=== PATIENT | female | born 1935 | race Caucasian/White ===

== ENCOUNTER 2023-05-04 12:01 | Outpatient (OUT) | payer MEDICARE, SELFPAY ==
[2023-05-04 13:05] LABS: Basophils Percent Auto 0.6 % (0.2-2.0); Eosinophils Percent Auto 0.5 % (0.9-7.0); Hematocrit 43.5 % (36.0-48.0); Hemoglobin 14.1 g/dL (12.0-16.0); Immature Granulocytes Abs Auto 0.01 10^3/uL (0.00-0.03); Immature Granulocytes Pct Auto 0.2 % (0.0-0.5); Lymphocytes Absolute Auto 1.3 10^3/uL (1.2-3.8); Lymphocytes Percent Auto 20.4 % (20.5-60.0); Mean Corpuscular HGB Conc 32.4 g/dL (29.9-35.2); Mean Corpuscular Hemoglobin 30.5 pg (26.7-34.0); Mean Corpuscular Volume 94.2 fL (81.0-99.0); Mean Platelet Volume 9.4 fL (9.5-13.5); Monocytes Absolute Auto 0.5 10^3/uL (0.3-0.8); Neutrophils Absolute Auto 4.7 10^3/uL (1.4-6.5); Neutrophils Percent Auto 71.3 % (43.0-75.0); Platelet Count 221 10^3/uL (150-450); Red Blood Count 4.62 10^6/uL (4.20-5.40); Red Cell Distribution Width 13.2 % (11.0-15.0); White Blood Count 6.5 10^3/uL (4.0-11.0)
[2023-05-04 13:32] LABS: Alanine Aminotransferase 32 U/L (14-59); Albumin Globulin Ratio 0.9; Albumin Level 3.5 g/dL (3.4-5.0); Alkaline Phosphatase 138 U/L (46-116); Anion Gap 14.2; Aspartate Amino Transferase 23 U/L (15-37); BUN Creatinine Ratio 20.2; Bilirubin Total 0.5 mg/dL (0.2-1.0); Calcium 9.1 mg/dL (8.5-10.1); Carbon Dioxide 24.1 mmol/L (21.0-32.0); Chloride 104 mmol/L (98-107); Estimated GFR (African America 57 (>=60); Estimated GFR (Non-African Ame 47 (>=60); Globulin 3.7 g/dL; Glucose 98 mg/dL (74-106); Potassium 4.3 mmol/L (3.5-5.1); Sodium 138 mmol/L (136-145); Total Protein 7.2 g/dL (6.4-8.2)
[2023-05-04 14:02] LABS: Bilirubin Urine NEGATIVE (NEGATIVE); Blood Urine SMALL (NEGATIVE); Clarity Urine CLEAR (CLEAR); Color Urine YELLOW (YELLOW); Glucose Urine UA NEGATIVE (NEGATIVE); Ketones Urine NEGATIVE (NEGATIVE); Leukocyte Esterase Urine LARGE (NEGATIVE); Nitrite Urine POSITIVE (NEGATIVE); Protein Urine 100 mg/dL (NEG/TRACE); Specific Gravity Urine 1.015 (1.005-1.025); Urobilinogen Urine 0.2 EU/dL (0.2-1.0); pH Urine >=9.0 (5.0-9.0)
== END 2023-05-04 12:02 | disposition home or self-care (01) ==
LOC: LAB 12:14
PROVIDERS: PCP Internal Medicine
DX: R41.3 Other amnesia (principal)
CPT/HCPCS: 36415; 80053; 81003; 85025; 87086; 87150; 87186

== ENCOUNTER 2023-10-12 12:24 | Outpatient (OUT) | payer MEDICARE, SELFPAY ==
[2023-10-12 13:05] LABS: Alanine Aminotransferase 24 U/L (14-59); Albumin Globulin Ratio 0.7; Alkaline Phosphatase 126 U/L (46-116); Anion Gap 9.2; Aspartate Amino Transferase 19 U/L (15-37); BUN Creatinine Ratio 12.9; Bilirubin Total 0.3 mg/dL (0.2-1.0); Calcium 9.1 mg/dL (8.5-10.1); Carbon Dioxide 30.6 mmol/L (21.0-32.0); Chloride 106 mmol/L (98-107); Estimated GFR (African America 43 (>=60); Estimated GFR (Non-African Ame 36 (>=60); Globulin 4.1 g/dL; Glucose 99 mg/dL (74-106); Potassium 3.8 mmol/L (3.5-5.1); Sodium 142 mmol/L (136-145); Total Protein 7.1 g/dL (6.4-8.2)
[2023-10-12 13:12] LABS: Basophils Percent Auto 0.5 % (0.2-2.0); Eosinophils Absolute Auto 0.1 10^3/uL (0.0-0.7); Eosinophils Percent Auto 0.7 % (0.9-7.0); Hemoglobin 13.1 g/dL (12.0-16.0); Immature Granulocytes Abs Auto 0.02 10^3/uL (0.00-0.03); Immature Granulocytes Pct Auto 0.3 % (0.0-0.5); Lymphocytes Absolute Auto 1.3 10^3/uL (1.2-3.8); Lymphocytes Percent Auto 18.3 % (20.5-60.0); Mean Corpuscular HGB Conc 31.2 g/dL (29.9-35.2); Mean Corpuscular Hemoglobin 30.2 pg (26.7-34.0); Mean Corpuscular Volume 96.8 fL (81.0-99.0); Mean Platelet Volume 9.1 fL (9.5-13.5); Monocytes Absolute Auto 0.6 10^3/uL (0.3-0.8); Monocytes Percent Auto 7.5 % (1.7-12.0); Neutrophils Absolute Auto 5.3 10^3/uL (1.4-6.5); Neutrophils Percent Auto 72.7 % (43.0-75.0); Platelet Count 394 10^3/uL (150-450); Red Blood Count 4.34 10^6/uL (4.20-5.40); Red Cell Distribution Width 12.9 % (11.0-15.0); White Blood Count 7.3 10^3/uL (4.0-11.0)
== END 2023-10-12 12:25 | disposition home or self-care (01) ==
LOC: LAB 12:26
PROVIDERS: PCP Internal Medicine; Visit Provider Internal Medicine
DX: N18.31 Chronic kidney disease, stage 3a (principal); K76.0 Fatty (change of) liver, not elsewhere classified; R53.83 Other fatigue
CPT/HCPCS: 36415; 80053; 84443; 85025

== ENCOUNTER 2023-11-18 10:03 | Outpatient (OUT) | payer MEDICARE, SELFPAY ==
--- OUTSIDE RECORDS SUMMARY | 2023-11-18 10:06 | XMS_ITS | CCD ---
Author Name Unknown Address [address] [place] [address] Organization [facility] Care Team Providers Care Disk Sharpener Name Role Phone Moustapha Avina Primary Care Unavailable Daniel Domínguez Attending Unavailable Daniel Domínguez Admitting Unavailable Moustapha Avina Unavailable Unavailable Unavailable MOUSTAPHA AVINA Primary Care Physician [phone] Christel Ghotra Unavailable Unavailable Chasity Yuan Unavailable Unavailable NATE, DR NAYAK Attending Unavailable DANIELA, DR JACINTO Primary Care Unavailable NATE, DR NAYAK Consulting Unavailable HOAngelo, DR NAYAK Admitting Unavailable ZIEBER, DR ALEXANDER Hernandez Consulting Unavailable NADERER, DR DEL Pantoja Consulting Unavailable HAY, DR PATTERSON Consulting Unavailable HESHAM, LUZ Consulting Unavailable LUKirit .CASSIDY Consulting Unavailable LUE ., CASSIDY Bailey Admitting Unavailable LUE ., CASSIDY Bailey Attending Unavailable DANIELA, DR JACINTO Primary Care Unavailable YESICA ZAYAS Consulting Unavailable DANIELA, DR JACINTO Admitting Unavailable DANIELA, DR JACINTO Attending Unavailable DANIELA, DR JACINTO Consulting Unavailable DANIELA, DR JACINTO Primary Care Unavailable ZIEBCARMEN, DR ALEXANDER Hernandez Consulting Unavailable BENEDICT, DR MUNOZ Consulting Unavailable DANIELA, DR JACINTO Primary Care Unavailable BENEDICT, DR MUNOZ Admitting Unavailable BENEDICT, DR MUNOZ Attending Unavailable DANIELA, DR JACINTO Primary Care Unavailable DANIELA, DR JACINTO Admitting Unavailable DANIELA, DR JACINTO Attending Unavailable DANIELA, DR JACINTO Consulting Unavailable JUAREZ, DR GENO Kimbrough Consulting Unavailable DANIELA, DR JACINTO Admitting Unavailable DANIELA, DR JACINTO Attending Unavailable DANIELA, DR JACINTO Consulting Unavailable DANIELA, DR JACINTO Primary Care Unavailable ZIEBER, DR ALEXANDER Hernandez Consulting Unavailable DANIELA, DR JACINTO Primary Care Unavailable IRINA DUFFY Consulting Unavailable TATI, IRINA Admitting Unavailable IRINA DUFFY Attending Unavailable GENO LAU Consulting Unavailable Moustapha Avina Unavailable Margarito Harvey Unavailable KEIKO ROCK Attending Unavailable KEIKO ROCK Attending Unavailable Cassidy Parks Attending Unavailable Allergies Allergy Classification Reported Allergen(s) Allergy Type Date of Onset Reaction(s) Facility (2 sources) patient allergy list reviewed by nurse or physicia Propensity to adverse reactions 4 Comment:[employer] Other (1 source) No Known Medication Allergies; Translations: [No Known Medication Allergies] Propensity to adverse reactions (disorder) [facility] Repository Medications Current Medications Medication Drug Class(es) Dates Sig (Normalized) Sig (Original) amoxicillin 875 mg / clavulanate 125 mg oral tablet (3 sources) Penicillin-class Antibacterial Start: 08-23-2023 take 1 tablet by mouth every twelve hours Amoxicillin-Pot Clavulanate 875-125 MG 1 tablet Orally every 12 hrs for 7 days Aug, Active donepezil hydrochloride 10 mg oral tablet (14 sources) Start: 09-22-2022 donepezil 10 mg Tab Refills(s) 0 Start Date: 09/22/22 Status: Ordered doxepin hydrochloride 10 mg oral capsule (14 sources) Tricyclic Antidepressant Start: 09-22-2022 doxepin 10 mg Cap Refills(s) 0 Start Date: 09/22/22 Status: Ordered estradiol 0.1 mg/ml vaginal cream (3 sources) Estrogen Start: 09-22-2022 estradiol 0.1 mg/g Vag Crm See Instructions, 42.5 gm, Refill(s) 1, Apply pea sized amount to urethra 3x/week at night for 1 month, then 2x/week there after, [facility]pharmacy #[id number], 158, cm, 09/22/22 8:59:00 EST, Height/Length Dosing, 63.5, kg, 09/22/22 8:59:00 EST, Weight Dosing Start Date: 09/22/22 Status: Ordered lisinopril 10 mg oral tablet (14 sources) Angiotensin Converting Enzyme Inhibitor Start: 09-22-2022 lisinopril 10 mg Tab Refills(s) 0 Start Date: 09/22/22 Status: Ordered take 1 tablet by nadja th every twenty-four hours Lisinopril 20 MG 1 tablet Orally Once a day for 90 days Active memantine hydrochloride 5 mg oral tablet (14 sources) F-jangnk-J-aspartate Receptor Antagonist Start: 09-22-2022 memantine 5 mg Tab Refills(s) 0 Start Date: 09/22/22 Status: Ordered Completed/Discontinued Medications Medication Drug Class(es) Dates Sig (Normalized) Sig (Original) magnesium oxide 500 mg oral capsule (3 sources) Magnesium 500 MG CAPS TAKE 1 CAPSULE Daily Quantity: 0 Refills: 0 Ordered: 17-Aug-2021 DO Active Multi Vitamin Oral Tablet (3 sources) take 1 tablet by mouth once daily Multi Vitamin Oral Tablet TAKE 1 TABLET DAILY. Quantity: 0 Refills: 0 Ordered: 17-Aug-2021 DO Active sulfamethoxazole 800 mg / trimethoprim 160 mg oral tablet (7 sources) Dihydrofolate Reductase Inhibitor Antibacterial, Sulfonamide Antimicrobial Start: 05-09-2023 take 1 tablet by mouth every twelve hours Bactrim DS 800-160 MG 1 tablet Orally Twice a day for 5 days Apr, Not-Taking/PRN Vision Formula Eye Health Oral Capsule (3 sources) take 1 capsule by mouth once daily Vision Formula Eye Health Oral Capsule TAKE 1 CAPSULE Daily Quantity: 0 Refills: 0 Ordered: 17-Aug-2021 DO Active Problems Active Problems Problem Classification Problem Date Documented Da te Episodic/Chronic Abdominal pain (16 sources) Acute abdomen; Translations: [Left lower quadrant pain] Onset: 11-09-2016 Resolved: 01-01-2020 Episodic Allergic reactions (4 sources) Contact dermatitis; Translations: [Unspecified contact dermatitis, unspecified cause] Onset: 11-24-2022 Episodic Aortic; peripheral; and visceral artery aneurysms (17 sources) Aortic ectasia, unspecified site; Translations: [Dilatation of aorta] Onset: 06-08-2022 Chronic Blindness and vision defects (3 sources) Blindness AND/OR vision impairment level; Translations: [Profound impairment, both eyes, impairment level not further specified] Chronic Calculus of urinary tract (5 sources) Calculus of kidney; Translations: [Urolithiasis ] Onset: 10-15-2022 Episodic Cardiac dysrhythmias (3 sources) Palpitations; Translations: [Palpitations] Episodic Chronic kidney disease (16 sources) Chronic kidney disease; Translations: [Chronic kidney disease stage 3A ] Onset: 09-23-2021 09-21-2022 Chronic Delirium, dementia, and amnestic and other cognitive disorders (2 sources) Vascular dementia without behavioral disturbance; Translations: [Vascular dementia without behavioral disturbance] Chronic Diseases of white blood cells (1 source) Elevated white blood cell count, unspecified; Translations: [ELEVATED WHITE BLOOD CELL COUNT UNS] Onset: 06-21-2022 Chronic Disorders of lipid metabolism (3 sources) Hyperlipidemia 11-30-2013 Chronic Diverticulosis and diverticulitis (20 sources) Diverticulitis of large intestine without perforation or abscess without bleeding; Translations: [Diverticular disease] Onset: 10-24-2018 Resolved: 02-05-2020 Chronic Esophageal disorders (11 sources) Gastro-esophageal reflux disease with esophagitis; Translations: [Esophageal reflux finding] Onset: 08-09-2014 Resolved: 01-01-2020 09-21-2022 Chronic Essential hypertension (20 sources) Benign essential hypertension; Translations: [Benign essential hypertension] Onset: 06-21-2022 09-21-2022 Chronic Genitourinary congenital anomalies (1 source) Congenital multiple renal cysts; 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] Onset: 10-19-2022 Chronic Genitourinary symptoms and ill-defined conditions (8 sources) Dysuria; Translations: [Dysuria] Onset: 01-06-2018 Resolved: 10-04-2021 Episodic Immunizations and screening for infectious disease (5 sources) Patient encounter status; Translations: [Other specified vaccination] Resolved: 08-17-2021 Episodic Intestinal infection (14 sources) Enterocolitis due to Clostridium difficile, not specified as recurrent; Translations: [Clostridium difficile colitis] Onset: 04-12-2022 Episodic Malaise and fatigue (6 sources) Fatigue; Translations: [Other malaise and fatigue] Onset: 04-06-2016 Resolved: 01-01-2020 Episodic Miscellaneous mental health disorders (20 sources) Mental disorder; Translations: [Mental disorder, not otherwise specified] Chronic Mycoses (13 sources) Candidal intertrigo; Translations: [Candidiasis of skin and nail] Episodic Nonspecific chest pain (3 sources) Chest discomfort; Translations: [Other chest pain] Episodic Nutritional deficiencies (1 source) Moderate protein-calorie malnutrition; Translations: [MODERATE PROTEIN-CALORIE MLNUTRIT] Onset: 06-21-2022 Chronic Osteoarthritis (20 sources) Osteoarthritis of knee; Translations: [Unilateral primary osteoarthritis, right knee] Onset: 08-09-2014 Resolved: 01-01-2020 Chronic Osteoporosis (11 sources) Primary osteoporosis; Translations: [Age-related osteoporosis without current pathological fracture] Chronic Other and ill-defined cerebrovascular disease (11 sources) Cerebral amyloid angiopathy; Translations: [Cerebral amyloid angiopathy] Chronic Other and ill-defined cerebrovascular disease (2 sources) Cerebral amyloid angiopathy Chronic Other and unspecified benign neoplasm (1 source) Benign lipomatous neoplasm of kidney; Translations: [BENIGN LIPOMATOUS NEOPLASM KIDNEY] Onset: 10-19-2022 Episodic Other and unspecified benign neoplasm (1 source) Angiomyolipoma of kidney; Translations: [Benign lipomatous neoplasm of kidney] Onset: 11-24-2022 Episodic Other and unspecified benign neoplasm (1 source) Angiomyolipoma of right kidney 11-24-2022 Episodic Other circulatory disease (13 sources) Elevated blood-pressure reading without diagnosis of hypertension; Translations: [Elevated blood-pressure reading, without diagnosis of hypertension] Episodic Other connective tissue disease (1 source) Presence of left artificial hip joint; Translations: [PRESENCE LEFT ARTIFICIAL HIP JOINT] Onset: 11-11-2021 Chronic Other connective tissue disease (11 sources) History of total hip arthroplasty; Translations: [Presence of left artificial hip joint] Chronic Other ear and sense organ disorders (2 sources) Sensorineural hearing loss, bilateral; Translations: [Sensorineural hearing loss, bilateral] Chronic Other ear and sense organ disorders (11 sources) Bilateral tinnitus; Translations: [Tinnitus, bilateral] Episodic Other gastrointestinal disorders (11 sources) Irritable bowel syndrome characterized by constipation; Translations: [Irritable bowel syndrome with constipation] Chronic Other gastrointestinal disorders (13 sources) Constipation; Translations: [Constipation, unspecified] Resolved: 02-05-2020 Episodic Other gastrointestinal disorders (1 source) Constipation, unspecified Episodic Other hereditary and degenerative nervous system conditions (6 sources) Mild cognitive impairment, so stated; Translations: [MILD COGNITIVE IMPAIRMENT SO STATED] Onset: 12-30-2021 Chronic Other hereditary and degenerative nervous system conditions (9 sources) Impaired cognition; Translations: [Mild cognitive impairment, so stated] Chronic Other injuries and conditions due to external causes (1 source) Foreign body in right ear, initial encounter Episodic Other injuries and conditions due to external causes (2 sources) History of fall; Translations: [History of falling] Episodic Other liver diseases (11 sources) Non-alcoholic fatty liver; Translations: [Fatty (change of) liver, not elsewhere classified] Chronic Other liver diseases (2 sources) Fatty (change of) liver, not elsewhere classified Chronic Other liver diseases (2 sources) Steatosis of liver; Translations: [Fatty (change of) liver, not elsewhere classified] Chronic Other lower respiratory disease (3 sources) Dyspnea; Translations: [Other respiratory abnormalities] Episodic Other nervous system disorders (9 sources) Abnormal gait; Translations: [Unsteadiness on feet] Episodic Other nervous system disorders (2 sources) Unsteadiness on feet Episodic Other non-traumatic joint disorders (4 sources) Arthralgia of the pelvic region and thigh; Translations: [Pain in left hip] Onset: 03-31-2018 Resolved: 01-01-2020 Episodic Other nutritional; endocrine; and metabolic disorders (2 sources) Localized amyloidosis; 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] Onset: 09-19-2021 Chronic Other nutritional; endocrine; and metabolic disorders (13 sources) Overweight; Translations: [Overweight] Episodic Other nutritional; endocrine; and metabolic disorders (2 sources) Abnormal weight loss; Translations: [Abnormal weight loss] Episodic Ivonne-; endo-; and myocarditis; cardiomyopathy (except that caused by tuberculosis or sexually transmitted disease) (2 sources) Hypertrophic cardiomyopathy; Translations: [Other hypertrophic cardiomyopathy] Chronic Residual codes; unclassified (11 sources) Auditory hallucinations; Translations: [Auditory hallucinations] Episodic Residual codes; unclassified (2 sources) Auditory hallucinations Episodic Schizophrenia and other psychotic disorders (13 sources) Delusional disorder; Translations: [Delusional disorders] Chronic Spondylosis; intervertebral disc disorders; other back problems (16 sources) Spondylosis without myelopathy or radiculopathy, lumbar region; Translations: [Lumbar spondylosis] Onset: 11-11-2021 Chronic Unclassified (1 source) M16.12 - Unilateral primary osteoarthritis, left hip; Translations: [M16.12 - Unilateral primary osteoarthritis, left hip] Onset: 01-17-2019 Unclassified (3 sources) Entire lumbar disc (body structure) 01-18-2011 Unclassified (3 sources) GASTR-ESOPH RFLX DS ESPHGTS W/O BLD; Translations: [GASTR-ESOPH RFLX DS ESPHGTS W/O BLD] Onset: 05-25-2022 Unclassified (1 source) CONTACT W/AND (SUSP) EXPOS COVID-19; Translations: [CONTACT W/AND (SUSP) EXPOS COVID-19] Onset: 06-21-2022 Unclassified (2 sources) Elevation of levels of liver transaminase levels; Translations: [Elevation of levels of liver transaminase levels] Urinary tract infections (15 sources) Urinary tract infectious disease; Translations: [Urinary tract infection, site not specified] Onset: 05-03-2022 Episodic Past or Other Problems Problem Classification Problem Date Documented Date Episodic/Chronic Attention-deficit, conduct, and disruptive behavior disorders (2 sources) Smearing feces; Translations: [Fecal smearing] Onset: 7 Resolved: 0 Episodic Bacterial infection; unspecified site (2 sources) Bacterial infectious disease; Translations: [Bacterial infection, unspecified, in conditions classified elsewhere and of unspecified site] Onset: 8 Resolved: 0 Episodic Blindness and vision defects (2 sources) Visual hallucinations; Translations: [Visual hallucinations] Resolved: 1 Episodic Chronic kidney disease (3 sources) Chronic kidney disease Conditions associated with dizziness or vertigo (10 sources) Benign paroxysmal positional vertigo; Translations: [Benign paroxysmal vertigo, bilateral] Onset: 6 Resolved: 0 Episodic Esophageal disorders (9 sources) Esophageal disorders; Translations: [Gastroesophageal reflux disease with esophagitis without hemorrhage] Headache; including migraine (2 sources) Headache; Translations: [Headache, unspecified] Onset: 4 Resolved: 0 Episodic Menopausal disorders (7 sources) Atrophic vaginitis; Translations: [Postmenopausal atrophic vaginitis] Onset: 7 Resolved: 0 Chronic Nausea and vomiting (3 sources) Vomiting, unspecified; Translations: [VOMITING UNSPECIFIED] Onset: 2 Episodic Open wounds of extremities (2 sources) Laceration of upper arm; Translations: [Laceration without foreign body of right upper arm, initial encounter] Resolved: 2 Episodic Other aftercare (1 source) Other watermelon harvesting supervisor (current) drug therapy; Translations: [OTH GOLF COURSE MANAGER CURRENT DRUG THERAPY] Onset: 2 Episodic Other aftercare (1 source) tank terminal gauger (current) use of anticoagulants; Translations: [GOLF COURSE MANAGER CURRNT USE ANTICOAGULANTS] Onset: 2 Episodic Other ear and sense organ disorders (2 sources) Sensorineural hearing loss; Translations: [Unspecified sensorineural hearing loss] Onset: 6 Resolved: 0 Chronic Other ear and sense organ disorders (2 sources) Otitis externa of left ear; Translations: [Unspecified otitis externa, left ear] Onset: 6 Resolved: 0 Chronic Other ear and sense organ disorders (2 sources) Tinnitus; Translations: [Unspecified tinnitus] Onset: 6 Resolved: 0 Episodic Other ear and sense organ disorders (2 sources) Otalgia; Translations: [Otalgia, left ear] Onset: 6 Resolved: 0 Episodic Other gastrointestinal disorders (2 sources) Irritable bowel syndrome with diarrhea; Translations: [Irritable bowel syndrome with diarrhea] Onset: 8 Resolved: 0 Chronic Other gastrointestinal disorders (2 sources) Pharyngeal dysphagia; Translations: [Dysphagia, pharyngoesophageal phase] Onset: 7 Resolved: 0 Episodic Other gastrointestinal disorders (2 sources) Flatulence, eructation and gas pain; Translations: [Abdominal distension (gaseous)] Onset: 7 Resolved: 0 Episodic Other gastrointestinal disorders (2 sources) Heartburn; Translations: [Heartburn] Onset: 4 Resolved: 0 Episodic Other gastrointestinal disorders (2 sources) Oropharyngeal dysphagia; Translations: [Dysphagia, oropharyngeal phase] Onset: 8 Resolved: 0 Episodic Other gastrointestinal disorders (2 sources) Slow transit constipation; Translations: [Slow transit constipation] Onset: 7 Episodic Other hereditary and degenerative nervous system conditions (2 sources) Mild cognitive disorder ; Translations: [Mild cognitive impairment, so stated] Resolved: 2 Chronic Other liver diseases (2 sources) Elevated levels of transaminase & lactic acid dehydrogenase; Translations: [Nonspecific elevation of levels of transaminase or lactic acid dehydrogenase (LDH)] Onset: 5 Resolved: 0 Episodic Other nervous system disorders (2 sources) Paresthesia; Translations: [Paresthesia of skin] Onset: 4 Resolved: 0 Episodic Other non-traumatic joint disorders (4 sources) Pain in left hip; Translations: [PAIN IN LEFT HIP] Onset: 2 Episodic Other non-traumatic joint disorders (4 sources) Shoulder joint pain; Translations: [Pain in left shoulder] Onset: 6 Resolved: 0 Episodic Other non-traumatic joint disorders (2 sources) Arthralgia of the lower leg; Translations: [Pain in right knee] Resolved: 2 Episodic Other nutritional; endocrine; and metabolic disorders (5 sources) Obesity; Translations: [Obesity, unspecified] Onset: 4 Resolved: 0 Chronic Other nutritional; endocrine; and metabolic disorders (4 sources) Body mass index 30+ - obesity; Translations: [Body Mass Index 30.0-30.9, adult] Onset: 6 Resolved: 0 Chronic Other nutritional; endocrine; and metabolic disorders (6 sources) Obese class I; Translations: [Body mass index (BMI) 31.0-31.9, adult] Onset: 4 Resolved: 0 Chronic Other nutritional; endocrine; and metabolic disorders (2 sources) Simple obesity ; Translations: [Other obesity due to excess calories] Onset: 4 Resolved: 0 Chronic Other nutritional; endocrine; and metabolic disorders (1 source) Body mass index (BMI) 26.0-26.9, adult; Translations: [BODY MASS INDEX BMI 26.0-26.9 ADULT] Onset: 2 Episodic Other nutritional; endocrine; and metabolic disorders (2 sources) Body mass index 25-29 - overweight; Translations: [Body mass index 29.0-29.9, adult] Onset: 6 Resolved: 0 Episodic Other screening for suspected conditions (not mental disorders or infectious disease) (1 source) Other specified abnormal findings of blood chemistry; Translations: [OTH SPEC ABNORMAL FINDINGS BLD CHEM] Onset: 2 Episodic Other skin disorders (2 sources) Alopecia; Translations: [Unspecified alopecia] Onset: 4 Resolved: 0 Episodic Other skin disorders (2 sources) Actinic keratosis; Translations: [Actinic keratosis] Onset: 4 Resolved: 0 Episodic Other upper respiratory disease (2 sources) Vasomotor rhinitis; Translations: [Vasomotor rhinitis] Onset: 7 Resolved: 0 Chronic Skin and subcutaneous tissue infections (2 sources) Cellulitis of right upper limb; Translations: [Cellulitis of right upper limb] Resolved: 2 Episodic Spondylosis; intervertebral disc disorders; other back problems (6 sources) Low back pain; Translations: [Low back pain, unspecified] Onset: 5 Resolved: 2 Episodic Superficial injury; contusion (4 sources) Contusion of left foot; Translations: [Contusion of left foot, initial encounter] Resolved: 2 Episodic Unclassified (3 sources) Never smoked tobacco; Translations: [Never a smoker] Unclassified (1 source) GASTR-ESOPH RFLX DS ESPHGTS W/O BLD; Translations: [GASTR-ESOPH RFLX DS ESPHGTS W/O BLD] Onset: 2 Unclassified (11 sources) Elevated liver transaminase level; Translations: [Elevated liver transaminase level] Unclassified (2 sources) Other and unspecified Escherichia coli [E. coli] infection in conditions classified elsewhere and of unspecified site; Translations: [Other and unspecified Escherichia coli [E. coli] infection in conditions classified elsewhere and of unspecified site] Onset: 7 Resolved: 0 Results Test Name Value Interpretation Reference Range Facility Screenson 05-05-2023 Screens [id number] 1.00CD:127 Normal [facility] Ambulatory Visit Summaryon 0 05-04-2023 Ambulatory Visit Summary SHAYNA GARCIA :1935 Visit Date:05/04/2023 Ambulatory Visit Instructions Your Diagnosis Contact dermatitis Recurrent UTI Angiomyolipoma of right kidney Vaginal atrophy Your Care Team Attending Physician - Charly TODD, Cassidy Hanson Primary Care Physician - MOUSTAPHA AVINA DO This Is Your Medications List estradiol topical (estradiol 0.1 mg/g Vag Crm) Contact prescribing physician if questions or concerns donepezil (donepezil 10 mg Tab) doxepin (doxepin 10 mg Cap) lisinopril (lisinopril 10 mg Tab) memantine (memantine 5 mg Tab) Procedures Performed Appendectomy, bilat hip OA, Cholecystectomy, degenerative disc disease; DJD, Excision of melanoma, lumbar stenosis. Discharge Vitals Height 158 cm Height 62 in Weight 63 kg Weight 138.6 lb BMI 25.24 What to do next Scheduled Follow-Up Appointments Tuesday 8:30 AM EST With: PRANAV HARRY, KEIKO Beth Where: [facility] Patient Educationon 05-04-20 23 Patient Education Urinary Tract Infection, Adult A urinary tract infection (UTI) is an infection of any part of the urinary tract. The urinary tract includes: ? The kidneys. ? The ureters. ? The bladder. ? The urethra. These organs make, store, and get rid of pee (urine) in the body. What are the causes? This infection is caused by germs (bacteria) in your genital area. These germs grow and cause swelling (inflammation) of your urinary tract. What increases the risk? The following factors may make you more likely to develop this condition: ? Using a small, thin tube (catheter) to drain pee. ? Not being able to control when you pee or poop (incontinence). ? Being female. If you are female, these things can increase the risk: ? Using these methods to prevent : ? A medicine that kills sperm (spermicide). ? A device that blocks sperm (diaphragm). ? Having low levels of a female hormone (estrogen). ? Being . You are more likely to develop this condition if: ? You have genes that add to your risk. ? You are sexually active. ? You take antibiotic medicines. ? You have trouble peeing because of: ? A prostate that is bigger than normal, if you are male. ? A blockage in the part of your body that drains pee from the bladder. ? A kidney stone. ? A nerve condition that affects your bladder. ? Not getting enough to drink. ? Not peeing often enough. ? You have other conditions, such as: ? Diabetes. ? A weak disease-fighting system (immune system). ? Sickle cell disease. ? Gout. ? Injury of the spine. What are the signs or symptoms? Symptoms of this condition include: ? Needing to pee right away. ? Peeing small amounts often. ? Pain or burning when peeing. ? Blood in the pee. ? Pee that smells bad or not like normal. ? Trouble peeing. ? Pee that is cloudy. ? Fluid coming from the vagina, if you are female. ? Pain in the belly or lower back. Other symptoms include: ? Vomiting. ? Not feeling hungry. ? Feeling mixed up (confused). This may be the first symptom in older adults. ? Being tired and grouchy (irritable). ? A fever. ? Watery poop (diarrhea). How is this treated? ? Taking antibiotic medicine. ? Taking other medicines. ? Drinking enough water. In some cases, you may need to see a specialist. Follow these instructions at home: Medicines ? Take glgi-quc-ghlvhkj and prescription medicines only as told by your doctor. ? If you were prescribed an antibiotic medicine, take it as told by your doctor. Do not stop taking it even if you start to feel better. General instructions ? Make sure you: ? Pee until your bladder is empty. ? Do not hold pee for a long time. ? Empty your bladder after sex. ? Wipe from front to back after peeing or pooping if you are a female. Use each tissue one time when you wipe. ? Drink enough fluid to keep your pee pale yellow. ? Keep all follow-up visits. Contact a doctor if: ? You do not get better after 1?2 days. ? Your symptoms go away and then come back. Get help right away if: ? You have very bad back pain. ? You have very bad pain in your lower belly. ? You have a fever. ? You have chills. ? You feeling like you will vomit or you vomit. Summary ? A urinary tract infection (UTI) is an infection of any part of the urinary tract. ? This condition is caused by germs in your genital area. ? There are many risk factors for a UTI. ? Treatment includes antibiotic medicines. ? Drink enough fluid to keep your pee pale yellow. This information is not intended to replace advice given to you by your health care provider. Make sure you discuss any questions you have with your health care provider. Document Revised: 04/17/2021 Document Reviewed: 04/17/2021 [facility] Patient Education ? 2022 [employer]. Obstetrics and Gynecology Urinary Tract Infection, Adult A urinary tract infection (UTI) is an infection of any part of the urinary tract. The urinary tract includes: ? The kidneys. ? The ureters. ? The bladder. ? The urethra. These organs make, store, and get rid of pee (urine) in the body. What are the causes? This infection is caused by germs (bacteria) in your genital area. These germs grow and cause swelling (inflammation) of your urinary tract. What increases the risk? The following factors may make you more likely to develop this condition: ? Using a small, thin tube (catheter) to drain pee. ? Not being able to control when you pee or poop (incontinence). ? Being female. If you are female, these things can increase the risk: ? Using these methods to prevent : ? A medicine that kills sperm (spermicide). ? A device that blocks sperm (diaphragm). ? Having low levels of a female hormone (estrogen). ? Being . You are more likely to develop this condition if: ? You h (more content not included)... Normal [facility] Urology Office/Clinic Noteon 05-04-2023 Urology Office/Clinic Note Chief Complaint uti symptoms? 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 I explained the patient her anatomy several times and tried to get an answer on if the burning was urethral or not. Dysuria: no Incomplete bladder emptying: no Hematuria: mo Frequency: no Urgency: mild Nocturia: 2x Stream: good stream Leaking: no Post void dripping: no Wearing pads/ Depends: no Urge incontinence: no Stress incontinence: no Incontinence without Sensory Awareness: no Abdominal pain: no Flank pain: no Sexual complaints: no History of Present Illness Tests reviewed: reviewed UA I have reviewed the previous health record information and history for this patient from [facility] U[facility] I have reviewed and verified the staff HPI to be accurate for this encounter. There have been no associated fever, chills, flank pain, or blood in the urine. Denies any urinary infections since last encounter. Review of Systems PHQ Score Initial Depression Screen Score: 0 ROS - Provider Constitutional: denies weight loss, denies hot flashes. Eyes: denies eye problems. Gastrointestinal: denies nausea, denies vomiting. Cardiovascular: denies chest pain or angina. Integumentary: no dryness Musculoskeletal: denies musculoskeletal symptoms. ENMT: denies otolaryngeal symptoms. Respiratory: no shortness of breath. Heme/Lymph: denies easy bleeding tendency, denies easy bruising tendency. Psychiatric: no confusion, no anxiety. Genitourinary: See HPI. Physical Exam Vitals & Measurements HT: 62 in HT: 158 cm WT: 63 kg WT: 138.6 lb BMI: 25.24 General Appearance: alert , no acute distress, well nourished, well developed female. Genitourinary: bladder nonpalpable, no flank pain. Vaginal examination: Vaginal mucosa: There is severe vaginal atrophy The urethra is patent, orthotopic, moderate urethral mucosal prolapse. There are no masses or lesions. There is no urethral hypermobility and ABRAM is not seen. She is unable to correctly identify her pelvic muscles. Stage 2 (-1) anterior prolapse, stage 2 rectocele to level of introitus with valsalva. Left inner labia with mild irritation/bumps. Mild erythema BL. No discharge. Assessment/Plan 87 yo F here for follow up for recurrent UTIs and vaginal skin burning with urination. Presents with daughter today who serves as historian given her poor memory. 1. Contact dermatitis (L25.9: Unspecified contact dermatitis, unspecified cause) Previously evaluated by Anabelle Rock for burning type pain on the interior of the left labia. No itching. No discharge. Has had yeast infection previously and this feels different. Pt does not know if she has been using a barrier cream(Desitin, Aquaphor) or Estrace cream. Advised pt to start using a Barrier cream and Estrace Cream again. Prior notes states she had improvement with Estrace cream regarding pain at the urethra. Now she is having pain on the skin from urine. -Educated pt on proper application technique of the Estrace Cream. Apply pea-sized amount around the opening of the urethra and surrounding tissue 3 times per week at night for one month then 2 times per week after for maintenance. Pt to stop cream and notify office if she experiences breast tenderness and/or bleeding. Refill sent to pharm on file. -Advised pt to contact [employer] or automobile salesman regarding skin irritation. -Again discussed importance of bowel regimen. Pt was referred to a GI doctor at prior OV, but pt does not recall if she went to see the GI doctor. Pt has 1 yr f/u w/LIYA in 11/2023 sched already. 2. Recurrent UTI (N39.0: Urinary tract infection, site not specified) CT 10/15/22 showed no renal calculus. BBS 19 No UTIs since last visit. Pt does not know if she has been using estrogen cream 2x per week as instructed. -Advised pt on proper wiping techniques. -Restart Estrace cream as above 3. 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 -Follow up with Anabelle Rock as scheduled with renal ultrasound 4. 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 States dysuria/urethral pain has completely resolved previously when she started. Reminded patient of her outcomes and discussed trial of starting this again. -Restart Estrace cream I spent 30 minutes today with the patient: reviewing tests in (more content not included)... Normal [facility] Comment on above: Result Comment: Elec tronically Signed By: Cassidy Parks MD\.br\Date and Time Signed: 05/04/23 18:22 EDT\.br\Electronically Co-Signed By: Xuan Mortensen\.br\Date and Time Co-Signed: 05/04/23 11:43 EDT Consultation Noteon 12-11-19 Consultation Note [id number]#1. 00CD:127 [place] Ambulatory Visit Summaryon 0 11-24-2022 Ambulatory Visit Summary SMILEY GARCIAОлег Delcid :[id number] Visit Date:11/24/2022 Ambulatory Visit Instructions Your Diagnosis Recurrent UTI Tests Performed Urnls Dip Stick Auto w/o Microscopy POC 98059 Your Care Team Attending Physician - KEIKO ROCK PA-C Primary Care Physician - MOUSTAPHA AVINA DO This Is Your Medications List donepezil (donepezil 10 mg Tab) doxepin (doxepin 10 mg Cap) estradiol topical (estradiol 0.1 mg/g Vag Crm) lisinopril (lisinopril 10 mg Tab) memantine (memantine 5 mg Tab) Procedures Performed Appendectomy, bilat hip OA, Cholecystectomy, degenerative disc disease; DJD, Excision of melanoma, lumbar stenosis. Discharge Vitals Heart Rate (Peripheral) 70 Blood Pressure 127/86 Height 158 cm Height 62 in Weight 63 kg Weight 138.6 lb BMI 25.24 What to do next Scheduled Follow-Up Appointments Tuesday 8:30 AM EST With: KEIKO ROCK PA-C Where: [facility] Patient Educationon 11-25-19 Patient Education Obstetrics and Gynecology Atrophic Vaginitis Atrophic vaginitis is a condition in which the tissues that line the vagina become dry and thin. This condition is most common in women who have stopped having regular menstrual periods (are in menopause). This usually starts when a woman is 45?55 years old. That is the time when a woman's estrogen levels begin to drop (decrease). Estrogen is a female hormone. It helps to keep the tissues of the vagina moist. It stimulates the vagina to produce a clear fluid that lubricates the vagina for sexual intercourse. This fluid also protects the vagina from infection. Lack of estrogen can cause the lining of the vagina to get thinner and dryer. The vagina may also shrink in size. It may become less elastic. Atrophic vaginitis tends to get worse over time as a woman's estrogen level drops. What are the causes? This condition is caused by the normal drop in estrogen that happens around the time of menopause. What increases the risk? Certain conditions or situations may lower a woman's estrogen level, leading to a higher risk for atrophic vaginitis. You are more likely to develop this condition if: ? You are taking medicines that block estrogen. ? You have had your ovaries removed. ? You are being treated for cancer with X-ray (radiation) or medicines (chemotherapy). ? You have given or are . ? You are older than age 50. ? You smoke. What are the signs or symptoms? Symptoms of this condition include: ? Pain, soreness, or bleeding during sexual intercourse (dyspareunia). ? Vaginal burning, irritation, or itching. ? Pain or bleeding when a speculum is used in a vaginal exam (pelvic exam). ? Having burning pain when passing urine. ? Vaginal discharge that is brown or yellow. In some cases, there are no symptoms. How is this diagnosed? This condition is diagnosed by taking a medical history and doing a physical exam. This will include a pelvic exam that checks the vaginal tissues. Though rare, you may also have other tests, including: ? A urine test. ? A test that checks the acid balance in your vagina (acid balance test). How is this treated? Treatment for this condition depends on how severe your symptoms are. Treatment may include: ? Using an gdbv-hoz-swxmgpr vaginal lubricant before sex. ? Using a long-acting vaginal moisturizer. ? Using low-dose vaginal estrogen for moderate to severe symptoms that do not respond to other treatments. Options include creams, tablets, and inserts (vaginal rings). Before you use a vaginal estrogen, tell your health care provider if you have a history of: ? Breast cancer. ? Endometrial cancer. ? Blood clots. If you are not sexually active and your symptoms are very mild, you may not need treatment. Follow these instructions at home: Medicines ? Take oeuh-xks-mthhcxt and prescription medicines only as told by your health care provider. Do not use herbal or alternative medicines unless your health care provider says that you can. ? Use spvs-pgq-xsrzlwd creams, lubricants, or moisturizers for dryness only as directed by your health care provider. General instructions ? If your atrophic vaginitis is caused by menopause, discuss all of your menopause symptoms and treatment options with your health care provider. ? Do not douche. ? Do not use products that can make your vagina dry. These include: ? Scented feminine sprays. ? Scented tampons. ? Scented soaps. ? Vaginal intercourse can help to improve blood flow and elasticity of vaginal tissue. If it hurts to have sex, try using a lubricant or moisturizer just before having intercourse. Contact a health care provider if: ? Your discharge looks different than normal. ? Your vagina has an unusual smell. ? You have new symptoms. ? Your symptoms do not improve with treatment. ? Your symptoms get worse. Summary ? Atrophic vaginitis is a condition in which the tissues that line the vagina become dry and thin. It is most common in women who have stopped having regular menstrual periods (are in menopause). ? Treatment options include using vaginal lubricants and low-dose vaginal estrogen. ? Contact a health care provider if your vagina has an unusual smell, or if your symptoms get worse or do not improve after treatment. This information is not intended to replace advice given to you by your health care provider. Make sure you discuss any questions you have with your health care provider. Document Released: 01/20/2016 Document Revised: 08/18/2018 Document Reviewed: 06/01/2018 [facility] Patient Education ? 2019 [employer]. [place] Reminderson 11-24-2022 Reminders - From: KEIKO ROCK PA-C To: TONYA - Wally Rock; Sent: 11/24/2022 11:11:50 EST Show up: 10/27/2023 11:11:00 EST Subject: DEIDRE Due Date/Time: 11/25/2023 11:11:00 EST needs DEIDRE for angiomyolipoma f/u prior to 1 yr f/u in november 2023 [place] [facility] Office/Clinic Noteon 11-24-2022 Urology Office/Clinic Note Chief Complaint Pt is here for 2 month follow up HPI Staff Shayna is a 87 y.o. female here for 2 month follow up. Previous Dx: CKD, distended bladder, recurrent UTI, urinary tract stones, vaginal atrophy. No urological procedures. Pt is applying Estradiol cream 2x a week. No UTI since last visit. Previous PVR 30mL. CT ab/p w/o con done on 10/15/22 showed no renal calculus or hydronephrosis, multiple bilateral renal cysts, small angiomyolipoma in the upper pole of the RT kidney. Dysuria: denies, outside burning Incomplete bladder emptying: denies Hematuria: denies Frequency: denies Urgency: yes Nocturia: 1x a night Stream: steady stream Leaking: mild Post void dripping: yes Wearing pads/ Depends: yes wears pads on occasion Urge incontinence: denies Stress incontinence: denies Incontinence without Sensory Awareness: denies Abdominal pain: denies Flank pain: back pain but travels down to knee Sexual complaints: _ Review of Systems PHQ Score Initial Depression Screen Score: 0 no fever, chills, malaise, myalgia. no rash/lesions. no chest pain, palpitations, or SOB. no abdominal pain, nausea, vomiting. no unilateral calf swelling, redness, pain Physical Exam Vitals & Measurements HR: 70(Peripheral) BP: 127/86 HT: 62 in HT: 158 cm WT: 63 kg WT: 138.6 lb BMI: 25.24 General: nontoxic, NAD Mouth: moist mucosa Lungs: normal respiratory effort Cardio: regular rate, good distal perfusion Abdomen: nondistended, no suprapubic distention or tenderness, no CVA tenderness Neurologic: Grossly normal Skin: No rashes or suspicious lesions Assessment/Plan 1. 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 will obtain DEIDRE in 1 yr to document stability. then due to advanced age, we can likely stop monitoring thereafter. Ordered: E&M of Est. Patient Moderate 30-39 Min 20849 E&M of Est. Patient Moderate 30-39 Min 10356 2. Recurrent UTI (N39.0: Urinary tract infection, site not specified) No UTIs since last visit. Has been using estrogen cream 2x per week as instructed. CT 10/15/22 showed no renal calculus. Ordered: E&M of Est. Patient Moderate 30-39 Min 24691 E&M of Est. Patient Moderate 30-39 Min 13240 Urnls Dip Stick Auto w/o Microscopy POC 02332 3. 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 States dysuria/urethral pain has completely resolved. Very pleased. Ordered: E&M of Est. Patient Moderate 30-39 Min 99982 E&M of Est. Patient Moderate 30-39 Min 92028 4. Contact dermatitis (L25.9: Unspecified contact dermatitis, unspecified cause) Reports burning type pain on the interior of the left labia. No itching. No discharge. Has had yeast infection previously and this feels different. Tried Gold Manriquez powder. Has been going on for months. No evidence of infection noted on pelvic exam 09/22/22. Likely secondary to #3 or contact dermatitis from the urine. Continue estrogen cream. Dc powder. Apply barrier cream (Desitin, Aquaphor) several times daily to both labia to protect. Monitor. If sx do not resolve then return to office for pelvic exam/possible swabs. Ordered: E&M of Est. Patient Moderate 30-39 Min 17433 E&M of Est. Patient Moderate 30-39 Min 70663 f/u 1 yr w DEIDRE prior. sooner if vaginal pain does not resolve w use of barrier cream. Total time spent reviewing previous notes/results/externa l documents, preparing the chart, conducting the encounter with the patient and family, ordering tests/medications, and documenting the encounter was 30 minutes. Follow-up With When Contact Information KEIKO ROCK PA-C, URL Within 1 year Additional Instructions: Patient Education Atrophic Vaginitis Problem List/Past Medical History Ongoing Angiomyolipoma of right kidney Benign essential hypertension Chronic kidney disease Contact dermatitis Gastro-esophageal reflux disease with esophagitis Hyperlipidemia Lumbar disc Recurrent UTI Urinary tract stones Vaginal atrophy Historical No qualifying data Procedure/Surgical History Appendectomy, bilat hip OA, Cholecystectomy, degenerative disc disease; DJD, Excision of melanoma, lumbar stenosis. Medications donepezil 10 mg Tab doxepin 10 mg Cap estradiol 0.1 mg/g Vag Crm, See Instructions, 1 refills lisinopril 10 mg Tab memantine 5 mg Tab Allergies No Known Medication Allergies Social History Tobacco Never (less than 100 in lifetime) Tobacco Use:., 09/22/2022 Immunizations Vaccine Date Status influenza virus vaccine, inactivated 07/17/2021 Recorded influenza virus vaccine, inactivated 06/04/2020 Recorded pneumococcal 13-valent vaccine 02/15/2020 Recorded Lab Results Ambulatory Point of Care Results Bilirubin Urine Dipstick: Negative (11/24/22 09:27:00) Blood Urine Dipstick: Negative (11/24/22 09:27:00) Glu (more content not included)... Normal [facility] Comment on above: Result Comment: Elec tronically Signed By: KEIKO ROCK PA-C\prema\Date and Time Signed: 11/24/22 12:[address] ABD/PELVIS WO CONon 10-15 CT ABD/PELVIS WO CON EXAMINATION: CT ABD/PELVIS WO CON, 10/15/2022 8:59 AM EST HISTORY: Urolithiasis COMPARISON: 04/07/2022 TECHNIQUE: CT scan of the abdomen and pelvis was performed without IV contrast. CT dose reduction technique was used, including Automated Exposure Control. ABDOMEN/PELVIS FINDINGS: Lower Chest: Unremarkable. Liver: Normal nonenhanced appearance and contour. Biliary/Gallbladder: Prior cholecystectomy. Pancreas: There is a stable cystic lesion in the tail the pancreas measuring 7.8 mm, as seen on previous exams. No pancreatic ductal dilatation identified. Spleen: Unremarkable. Adrenal Glands: Unremarkable. Kidneys: Multiple bilateral renal cysts are present. There is a tiny fat-containing lesion in the upper pole the right kidney measuring 6.8 mm, consistent with an angiomyolipoma. No renal calculus or hydronephrosis identified. Gastrointestinal/Ivonne toneum: No acute abnormality. Mild colonic diverticulosis is present. The appendix is not discretely visualized. No free air or free fluid. Vascular: There are moderate scattered atherosclerotic calcifications present. Lymph Nodes: No enlarged lymph nodes by CT size criteria. Pelvic Organs: Unremarkable. Bladder: Unremarkable. Bones: No acute osseous abnormality. There is a left-sided total hip arthroplasty. A sclerotic lesion in the right sacrum likely is a bone island. There are extensive multilevel degenerative changes present in the visualized spine, greatest at L4-L5 where there is a prominent disc osteophyte complex and facet hypertrophy causing severe spinal canal stenosis and severe bilateral neural foraminal stenosis. Soft tissues: Unremarkable. IMPRESSION: 1. No renal calculus or hydronephrosis identified. 2. Multiple bilateral renal cysts. 3. Small angiomyolipoma in the upper pole the right kidney. 4. Numerous chronic findings in the body of the report. Electronically authenticated by: YESICA ZAYAS Date: 2022-10-15 09:34 Normal [facility] CREATININEon 06-08-2022 Creatinine [Mass/Vol] 1.22 mg/dL Critically high 0.55-1.02 [facility] Comment on above: Performed By: #### C BRITTANI ####[facility] [id number] [address]Dr. Pammissy Prudencio EGFR-AF [place] 51 mL/min/1.73m2 Critically low >=60 [facility] Comment on above: Performed By: #### C BRITTANI ####[facility] [id number] [address]Dr. Errol Flannery EGFR-NON AF [place] 42 mL/min/1.73m2 Critically low >=60 [facility] Comment on above: Performed By: #### C BRITTANI ####[facility] [id number] [address]Dr. Errol Flannery CTA CHEST WO W CONon 022 CTA CHEST WO W CON EXAMINATION: CTA CHEST WO W CON HISTORY: Dilatation of aorta COMPARISON: Upper GI study 05/21/2022, CT abdomen pelvis 11/13/2016 TECHNIQUE: Multi-planar CT images were created with IV contrast. Axial, Coronal, and Sagittal images. Dose reduction techniques were achieved by using automated exposure control and/or adjustment of mA and/or kV according to patient size and/or use of iterative reconstruction technique. 3-D reconstruction was performed on a separate workstation. FINDINGS: VASCULATURE: No pulmonary embolism or abnormal opacity. LUNGS: 9 mm geographic shaped nodule within the anterior lateral left costophrenic angle, present since at least 11/13/2016. PLEURA: No mass, effusion, or pneumothorax. PAOLA: No mass or adenopathy. MEDIASTINUM: No mass or adenopathy. CARDIAC: No enlargement or pericardial effusion. AORTA: No aneurysm or dissection. Maximum diameter of ascending aorta is 3.4 cm; maximum diameter of arch is 3.2 cm. CHEST WALL: No mass or axillary adenopathy. BONES: No bone lesion or fracture. LIMITED ABDOMEN: Small right renal cyst. Mild/moderate renal cortical thinning bilaterally.. Limited images of the upper abdomen. OTHER: Negative. IMPRESSION: 1. No aneurysm or abnormal dilation of the aorta. 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 2. Stable, chronic nodule within the left lateral costophrenic angle consistent with benign etiology/scarring. Electronically authenticated by: ALEXANDER DUMONT Date: 2022-06-08 10:18 Normal [facility] CARDIAC ZECHARIAH 3-6on 2 CK [Catalytic activity/Vol] 35 U/L Normal 26-192 [facility] Comment on above: Performed By: #### L ACT #### [facility] [address] [address] [address] Errol Flannery CK.MB [Mass/Vol] 1.42 ng/mL Normal <=3.60 [facility] Comment on above: Performed By: #### L ACT #### [facility] [address] [address] [address] Errol Flannery HSTROP 6.4 pg/mL Normal 4.0-51.3 [facility] Comment on above: Result Comment: CUT- OFF POINTS HAVE BEEN ESTABLISHED BASED ON THE FOURTH UNIVERSAL DEFINITIONS OF MYOCARDIAL INFARCTION. THE UPPER REFERENCE LIMIT (URL) OF TROPONIN, DEFINED THE 99TH PERCENTILE OF cTnI DISTRIBUTION IN A REFERENCE POPULATION, HAS BEEN CONFIRMED THE DECISION THRESHOLD FOR [place] DIAGNOSIS. Performed By: #### L ACT #### [facility] [address] [place], [place] [address] Dr. Errol Flannery CARDIAC ZECHARIAH ADMITon 022 CK [Catalytic activity/Vol] 41 U/L Normal 26-192 [facility] Comment on above: Performed By: #### C MADM, BMP ####[facility] [address] [place], [place] [address]ZqDr. Errol Flannery CK.MB [Mass/Vol] 1.36 ng/mL Normal <=3.60 The [facility] Comment on above: Performed By: #### C MADM, BMP ####[facility] [address] [place] [id number] Flannery HSTROP 5.8 pg/mL Normal 4.0-51.3 The [facility] Comment on above: Result Comment: CUT- OFF POINTS HAVE BEEN ESTABLISHED BASED ON THE FOURTH UNIVERSAL DEFINITIONS OF MYOCARDIAL INFARCTION. THE UPPER REFERENCE LIMIT (URL) OF TROPONIN, DEFINED THE 99TH PERCENTILE OF cTnI DISTRIBUTION IN A REFERENCE POPULATION, HAS BEEN CONFIRMED THE DECISION THRESHOLD FOR [place] DIAGNOSIS. Performed By: #### C MADM, BMP ####[facility] [address] [place] [id number]. Errol Flannery RICHELLE 65 ng/mL Normal 9-82 [facility] Comment on above: Performed By: #### C ALICIA, BMP ####[facility] [address] [place] [id number]. Errol Flannery CBC AUTO DIFFon 04-29-2022 BASO # 0.0 103/ul Normal 0.0-0.1 [facility] Comment on above: Performed By: #### L ACT #### [facility] [address] [place] [address] [address] Errol Flannery Basophils/100 WBC (Bld) 0.2 % Normal 0.2-2.0 [facility] Comment on above: Performed By: #### L ACT #### [facility] [address] [place] [address] [address] Errol Flannery EO # 0.0 103/ul Normal 0.0-0.7 [facility] Comment on above: Performed By: #### L ACT #### [facility] [address] [place] [address] [address] Errol Flannery Eosinophils/100 WBC (Bld) 0.1 % Critically low 0.9-7.0 [facility] Comment on above: Performed By: #### L ACT #### [facility] [address] [place] [address] [address] Errol Flannery Erythrocyte distribution width (RBC) [Ratio] 13.9 % Normal 11.0-15.0 [facility] Comment on above: Performed By: #### L ACT #### [facility] [address] [place] [address] [address] Errol Flannery Hematocrit (Bld) [Volume fraction] 40.9 % Normal 36.0-48.0 [facility] Comment on above: Performed By: #### L ACT #### [facility] [address] [place] [address] [address] Errol Flannery Hemoglobin (Bld) [Mass/Vol] 13.3 g/dL Normal 12.0-16.0 [facility] Comment on above: Performed By: #### L ACT #### [facility] [address] [place] [address] Dr. Errol Flannery IG # 0.02 10e3/ul Normal 0.00-0.03 [facility] Comment on above: Performed By: #### L ACT #### [facility] [address] [place] [address] Dr. Errol Flannery IG % 0.2 % Normal 0.0-0.5 [facility] Comment on above: Performed By: #### L ACT #### [facility] [address] [place] [address] Dr. Errol Flannery LYMPH # 0.9 103/ul Critically low 1.2-3.8 [facility] Comment on above: Performed By: #### L ACT #### [facility] [address] [place] [address] [address] Errol Flannery Lymphocytes/100 WBC (Bld) 9.2 % Critically low 20.5-60.0 [facility] Comment on above: Performed By: #### L ACT #### [facility] [address] [place] [address] [address] Errol Flannery MANUAL DIFF REQ NO Normal [facility] Comment on above: Performed By: #### L ACT #### [facility] [address] [place] [address] Dr. Errol Flannery MCH (RBC) [Entitic mass] 30.6 pg Normal 26.7-34.0 [facility] Comment on above: Performed By: #### L ACT #### [facility] [address] [place] [address] [address] Errol Flannery MCHC (RBC) [Mass/Vol] 32.5 g/dL Normal 29.9-35.2 [facility] Comment on above: Performed By: #### L ACT #### [facility] [address] [place] [address] [address] Errol Flannery MCV (RBC) [Entitic vol] 94.0 fL Normal 81.0-99.0 [facility] Comment on above: Performed By: #### L ACT #### [facility] [address] [place] [address] [address] Errol Flannery MONO # 0.6 103/ul Normal 0.3-0.8 [facility] Comment on above: Performed By: #### L ACT #### [facility] [address] [place] [address] Dr. Errol Flannery Monocytes/100 WBC (Bld) 6.8 % Normal 1.7-12.0 [facility] Comment on above: Performed By: #### L ACT #### [facility] [address] [place] [address] [address] Errol Flannery NEUT # 7.9 103/ul Critically high 1.4-6.5 [facility] Comment on above: Performed By: #### L ACT #### [facility] [address] [place] [address] [address] Errol Flannery Neutrophils/100 WBC (Bld) 83.5 % Critically high 43.0-75.0 [facility] Comment on above: Performed By: #### L ACT #### [facility] [address] [place] [address] [address] Errol Flannery Platelet mean volume (Bld) [Entitic vol] 9.5 fL Normal 9.5-13.5 [facility] Comment on above: Performed By: #### L ACT #### [facility] [address] [place] [address] [address] Errol Flannery PLT 244 103/ul Normal 150-450 [facility] Comment on above: Performed By: #### L ACT #### [facility] [address] [place] [address] Dr. Errol Flannery RBC 4.35 106/ul Normal 4.20-5.40 [facility] Comment on above: Performed By: #### L ACT #### [facility] [address] [place] [address] Dr. Errol Flannery WBC 9.4 103/ul Normal 4.0-11.0 [facility] Comment on above: Performed By: #### L ACT #### [facility] [address] [place] [address] Dr. Errol Flannery ER URINE PROFILEon 2 Bilirubin Ql (U) Negative Normal NEGATIVE [facility] Comment on above: Performed By: #### L ACT #### [facility] [address] [place] [address] Dr. Errol Flannery Clarity (U) CLEAR Normal CLEAR [facility] Comment on above: Performed By: #### L ACT #### [facility] [address] [place] [address] Dr. Errol Flannery Color (U) LT. YELLOW Normal YELLOW [facility] Comment on above: Performed By: #### L ACT #### [facility] [address] [place] [address] Dr. Errol JAMES A micrscopic examination will be performed if indicated. Normal [facility] Comment on above: Performed By: #### L ACT #### [facility] [address] [place] [address] Dr. Errol Flannery Glucose Ql (U) Negative Normal NEGATIVE [facility] Comment on above: Performed By: #### L ACT #### [facility] [address] [place] [address] Dr. Errol Flannery Hemoglobin Ql (U) Negative Normal NEGATIVE [facility] Comment on above: Performed By: #### L ACT #### [facility] [address] [place] [address] Dr. Errol Flannery Ketones Ql (U) TRACE Abnormal NEGATIVE [facility] Comment on above: Performed By: #### L ACT #### [facility] [address] [place] [address] Dr. Errol Flannery LEUKOCYTES MODERATE Abnormal NEGATIVE [facility] Comment on above: Performed By: #### L ACT #### [facility] [address] [place] [address] Dr. Errol Flannery Nitrite Ql (U) Negative Normal NEGATIVE [facility] Comment on above: Performed By: #### L ACT #### [facility] [address] [place] [address] Dr. Errol Flannery pH (U) 6.5 [pH] Normal 5-9 [facility] Comment on above: Performed By: #### L ACT #### [facility] [address] [place] [address] Dr. Errol Flannery SPEC GRAVITY 1.010 Normal 1.005-<=1.025 [facility] Comment on above: Performed By: #### L ACT #### [facility] [address] [place] [address] Dr. Errol Flannery UA PROTEIN Negative Normal NEGATIVE/ TRACE [facility] Comment on above: Performed By: #### L ACT #### [facility] [address] [place] [address] Dr. Errol Flannery UR MICRO IND INDICATED Normal [facility] Comment on above: Performed By: #### L ACT #### [facility] [address] [place] [address] Dr. Errol Flannery Urobilinogen Qn (U) 0.2 {Jordyn'U}/dL Normal 0.2 - 1. 0 [facility] Comment on above: Performed By: #### L ACT #### [facility] [address] [place] [address] Dr. Errol Flannery LACTATE/LACTIC ACIDon 2021 Lactate [Moles/Vol] 0.8 mmol/L Normal 0.4-1.9 The [facility] Comment on above: Performed By: #### L ACT #### [facility] [address] [place] [address] Dr. Errol Flannery Lactate [Moles/Vol] 0.9 mmol/L Normal 0.4-1.9 [facility] Comment on above: Performed By: #### L ACT ####[facility] [address] [place] [address]Dr. Errol Flannery PROF CHEM 8 (BAS METB)on Anion gap [Moles/Vol] 11.5 mmol/L Normal [facility] Comment on above: Performed By: #### C ALICIA, BMP ####[facility] [address] [place], [place] [address]Dr. Errol Flannery Calcium [Mass/Vol] 8.9 mg/dL Normal 8.5-10.1 [facility] Comment on above: Performed By: #### C ALICIA, BMP ####[facility] [address] [place], [place] [address]Dr. Errol Flannery Chloride [Moles/Vol] 104 mmol/L Normal 98-107 [facility] Comment on above: Performed By: #### C ALICIA, BMP ####[facility] [address] [place], [place] [address]Dr. Errol Flannery CO2 [Moles/Vol] 28.3 mmol/L Normal 21.0-32.0 [facility] Comment on above: Performed By: #### Audra VARGAS, BMP ####[facility] [address] [place], [place] [address]Dr. Errol Flannery Creatinine [Mass/Vol] 1.04 mg/dL Critically high 0.55-1.02 [facility] Comment on above: Performed By: #### Audra VARGAS, BMP ####[facility] [address] [place], [place] [address]Dr. Errol Flannery EGFR-AF [place] >60 Normal >=60 [facility] Comment on above: Performed By: #### C ALICIA, BMP ####[facility] [address] [place], [place] [address]Dr. Errol Flannery EGFR-NON AF [place] 50 mL/min/1.73m2 Critically low >=60 [facility] Comment on above: Performed By: #### Audra VARGAS, BMP ####[facility] [address] [place] [address]Dr. Errol Flannery Glucose [Mass/Vol] 131 mg/dL Critically high 74-106 T [facility] Comment on above: Performed By: #### C ALICIA, BMP ####[facility] [address] [place] [address]Dr. Errol Flannery Potassium [Moles/Vol] 3.8 mmol/L Normal 3.5-5.1 [facility] Comment on above: Performed By: #### C ALICIA, BMP ####[facility] [address] [place] [address]Dr. Errol Flannery Sodium [Moles/Vol] 140 mmol/L Normal 136-145 [facility] Comment on above: Performed By: #### C ALICIA, BMP ####[facility] [address] [place], [place] [address]Dr. Errol Flannery Urea nitrogen [Mass/Vol] 16.0 mg/dL Normal 7.0-18.0 [facility] Comment on above: Performed By: #### C ALICIA, BMP ####[facility] [address] [place] [address]Dr. Errol Flannery Urea nitrogen/Creatinine [Mass ratio] 15.4 mg/mg Normal [facility] Comment on above: Performed By: #### C ALICIA, BMP ####[facility] [address] [place] [address]Dr. Errol Flannery URINE MICROSCOPIC ONLYon BACTERIA TRACE Abnormal NONE SEEN [facility] Comment on above: Performed By: #### L ACT #### [facility] [address] [place] [address] Dr. Errol Flannery Bacteria identified Cx Nom (U) NOT INDICATED Normal [facility] Comment on above: Performed By: #### L ACT #### [facility] [address] [place] [address] Dr. Errol Flannery CAST NONE SEEN Normal NONE SEEN [facility] Comment on above: Performed By: #### L ACT #### [facility] [address] [place] [address] Dr. Errol Flannery Crystals LM Nom (Urine sed) NONE SEEN Normal NONE SEEN [facility] Comment on above: Performed By: #### L ACT #### [facility] [address] [place] [address] [address] Errol Flannery Epithelial cells LM Ql (Urine sed) FEW Abnormal NONE SEEN /RARE [facility] Comment on above: Performed By: #### L ACT #### [facility] [address] [place] [address] [address] Errol Flannery MUCOUS NONE SEEN Normal NONE SEEN [facility] Comment on above: Performed By: #### L ACT #### [facility] [address] [place] [address] [address] Errol Flannery RBC 0-2 Normal 0-2 [facility] Comment on above: Performed By: #### L ACT #### [facility] [address] [place] [address] [address] Errol Flannery WBC 2-5 Abnormal NONE SEEN [facility] Comment on above: Performed By: #### L ACT #### [facility] [address] [place] [address] Dr. Errol Flannery XR CHEST 1 Von 04-29-2022 XR CHEST 1 V EXAMINATION: XR CHES T 1 V HISTORY: Patient vomited COMPARISON: Chest x-ray 04/06/2022 TECHNIQUE: Portable chest FINDINGS: The lung parenchyma is free of consolidation or infiltrate. No pneumothorax or pleural effusion. The cardiac, mediastinal and hilar contours are normal. The visualized osseous structures exhibit no gross acute abnormality. Degenerative changes of both acromioclavicular joints. IMPRESSION: No acute cardiopulmonary abnormality. Electronically authenticated by: GENO LAU Date: 2022-04-28 23:01 Normal [facility] CBC AUTO DIFFon 04-12-2022 BASO # 0.0 103/ul Normal 0.0-0.1 [facility] Comment on above: Performed By: #### C BC ####[facility] [address] [place] [address]Dr. Errol Flannery Basophils/100 WBC (Bld) 0.5 % Normal 0.2-2.0 [facility] Comment on above: Performed By: #### C BC ####[facility] [address] [place] [id number]. Errol Flannery EO # 0.1 103/ul Normal 0.0-0.7 [facility] Comment on above: Performed By: #### C BC ####[facility] [address] [place] [address]Dr. Errol Flannery Eosinophils/100 WBC (Bld) 1.9 % Normal 0.9-7.0 [facility] Comment on above: Performed By: #### C BC ####[facility] [address] [place], [place] [address]Dr. Errol Flannery Erythrocyte distribution width (RBC) [Ratio] 14.1 % Normal 11.0-15.0 [facility] Comment on above: Performed By: #### C BC ####[facility] [address] [place], [place] [address]Dr. Errol Flannery Hematocrit (Bld) [Volume fraction] 35.1 % Critically low 36.0-48.0 [facility] Comment on above: Performed By: #### C BC ####[facility] [address] [place] [address]Dr. Errol Flannery Hemoglobin (Bld) [Mass/Vol] 11.5 g/dL Critically low 12.0-16.0 [facility] Comment on above: Performed By: #### C BC ####[facility] [address] [place], [place] [address]Dr. Errol Flannery IG # 0.02 10e3/ul Normal 0.00-0.03 [facility] Comment on above: Performed By: #### C BC ####[facility] [address] [place] [address]Dr. Errol Flannery IG % 0.3 % Normal 0.0-0.5 [facility] Comment on above: Performed By: #### C BC ####[facility] [address] [place], [place] [address]Dr. Errol Flannery LYMPH # 1.4 103/ul Normal 1.2-3.8 [facility] Comment on above: Performed By: #### C BC ####[facility] [address] [place] [id number]. Errol Flannery Lymphocytes/100 WBC (Bld) 24.2 % Normal 20.5-60.0 [facility] Comment on above: Performed By: #### C BC ####[facility] [address] [place] [id number]. Errol Prudencio MANUAL DIFF REQ NO Normal The [facility] Comment on above: Performed By: #### C BC ####[facility] [address] [place] [id number]. Errol Prudencio MCH (RBC) [Entitic mass] 30.6 pg Normal 26.7-34.0 [facility] Comment on above: Performed By: #### C BC ####[facility] [address] [place], [place] [address]Dr. Errol Prudencio MCHC (RBC) [Mass/Vol] 32.8 g/dL Normal 29.9-35.2 [facility] Comment on above: Performed By: #### C BC ####[facility] [address] [place] [id number]. Errol Flannery MCV (RBC) [Entitic vol] 93.4 fL Normal 81.0-99.0 [facility] Comment on above: Performed By: #### C BC ####[facility] [address] [place] [address]Dr. Pammissy Prudencio MONO # 0.6 103/ul Normal 0.3-0.8 [facility] Comment on above: Performed By: #### C BC ####[facility] [address] [place], [place] [address]Dr. Errol Prudencio Monocytes/100 WBC (Bld) 10.0 % Normal 1.7-12.0 [facility] Comment on above: Performed By: #### C BC ####[facility] [address] [place], [place] [address]Dr. Errol Flannery NEUT # 3.7 103/ul Normal 1.4-6.5 [facility] Comment on above: Performed By: #### C BC ####[facility] [address] [place] [id number]. Errol Flannery Neutrophils/100 WBC (Bld) 63.1 % Normal 43.0-75.0 [facility] Comment on above: Performed By: #### C BC ####[facility] [address] [place] [id number]. Errol Flannery Platelet mean volume (Bld) [Entitic vol] 9.8 fL Normal 9.5-13.5 [facility] Comment on above: Performed By: #### C BC ####[facility] [address] [place] [id number]. Errol Flannery PLT 237 103/ul Normal 150-450 [facility] Comment on above: Performed By: #### C BC ####[facility] [address] [place] [id number]. Errol Flannery RBC 3.76 106/ul Critically low 4.20-5.40 [facility] Comment on above: Performed By: #### C BC ####[facility] [address] [place] [id number]. Errol Flannery WBC 5.8 103/ul Normal 4.0-11.0 [facility] Comment on above: Performed By: #### C BC ####[facility] [address] [place] [id number] Flannery PROF 14(COMP METB)on 022 Albumin [Mass/Vol] 2.2 g/dL Critically low 3.4-5.0 [facility] Comment on above: Performed By: #### L ACT #### [facility] [address] [place] [address] [address] Errol Flannery Albumin/Globulin [Mass ratio] 0.7 {ratio} Normal [facility] Comment on above: Performed By: #### L ACT #### [facility] [address] [place] [address] [address] Errol Flannery ALP [Catalytic activity/Vol] 65 U/L Normal 46-116 [facility] Comment on above: Performed By: #### L ACT #### [facility] [address] [place] [address] [address] Errol Flannery ALT [Catalytic activity/Vol] 32 U/L Normal 14-59 [facility] Comment on above: Performed By: #### L ACT #### [facility] [address] [place] [address] [address] Errol Flannery Anion gap [Moles/Vol] 8.6 mmol/L Normal [facility] Comment on above: Performed By: #### L ACT #### [facility] [address] [place] [address] [address] Errol Flannery AST [Catalytic activity/Vol] 21 U/L Normal 15-37 [facility] Comment on above: Performed By: #### L ACT #### [facility] [address] [place] [address] Dr. Errol Flannery Bilirubin [Mass/Vol] 0.2 mg/dL Normal 0.2-1.0 [facility] Comment on above: Performed By: #### L ACT #### [facility] [address] [place] [address] Dr. Errol Flannery Calcium [Mass/Vol] 8.5 mg/dL Normal 8.5-10.1 [facility] Comment on above: Performed By: #### L ACT #### [facility] [address] [place] [address] Dr. Errol Flannery Chloride [Moles/Vol] 109 mmol/L Critically high 98-107 [facility] Comment on above: Performed By: #### L ACT #### [facility] [address] [place] [address] [address] Errol Flannery CO2 [Moles/Vol] 29.0 mmol/L Normal 21.0-32.0 [facility] Comment on above: Performed By: #### L ACT #### [facility] [address] [place] [address] [address] Errol Flannery Creatinine [Mass/Vol] 1.01 mg/dL Normal 0.55-1.02 [facility] Comment on above: Performed By: #### L ACT #### [facility] [address] [place] [address] [address] Errol Flannery EGFR-AF [place] >60 Normal >=60 [facility] Comment on above: Performed By: #### L ACT #### [facility] [address] [place] [address] [address] Errol Flannery EGFR-NON AF [place] 52 mL/min/1.73m2 Critically low >=60 [facility] Comment on above: Performed By: #### L ACT #### [facility] [address] [place] [address] [address] Errol Flannery Globulin (S) [Mass/Vol] 3.1 g/dL Normal [facility] Comment on above: Performed By: #### L ACT #### [facility] [address] [place] [address] [address] Errol Flannery Glucose [Mass/Vol] 98 mg/dL Normal 74-106 [facility] Comment on above: Performed By: #### L ACT #### [facility] [address] [place] [address] [address] Errol Flannery Potassium [Moles/Vol] 4.6 mmol/L Normal 3.5-5.1 [facility] Comment on above: Performed By: #### L ACT #### [facility] [facility] [address] [address] [address] Errol Flannery Protein [Mass/Vol] 5.3 g/dL Critically low 6.4-8.2 Th [facility] Comment on above: Performed By: #### L ACT #### [facility] [address] [address] [address] Errol Flannery Sodium [Moles/Vol] 142 mmol/L Normal 136-145 [facility] Comment on above: Performed By: #### L ACT #### [facility] [address] [address] [address] Errol Flannery Urea nitrogen [Mass/Vol] 16.0 mg/dL Normal 7.0-18.0 [facility] Comment on above: Performed By: #### L ACT #### [facility] [address] [address] [address] Errol Flannery Urea nitrogen/Creatinine [Mass ratio] 15.8 mg/mg Normal The [facility] Comment on above: Performed By: #### L ACT #### [facility] [address] [address] [address] Errol Flannery CBC AUTO DIFFon 04-11-2022 BASO # 0.0 103/ul Normal 0.0-0.1 [facility] Comment on above: Performed By: #### C BC ####[facility] [address] [address]DrElana Flannery Basophils/100 WBC (Bld) 0.6 % Normal 0.2-2.0 The [facility] Comment on above: Performed By: #### C BC ####[facility] R[address] [place], [place] [address]Dr. Errol Flannery EO # 0.1 103/ul Normal 0.0-0.7 The [facility] Comment on above: Performed By: #### C BC ####[facility] [address] [place], [place] [address]Dr. Errol Flannery Eosinophils/100 WBC (Bld) 1.8 % Normal 0.9-7.0 The [facility] Comment on above: Performed By: #### C BC ####[facility] Huhmfwandr[address] [place], [place] [address]Dr. Errol Flannery Erythrocyte distribution width (RBC) [Ratio] 14.0 % Normal 11.0-15.0 The [facility] Comment on above: Performed By: #### C BC ####[facility] E[address] [place], [place] [address]DrElana Flannery Hematocrit (Bld) [Volume fraction] 34.5 % Critically low 36.0-48.0 The [facility] Comment on above: Performed By: #### C BC ####[facility] [address] [place], [place] [address]DrElana Flannery Hemoglobin (Bld) [Mass/Vol] 11.1 g/dL Critically low 12.0-16.0 The [facility] Comment on above: Performed By: #### C BC ####[facility] [address] [place], [place] [id number]. Errol Flannery IG # 0.02 10e3/ul Normal 0.00-0.03 The [facility] Comment on above: Performed By: #### C BC ####[facility] [address] [address]Dr. Errol Flannery IG % 0.3 % Normal 0.0-0.5 The [facility] Comment on above: Performed By: #### C BC ####[facility] [address] [address]DrElana Flannery LYMPH # 1.6 103/ul Normal 1.2-3.8 The [facility] Comment on above: Performed By: #### C BC ####[facility] [address] [place], [place] [address]DrElana Flannery Lymphocytes/100 WBC (Bld) 21.9 % Normal 20.5-60.0 The [facility] Comment on above: Performed By: #### C BC ####[facility] K[address]joixte[address] [place], [place] [address]DrElana Flannery MANUAL DIFF REQ NO Normal [facility] Comment on above: Performed By: #### C BC ####[facility] [address] [place], [place] [address]DrElana Flannery MCH (RBC) [Entitic mass] 30.1 pg Normal 26.7-34.0 The [facility] Comment on above: Performed By: #### C BC ####[facility] Faynradeav[address] [place], [place] [address]DrElana Flannery MCHC (RBC) [Mass/Vol] 32.2 g/dL Normal 29.9-35.2 The [facility] Comment on above: Performed By: #### C BC ####[facility] T[address] [place], [place] [address]DrElana Flannery MCV (RBC) [Entitic vol] 93.5 fL Normal 81.0-99.0 The [facility] Comment on above: Performed By: #### C BC ####[facility] Diegywticl[address] [place], [place] [address]DrElana Flannery MONO # 0.7 103/ul Normal 0.3-0.8 The [facility] Comment on above: Performed By: #### C BC ####[facility] [address] [id number]. Errol Flannery Monocytes/100 WBC (Bld) 9.4 % Normal 1.7-12.0 The [facility] Comment on above: Performed By: #### C BC ####[facility] [address] [address]Dr. Errol Flannery NEUT # 4.8 103/ul Normal 1.4-6.5 The [facility] Comment on above: Performed By: #### C BC ####[facility] [address] [address]Dr. Errol Flannery Neutrophils/100 WBC (Bld) 66.0 % Normal 43.0-75.0 The [facility] Comment on above: Performed By: #### C BC ####[facility] [address] [address]Dr. Errol Flannery Platelet mean volume (Bld) [Entitic vol] 9.2 fL Critically low 9.5-13.5 The [facility] Comment on above: Performed By: #### C BC ####[facility] [address] [address]Dr. Errol Flannery PLT 240 103/ul Normal 150-450 The [facility] Comment on above: Performed By: #### C BC ####[facility] [address] [id number]. Errol Flannery RBC 3.69 106/ul Critically low 4.20-5.40 The [facility] Comment on above: Performed By: #### C BC ####[facility] [address] [id number]. Errol Flannery WBC 7.3 103/ul Normal 4.0-11.0 The [facility] Comment on above: Performed By: #### C BC ####[facility] A[address]agrsvhnu[address] [place], [place] [address]DrElana Errol Flannery GI PANEL (PCR)on 04-11-2022 Adenovirus F 40/41 Not detected Normal NOT DETECTED [facility] Comment on above: Performed By: #### G IPANEL ####[facility] Qvwlrqkaf[address] [place], [place] [address]Dr. Errol Flannery Astrovirus Not detected Normal NOT DETECTED The [facility] Comment on above: Performed By: #### G IPANEL ####[facility] [address]phq[address] [place], [place] [address]Dr. Errol Flannery C. Diff toxin A/B Detected Critically abnormal NOT DETECTED The [facility] Comment on above: Performed By: #### G IPANEL ####[facility] Cr[address]iq[address]kx[address] [place], [place] [address]Dr. Errol Flannery Campylobacter Not detected Normal NOT DETECTED The [facility] Comment on above: Performed By: #### G IPANEL ####[facility] M[address]ybwitoz[address] [place], [place] [address]Dr. Errol Flannery Cryptosporidium Not detected Normal NOT DETECTED The [facility] Comment on above: Performed By: #### G IPANEL ####[facility] [address]xq[address] [place], [place] [address]Dr. Errol Flannery Cyclos. Cayetanensis Not detected Normal NOT DETECTED The [facility] Comment on above: Performed By: #### G IPANEL ####[facility] Brtdsaebyw[address] [place], [place] [address]Dr. Errol Flannery E. Coli O157 Not Applicable Normal Not Applicable The [facility] Comment on above: Performed By: #### G IPANEL ####[facility] Dogkkqmnzu[address] [place], [place] [address]Dr. Errol Flannery E. histolytica Not detected Normal NOT DETECTED The [facility] Comment on above: Performed By: #### G IPANEL ####[facility] Ozjjddlysk[address] [place], [place] [address]Dr. Errol Flannery EAEC Not detected Normal NOT DETECTED The [facility] Comment on above: Performed By: #### G IPANEL ####[facility] G[address]fos[address] [place], [place] [address]Dr. Errol Flannery EIEC Not detected Normal NOT DETECTED The [facility] Comment on above: Performed By: #### G IPANEL ####[facility] [address] [address]Dr. Errol Flannery EPEC Not detected Normal NOT DETECTED The [facility] Comment on above: Performed By: #### G IPANEL ####[facility] [address] [address]Dr. Errol Flannery ETEC Not detected Normal NOT DETECTED The [facility] Comment on above: Performed By: #### G IPANEL ####[facility] [address] [address]Dr. Errol Flannery G. Lamblia Not detected Normal NOT DETECTED The [facility] Comment on above: Performed By: #### G IPANEL ####[facility] [address]wmojtkq[address] [place], [place] [address]Dr. Errol Flannery GIPANEL CONTROLS PASSED Normal The [facility] Comment on above: Performed By: #### G IPANEL ####[facility] Wksawovcpq[address] [place], [place] [address]Dr. Errol Flannery GIPNL JUNAID HEADER GI PANEL BACTERIA Normal T [facility] Comment on above: Performed By: #### G IPANEL ####[facility] Zicaonecot[address] [place], [place] [address]Dr. Yimissy Flannery GIPNLHD ECOLI GI PANEL DIARRHEAGENIC E.COLI / SHIGELLA Normal The [facility] Comment on above: Performed By: #### G IPANEL ####[facility] [address]jbfjw[address] [place], [place] [address]Dr. Yilan Flannery GIPNLHD INFO SEE BELOW Normal The [facility] Comment on above: Result Comment: EAEC - Enteroaggregative E. Coli EPEC- Enteropathogenic E. Coli ETEC- Enterotoxigenic E. Coli lt/st STEC- Shigella-like toxin-producing E. Coli stx1/stx2 EIEC- Shigella/Enteroinvasive E. Coli Performed By: #### G IPANEL ####[facility] G[address]qnibrwc[address] [place], [place] [address]Dr. Yilan Flannery GIPNLHD PARASITES GI PANEL PARASITES Normal The [facility] Comment on above: Performed By: #### G IPANEL ####[facility] [address] [address]Dr. Errol Flannery GIPNLHD VIRUS GI PANEL VIRUSES Normal The [facility] Comment on above: Performed By: #### G IPANEL ####[facility] [address] [address]Dr. Errol Flannery Norovirus GI/GII Not detected Normal NOT DETECTED The [facility] Comment on above: Performed By: #### G IPANEL ####[facility] N[address]ogs[address]hb[address] [place], [place] [address]Dr. Errol Flannery P. Shigelloides Not detected Normal NOT DETECTED The [facility] Comment on above: Performed By: #### G IPANEL ####[facility] Tptbxqszzb[address] [place], [place] [address]Dr. Errol Flannery Rotavirus A Not detected Normal NOT DETECTED The [facility] Comment on above: Performed By: #### G IPANEL ####[facility] Imsvfpabaz[address] [place], [place] [address]Dr. Errol Flannery Salmonella Not detected Normal NOT DETECTED The [facility] Comment on above: Performed By: #### G IPANEL ####[facility] [address]mzt[address] [place], [place] [address]Dr. Errol Flannery Sapovirus Not detected Normal NOT DETECTED The [facility] Comment on above: Performed By: #### G IPANEL ####[facility] R[address]tt[address]mf[address] [place], [place] [address]Dr. Errol Flannery STEC Not detected Normal NOT DETECTED The [facility] Comment on above: Performed By: #### G IPANEL ####[facility] Pmloutccma[address] [place], [place] [address]Dr. Errol Flannery Vibrio Not detected Normal NOT DETECTED The [facility] Comment on above: Performed By: #### G IPANEL ####[facility] X[address]av[address]gy[address] [place], [place] [address]Dr. Errol Flannery Vibrio Cholera Not detected Normal NOT DETECTED The [facility] Comment on above: Performed By: #### G IPANEL ####[facility] [address] [id number] Flannery Y. Enterocolitica Not detected Normal NOT DETECTED The [facility] Comment on above: Performed By: #### G IPANEL ####[facility] [address] [id number]. Errol Flannery OCC BLD IMMUNOASSAYon 2021 OCCULT BLOOD Positive Abnormal NEGATIVE [facility] Comment on above: Performed By: #### O EDISON ####[facility] [address] [phone]. Errol Flannery PROF 14(COMP METB)on 022 Albumin [Mass/Vol] 2.1 g/dL Critically low 3.4-5.0 Th e [facility] Comment on above: Performed By: #### C BC #### [facility] [address] [place] [address] Dr. Errol Flannery Albumin/Globulin [Mass ratio] 0.7 {ratio} Normal [facility] Comment on above: Performed By: #### C BC #### [facility] [address] [place] [address] Dr. Errol Flannery ALP [Catalytic activity/Vol] 60 U/L Normal 46-116 [facility] Comment on above: Performed By: #### C BC #### [facility] [address] [address] [address] Errol Flannery ALT [Catalytic activity/Vol] 30 U/L Normal 14-59 The [facility] Comment on above: Performed By: #### C BC #### [facility] [address] [address] [address] Errol Flannery Anion gap [Moles/Vol] 8.9 mmol/L Normal [facility] Comment on above: Performed By: #### C BC #### [facility] [address] [address] [address] Errol Flannery AST [Catalytic activity/Vol] 20 U/L Normal 15-37 [facility] Comment on above: Performed By: #### C BC #### [facility] [address] [place] [address] Dr. Errol Flannery Bilirubin [Mass/Vol] 0.3 mg/dL Normal 0.2-1.0 [facility] Comment on above: Performed By: #### C BC #### [facility] [address] [place] [address] Dr. Errol Flannery Calcium [Mass/Vol] 8.2 mg/dL Critically low 8.5-10.1 Th e [facility] Comment on above: Performed By: #### C BC #### [facility] [address] [place] [address] Dr. Errol Flannery Chloride [Moles/Vol] 109 mmol/L Critically high 98-107 [facility] Comment on above: Performed By: #### C BC #### [facility] [address] [place] [address] Dr. Errol Flannery CO2 [Moles/Vol] 27.7 mmol/L Normal 21.0-32.0 [facility] Comment on above: Performed By: #### C BC #### [facility] [address] [place] [address] Dr. Errol Flannery Creatinine [Mass/Vol] 1.03 mg/dL Critically high 0.55-1.02 [facility] Comment on above: Performed By: #### C BC #### [facility] [address] [place] [address] Dr. Errol Flannery EGFR-AF [place] >60 Normal >=60 The [facility] Comment on above: Performed By: #### C BC #### [facility] [address] [place] [address] Dr. Errol Flannery EGFR-NON AF [place] 51 mL/min/1.73m2 Critically low >=60 The [facility] Comment on above: Performed By: #### C BC #### [facility] [address] [place] [address] Dr. Errol Flannery Globulin (S) [Mass/Vol] 3.0 g/dL Normal The [facility] Comment on above: Performed By: #### C BC #### [facility] [address] [place] [address] Dr. Errol Flannery Glucose [Mass/Vol] 91 mg/dL Normal 74-106 [facility] Comment on above: Performed By: #### C BC #### [facility] [address] [place] [address] Dr. Errol Flannery Potassium [Moles/Vol] 3.6 mmol/L Normal 3.5-5.1 [facility] Comment on above: Performed By: #### C BC #### [facility] [address] [place] [address] Dr. Errol Flannery Protein [Mass/Vol] 5.1 g/dL Critically low 6.4-8.2 Th [facility] Comment on above: Performed By: #### C BC #### [facility] [address] [place] [address] Dr. Errol Flannery Sodium [Moles/Vol] 142 mmol/L Normal 136-145 [facility] Comment on above: Performed By: #### C BC #### [facility] [address] [place] [address] Dr. Errol Flannery Urea nitrogen [Mass/Vol] 11.0 mg/dL Normal 7.0-18.0 [facility] Comment on above: Performed By: #### C BC #### [facility] [address] [place] [address] Dr. Errol Flannery Urea nitrogen/Creatinine [Mass ratio] 10.7 mg/mg Normal [facility] Comment on above: Performed By: #### C BC #### [facility] [address] [place] [address] Dr. Errol Flannery CBC AUTO DIFFon 04-10-2022 BASO # 0.0 103/ul Normal 0.0-0.1 [facility] Comment on above: Performed By: #### C BC #### [facility] [address] [place] [address] Dr. Errol Flannery Basophils/100 WBC (Bld) 0.4 % Normal 0.2-2.0 [facility] Comment on above: Performed By: #### C BC #### [facility] [address] [place] [address] Dr. Errol Flannery EO # 0.1 103/ul Normal 0.0-0.7 [facility] Comment on above: Performed By: #### C BC #### [facility] [address] [place] [address] Dr. Errol Flannery Eosinophils/100 WBC (Bld) 2.1 % Normal 0.9-7.0 [facility] Comment on above: Performed By: #### C BC #### [facility] [address] [place] [address] Dr. Errol Flannery Erythrocyte distribution width (RBC) [Ratio] 13.8 % Normal 11.0-15.0 [facility] Comment on above: Performed By: #### C BC #### [facility] [address] [place] [address] Dr. Errol Flannery Hematocrit (Bld) [Volume fraction] 35.9 % Critically low 36.0-48.0 [facility] Comment on above: Performed By: #### C BC #### [facility] [address] [place] [address] Dr. Errol Flannery Hemoglobin (Bld) [Mass/Vol] 11.6 g/dL Critically low 12.0-16.0 [facility] Comment on above: Performed By: #### C BC #### [facility] [address] [place] [address] Dr. Errol Flannery IG # 0.03 10e3/ul Normal 0.00-0.03 [facility] Comment on above: Performed By: #### C BC #### [facility] [address] [place] [address] Dr. Errol Flannery IG % 0.5 % Normal 0.0-0.5 The [facility] Comment on above: Performed By: #### C BC #### [facility] [address] [place] [address] Dr. Errol Flannery LYMPH # 1.2 103/ul Normal 1.2-3.8 [facility] Comment on above: Performed By: #### C BC #### [facility] [address] [place] [address] Dr. Errol Flannery Lymphocytes/100 WBC (Bld) 21.7 % Normal 20.5-60.0 [facility] Comment on above: Performed By: #### C BC #### [facility] [address] [place] [address] Dr. Errol Flannery MANUAL DIFF REQ NO Normal [facility] Comment on above: Performed By: #### C BC #### [facility] [address] [place] [address] Dr. Errol Flannery MCH (RBC) [Entitic mass] 30.0 pg Normal 26.7-34.0 [facility] Comment on above: Performed By: #### C BC #### [facility] [address] [place] [address] Dr. Errol Flannery MCHC (RBC) [Mass/Vol] 32.3 g/dL Normal 29.9-35.2 [facility] Comment on above: Performed By: #### C BC #### [facility] [address] [place] [address] Dr. Errol Flannery MCV (RBC) [Entitic vol] 92.8 fL Normal 81.0-99.0 [facility] Comment on above: Performed By: #### C BC #### [facility] [address] [place] [address] Dr. Errol Flannery MONO # 0.6 103/ul Normal 0.3-0.8 [facility] Comment on above: Performed By: #### C BC #### [facility] [address] [place] [address] Dr. Errol Flannery Monocytes/100 WBC (Bld) 10.5 % Normal 1.7-12.0 [facility] Comment on above: Performed By: #### C BC #### [facility] [address] [place] [address] Dr. Errol Flannery NEUT # 3.6 103/ul Normal 1.4-6.5 [facility] Comment on above: Performed By: #### C BC #### [facility] [address] [place] [address] Dr. Errol Flannery Neutrophils/100 WBC (Bld) 64.8 % Normal 43.0-75.0 [facility] Comment on above: Performed By: #### C BC #### [facility] [address] [address] [address] Errol Flannery Platelet mean volume (Bld) [Entitic vol] 9.0 fL Critically low 9.5-13.5 [facility] Comment on above: Performed By: #### C BC #### [facility] [address] [address] [address] Errol Flannery PLT 250 103/ul Normal 150-450 [facility] Comment on above: Performed By: #### C BC #### [facility] [address] [address] [address] Errol Flannery RBC 3.87 106/ul Critically low 4.20-5.40 [facility] Comment on above: Performed By: #### C BC #### [facility] [address] [place] [address] Dr. Errol Flannery WBC 5.6 103/ul Normal 4.0-11.0 [facility] Comment on above: Performed By: #### C BC #### [facility] [address] [place] [address] Dr. Errol Flannery PROF 14(COMP METB)on 022 Albumin [Mass/Vol] 2.2 g/dL Critically low 3.4-5.0 [facility] Comment on above: Performed By: #### L ACT #### [facility] [address] [place] [address] Dr. Errol Flannery Albumin/Globulin [Mass ratio] 0.8 {ratio} Normal [facility] Comment on above: Performed By: #### L ACT #### [facility] [address] [place] [address] Dr. Errol Flannery ALP [Catalytic activity/Vol] 67 U/L Normal 46-116 [facility] Comment on above: Performed By: #### L ACT #### [facility] [address] [place] [address] Dr. Errol Flannery ALT [Catalytic activity/Vol] 27 U/L Normal 14-59 [facility] Comment on above: Performed By: #### L ACT #### [facility] [address] [address] [address] Errol Flannery Anion gap [Moles/Vol] 8.9 mmol/L Normal [facility] [facility] Comment on above: Performed By: #### L ACT #### [facility] [address] [address] [address] Errol Flannery AST [Catalytic activity/Vol] 18 U/L Normal 15-37 [facility] Comment on above: Performed By: #### L ACT #### [facility] [address] [address] [address] Errol Flannery Bilirubin [Mass/Vol] 0.3 mg/dL Normal 0.2-1.0 [facility] Comment on above: Performed By: #### L ACT #### [facility] [address] [address] [address] Errol Flannery Calcium [Mass/Vol] 8.3 mg/dL Critically low 8.5-10.1 Th [facility] Comment on above: Performed By: #### L ACT #### [facility] [address] [address] [address] Errol Flannery Chloride [Moles/Vol] 110 mmol/L Critically high 98-107 [facility] Comment on above: Performed By: #### L ACT #### [facility] [address] [address] [address] Errol Flannery CO2 [Moles/Vol] 26.6 mmol/L Normal 21.0-32.0 [facility] Comment on above: Performed By: #### L ACT #### [facility] [address] [address] [address] Errol Flannery Creatinine [Mass/Vol] 0.95 mg/dL Normal 0.55-1.02 [facility] Comment on above: Performed By: #### L ACT #### [facility] [address] [address] [address] Errol Flannery EGFR-AF [place] >60 Normal >=60 [facility] Comment on above: Performed By: #### L ACT #### [facility] [address] [address] [address] Errol Flannery EGFR-NON AF [place] 56 mL/min/1.73m2 Critically low >=60 [facility] Comment on above: Performed By: #### L ACT #### [facility] [address] [address] [address] Errol Flannery Globulin (S) [Mass/Vol] 2.9 g/dL Normal [facility] Comment on above: Performed By: #### L ACT #### [facility] [address] [address] [address] Errol Flannery Glucose [Mass/Vol] 93 mg/dL Normal 74-106 [facility] Comment on above: Performed By: #### L ACT #### [facility] [address] [address] [address] Errol Flannery Potassium [Moles/Vol] 3.5 mmol/L Normal 3.5-5.1 [facility] Comment on above: Performed By: #### L ACT #### [facility] [address] [address] [address] Errol Flannery Protein [Mass/Vol] 5.1 g/dL Critically low 6.4-8.2 Th [facility] Comment on above: Performed By: #### L ACT #### [facility] [address] [address] [address] Errol Flannery Sodium [Moles/Vol] 142 mmol/L Normal 136-145 [facility] Comment on above: Performed By: #### L ACT #### [facility] [address] [address] [address] Errol Flannery Urea nitrogen [Mass/Vol] 10.0 mg/dL Normal 7.0-18.0 [facility] Comment on above: Performed By: #### L ACT #### [facility] [address] [address] [address] Errol Flannery Urea nitrogen/Creatinine [Mass ratio] 10.5 mg/mg Normal [facility] Comment on above: Performed By: #### L ACT #### [facility] [address] [address] [address] Errol Flannery CBC AUTO DIFFon 04-09-2022 BASO # 0.0 103/ul Normal 0.0-0.1 [facility] Comment on above: Performed By: #### C BC #### [facility] [address] [place] [address] Dr. Errol Flannery Basophils/100 WBC (Bld) 0.3 % Normal 0.2-2.0 [facility] Comment on above: Performed By: #### C BC #### [facility] [address] [place] [address] Dr. Errol Flannery EO # 0.1 103/ul Normal 0.0-0.7 [facility] Comment on above: Performed By: #### C BC #### [facility] [address] [place] [address] Dr. Errol Flannery Eosinophils/100 WBC (Bld) 1.9 % Normal 0.9-7.0 [facility] Comment on above: Performed By: #### C BC #### [facility] [address] [place] [address] Dr. Errol Flannery Erythrocyte distribution width (RBC) [Ratio] 13.5 % Normal 11.0-15.0 [facility] Comment on above: Performed By: #### C BC #### [facility] [address] [place] [address] Dr. Errol Flannery Hematocrit (Bld) [Volume fraction] 34.8 % Critically low 36.0-48.0 [facility] Comment on above: Performed By: #### C BC #### [facility] [address] [place] [address] Dr. Errol Flannery Hemoglobin (Bld) [Mass/Vol] 11.3 g/dL Critically low 12.0-16.0 [facility] Comment on above: Performed By: #### C BC #### [facility] [address] [place] [address] Dr. Errol Flannery IG # 0.02 10e3/ul Normal 0.00-0.03 [facility] Comment on above: Performed By: #### C BC #### [facility] [address] [place] [address] Dr. Errol Flannery IG % 0.3 % Normal 0.0-0.5 [facility] Comment on above: Performed By: #### C BC #### [facility] [address] [place] [address] Dr. Errol Flannery LYMPH # 1.4 103/ul Normal 1.2-3.8 [facility] Comment on above: Performed By: #### C BC #### [facility] [address] [place] [address] Dr. Errol Flannery Lymphocytes/100 WBC (Bld) 23.8 % Normal 20.5-60.0 [facility] Comment on above: Performed By: #### C BC #### [facility] [address] [place] [address] Dr. Errol Flannery MANUAL DIFF REQ NO Normal [facility] Comment on above: Performed By: #### C BC #### [facility] [address] [place] [address] Dr. Errol Flannery MCH (RBC) [Entitic mass] 30.4 pg Normal 26.7-34.0 [facility] Comment on above: Performed By: #### C BC #### [facility] [address] [place] [address] Dr. Errol Flannery MCHC (RBC) [Mass/Vol] 32.5 g/dL Normal 29.9-35.2 [facility] Comment on above: Performed By: #### C BC #### [facility] [address] [place] [address] Dr. Errol Flannery MCV (RBC) [Entitic vol] 93.5 fL Normal 81.0-99.0 [facility] Comment on above: Performed By: #### C BC #### [facility] [address] [place] [address] Dr. Errol Flannery MONO # 0.6 103/ul Normal 0.3-0.8 [facility] Comment on above: Performed By: #### C BC #### [facility] [address] [place] [address] Dr. Errol Flannery Monocytes/100 WBC (Bld) 9.3 % Normal 1.7-12.0 [facility] Comment on above: Performed By: #### C BC #### [facility] [address] [place] [address] Dr. Errol Flannery NEUT # 3.8 103/ul Normal 1.4-6.5 [facility] Comment on above: Performed By: #### C BC #### [facility] [address] [place] [address] Dr. Errol Flannery Neutrophils/100 WBC (Bld) 64.4 % Normal 43.0-75.0 [facility] Comment on above: Performed By: #### C BC #### [facility] [address] [place] [address] Dr. Errol Flannery Platelet mean volume (Bld) [Entitic vol] 9.2 fL Critically low 9.5-13.5 [facility] Comment on above: Performed By: #### C BC #### [facility] [address] [place] [address] Dr. Errol Flannery PLT 233 103/ul Normal 150-450 [facility] Comment on above: Performed By: #### C BC #### [facility] [address] [place] [address] Dr. Errol Flannery RBC 3.72 106/ul Critically low 4.20-5.40 [facility] Comment on above: Performed By: #### C BC #### [facility] [address] [place] [address] Dr. Errol Flannery WBC 5.9 103/ul Normal 4.0-11.0 [facility] Comment on above: Performed By: #### C BC #### [facility] [address] [place] [address] Dr. Errol Flannery PROF 14(COMP METB)on 022 Albumin [Mass/Vol] 2.2 g/dL Critically low 3.4-5.0 [facility] Comment on above: Performed By: #### L ACT #### [facility] [address] [place] [address] Dr. Errol Flannery Albumin/Globulin [Mass ratio] 0.8 {ratio} Normal [facility] Comment on above: Performed By: #### L ACT #### [facility] [address] [place] [address] Dr. Errol Flannery ALP [Catalytic activity/Vol] 61 U/L Normal 46-116 [facility] Comment on above: Performed By: #### L ACT #### [facility] [address] [address] [address] Errol Flannery ALT [Catalytic activity/Vol] 28 U/L Normal 14-59 [facility] Comment on above: Performed By: #### L ACT #### [facility] [address] [place] [address] Dr. Errol Flannery Anion gap [Moles/Vol] 8.6 mmol/L Normal [facility] Comment on above: Performed By: #### L ACT #### [facility] [address] [place] [address] Dr. Errol Flannery AST [Catalytic activity/Vol] 14 U/L Critically low 15-37 [facility] Comment on above: Performed By: #### L ACT #### [facility] [address] [place] [address] Dr. Errol Flannery Bilirubin [Mass/Vol] 0.2 mg/dL Normal 0.2-1.0 [facility] Comment on above: Performed By: #### L ACT #### [facility] [address] [place] [address] Dr. Errol Flannery Calcium [Mass/Vol] 7.9 mg/dL Critically low 8.5-10.1 Th [facility] Comment on above: Performed By: #### L ACT #### [facility] [address] [address] [address] Errol Flannery Chloride [Moles/Vol] 109 mmol/L Critically high 98-107 [facility] Comment on above: Performed By: #### L ACT #### [facility] [address] [place] [address] Dr. Errol Flannery CO2 [Moles/Vol] 28.6 mmol/L Normal 21.0-32.0 [facility] Comment on above: Performed By: #### L ACT #### [facility] [address] [address] [address] Errol Flannery Creatinine [Mass/Vol] 1.05 mg/dL Critically high 0.55-1.02 [facility] Comment on above: Performed By: #### L ACT #### [facility] [address] [address] [address] Errol Flannery EGFR-AF [place] 60 mL/min/1.73m2 Normal >=60 [facility] Comment on above: Performed By: #### L ACT #### [facility] [address] [address] [address] Errol Flannery EGFR-NON AF [place] 50 mL/min/1.73m2 Critically low >=60 [facility] Comment on above: Performed By: #### L ACT #### [facility] [address] [address] [address] Errol Flannery Globulin (S) [Mass/Vol] 2.8 g/dL Normal [facility] Comment on above: Performed By: #### L ACT #### [facility] [address] [address] [address] Errol Flannery Glucose [Mass/Vol] 111 mg/dL Critically high 74-106 [facility] Comment on above: Performed By: #### L ACT #### [facility] [address] [address] [address] Errol Flannery Potassium [Moles/Vol] 3.2 mmol/L Critically low 3.5-5.1 [facility] Comment on above: Performed By: #### L ACT #### [facility] [address] [address] [address] Errol Flannery Protein [Mass/Vol] 5.0 g/dL Critically low 6.4-8.2 Th [facility] Comment on above: Performed By: #### L ACT #### [facility] [address] [address] [address] Errol Flannery Sodium [Moles/Vol] 143 mmol/L Normal 136-145 [facility] Comment on above: Performed By: #### L ACT #### [facility] [address] [place], [place] [address] Dr. Errol Flannery Urea nitrogen [Mass/Vol] 9.0 mg/dL Normal 7.0-18.0 [facility] Comment on above: Performed By: #### L ACT #### [facility] [address] [place], [place] [address] Dr. Errol Flannery Urea nitrogen/Creatinine [Mass ratio] 8.6 mg/mg Normal [facility] Comment on above: Performed By: #### L ACT #### [facility] [address] [address] [address] Errol Flannery CBC AUTO DIFFon 04-08-2022 BASO # 0.0 103/ul Normal 0.0-0.1 [facility] Comment on above: Performed By: #### C BC ####[facility] [address] [address]DrElana Flannery Basophils/100 WBC (Bld) 0.5 % Normal 0.2-2.0 [facility] Comment on above: Performed By: #### C BC ####[facility] [address] [address]Dr. Errol Flannery EO # 0.1 103/ul Normal 0.0-0.7 [facility] Comment on above: Performed By: #### C BC ####[facility] [address] [address]Dr. Errol Flannery Eosinophils/100 WBC (Bld) 1.8 % Normal 0.9-7.0 [facility] Comment on above: Performed By: #### C BC ####[facility] [address] [id number] Flannery Erythrocyte distribution width (RBC) [Ratio] 13.4 % Normal 11.0-15.0 [facility] Comment on above: Performed By: #### C BC ####[facility] [address] [id number]. Errol Flannery Hematocrit (Bld) [Volume fraction] 34.3 % Critically low 36.0-48.0 [facility] Comment on above: Performed By: #### C BC ####[facility] [address] [address]Dr. Errol Flannery Hemoglobin (Bld) [Mass/Vol] 11.1 g/dL Critically low 12.0-16.0 [facility] Comment on above: Performed By: #### C BC ####[facility] [address] [address]Dr. Errlo Flannery IG # 0.01 10e3/ul Normal 0.00-0.03 [facility] Comment on above: Performed By: #### C BC ####[facility] [address] [place], [place] [address]Dr. Errol Prudencio IG % 0.2 % Normal 0.0-0.5 [facility] Comment on above: Performed By: #### C BC ####[facility] [address] [place], [place] [address]Dr. Errol Prudencio LYMPH # 1.4 103/ul Normal 1.2-3.8 [facility] Comment on above: Performed By: #### C BC ####[facility] [address] [place], [place] [address]Dr. Errol Prudencio Lymphocytes/100 WBC (Bld) 32.4 % Normal 20.5-60.0 [facility] Comment on above: Performed By: #### C BC ####[facility] [address] [place], [place] [address]Dr. Errol Flannery MANUAL DIFF REQ NO Normal [facility] Comment on above: Performed By: #### C BC ####[facility] [address] [place], [place] [address]Dr. Errol Prudencio MCH (RBC) [Entitic mass] 30.4 pg Normal 26.7-34.0 [facility] Comment on above: Performed By: #### C BC ####[facility] [address] [place], [place] [address]Dr. Errol Flannery MCHC (RBC) [Mass/Vol] 32.4 g/dL Normal 29.9-35.2 [facility] Comment on above: Performed By: #### C BC ####[facility] [address] [address]Dr. Errol Flannery MCV (RBC) [Entitic vol] 94.0 fL Normal 81.0-99.0 [facility] Comment on above: Performed By: #### C BC ####[facility] [address] [id number]. Errol Flannery MONO # 0.5 103/ul Normal 0.3-0.8 [facility] Comment on above: Performed By: #### C BC ####[facility] [address] [address]Dr. Errol Prudencio Monocytes/100 WBC (Bld) 10.4 % Normal 1.7-12.0 [facility] Comment on above: Performed By: #### C BC ####[facility] [address] [place], [place] [address]Dr. Errol Flannery NEUT # 2.4 103/ul Normal 1.4-6.5 [facility] Comment on above: Performed By: #### C BC ####[facility] [address] [place], [place] [address]Dr. Errol Prudencio Neutrophils/100 WBC (Bld) 54.7 % Normal 43.0-75.0 [facility] Comment on above: Performed By: #### C BC ####[facility] [address] [place], [place] [address]Dr. Errol Prudencio Platelet mean volume (Bld) [Entitic vol] 9.3 fL Critically low 9.5-13.5 [facility] Comment on above: Performed By: #### C BC ####[facility] [address] [place], [place] [address]Dr. Errol Prudencio PLT 218 103/ul Normal 150-450 [facility] Comment on above: Performed By: #### C BC ####[facility] [address] [id number]. Errol Flannery RBC 3.65 106/ul Critically low 4.20-5.40 [facility] Comment on above: Performed By: #### C BC ####[facility] [address] [address]Dr. Errol Flannery WBC 4.4 103/ul Normal 4.0-11.0 [facility] Comment on above: Performed By: #### C BC ####[facility] [address] [address]Dr. Errol Flannery PROF 14(COMP METB)on 022 Albumin [Mass/Vol] 2.2 g/dL Critically low 3.4-5.0 Th [facility] Comment on above: Performed By: #### C MP ####[facility] [address] [address]Dr. Errol Flannery Albumin/Globulin [Mass ratio] 0.8 {ratio} Normal [facility] Comment on above: Performed By: #### C MP ####[facility] [address] [place], [place] [address]Dr. Errol Flannery ALP [Catalytic activity/Vol] 64 U/L Normal 46-116 [facility] Comment on above: Performed By: #### C MP ####[facility] [address] [place], [place] [address]Dr. Errol Flannery ALT [Catalytic activity/Vol] 34 U/L Normal 14-59 [facility] Comment on above: Performed By: #### C MP ####[facility] [address] [address]Dr. Errol Flannery Anion gap [Moles/Vol] 8.1 mmol/L Normal [facility] Comment on above: Performed By: #### C MP ####[facility] [address] [address]Dr. Errol Flannery AST [Catalytic activity/Vol] 14 U/L Critically low 15-37 [facility] Comment on above: Performed By: #### C MP ####[facility] [address] [address]Dr. Errol Flannery Bilirubin [Mass/Vol] 0.3 mg/dL Normal 0.2-1.0 [facility] Comment on above: Performed By: #### C MP ####[facility] [address] [address]Dr. Errol Flannery Calcium [Mass/Vol] 8.1 mg/dL Critically low 8.5-10.1 Th [facility] Comment on above: Performed By: #### C MP ####[facility] [address] [address]Dr. Errol Flannery Chloride [Moles/Vol] 110 mmol/L Critically high 98-107 [facility] Comment on above: Performed By: #### C MP ####[facility] [address] [address]Dr. Errol Flannery CO2 [Moles/Vol] 28.0 mmol/L Normal 21.0-32.0 [facility] Comment on above: Performed By: #### C MP ####[facility] [address] [place], [place] [address]Dr. Errol Flannery Creatinine [Mass/Vol] 1.00 mg/dL Normal 0.55-1.02 [facility] Comment on above: Performed By: #### C MP ####[facility] [address] [place], [place] [address]Dr. Errol Flannery EGFR-AF [place] >60 Normal >=60 [facility] Comment on above: Performed By: #### C MP ####[facility] [address] [place], [place] [address]Dr. Errol Flannery EGFR-NON AF [place] 52 mL/min/1.73m2 Critically low >=60 [facility] Comment on above: Performed By: #### C MP ####[facility] [address] [place], [place] [address]Dr. Errol Flannery Globulin (S) [Mass/Vol] 2.7 g/dL Normal [facility] Comment on above: Performed By: #### C MP ####[facility] [address] [address]Dr. Errol Flannery Glucose [Mass/Vol] 88 mg/dL Normal 74-106 [facility] Comment on above: Performed By: #### C MP ####[facility] [address] [address]Dr. Errol Flannery Potassium [Moles/Vol] 3.1 mmol/L Critically low 3.5-5.1 [facility] Comment on above: Performed By: #### C MP ####[facility] [address] [address]Dr. Errol Flannery Protein [Mass/Vol] 4.9 g/dL Critically low 6.4-8.2 Th [facility] Comment on above: Performed By: #### C MP ####[facility] [address] [address]Dr. Errol Flannery Sodium [Moles/Vol] 143 mmol/L Normal 136-145 [facility] Comment on above: Performed By: #### C MP ####[facility] [address] [address]Dr. Errol Flannery Urea nitrogen [Mass/Vol] 5.0 mg/dL Critically low 7.0-18.0 [facility] Comment on above: Performed By: #### C MP ####[facility] [address] [place], [place] [address]Dr. Errol Flannery Urea nitrogen/Creatinine [Mass ratio] 5.0 mg/mg Normal [facility] Comment on above: Performed By: #### C MP ####[facility] [address] [address]Dr. Errol Flannery CBC AUTO DIFFon 04-07-2022 BASO # 0.0 103/ul Normal 0.0-0.1 [facility] Comment on above: Performed By: #### L ACT #### [facility] [address] [address] [address] Errol Flannery Basophils/100 WBC (Bld) 0.7 % Normal 0.2-2.0 [facility] Comment on above: Performed By: #### L ACT #### [facility] [address] [address] [address] Errol Flannery EO # 0.1 103/ul Normal 0.0-0.7 [facility] Comment on above: Performed By: #### L ACT #### [facility] [address] [place] [address] Dr. Errol Flannery Eosinophils/100 WBC (Bld) 2.0 % Normal 0.9-7.0 [facility] Comment on above: Performed By: #### L ACT #### [facility] [facility] [address] [place] [address] Dr. Errol Flannery Erythrocyte distribution width (RBC) [Ratio] 13.6 % Normal 11.0-15.0 [facility] Comment on above: Performed By: #### L ACT #### [facility] [address] [place] [address] Dr. Errol Flannery Hematocrit (Bld) [Volume fraction] 34.3 % Critically low 36.0-48.0 [facility] Comment on above: Performed By: #### L ACT #### [facility] [address] [place] [address] Dr. Errol Flannery Hemoglobin (Bld) [Mass/Vol] 11.1 g/dL Critically low 12.0-16.0 [facility] Comment on above: Performed By: #### L ACT #### [facility] [address] [place] [address] Dr. Errol Flannery IG # 0.02 10e3/ul Normal 0.00-0.03 [facility] Comment on above: Performed By: #### L ACT #### [facility] [address] [place] [address] Dr. Errol Flannery IG % 0.4 % Normal 0.0-0.5 [facility] Comment on above: Performed By: #### L ACT #### [facility] [address] [place] [address] Dr. Errol Flannery LYMPH # 1.4 103/ul Normal 1.2-3.8 [facility] Comment on above: Performed By: #### L ACT #### [facility] [address] [place] [address] Dr. Errol Flannery Lymphocytes/100 WBC (Bld) 30.4 % Normal 20.5-60.0 [facility] Comment on above: Performed By: #### L ACT #### [facility] [address] [place] [address] Dr. Errlo Flannery MANUAL DIFF REQ NO Normal [facility] Comment on above: Performed By: #### L ACT #### [facility] [address] [place] [address] Dr. Errol Flannery MCH (RBC) [Entitic mass] 30.8 pg Normal 26.7-34.0 [facility] Comment on above: Performed By: #### L ACT #### [facility] [address] [place] [address] Dr. Errol Flannery MCHC (RBC) [Mass/Vol] 32.4 g/dL Normal 29.9-35.2 [facility] Comment on above: Performed By: #### L ACT #### [facility] [address] [place] [address] Dr. Errol Flannery MCV (RBC) [Entitic vol] 95.3 fL Normal 81.0-99.0 [facility] Comment on above: Performed By: #### L ACT #### [facility] [address] [place] [address] Dr. Errol Flannery MONO # 0.4 103/ul Normal 0.3-0.8 [facility] Comment on above: Performed By: #### L ACT #### [facility] [address] [place] [address] Dr. Errol Flannery Monocytes/100 WBC (Bld) 9.3 % Normal 1.7-12.0 [facility] Comment on above: Performed By: #### L ACT #### [facility] [address] [place] [address] Dr. Errol Flannery NEUT # 2.6 103/ul Normal 1.4-6.5 [facility] Comment on above: Performed By: #### L ACT #### [facility] [address] [place] [address] Dr. Errol Flannery Neutrophils/100 WBC (Bld) 57.2 % Normal 43.0-75.0 [facility] Comment on above: Performed By: #### L ACT #### [facility] [address] [place], [place] [address] Dr. Errol Flannery Platelet mean volume (Bld) [Entitic vol] 9.7 fL Normal 9.5-13.5 [facility] Comment on above: Performed By: #### L ACT #### [facility] [address] [place], [place] [address] Dr. Errol Flannery PLT 220 103/ul Normal 150-450 [facility] Comment on above: Performed By: #### L ACT #### [facility] [address] [place], [place] [address] Dr. Errol Flannery RBC 3.60 106/ul Critically low 4.20-5.40 [facility] Comment on above: Performed By: #### L ACT #### [facility] [address] [place] [address] [address] Errol Flannery WBC 4.6 103/ul Normal 4.0-11.0 [facility] Comment on above: Performed By: #### L ACT #### [facility] [address] [place], [place] [address] ABD/PELV W CONon 04-07-20 CT ABD/PELV W CON EXAMINATION: CT ABD/PELV W CON HISTORY: pain , diarrhea COMPARISON: CT abdomen pelvis 04/04/2022 TECHNIQUE: Axial, Coronal, and Sagittal images were created with IV contrast. Dose reduction techniques were achieved by using automated exposure control and/or adjustment of mA and/or kV according to patient size and/or use of iterative reconstruction technique. FINDINGS: LUNG BASES: Mild infiltrates versus atelectasis within posterior lung bases, right greater than left. Trace amount of pleural fluid bilaterally. LIVER: No enlargement, atrophy, suspicious density, or significant focal lesion. BILIARY: Cholecystectomy. PANCREAS: Marked atrophy. Stable 9 mm pseudocyst within tail. SPLEEN: No enlargement or focal lesion. ADRENALS: No mass or enlargement. KIDNEYS: Stable appearance of a few cortical and parapelvic cysts bilaterally. 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 Moderate cortical atrophy bilaterally. BOWEL/MESENTERY: Diverticulosis of the sigmoid colon with a 3 cm area anterior to the proximal sigmoid colon consistent with inflammatory changes of the fat. Suspect small focus of free air within the fat. No bowel obstruction. No free fluid. AORTA/VASCULAR: No aneurysm or dissection. RETROPERITONEUM: No mass or adenopathy. LYMPH NODES: No adenopathy. URINARY BLADDER: No visible focal wall thickening, lesion, or calculus. PELVIC ORGANS: No visible mass. Pelvic organs appropriate for patient age. ABDOMINAL WALL: No mass or hernia. BONES: L4-L5 marked degenerative disc disease with central canal and foramen narrowing. Multilevel moderate degenerative facet arthropathy. OTHER: Negative. IMPRESSION: 1. Acute diverticulitis of the proximal most sigmoid colon with pericolonic inflammatory changes which are slightly more consolidated and smaller in overall size compared to prior study. A few small foci of free air suspected within the pericolonic inflammatory changes. No free fluid or abscess. No bowel obstruction. 2. Mild atelectasis versus infiltrates within the dependent lung bases. 3. Tiny bilateral pleural effusions. 4. Additional chronic changes as detailed above. Electronically authenticated by: ALEXANDER DUMONT Date: 2022-04-07 12:50 Normal The [facility] PROF 14(COMP METB)on 04-07- 022 Albumin [Mass/Vol] 2.2 g/dL Critically low 3.4-5.0 Th e [facility] Comment on above: Performed By: #### C MP ####[facility] [address] [place] [address]Dr. Errol Flannery Albumin/Globulin [Mass ratio] 0.8 {ratio} Normal [facility] Comment on above: Performed By: #### C MP ####[facility] [address] [place] [address]DrElana Flannery ALP [Catalytic activity/Vol] 70 U/L Normal 46-116 [facility] Comment on above: Performed By: #### C MP ####[facility] [address] [place] [address]Dr. Errol Flannery ALT [Catalytic activity/Vol] 40 U/L Normal 14-59 [facility] Comment on above: Performed By: #### C MP ####[facility] [address] [place] [address]DrElana Flannery Anion gap [Moles/Vol] 10.0 mmol/L Normal [facility] Comment on above: Performed By: #### C MP ####[facility] [address] [place] [id number]. Errol Flannery AST [Catalytic activity/Vol] 16 U/L Normal 15-37 [facility] Comment on above: Performed By: #### C MP ####[facility] [address] [place] [id number]. Errol Flannery Bilirubin [Mass/Vol] 0.4 mg/dL Normal 0.2-1.0 [facility] Comment on above: Performed By: #### C MP ####[facility] [address] [place] [address]Dr. Errol Prudencio Calcium [Mass/Vol] 8.4 mg/dL Critically low 8.5-10.1 Th [facility] Comment on above: Performed By: #### C MP ####[facility] [address] [place], [place] [address]Dr. Errol Prudencio Chloride [Moles/Vol] 111 mmol/L Critically high 98-107 [facility] Comment on above: Performed By: #### C MP ####[facility] [address] [place], [place] [address]Dr. Errol Flannery CO2 [Moles/Vol] 26.3 mmol/L Normal 21.0-32.0 [facility] Comment on above: Performed By: #### C MP ####[facility] [address] [place], [place] [address]Dr. Errol Prudencio Creatinine [Mass/Vol] 1.05 mg/dL Critically high 0.55-1.02 [facility] Comment on above: Performed By: #### C MP ####[facility] [address] [place] [id number]. Errol Flannery EGFR-AF [place] 60 mL/min/1.73m2 Normal >=60 Th [facility] Comment on above: Performed By: #### C MP ####[facility] [address] [place], [place] [id number]. Errol Flannery EGFR-NON AF [place] 50 mL/min/1.73m2 Critically low >=60 [facility] Comment on above: Performed By: #### C MP ####[facility] [address] [place] [address]Dr. Errol Flannery Globulin (S) [Mass/Vol] 2.8 g/dL Normal [facility] Comment on above: Performed By: #### C MP ####[facility] [address] [place] [address]Dr. Errol Flannery Glucose [Mass/Vol] 95 mg/dL Normal 74-106 [facility] Comment on above: Performed By: #### C MP ####[facility] [address] [place] [address]Dr. Pammissy Prudencio Potassium [Moles/Vol] 3.3 mmol/L Critically low 3.5-5.1 [facility] Comment on above: Performed By: #### C MP ####[facility] [address] [place], [place] [address]Dr. Errol Flannery Protein [Mass/Vol] 5.0 g/dL Critically low 6.4-8.2 [facility] Comment on above: Performed By: #### C MP ####[facility] [address] [place], [place] [address]Dr. Errol Prudencio Sodium [Moles/Vol] 144 mmol/L Normal 136-145 [facility] Comment on above: Performed By: #### C MP ####[facility] [address] [place], [place] [address]Dr. Errol Prudencio Urea nitrogen [Mass/Vol] 10.0 mg/dL Normal 7.0-18.0 [facility] Comment on above: Performed By: #### C MP ####[facility] [address] [place], [place] [address]Dr. Pammissy Prudencio Urea nitrogen/Creatinine [Mass ratio] 9.5 mg/mg Normal [facility] Comment on above: Performed By: #### C MP ####[facility] [address] [place], [place] [address]Dr. Pammissy Prudencio CBC AUTO DIFFon 07-19-2022 BASO # 0.0 103/ul Normal 0.0-0.1 [facility] Comment on above: Performed By: #### C BC #### [facility] [address] [place] [address] Dr. Errol Flannery Basophils/100 WBC (Bld) 0.3 % Normal 0.2-2.0 [facility] Comment on above: Performed By: #### C BC #### [facility] [address] [place] [address] Dr. Errol Flannery EO # 0.0 103/ul Normal 0.0-0.7 [facility] Comment on above: Performed By: #### C BC #### [facility] [address] [place] [address] Dr. Errol Flannery Eosinophils/100 WBC (Bld) 0.4 % Critically low 0.9-7.0 [facility] Comment on above: Performed By: #### C BC #### [facility] [address] [place] [address] Dr. Errol Flannery Erythrocyte distribution width (RBC) [Ratio] 13.6 % Normal 11.0-15.0 [facility] Comment on above: Performed By: #### C BC #### [facility] [address] [place] [address] Dr. Errol Flannery Hematocrit (Bld) [Volume fraction] 35.7 % Critically low 36.0-48.0 [facility] Comment on above: Performed By: #### C BC #### [facility] [address] [place] [address] Dr. Errol Flannery Hemoglobin (Bld) [Mass/Vol] 11.5 g/dL Critically low 12.0-16.0 [facility] Comment on above: Performed By: #### C BC #### [facility] [address] [place] [address] Dr. Errol Flannery IG # 0.03 10e3/ul Normal 0.00-0.03 [facility] Comment on above: Performed By: #### C BC #### [facility] [address] [place] [address] Dr. Errol Flannery IG % 0.4 % Normal 0.0-0.5 [facility] Comment on above: Performed By: #### C BC #### [facility] [address] [place] [address] Dr. Errol Flannery LYMPH # 1.3 103/ul Normal 1.2-3.8 [facility] Comment on above: Performed By: #### C BC #### [facility] [address] [place] [address] Dr. Errol Flannery Lymphocytes/100 WBC (Bld) 17.5 % Critically low 20.5-60.0 [facility] Comment on above: Performed By: #### C BC #### [facility] [address] [place] [address] Dr. Errol Flannery MANUAL DIFF REQ NO Normal [facility] Comment on above: Performed By: #### C BC #### [facility] [address] [place] [address] Dr. Errol Flannery MCH (RBC) [Entitic mass] 30.5 pg Normal 26.7-34.0 [facility] Comment on above: Performed By: #### C BC #### [facility] [address] [place] [address] Dr. Errol Flannery MCHC (RBC) [Mass/Vol] 32.2 g/dL Normal 29.9-35.2 [facility] Comment on above: Performed By: #### C BC #### [facility] [address] [place] [address] Dr. Errol Flannery MCV (RBC) [Entitic vol] 94.7 fL Normal 81.0-99.0 [facility] Comment on above: Performed By: #### C BC #### [facility] [address] [place] [address] Dr. Errol Flannery MONO # 0.6 103/ul Normal 0.3-0.8 [facility] Comment on above: Performed By: #### C BC #### [facility] [address] [place] [address] Dr. Errol Flannery Monocytes/100 WBC (Bld) 8.5 % Normal 1.7-12.0 [facility] Comment on above: Performed By: #### C BC #### [facility] [address] [place] [address] [address] Errol Flannery NEUT # 5.2 103/ul Normal 1.4-6.5 [facility] Comment on above: Performed By: #### C BC #### [facility] [address] [place] [address] [address] Errol Flannery Neutrophils/100 WBC (Bld) 72.9 % Normal 43.0-75.0 [facility] Comment on above: Performed By: #### C BC #### [facility] [address] [place] [address] [address] Errol Flannery Platelet mean volume (Bld) [Entitic vol] 9.9 fL Normal 9.5-13.5 [facility] Comment on above: Performed By: #### C BC #### [facility] [address] [place] [address] Dr. Errol Flannery PLT 190 103/ul Normal 150-450 [facility] Comment on above: Performed By: #### C BC #### [facility] [address] [place] [address] [address] Errol Flannery RBC 3.77 106/ul Critically low 4.20-5.40 [facility] Comment on above: Performed By: #### C BC #### [facility] [address] [place] [address] [address] Errol Flannery WBC 7.2 103/ul Normal 4.0-11.0 [facility] Comment on above: Performed By: #### C BC #### [facility] [address] [place] [address] [address] Errol Flannery PROF 14(COMP METB)on 022 Albumin [Mass/Vol] 2.1 g/dL Critically low 3.4-5.0 [facility] Comment on above: Performed By: #### C MP #### [facility] [address] [place] [address] [address] Errol Flannery Albumin/Globulin [Mass ratio] 0.7 {ratio} Normal [facility] Comment on above: Performed By: #### C MP #### [facility] [address] [place] [address] [address] Errol Flannery ALP [Catalytic activity/Vol] 74 U/L Normal 46-116 [facility] Comment on above: Performed By: #### C MP #### [facility] [address] [place] [address] [address] Errol Flannery ALT [Catalytic activity/Vol] 52 U/L Normal 14-59 [facility] Comment on above: Performed By: #### C MP #### [facility] [address] [place] [address] [address] Errol Flannery Anion gap [Moles/Vol] 14.0 mmol/L Normal [facility] Comment on above: Performed By: #### C MP #### [facility] [address] [place] [address] Dr. Errol Flannery AST [Catalytic activity/Vol] 24 U/L Normal 15-37 [facility] Comment on above: Performed By: #### C MP #### [facility] [address] [place] [address] Dr. Errol Flannery Bilirubin [Mass/Vol] 0.5 mg/dL Normal 0.2-1.0 [facility] Comment on above: Performed By: #### C MP #### [facility] [address] [place] [address] Dr. Errol Falnnery Calcium [Mass/Vol] 8.1 mg/dL Critically low 8.5-10.1 Th [facility] Comment on above: Performed By: #### C MP #### [facility] [address] [place] [address] [address] Errol Flannery Chloride [Moles/Vol] 109 mmol/L Critically high 98-107 [facility] Comment on above: Performed By: #### C MP #### [facility] [address] [place] [address] [address] Errol Flannery CO2 [Moles/Vol] 24.6 mmol/L Normal 21.0-32.0 [facility] Comment on above: Performed By: #### C MP #### [facility] [address] [place] [address] [address] Errol Flannery Creatinine [Mass/Vol] 0.93 mg/dL Normal 0.55-1.02 [facility] Comment on above: Performed By: #### C MP #### [facility] [address] [place] [address] [address] Errol Flannery EGFR-AF [place] >60 Normal >=60 [facility] Comment on above: Performed By: #### C MP #### [facility] [address] [place] [address] [address] Errol Flannery EGFR-NON AF [place] 57 mL/min/1.73m2 Critically low >=60 [facility] Comment on above: Performed By: #### C MP #### [facility] [address] [place] [address] Dr. Errol Flannery Globulin (S) [Mass/Vol] 3.0 g/dL Normal [facility] Comment on above: Performed By: #### C MP #### [facility] [address] [place] [address] [address] Errol Flannery Glucose [Mass/Vol] 93 mg/dL Normal 74-106 [facility] Comment on above: Performed By: #### C MP #### [facility] [address] [place] [address] Dr. Errol Flannery Potassium [Moles/Vol] 3.6 mmol/L Normal 3.5-5.1 [facility] Comment on above: Performed By: #### C MP #### [facility] [address] [place] [address] [address] Errol Flannery Protein [Mass/Vol] 5.1 g/dL Critically low 6.4-8.2 Th [facility] Comment on above: Performed By: #### C MP #### [facility] [address] [place] [address] [address] rErol Flannery Sodium [Moles/Vol] 141 mmol/L Normal 136-145 [facility] Comment on above: Performed By: #### C MP #### [facility] [address] [place] [address] [address] Errol Flannery Urea nitrogen [Mass/Vol] 11.0 mg/dL Normal 7.0-18.0 [facility] Comment on above: Performed By: #### C MP #### [facility] [address] [place] [address] [address] Errol Flannery Urea nitrogen/Creatinine [Mass ratio] 11.8 mg/mg Normal [facility] Comment on above: Performed By: #### C MP #### [facility] [address] [place] [address] [address] Errol Flannery XR ABD FLAT UP_PA Danial 04-06 XR ABD FLAT UP_PA CH EXAMINATION: XR ABD FLAT UP_PA CH HISTORY: Lower abdominal pain , shortness of breath COMPARISON: No relevant comparison available. FINDINGS: LUNGS: No infiltrate, pneumothorax, or pleural effusion. MEDIASTINUM: No abnormal widening. BOWEL GAS PATTERN: A few small fluid levels scattered within the bowel; no abnormal dilation or obstruction. FREE AIR: None. CALCIFICATIONS: None significant. BONES: Marked degenerative disc disease of lower lumbar spine. Left hip replacement. Right hip moderate degenerative changes. OTHER: Negative. IMPRESSION: 1. No acute cardiopulmonary process. 2. No bowel obstruction. Possible mild enteritis. Electronically authenticated by: ALEXANDER DUMONT Date: 2022-04-06 11:49 Normal [facility] CBC AUTO DIFFon 04-05-2022 BASO # 0.0 103/ul Normal 0.0-0.1 [facility] Comment on above: Performed By: #### L ACT #### [facility] [address] [place] [address] Dr. Errol Flannery Basophils/100 WBC (Bld) 0.2 % Normal 0.2-2.0 [facility] Comment on above: Performed By: #### L ACT #### [facility] [address] [place] [address] Dr. Errol Flannery EO # 0.0 103/ul Normal 0.0-0.7 [facility] Comment on above: Performed By: #### L ACT #### [facility] [address] [place] [address] Dr. Errol Flannery Eosinophils/100 WBC (Bld) 0.1 % Critically low 0.9-7.0 [facility] Comment on above: Performed By: #### L ACT #### [facility] [address] [place] [address] Dr. Errol Flannery Erythrocyte distribution width (RBC) [Ratio] 13.6 % Normal 11.0-15.0 [facility] Comment on above: Performed By: #### L ACT #### [facility] [address] [place] [address] Dr. Errol Flannery Hematocrit (Bld) [Volume fraction] 37.1 % Normal 36.0-48.0 [facility] Comment on above: Performed By: #### L ACT #### [facility] [address] [place] [address] Dr. Errol Flannery Hemoglobin (Bld) [Mass/Vol] 11.9 g/dL Critically low 12.0-16.0 [facility] Comment on above: Performed By: #### L ACT #### [facility] [address] [place] [address] Dr. Errol Flannery IG # 0.04 10e3/ul Critically high 0.00-0.03 [facility] Comment on above: Performed By: #### L ACT #### [facility] [address] [place] [address] Dr. Errol Flannery IG % 0.4 % Normal 0.0-0.5 [facility] Comment on above: Performed By: #### L ACT #### [facility] [address] [place] [address] Dr. Errol Flannery LYMPH # 1.2 103/ul Normal 1.2-3.8 [facility] Comment on above: Performed By: #### L ACT #### [facility] [address] [place] [address] Dr. Errol Flannery Lymphocytes/100 WBC (Bld) 11.1 % Critically low 20.5-60.0 [facility] Comment on above: Performed By: #### L ACT #### [facility] [address] [place] [address] Dr. Errol Flannery MANUAL DIFF REQ NO Normal [facility] Comment on above: Performed By: #### L ACT #### [facility] [address] [address] [address] Errol Flannery MCH (RBC) [Entitic mass] 30.4 pg Normal 26.7-34.0 [facility] Comment on above: Performed By: #### L ACT #### [facility] [address] [address] [address] Errol Flannery MCHC (RBC) [Mass/Vol] 32.1 g/dL Normal 29.9-35.2 [facility] Comment on above: Performed By: #### L ACT #### [facility] [address] [place] [address] Dr. Errol Flannery MCV (RBC) [Entitic vol] 94.9 fL Normal 81.0-99.0 [facility] Comment on above: Performed By: #### L ACT #### [facility] [address] [place] [address] Dr. Errol Flannery MONO # 0.8 103/ul Normal 0.3-0.8 [facility] Comment on above: Performed By: #### L ACT #### [facility] [address] [place] [address] Dr. Errol Flannery Monocytes/100 WBC (Bld) 7.7 % Normal 1.7-12.0 [facility] Comment on above: Performed By: #### L ACT #### [facility] [address] [place] [address] Dr. Errol Flannery NEUT # 8.4 103/ul Critically high 1.4-6.5 [facility] Comment on above: Performed By: #### L ACT #### [facility] [address] [place] [address] Dr. Errol Flannery Neutrophils/100 WBC (Bld) 80.5 % Critically high 43.0-75.0 [facility] Comment on above: Performed By: #### L ACT #### [facility] [address] [place] [address] Dr. Errol Flannery Platelet mean volume (Bld) [Entitic vol] 9.4 fL Critically low 9.5-13.5 [facility] Comment on above: Performed By: #### L ACT #### [facility] [address] [address] [address] Errol Flannery PLT 197 103/ul Normal 150-450 [facility] Comment on above: Performed By: #### L ACT #### [facility] [id number] Errol Flannery RBC 3.91 106/ul Critically low 4.20-5.40 [facility] Comment on above: Performed By: #### L ACT #### [facility] [id number] Errol Flannery WBC 10.5 103/ul Normal 4.0-11.0 [facility] Comment on above: Performed By: #### L ACT #### [facility] [address] [address] [address] Errol Flannery PROF 14(COMP METB)on 022 Albumin [Mass/Vol] 2.4 g/dL Critically low 3.4-5.0 [facility] Comment on above: Performed By: #### C MP ####[facility] [address] [address]DrElana Flannery Albumin/Globulin [Mass ratio] 0.8 {ratio} Normal [facility] Comment on above: Performed By: #### C MP ####[facility] [address] [id number] Flannery ALP [Catalytic activity/Vol] 94 U/L Normal 46-116 [facility] Comment on above: Performed By: #### C MP ####[facility] [address] [id number] Flannery ALT [Catalytic activity/Vol] 87 U/L Critically high 14-59 [facility] Comment on above: Performed By: #### C MP ####[facility] [address] [id number] Flannery Anion gap [Moles/Vol] 8.3 mmol/L Normal [facility] Comment on above: Performed By: #### C MP ####[facility] [address] [id number]. Errol Flannery AST [Catalytic activity/Vol] 47 U/L Critically high 15-37 [facility] Comment on above: Performed By: #### C MP ####[facility] [address] [id number]. Errol Flannery Bilirubin [Mass/Vol] 0.6 mg/dL Normal 0.2-1.0 [facility] Comment on above: Performed By: #### C MP ####[facility] [address] [address]Dr. Errol Flannery Calcium [Mass/Vol] 8.3 mg/dL Critically low 8.5-10.1 [facility] e [facility] Comment on above: Performed By: #### C MP ####[facility] [address] [place], [place] [address]Dr. Errol Flannery Chloride [Moles/Vol] 106 mmol/L Normal 98-107 [facility] Comment on above: Performed By: #### C MP ####[facility] [address] [place], [place] [address]Dr. Errol Flannery CO2 [Moles/Vol] 29.3 mmol/L Normal 21.0-32.0 [facility] Comment on above: Performed By: #### C MP ####[facility] [address] [place], [place] [address]Dr. Errol Flannery Creatinine [Mass/Vol] 0.97 mg/dL Normal 0.55-1.02 [facility] Comment on above: Performed By: #### C MP ####[facility] [address] [id number]. Errol Prudencio EGFR-AF [place] >60 Normal >=60 [facility] Comment on above: Performed By: #### C MP ####[facility] [address] [id number]. Pammissy Prudencio EGFR-NON AF [place] 54 mL/min/1.73m2 Critically low >=60 [facility] Comment on above: Performed By: #### C MP ####[facility] [address] [address]Dr. Errol Flannery Globulin (S) [Mass/Vol] 3.1 g/dL Normal [facility] Comment on above: Performed By: #### C MP ####[facility] [address] [address]Dr. Errol Flannery Glucose [Mass/Vol] 100 mg/dL Normal 74-106 [facility] Comment on above: Performed By: #### C MP ####[facility] [address] [address]Dr. Errol Prudencio Potassium [Moles/Vol] 3.6 mmol/L Normal 3.5-5.1 [facility] Comment on above: Performed By: #### C MP ####[facility] [address] [place], [place] [address]Dr. Errol Flannery Protein [Mass/Vol] 5.5 g/dL Critically low 6.4-8.2 [facility] Comment on above: Performed By: #### C MP ####[facility] [address] [place], [place] [address]Dr. Errol Flannery Sodium [Moles/Vol] 140 mmol/L Normal 136-145 [facility] Comment on above: Performed By: #### C MP ####[facility] [address] [place], [place] [address]Dr. Errol Flannery Urea nitrogen [Mass/Vol] 15.0 mg/dL Normal 7.0-18.0 [facility] Comment on above: Performed By: #### C MP ####[facility] [address] [place], [place] [address]Dr. Errol Flannery Urea nitrogen/Creatinine [Mass ratio] 15.5 mg/mg Normal [facility] Comment on above: Performed By: #### C MP ####[facility] [address] [place], [place] [address]Dr. Errol Prudencio XR ABD FLAT_UPon 04-05-2022 XR ABD FLAT_UP EXAMINATION: XR ABD FLAT_UP HISTORY: Lower abdominal pain COMPARISON: CT ABD/PELV 04/04/2022 FINDINGS: BOWEL GAS PATTERN: Non-obstructed. No abnormal dilation. FREE AIR: None. CALCIFICATIONS: None significant. BONES: No fracture or visible bone lesion. OTHER: Negative. IMPRESSION: 1. No bowl obstruction or acute findings to account for patient's symptoms. Electronically authenticated by: ALEXANDER DUMONT Date: 2022-04-05 07:15 Normal [facility] CBC AUTO DIFFon 04-04-2022 BASO # 0.0 103/ul Normal 0.0-0.1 [facility] Comment on above: Performed By: #### C BC #### [facility] [address] [address] [address] Errol Flannery Basophils/100 WBC (Bld) 0.2 % Normal 0.2-2.0 [facility] Comment on above: Performed By: #### C BC #### [facility] [address] [address] [address] Errol Flannery EO # 0.0 103/ul Normal 0.0-0.7 [facility] Comment on above: Performed By: #### C BC #### [facility] [address] [address] [address] Errol Flannery Eosinophils/100 WBC (Bld) 0.0 % Critically low 0.9-7.0 [facility] Comment on above: Performed By: #### C BC #### [facility] [address] [address] [address] Errol Flannery Erythrocyte distribution width (RBC) [Ratio] 13.6 % Normal 11.0-15.0 [facility] Comment on above: Performed By: #### C BC #### [facility] [address] [address] [address] Errol Flannery Hematocrit (Bld) [Volume fraction] 44.1 % Normal 36.0-48.0 [facility] Comment on above: Performed By: #### C BC #### [facility] [address] [address] [address] Errol Flannery Hemoglobin (Bld) [Mass/Vol] 14.5 g/dL Normal 12.0-16.0 [facility] Comment on above: Performed By: #### C BC #### [facility] [address] [address] [address] Errol Flannery IG # 0.07 10e3/ul Critically high 0.00-0.03 [facility] Comment on above: Performed By: #### C BC #### [facility] [address] [address] [address] Errol Flannery IG % 0.4 % Normal 0.0-0.5 [facility] Comment on above: Performed By: #### C BC #### [facility] [address] [place] [address] Dr. Errol Flannery LYMPH # 1.4 103/ul Normal 1.2-3.8 [facility] Comment on above: Performed By: #### C BC #### [facility] [address] [place] [address] Dr. Errol Flannery Lymphocytes/100 WBC (Bld) 7.4 % Critically low 20.5-60.0 [facility] Comment on above: Performed By: #### C BC #### [facility] [address] [place] [address] Dr. Errol Flannery MANUAL DIFF REQ NO Normal [facility] Comment on above: Performed By: #### C BC #### [facility] [address] [place] [address] Dr. Errol Flannery MCH (RBC) [Entitic mass] 30.7 pg Normal 26.7-34.0 [facility] Comment on above: Performed By: #### C BC #### [facility] [address] [place] [address] Dr. Errol Flannery MCHC (RBC) [Mass/Vol] 32.9 g/dL Normal 29.9-35.2 [facility] Comment on above: Performed By: #### C BC #### [facility] [address] [place] [address] Dr. Errol Flannery MCV (RBC) [Entitic vol] 93.2 fL Normal 81.0-99.0 [facility] Comment on above: Performed By: #### C BC #### [facility] [address] [place] [address] Dr. Errol Flannery MONO # 1.5 103/ul Critically high 0.3-0.8 [facility] Comment on above: Performed By: #### C BC #### [facility] [address] [address] [address] Errol Flannery Monocytes/100 WBC (Bld) 7.8 % Normal 1.7-12.0 [facility] Comment on above: Performed By: #### C BC #### [facility] [address] [place] [address] Dr. Errol Flannery NEUT # 15.6 103/ul Critically high 1.4-6.5 [facility] Comment on above: Performed By: #### C BC #### [facility] [address] [place] [address] Dr. Errol Flannery Neutrophils/100 WBC (Bld) 84.2 % Critically high 43.0-75.0 [facility] Comment on above: Performed By: #### C BC #### [facility] [address] [place] [address] Dr. Errol Flannery Platelet mean volume (Bld) [Entitic vol] 9.6 fL Normal 9.5-13.5 [facility] Comment on above: Performed By: #### C BC #### [facility] [address] [place] [address] Dr. Errol Flannery PLT 260 103/ul Normal 150-450 [facility] Comment on above: Performed By: #### C BC #### [facility] [address] [place] [address] Dr. Errol Flannery RBC 4.73 106/ul Normal 4.20-5.40 [facility] Comment on above: Performed By: #### C BC #### [facility] [address] [place] [address] Dr. Errol Flannery WBC 18.5 103/ul Critically high 4.0-11.0 [facility] Comment on above: Performed By: #### C BC #### [facility] [address] [address] [address] ABD/PELV W CONon 04-04-[address] ABD/PELV W CON EXAMINATION: CT ABD/PELV W CON 04/04/2022 COMPARISON STUDY: CT of the abdomen and pelvis with contrast 06/13/2020. HISTORY: Lower abdominal pain. TECHNIQUE: 3 mm sections were obtained from the lung bases through the pubic symphysis following administration of intravenous contrast. Coronal and sagittal reconstructed images were obtained. Dose reduction techniques were achieved by using automated exposure control and/or adjustment of mA and/or kV according to patient size and/or use of iterative reconstruction technique. CT ABDOMEN: Minor bibasilar/supine atelectatic changes noted. Heart size is stable. There are calcifications involving the valvular annuli, coronary arteries as well as the aortic valve leaflets. There is no effusion. Gallbladder is surgically absent. Liver, spleen and adrenals appear unremarkable. Similar background glandular changes of the pancreas and kidneys noted. There is a unilocular cyst involving the pancreatic body on image #41 with transverse diameter of 10 mm an attenuation measurement of -2 Hounsfield units. On coronal image 28 this measures 9 mm. Bilateral renal cysts are again identified. The largest is noted at the inferior pole of the left kidney measuring 3.1 cm. 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 An upper pole right renal cyst measures 12 mm. Small bilateral renal sinus cysts are also noted. CT PELVIS: Intrapelvic contents are partially obscured by severity of artifact created by left hip arthroplasty. There is a small volume of rim-enhancing loculated fluid within the cul-de-sac. A thickened segment of sigmoid colon within the lower left hemipelvis, axial image 120 with associated inflamed diverticula noted. There is moderate inflammation of the adjacent fat and changes consistent with microperforation, image 2018. This is also noted on coronal image 23 with tiny extraluminal gas bubbles present. No obvious gas within the urinary bladder lumen. Mild secondary cystitis may be present. Uterus and ovaries are atrophic. The appendix may be surgically absent. Bowel pattern does not appear to be obstructive. Multilevel thoracic and lumbar spondylitic/facet arthritic changes appear moderate to severe. L3 vertebral body hemangioma noted. Grade 1 anterolisthesis of L5 on S1 from chronic facet disease. Lumbar disc space narrowing is most apparent at L4-L5. Multilevel lumbar canal stenosis with slight lower lumbar levocurvature noted. Arthritic changes about the right hip more so than both SI joints noted. Bone islands about the right sacrum are stable. IMPRESSION: 1. Acute mid sigmoid diverticulitis with moderate surrounding inflammatory changes. Tiny extraluminal gas bubbles within the inflammation related to microperforation. 2. Mild secondary cystitis secondary to the diverticulitis noted. No gas bubbles within urinary bladder lumen. 3. Small volume of fluid within the cul-de-sac demonstrates mild rim enhancement and may be superinfected without contrast. 4. Similar background global atrophic changes of the kidneys and pancreas. There is a small cyst within the pancreatic body, 10 mm unchanged. Bilateral cortical and renal sinus cysts noted. 5. 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 6. Prior left hip arthroplasty. Electronically authenticated by: LUZ DAHL Date: 2022-04-04 12:09 Normal [facility]19 SARS-CoV-2 (COVID-19) RNA NELLIE+probe Ql (Unsp spec) Not detected Normal NOT DETECTED [facility] Comment on above: Result Comment: When diagnostic testing is negative, the possibility of a false negative should be considered in the context of a patient's recent exposures and the presence of clinical signs and symptoms consistent with SARS-CoV-2. This test is not yet approved or cleared by the [place] FDA. When there are no FDA-approved or cleared tests available, and other criteria are met, FDA can make tests available under an emergency access mechanism called an Emergency Use Authorization (EUA). The EUA for this test is supported by the [place] of Health and Human Service's declaration that circumstances exist to justify the emergency use of in vitro diagnostics for the detection and/or diagnosis of the virus that causes COVID-19. This EUA will remain in effect for the duration of the COVID-19 declaration justifying emergency of IVDs, unless it is terminated or revoked by the FDA (after which the test may no longer be used). Performed By: #### L ACT #### [facility] [address] [address] [address] Errol MORALES URINE PROFILEon 07-17-202 2 Bilirubin Ql (U) Negative Normal NEGATIVE [facility] Comment on above: Performed By: #### U MICRO, ERUR #### [facility] [address] [address] [address] Errol Flannery Clarity (U) SL CLOUDY Abnormal CLEAR [facility] Comment on above: Performed By: #### U MICRO, ERUR #### [facility] [address] [address] [address] Errol Flannery Color (U) YELLOW Normal YELLOW [facility] Comment on above: Performed By: #### U MICRO, ERUR #### [facility] [address] [place] [address] Dr. Errol Flannery ERUAHD A micrscopic examination will be performed if indicated. Normal [facility] Comment on above: Performed By: #### U MICRO, ERUR #### [facility] [address] [place] [address] Dr. Errol Flannery Glucose Ql (U) Negative Normal NEGATIVE [facility] Comment on above: Performed By: #### U MICRO, ERUR #### [facility] [address] [place] [address] Dr. rErol Flannery Hemoglobin Ql (U) TRACE-INTACT Abnormal NEGATIVE [facility] Comment on above: Performed By: #### U MICRO, ERUR #### [facility] [address] [place] [address] Dr. Errol Flannery Ketones Ql (U) Negative Normal NEGATIVE [facility] Comment on above: Performed By: #### U MICRO, ERUR #### [facility] [address] [address] [address] Errol Flannery LEUKOCYTES TRACE Abnormal NEGATIVE [facility] Comment on above: Performed By: #### U MICRO, ERUR #### [facility] [address] [place] [address] Dr. Errol Flannery Nitrite Ql (U) Negative Normal NEGATIVE [facility] Comment on above: Performed By: #### U MICRO, ERUR #### [facility] [address] [place] [address] Dr. Errol Flannery pH (U) 8.0 [pH] Normal 5-9 [facility] Comment on above: Performed By: #### U MICRO, ERUR #### [facility] [address] [address] [address] Errol Flannery SPEC GRAVITY 1.010 Normal 1.005-<=1.025 [facility] Comment on above: Performed By: #### U MICRO, ERUR #### [facility] [address] [place] [address] Dr. Errol Flannery UA PROTEIN Negative Normal NEGATIVE/ TRACE [facility] Comment on above: Performed By: #### U MICRO, ERUR #### [facility] [address] [address] [address] Errol Flannery UR MICRO IND INDICATED Normal [facility] Comment on above: Performed By: #### U MICRO, ERUR #### [facility] [address] [place] [address] Dr. Errol Flannery Urobilinogen Qn (U) 0.2 {Jordyn'U}/dL Normal 0.2 - 1. 0 [facility] Comment on above: Performed By: #### U MICRO, ERUR #### [facility] [address] [place] [address] Dr. Errol Flannery LACTATE/LACTIC ACIDon 2021 Lactate [Moles/Vol] 1.3 mmol/L Normal 0.4-1.9 [facility] Comment on above: Performed By: #### L ACT ####[facility] [address] [address]Dr. Errol Flannery PROF 14(COMP METB)on 022 Albumin [Mass/Vol] 3.3 g/dL Critically low 3.4-5.0 [facility] Comment on above: Performed By: #### C BC #### [facility] [address] [place] [address] Dr. Errol Flannery Albumin/Globulin [Mass ratio] 0.9 {ratio} Normal [facility] Comment on above: Performed By: #### C BC #### [facility] [address] [place] [address] Dr. Errol Flannery ALP [Catalytic activity/Vol] 109 U/L Normal 46-116 [facility] Comment on above: Performed By: #### C BC #### [facility] [address] [place] [address] Dr. Errol Flannery ALT [Catalytic activity/Vol] 40 U/L Normal 14-59 [facility] Comment on above: Performed By: #### C BC #### [facility] [address] [address] [address] Errol Flannery Anion gap [Moles/Vol] 10.4 mmol/L Normal [facility] Comment on above: Performed By: #### C BC #### [facility] [address] [place] [address] Dr. Errol Flannery AST [Catalytic activity/Vol] 34 U/L Normal 15-37 [facility] Comment on above: Performed By: #### C BC #### [facility] [address] [place] [address] Dr. Errol Flannery Bilirubin [Mass/Vol] 0.8 mg/dL Normal 0.2-1.0 [facility] Comment on above: Performed By: #### C BC #### [facility] [address] [place] [address] Dr. Errol Flannery Calcium [Mass/Vol] 8.8 mg/dL Normal 8.5-10.1 [facility] Comment on above: Performed By: #### C BC #### [facility] [address] [place] [address] Dr. Errol Flannery Chloride [Moles/Vol] 101 mmol/L Normal 98-107 [facility] [facility] Comment on above: Performed By: #### C BC #### [facility] [address] [address] [address] Errol Flannery CO2 [Moles/Vol] 30.1 mmol/L Normal 21.0-32.0 [facility] Comment on above: Performed By: #### C BC #### [facility] [address] [place] [address] Dr. Errol Flannery Creatinine [Mass/Vol] 1.36 mg/dL Critically high 0.55-1.02 [facility] Comment on above: Performed By: #### C BC #### [facility] [address] [address] [address] Errol Flannery EGFR-AF [place] 45 mL/min/1.73m2 Critically low >=60 [facility] Comment on above: Performed By: #### C BC #### [facility] [address] [address] [address] Errol Flannery EGFR-NON AF [place] 37 mL/min/1.73m2 Critically low >=60 [facility] Comment on above: Performed By: #### C BC #### [facility] [address] [address] [address] Errol Flannery Globulin (S) [Mass/Vol] 3.6 g/dL Normal [facility] Comment on above: Performed By: #### C BC #### [facility] [address] [address] [address] Errol Flannery Glucose [Mass/Vol] 107 mg/dL Critically high 74-106 [facility] Comment on above: Performed By: #### C BC #### [facility] [address] [address] [address] Errol Flannery Potassium [Moles/Vol] 3.5 mmol/L Normal 3.5-5.1 [facility] Comment on above: Performed By: #### C BC #### [facility] [address] [address] [address] Errol Flannery Protein [Mass/Vol] 6.9 g/dL Normal 6.4-8.2 [facility] Comment on above: Performed By: #### C BC #### [facility] [address] [address] [address] Errol Flannery Sodium [Moles/Vol] 138 mmol/L Normal 136-145 [facility] Comment on above: Performed By: #### C BC #### [facility] [address] [address] [address] Errol Flannery Urea nitrogen [Mass/Vol] 18.0 mg/dL Normal 7.0-18.0 [facility] Comment on above: Performed By: #### C BC #### [facility] [address] [address] [address] Errol Flannery Urea nitrogen/Creatinine [Mass ratio] 13.2 mg/mg Normal [facility] Comment on above: Performed By: #### C BC #### [facility] [address] [address] [address] Errol Flannery URINE MICROSCOPIC ONLYon BACTERIA NONE SEEN Normal NONE SEEN The [facility] Comment on above: Performed By: #### U MICRO, ERUR ####[facility] [address] [address]Dr. Errol Flannery Bacteria identified Cx Nom (U) NOT INDICATED Normal [facility] Comment on above: Performed By: #### U MICRO, ERUR ####[facility] [address] [address]Dr. Errol Flannery CAST NONE SEEN Normal NONE SEEN The [facility] Comment on above: Performed By: #### U MICRO, ERUR ####[facility] [address] [address]Dr. Errol Flannery Crystals LM Nom (Urine sed) NONE SEEN Normal NONE SEEN The [facility] Comment on above: Performed By: #### U MICRO, ERUR ####[facility] [address] [address]Dr. Errol Flannery Epithelial cells LM Ql (Urine sed) MANY Abnormal NONE SEEN /RARE [facility] Comment on above: Performed By: #### U MICRO, ERUR ####[facility] [address] [address]Dr. Errol Flannery MUCOUS NONE SEEN Normal NONE SEEN The [facility] Comment on above: Performed By: #### U MICRO, ERUR ####[facility] [address] [place], [place] [address]Dr. Errol Flannery RBC 0-2 Normal 0-2 [facility] Comment on above: Performed By: #### U MICRO, ERUR ####[facility] [address] [place], [place] [address]DrElana Flannery WBC 0-2 Abnormal NONE SEEN The [facility] Comment on above: Performed By: #### U MICRO, ERUR ####[facility] [address] [id number] Flannery METHYLMALONIC ACID (MMA)on 0 01-07-2022 Methylmalonic Acid, Serum 252 nmol/L Normal 0-378 [facility] Comment on above: Performed By: #### M MA2 ####[facility] [address] [id number] Flannery TSHon 12-30-2021 TSH 2.969 uIU/mL Normal 0.470-4.680 [facility] Comment on above: Performed By: #### T SH ####[facility] [address] [id number] Flannery TSH RANGE SEE BELOW Normal [facility] Comment on above: Result Comment: <0.3 4 UIU/ml HYPERTHYROID 0.34-5.60 UIU/ml EUTHYROID >5.60 UIU/ml HYPOTHYROID Performed By: #### T SH ####[facility] [address] [id number] Flannery VIT B12 AND FOLATEon 022 Cobalamin (Vitamin B12) [Mass/Vol] 466.0 pg/mL Normal 239.0-931.0 [facility] Comment on above: Performed By: #### B 12FOL #### [facility] [id number] Errol Flannery FOLATE >20.00 Normal >=2.76 [facility] Comment on above: Performed By: #### B 12FOL #### [facility] [id number] Errol Flannery [facility] CARDIAC STRESS/REST INJE CTIONon 09-22-2021 [facility] CARDIAC STRESS/REST INJECTION Patient Name: SHAYNA GARCIA STUDY: MYOCARDIAL PERFUSION STRESS TEST WITH LEXISCAN Performing facility: [facility], [address] [place] [address], [address] [address] [facility] Provider: Keith Claire MD, [facility] PCP: Dr. Martha AVINA Supervising provider: Renaldo Jennings MD, [facility] INDICATION: Chest Pain; HTN Chest Pain; Chest Pain; HISTORY: Gender: F; Age: 86 y/o ; Height: 0 cm; Weight: 0 kg. HTN; Chest Pain; Denies smoking. COMPARISON: No comparison. ACCESSION NUMBER(S): [id number]; [id number]; [id number] ORDERING CLINICIAN: VASQUEZ CLAIRE TECHNIQUE: ONE DAY protocol. Stress injection: Date:09/22/21, 31.1 mCi of Myoview IV 20 seconds after rapid injection of Lexiscan. Rest injection: Date: 09/22/21, 10.7 mCi of Myoview IV at rest. The patient had a rapid injection of 0.4 mg of Lexiscan IV over 10 seconds. Imaging was performed by gated tomographic technique. Reason for Lexiscan: WALKS WITH CANE STRESS TEST DATA: Resting heart rate was 68 BPM. Resting blood pressure was 164/80 mmHg. Peak blood pressure was 132/86 mmHg. Peak heart rate was 93 BPM. TEST TERMINATED DUE TO: Protocol completed FINDINGS: STRESS TEST RESULTS: Resting electrocardiogram revealed normal sinus rhythm. There were no significant ischemic ECG changes or dysrhythmias. The patient did not have chest pains/symptoms during procedure. There was a normal recovery phase. IMAGING RESULTS: Image quality was good. Rest and stress tomographic images were reviewed and revealed normal perfusion without evidence of ischemia, myocardial infarction, or left ventricular dilatation with stress. Overall left ventricular systolic function appeared to be normal without regional wall motion abnormalities. Ejection fraction was 74%. TID is 1.04 and is normal. There was no evidence of attenuation artifact. IMPRESSION: Normal Lexiscan Myoview cardiac perfusion stress test. No evidence of ischemia or myocardial infarction by perfusion imaging. Normal left ventricular systolic function, ejection fraction 74%. No previous studies are available for comparison. Electronically signed by: RENALDO JENNINGS MD Normal [facility] No Panel Informationon 09-22 Normal [facility] 250 DO Work Phone: Falls Risk Screeningon 08-17 Fall risk assessment b) One or more falls in the last year [facility] [facility] 250 DO Work Phone: Tobacco use status [facility] b) No [facility] 250 DO Work Phone: Office Visit (Cardiology)on 08-17-2021 Follow-up visit Diagnoses/Problems Assessed Essential hypertension, benign (401.1) (I10) Class 1 obesity with body mass index (BMI) of 31.0 to 31.9 in adult (278.00,V85.31) (E66.9,Z68.31) Never a smoker Chest discomfort (786.59) (R07.89) 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 : chest discomfort Class 1 obesity with body mass index (BMI) of 31.0 to 31.9 in adult Healthy Weight Tips; Status:Complete; Done: 17Aug2021 SocHx: Never a smoker Tobacco Use Screening; Status:Complete; Done: 17Aug2021 Patient Instructions By signing my name below, I, Rajinder Reynolds LPN, attest that this documentation has been prepared under the direction and in the presence of Dr. Vasquez Claire MD. Please bring all medicines, vitamins, and herbal supplements with you when you come to the office. Prescriptions will not be filled unless you are compliant with your follow up appointments or have a follow up appointment scheduled as per instruction of your physician. Refills should be requested at the time of your visit. Fall Prevention Education Given Follow up after testing completed Chief Complaint SHAYNA GARCIA is being seen for an annual follow-up of. History of Present Illness Patient returns in follow-up of problems as noted. In the interim it appears she has been normotensive and doing well without any orthostatic symptoms. She does, though, describe new onset angina. She describes retrosternal chest heaviness provoked with activity and/or stress and relieved with rest and/or nitroglycerin. Advised her that it is possible she is experiencing symptoms of coronary disease with which she has never been diagnosed. She is relatively low risk in regards to risk factors and because of this I recommended, prior to an aggressive and/or invasive approach, that we undertake stress testing. She is of advanced age and not able to walk on a treadmill because of weakness, balance problems and also blindness. Because of this a pharmacologic stress test with isotope imaging will be recommended and we will reconvene after stress test results become available and make some recommendations. She was advised if she were to have chest discomfort unrelenting that she should go to the emergency department Surgical History Problems History of Appendectomy History of Cholecystectomy Denied: History of Complete colonoscopy History of Excision melanoma History of Hip surgery Past Medical History Problems History of Encounter for immunization (V03.89) (Z23) Resolved Date: 17 Aug 2021 Current Meds Medication NameInstruction Magnesium 500 MG CAPSTAKE 1 CAPSULE Daily Multi Vitamin Oral TabletTAKE 1 TABLET DAILY. Vision Formula Eye Health Oral CapsuleTAKE 1 CAPSULE Daily Allergies Medication No Known Drug Allergies Recorded By: Ally Marmolejo; 06/04/2021 2:42:35 PM Social History Problems Never a smoker No alcohol use No caffeine use No illicit drug use Review of Systems Constitutional: not feeling tired. Eyes: no eyesight problems. ENT: no hearing loss and no nosebleeds. Cardiovascular: no intermittent leg claudication and as noted in HPI. Respiratory: no chronic cough and no shortness of breath. Gastrointestinal: no change in bowel habits and no blood in stools. Genitourinary: no urinary frequency. Skin: no skin rashes. Neurological: no seizures and no frequent falls. Psychiatric: no depression and not suicidal. All other systems have been reviewed and are negative for complaint. Vitals Vital Signs Recorded: 17Aug2021 08:58AM Heart Rate73, L Brachial Artery Ouenphqj300, RUE, Sitting Snixdstgy07, RUE, Sitting Height5 ft Rohgff201 lb BMI Vfyydaxdqm98.25 kg/m2 BSA Calculated1.7 Tobacco Useb) No Fall Screeningb) One or more falls in the last year Physical Exam Constitutional: alert and in no acute distress. Eyes: no erythema, swelling or discharge from the eye . Neck: neck is supple, symmetric, trachea midline, no masses and no thyromegaly . Pulmonary: no increased work of breathing or signs of respiratory distress and lungs clear to auscultation. Cardiovascular: carotid pulses 2+ bilaterally with no bruit , JVP was normal, no thrills , regular rhythm, normal S1 and S2, no murmurs , pedal pulses 2+ bilaterally and no edema . Abdomen: abdomen non-tender, no masses and no hepatomegaly . Skin: skin warm and dry, normal skin turgor . Psychiatric judgment and insight is normal and oriented to person, place and time . Signatures Electronically signed by : Vasquez Claire MD; Aug 17 2021 12:43PM EST (Author) Normal [facility] XR hip LT min 2V(w/wo pelvis )*on 01-17-2019 XR hip LT min 2V(w/wo pelvis)* [facility] [place] [address] XRay Report Signed Patient: Shayna Garcia MR#: [id number] 431 : 1935 Acct:[id number] Age/Sex: 83 / F ADM Date: 01/17/19 Loc: [facility] Room: Type: [facility] Attending Dr: Daniel Domínguez MD Ordering Provider: Daniel Domínguez MD Date of Service: 01/17/19 XR/XR hip LT min 2V(w/wo pelvis)*: Degenerative joint disease of left hip Copies to: Daniel Domínguez MD XR hip LT min 2V(w/wo pelvis)* 01/17/2019 1:40 PM SIGNS AND SYMPTOMS: Follow-up total left hip arthroplasty, follow-up PROTOCOL: Frontal and frog-leg views of the left hip COMPARISON: 01/17/2017 FINDINGS: Total left hip arthroplasty hardware is present. No change in alignment. No hardware complication. No fracture or dislocation. The visualized left hemithorax is grossly intact. XR/XR hip LT min 2V(w/wo pelvis)* IMPRESSION: Unchanged total left hip arthroplasty. No fracture or dislocation. No hardware complication. Impression dictated by: Zechariah Arvizu M.D.01/17/2019 3:28 PM Dictation Location: [address] [address] Transcribed By: [facility] 01/17/19 1528 Dictated By: Zechariah Arvizu II, MD 01/17/19 1527 Signed By: 01/17/19 1528 [facility] Vital Signs Date Time Vital Sign Value Performing Clinician Facility 08-23-2023 11:45-0500 Body height 165.1 cm Moustapha Daniela Other [employer] Other 08-23-2023 11:45-0500 Body mass index (BMI) [Ratio] 24.63 kg/m2 Moustapha Ball Other [employer] Other 08-23-2023 11:45-0500 Body weight 67.13 kg Moustapha Ball Other [employer] Other 08-23-2023 11:45-0500 Diastolic blood pressure 81 mm[Hg] Moustapha Ball Other [employer] Other 08-23-2023 11:45-0500 Respiratory rate 12 /min Moustapha Ball Other [employer] Other 08-23-2023 11:45-0500 Systolic blood pressure 134 mm[Hg] Moustapha Ball Other [employer] Other 08-17-2023 09:00-0500 Body height 165.1 cm Moustapha Ball Other [employer] Other 08-17-2023 09:00-0500 Body mass index (BMI) [Ratio] 25.16 kg/m2 Moustapha Ball Other [employer] Other 08-17-2023 09:00-0500 Body weight 68.58 kg Moustapha Ball Other [employer] Other 08-17-2023 09:00-0500 Diastolic blood pressure 93 mm[Hg] Moustapha Ball Other [employer] Other 08-17-2023 09:00-0500 Respiratory rate 12 /min Moustapha Ball Other [employer] Other 08-17-2023 09:00-0500 Systolic blood pressure 158 mm[Hg] Moustapha Ball Other [employer] Other 12-21-2022 11:30-0400 Body height 165.1 cm Moustapha Ball Other [employer] Other 12-21-2022 11:30-0400 Body mass index (BMI) [Ratio] 25.19 kg/m2 Moustapha Ball Other [employer] Other 12-21-2022 11:30-0400 Body weight 68.68 kg Moustapha Ball Other [employer] Other 12-21-2022 11:30-0400 Diastolic blood pressure Moustapha Ball Other [employer] Other 12-21-2022 11:30-0400 Respiratory rate 16 /min Moustapha Ball Other [employer] Other 12-21-2022 11:30-0400 Systolic blood pressure 112 mm[Hg] Moustapha Ball Other [employer] Other 11-24-2022 09:27-0500 Blood Pressure Location KEIKO PIZANORY [facility] 11-24-2022 09:27-0500 Diastolic blood pressure 86 mm[Hg] KEIKO PRANAV [facility] 11-24-2022 09:27-0500 Heart rate 70 /min KEIKO PRANAV [facility] 11-24-2022 09:27-0500 Systolic blood pressure 127 mm[Hg] KEIKO PRANAV [facility] 11-23-2022 10:00-0500 Body height 165.1 cm Margarito Harvey Other [facility] [employer] Other 11-23-2022 10:00-0500 Body mass index (BMI) [Ratio] 31.61 kg/m2 Margarito Bruceangelo Other [facility] [employer] Other 11-23-2022 10:00-0500 Body weight 86.18 kg Margarito Harvey Other [facility] [employer] Other 11-23-2022 10:00-0500 Diastolic blood pressure 96 mm[Hg] Margarito Ditty Other [facility] [employer] Other 11-23-2022 10:00-0500 Systolic blood pressure 152 mm[Hg] Margarito Ditty Other [facility] [employer] Other 09-22-2022 08:22-0500 Blood Pressure Location Cassidy Lue [facility] 09-22-2022 08:22-0500 Diastolic blood pressure 83 mm[Hg] Cassidy Lue [facility] 09-22-2022 08:22-0500 Heart rate 70 /min Cassidy Lue [facility] 09-22-2022 08:22-0500 Respiratory rate 16 /min Cassidy Lue [facility] 09-22-2022 08:22-0500 Systolic blood pressure 130 mm[Hg] Cassidy Lue [facility] 09-22-2021 12:00-0500 74 1 Moustapha Avina Work Phone: [facility] [place] Work Phone: Comment on above: [id number] 08-17-2021 08:58-0500 Body height 152.4 cm Moustapha Beth Ball Work Phone: [facility] 250 DO Work Phone: 08-17-2021 08:58-0500 Body mass index (BMI) [Ratio] 31.25 kg/m2 Moustapha Beth Ball Work Phone: [facility] 250 DO Work Phone: 08-17-2021 08:58-0500 Body surface area Derived from formula 1.7 m2 Moustapha Beth Ball Work Phone: [facility] 250 DO Work Phone: 08-17-2021 08:58-0500 Body weight 72.58 kg Moustapha Beth Ball Work Phone: [facility] 250 DO Work Phone: 08-17-2021 08:58-0500 Diastolic blood pressure 84 mm[Hg] Moustapha Avina Work Phone: [facility] 250 DO Work Phone: 08-17-2021 08:58-0500 Heart rate 73 /min Moustapha Beth Ball Work Phone: [facility] 250 DO Work Phone: 08-17-2021 08:58-0500 Systolic blood pressure 136 mm[Hg] Moustapha Beth Ball Work Phone: [facility] 250 DO Work Phone: Encounters Encounter Date Encounter Type Care Provider Facility Start: 10-17-2023 End: 10-17-2023 ambulatory Moustapha Avina Other [facility] [employer] Other Start: 10-17-2023 Telephone encounter [facility] Start: 08-25-2023 End: 08-25-2023 ambulatory Moustapha Avina Other [employer] Other Start: 08-25-2023 Telephone encounter Moustapha Avina [facility] Start: 08-23-2023 End: 08-23-2023 ambulatory Moustapha Avina Other [employer] Other Start: 08-23-2023 Office outpatient visit 15 minutes Moustapha Ball [facility] Start: 08-22-2023 End: 08-22-2023 ambulatory Moustapha Avina Other [employer] Other Start: 08-22-2023 Telephone encounter Moustapha ANGUIANO [facility] Start: 08-17-2023 End: 08-17-2023 ambulatory Moustapha Avina Other [employer] Other Start: 08-17-2023 Patient encounter procedure Moustapha Avina [facility] Start: 07-10-2023 End: 07-10-2023 ambulatory Moustapha Avina Other [employer] Other Start: 07-10-2023 Telephone encounter Moustapha ANGUIANO [facility] Start: 05-09-2023 End: 05-09-2023 ambulatory Moustapha Avina Other [employer] Other Start: 05-09-2023 Telephone encounter Moustapha Avina [facility] Start: 05-04-2023 End: 05-05-2023 ambulatory Cassidy Parks Facility: Telephone Start: 01-25-2023 End: 01-25-2023 ambulatory Moustapha Avina Other [employer] Other Start: 01-25-2023 Telephone encounter Moustapha ANGUIANO [facility] [facility] Start: 12-21-2022 End: 12-21-2022 ambulatory Moustapha Avina Other [employer] Other Start: 12-21-2022 Office outpatient visit 25 minutes Moustapha Avina [facility] Start: 11-24-2022 End: 11-25-2022 ambulatory KEIKO ROCK Facility:[facility] Start: 11-24-2022 End: 11-24-2022 Patient encounter procedure KEIKO ROCK [facility] Start: 11-23-2022 End: 11-23-2022 ambulatory Margarito Harvey Other [employer] Other Start: 11-23-2022 [facility] visit new patient Margarito Harvey [facility] Start: 11-11-2022 End: 11-11-2022 ambulatory Moustapha Avina Other [employer] Other Start: 11-11-2022 Telephone encounter Moustapha Avina [facility] Start: 10-15-2022 End: 10-16-2022 ambulatory CASSIDY PARKS . Facility:[facility] Start: 09-22-2022 End: 09-22-2022 Lab Drop off Cassidy Parks [facility] Start: 09-22-2022 End: 09-22-2022 Patient encounter procedure Cassidy Parks [facility] Start: 06-08-2022 End: 06-09-[address] MOUSTAPHA AVINA Facility:[facility] Start: 05-21-2022 End: 05-22-[address] MOUSTAPHA AVINA Facility:[facility] Start: 04-28-2022 End: 04-29-[address] MOUSTAPHA AVINA Facility:[facility] Start: 04-06-2022 Adult health examination Moustapha Avina Other [employer] Other Start: 04-04-2022 End: 04-12-2022 Evaluation and management of inpatient DR NAEL SULLIVAN Facility:[facility] Start: 12-30-2021 End: 12-31-[address] ALEXANDER URIBE Facility:[facility] Start: 11-09-2021 End: 11-10-[address] MOUSTAPHA AVINA Facility:[facility] Start: 09-24-2021 Chart Update Moustapha Whyte l Work Phone: [facility] 250 DO Work Phone: Start: 09-22-2021 Patient encounter procedure Moustapha Avina Work Phone: [facility] Work Phone: Start: 08-17-2021 Office outpatient visit 25 minutes Moustapha Avina Work Phone: [facility] 250 DO Work Phone: Start: 01-17-2019 End: 01-17-2019 Patient encounter procedure Moustapha Avina Facility:[facility] Procedures Date Procedure Procedure Detail Performing Clinician Start: 03-16-2017 End: 01-01-2020 Screening for osteoporosis Moustapha Avina Other Start: 02-25-2016 End: 01-01-2020 Screening for malignant neoplasm of colon Moustapha Avina Other Appendectomy Moustapha Avina Work Phone: Appendectomy Cassidy Lue bilat hip OA Cassidy Lue Cholecystectomy Moustapha E B all Work Phone: Cholecystectomy Cassidy Lue degenerative disc di sease; DJD Cassidy Lue Depression screening Benjami n Ball Other Excision of melanoma Benjami n E Ball Work Phone: Excision of melanoma Cassidy L ue H/O: artificial joint Benjam in Ball Other End: 06-24-2021 Laboratory test result abnormal Moustapha Avina Other lumbar stenosis Cassidy Lue Operative procedure on hip B ernesto Avina Work Phone: NEGATED: Highlighted row has not occurred! Total colonoscopy Moustapha Avina Work Phone: Plan of Treatment Date Care Activity Detail Author Start: 11-22-2023 ambulatory Ambulatory Facility:[facility] Start: 10-14-2021 FUV, Provider: Vasquez Claire, Status: Pen, Time: 12:50 PM FUV, Provider: Vasquez Claire, Status: Pen, Time: 12:50 [facility] Work Phone: Start: 09-22-2021 STRESS NUC, Provider : SHARYN HHVI NUCLEAR 01,[id number], Status: Pen, Time: 12:00 PM STRESS NUC, Provider: SHARYN HHVI NUCLEAR 01,[id number], Status: Pen, Time: 12:00 PM [facility] Work [facility]: Immunizations Immunization Date Immunization Notes Care Provider Ezekiel yang 08-17-2023 influenza, high dose seasonal, preservative-free Moustapha Avina Other [employer] Other 07-17-2021 influenza virus vaccine, unspecified formulation KEIKO PRANAV [facility] 07-17-2021 influenza, high dose seasonal, preservative-free Moustapha Avina Work Phone: [facility] Work Phone: Comment on above: Series: 06-24-2021 influenza virus vaccine, split virus (incl. purified surface antigen) Moustapha Avina Other [employer] Other 03-13-2021 tetanus and diphther ia toxoids, adsorbed, preservative free, for adult use (5 Lf of tetanus toxoid and 2 Lf of diphtheria toxoid) Moustapha Avina Other [employer] Other 02-17-2021 pneumococcal polysaccharide vaccine, 23 valent Moustapha Avina Other [employer] Other 06-04-2020 influenza virus vaccine, split virus (incl. purified surface antigen) Moustapha Avina Other [employer] Other 06-04-2020 influenza virus vaccine, unspecified formulation KEIKO ROCK [facility] 06-04-2020 influenza, high dose seasonal, preservative-free Moustapha Avina Work Phone: [facility] 250 DO Work Phone: 02-15-2020 pneumococcal conjuga te vaccine, 13 valent Moustapha Avina Work Phone: [facility] 03-16-2017 diphtheria, tetanus toxoids and acellular pertussis vaccine, unspecified formulation Moustapha Daniela Other [employer] Other 01-17-2015 zoster vaccine, live Kaveh Avina Other [employer] Other Payers Date Payer Category Payer Self-pay 2011 Medicare [id number] 1959 Medicare [id number] 1959 Unknown [id number] 1934 Unknown [id number] 2.16.84 [id number] 1934 Unknown [id number] 2.16.84 [id number] 1934 Unknown [id number] 2.16.84 [id number] 1934 Unknown [id number] 2.16.84 [id number] 1934 Unknown [id number] 2.16.84 [id number] 1934 Unknown [id number] 2.16.84 [id number] 1934 Unknown [id number] 2.16.84 [id number] 1934 Unknown [id number] 2.16.8 [id number] 1934 Unknown [id number] 2.16.8 [id number] 1934 Unknown [id number] 2.16.8 [id number] Unknown [id number] 2.16.84 [id number] Unknown Social History Date Type Detail Facility No illicit drug use No illicit drug use [facility] 250 DO Work Phone: Start: 09-22-2022 Tobacco smoking status Never s moked tobacco (finding) [facility] Sex Assigned At Female [facility] Functional Status Date Assessment Result Facility 11-24-2022 Functional Status N/A [facility] 09-22-2022 Functional Status N/A [facility] Clinical Notes 11-09-2021 to 08-23-2023 Note Date & Type Note Facility 08-23-2023 Evaluation note Encounter Date Diagnosis Assessment Notes Aug, Acute diverticulitis (ICD-10 - K57.92) Patient is educated that diverticulitis: occurs when pouches form in the wall of the colon and become inflamed or infected. It can be very painful. Drink plenty of fluids, enough so that your urine is light yellow or clear like water. Stick to liquids or a bland diet (plain rice, bananas, dry toast or crackers, applesauce) until you is feeling better. Then you can return to regular foods and gradually increase the amount of fiber in your diet. Initiated antibiotics and instructed to update office in 2 days. If no improvement, CT abdomen Aug, Stage 3a chronic kidney disease (ICD-10 - N18.31) The patient is instructed on adequate control of hypertension and diabetes, if appropriate. They are also educated on the associated risks of NSAIDs and PPI use with kidney disease. They were instructed on adequate fluid balance and to avoid dehydration. [employer] Other 12-05-2023 History general Narrative - Reported* Type Description Date Medical History C. difficile colitis Medical History Cerebral amyloid angiopathy Medical History Left lower quadrant abdominal pa in Medical History Nataliia infection of flexural sk in Medical History Stage 3a chronic kidney disease Medical History Essential hypertension Medical History Aortic dilatation Medical History Weight loss Medical History Vascular dementia, u nspecified severity, without behavioral disturbance, psychotic disturbance, mood disturbance, and anxiety Medical History Left hip pain Medical History Fatty liver disease, nonalcoholi c Medical History Elevated liver transaminase leve l Medical History Delusional disorder Medical History Auditory hallucinations Medical History Body mass index (BMI) of 25.0 to 29.9 Medical History 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 Medical History Age-related osteopor osis without current pathological fracture Medical History Primary osteoarthritis of right knee Medical History History of total left hip arthro plasty Medical History Lumbar spondylosis Medical History Irritable bowel syndrome with co nstipation Medical History Gastroesophageal ref lux disease with esophagitis without hemorrhage Medical History Elevated blood press ure reading without diagnosis of hypertension Medical History Diverticulitis of la rge intestine with perforation and abscess without bleeding Medical History Tinnitus, bilateral Surgical History LTHA 2012 Surgical History Cholecystectomy 06/27/2012 Surgical History DIVERTICULITIS 2021 Hospitalization History see above [employer] Other 11-29-2023 Evaluation note* Encounter Date Diagnosis Assessment Notes Treatment Notes Treatment Clinical Notes Jul, Medicare annual wellness visit, subsequent (ICD-10 - Z00.00) Personalized health advice was given to the beneficiary including a written plan for screenings discussed and provided. Advanced care planning reviewed and/or information given as requested. Additional counseling was provided here today in regards to, [ ]. The above visit was performed by [ ], under direct supervision of [ ]. Document reviewed and amended by provider signed below. Jul, Essential hypertensi on (ICD-10 - I10) This patient is instructed to consume a healthy, low-fat, low-salt diet. They are also encouraged to continue exercise to achieve/maintain a normal BMI. Increase Lisinopril to 20mg daily. Monitor BP at home and update office in couple weeks. Jul, Stage 3a chronic kidney disease (ICD-10 - N18.31) The patient is instructed on adequate control of hypertension and diabetes, if appropriate. They are also educated on the associated risks of NSAIDs and PPI use with kidney disease. They were instructed on adequate fluid balance and to avoid dehydration. Jul, Fatty liver disease, nonalcoholic (ICD-10 - K76.0) Low fat, high protein diet. Ensure daily. Jul, Lumbar spondylosis (ICD-10 - M47.816) The patient is instructed to avoid bending, twisting or lifting. They are to use intermittent heat and ice as needed. They may schedule a massage. They may safely use Tylenol as needed. Jul, Primary osteoarthrit is of left hip (ICD-10 - M16.12) Fall precautions Jul, Gastroesophageal reflux disease with esophagitis without hemorrhage (ICD-10 - K21.00) Diet instructions: Smaller portions, avoid eating and laying flat, avoid eating or drinking prior to bedtime. Weight loss. Jul, Cerebral amyloid angiopathy (ICD-10 - I68.0) f/u Neurology. Avoid ASA and NSAIDs Jul, Auditory hallucinations (ICD-10 - R44.0) f/u Neurology Continue treatment for MCI Healthy diet, keep active Jul, MCI (mild cognitive impairment) (ICD-10 - G31.84) Family assistance w/ IADL. Living alone w/ M/W and family help. Jul, Unsteady gait (ICD-1 0 - R26.81) Fall precautions Cane or walker for stability Jul, Fatigue, unspecified type (ICD-10 - R53.83) Healthy diet, keep active. Ensure daily Check CBC, BS, Hepatic enzymes [employer] Other 11-29-2023 History general Narrative - Reported* Type Description Date Medical History C. difficile colitis Medical History Cerebral amyloid angiopathy Medical History Left lower quadrant abdominal pa in Medical History Nataliia infection of flexural sk in Medical History Stage 3a chronic kidney disease Medical History Essential hypertension Medical History Aortic dilatation Medical History Weight loss Medical History Vascular dementia, u nspecified severity, without behavioral disturbance, psychotic disturbance, mood disturbance, and anxiety Medical History Left hip pain Medical History Fatty liver disease, nonalcoholi c Medical History Elevated liver transaminase leve l Medical History Delusional disorder Medical History Auditory hallucinations Medical History Body mass index (BMI) of 25.0 to 29.9 Medical History 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 Medical History Age-related osteopor osis without current pathological fracture Medical History Primary osteoarthritis of right knee Medical History History of total left hip arthro plasty Medical History Lumbar spondylosis Medical History Irritable bowel syndrome with co nstipation Medical History Gastroesophageal ref lux disease with esophagitis without hemorrhage Medical History Elevated blood press ure reading without diagnosis of hypertension Medical History Diverticulitis of la rge intestine with perforation and abscess without bleeding Medical History Tinnitus, bilateral Surgical History LTHA 2012 Surgical History Cholecystectomy 06/27/2012 Surgical History DIVERTICULITIS 2021 Hospitalization History see above [employer] Other 10-25-2023 History general Narrative - Reported* Type Description Date Medical History C. difficile colitis Medical History Cerebral amyloid angiopathy Medical History Left lower quadrant abdominal pa in Medical History Nataliia infection of flexural sk in Medical History Stage 3a chronic kidney disease Medical History Essential hypertension Medical History Aortic dilatation Medical History Weight loss Medical History Vascular dementia, u nspecified severity, without behavioral disturbance, psychotic disturbance, mood disturbance, and anxiety Medical History Left hip pain Medical History Fatty liver disease, nonalcoholi c Medical History Elevated liver transaminase leve l Medical History Delusional disorder Medical History Auditory hallucinations Medical History Body mass index (BMI) of 25.0 to 29.9 Medical History 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 Medical History Age-related osteopor osis without current pathological fracture Medical History Primary osteoarthritis of right knee Medical History History of total left hip arthro plasty Medical History Lumbar spondylosis Medical History Irritable bowel syndrome with co nstipation Medical History Gastroesophageal ref lux disease with esophagitis without hemorrhage Medical History Elevated blood press ure reading without diagnosis of hypertension Medical History Diverticulitis of la rge intestine with perforation and abscess without bleeding Medical History Tinnitus, bilateral Surgical History LTHA 2012 Surgical History Cholecystectomy 06/27/2012 Surgical History DIVERTICULITIS 2021 Hospitalization History see above [employer] Other 08-21-2023 Evaluation note* Encounter Date Diagnosis Assessment Notes Treatment Notes Treatment Clinical Notes Apr, Acute cystitis without hematuria (ICD-10 - N30.00) [employer] Other 04-04-2023 Evaluation note* Encounter Date Diagnosis Assessment Notes Treatment Notes Treatment Clinical Notes Dec, Essential hypertensi on (ICD-10 - I10) This patient is instructed to consume a healthy, low-fat, low-salt diet. They are also encouraged to continue exercise to achieve/maintain a normal BMI. Dec, Stage 3a chronic kidney disease (ICD-10 - N18.31) The patient is instructed on adequate control of hypertension and diabetes, if appropriate. They are also educated on the associated risks of NSAIDs and PPI use with kidney disease. They were instructed on adequate fluid balance and to avoid dehydration. Dec, Fatty liver disease, nonalcoholic (ICD-10 - K76.0) Low fat diet, high protein diet. Monitor for now. Dec, Lumbar spondylosis (ICD-10 - M47.816) The patient is instructed to avoid bending, twisting or lifting. They are to use intermittent heat and ice as needed. They may schedule a massage. They may safely use Tylenol as needed. 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 Refer of home PT/OT Dec, Gastroesophageal reflux disease with esophagitis without hemorrhage (ICD-10 - K21.00) Diet instructions. Dec, Cerebral amyloid angiopathy (ICD-10 - I68.0) Contributes to cognitive impairment. f/u Neurology Dec, Auditory hallucinations (ICD-10 - R44.0) Stable w/ initiation of Aricept and Namenda. f/u Neurology Dec, MCI (mild cognitive impairment) (ICD-10 - G31.84) Requires assistance from family for all ADL/IADL. Dec, Unsteady gait (ICD-1 0 - R26.81) Uses assistive divice for MRADL. May improve stability and posture w/ walker. Referral for PT/OT Dec, Foreign body of righ t ear, initial encounter (ICD-10 - T16.1XXA) Referral to ENT to evaluate for FB in right [facility] [employer] Other 03-08-2023 Hospital Discharge instructions Patient Education 11/24/2022 12:52:44 Atrophic Vaginitis Atrophic Vaginitis Atrophic vaginitis is a condition in which the tissues that line the vagina become dry and thin. This condition is most common in women who have stopped having regular menstrual periods (are in menopause). This usually starts when a woman is 45 55 years old. That is the time when a woman's estrogenlevels begin to drop (decrease). Estrogen is a female hormone. It helps to keep the tissues of the vagina moist. It stimulates the vagina to produce a clear fluid that lubricates the vagina for sexual intercourse. This fluid also protects the vagina from infection. Lack of estrogen can cause the lining of the vagina to get thinnerand dryer. The vagina may also shrink in size. It may become less elastic. Atrophic vaginitis tendsto get worse over time as a woman's estrogen level drops. What are the causes? This condition is caused by the normal drop in estrogen that happens around the time of menopause. What increases the risk? Certain conditions or situations may lower a woman's estrogen level, leading to a higher risk for atrophic vaginitis. You are more likely to develop this condition if: You are taking medicines that block estrogen. You have had your ovaries removed. You are being treated for cancer with X-ray (radiation) or medicines (chemotherapy). You have given or are . You are older than age 50. You smoke. What are the signs or symptoms? Symptoms of this condition include: Pain, soreness, or bleeding during sexual intercourse (dyspareunia). Vaginal burning, irritation, or itching. Pain or bleeding when a speculum is used in a vaginal exam (pelvic exam). Having burning pain when passing urine. Vaginal discharge that is brown or yellow. In some cases, there are no symptoms. How is this diagnosed? This condition is diagnosed by taking a medical history and doing a physical exam. This will include a pelvic exam that checks the vaginal tissues. Though rare, you may also have other tests, including: A urine test. A test that checks the acid balance in your vagina (acid balance test). How is this treated? Treatment for this condition depends on how severe your symptoms are. Treatment may include: Using an bzfz-cyq-hlcrlwe vaginal lubricant before sex. Using a long-acting vaginal moisturizer. Using low-dose vaginal estrogen for moderate to severe symptoms that do not respond to other treatments. Options include creams, tablets, and inserts (vaginal rings). Before you use a vaginal estrogen, tell your health care provider if you have a history of: ?Breast cancer. ?Endometrial cancer. ?Blood clots. If you are not sexually active and your symptoms are very mild, you may not need treatment. Follow these instructions at home: Medicines Take nsrp-icg-smetjcd and prescription medicines only as told by your health care provider. Do not use herbal or alternative medicines unless your health care provider says that you can. Use jebe-cjg-ooiiila creams, lubricants, or moisturizers for dryness only as directed by your health care provider. General instructions If your atrophic vaginitis is caused by menopause, discuss all of your menopause symptoms and treatment options with your health care provider. Do not douche. Do not use products that can make your vagina dry. These include: ?Scented feminine sprays. ?Scented tampons. ?Scented soaps. Vaginal intercourse can help to improve blood flow and elasticity of vaginal tissue. If it hurts tohave sex, try using a lubricant or moisturizer just before having intercourse. Contact a health care provider if: Your discharge looks different than normal. Your vagina has an unusual smell. You have new symptoms. Your symptoms do not improve with treatment. Your symptoms get worse. Summary Atrophic vaginitis is a condition in which the tissues that line the vagina become dry and thin. Itis most common in women who have stopped having regular menstrual periods (are in menopause). Treatment options include using vaginal lubricants and low-dose vaginal estrogen. Contact a health care provider if your vagina has an unusual smell, or if your symptoms get worse or do not improve after treatment. This information is not intended to replace advice given to you by your health care provider. Make sure you discuss any questions you have with your health care provider. Document Released: 01/20/2016 Document Revised: 08/18/2018 Document Reviewed: 06/01/2018 [facility] Patient Education 2020 [employer]. Follow Up Care 09/22/2022 09:57:43 With:PRANAV HARRYKEIKO, URL Address: When:1 year [facility] Lianet 03-07-2023 Evaluation note* Encounter Date Diagnosis Assessment Notes Treatment Notes Treatment Clinical Notes Nov, Constipation (ICD-10 - K59.00) PATIENT TO START ON A MIRALAX DAILY, TITRATION DOSAGE. RTO IN 3 MONTHS [employer] Other 02-23-2023 Evaluation note* Encounter Date Diagnosis Assessment Notes Treatment Notes Treatment Clinical Notes Oct, Insomnia due to other mental disorder (ICD-10 - F51.05) Oct, Mental disorder, not otherwise specified (ICD-10 - F99) [employer] Other 01-04-2023 Hospital Discharge instructions Patient Education 09/22/2022 09:23:59 Urinary Tract Infection, Adult, Hyrz-po-Lttr Urinary Tract Infection, Adult A urinary tract infection (UTI) is an infection of any part of the urinary tract. The urinary tractincludes: The kidneys. The ureters. The bladder. The urethra. These organs make, store, and get rid of pee (urine) in the body. What are the causes? This is caused by germs (bacteria) in your genital area. These germs grow and cause swelling (inflammation) of your urinary tract. What increases the risk? You are more likely to develop this condition if: You have a small, thin tube (catheter) to drain pee. You cannot control when you pee or poop (incontinence). You are female, and: ?You use these methods to prevent : ?A medicine that kills sperm (spermicide). ?A device that blocks sperm (diaphragm). ?You have low levels of a female hormone (estrogen). ?You are . You have genes that add to your risk. You are sexually active. You take antibiotic medicines. You have trouble peeing because of: ?A prostate that is bigger than normal, if you are male. ?A blockage in the part of your body that drains pee from the bladder (urethra). ?A kidney stone. ?A nerve condition that affects your bladder (neurogenic bladder). ?Not getting enough to drink. ?Not peeing often enough. You have other conditions, such as: ?Diabetes. ?A weak disease-fighting system (immune system). ?Sickle cell disease. ?Gout. ?Injury of the spine. What are the signs or symptoms? Symptoms of this condition include: Needing to pee right away (urgently). Peeing often. Peeing small amounts often. Pain or burning when peeing. Blood in the pee. Pee that smells bad or not like normal. Trouble peeing. Pee that is cloudy. Fluid coming from the vagina, if you are female. Pain in the belly or lower back. Other symptoms include: Throwing up (vomiting). No urge to eat. Feeling mixed up (confused). Being tired and grouchy (irritable). A fever. Watery poop (diarrhea). How is this treated? This condition may be treated with: Antibiotic medicine. Other medicines. Drinking enough water. Follow these instructions at home: Medicines Take fosq-mij-aadraie and prescription medicines only as told by your doctor. If you were prescribed an antibiotic medicine, take it as told by your doctor. Do not stop taking it even if you start to feel better. General instructions Make sure you: ?Pee until your bladder is empty. ?Do not hold pee for a long time. ?Empty your bladder after sex. ?Wipe from front to back after pooping if you are a female. Use each tissue one time when you wipe. Drink enough fluid to keep your pee pale yellow. Keep all follow-up visits as told by your doctor. This is important. Contact a doctor if: You do not get better after 1 2 days. Your symptoms go away and then come back. Get help right away if: You have very bad back pain. You have very bad pain in your lower belly. You have a fever. You are sick to your stomach (nauseous). You are throwing up. Summary A urinary tract infection (UTI) is an infection of any part of the urinary tract. This condition is caused by germs in your genital area. There are many risk factors for a UTI. These include having a small, thin tube to drain pee and notbeing able to control when you pee or poop. Treatment includes antibiotic medicines for germs. Drink enough fluid to keep your pee pale yellow. This information is not intended to replace advice given to you by your health care provider. Make sure you discuss any questions you have with your health care provider. Document Released: 02/21/2009 Document Revised: 08/23/2019 Document Reviewed: 03/15/2019 [facility] Patient Education 2019 [employer]. Follow Up Care 08/24/2022 11:34:30 With:Charly TODD, Cassidy Hanson URL, URO Address: [address], [facility] [place] [address] [phone] When:Within 2 Month(s) [facility] 09-02-2022 NotePROCEDURE: XR GI UPPER AIR KUB DUAL CONTRAST, XR CINERADIOGRAPHY COMPARISON: None. HISTORY: Gastro-esophageal reflux disease with esophagitis TECHNIQUE: An air contrast upper gastrointestinal series was performed in the usual manner. Standard level fluoroscopic mode of operation utilized. 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 No visible obstruction, dilatation, reflux or hernia STOMACH: Normal. No obstruction, mass, or ulceration. Normal motility. DUODENUM:Normal. No ulceration or diverticulum. OTHER: Moderate degenerative changes of the spine. Left hip arthroplasty. Moderate to severe right hip osteoarthritis. IMPRESSION: Enlarged aorta deforming the esophagus No gastroesophageal reflux Electronically authenticated by: GENO PIZARRO Date: 2022-05-21 10:11[facility]09-02-2022 NotePROCEDURE: XR GI UPPER AIR KUB DUAL CONTRAST, XR CINERADIOGRAPHY COMPARISON: None. HISTORY: Gastro-esophageal reflux disease with esophagitis TECHNIQUE: An air contrast upper gastrointestinal series was performed in the usual manner. Standard level fluoroscopic mode of operation utilized. 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 No visible obstruction, dilatation, reflux or hernia STOMACH: Normal. No obstruction, mass, or ulceration. Normal motility. DUODENUM:Normal. No ulceration or diverticulum. OTHER: Moderate degenerative changes of the spine. Left hip arthroplasty. Moderate to severe right hip osteoarthritis. IMPRESSION: Enlarged aorta deforming the esophagus No gastroesophageal reflux Electronically authenticated by: GENO PIZARRO Date: 2022-05-21 10:11[facility]02-21-2022 NotePROCEDURE: XR HIP LT 2 3V W PELVIS HISTORY: Pain of left hip joint COMPARISON: XR hip left 04/02/2021 FINDINGS: BONES:Prior left hip replacement without evidence of hardware fracture or loosening. Moderate joint space narrowing and small periarticular degenerative osteophytes involving the right hip joint. Osseous growth from the anterior lateral aspect of the right iliac wing, likely an incidental tug lesion. Stable, chronic sclerotic lesion projecting over lateral aspect of the right ilium, possibly a bone island. SOFT TISSUES:No visible soft tissue swelling. EFFUSION:None visible. OTHER: Marked degenerative disc disease of the lumbar spine. IMPRESSION: 1. Left hip replacement without evidence of hardware failure or acute findings. 2. Moderate marked degenerative changes of right hip joint. 3. Multilevel marked degenerative changes of lumbar spine. Electronically authenticated by: ALEXANDER DUMONT Date: 2021-11-09 17:46[facility] Future Appointments Appointment Date:11/24/2022 08:45:00 AM Scheduled Provider:Cassidy Parks MD Location:[facility] Appointment Type:URO Office Visit [facility] evaluation + Plan note Future Appointments Appointment Date:11/24/2022 08:45:00 AM Scheduled Provider:Cassidy Parks MD Location:[facility] Appointment Type:URO Office Visit Diagnostic Tests Pending * U[facility] Future App[facility]ments Appointment Date:11/22/2023 08:30:00 AM Scheduled Provider:KEIKO ROCK PA-C Location:[facility] Appointment Type:URO Office Visit [facility] evalfiodyv noteNo PharminexNoMusicGremlin Other History general Narrative - Reported* Type Description Date Medical History C. difficile colitis Medical History Cerebral amyloid angiopathy Medical History Left lower quadrant abdominal pa in Medical History Nataliia infection of flexural sk in Medical History Stage 3a chronic kidney disease Medical History Essential hypertension Medical History Aortic dilatation Medical History Weight loss Medical History Vascular dementia, u nspecified severity, without behavioral disturbance, psychotic disturbance, mood disturbance, and anxiety Medical History Left hip pain Medical History Fatty liver disease, nonalcoholi c Medical History Elevated liver transaminase leve l Medical History Delusional disorder Medical History Auditory hallucinations Medical History Body mass index (BMI) of 25.0 to 29.9 Medical History 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 Medical History Age-related osteopor osis without current pathological fracture Medical History Primary osteoarthritis of right knee Medical History History of total left hip arthro plasty Medical History Lumbar spondylosis Medical History Irritable bowel syndrome with co nstipation Medical History Gastroesophageal ref lux disease with esophagitis without hemorrhage Medical History Elevated blood press ure reading without diagnosis of hypertension Medical History Diverticulitis of la rge intestine with perforation and abscess without bleeding Medical History Tinnitus, bilateral Surgical History LTHA 2012 Surgical History Cholecystectomy 06/27/2012 Surgical History DIVERTICULITIS 2021 Hospitalization History see above [employer] Other History of Present illness NarrativePatient returns in follow-up of problems as noted. In the interim it appears she has been normotensive and doing well without any orthostatic symptoms. She does, though, describe new onset angina. She describes retrosternal chest heaviness provoked with activity and/or stress and relieved with restand/or nitroglycerin. Advised her that it is possible she is experiencing symptoms of coronary disease with which she has never been diagnosed. She is relatively low risk in regards to risk factors and because of this I recommended, prior to an aggressive and/or invasive approach, that we undertakestress testing. She is of advanced age and not able to walk on a treadmill because of weakness, balance problems and also blindness. Because of this a pharmacologic stress test with isotope imaging will be recommended and we will reconvene after stress test results become available and make some recommendations. She was advised if she were to have chest discomfort unrelenting that [facility] Work Phone: Hospital course Narrative No data available for this section [facility] Hospital Discharge instructions No data available for this section [facility] No data available for this section [facility] reason for visit Narrativewants referral to home health care and [facility] [employer] Other Summary Purpose Family History No Family History Records FoundUnknown Family Member Name Dates Details Family history of diabetes m ellitus: Mother, Sister(V18.0, Z83.3) Status:Active Family history of cardiac di sorder: Mother, Sister(V17.49, Z82.49) Status:Active Family history of malignant neoplasm: Father, Sister(V16.9, Z80.9) Status:Active Unknown Family Member Name Dates Details Family history of malignant neoplasm: Father, Sister(V16.9, Z80.9) Status:Active Family history of cardiac di sorder: Mother, Sister(V17.49, Z82.49) Status:Active Family history of diabetes m ellitus: Mother, Sister(V18.0, Z83.3) Status:Active Unknown Family Member Name Dates Details Family history of malignant neoplasm: Father, Sister(V16.9, Z80.9) Status:Active Family history of cardiac di sorder: Mother, Sister(V17.49, Z82.49) Status:Active Family history of diabetes m ellitus: Mother, Sister(V18.0, Z83.3) Status:Active Advance Directives No Advanced Directives Records FoundNo Advanced Directives Records FoundNo Advanced Directives Records FoundNo Advanced Directives Records FoundNo Advanced Directives Records Found Chief Complaint SHAYNA GARCIA is being seen for an annual follow-up of. Reason for Referral Reason FB right external au ditory canal SNHL Diagnosis 1 Foreign body of righ t ear, initial encounter (T16.1XXA) Referral Organization [facility] Audra sebastian Referring Provider First Name Moustapha Referring Provider Last Name Daniela Referring Provider Specialty Internal Me dicine Referred Provider Tana Woodall Referred Provider Specialty Ear, Nose an d Throat Referral Priority Routine Additional Source Comments INFORMATION SOURCE (unrecogn ized section and content) DATE CREATED AUTHOR 02/01/2019 [facility] DATE CREATED AUTHOR AUTHOR'S ORGANIZ ATION 08/18/2021 [employer] DATE CREATED AUTHOR AUTHOR'S ORGANIZ ATION [facility] DATE CREATED AUTHOR AUTHOR'S ORGANIZ ATION 10/20/2022 [facility] DATE CREATED AUTHOR AUTHOR'S ORGANIZ ATION 11/08/2023 [facility] Patient Care team informatio n (unrecognized section and content) Personnel Name: MOUSTAPHA AVINA DO Address: Address: [address], [place], [place] [facility]- Name: Brandin [employer] Installer, Christel Name: Jah Yuanah Personnel Name: MOUSTAPHA AVINA DO Address: Address: [address], [place], [address] Name: Brandin [employer] Installer, Christel Name: Chasity Yuan Personnel Name: MOUSTAPHA AVINA DO Address: Address: [address], [place], [place] [facility]- Name: Brandin QuesaadDish Network Installer, Christel Name: Chasity Yuan REASON FOR VISIT (unrecogniz ed section and content) Lab resultsupdateDiverticuli tisWellnessAppt. neededUTIENT REFERRAL NOTEPatient here at her own request with complaints of constipation. FOR RECORDS PERTAINING TO PATIENTS WHO ARE OR HAVE BEEN ENROLLED IN A CHEMICAL DEPENDENCY/SUBSTANCEABUSE PROGRAM, SOME INFORMATION MAY BE OMITTED. This clinical summary was aggregated from multiple sources. Caution should be exercised in using it in the provision of clinical care. This summary normalizes information from multiple sources, and as a consequence, information in this document may materially change the coding, format and clinical context of patient data. In addition, data may be omitted in some cases. CLINICAL DECISIONS SHOULD BE BASED ON THE PRIMARY CLINICAL RECORDS. [facility] [employer] [facility]. provides no warranty or guarantee of the accuracy or completeness of information in this document.
--- NOTE | 2023-11-18 10:09 | US_ITS ---
The [address] [address] Patient Name: SHAYNA GARCIA MRN: [id number] date: 1935 Sex: F Assigned Patient Location: US Current Patient Location: US Accession/Order Number: [id number] Exam Date: 11/18/2023 10:14 Report Date: 11/18/2023 11:27 At the request of: KAYLA ROBERTS Procedure: US renal BI EXAMINATION: US renal BI HISTORY: recurrent uti N39.0 COMPARISON: 10/15/2022 TECHNIQUE: Ultrasound examination was performed of the bladder. FINDINGS: Right Kidney: Normal in contour. The cortex measures 0.8 cm. Multiple echogenic foci, nonobstructing nephrolithiasis. 1.1 cm echogenic focus right upper pole cortex Height: 5.5 cm Length: 9.6 cm Width: 5.0 cm Left Kidney: Normal in contour. The cortex measures 0.9 cm. Lower pole cortical anechoic echogenicity measuring 3.3 cm, simple cyst. Multiple echogenic foci, nonobstructing nephrolithiasis Height: 5.3 cm Length: 9.6 cm Width: 4.3 cm Urinary bladder measures 73 mL. 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 Electronically authenticated by: GENO PIZARRO Date: 11/18/2023 11:27
== END 2023-11-18 10:04 | disposition home or self-care (01) ==
LOC: US 10:03
PROVIDERS: PCP Internal Medicine; Visit Provider Urology
DX: N39.0 Urinary tract infection, site not specified (principal); N28.1 Cyst of kidney, acquired
CPT/HCPCS: 76775

== ENCOUNTER 2024-01-10 18:54 | Inpatient (IN) | payer MEDICARE, SELFPAY ==
[2024-01-10] VITALS (19 sets, daily range): BP systolic 134–143; BP diastolic 71–82; PULSE 80–86; TEMP 37–37.1; O2SAT 90–94; BMI 25.8; BMI 22.3
--- NOTE | 2024-01-10 19:17 | ECG_ITS ---
The 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
--- NOTE | 2024-01-10 19:17 | XR_ITS ---
The [place] [id number] Patient Name: SHAYNA GARCIA MRN: [id number] date: 1935 Sex: F Assigned Patient Location: ER Current Patient Location: ER Accession/Order Number: [id number] Exam Date: 01/10/2024 20:12 Report Date: 01/10/2024 20:58 At the request of: ANDRE SALGADO Procedure: XR lumbar spine 2-3V EXAM: XR lumbar spine 2-3V , 01/10/2024 HISTORY: fall COMPARISON: CT scan of the abdomen and pelvis from 10/15/2022 TECHNIQUE: X-ray of the lumbar spine 3 views. FINDINGS: Multilevel mild to moderate degenerative changes are seen throughout the lumbar spine. No obvious fracture or dislocation. Mild diffuse osteopenia. Mild atherosclerotic calcification of the abdominal aorta. XR/XR lumbar spine 2-3V IMPRESSION: No fracture or dislocation lumbar spine. Mild osteopenia and multilevel degenerative changes lumbar spine. Electronically authenticated by: CORONA JOSHI Date: 01/10/2024 20:58
--- NOTE | 2024-01-10 19:23 | ED_ITS ---
HPI HPI - General Adult General Chief complaint: Fall Stated complaint: fall Time Seen by Provider: 01/10/24 19:10 Source: patient Mode of arrival: ambulance Limitations: altered mental status History of Present Illness HPI narrative: 88-year female presents for evaluation after a fall. She reportedly fell tonight when she lost her balance. She seems to be complaining of lower back pain. She had fallen last week and had hit the left forehead and her right knee. Patient does not complain of pain to those areas. No shortness of breath chest pain or abdominal pain. Family states that she lives at home by herself and she has dementia. She has been a little bit more confused than typical and she was supposed to have a urine test done by her PCP. It has not yet been accomplished. She has not had a fever or vomiting. Related Data Allergies Allergy/AdvReac Type Severity Reaction Status Date / Time No Known Drug Allergies Allergy Verified 01/10/24 19:02 Opioid HPI Opioid Management Most Recent Opioid Data: No Data to Display Review of Systems ROS Narrative Not obtainable, dementia Exam Narrative Exam Narrative: Nurses note and vital signs reviewed and patient is not hypoxic. General: The patient appears in no apparent distress. Patient is resting comfortably on cart. Skin: Warm, dry, no pallor noted. There is no rash noted. Head: Normocephalic, yellow bruise present on the left forehead. No C-spine tenderness. Eye: Normal conjunctiva, no drainage Ears, Nose, Mouth, and Throat: oral mucosa is moist. Nares patent. Cardiovascular: Regular Rate and Rhythm Respiratory: Patient is in no distress, no accessory muscle use, lungs are clear to auscultation, no wheezing, rales or rhonchi Back: No bruise rash or abrasion to her back. She seems to have some mild diffuse tenderness in her lower back, nonfocal. Thoracic and cervical spines nontender. GI: Soft and Musculoskeletal: No bruise present in the right knee. Both hips both knees and both ankles are all nontender and have full range of motion. Arms also have full range of motion in all joints. Small skin abrasion present near the right elbow. Neurological: Awake and alert. She knows her name and where she is. When asked the year she told me [birth year] Psychiatric: Cooperative Constitutional Vital Signs, click to edit/add: Last Vital Signs Temp 98.6 F 01/10/24 18:57 Pulse 83 01/10/24 20:00 Resp 27 H 01/10/24 20:00 BP 143/82 H 01/10/24 19:00 Pulse Ox 91 L 01/10/24 20:00 O2 Del Method Room Air 01/10/24 19:53 Course Vital Signs Vital signs: Vital Signs Temperature 98.6 F 01/10/24 18:57 Pulse Rate 81 01/10/24 18:57 Respiratory Rate 16 01/10/24 18:57 Blood Pressure 143/82 H 01/10/24 18:57 Pulse Oximetry 93 L 01/10/24 18:57 Temperature 98.6 F 01/10/24 18:57 Pulse Rate 83 01/10/24 20:00 Respiratory Rate 27 H 01/10/24 20:00 Blood Pressure 143/82 H 01/10/24 19:00 Pulse Oximetry 91 L 01/10/24 20:00 Oxygen Delivery Method Room Air 01/10/24 19:53 Medical Decision Making MDM Narrative Medical decision making narrative: Workup indicates elevated BUN and creatinine above her baseline and she is clinically dehydrated. She was given IV fluids here and the rest of her workup was negative. She will be admitted for observation. She has been weak and she fell at home. Treatment diagnosis and disposition were discussed with the patient's family. Differential Diagnosis Differential Diagnosis: Lumbar fracture, UTI, dehydration, anemia Lab Data Lab results reviewed: Yes I reviewed the patient's lab results Labs: Lab Results 01/10/24 01/10/24 Range/Units 19:39 19:46 WBC 6.3 (4.0-11.0) 10^3/uL RBC 4.05 L (4.20-5.40) 10^6/uL Hgb 12.1 (12.0-16.0) g/dL Hct 37.0 (36.0-48.0) % MCV 91.4 (81.0-99.0) fL MCH 29.9 (26.7-34.0) pg MCHC 32.7 (29.9-35.2) g/dL RDW 14.2 (11.0-15.0) % Plt Count 219 (150-450) 10^3/uL MPV 8.9 L (9.5-13.5) fL Seg Neuts % (Manual) 43.0 Band Neutrophils % 0.0 (0-5) % Lymphocytes % (Manual) 13.0 L (20.5-60.0) % Atypical Lymphs % (Man) 29.0 % Monocytes % (Manual) 8.0 (1.7-12.0) % Eosinophils % (Manual) 0.0 L (0.9-7.0) % Basophils % (Manual) 0.0 L (0.2-2.0) % Neutrophils # (Manual) 2.70 (1.4-6.5) 10^3/uL Band Neutrophils # 0.0 (0.0-0.3) 10^3/uL Lymphocytes # (Manual) 0.81 L (1.20-3.80) 10^3/uL Abs Atypical Lymphs Man 1.82 Monocytes # (Manual) 0.50 (0.30-0.80) 10^3/uL Eosinophils # (Manual) 0.00 (0.00-0.70) 10^3/uL Basophils # (Manual) 0.00 (0.00-0.10) 10^3/uL Sodium 131 L (136-145) mmol/L Potassium 4.3 (3.5-5.1) mmol/L Chloride 99 (98-107) mmol/L Carbon Dioxide 22.3 (21.0-32.0) mmol/L Anion Gap 14.0 BUN 32.0 H (7.0-18.0) mg/dL Creatinine 1.78 H (0.55-1.02) mg/dL Est GFR ( Amer) 33 L (>=60) Est GFR (Non-Af Amer) 27 L (>=60) BUN/Creatinine Ratio 18.0 Glucose 84 (74-106) mg/dL Calcium 8.7 (8.5-10.1) mg/dL Urine Color Dk. orange (YELLOW) Urine Clarity Clear (CLEAR) Urine pH 5.5 (5.0-9.0) Ur Specific [place] 1.025 (1.005-1.025) Urine Protein 30 A (NEG/TRACE) mg/dL Urine Glucose (UA) Negative (NEGATIVE) mg/dL Urine Ketones Trace A (NEGATIVE) mg/dL Urine Occult Blood Trace-i (NEGATIVE) Urine Nitrite Negative (NEGATIVE) Urine Bilirubin Small A (NEGATIVE) Urine Urobilinogen 1.0 (0.2-1.0) EU/dL Ur Leukocyte Esterase Negative (NEGATIVE) Urine RBC None seen (0-2) #/HPF Urine WBC None seen (NONE SEEN) #/HPF Ur Squamous Epith Cells None seen (NONE/RARE) #/LPF Urine Crystals None seen (None Seen) #/HPF Amorphous Sediment Many Urine Bacteria None seen (NONE SEEN) #/HPF Urine Casts Seen A (NONE SEEN) #/LPF Hyaline Casts Few Fine Granular Casts Few Urine Mucus Trace A (NONE SEEN) Ur Culture Indicated? No Imaging Data Lumbar x-rays: Radiologist's impression: ITS Impressions Lumbar Spine X-Ray 01/10/24 19:17 IMPRESSION: No fracture or dislocation lumbar spine. Mild osteopenia and multilevel degenerative changes lumbar spine. Electronically authenticated by: CORONA JOSHI Date: 01/10/2024 20:58 ECG Data Attestation: I personally reviewed and interpreted this ECG as follows: (EKG on my interpretation shows normal sinus rhythm without acute change and a rate of 82.) Discharge Plan Discharge Chief Complaint: Fall Clinical Impression: Dehydration Patient Disposition: Admitted as Observation Time of Disposition Decision: 21:24 Condition: Good
--- OUTSIDE RECORDS SUMMARY | 2024-01-10 19:27 | XMS_ITS | CCD ---
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 Name Role Phone Moustapha Avina Primary Care Unavailable Daniel Domínguez Attending Unavailable Daniel Domínguez Admitting Unavailable Moustapha Avina Unavailable Unavailable Unavailable MOUSTAPHA AVINA Primary Care Physician Christel Ghotra Unavailable Unavailable Chasity Yuan Unavailable Unavailable NATE, DR NAYAK Attending Unavailable DANIELA, DR JACINTO Primary Care Unavailable NATE, DR NAYAK Consulting Unavailable HOGrzegorz, DR NAYAK Admitting Unavailable ZIEBCARMEN, DR ALEXANDER Hernandez Consulting Unavailable NADERER, DR DEL Pantoja Consulting Unavailable HAY, DR PATTERSON Consulting Unavailable HESHAM, LUZ Consulting Unavailable LUKirit .CASSIDY Consulting Unavailable LUE ., CASSIDY Bailey Admitting Unavailable LUKirit .CASSIDY Attending Unavailable DANIELA, DR JACINTO Primary Care Unavailable CHANA, YESICA Consulting Unavailable DANIELA, DR JACINTO Admitting Unavailable DANIELA, DR JACINTO Attending Unavailable DANIELA, DR JACINTO Consulting Unavailable DANIELA, DR JACINTO Primary Care Unavailable ZIEBER, DR ALEXANDER Hernandez Consulting Unavailable BENEDICT, DR MUNOZ Consulting Unavailable DANIELA, DR JACINTO Primary Care Unavailable BENEDICT, DR MUNOZ Admitting Unavailable BENEDICT, DR MUNOZ Attending Unavailable DANIELA, DR JACINTO Primary Care Unavailable DANIELA, DR JACINTO Admitting Unavailable DANIELA, DR JACINTO Attending Unavailable DANIELA, DR JACINTO Consulting Unavailable JUAREZ, DR GENO Kimbrough Consulting Unavailable DANIELA, DR JACINTO Admitting Unavailable DANIELA, DR JACINTO Attending Unavailable BALL, DR JACINTO Consulting Unavailable DANIELA, DR JACINTO Primary Care Unavailable ZIEBER, DR ALEXANDER Hernandez Consulting Unavailable DANIELA, DR JACINTO Primary Care Unavailable IRINA DUFFY Consulting Unavailable TATI, IRINA Admitting Unavailable IRINA DUFFY Attending Unavailable GENO LAU Consulting Unavailable Moustapha Avina Unavailable Margarito Harvey Unavailable KEIKO ROCK Attending Unavailable KEIKO ROCK Attending Unavailable KEIKO ROCK Attending Unavailable Cassidy Parks Attending Unavailable Allergies Allergy Classification Reported Allergen(s) Allergy Type Date of Onset Reaction(s) Facility (2 sources) patient allergy list reviewed by nurse or physicia Propensity to adverse reactions Comment:Done [employer] Other (1 source) No Known Medication Allergies; Translations: [No Known Medication Allergies] Propensity to adverse reactions (disorder) [facility] Repository Medications Current Medications Medication Drug Class(es) [...] for 1 month, then 2x/week there after, [facility]/pharmacy #[id number], 158, cm, 09/22/22 8:59:00 EST, Height/Length Dosing, [...] hydrochloride 5 mg oral tablet (14 sources) J-khzixb-V-aspartate Receptor Antagonist Start: 09-22-2022 memantine 5 mg [...] 2 Episodic Other aftercare (1 source) Other [facility] (current) drug therapy; Translations: [OTH APPRENTICE/LINEMAN CURRENT DRUG THERAPY] Onset: 2 Episodic Other aftercare (1 source) 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 Discharge Vitals Heart Rate (Peripheral) 56 Blood Pressure 142/80 Height 62 in Height 158 cm Weight 138.6 lb Weight 63 kg BMI 25.24 What to do next Scheduled Follow-Up Appointments Tuesday 10:00 AM EDT With: LEX HARRY, KEIKO Beth Where: [facility] Patient Educationon 11-22-19 Patient Education Gastroenterology Constipation, Adult Constipation is when a person has fewer than three bowel movements in a week, has difficulty having a bowel movement, or has stools (feces) that are dry, hard, or larger than normal. Constipation may be caused by an underlying condition. It may become worse with age if a person takes certain medicines and does not take in enough fluids. Follow these instructions at home: Eating and drinking ? Eat foods that have a lot of fiber, such as beans, whole grains, and fresh fruits and vegetables. ? Limit foods that are low in fiber and high in fat and processed sugars, such as fried or sweet foods. These include icelandic fries, hamburgers, cookies, candies, and soda. ? Drink enough fluid to keep your urine pale yellow. General instructions ? Exercise regularly or as told by your health care provider. Try to do 150 minutes of moderate exercise each week. ? Use the bathroom when you have the urge to go. Do not hold it in. ? Take fdcg-rfh-uuhtlzo and prescription medicines only as told by your health care provider. This includes any fiber supplements. ? During bowel movements: ? Practice deep breathing while relaxing the lower abdomen. ? Practice pelvic floor relaxation. ? Watch your condition for any changes. Let your health care provider know about them. ? Keep all follow-up visits as told by your health care provider. This is important. Contact a health care provider if: ? You have pain that gets worse. ? You have a fever. ? You do not have a bowel movement after 4 days. ? You vomit. ? You are not hungry or you lose weight. ? You are bleeding from the opening between the buttocks (anus). ? You have thin, pencil-like stools. Get help right away if: ? You have a fever and your symptoms suddenly get worse. ? You leak stool or have blood in your stool. ? Your abdomen is bloated. ? You have severe pain in your abdomen. ? You feel dizzy or you faint. Summary ? Constipation is when a person has fewer than three bowel movements in a week, has difficulty having a bowel movement, or has stools (feces) that are dry, hard, or larger than normal. ? Eat foods that have a lot of fiber, such as beans, whole grains, and fresh fruits and vegetables. ? Drink enough fluid to keep your urine pale yellow. ? Take abew-ynl-zkrlvnf and prescription medicines only as told by your health care provider. This includes any fiber supplements. This information is not intended to replace advice given to you by your health care provider. Make sure you discuss any questions you have with your health care provider. Document Revised: 07/23/2020 Document Reviewed: 07/23/2020 [employer] Patient Education ? 2022 [email or web address]. [facility] Urology Office/Clinic Noteon 11-22-2023 Urology Office/Clinic Note Chief Complaint follow up HPI Staff DANIELLE pt 1yr DEIDRE Last seen by LIYA 11/24/22 DX: Angiomyolipoma of Rt Kidney, Recurrent UTI, Vaginal Atrophy & Contact dermatitis. Pt has since then been seen in our office by DANIELLE 05/04/23 due to possible UTI. At that time pt was not using Estrace Cream,DANIELLE advised pt to restart. DEIDRE scheduled 11/18/23 @ [facility] pt. states that she is having an issue with having bowel movements is taking stool softeners but does not think they are helping her. pt. not using Estrace cream states she never noticed a difference Dysuria: no Incomplete bladder emptying: no Hematuria: no Frequency: no Urgency: no Nocturia:1x a night Stream: good stream Leaking: no Post void dripping: no Wearing pads/ Depends: no Urge incontinence: no Stress incontinence: no Incontinence without Sensory Awareness: no Abdominal pain: no Flank pain: no Sexual complaints: no Review of Systems PHQ Score Initial Depression Screen Score: 0 SCORE no fever, chills, malaise, myalgia. no rash/lesions. no chest pain, palpitations, or SOB. no abdominal pain, nausea, vomiting. no unilateral calf swelling, redness, pain Physical Exam Vitals & Measurements HR: 56(Peripheral) BP: 142/80 HT: 62 in HT: 158 cm WT: 63 kg WT: 138.6 lb BMI: 25.24 General: nontoxic, NAD Mouth: moist mucosa Lungs: normal respiratory effort Cardio: regular rate, good distal perfusion Abdomen: nondistended, no suprapubic distention or tenderness, no CVA tenderness Neurologic: Grossly normal Skin: No rashes or suspicious lesions Assessment/Plan BBSQ 6 unable to give urine sample today 1. Constipation (K59.00: Constipation, unspecified) pt's main concern today. reports infrequent, hard, difficult to pass BMs. taking stool softener nightly, drinks juice and water throughout the day. recommended fiber, fluids, dulcolax/enema for instant relief, miralax daily for continued relief. provided extensive pt education. 2. 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 stable on DEIDRE 11/18/23 repeat DEIDRE in 1 yr 3. Contact dermatitis (L25.9: Unspecified contact dermatitis, unspecified cause) stopped the estrogen cream and has not been using the barrier cream, however reports no vaginal complaints/irritation 4. Recurrent UTI (N39.0: Urinary tract infection, site not specified) no UTIs in at least 6+mos. pt very pleased. Orders: Body Mass Index (BMI) documented 3008F Current tobacco non-user 1036F Depression Screening Negative 3352F Influenza immunization status assessed 1030F Most recent diastolic blood pressure 80-89 mm Hg 3079F Most recent systolic blood pressure >= 140 mm Hg 3077F Patient screen for fall risk: no falls in last year or 1 fall with no injury in last year 1101F Total time spent reviewing previous notes/results/externa l documents, preparing the chart, conducting the encounter with the patient and family, ordering tests/medications, and documenting the encounter was 30 minutes. Follow-up With When Contact Information KEIKO ROCK PA-C, URL Within 1 year Additional Instructions: Patient Education Constipation, Adult Problem List/Past Medical History Ongoing Angiomyolipoma of right kidney Benign essential hypertension Chronic kidney disease Constipation Contact dermatitis Gastro-esophageal reflux disease with esophagitis Hyperlipidemia Lumbar disc Recurrent UTI Urinary tract stones Vaginal atrophy Historical No qualifying data Procedure/Surgical History Appendectomy, bilat hip OA, Cholecystectomy, degenerative disc disease; DJD, Excision of melanoma, lumbar stenosis. Medications donepezil 10 mg Tab doxepin 10 mg Cap lisinopril 10 mg Tab memantine 5 mg Tab Allergies No Known Medication Allergies Social History Tobacco Never (less than 100 in lifetime) Tobacco Use:., 11/22/2023 Immunizations Vaccine Date Status influenza virus vaccine, inactivated 07/17/2021 Recorded influenza virus vaccine, inactivated 06/04/2020 Recorded pneumococcal 13-valent vaccine 02/15/2020 Recorded Normal [facility] Comment on above: Result Comment: Elec tronically Signed By: KEIKO ROCK PA-C\.br\Date and Time Signed: 11/22/23 09:21 EST RAD - Ultrasound Reporton RAD - Ultrasound Report [id number] .00TIFF [facility] Reminderson 11-15-2023 Reminders - From: KEIKO ROCK PA-C To: EU - Recalls Lex; Sent: 11/24/2022 11:11:50 EST Show up: 10/27/2023 11:11:00 EST Subject: DEIDRE Due Date/Time: 11/25/2023 11:11:00 EST needs DEIDRE for angiomyolipoma f/u prior to 1 yr f/u in november 2023 order faxed to [facility] CHERELLE on vm remind pt to make sure she gets the DEIDRE done, advise pt to call our office [facility] Screenson 05-05-2023 Screens [id number]# 1.00CD:127 [facility] Ambulatory Visit Summaryon 0 05-04-2023 Ambulatory Visit [...] ROCK PA-C Where: [facility] Patient Educationon 05-04-20 23 Patient Education [...] these instructions at home: Medicines ? Take jgye-tkk-fjyukyl and prescription medicines only as told by [...] provider. Document Revised: 04/17/2021 Document Reviewed: 04/17/2021 [employer] Patient Education ? 2022 [email or web address]. Obstetrics and Gynecology Urinary Tract Infection, Adult [...] You h (more content not included)... Normal Marie [facility] Urology Office/Clinic Noteon 05-04-2023 Urology Office/Clinic Note Chief Complaint uti symptoms? [facility] Staff 87 year old female here [...] pharm on file. -Advised pt to contact POURING CRANE OPERATOR or automotive maintenance technician regarding skin irritation. -Again discussed importance of [...] reviewing tests in (more content not included)... [facility] Comment on above: Result Comment: Elec tronically Signed By: Cassidy Parks MD\.br\Date and Time Signed: 05/04/23 18:22 EDT\.br\Electronically Co-Signed By: Xuan Mortensen\.br\Date and Time Co-Signed: 05/04/23 11:43 EDT Consultation Noteon 12-11-19 Consultation Note [id number]#1. 00CD:127 [facility] Ambulatory Visit Summaryon 0 11-24-2022 Ambulatory Visit Summary RADHA SHAYNA J :1935 Visit Date:11/24/2022 Ambulatory Visit Instructions Your Diagnosis Recurrent UTI Tests Performed Urnls Dip Stick Auto w/o Microscopy POC 80359 Your Care Team Attending Physician - KEIKO [...] ROCK PA-C Where: [facility] Patient Educationon 11-25-19 Patient Education Obstetrics [...] are. Treatment may include: ? Using an sljh-lyt-kpphjrr vaginal lubricant before sex. ? Using a [...] these instructions at home: Medicines ? Take hftt-jwv-nbbjzte and prescription medicines only as told by your health care provider. Do not use herbal or alternative medicines unless your health care provider says that you can. ? Use jwud-oat-oddpjwh creams, lubricants, or moisturizers for dryness only [...] 01/20/2016 Document Revised: 08/18/2018 Document Reviewed: 06/01/2018 [employer] Patient Education ? 2020 [email or web address]. Normal [facility] Urology Office/Clinic Noteon 11-24-2022 Urology Office/Clinic Note [...] E&M of Est. Patient Moderate 30-39 Min 90749 E&M of Est. Patient Moderate 30-39 Min 97213 2. Recurrent UTI (N39.0: Urinary tract infection, site not specified) No UTIs since last visit. Has been using estrogen cream 2x per week as instructed. CT 10/15/22 showed no renal calculus. Ordered: E&M of Est. Patient Moderate 30-39 Min 19065 E&M of Est. Patient Moderate 30-39 Min 44984 Urnls Dip Stick Auto w/o Microscopy POC 73128 3. 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 States dysuria/urethral pain has completely resolved. Very pleased. Ordered: E&M of Est. Patient Moderate 30-39 Min 72194 E&M of Est. Patient Moderate 30-39 Min 75447 4. Contact dermatitis (L25.9: Unspecified contact dermatitis, [...] E&M of Est. Patient Moderate 30-39 Min 12834 E&M of Est. Patient Moderate 30-39 Min 62756 f/u 1 yr w DEIDRE prior. sooner [...] 09:27:00) Glu (more content not included)... Normal Marie [facility] Comment on above: Result Comment: Elec tronically Signed By: KEIKO ROCK PA-C\Date and Time Signed: 11/24/22 12:[address] [...] YESICA ZAYAS Date: 2022-10-15 09:34 Normal The [facility] CREATININEon 06-08-2022 Creatinine [Mass/Vol] 1.22 mg/dL Critically high 0.55-1.02 Comment on above: Performed By: #### C BRITTANI ####[facility] [address] [place], [place] [address]Rd. Errol Flannery EGFR-AF GUATEMALAN 51 mL/min/1.73m2 Critically low >=60 Comment on above: Performed By: #### C BRITTANI ####[facility] [address] [place], [place] [address]Ip. Errol Flannery EGFR-NON AF GUATEMALAN 42 mL/min/1.73m2 Critically low >=60 Comment on above: Performed By: #### C BRITTANI ####[facility] [address] [place], [place] [address]Kw. Errol Flannery CTA CHEST WO W CONon [...] ALEXANDER DUMONT Date: 2022-06-08 10:18 Normal The [facility] CARDIAC ZECHARIAH 3-6on 2 CK [Catalytic activity/Vol] 35 U/L Normal 26-192 The [facility] Comment on above: Performed By: #### L ACT #### [facility] [address] [address] [address] Errol Flannery CK.MB [Mass/Vol] 1.42 ng/mL Normal <=3.60 The [facility] Comment on above: Performed By: #### L ACT #### [facility] [address] [address] [address] Errol Flannery HSTROP 6.4 pg/mL Normal 4.0-51.3 The [facility] Comment on above: Result Comment: CUT- OFF POINTS HAVE BEEN ESTABLISHED BASED ON THE FOURTH UNIVERSAL DEFINITIONS OF MYOCARDIAL INFARCTION. THE UPPER REFERENCE LIMIT (URL) OF TROPONIN, DEFINED THE 99TH PERCENTILE OF cTnI DISTRIBUTION IN A REFERENCE POPULATION, HAS BEEN CONFIRMED THE DECISION THRESHOLD FOR [place] DIAGNOSIS. Performed By: #### L ACT #### [facility] [address] [address] [address] Errol Flannery CARDIAC ZECHARIAH ADMITon 022 CK [Catalytic activity/Vol] 41 U/L Normal 26-192 The [facility] Comment on above: Performed By: #### C ALICIA, BMP ####[facility] [address] [place] [id number][address] Errol Flannery CK.MB [Mass/Vol] 1.36 ng/mL Normal <=3.60 The [facility] Comment on above: Performed By: #### C ALICIA, BMP ####[facility] [address] [place] [id number]. Errol Flannery HSTROP 5.8 pg/mL Normal 4.0-51.3 The [facility] Comment on above: Result Comment: CUT- OFF POINTS HAVE BEEN ESTABLISHED BASED ON THE FOURTH UNIVERSAL DEFINITIONS OF MYOCARDIAL INFARCTION. THE UPPER REFERENCE LIMIT (URL) OF TROPONIN, DEFINED THE 99TH PERCENTILE OF cTnI DISTRIBUTION IN A REFERENCE POPULATION, HAS BEEN CONFIRMED THE DECISION THRESHOLD FOR [place] DIAGNOSIS. Performed By: #### C BEV VARGAS ####[facility] [address] [place] [id number][address] Errol Flannery RICHELLE 65 ng/mL Normal 9-82 The [facility] Comment on above: Performed By: #### C ALICIA, BEV ####[facility] [address] [place] [id number]. Errol Flannery CBC AUTO DIFFon 04-29-2022 BASO # 0.0 103/ul Normal 0.0-0.1 The [facility] Comment on above: Performed By: #### L ACT #### [facility] [address] [address] [address] Errol Flannery Basophils/100 WBC (Bld) 0.2 % Normal 0.2-2.0 Comment on above: Performed By: #### L ACT #### [facility] [address] [address] [address] Errol Flannery EO # 0.0 103/ul Normal 0.0-0.7 The [facility] Comment on above: Performed By: #### L ACT #### [facility] [address] [address] [address] Errol Flannery Eosinophils/100 WBC (Bld) 0.1 % Critically low 0.9-7.0 The [facility] Comment on above: Performed By: #### L ACT #### [facility] [address] [address] [address] Errol Flannery Erythrocyte distribution width (RBC) [Ratio] 13.9 % Normal 11.0-15.0 The [facility] Comment on above: Performed By: #### L ACT #### [facility] [address] [address] [address] Errol Flannery Hematocrit (Bld) [Volume fraction] 40.9 % Normal 36.0-48.0 The [facility] Comment on above: Performed By: #### L ACT #### [facility] [address] [address] [address] Errol Flannery Hemoglobin (Bld) [Mass/Vol] 13.3 g/dL Normal 12.0-16.0 Comment on above: Performed By: #### L ACT #### [facility] [address] [address] [address] Errol Flannery IG # 0.02 10e3/ul Normal 0.00-0.03 The [facility] Comment on above: Performed By: #### L ACT #### [facility] [address] [address] [address] Errol Flannery IG % 0.2 % Normal 0.0-0.5 Comment on above: Performed By: #### L ACT #### [facility] [address] [place] [address] Dr. Errol Flannery LYMPH # 0.9 103/ul Critically low 1.2-3.8 The [facility] Comment on above: Performed By: #### L ACT #### [facility] [address] [place] [address] Dr. Errol Flannery Lymphocytes/100 WBC (Bld) 9.2 % Critically low 20.5-60.0 Comment on above: Performed By: #### L ACT #### [facility] [address] [place] [address] Dr. Errol Flannery MANUAL DIFF REQ NO Normal The [facility] Comment on above: Performed By: #### L ACT #### [facility] [address] [address] [address] Errol Flannery MCH (RBC) [Entitic mass] 30.6 pg Normal 26.7-34.0 Comment on above: Performed By: #### L ACT #### [facility] [address] [place] [address] Dr. Errol Flannery MCHC (RBC) [Mass/Vol] 32.5 g/dL Normal 29.9-35.2 The [facility] Comment on above: Performed By: #### L ACT #### [facility] [address] [address] [address] Errol Flannery MCV (RBC) [Entitic vol] 94.0 fL Normal 81.0-99.0 Comment on above: Performed By: #### L ACT #### [facility] [address] [place] [address] Dr. Errol Flannery MONO # 0.6 103/ul Normal 0.3-0.8 The [facility] Comment on above: Performed By: #### L ACT #### [facility] [address] [address] [address] Errol Flannery Monocytes/100 WBC (Bld) 6.8 % Normal 1.7-12.0 Comment on above: Performed By: #### L ACT #### [facility] [address] [place] [address] Dr. Errol Flannery NEUT # 7.9 103/ul Critically high 1.4-6.5 The [facility] Comment on above: Performed By: #### L ACT #### [facility] [address] [place] [address] Dr. Errol Flannery Neutrophils/100 WBC (Bld) 83.5 % Critically high 43.0-75.0 The [facility] Comment on above: Performed By: #### L ACT #### [facility] [address] [place] [address] Dr. Errol Flannery Platelet mean volume (Bld) [Entitic vol] 9.5 fL Normal 9.5-13.5 The [facility] Comment on above: Performed By: #### L ACT #### [facility] [address] [place] [address] Dr. Errol Flannery PLT 244 103/ul Normal 150-450 [facility] Comment on above: Performed By: #### L ACT #### [facility] [address] [place] [address] Dr. Errol Flannery RBC 4.35 106/ul Normal 4.20-5.40 [facility] Comment on above: Performed By: #### L ACT #### [facility] [address] [place] [address] Dr. Errol Flannery WBC 9.4 103/ul Normal 4.0-11.0 Comment on above: Performed By: #### L ACT #### [facility] [address] [place] [address] Dr. Errol Flannery ER URINE PROFILEon 2 Bilirubin Ql (U) Negative Normal NEGATIVE The [facility] Comment on above: Performed By: #### L ACT #### [facility] [address] [place] [address] Dr. Errol Flannery Clarity (U) CLEAR Normal CLEAR Comment on above: Performed By: #### L ACT #### [facility] [address] [place] [address] Dr. Errol Flannery Color (U) LT. YELLOW Normal YELLOW Comment on above: Performed By: #### L ACT #### [facility] [address] [place] [address] Dr. Errol SHAFFERAHRaymond A micrscopic examination will be performed if indicated. Normal The [facility] Comment on above: Performed By: #### L ACT #### [facility] [address] [place] [address] Dr. Errol Flannery Glucose Ql (U) Negative Normal NEGATIVE The [facility] Comment on above: Performed By: #### L ACT #### [facility] [address] [place] [address] Dr. Errol Flannery Hemoglobin Ql (U) Negative Normal NEGATIVE The [facility] Comment on above: Performed By: #### L ACT #### [facility] [address] [place] [address] Dr. Errol Flannery Ketones Ql (U) TRACE Abnormal NEGATIVE The [facility] Comment on above: Performed By: #### L ACT #### [facility] [address] [place] [address] Dr. Errol Flannery LEUKOCYTES MODERATE Abnormal NEGATIVE Comment on above: Performed By: #### L ACT #### [facility] [address] [place] [address] Dr. Errol Flannery Nitrite Ql (U) Negative Normal NEGATIVE [facility] Comment on above: Performed By: #### L ACT #### [facility] [address] [address] [address] Errol Flannery pH (U) 6.5 [pH] Normal 5-9 Comment on above: Performed By: #### L ACT #### [facility] [address] [address] [address] Errol Flannery SPEC GRAVITY 1.010 Normal 1.005-<=1.025 [facility] Comment on above: Performed By: #### L ACT #### [facility] [address] [address] [address] Errol Flannery UA PROTEIN Negative Normal NEGATIVE/ TRACE Comment on above: Performed By: #### L ACT #### [facility] [address] [place] [address] Dr. Errol Flannery UR MICRO IND INDICATED Normal Comment on above: Performed By: #### L ACT #### [facility] [address] [address] [address] Errol Flannery Urobilinogen Qn (U) 0.2 {Jordyn'U}/dL Normal 0.2 - 1. 0 Comment on above: Performed By: #### L ACT #### [facility] [address] [place] [address] Dr. Errol Flannery LACTATE/LACTIC ACIDon 2021 Lactate [Moles/Vol] 0.8 mmol/L Normal 0.4-1.9 [facility] Comment on above: Performed By: #### L ACT #### [facility] [address] [place] [address] Dr. Errol Flannery Lactate [Moles/Vol] 0.9 mmol/L Normal 0.4-1.9 [facility] Comment on above: Performed By: #### L ACT ####[facility] [address] [address]Dr. Errol Flannery PROF CHEM 8 (BAS METB)on Anion gap [Moles/Vol] 11.5 mmol/L Normal Comment on above: Performed By: #### C MADM, BMP ####[facility] [address] [id number]. Errol Flannery Calcium [Mass/Vol] 8.9 mg/dL Normal 8.5-10.1 [facility] Comment on above: Performed By: #### C MADM, BMP ####[facility] [address] [id number]. Errol Flannery Chloride [Moles/Vol] 104 mmol/L Normal 98-107 Comment on above: Performed By: #### C MADM, BMP ####[facility] [address] [id number]. Errol Flannery CO2 [Moles/Vol] 28.3 mmol/L Normal 21.0-32.0 [facility] Comment on above: Performed By: #### C MADM, BMP ####[facility] Ezmb[address] [place], [place] [address]Dr. Errol Flannery Creatinine [Mass/Vol] 1.04 mg/dL Critically high 0.55-1.02 Comment on above: Performed By: #### C KRISTIM, BMP ####[facility] [address] [address]Dr. Errol Flannery EGFR-AF GUATEMALAN >60 Normal >=60 [facility] Comment on above: Performed By: #### C MADM, BMP ####[facility] [address] [address]Dr. Errol Flannery EGFR-NON AF GUATEMALAN 50 mL/min/1.73m2 Critically low >=60 Comment on above: Performed By: #### C MADM, BMP ####[facility] [address] [address]Dr. Errol Flannery Glucose [Mass/Vol] 131 mg/dL Critically high 74-106 [facility] Comment on above: Performed By: #### C MADM, BMP ####[facility] [address] [id number]. Errol Flannery Potassium [Moles/Vol] 3.8 mmol/L Normal 3.5-5.1 Comment on above: Performed By: #### C ALICIA, BMP ####[facility] [address] [address]DrElana Flannery Sodium [Moles/Vol] 140 mmol/L Normal 136-145 [facility] Comment on above: Performed By: #### C ALICIA, BMP ####[facility] [address] [address]Dr. Errol Flannery Urea nitrogen [Mass/Vol] 16.0 mg/dL Normal 7.0-18.0 Comment on above: Performed By: #### C ALICIA, BMP ####[facility] [address]sv[address] [address]Dr. Errol Flannery Urea nitrogen/Creatinine [Mass ratio] 15.4 mg/mg Normal Comment on above: Performed By: #### C ALICIA, BMP ####[facility] [address] [address]DrElana Flannery URINE MICROSCOPIC ONLYon BACTERIA TRACE Abnormal NONE SEEN Comment on above: Performed By: #### L ACT #### [facility] [address] [place] [address] Dr. Errol Flannery Bacteria identified Cx Nom (U) NOT INDICATED Normal [facility] Comment on above: Performed By: #### L ACT #### [facility] [address] [place] [address] Dr. Errol Flannery CAST NONE SEEN Normal NONE SEEN Comment on above: Performed By: #### L ACT #### [facility] [address] [place] [address] Dr. Errol Flannery Crystals LM Nom (Urine sed) NONE SEEN Normal NONE SEEN Comment on above: Performed By: #### L ACT #### [facility] [address] [place] [address] Dr. Errol Flannery Epithelial cells LM Ql (Urine sed) FEW Abnormal NONE SEEN /RARE [facility] Comment on above: Performed By: #### L ACT #### [facility] [address] [address] [address] Errol Flannery MUCOUS NONE SEEN Normal NONE SEEN [facility] Comment on above: Performed By: #### L ACT #### [facility] [address] [address] [address] Errol Flannery RBC 0-2 Normal 0-2 [facility] Comment on above: Performed By: #### L ACT #### [facility] [address] [place] [address] Dr. Errol Flannery WBC 2-5 Abnormal NONE SEEN [facility] Comment on above: Performed By: #### L ACT #### [facility] [address] [place] [address] Dr. Errol Flannery XR CHEST 1 Von [...] GENO LAU Date: 2022-04-28 23:01 Normal [facility] CBC AUTO DIFFon 04-12-2022 BASO # 0.0 103/ul Normal 0.0-0.1 [facility] Comment on above: Performed By: #### C BC ####[facility] [address] [address]Dr. Errol Flannery Basophils/100 WBC (Bld) 0.5 % Normal 0.2-2.0 [facility] Comment on above: Performed By: #### C BC ####[facility] [address] [address]DrElana Flannery EO # 0.1 103/ul Normal 0.0-0.7 [facility] Comment on above: Performed By: #### C BC ####[facility] [address] [address]DrElana Flannery Eosinophils/100 WBC (Bld) 1.9 % Normal 0.9-7.0 [facility] Comment on above: Performed By: #### C BC ####[facility] Uvvaotqpci[address] [place], [place] [address]Dr. Pammissy Flannery Erythrocyte distribution width (RBC) [Ratio] 14.1 % Normal 11.0-15.0 [facility] Comment on above: Performed By: #### C BC ####[facility] Cewqdxipdy[address] [place], [place] [address]Dr. Errol Flannery Hematocrit (Bld) [Volume fraction] 35.1 % Critically low 36.0-48.0 [facility] Comment on above: Performed By: #### C BC ####[facility] T[address]nld[address]oyd[address] [place], [place] [address]Dr. Errol Flannery Hemoglobin (Bld) [Mass/Vol] 11.5 g/dL Critically low 12.0-16.0 [facility] Comment on above: Performed By: #### C BC ####[facility] Zjzeihap[address] [place], [place] [address]Dr. Errol Flannery IG # 0.02 10e3/ul Normal 0.00-0.03 [facility] Comment on above: Performed By: #### C BC ####[facility] Savcocdhhg[address] [place], [place] [address]Dr. Errol Flannery IG % 0.3 % Normal 0.0-0.5 [facility] Comment on above: Performed By: #### C BC ####[facility] Cy[address]uiqndzq[address] [place], [place] [address]Dr. Errol Flannery LYMPH # 1.4 103/ul Normal 1.2-3.8 [facility] Comment on above: Performed By: #### C BC ####[facility] Demrobpxqe[address] [place], [place] [address]Dr. Errol Flannery Lymphocytes/100 WBC (Bld) 24.2 % Normal 20.5-60.0 [facility] Comment on above: Performed By: #### C BC ####[facility] Nnfbsxiduk[address] [place], [place] [address]Dr. Errol Flannery MANUAL DIFF REQ NO Normal [facility] Comment on above: Performed By: #### C BC ####[facility] [address] [address]Dr. Errol Flannery MCH (RBC) [Entitic mass] 30.6 pg Normal 26.7-34.0 Comment on above: Performed By: #### C BC ####[facility] [address] [address]Dr. Errol Flannery MCHC (RBC) [Mass/Vol] 32.8 g/dL Normal 29.9-35.2 [facility] Comment on above: Performed By: #### C BC ####[facility] Ishmyhjhpg[address] [place], [place] [address]DrElana Flannery MCV (RBC) [Entitic vol] 93.4 fL Normal 81.0-99.0 [facility] Comment on above: Performed By: #### C BC ####[facility] Mdwjikdzaw[address] [place], [place] [address]DrElana Flannery MONO # 0.6 103/ul Normal 0.3-0.8 [facility] Comment on above: Performed By: #### C BC ####[facility] U[address]vwqruli[address] [place], [place] [address]DrElana Flannery Monocytes/100 WBC (Bld) 10.0 % Normal 1.7-12.0 [facility] Comment on above: Performed By: #### C BC ####[facility] Gatdeowimg[address] [place], [place] [address]DrElana Flannery NEUT # 3.7 103/ul Normal 1.4-6.5 [facility] Comment on above: Performed By: #### C BC ####[facility] X[address]js[address]axl[address] [place], [place] [address]DrElana Flannery Neutrophils/100 WBC (Bld) 63.1 % Normal 43.0-75.0 [facility] Comment on above: Performed By: #### C BC ####[facility] F[address]frxuxgmf[address] [place], [place] [address]Dr. Errol Flannery Platelet mean volume (Bld) [Entitic vol] 9.8 fL Normal 9.5-13.5 Comment on above: Performed By: #### C BC ####[facility] [address] [id number]. Errol Flannery PLT 237 103/ul Normal 150-450 Comment on above: Performed By: #### C BC ####[facility] [address] [id number]. Errol Flannery RBC 3.76 106/ul Critically low 4.20-5.40 [facility] Comment on above: Performed By: #### C BC ####[facility] D[address]unkax[address] [id number]. Errol Flannery WBC 5.8 103/ul Normal 4.0-11.0 Comment on above: Performed By: #### C BC ####[facility] [address] [id number]. Errol Flannery PROF 14(COMP METB)on 022 Albumin [Mass/Vol] 2.2 g/dL Critically low 3.4-5.0 [facility] Comment on above: Performed By: #### L ACT #### [facility] [address] [address] [address] Errol Flannery Albumin/Globulin [Mass ratio] 0.7 {ratio} Normal Comment on above: Performed By: #### L ACT #### [facility] [address] [address] [address] Errol Flannery ALP [Catalytic activity/Vol] 65 U/L Normal 46-116 [facility] Comment on above: Performed By: #### L ACT #### [facility] [address] [address] [address] Errol Flannery ALT [Catalytic activity/Vol] 32 U/L Normal 14-59 Comment on above: Performed By: #### L ACT #### [facility] [address] [address] [address] Errol Flannery Anion gap [Moles/Vol] 8.6 mmol/L Normal Comment on above: Performed By: #### L ACT #### [facility] [address] [address] [address] Errol Flannery AST [Catalytic activity/Vol] 21 U/L Normal 15-37 Comment on above: Performed By: #### L ACT #### [facility] [address] [address] [address] Errol Flannery Bilirubin [Mass/Vol] 0.2 mg/dL Normal 0.2-1.0 Comment on above: Performed By: #### L ACT #### [facility] [address] [address] [address] Errol Flannery Calcium [Mass/Vol] 8.5 mg/dL Normal 8.5-10.1 [facility] Comment on above: Performed By: #### L ACT #### [facility] [address] [address] [address] Errol Flannery Chloride [Moles/Vol] 109 mmol/L Critically high 98-107 Comment on above: Performed By: #### L ACT #### [facility] [address] [address] [address] Errol Flannery CO2 [Moles/Vol] 29.0 mmol/L Normal 21.0-32.0 [facility] Comment on above: Performed By: #### L ACT #### [facility] [address] [address] [address] Errol Flannery Creatinine [Mass/Vol] 1.01 mg/dL Normal 0.55-1.02 Comment on above: Performed By: #### L ACT #### [facility] [address] [address] [address] Errol Flannery EGFR-AF GUATEMALAN >60 Normal >=60 [facility] Comment on above: Performed By: #### L ACT #### [facility] [address] [address] [address] Errol Flannery EGFR-NON AF GUATEMALAN 52 mL/min/1.73m2 Critically low >=60 Comment on above: Performed By: #### L ACT #### [facility] [address] [address] [address] Errol Flannery Globulin (S) [Mass/Vol] 3.1 g/dL Normal Comment on above: Performed By: #### L ACT #### [facility] [address] [address] [address] Errol Flannery Glucose [Mass/Vol] 98 mg/dL Normal 74-106 [facility] Comment on above: Performed By: #### L ACT #### [facility] [address] [address] [address] Errol Flannery Potassium [Moles/Vol] 4.6 mmol/L Normal 3.5-5.1 Comment on above: Performed By: #### L ACT #### [facility] [address] [place] [address] Dr. Errol Flannery Protein [Mass/Vol] 5.3 g/dL Critically low 6.4-8.2 [facility] Comment on above: Performed By: #### L ACT #### [facility] [address] [place] [address] Dr. Errol Flannery Sodium [Moles/Vol] 142 mmol/L Normal 136-145 [facility] Comment on above: Performed By: #### L ACT #### [facility] [address] [place] [address] Dr. Errol Flannery Urea nitrogen [Mass/Vol] 16.0 mg/dL Normal 7.0-18.0 Comment on above: Performed By: #### L ACT #### [facility] [address] [place] [address] Dr. Errol Flannery Urea nitrogen/Creatinine [Mass ratio] 15.8 mg/mg Normal Comment on above: Performed By: #### L ACT #### [facility] [address] [place] [address] Dr. Errol Flannery CBC AUTO DIFFon 04-11-2022 BASO # 0.0 103/ul Normal 0.0-0.1 Comment on above: Performed By: #### C BC ####[facility] [address] [id number]. Errol Flannery Basophils/100 WBC (Bld) 0.6 % Normal 0.2-2.0 [facility] Comment on above: Performed By: #### C BC ####[facility] [address]zibj[address] [place], [place] [address]Dr. Errol Flannery EO # 0.1 103/ul Normal 0.0-0.7 [facility] Comment on above: Performed By: #### C BC ####[facility] [address]grqqhyq[address] [place], [place] [address]Dr. Errol Flannery Eosinophils/100 WBC (Bld) 1.8 % Normal 0.9-7.0 [facility] Comment on above: Performed By: #### C BC ####[facility] Ypegxtmhbt[address] [place], [place] [address]Dr. Errol Flannery Erythrocyte distribution width (RBC) [Ratio] 14.0 % Normal 11.0-15.0 [facility] Comment on above: Performed By: #### C BC ####[facility] Ichcw[address] [place], [place] [address]Dr. Errol Flannery Hematocrit (Bld) [Volume fraction] 34.5 % Critically low 36.0-48.0 [facility] Comment on above: Performed By: #### C BC ####[facility] [address]zgckehmz[address] [place], [place] [address]Dr. Errol Flannery Hemoglobin (Bld) [Mass/Vol] 11.1 g/dL Critically low 12.0-16.0 [facility] Comment on above: Performed By: #### C BC ####[facility] Z[address]xkprjdw[address] [place], [place] [address]Dr. Errol Flannery IG # 0.02 10e3/ul Normal 0.00-0.03 [facility] Comment on above: Performed By: #### C BC ####[facility] [address]vspdp[address] [place], [place] [address]Dr. Errol Flannery IG % 0.3 % Normal 0.0-0.5 [facility] Comment on above: Performed By: #### C BC ####[facility] [address] [id number]. Errol Flannery LYMPH # 1.6 103/ul Normal 1.2-3.8 [facility] Comment on above: Performed By: #### C BC ####[facility] [address]zpw[address] [id number]. Errol Flannery Lymphocytes/100 WBC (Bld) 21.9 % Normal 20.5-60.0 Comment on above: Performed By: #### C BC ####[facility] [address] [id number]. Errol Flannery MANUAL DIFF REQ NO Normal [facility] Comment on above: Performed By: #### C BC ####[facility] [address] [id number]. Errol Flannery MCH (RBC) [Entitic mass] 30.1 pg Normal 26.7-34.0 Comment on above: Performed By: #### C BC ####[facility] [address]xkbjso[address] [id number]. Errol Flannery MCHC (RBC) [Mass/Vol] 32.2 g/dL Normal 29.9-35.2 Comment on above: Performed By: #### C BC ####[facility] [address]avoisk[address] [id number]. Errol Flannery MCV (RBC) [Entitic vol] 93.5 fL Normal 81.0-99.0 Comment on above: Performed By: #### C BC ####[facility] [address]qqtrbkx[address] [id number]. Errol Flannery MONO # 0.7 103/ul Normal 0.3-0.8 [facility] Comment on above: Performed By: #### C BC ####[facility] Omnlzztdpm[address] [id number]. Errol Flannery Monocytes/100 WBC (Bld) 9.4 % Normal 1.7-12.0 Comment on above: Performed By: #### C BC ####[facility] L[address]ccjbw[address] [id number]. Errol Flannery NEUT # 4.8 103/ul Normal 1.4-6.5 Comment on above: Performed By: #### C BC ####[facility] S[address]vrqbc[address] [id number]. Errol Flannery Neutrophils/100 WBC (Bld) 66.0 % Normal 43.0-75.0 Comment on above: Performed By: #### C BC ####[facility] Bi[address]zk[address] [id number]. Errol Flannery Platelet mean volume (Bld) [Entitic vol] 9.2 fL Critically low 9.5-13.5 Comment on above: Performed By: #### C BC ####[facility] Bjxtxqfdwf[address] [place], [place] [address]Dr. Errol Flannery PLT 240 103/ul Normal 150-450 [facility] Comment on above: Performed By: #### C BC ####[facility] F[address] [place], [place] [address]Dr. Errol Flannery RBC 3.69 106/ul Critically low 4.20-5.40 [facility] Comment on above: Performed By: #### C BC ####[facility] [address] [address]Dr. Errol Flannery WBC 7.3 103/ul Normal 4.0-11.0 Comment on above: Performed By: #### C BC ####[facility] [address] [id number]. Errol Flannery GI PANEL (PCR)on 04-11-2022 Adenovirus F 40/41 Not detected Normal NOT DETECTED [facility] Comment on above: Performed By: #### G IPANEL ####[facility] [address] [address]Dr. Errol Flannery Astrovirus Not detected Normal NOT DETECTED [facility] Comment on above: Performed By: #### G IPANEL ####[facility] Th[address]ijduiej[address] [address]Dr. Errol Flannery C. Diff toxin A/B Detected Critically abnormal NOT DETECTED [facility] Comment on above: Performed By: #### G IPANEL ####[facility] W[address]yjdsx[address] [address]Dr. Errol Flannery Campylobacter Not detected Normal NOT DETECTED [facility] Comment on above: Performed By: #### G IPANEL ####[facility] B[address]qfqmygqa[address] [address]Dr. Errol Flannery Cryptosporidium Not detected Normal NOT DETECTED [facility] Comment on above: Performed By: #### G IPANEL ####[facility] V[address]ctbfzlcr[address] [place], [place] [address]Dr. Errol Flannery Cyclos. Cayetanensis Not detected Normal NOT DETECTED [facility] Comment on above: Performed By: #### G IPANEL ####[facility] Miptjnpixb[address] [place], [place] [address]Dr. Errol Flannery E. Coli O157 Not Applicable Normal Not Applicable [facility] Comment on above: Performed By: #### G IPANEL ####[facility] Zaomuqqtuc22[address] [place], [place] [address]Dr. Errol Flannery E. histolytica Not detected Normal NOT DETECTED [facility] Comment on above: Performed By: #### G IPANEL ####[facility] Xuguygupzb[address] [place], [place] [address]Dr. Errol Flannery EAEC Not detected Normal NOT DETECTED [facility] Comment on above: Performed By: #### G IPANEL ####[facility] Gpojqsthrs[address] [place], [place] [address]Dr. Errol Flannery EIEC Not detected Normal NOT DETECTED [facility] Comment on above: Performed By: #### G IPANEL ####[facility] Ywqnzqdfeb[address] [place], [place] [address]Dr. Errol Flannery EPEC Not detected Normal NOT DETECTED [facility] Comment on above: Performed By: #### G IPANEL ####[facility] Xmpcfofwrm[address] [place], [place] [address]Dr. Errol Flannery ETEC Not detected Normal NOT DETECTED [facility] Comment on above: Performed By: #### G IPANEL ####[facility] Pr[address] [id number]. Errol Flannery G. Lamblia Not detected Normal NOT DETECTED [facility] Comment on above: Performed By: #### G IPANEL ####[facility] Nks[address]kirz[address] [id number]. Errol HUNTANEL CONTROLS PASSED Normal The [facility] Comment on above: Performed By: #### G IPANEL ####[facility] Ntmwmwamcp[address] [address]Dr. Errol JAY JUNAID HEADER GI PANEL BACTERIA Normal [facility] Comment on above: Performed By: #### G IPANEL ####[facility] Ymfplmqiqh[address] [place], [place] [address]Dr. Errol JAYHD ECOLI GI PANEL DIARRHEAGENIC E.COLI / SHIGELLA Normal Comment on above: Performed By: #### G IPANEL ####[facility] Jagxqrzvnm224[address] [place], [place] [address]Dr. Errol BAEZ INFO SEE BELOW Normal Comment on above: Result Comment: EAEC - Enteroaggregative E. Coli EPEC- Enteropathogenic E. Coli ETEC- Enterotoxigenic E. Coli lt/st STEC- Shigella-like toxin-producing E. Coli stx1/stx2 EIEC- Shigella/Enteroinvasive E. Coli Performed By: #### G IPANEL ####[facility] [address]utsa[address] [id number]. Errol HUNTNLHD PARASITES GI PANEL PARASITES Normal [facility] Comment on above: Performed By: #### G IPANEL ####[facility] Fabtufqjwn[address] [address]Dr. Errol JAYHD VIRUS GI PANEL VIRUSES Normal [facility] Comment on above: Performed By: #### G IPANEL ####[facility] Dvczqrhxvi64[address] [place], [place] [address]Dr. Errol Flannery Norovirus GI/GII Not detected Normal NOT DETECTED [facility] Comment on above: Performed By: #### G IPANEL ####[facility] Liznyralxh6[address] [place], [place] [address]Dr. Errol Flannery P. Shigelloides Not detected Normal NOT DETECTED [facility] Comment on above: Performed By: #### G IPANEL ####[facility] Vgrnwzqujf[address] [place], [place] [address]Dr. Errol Flannery Rotavirus A Not detected Normal NOT DETECTED [facility] Comment on above: Performed By: #### G IPANEL ####[facility] Bkqgdgexxw[address] [place], [place] [address]Dr. Errol Flannery Salmonella Not detected Normal NOT DETECTED [facility] Comment on above: Performed By: #### G IPANEL ####[facility] Vntbkucxlj[address] [place], [place] [address]Dr. Errol Flannery Sapovirus Not detected Normal NOT DETECTED [facility] Comment on above: Performed By: #### G IPANEL ####[facility] Xmsewhvzxn[address] [place], [place] [address]Dr. Errol Flannery STEC Not detected Normal NOT DETECTED [facility] Comment on above: Performed By: #### G IPANEL ####[facility] Jpthdesloi[address] [place], [place] [address]Dr. Errol Flannery Vibrio Not detected Normal NOT DETECTED [facility] [facility] Comment on above: Performed By: #### G IPANEL ####[facility] [id number] [place], [place] [address]Dr. Errol Flannery Vibrio Cholera Not detected Normal NOT DETECTED [facility] Comment on above: Performed By: #### G IPANEL ####[facility] [id number] [place], [place] [address]Dr. Errol Flannery Y. Enterocolitica Not detected Normal NOT DETECTED [facility] Comment on above: Performed By: #### G IPANEL ####[facility] [address] [place], [place] [address]Dr. Errol Flannery OCC BLD IMMUNOASSAYon 2021 OCCULT BLOOD Positive Abnormal NEGATIVE Comment on above: Performed By: #### O EDISON ####[facility] [address] [address]Dr. Errol Flannery PROF 14(COMP METB)on 022 Albumin [Mass/Vol] 2.1 g/dL Critically low 3.4-5.0 e [facility] Comment on above: Performed By: #### C BC #### [facility] [address] [address] [address] Errol Flannery Albumin/Globulin [Mass ratio] 0.7 {ratio} Normal Comment on above: Performed By: #### C BC #### [facility] [address] [place] [address] Dr. Errol Flannery ALP [Catalytic activity/Vol] 60 U/L Normal 46-116 Comment on above: Performed By: #### C BC #### [facility] [address] [address] [address] Errol Flannery ALT [Catalytic activity/Vol] 30 U/L Normal 14-59 Comment on above: Performed By: #### C BC #### [facility] [address] [place] [address] Dr. Errol Flannery Anion gap [Moles/Vol] 8.9 mmol/L Normal Comment on above: Performed By: #### C BC #### [facility] [address] [place] [address] Dr. Errol Flannery AST [Catalytic activity/Vol] 20 U/L Normal 15-37 Comment on above: Performed By: #### C BC #### [facility] [address] [place], [place] [id number] Dr. Errol Flannery Bilirubin [Mass/Vol] 0.3 mg/dL Normal 0.2-1.0 Comment on above: Performed By: #### C BC #### [facility] [address] [place] [address] Dr. Errol Flannery Calcium [Mass/Vol] 8.2 mg/dL Critically low 8.5-10.1 e [facility] Comment on above: Performed By: #### C BC #### [facility] [address] [address] [address] Errol Flannery Chloride [Moles/Vol] 109 mmol/L Critically high 98-107 Comment on above: Performed By: #### C BC #### [facility] [address] [address] [address] Errol Flannery CO2 [Moles/Vol] 27.7 mmol/L Normal 21.0-32.0 [facility] Comment on above: Performed By: #### C BC #### [facility] [address] [address] [address] Errol Flannery Creatinine [Mass/Vol] 1.03 mg/dL Critically high 0.55-1.02 Comment on above: Performed By: #### C BC #### [facility] [address] [address] [address] Errol Flannery EGFR-AF GUATEMALAN >60 Normal >=60 [facility] Comment on above: Performed By: #### C BC #### [facility] [address] [address] [address] Errol Flannery EGFR-NON AF GUATEMALAN 51 mL/min/1.73m2 Critically low >=60 Comment on above: Performed By: #### C BC #### [facility] [address] [address] [address] Errol Flannery Globulin (S) [Mass/Vol] 3.0 g/dL Normal Comment on above: Performed By: #### C BC #### [facility] [address] [address] [address] Errol Flannery Glucose [Mass/Vol] 91 mg/dL Normal 74-106 [facility] Comment on above: Performed By: #### C BC #### [facility] [address] [address] [address] Errol Flannery Potassium [Moles/Vol] 3.6 mmol/L Normal 3.5-5.1 Comment on above: Performed By: #### C BC #### [facility] [address] [place] [address] Dr. Errol Flannery Protein [Mass/Vol] 5.1 g/dL Critically low 6.4-8.2 Th e [facility] Comment on above: Performed By: #### C BC #### [facility] [address] [place] [address] Dr. Errol Flannery Sodium [Moles/Vol] 142 mmol/L Normal 136-145 [facility] Comment on above: Performed By: #### C BC #### [facility] [address] [place] [address] Dr. Errol Flannery Urea nitrogen [Mass/Vol] 11.0 mg/dL Normal 7.0-18.0 Comment on above: Performed By: #### C BC #### [facility] [address] [place] [address] Dr. Errol Flannery Urea nitrogen/Creatinine [Mass ratio] 10.7 mg/mg Normal Comment on above: Performed By: #### C BC #### [facility] [address] [place] [address] Dr. Errol Flannery CBC AUTO DIFFon 04-10-2022 BASO # 0.0 103/ul Normal 0.0-0.1 Comment on above: Performed By: #### C BC #### [facility] [address] [place] [address] Dr. Errol Flannery Basophils/100 WBC (Bld) 0.4 % Normal 0.2-2.0 Comment on above: Performed By: #### C BC #### [facility] [address] [place] [address] Dr. Errol Flannery EO # 0.1 103/ul Normal 0.0-0.7 Comment on above: Performed By: #### C BC #### [facility] [address] [place] [address] Dr. Errol Flannery Eosinophils/100 WBC (Bld) 2.1 % Normal 0.9-7.0 Comment on above: Performed By: #### C BC #### [facility] [address] [place] [address] Dr. Errol Flannery Erythrocyte distribution width (RBC) [Ratio] 13.8 % Normal 11.0-15.0 Comment on above: Performed By: #### C BC #### [facility] [address] [place] [address] Dr. Errol Flannery Hematocrit (Bld) [Volume fraction] 35.9 % Critically low 36.0-48.0 Comment on above: Performed By: #### C BC #### [facility] [address] [place] [address] Dr. Errol Flannery Hemoglobin (Bld) [Mass/Vol] 11.6 g/dL Critically low 12.0-16.0 Comment on above: Performed By: #### C BC #### [facility] [address] [place] [address] Dr. Errol Flannery IG # 0.03 10e3/ul Normal 0.00-0.03 Comment on above: Performed By: #### C BC #### [facility] [address] [place] [address] Dr. Errol Flannery IG % 0.5 % Normal 0.0-0.5 Comment on above: Performed By: #### C BC #### [facility] [address] [place] [address] Dr. Errol Flannery LYMPH # 1.2 103/ul Normal 1.2-3.8 Comment on above: Performed By: #### C BC #### [facility] [address] [place] [address] Dr. Errol Flannery Lymphocytes/100 WBC (Bld) 21.7 % Normal 20.5-60.0 Comment on above: Performed By: #### C BC #### [facility] [address] [place] [address] Dr. Errol Flannery MANUAL DIFF REQ NO Normal [facility] Comment on above: Performed By: #### C BC #### [facility] [address] [address] [address] Errol Flannery MCH (RBC) [Entitic mass] 30.0 pg Normal 26.7-34.0 [facility] Comment on above: Performed By: #### C BC #### [facility] [address] [place] [address] Dr. Errol Flannery MCHC (RBC) [Mass/Vol] 32.3 g/dL Normal 29.9-35.2 [facility] Comment on above: Performed By: #### C BC #### [facility] [address] [place] [address] Dr. Errol Flannery MCV (RBC) [Entitic vol] 92.8 fL Normal 81.0-99.0 Comment on above: Performed By: #### C BC #### [facility] [address] [place] [address] Dr. Errol Flannery MONO # 0.6 103/ul Normal 0.3-0.8 [facility] Comment on above: Performed By: #### C BC #### [facility] [address] [place] [address] Dr. Errol Flannery Monocytes/100 WBC (Bld) 10.5 % Normal 1.7-12.0 Comment on above: Performed By: #### C BC #### [facility] [address] [place] [address] Dr. Errol Flannery NEUT # 3.6 103/ul Normal 1.4-6.5 [facility] Comment on above: Performed By: #### C BC #### [facility] [address] [place] [address] Dr. Errol Flannery Neutrophils/100 WBC (Bld) 64.8 % Normal 43.0-75.0 [facility] Comment on above: Performed By: #### C BC #### [facility] [address] [place] [address] Dr. Errol Flannery Platelet mean volume (Bld) [Entitic vol] 9.0 fL Critically low 9.5-13.5 [facility] Comment on above: Performed By: #### C BC #### [facility] [address] [place] [address] Dr. Errol Flannery PLT 250 103/ul Normal 150-450 Comment on above: Performed By: #### C BC #### [facility] [address] [place] [address] Dr. Errol Flannery RBC 3.87 106/ul Critically low 4.20-5.40 [facility] Comment on above: Performed By: #### C BC #### [facility] [address] [place] [address] Dr. Errol Flannery WBC 5.6 103/ul Normal 4.0-11.0 Comment on above: Performed By: #### C BC #### [facility] [address] [place] [address] Dr. Errol Flannery PROF 14(COMP METB)on 022 Albumin [Mass/Vol] 2.2 g/dL Critically low 3.4-5.0 [facility] Comment on above: Performed By: #### L ACT #### [facility] [address] [place] [address] Dr. Errol Flannery Albumin/Globulin [Mass ratio] 0.8 {ratio} Normal Comment on above: Performed By: #### L ACT #### [facility] [address] [place] [address] Dr. Errol Flannery ALP [Catalytic activity/Vol] 67 U/L Normal 46-116 Comment on above: Performed By: #### L ACT #### [facility] [address] [place] [address] Dr. Errol Flannery ALT [Catalytic activity/Vol] 27 U/L Normal 14-59 Comment on above: Performed By: #### L ACT #### [facility] [address] [place] [address] Dr. Errol Flannery Anion gap [Moles/Vol] 8.9 mmol/L Normal Comment on above: Performed By: #### L ACT #### [facility] [address] [place] [address] Dr. Errol Flannery AST [Catalytic activity/Vol] 18 U/L Normal 15-37 Comment on above: Performed By: #### L ACT #### [facility] [address] [address] [address] Errol Flannery Bilirubin [Mass/Vol] 0.3 mg/dL Normal 0.2-1.0 Comment on above: Performed By: #### L ACT #### [facility] [address] [address] [address] Errol Flannery Calcium [Mass/Vol] 8.3 mg/dL Critically low 8.5-10.1 Th e [facility] Comment on above: Performed By: #### L ACT #### [facility] [address] [address] [address] Errol Flannery Chloride [Moles/Vol] 110 mmol/L Critically high 98-107 Comment on above: Performed By: #### L ACT #### [facility] [address] [address] [address] Errol Flannery CO2 [Moles/Vol] 26.6 mmol/L Normal 21.0-32.0 [facility] Comment on above: Performed By: #### L ACT #### [facility] [address] [place] [address] Dr. Errol Flannery Creatinine [Mass/Vol] 0.95 mg/dL Normal 0.55-1.02 Comment on above: Performed By: #### L ACT #### [facility] [address] [address] [address] Errol Flannery EGFR-AF GUATEMALAN >60 Normal >=60 [facility] Comment on above: Performed By: #### L ACT #### [facility] [address] [address] [address] Errol Flannery EGFR-NON AF GUATEMALAN 56 mL/min/1.73m2 Critically low >=60 Comment on above: Performed By: #### L ACT #### [facility] [address] [address] [address] Errol Flannery Globulin (S) [Mass/Vol] 2.9 g/dL Normal Comment on above: Performed By: #### L ACT #### [facility] [address] [address] [address] Errol Flannery Glucose [Mass/Vol] 93 mg/dL Normal 74-106 [facility] Comment on above: Performed By: #### L ACT #### [facility] [address] [address] [address] Errol Flannery Potassium [Moles/Vol] 3.5 mmol/L Normal 3.5-5.1 Comment on above: Performed By: #### L ACT #### [facility] [address] [place] [address] Dr. Errol Flannery Protein [Mass/Vol] 5.1 g/dL Critically low 6.4-8.2 [facility] Comment on above: Performed By: #### L ACT #### [facility] [address] [place] [address] Dr. Errol Flannery Sodium [Moles/Vol] 142 mmol/L Normal 136-145 [facility] Comment on above: Performed By: #### L ACT #### [facility] [address] [place] [address] Dr. Errol Flannery Urea nitrogen [Mass/Vol] 10.0 mg/dL Normal 7.0-18.0 Comment on above: Performed By: #### L ACT #### [facility] [address] [place] [address] Dr. Errol Flannery Urea nitrogen/Creatinine [Mass ratio] 10.5 mg/mg Normal Comment on above: Performed By: #### L ACT #### [facility] [address] [address] [address] Errol Flannery CBC AUTO DIFFon 04-09-2022 BASO # 0.0 103/ul Normal 0.0-0.1 Comment on above: Performed By: #### C BC #### [facility] [address] [place] [address] Dr. Errol Flannery Basophils/100 WBC (Bld) 0.3 % Normal 0.2-2.0 Comment on above: Performed By: #### C BC #### [facility] [address] [place] [address] Dr. Errol Flannery EO # 0.1 103/ul Normal 0.0-0.7 Comment on above: Performed By: #### C BC #### [facility] [address] [place] [address] Dr. Errol Flannery Eosinophils/100 WBC (Bld) 1.9 % Normal 0.9-7.0 Comment on above: Performed By: #### C BC #### [facility] [address] [place] [address] Dr. Errol Flannery Erythrocyte distribution width (RBC) [Ratio] 13.5 % Normal 11.0-15.0 Comment on above: Performed By: #### C BC #### [facility] [address] [place] [address] Dr. Errol Flannery Hematocrit (Bld) [Volume fraction] 34.8 % Critically low 36.0-48.0 Comment on above: Performed By: #### C BC #### [facility] [address] [place] [address] Dr. Errol Flannery Hemoglobin (Bld) [Mass/Vol] 11.3 g/dL Critically low 12.0-16.0 Comment on above: Performed By: #### C BC #### [facility] [address] [place] [address] Dr. Errol Flannery IG # 0.02 10e3/ul Normal 0.00-0.03 Comment on above: Performed By: #### C BC #### [facility] [address] [place] [address] Dr. Errol Flannery IG % 0.3 % Normal 0.0-0.5 Comment on above: Performed By: #### C BC #### [facility] [address] [place] [address] Dr. Errol Flannery LYMPH # 1.4 103/ul Normal 1.2-3.8 Comment on above: Performed By: #### C BC #### [facility] [address] [place] [address] Dr. Errol Flannery Lymphocytes/100 WBC (Bld) 23.8 % Normal 20.5-60.0 Comment on above: Performed By: #### C BC #### [facility] [address] [place] [address] Dr. Errol Flannery MANUAL DIFF REQ NO Normal [facility] Comment on above: Performed By: #### C BC #### [facility] [address] [place] [address] Dr. Errol Flannery MCH (RBC) [Entitic mass] 30.4 pg Normal 26.7-34.0 Comment on above: Performed By: #### C BC #### [facility] [address] [place] [address] Dr. Errol Flannery MCHC (RBC) [Mass/Vol] 32.5 g/dL Normal 29.9-35.2 Comment on above: Performed By: #### C BC #### [facility] [address] [place] [address] Dr. Errol Flannery MCV (RBC) [Entitic vol] 93.5 fL Normal 81.0-99.0 Comment on above: Performed By: #### C BC #### [facility] [address] [place] [address] Dr. Errol Flannery MONO # 0.6 103/ul Normal 0.3-0.8 Comment on above: Performed By: #### C BC #### [facility] [address] [place] [address] Dr. Errol Flannery Monocytes/100 WBC (Bld) 9.3 % Normal 1.7-12.0 Comment on above: Performed By: #### C BC #### [facility] [address] [place] [address] Dr. Errol Flannery NEUT # 3.8 103/ul Normal 1.4-6.5 Comment on above: Performed By: #### C BC #### [facility] [address] [address] [address] Errol Flannery Neutrophils/100 WBC (Bld) 64.4 % Normal 43.0-75.0 Comment on above: Performed By: #### C BC #### [facility] [address] [address] [address] Errol Flannery Platelet mean volume (Bld) [Entitic vol] 9.2 fL Critically low 9.5-13.5 Comment on above: Performed By: #### C BC #### [facility] [address] [address] [address] Errol Flannery PLT 233 103/ul Normal 150-450 Comment on above: Performed By: #### C BC #### [facility] [address] [place] [address] Dr. Errol Flannery RBC 3.72 106/ul Critically low 4.20-5.40 [facility] Comment on above: Performed By: #### C BC #### [facility] [address] [place] [address] Dr. Errol Flannery WBC 5.9 103/ul Normal 4.0-11.0 Comment on above: Performed By: #### C BC #### [facility] [address] [place] [address] Dr. Errol Flannery PROF 14(COMP METB)on 022 Albumin [Mass/Vol] 2.2 g/dL Critically low 3.4-5.0 [facility] Comment on above: Performed By: #### L ACT #### [facility] [address] [place] [address] Dr. Errol Flannery Albumin/Globulin [Mass ratio] 0.8 {ratio} Normal Comment on above: Performed By: #### L ACT #### [facility] [address] [address] [address] Errol Flannery ALP [Catalytic activity/Vol] 61 U/L Normal 46-116 Comment on above: Performed By: #### L ACT #### [facility] [address] [address] [address] Errol Flannery ALT [Catalytic activity/Vol] 28 U/L Normal 14-59 Comment on above: Performed By: #### L ACT #### [facility] [address] [address] [address] Errol Flannery Anion gap [Moles/Vol] 8.6 mmol/L Normal Comment on above: Performed By: #### L ACT #### [facility] [address] [address] [address] Errol Flannery AST [Catalytic activity/Vol] 14 U/L Critically low 15-37 Comment on above: Performed By: #### L ACT #### [facility] [address] [address] [address] Errol Flanenry Bilirubin [Mass/Vol] 0.2 mg/dL Normal 0.2-1.0 Comment on above: Performed By: #### L ACT #### [facility] [address] [address] [address] Errol Flannery Calcium [Mass/Vol] 7.9 mg/dL Critically low 8.5-10.1 Th e [facility] Comment on above: Performed By: #### L ACT #### [facility] [address] [address] [address] Errol Flannery Chloride [Moles/Vol] 109 mmol/L Critically high 98-107 Comment on above: Performed By: #### L ACT #### [facility] [address] [address] [address] Errol Flannery CO2 [Moles/Vol] 28.6 mmol/L Normal 21.0-32.0 [facility] Comment on above: Performed By: #### L ACT #### [facility] [address] [address] [address] Errol Flannery Creatinine [Mass/Vol] 1.05 mg/dL Critically high 0.55-1.02 Comment on above: Performed By: #### L ACT #### [facility] [address] [address] [address] Errol Flannery EGFR-AF GUATEMALAN 60 mL/min/1.73m2 Normal >=60 [facility] Comment on above: Performed By: #### L ACT #### [facility] [address] [address] [address] Errol Flannery EGFR-NON AF GUATEMALAN 50 mL/min/1.73m2 Critically low >=60 Comment on above: Performed By: #### L ACT #### [facility] [address] [address] [address] Errol Flannery Globulin (S) [Mass/Vol] 2.8 g/dL Normal Comment on above: Performed By: #### L ACT #### [facility] [address] [address] [address] Errol Flannery Glucose [Mass/Vol] 111 mg/dL Critically high 74-106 [facility] Comment on above: Performed By: #### L ACT #### [facility] [address] [address] [address] Errol Flannery Potassium [Moles/Vol] 3.2 mmol/L Critically low 3.5-5.1 Comment on above: Performed By: #### L ACT #### [facility] [address] [address] [address] Errol Flannery Protein [Mass/Vol] 5.0 g/dL Critically low 6.4-8.2 [facility] Comment on above: Performed By: #### L ACT #### [facility] [address] [address] [address] Errol Flannery Sodium [Moles/Vol] 143 mmol/L Normal 136-145 [facility] Comment on above: Performed By: #### L ACT #### [facility] [address] [address] [address] Errol Flannery Urea nitrogen [Mass/Vol] 9.0 mg/dL Normal 7.0-18.0 Comment on above: Performed By: #### L ACT #### [facility] [address] [address] [address] Errol Flannery Urea nitrogen/Creatinine [Mass ratio] 8.6 mg/mg Normal [facility] Comment on above: Performed By: #### L ACT #### [facility] [id number] Errol Flannery CBC AUTO DIFFon 04-08-2022 BASO # 0.0 103/ul Normal 0.0-0.1 Comment on above: Performed By: #### C BC ####[facility] [id number] [id number] Flannery Basophils/100 WBC (Bld) 0.5 % Normal 0.2-2.0 [facility] Comment on above: Performed By: #### C BC ####[facility] [address] [address]DrElana Flannery EO # 0.1 103/ul Normal 0.0-0.7 [facility] Comment on above: Performed By: #### C BC ####[facility] [address] [address]DrElana Flannery Eosinophils/100 WBC (Bld) 1.8 % Normal 0.9-7.0 [facility] Comment on above: Performed By: #### C BC ####[facility] [address] [id number] Flannery Erythrocyte distribution width (RBC) [Ratio] 13.4 % Normal 11.0-15.0 [facility] Comment on above: Performed By: #### C BC ####[facility] [address] [id number] Flannery Hematocrit (Bld) [Volume fraction] 34.3 % Critically low 36.0-48.0 [facility] Comment on above: Performed By: #### C BC ####[facility] [address] [id number] Flannery Hemoglobin (Bld) [Mass/Vol] 11.1 g/dL Critically low 12.0-16.0 [facility] Comment on above: Performed By: #### C BC ####[facility] [address] [id number]. Errol Flannery IG # 0.01 10e3/ul Normal 0.00-0.03 Comment on above: Performed By: #### C BC ####[facility] [address] [id number]. Errol Flannery IG % 0.2 % Normal 0.0-0.5 Comment on above: Performed By: #### C BC ####[facility] [address] [id number]. Errol Flannery LYMPH # 1.4 103/ul Normal 1.2-3.8 [facility] Comment on above: Performed By: #### C BC ####[facility] [address] [address]Dr. Errol Flannery Lymphocytes/100 WBC (Bld) 32.4 % Normal 20.5-60.0 Comment on above: Performed By: #### C BC ####[facility] [address] [address]Dr. Errol Flannery MANUAL DIFF REQ NO Normal [facility] Comment on above: Performed By: #### C BC ####[facility] [address] [address]Dr. Errol Flannery MCH (RBC) [Entitic mass] 30.4 pg Normal 26.7-34.0 Comment on above: Performed By: #### C BC ####[facility] [address] [address]Dr. Errol Flannery MCHC (RBC) [Mass/Vol] 32.4 g/dL Normal 29.9-35.2 [facility] Comment on above: Performed By: #### C BC ####[facility] [address] [address]Dr. Errol Flannery MCV (RBC) [Entitic vol] 94.0 fL Normal 81.0-99.0 Comment on above: Performed By: #### C BC ####[facility] [address] [id number]. Errol Flannery MONO # 0.5 103/ul Normal 0.3-0.8 [facility] [facility] Comment on above: Performed By: #### C BC ####[facility] [address]znlub[address] [place] [id number]. Errol Flannery Monocytes/100 WBC (Bld) 10.4 % Normal 1.7-12.0 The [facility] Comment on above: Performed By: #### C BC ####[facility] Tzzhcwbzli[address] [place] [id number]. Errol Flannery NEUT # 2.4 103/ul Normal 1.4-6.5 The [facility] Comment on above: Performed By: #### C BC ####[facility] Ynattabwdq5433 [place] [id number]. Errol Flannery Neutrophils/100 WBC (Bld) 54.7 % Normal 43.0-75.0 The [facility] Comment on above: Performed By: #### C BC ####[facility] Uveepgzgyq8833 [place] [id number]. Errol Flannery Platelet mean volume (Bld) [Entitic vol] 9.3 fL Critically low 9.5-13.5 The [facility] Comment on above: Performed By: #### C BC ####[facility] Hremohugrt[address] [place] [id number]. Errol Flannery PLT 218 103/ul Normal 150-450 [facility] Comment on above: Performed By: #### C BC ####[facility] Tqkdgkbsor3224 [place] [id number]. Errol Flannery RBC 3.65 106/ul Critically low 4.20-5.40 The [facility] Comment on above: Performed By: #### C BC ####[facility] Cizsjoupiu7[address] [place] [id number]. Errol Flannery WBC 4.4 103/ul Normal 4.0-11.0 The [facility] Comment on above: Performed By: #### C BC ####[facility] [address]hlfbq[address] [place], [place] [address]Dr. Errol Flannery PROF 14(COMP METB)on 022 Albumin [Mass/Vol] 2.2 g/dL Critically low 3.4-5.0 [facility] Comment on above: Performed By: #### C MP ####[facility] [address]fdepcoyq[address] [place], [place] [address]Dr. Errol Flannery Albumin/Globulin [Mass ratio] 0.8 {ratio} Normal Comment on above: Performed By: #### C MP ####[facility] Qbgxygsewq[address] [place], [place] [address]Dr. Errol Flannery ALP [Catalytic activity/Vol] 64 U/L Normal 46-116 Comment on above: Performed By: #### C MP ####[facility] Ubxjcpiaia[address] [place], [place] [address]Dr. Errol Flannery ALT [Catalytic activity/Vol] 34 U/L Normal 14-59 Comment on above: Performed By: #### C MP ####[facility] Akrpnlxvqk[address] [place], [place] [address]Dr. Errol Flannery Anion gap [Moles/Vol] 8.1 mmol/L Normal Comment on above: Performed By: #### C MP ####[facility] [address]hcyzqamjs[address] [place], [place] [address]Dr. Errol Flannery AST [Catalytic activity/Vol] 14 U/L Critically low 15-37 Comment on above: Performed By: #### C MP ####[facility] Nipcghsgar[address] [place], [place] [address]Dr. Errol Flannery Bilirubin [Mass/Vol] 0.3 mg/dL Normal 0.2-1.0 Comment on above: Performed By: #### C MP ####[facility] Lsayvzaldp[address] [place], [place] [address]Dr. Errol Flannery Calcium [Mass/Vol] 8.1 mg/dL Critically low 8.5-10.1 [facility] Comment on above: Performed By: #### C MP ####[facility] Ncsnrxcmta3[address] [place] [id number]. Errol Flannery Chloride [Moles/Vol] 110 mmol/L Critically high 98-107 The [facility] Comment on above: Performed By: #### C MP ####[facility] Rxbtitkiih5[address] [place] [address]Dr. Errol Flannery CO2 [Moles/Vol] 28.0 mmol/L Normal 21.0-32.0 The [facility] Comment on above: Performed By: #### C MP ####[facility] Hsbsnmxyfn[address] [place] [address]Dr. Errol Flannery Creatinine [Mass/Vol] 1.00 mg/dL Normal 0.55-1.02 The [facility] Comment on above: Performed By: #### C MP ####[facility] Lidpjslphi6[address] [place] [address]Dr. Errol Flannery EGFR-AF GUATEMALAN >60 Normal >=60 The [facility] Comment on above: Performed By: #### C MP ####[facility] Yjkmlwmsji14[address] [place] [address]Dr. Errol Flannery EGFR-NON AF GUATEMALAN 52 mL/min/1.73m2 Critically low >=60 The [facility] Comment on above: Performed By: #### C MP ####[facility] Edunlnehwy[address] [place] [address]Dr. Errol Flannery Globulin (S) [Mass/Vol] 2.7 g/dL Normal Comment on above: Performed By: #### C MP ####[facility] Nxoineqluv5359 [place] [address]Dr. Errol Flannery Glucose [Mass/Vol] 88 mg/dL Normal 74-106 The [facility] Comment on above: Performed By: #### C MP ####[facility] Nbxdryrdyv07[address] [place] [address]Dr. Errol Flannery Potassium [Moles/Vol] 3.1 mmol/L Critically low 3.5-5.1 The [facility] Comment on above: Performed By: #### C MP ####[facility] Jgpkwlsuuc6207 [place] [address]Dr. Errol Flannery Protein [Mass/Vol] 4.9 g/dL Critically low 6.4-8.2 Th [facility] Comment on above: Performed By: #### C MP ####[facility] Ellpbbgmjh27[address] [place] [address]Dr. Errol Flannery Sodium [Moles/Vol] 143 mmol/L Normal 136-145 [facility] Comment on above: Performed By: #### C MP ####[facility] Wrframuxja65[address] [place] [address]Dr. Errol Flannery Urea nitrogen [Mass/Vol] 5.0 mg/dL Critically low 7.0-18.0 Comment on above: Performed By: #### C MP ####[facility] Qaxhayruug5[address] [place] [address]Dr. Errol Flannery Urea nitrogen/Creatinine [Mass ratio] 5.0 mg/mg Normal Comment on above: Performed By: #### C MP ####[facility] Pdgglxzpvt2[address] [place] [address]Dr. Errol Flannery CBC AUTO DIFFon 04-07-2022 BASO # 0.0 103/ul Normal 0.0-0.1 Comment on above: Performed By: #### L ACT #### [facility] [address] [place] [address] [address] Errol Flannery Basophils/100 WBC (Bld) 0.7 % Normal 0.2-2.0 Comment on above: Performed By: #### L ACT #### [facility] [address] [place] [address] [address] Errol Flannery EO # 0.1 103/ul Normal 0.0-0.7 Comment on above: Performed By: #### L ACT #### [facility] [address] [place] [address] [address] Errol Flannery Eosinophils/100 WBC (Bld) 2.0 % Normal 0.9-7.0 Comment on above: Performed By: #### L ACT #### [facility] [address] [place] [address] Dr. Errol Flannery Erythrocyte distribution width (RBC) [Ratio] 13.6 % Normal 11.0-15.0 Comment on above: Performed By: #### L ACT #### [facility] [address] [place] [address] Dr. Errol Flannery Hematocrit (Bld) [Volume fraction] 34.3 % Critically low 36.0-48.0 Comment on above: Performed By: #### L ACT #### [facility] [address] [place] [address] Dr. Errol Flannery Hemoglobin (Bld) [Mass/Vol] 11.1 g/dL Critically low 12.0-16.0 Comment on above: Performed By: #### L ACT #### [facility] [address] [place] [address] Dr. Errol Flannery IG # 0.02 10e3/ul Normal 0.00-0.03 Comment on above: Performed By: #### L ACT #### [facility] [address] [place] [address] Dr. Errol Flannery IG % 0.4 % Normal 0.0-0.5 Comment on above: Performed By: #### L ACT #### [facility] [address] [place] [address] Dr. Errol Flannery LYMPH # 1.4 103/ul Normal 1.2-3.8 [facility] Comment on above: Performed By: #### L ACT #### [facility] [address] [place] [address] Dr. Errol Flannery Lymphocytes/100 WBC (Bld) 30.4 % Normal 20.5-60.0 [facility] Comment on above: Performed By: #### L ACT #### [facility] [address] [place] [address] Dr. Errol Flannery MANUAL DIFF REQ NO Normal [facility] Comment on above: Performed By: #### L ACT #### [facility] [address] [place] [address] Dr. Errol Flannery MCH (RBC) [Entitic mass] 30.8 pg Normal 26.7-34.0 [facility] Comment on above: Performed By: #### L ACT #### [facility] [address] [place] [address] Dr. Errol Flannery MCHC (RBC) [Mass/Vol] 32.4 g/dL Normal 29.9-35.2 [facility] Comment on above: Performed By: #### L ACT #### [facility] [address] [place] [address] [address] Errol Flannery MCV (RBC) [Entitic vol] 95.3 fL Normal 81.0-99.0 Comment on above: Performed By: #### L ACT #### [facility] [address] [place] [address] Dr. Errol Flannery MONO # 0.4 103/ul Normal 0.3-0.8 Comment on above: Performed By: #### L ACT #### [facility] [address] [place] [address] Dr. Errol Flannery Monocytes/100 WBC (Bld) 9.3 % Normal 1.7-12.0 Comment on above: Performed By: #### L ACT #### [facility] [address] [place] [address] Dr. Errol Flannery NEUT # 2.6 103/ul Normal 1.4-6.5 [facility] Comment on above: Performed By: #### L ACT #### [facility] [address] [place] [address] Dr. Errol Flannery Neutrophils/100 WBC (Bld) 57.2 % Normal 43.0-75.0 [facility] Comment on above: Performed By: #### L ACT #### [facility] [address] [place] [address] Dr. Errol Flannery Platelet mean volume (Bld) [Entitic vol] 9.7 fL Normal 9.5-13.5 [facility] Comment on above: Performed By: #### L ACT #### [facility] [address] [place] [address] Dr. Errol Flannery PLT 220 103/ul Normal 150-450 [facility] Comment on above: Performed By: #### L ACT #### [facility] [address] [place] [address] [address] Errol Flannery RBC 3.60 106/ul Critically low 4.20-5.40 [facility] Comment on above: Performed By: #### L ACT #### [facility] [id number] [address] Errol Flannery WBC 4.6 103/ul Normal 4.0-11.0 Comment on above: Performed By: #### L ACT #### [facility] [address] [place] ABD/PELV W CONon [...] ALEXANDER DUMONT Date: 2022-04-07 12:50 Normal The [facility] PROF 14(COMP METB)on 04-07- 022 Albumin [Mass/Vol] 2.2 g/dL Critically low 3.4-5.0 Th e [facility] Comment on above: Performed By: #### C MP ####[facility] [address]jdqfxrr[address] [place] [address]Dr. Errol Flannery Albumin/Globulin [Mass ratio] 0.8 {ratio} Normal Comment on above: Performed By: #### C MP ####[facility] T[address]ngjgiuvp[address] [place] [address]Dr. Errol Flannery ALP [Catalytic activity/Vol] 70 U/L Normal 46-116 Comment on above: Performed By: #### C MP ####[facility] Xjyfohvaak[address] [place] [address]Dr. Errol Flannery ALT [Catalytic activity/Vol] 40 U/L Normal 14-59 Comment on above: Performed By: #### C MP ####[facility] Hpksttjuxe[address] [place] [address]Dr. Erorl Flannery Anion gap [Moles/Vol] 10.0 mmol/L Normal Comment on above: Performed By: #### C MP ####[facility] Eifqhconnl6[address] [place] [address]Dr. Errol Flannery AST [Catalytic activity/Vol] 16 U/L Normal 15-37 Comment on above: Performed By: #### C MP ####[facility] Cqscbnzoxd05[address] [place] [id number]. Errol Flannery Bilirubin [Mass/Vol] 0.4 mg/dL Normal 0.2-1.0 Comment on above: Performed By: #### C MP ####[facility] Rhnihgyxzm2290 [place] [id number]. Errol Flannery Calcium [Mass/Vol] 8.4 mg/dL Critically low 8.5-10.1 Th [facility] Comment on above: Performed By: #### C MP ####[facility] Aucecognab[address] [place] [id number]. Errol Flannery Chloride [Moles/Vol] 111 mmol/L Critically high 98-107 Comment on above: Performed By: #### C MP ####[facility] Dbvkyitoqe[address] [place], [place] [address]Dr. Errol Flannery CO2 [Moles/Vol] 26.3 mmol/L Normal 21.0-32.0 [facility] Comment on above: Performed By: #### C MP ####[facility] Fpjzbqyuru[address] [place], [place] [address]Dr. Errol Flannery Creatinine [Mass/Vol] 1.05 mg/dL Critically high 0.55-1.02 Comment on above: Performed By: #### C MP ####[facility] Y[address]zlmrsdd[address] [place], [place] [address]Dr. Errol Flannery EGFR-AF GUATEMALAN 60 mL/min/1.73m2 Normal >=60 [facility] Comment on above: Performed By: #### C MP ####[facility] Mambnwkcqd89[address] [place] [id number]. Errol Flannery EGFR-NON AF GUATEMALAN 50 mL/min/1.73m2 Critically low >=60 Comment on above: Performed By: #### C MP ####[facility] Xfatgmpqwj[address] [place], [place] [address]Dr. Errol Flannery Globulin (S) [Mass/Vol] 2.8 g/dL Normal Comment on above: Performed By: #### C MP ####[facility] Mjdilurvcm3[address] [place] [id number]. Errol Flannery Glucose [Mass/Vol] 95 mg/dL Normal 74-106 [facility] Comment on above: Performed By: #### C MP ####[facility] Ynzwmnizxw8820 [place] [id number]. Errol Flannery Potassium [Moles/Vol] 3.3 mmol/L Critically low 3.5-5.1 Comment on above: Performed By: #### C MP ####[facility] Ttfskaztof4739 [place] [id number]. Errol Flannery Protein [Mass/Vol] 5.0 g/dL Critically low 6.4-8.2 Th [facility] Comment on above: Performed By: #### C MP ####[facility] Tqzgufmexn[address] [place] [address]Dr. Errol Flannery Sodium [Moles/Vol] 144 mmol/L Normal 136-145 [facility] Comment on above: Performed By: #### C MP ####[facility] Difehxcenk80[address] [place] [id number]. Errol Flannery Urea nitrogen [Mass/Vol] 10.0 mg/dL Normal 7.0-18.0 Comment on above: Performed By: #### C MP ####[facility] Kcptbpipyi7[address] [place] [address]Dr. Errol Flannery Urea nitrogen/Creatinine [Mass ratio] 9.5 mg/mg Normal Comment on above: Performed By: #### C MP ####[facility] Bvqvvdoobs[address] [place] [id number]. Errol Flannery CBC AUTO DIFFon 04-06-2022 BASO # 0.0 103/ul Normal 0.0-0.1 Comment on above: Performed By: #### C BC #### [facility] [address] [id number] [address] Errol Flannery Basophils/100 WBC (Bld) 0.3 % Normal 0.2-2.0 Comment on above: Performed By: #### C BC #### [facility] [address] [place] [address] Dr. Errol Flannery EO # 0.0 103/ul Normal 0.0-0.7 Comment on above: Performed By: #### C BC #### [facility] [address] [place] [address] Dr. Errol Flannery Eosinophils/100 WBC (Bld) 0.4 % Critically low 0.9-7.0 Comment on above: Performed By: #### C BC #### [facility] [address] [place] [address] Dr. Errol Flannery Erythrocyte distribution width (RBC) [Ratio] 13.6 % Normal 11.0-15.0 Comment on above: Performed By: #### C BC #### [facility] [address] [place] [address] Dr. Errol Flannery Hematocrit (Bld) [Volume fraction] 35.7 % Critically low 36.0-48.0 Comment on above: Performed By: #### C BC #### [facility] [address] [place] [address] Dr. Errol Flannery Hemoglobin (Bld) [Mass/Vol] 11.5 g/dL Critically low 12.0-16.0 Comment on above: Performed By: #### C BC #### [facility] [address] [place] [address] Dr. Errol Flannery IG # 0.03 10e3/ul Normal 0.00-0.03 Comment on above: Performed By: #### C BC #### [facility] [address] [place] [address] Dr. Errol Flannery IG % 0.4 % Normal 0.0-0.5 [facility] Comment on above: Performed By: #### C BC #### [facility] [address] [place] [address] Dr. Errol Flannery LYMPH # 1.3 103/ul Normal 1.2-3.8 [facility] Comment on above: Performed By: #### C BC #### [facility] [address] [place] [address] [address] Errol Flannery Lymphocytes/100 WBC (Bld) 17.5 % Critically low 20.5-60.0 Comment on above: Performed By: #### C BC #### [facility] [address] [place] [address] [address] Errol Flannery MANUAL DIFF REQ NO Normal [facility] Comment on above: Performed By: #### C BC #### [facility] [address] [place] [address] Dr. Errol Flannery MCH (RBC) [Entitic mass] 30.5 pg Normal 26.7-34.0 Comment on above: Performed By: #### C BC #### [facility] [address] [place] [address] Dr. Errol Flannery MCHC (RBC) [Mass/Vol] 32.2 g/dL Normal 29.9-35.2 [facility] Comment on above: Performed By: #### C BC #### [facility] [address] [place] [address] Dr. Errol Flannery MCV (RBC) [Entitic vol] 94.7 fL Normal 81.0-99.0 Comment on above: Performed By: #### C BC #### [facility] [address] [place] [address] Dr. Errol Flannery MONO # 0.6 103/ul Normal 0.3-0.8 [facility] Comment on above: Performed By: #### C BC #### [facility] [address] [place] [address] Dr. Errol Flannery Monocytes/100 WBC (Bld) 8.5 % Normal 1.7-12.0 [facility] Comment on above: Performed By: #### C BC #### [facility] [address] [place] [address] Dr. Errol Flannery NEUT # 5.2 103/ul Normal 1.4-6.5 [facility] Comment on above: Performed By: #### C BC #### [facility] [address] [place] [address] [address] Errol Flannery Neutrophils/100 WBC (Bld) 72.9 % Normal 43.0-75.0 Comment on above: Performed By: #### C BC #### [facility] [address] [place] [address] [address] Errol Flannery Platelet mean volume (Bld) [Entitic vol] 9.9 fL Normal 9.5-13.5 Comment on above: Performed By: #### C BC #### [facility] [address] [place] [address] [address] Errol Flannery PLT 190 103/ul Normal 150-450 Comment on above: Performed By: #### C BC #### [facility] [address] [place] [address] Dr. Errol Flannery RBC 3.77 106/ul Critically low 4.20-5.40 [facility] Comment on above: Performed By: #### C BC #### [facility] [address] [place] [address] Dr. Errol Flannery WBC 7.2 103/ul Normal 4.0-11.0 Comment on above: Performed By: #### C BC #### [facility] [address] [place] [address] Dr. Errol Flannery PROF 14(COMP METB)on 022 Albumin [Mass/Vol] 2.1 g/dL Critically low 3.4-5.0 [facility] Comment on above: Performed By: #### C MP #### [facility] [address] [place] [address] Dr. Errol Flannery Albumin/Globulin [Mass ratio] 0.7 {ratio} Normal Comment on above: Performed By: #### C MP #### [facility] [address] [place] [address] Dr. Errol Flannery ALP [Catalytic activity/Vol] 74 U/L Normal 46-116 Comment on above: Performed By: #### C MP #### [facility] [address] [place], [place] [id number] Dr. Errol Flannery ALT [Catalytic activity/Vol] 52 U/L Normal 14-59 Comment on above: Performed By: #### C MP #### [facility] [address] [place] [address] Dr. Errol Flannery Anion gap [Moles/Vol] 14.0 mmol/L Normal Comment on above: Performed By: #### C MP #### [facility] [address] [address] [address] Errol Flannery AST [Catalytic activity/Vol] 24 U/L Normal 15-37 Comment on above: Performed By: #### C MP #### [facility] [address] [place] [address] Dr. Errol Flannery Bilirubin [Mass/Vol] 0.5 mg/dL Normal 0.2-1.0 Comment on above: Performed By: #### C MP #### [facility] [address] [place] [address] Dr. Errol Flannery Calcium [Mass/Vol] 8.1 mg/dL Critically low 8.5-10.1 [facility] Comment on above: Performed By: #### C MP #### [facility] [address] [place] [address] Dr. Errol Flannery Chloride [Moles/Vol] 109 mmol/L Critically high 98-107 Comment on above: Performed By: #### C MP #### [facility] [address] [place] [address] Dr. Errol Flannery CO2 [Moles/Vol] 24.6 mmol/L Normal 21.0-32.0 [facility] Comment on above: Performed By: #### C MP #### [facility] [address] [place] [address] Dr. Errol Flannery Creatinine [Mass/Vol] 0.93 mg/dL Normal 0.55-1.02 Comment on above: Performed By: #### C MP #### [facility] [address] [place] [address] Dr. Errol Flannery EGFR-AF GUATEMALAN >60 Normal >=60 [facility] Comment on above: Performed By: #### C MP #### [facility] [address] [address] [address] Errol Flannery EGFR-NON AF GUATEMALAN 57 mL/min/1.73m2 Critically low >=60 Comment on above: Performed By: #### C MP #### [facility] [address] [address] [address] Errol Flannery Globulin (S) [Mass/Vol] 3.0 g/dL Normal Comment on above: Performed By: #### C MP #### [facility] [address] [address] [address] Errol Flannery Glucose [Mass/Vol] 93 mg/dL Normal 74-106 [facility] Comment on above: Performed By: #### C MP #### [facility] [address] [address] [address] Errol Flannery Potassium [Moles/Vol] 3.6 mmol/L Normal 3.5-5.1 Comment on above: Performed By: #### C MP #### [facility] [address] [address] [address] Errol Flannery Protein [Mass/Vol] 5.1 g/dL Critically low 6.4-8.2 [facility] Comment on above: Performed By: #### C MP #### [facility] [address] [address] [address] Errol Flannery Sodium [Moles/Vol] 141 mmol/L Normal 136-145 [facility] Comment on above: Performed By: #### C MP #### [facility] [address] [address] [address] Errol Flannery Urea nitrogen [Mass/Vol] 11.0 mg/dL Normal 7.0-18.0 Comment on above: Performed By: #### C MP #### [facility] [address] [address] [address] Errol Flannery Urea nitrogen/Creatinine [Mass ratio] 11.8 mg/mg Normal Comment on above: Performed By: #### C MP #### [facility] [address] [address] [address] Errol Flannery XR ABD FLAT UP_PA [...] ALEXANDER DUMONT Date: 2022-04-06 11:49 Normal [facility] CBC AUTO DIFFon 04-05-2022 BASO # 0.0 103/ul Normal 0.0-0.1 Comment on above: Performed By: #### L ACT #### [facility] [address] [address] [address] Errol Flannery Basophils/100 WBC (Bld) 0.2 % Normal 0.2-2.0 [facility] Comment on above: Performed By: #### L ACT #### [facility] [address] [address] [address] Errol Flannery EO # 0.0 103/ul Normal 0.0-0.7 [facility] Comment on above: Performed By: #### L ACT #### [facility] [address] [address] [address] Errol Flannery Eosinophils/100 WBC (Bld) 0.1 % Critically low 0.9-7.0 [facility] Comment on above: Performed By: #### L ACT #### [facility] [address] [address] [address] Errol Flannery Erythrocyte distribution width (RBC) [Ratio] 13.6 % Normal 11.0-15.0 [facility] Comment on above: Performed By: #### L ACT #### [facility] [address] [address] [address] Errol Flannery Hematocrit (Bld) [Volume fraction] 37.1 % Normal 36.0-48.0 Comment on above: Performed By: #### L ACT #### [facility] [address] [address] [address] Errol Flannery Hemoglobin (Bld) [Mass/Vol] 11.9 g/dL Critically low 12.0-16.0 Comment on above: Performed By: #### L ACT #### [facility] [address] [address] [address] Errol Flannery IG # 0.04 10e3/ul Critically high 0.00-0.03 [facility] Comment on above: Performed By: #### L ACT #### [facility] [address] [place] [address] Dr. Errol Flannery IG % 0.4 % Normal 0.0-0.5 Comment on above: Performed By: #### L ACT #### [facility] [address] [place] [address] Dr. Errol Flannery LYMPH # 1.2 103/ul Normal 1.2-3.8 Comment on above: Performed By: #### L ACT #### [facility] [address] [place] [address] Dr. Errol Flannery Lymphocytes/100 WBC (Bld) 11.1 % Critically low 20.5-60.0 Comment on above: Performed By: #### L ACT #### [facility] [address] [address] [address] Errol Flannery MANUAL DIFF REQ NO Normal [facility] Comment on above: Performed By: #### L ACT #### [facility] [address] [place] [address] Dr. Errol Flannery MCH (RBC) [Entitic mass] 30.4 pg Normal 26.7-34.0 Comment on above: Performed By: #### L ACT #### [facility] [address] [address] [address] Errol Flannery MCHC (RBC) [Mass/Vol] 32.1 g/dL Normal 29.9-35.2 Comment on above: Performed By: #### L ACT #### [facility] [address] [address] [address] Errol Flannery MCV (RBC) [Entitic vol] 94.9 fL Normal 81.0-99.0 Comment on above: Performed By: #### L ACT #### [facility] [address] [address] [address] Errol Flannery MONO # 0.8 103/ul Normal 0.3-0.8 Comment on above: Performed By: #### L ACT #### [facility] [address] [address] [address] Errol Flannery Monocytes/100 WBC (Bld) 7.7 % Normal 1.7-12.0 Comment on above: Performed By: #### L ACT #### [facility] [address] [address] [address] Errol Flannery NEUT # 8.4 103/ul Critically high 1.4-6.5 [facility] Comment on above: Performed By: #### L ACT #### [facility] [address] [address] [address] Errol Flannery Neutrophils/100 WBC (Bld) 80.5 % Critically high 43.0-75.0 Comment on above: Performed By: #### L ACT #### [facility] [address] [address] [address] Errol Flannery Platelet mean volume (Bld) [Entitic vol] 9.4 fL Critically low 9.5-13.5 Comment on above: Performed By: #### L ACT #### [facility] [address] [address] [address] Errol Flannery PLT 197 103/ul Normal 150-450 [facility] Comment on above: Performed By: #### L ACT #### [facility] [address] [address] [address] Errol Flannery RBC 3.91 106/ul Critically low 4.20-5.40 [facility] Comment on above: Performed By: #### L ACT #### [facility] [address] [address] [address] Errol Flannery WBC 10.5 103/ul Normal 4.0-11.0 Comment on above: Performed By: #### L ACT #### [facility] [address] [address] [address] Errol Flannery PROF 14(COMP METB)on 022 Albumin [Mass/Vol] 2.4 g/dL Critically low 3.4-5.0 [facility] Comment on above: Performed By: #### C MP ####[facility] [address] [address]Dr. Errol Flannery Albumin/Globulin [Mass ratio] 0.8 {ratio} Normal Comment on above: Performed By: #### C MP ####[facility] [address] [address]Dr. Errol Flannery ALP [Catalytic activity/Vol] 94 U/L Normal 46-116 Comment on above: Performed By: #### C MP ####[facility] [address] [address]Dr. Errol Flannery ALT [Catalytic activity/Vol] 87 U/L Critically high 14-59 [facility] Comment on above: Performed By: #### C MP ####[facility] [address] [place] [address]Dr. Errol Flannery Anion gap [Moles/Vol] 8.3 mmol/L Normal Comment on above: Performed By: #### C MP ####[facility] [address] [address]Dr. Errol Flannery AST [Catalytic activity/Vol] 47 U/L Critically high 15-37 Comment on above: Performed By: #### C MP ####[facility] [address] [place] [address] [address]Dr. Errol Flannery Bilirubin [Mass/Vol] 0.6 mg/dL Normal 0.2-1.0 [facility] Comment on above: Performed By: #### C MP ####[facility] [address] [place], [place] [address]Dr. Errol Flannery Calcium [Mass/Vol] 8.3 mg/dL Critically low 8.5-10.1 Th e [facility] Comment on above: Performed By: #### C MP ####[facility] [address] [place], [place] [address]Dr. Errol Prudencio Chloride [Moles/Vol] 106 mmol/L Normal 98-107 [facility] Comment on above: Performed By: #### C MP ####[facility] [address] [place], [place] [address]Dr. Errol Prudencio CO2 [Moles/Vol] 29.3 mmol/L Normal 21.0-32.0 The [facility] Comment on above: Performed By: #### C MP ####[facility] [address] [place], [place] [address]Dr. Errol Prudencio Creatinine [Mass/Vol] 0.97 mg/dL Normal 0.55-1.02 Comment on above: Performed By: #### C MP ####[facility] [address] [place], [place] [address]Dr. Pammissy Prudencio EGFR-AF GUATEMALAN >60 Normal >=60 The [facility] Comment on above: Performed By: #### C MP ####[facility] [address] [place], [place] [address]Dr. Pammissy Prudencio EGFR-NON AF GUATEMALAN 54 mL/min/1.73m2 Critically low >=60 [facility] Comment on above: Performed By: #### C MP ####[facility] [address] [place], [place] [address]Dr. Errol Flannery Globulin (S) [Mass/Vol] 3.1 g/dL Normal [facility] Comment on above: Performed By: #### C MP ####[facility] [address] [place], [place] [address]Dr. Errol Flannery Glucose [Mass/Vol] 100 mg/dL Normal 74-106 [facility] Comment on above: Performed By: #### C MP ####[facility] [address] [address]Dr. Errol Flannery Potassium [Moles/Vol] 3.6 mmol/L Normal 3.5-5.1 Comment on above: Performed By: #### C MP ####[facility] [address] [address]Dr. Errol Flannery Protein [Mass/Vol] 5.5 g/dL Critically low 6.4-8.2 Th e [facility] Comment on above: Performed By: #### C MP ####[facility] [address] [address]Dr. Errol Flannery Sodium [Moles/Vol] 140 mmol/L Normal 136-145 [facility] Comment on above: Performed By: #### C MP ####[facility] [address] [address]Dr. Errol Flannery Urea nitrogen [Mass/Vol] 15.0 mg/dL Normal 7.0-18.0 Comment on above: Performed By: #### C MP ####[facility] [address] [address]Dr. Errol Flannery Urea nitrogen/Creatinine [Mass ratio] 15.5 mg/mg Normal Comment on above: Performed By: #### C MP ####[facility] [address] [address]Dr. Errol Flannery XR ABD FLAT_UPon 04-05-2022 XR ABD FLAT_UP [...] ALEXANDER DUMONT Date: 2022-04-05 07:15 Normal [facility] CBC AUTO DIFFon 04-04-2022 BASO # 0.0 103/ul Normal 0.0-0.1 [facility] Comment on above: Performed By: #### C BC #### [facility] [address] [address] [address] Errol Flannery Basophils/100 WBC (Bld) 0.2 % Normal 0.2-2.0 [facility] Comment on above: Performed By: #### C BC #### [facility] [address] [place] [address] Dr. Errol Flannery EO # 0.0 103/ul Normal 0.0-0.7 [facility] Comment on above: Performed By: #### C BC #### [facility] [address] [place] [address] Dr. Errol Flannery Eosinophils/100 WBC (Bld) 0.0 % Critically low 0.9-7.0 Comment on above: Performed By: #### C BC #### [facility] [address] [place] [address] Dr. Errol Flannery Erythrocyte distribution width (RBC) [Ratio] 13.6 % Normal 11.0-15.0 Comment on above: Performed By: #### C BC #### [facility] [address] [place] [address] Dr. Errol Flannery Hematocrit (Bld) [Volume fraction] 44.1 % Normal 36.0-48.0 Comment on above: Performed By: #### C BC #### [facility] [address] [place] [address] Dr. Errol Flannery Hemoglobin (Bld) [Mass/Vol] 14.5 g/dL Normal 12.0-16.0 [facility] Comment on above: Performed By: #### C BC #### [facility] [address] [place] [address] Dr. Errol Flannery IG # 0.07 10e3/ul Critically high 0.00-0.03 [facility] Comment on above: Performed By: #### C BC #### [facility] [address] [place] [address] Dr. Errol Flannery IG % 0.4 % Normal 0.0-0.5 [facility] Comment on above: Performed By: #### C BC #### [facility] [address] [place] [address] Dr. Errol Flannery LYMPH # 1.4 103/ul Normal 1.2-3.8 [facility] Comment on above: Performed By: #### C BC #### [facility] [address] [place] [address] Dr. Errol Flannery Lymphocytes/100 WBC (Bld) 7.4 % Critically low 20.5-60.0 [facility] Comment on above: Performed By: #### C BC #### [facility] [address] [place] [address] Dr. Errol Flannery MANUAL DIFF REQ NO Normal [facility] Comment on above: Performed By: #### C BC #### [facility] [address] [place] [address] Dr. Errol Flannery MCH (RBC) [Entitic mass] 30.7 pg Normal 26.7-34.0 Comment on above: Performed By: #### C BC #### [facility] [address] [place] [address] Dr. Errol Flannery MCHC (RBC) [Mass/Vol] 32.9 g/dL Normal 29.9-35.2 [facility] Comment on above: Performed By: #### C BC #### [facility] [address] [place] [address] Dr. Errol Flannery MCV (RBC) [Entitic vol] 93.2 fL Normal 81.0-99.0 [facility] Comment on above: Performed By: #### C BC #### [facility] [address] [place] [address] Dr. Errol Flannery MONO # 1.5 103/ul Critically high 0.3-0.8 [facility] Comment on above: Performed By: #### C BC #### [facility] [address] [place] [address] Dr. Errol Flannery Monocytes/100 WBC (Bld) 7.8 % Normal 1.7-12.0 [facility] Comment on above: Performed By: #### C BC #### [facility] [address] [place] [address] Dr. Errol Flannery NEUT # 15.6 103/ul Critically high 1.4-6.5 [facility] Comment on above: Performed By: #### C BC #### [facility] [address] [place] [address] Dr. rErol Flannery Neutrophils/100 WBC (Bld) 84.2 % Critically high 43.0-75.0 Comment on above: Performed By: #### C BC #### [facility] [address] [place] [address] Dr. Errol Flannery Platelet mean volume (Bld) [Entitic vol] 9.6 fL Normal 9.5-13.5 [facility] Comment on above: Performed By: #### C BC #### [facility] [address] [place] [address] Dr. Errol Flannery PLT 260 103/ul Normal 150-450 [facility] Comment on above: Performed By: #### C BC #### [facility] [address] [place] [address] Dr. Errol Flannery RBC 4.73 106/ul Normal 4.20-5.40 [facility] Comment on above: Performed By: #### C BC #### [facility] [address] [place] [address] Dr. Errol Flannery WBC 18.5 103/ul Critically high 4.0-11.0 The [facility] Comment on above: Performed By: #### C BC #### [facility] [address] [place] [address] ABD/PELV W CONon 04-04-20 CT ABD/PELV W CON EXAMINATION: CT ABD/PELV [...] LUZ DAHL Date: 2022-04-04 12:09 Normal [facility] Covid-19 PCR ([facility])on 03-19 SARS-CoV-2 (COVID-19) RNA NELLIE+probe Ql (Unsp spec) Not detected Normal NOT DETECTED [facility] Comment on above: Result Comment: When diagnostic [...] for this test is supported by the Cooling System Operator of Health and Human Service's declaration that [...] used). Performed By: #### L ACT #### [facility] [address] [place] [address] Dr. Errol Flannery ER URINE PROFILEon 2 Bilirubin Ql (U) Negative Normal NEGATIVE [facility] Comment on above: Performed By: #### U MICRO, ERUR #### [facility] [address] [place], [place] [address] Dr. Errol Flannery Clarity (U) SL CLOUDY Abnormal CLEAR [facility] Comment on above: Performed By: #### U MICRO, ERUR #### [facility] [address] [address] [address] Errol Flannery Color (U) YELLOW Normal YELLOW Comment on above: Performed By: #### U MICRO, ERUR #### [facility] [address] [address] [address] Errol JAMES A micrscopic examination will be performed if indicated. Normal [facility] Comment on above: Performed By: #### U MICRO, ERUR #### [facility] [address] [address] [address] Errol Flannery Glucose Ql (U) Negative Normal NEGATIVE [facility] Comment on above: Performed By: #### U MICRO, ERUR #### [facility] [address] [place] [address] Dr. Errol Flannery Hemoglobin Ql (U) TRACE-INTACT Abnormal NEGATIVE [facility] Comment on above: Performed By: #### U MICRO, ERUR #### [facility] [address] [place] [address] Dr. Errol Flannery Ketones Ql (U) Negative Normal NEGATIVE [facility] Comment on above: Performed By: #### U MICRO, ERUR #### [facility] [address] [place] [address] Dr. Errol Flannery LEUKOCYTES TRACE Abnormal NEGATIVE Comment on above: Performed By: #### U MICRO, ERUR #### [facility] [address] [place] [address] Dr. Errol Flannery Nitrite Ql (U) Negative Normal NEGATIVE [facility] Comment on above: Performed By: #### U MICRO, ERUR #### [facility] [address] [address] [address] Errol Flannery pH (U) 8.0 [pH] Normal 5-9 Comment on above: Performed By: #### U MICRO, ERUR #### [facility] [address] [place] [address] Dr. Errol Flannery SPEC GRAVITY 1.010 Normal 1.005-<=1.025 [facility] Comment on above: Performed By: #### U MICRO, ERUR #### [facility] [address] [address] [address] Errol Flannery UA PROTEIN Negative Normal NEGATIVE/ TRACE [facility] Comment on above: Performed By: #### U MICRO, ERUR #### [facility] [address] [address] [address] Errol Flannery UR MICRO IND INDICATED Normal Comment on above: Performed By: #### U MICRO, ERUR #### [facility] [address] [address] [address] Errol Flannery Urobilinogen Qn (U) 0.2 {Jordyn'U}/dL Normal 0.2 - 1. 0 Comment on above: Performed By: #### U MICRO, ERUR #### [facility] [address] [place] [address] Dr. Errol Flannery LACTATE/LACTIC ACIDon 2021 Lactate [Moles/Vol] 1.3 mmol/L Normal 0.4-1.9 [facility] Comment on above: Performed By: #### L ACT ####[facility] [address] [address]Dr. Errol Flannery PROF 14(COMP METB)on 022 Albumin [Mass/Vol] 3.3 g/dL Critically low 3.4-5.0 [facility] Comment on above: Performed By: #### C BC #### [facility] [address] [place] [address] Dr. Errol Flannery Albumin/Globulin [Mass ratio] 0.9 {ratio} Normal Comment on above: Performed By: #### C BC #### [facility] [address] [address] [address] Errol Flannery ALP [Catalytic activity/Vol] 109 U/L Normal 46-116 Comment on above: Performed By: #### C BC #### [facility] [address] [place] [address] Dr. Errol Flannery ALT [Catalytic activity/Vol] 40 U/L Normal 14-59 Comment on above: Performed By: #### C BC #### [facility] [address] [address] [address] Errol Flannery Anion gap [Moles/Vol] 10.4 mmol/L Normal Comment on above: Performed By: #### C BC #### [facility] [address] [address] [address] Errol Flannery AST [Catalytic activity/Vol] 34 U/L Normal 15-37 Comment on above: Performed By: #### C BC #### [facility] [address] [address] [address] Errol Flannery Bilirubin [Mass/Vol] 0.8 mg/dL Normal 0.2-1.0 Comment on above: Performed By: #### C BC #### [facility] [address] [address] [address] Errol Flannery Calcium [Mass/Vol] 8.8 mg/dL Normal 8.5-10.1 [facility] Comment on above: Performed By: #### C BC #### [facility] [address] [address] [address] Errol Flannery Chloride [Moles/Vol] 101 mmol/L Normal 98-107 Comment on above: Performed By: #### C BC #### [facility] [address] [address] [address] Errol Flannery CO2 [Moles/Vol] 30.1 mmol/L Normal 21.0-32.0 [facility] Comment on above: Performed By: #### C BC #### [facility] [address] [address] [address] Errol Flannery Creatinine [Mass/Vol] 1.36 mg/dL Critically high 0.55-1.02 Comment on above: Performed By: #### C BC #### [facility] [address] [address] [address] Errol Flannery EGFR-AF GUATEMALAN 45 mL/min/1.73m2 Critically low >=60 [facility] Comment on above: Performed By: #### C BC #### [facility] [address] [address] [address] Errol Flannery EGFR-NON AF GUATEMALAN 37 mL/min/1.73m2 Critically low >=60 Comment on above: Performed By: #### C BC #### [facility] [address] [address] [address] Errol Flannery Globulin (S) [Mass/Vol] 3.6 g/dL Normal Comment on above: Performed By: #### C BC #### [facility] [address] [address] [address] Errol Flannery Glucose [Mass/Vol] 107 mg/dL Critically high 74-106 [facility] Comment on above: Performed By: #### C BC #### [facility] [address] [address] [address] Errol Flannery Potassium [Moles/Vol] 3.5 mmol/L Normal 3.5-5.1 Comment on above: Performed By: #### C BC #### [facility] [address] [address] [address] Errol Flannery Protein [Mass/Vol] 6.9 g/dL Normal 6.4-8.2 [facility] Comment on above: Performed By: #### C BC #### [facility] [address] [address] [address] Errol Flannery Sodium [Moles/Vol] 138 mmol/L Normal 136-145 [facility] Comment on above: Performed By: #### C BC #### [facility] [address] [address] [address] Errol Flannery Urea nitrogen [Mass/Vol] 18.0 mg/dL Normal 7.0-18.0 Comment on above: Performed By: #### C BC #### [facility] [address] [place] [address] Dr. Errol Flannery Urea nitrogen/Creatinine [Mass ratio] 13.2 mg/mg Normal Comment on above: Performed By: #### C BC #### [facility] [address] [address] [address] Errol Flannery URINE MICROSCOPIC ONLYon BACTERIA NONE SEEN Normal NONE SEEN The [facility] Comment on above: Performed By: #### U MICRO, ERUR ####[facility] [address] [address]Dr. Errol Flannery Bacteria identified Cx Nom (U) NOT INDICATED Normal [facility] Comment on above: Performed By: #### U MICRO, ERUR ####[facility] [address] [address]Dr. Errol Flannery CAST NONE SEEN Normal NONE SEEN [facility] Comment on above: Performed By: #### U MICRO, ERUR ####[facility] [address] [address]Dr. Errol Flannery Crystals LM Nom (Urine sed) NONE SEEN Normal NONE SEEN [facility] Comment on above: Performed By: #### U MICRO, ERUR ####[facility] [address] [address]Dr. Errol Flannery Epithelial cells LM Ql (Urine sed) MANY Abnormal NONE SEEN /RARE [facility] Comment on above: Performed By: #### U MICRO, ERUR ####[facility] [address] [place], [place] [address]Dr. Errol Flannery MUCOUS NONE SEEN Normal NONE SEEN The [facility] Comment on above: Performed By: #### U MICRO, ERUR ####[facility] [address] [address]Dr. Errol Flannery RBC 0-2 Normal 0-2 [facility] Comment on above: Performed By: #### U MICRO, ERUR ####[facility] [address] [address]Dr. Errol Flannery WBC 0-2 Abnormal NONE SEEN The [facility] Comment on above: Performed By: #### U MICRO, ERUR ####[facility] [address] [address]Dr. Errol Flannery METHYLMALONIC ACID (MMA)on 0 01-07-2022 Methylmalonic Acid, Serum 252 nmol/L Normal 0-378 [facility] Comment on above: Performed By: #### M MA2 ####[facility] [address] [place] [id number] Flannery TSHon 12-30-2021 TSH 2.969 uIU/mL Normal 0.470-4.680 The [facility] Comment on above: Performed By: #### T SH ####[facility] [address] [place] [id number] Flannery TSH RANGE SEE BELOW Normal Comment on above: Result Comment: <0.3 4 UIU/ml HYPERTHYROID 0.34-5.60 UIU/ml EUTHYROID >5.60 UIU/ml HYPOTHYROID Performed By: #### T SH ####[facility] [address] [address]DrElana Flannery VIT B12 AND FOLATEon 022 Cobalamin (Vitamin B12) [Mass/Vol] 466.0 pg/mL Normal 239.0-931.0 Comment on above: Performed By: #### B 12FOL #### [facility] [address] [address] [address] Errol Flannery FOLATE >20.00 Normal >=2.76 [facility] Comment on above: Performed By: #### B 12FOL #### [facility] [id number] Errol Flannery [facility] CARDIAC STRESS/REST INJE CTIONon 09-22-2021 [facility] CARDIAC STRESS/REST INJECTION Patient Name: SHAYNA GARCIA STUDY: MYOCARDIAL PERFUSION STRESS TEST WITH LEXISCAN Performing facility: [facility], [address] [place] [address], [address], [place] [id number] [facility] Provider: Keith Claire MD, FACC PCP: Dr. Martha AVINA Supervising provider: Renaldo Jennings MD, FACC INDICATION: Chest Pain; HTN Chest Pain; Chest Pain; HISTORY: Gender: F; Age: 86 y/o ; Height: 0 cm; Weight: 0 kg. HTN; Chest Pain; Denies smoking. COMPARISON: No comparison. ACCESSION NUMBER(S): [id number]; [id number]; [id number] ORDERING CLINICIAN: VASQUEZ CLAIRE TECHNIQUE: ONE DAY [...] Electronically signed by: RENALDO JENNINGS MD Normal [facility] No Panel Informationon 09-22 Normal [facility] y 250 DO Work Phone: Falls Risk Screeningon 08-17 Fall risk assessment b) One or more falls in the last year [facility] y 250 DO Work Phone: Tobacco use status CPHS b) No [facility] y 250 DO Work Phone: Office Visit [...] 17Aug2021 08:58AM Heart Rate73, L Brachial Artery Sklephis461, RUE, Sitting Wbapqpudy74, RUE, Sitting Height5 ft Iukgnz355 lb BMI Boqosrecjx30.25 kg/m2 BSA Calculated1.7 Tobacco Useb) No Fall [...] 01-17-2019 XR hip LT min 2V(w/wo pelvis)* [facility] [place] [address] [place] [address] XRay Report Signed Patient: Shayna Garcia MR#: [id number] : 1935 Acct:[id number] Age/Sex: 83 / F ADM Date: 01/17/19 Loc: [facility] Room: Type: [facility] CLI Attending Dr: Daniel Domínguez MD Ordering Provider: [...] Zechariah Arvizu M.D.01/17/2019 3:28 PM Dictation Location: [place] [address] Transcribed By: [facility] 01/17/19 1528 Dictated By: Zechariah Arvizu II, MD 01/17/19 1527 Signed By: 01/17/19 1528 Normal [facility] Vital Signs Date Time Vital Sign Value Performing Clinician Facility 08-23-2023 11:45-0500 Body height 165.1 cm Moustapha Avina Other [employer] Other 08-23-2023 11:45-0500 Body mass index (BMI) [Ratio] 24.63 kg/m2 Moustapha Ball Other [employer] Other 08-23-2023 11:45-0500 Body weight 67.13 kg Moustapha Ball Other [employer] Other 08-23-2023 11:45-0500 Diastolic blood pressure 81 mm[Hg] Moustapha Ball Other [employer] Other 08-23-2023 11:45-0500 Respiratory rate 12 /min Moustapha Ball Other [employer] Other 08-23-2023 11:45-0500 Systolic blood pressure 134 mm[Hg] Moustapha Ball Other [employer] Other 08-17-2023 09:00-0500 Body height 165.1 cm Moustapha Ball Other [employer] Other 08-17-2023 09:00-0500 Body mass index (BMI) [Ratio] 25.16 kg/m2 Moustapha Ball Other [employer] Other 08-17-2023 09:00-0500 Body weight 68.58 kg Moustapha Ball Other [employer] Other 08-17-2023 09:00-0500 Diastolic blood pressure 93 mm[Hg] Moustapha Ball Other [employer] Other 08-17-2023 09:00-0500 Respiratory rate 12 /min Moustapha Ball Other [employer] Other 08-17-2023 09:00-0500 Systolic blood pressure 158 mm[Hg] Moustapha Ball Other [employer] Other 12-21-2022 11:30-0400 Body height 165.1 cm Moustapha Ball Other [employer] Other 12-21-2022 11:30-0400 Body mass index (BMI) [Ratio] 25.19 kg/m2 Moustapha Ball Other [employer] Other 12-21-2022 11:30-0400 Body weight 68.68 kg Moustapha Ball Other [employer] Other 12-21-2022 11:30-0400 Diastolic blood pressure Moustapha Ball Other [employer] Other 12-21-2022 11:30-0400 Respiratory rate 16 /min Moustapha Ball Other [employer] Other 12-21-2022 11:30-0400 Systolic blood pressure 112 mm[Hg] Moustapha Ball Other [employer] Other 11-24-2022 09:27-0500 Blood Pressure Location KEIKO ROCK [facility] 11-24-2022 09:27-0500 Diastolic blood pressure 86 mm[Hg] KEIKO LEX [facility] 11-24-2022 09:27-0500 Heart rate 70 /min KEIKO LEX [facility] 11-24-2022 09:27-0500 Systolic blood pressure 127 mm[Hg] KEIKO LEX [facility] 11-23-2022 10:00-0500 Body height 165.1 cm Margarito Harvey Other [employer] Other 11-23-2022 10:00-0500 Body mass index (BMI) [Ratio] 31.61 kg/m2 Margarito Harvey Other [employer] Other 11-23-2022 10:00-0500 Body weight 86.18 kg Margarito Harvey Other [facility] [employer] Other 11-23-2022 10:00-0500 Diastolic blood pressure 96 mm[Hg] Margarito Brucey Other [facility] [employer] Other 11-23-2022 10:00-0500 Systolic blood pressure 152 mm[Hg] Margarito Harvey Other [facility] [employer] Other 09-22-2022 08:22-0500 Blood Pressure Location Cassidy Lue [facility] 09-22-2022 08:22-0500 Diastolic blood pressure 83 mm[Hg] Cassidy Lue [facility] 09-22-2022 08:22-0500 Heart rate 70 /min Cassidy Lue [facility] 09-22-2022 08:22-0500 Respiratory rate 16 /min Cassidy Lue [facility] 09-22-2022 08:22-0500 Systolic blood pressure 130 mm[Hg] Cassidy Lue [facility] 09-22-2021 12:00-0500 74 1 Moustapha Avina Work Phone: [facility] [place] Work Phone: Comment on above: [id number] 08-17-2021 08:58-0500 Body height 152.4 cm Moustapha Beth Ball Work Phone: [facility] 250 DO Work Phone: 08-17-2021 08:58-0500 Body mass index (BMI) [Ratio] 31.25 kg/m2 Moustapha Beth Ball Work Phone: [facility] [employer] 250 DO Work Phone: 08-17-2021 08:58-0500 Body surface area Derived from formula 1.7 m2 Mosutapha Beth Ball Work Phone: [facility] [employer] 250 DO Work Phone: 08-17-2021 08:58-0500 Body weight 72.58 kg Moustapha Beth Ball Work Phone: [facility] [employer] 250 DO Work Phone: 08-17-2021 08:58-0500 Diastolic blood pressure 84 mm[Hg] Moustapha Beth Ball Work Phone: [facility] [employer] 250 DO Work Phone: 08-17-2021 08:58-0500 Heart rate 73 /min Moustapha Beth Ball Work Phone: [facility] [employer] 250 DO Work Phone: 08-17-2021 08:58-0500 Systolic blood pressure 136 mm[Hg] Moustapha Avina Work Phone: [facility] [employer] 250 DO Work Phone: Encounters Encounter Date Encounter Type Care Provider Facility Start: 11-27-2024 ambulatory KEIKO ROCK Facili ty:[facility]ini Start: 11-22-2023 End: 11-23-2023 ambulatory KEIKO ROCK Facility:[facility] Start: 10-17-2023 End: 10-17-2023 ambulatory Moustapha Avina Other [employer] Other Start: 10-17-2023 Telephone encounter [facility] Start: 08-25-2023 End: 08-25-2023 ambulatory Moustapha Avina Other [employer] Other Start: 08-25-2023 Telephone encounter Moustapha Avina [facility] Start: 08-23-2023 End: 08-23-2023 ambulatory Moustapha Avina Other [employer] Other Start: 08-23-2023 Office outpatient visit 15 minutes Moustapha Avina [facility] Start: 08-22-2023 End: 08-22-2023 ambulatory Moustapha Avina Other [employer] Other Start: 08-22-2023 Telephone encounter Moustapha Avina [facility] Start: 08-17-2023 End: 08-17-2023 ambulatory Moustapha Avina Other [employer] Other Start: 08-17-2023 Patient encounter procedure Moustapha Avina [facility] Start: 07-10-2023 End: 07-10-2023 ambulatory Moustapha Avina Other [employer] Other Start: 07-10-2023 Telephone encounter Moustapha Avina [facility] Start: 05-09-2023 End: 05-09-2023 ambulatory Moustapha Avina Other [employer] Other Start: 05-09-2023 Telephone encounter Moustapha Avina [facility] Start: 05-04-2023 End: 05-05-2023 ambulatory Cassidy Parks Facility:[facility] Start: 01-25-2023 End: 01-25-2023 ambulatory Moustapha Avina Other [employer] Other Start: 01-25-2023 Telephone encounter Moustapha ANGUIANO [facility] [employer] Start: 12-21-2022 End: 12-21-2022 ambulatory Moustapha Avina Other [employer] Other Start: 12-21-2022 Office outpatient visit 25 minutes Moustapha Avina [facility] Start: 11-24-2022 End: 11-25-2022 ambulatory KEIKO ROCK Facility:[facility] Start: 11-24-2022 End: 11-24-2022 Patient encounter procedure KEIKO ROCK [facility] Start: 11-23-2022 End: 11-23-2022 ambulatory Margarito Harvey Other [employer] Other Start: 11-23-2022 [facility] visit new patient Margarito Harvey [facility] Start: 11-11-2022 End: 11-11-2022 ambulatory Moustapha Avina Other [employer] Other Start: 11-11-2022 Telephone encounter Moustapha Avina Micaela Avina [facility] Start: 10-15-2022 End: 10-16-2022 ambulatory CASSIDY Huitron Facility:[facility] Start: 09-22-2022 End: 09-22-2022 Lab Drop off Cassidy Parks [facility] Start: 09-22-2022 End: 09-22-2022 Patient encounter procedure Cassidy Parks [facility] Start: 06-08-2022 End: 06-09-[address] MOUSTAPHA AVINA Facility:[facility] Start: 05-21-2022 End: 05-22-[address] MOUSTAPHA AVINA Facility:[facility] Start: 04-28-2022 End: 04-29-[address] MOUSTAPHA AVINA Facility:[facility] Start: 04-06-2022 Adult health examination Moustapha Avina Other [employer] Other Start: 04-04-2022 End: 04-12-2022 Evaluation and management of inpatient DR NAEL SULLIVAN Facility:[facility] Start: 12-30-2021 End: 12-31-[address] ALEXANDER URIBE Facility:[facility] Start: 11-09-2021 End: 11-10-[address] MOUSTAPHA AVINA Facility: Start: 09-24-2021 Chart Update Moustapha Beth Bal l Work Phone: [facility] 250 DO Work Phone: Start: 09-22-2021 Patient encounter procedure Moustapha Avina Work Phone: [facility] [place] Work Phone: Start: 08-17-2021 Office outpatient visit 25 minutes Moustapha Avina Work Phone: [facility] 250 DO Work Phone: Start: 01-17-2019 End: 01-17-2019 Patient encounter procedure Moustapha Avina Facility:[facility] Procedures Date Procedure Procedure Detail Performing Clinician Start: 03-16-2017 End: 01-01-2020 Screening for osteoporosis Moustapha Daniela Other Start: 02-25-2016 End: 01-01-2020 Screening for malignant neoplasm of colon Moustapha Daniela Other Appendectomy Moustapha Avina Work Phone: Appendectomy [...] Cassidy Lue Operative procedure on hip B enjamin E Ball Work Phone: NEGATED: Highlighted row has not occurred! Total colonoscopy Moustapha Avina Work Phone: Plan of Treatment Date Care Activity Detail Author Start: 10-14-2021 FUV, Provider: Vasquez Claire, Status: Pen, Time: 12:50 PM FUV, Provider: Vasquez Claire, Status: Pen, Time: 12:50 PM [facility] 250 DO Work Phone: Start: 09-22-2021 STRESS NUC, Provider : SHARYN HHVI NUCLEAR 01,[id number], Status: Pen, Time: 12:00 PM STRESS NUC, Provider: SHARYN HHVI NUCLEAR 01,[id number], Status: Pen, Time: 12:00 PM [facility] DO Work Phone: Immunizations Immunization Date Immunization Notes Care Provider Ezekiel yang 08-17-2023 influenza, high dose seasonal, preservative-free Moustapha Avina Other [employer] Other 07-17-2021 influenza virus vaccine, unspecified formulation KEIKOJACEY ROCK [facility] 07-17-2021 influenza, high dose seasonal, preservative-free [facility]oustapha Kirit [facility] Work Phone: Comment on above: Series: 06-24-2021 influenza virus vaccine, split virus (incl. purified surface antigen) Moustapha Avina Other [employer] Other 03-13-2021 tetanus and diphther ia toxoids, adsorbed, preservative free, for adult use (5 Lf of tetanus toxoid and 2 Lf of diphtheria toxoid) Moustapha Avina Other [employer] Other 02-17-2021 pneumococcal polysaccharide vaccine, 23 valent Moustapha Avina Other [employer] Other 06-04-2020 influenza virus vaccine, split virus (incl. purified surface antigen) Moustapha Avina Other [employer] Other 06-04-2020 influenza virus vaccine, unspecified formulation KEIKO ROCK [facility] 06-04-2020 influenza, high dose seasonal, preservative-free Moustapha Avina Work Phone: [facility] 250 DO Work Phone: 02-15-2020 pneumococcal conjuga te vaccine, 13 valent Moustapha Avina Work Phone: [facility] 03-16-2017 diphtheria, tetanus toxoids and acellular pertussis vaccine, unspecified formulation Moustapha Avina Other [employer] Other 01-17-2015 zoster vaccine, live Joseejacquelin олег Daniela Other [employer] Other Payers Date Payer Category Payer Self-pay 2011 Medicare [id number] 1959 Medicare [id number] 1959 Unknown [id number] 1934 Unknown [id number] 2.16.84 [id number] 1934 Unknown [id number] 2.16.84 [id number] 1934 Unknown [id number] 2.16.84 [id number] 1934 Unknown [id number] 2.16.84 [id number] 1934 Unknown [id number] 2.16.84 [id number] 1934 Unknown [id number] 2.16.84 [id number] 1934 Unknown [id number] 2.16.84 [id number] 1934 Unknown [id number] 2.16.8 [id number] 1934 Unknown [id number] 2.16.8 [id number] 1934 Unknown [id number] 2.16.8 [id number] 1934 Unknown [id number] 2.16.8 [id number] Unknown [id number] 2.16.84 [id number] Unknown Social History Date Type Detail Facility No illicit drug use No illicit drug use [facility] 250 DO Work Phone: Start: 09-22-2022 Tobacco smoking status Never s moked tobacco (finding) [facility] Sex Assigned At Female [facility] Functional Status Date Assessment Result Facility 11-24-2022 Functional Status N/A [facility] 09-22-2022 Functional Status N/A [facility] Clinical Notes 11-09-2021 to 08-23-2023 Note Date [...] adequate fluid balance and to avoid dehydration. [employer] Other 12-05-2023 History general Narrative - Reported* [...] History DIVERTICULITIS 2021 Hospitalization History see above [employer] Other 11-29-2023 Evaluation note* Encounter Date Diagnosis [...] Ensure daily Check CBC, BS, Hepatic enzymes [employer] Other 11-29-2023 History general Narrative - Reported* [...] History DIVERTICULITIS 2021 Hospitalization History see above [employer] Other 10-25-2023 History general Narrative - Reported* [...] History DIVERTICULITIS 2021 Hospitalization History see above [employer] Other 08-21-2023 Evaluation note* Encounter Date Diagnosis Assessment Notes Treatment Notes Treatment Clinical Notes Apr, Acute cystitis without hematuria (ICD-10 - N30.00) [employer] Other 04-04-2023 Evaluation note* Encounter Date Diagnosis [...] ENT to evaluate for FB in right EAC [employer] Other 03-08-2023 Hospital Discharge instructions Patient Education [...] symptoms are. Treatment may include: Using an rdjh-lar-bnrkiqe vaginal lubricant before sex. Using a long-acting [...] Follow these instructions at home: Medicines Take hrnz-rat-izlwhlv and prescription medicines only as told by your health care provider. Do not use herbal or alternative medicines unless your health care provider says that you can. Use rlzb-dgh-fjhwkkt creams, lubricants, or moisturizers for dryness only [...] 01/20/2016 Document Revised: 08/18/2018 Document Reviewed: 06/01/2018 [employer] Patient Education 2020 [employer] Follow Up Care 09/22/2022 09:57:43 With:LEX HARRY, KEIKO Beth, URL Address: When:1 year [facility] 03-07-2023 Evaluation note* Encounter Date Diagnosis Assessment Notes Treatment Notes Treatment Clinical Notes Nov, Constipation (ICD-10 - K59.00) PATIENT TO START ON A MIRALAX DAILY, TITRATION DOSAGE. RTO IN 3 MONTHS [employer] Other 02-23-2023 Evaluation note* Encounter Date Diagnosis Assessment Notes Treatment Notes Treatment Clinical Notes Oct, Insomnia due to other mental disorder (ICD-10 - F51.05) Oct, Mental disorder, not otherwise specified (ICD-10 - F99) [employer] Other 01-04-2023 Hospital Discharge instructions Patient Education 09/22/2022 09:23:59 Urinary Tract Infection, Adult, Duvw-tw-Jppo Urinary Tract Infection, Adult A urinary tract [...] Follow these instructions at home: Medicines Take igdr-igh-zwxcsci and prescription medicines only as told by [...] 02/21/2009 Document Revised: 08/23/2019 Document Reviewed: 03/15/2019 [employer] Patient Education 2019 [email or web address] Follow Up Care 08/24/2022 11:34:30 With:Charly TODD, GEETHA Hillman, URO Address: [address] [address] [phone] When:Within 2 Month(s) [facility] 09-02-2022 NotePROCEDURE: XR GI UPPER AIR KUB [...] Electronically authenticated by: GENO PIZARRO Date: 2022-05-21 10:1109-02-2022 NotePROCEDURE: XR GI UPPER AIR KUB DUAL [...] Electronically authenticated by: GENO PIZARRO Date: 2022-05-21 10:1102-21-2022 NotePROCEDURE: XR HIP LT 2 3V W [...] Electronically authenticated by: ALEXANDER DUMONT Date: 2021-11-09 17:46Evaluation + Plan note Future Appointments Appointment Date:11/24/2022 08:45:00 AM Scheduled Provider:Cassidy Parks MD Location:[facility] Appointment Type:URO Office Visit [facility] evaluation + Plan note Future Appointments Appointment Date:11/24/2022 08:45:00 AM Scheduled Provider:Cassidy Parks MD Location:[facility] Appointment Type:URO Office Visit Diagnostic Tests Pending * [facility]ments Appointment Date:11/22/2023 08:30:00 AM Scheduled Provider:KEIKO ROCK PA-C Location:[facility] Appointment Type:URO Office Visit [facility] evaluation noteNo [email or web address] [employer] Other History general Narrative - Reported* Type [...] History DIVERTICULITIS 2021 Hospitalization History see above [employer] Other History of Present illness NarrativePatient returns [...] [facility] Work Phone: Hospital course Narrative No data available for this section [facility] Hospital Discharge instructions No data available for this section [facility] No data available for this section [facility] reason for visit Narrativewants referral to home health care and therapyNort [employer] Other Summary Purpose Family History No Family [...] ear, initial encounter (T16.1XXA) Referral Organization [facility] Audra sebastian Referring Provider First Name Moustapha Referring Provider Last Name Daniela Referring Provider Specialty Internal Me dicine Referred Provider Tana Woodall Referred Provider Specialty Ear, Nose an d Throat Referral Priority Routine Additional Source Comments INFORMATION SOURCE (unrecogn ized section and content) DATE CREATED AUTHOR 02/01/2019 [facility] DATE CREATED AUTHOR AUTHOR'S ORGANIZ ATION 08/18/2021 [employer] DATE CREATED AUTHOR AUTHOR'S ORGANIZ ATION 09/24/2021 [place] [facility] DATE CREATED AUTHOR AUTHOR'S ORGANIZ ATION 10/20/2022 [facility] DATE CREATED AUTHOR AUTHOR'S ORGANIZ ATION 11/23/2023 Marie Cle[facility] Patient Care team informatio n (unrecognized section and content) Personnel Name: MOUSTAPHA AVINA DO Address: Address: [address] [facility] Scarlett [place], [address] Name: Brandin Artifacts Conservator, Christel Name: JuanhansaChasity Personnel Name: MOUSTAPHA AVINA DO Address: Address: [address] Name: Brandin Artifacts Conservator, Christel Name: MosestorreyChasity Personnel Name: MOUSTAPHA AVINA DO Address: Address: [address] [facility] [place]lett [place], [address] Name: Brandin Artifacts Conservator, Christel Name: Kwabena Chasity REASON FOR VISIT (unrecogniz ed section and [...] BE BASED ON THE PRIMARY CLINICAL RECORDS. [employer] provides no warranty or guarantee of the accuracy or completeness of information in this document.
[2024-01-10 19:52] LABS: Bilirubin Urine SMALL (NEGATIVE); Blood Urine TRACE-I (NEGATIVE); Clarity Urine CLEAR (CLEAR); Color Urine DK. ORANGE (YELLOW); Glucose Urine UA NEGATIVE (NEGATIVE); Ketones Urine TRACE mg/dL (NEGATIVE); Leukocyte Esterase Urine NEGATIVE (NEGATIVE); Nitrite Urine NEGATIVE (NEGATIVE); Protein Urine 30 mg/dL (NEG/TRACE); Specific Gravity Urine 1.025 (1.005-1.025); pH Urine 5.5 (5.0-9.0)
--- NOTE | 2024-01-10 19:58 | PC.NURSE ---
Patient to ED with unwitnessed fall, unknown down time. Patient denies LOC, but is not a good historian. It is unclear who called EMS. There is no apparent injury from this fall, but there is a healing bruise to the left face near the eye and the left knee. Patient c/o right hip pain to EMS, but is denying any pain at this time.
[2024-01-10 20:00] LABS: Calcium 8.7 mg/dL (8.5-10.1); Carbon Dioxide 22.3 mmol/L (21.0-32.0); Chloride 99 mmol/L (98-107); Estimated GFR (African America 33 (>=60); Estimated GFR (Non-African Ame 27 (>=60); Glucose 84 mg/dL (74-106); Potassium 4.3 mmol/L (3.5-5.1); Sodium 131 mmol/L (136-145)
[2024-01-10 20:11] LABS: Crystals Seen? None Seen #/HPF (None Seen); Mucus Urine TRACE (NONE SEEN); RBC Urine NONE SEEN #/HPF (0-2); Squamous Epithelial Cell Urine NONE SEEN #/LPF (NONE/RARE); WBC Urine NONE SEEN #/HPF (NONE SEEN)
[2024-01-10 20:12] LABS: Amorphous Sediment Urine MANY; Cast Seen? SEEN #/LPF (NONE SEEN); Fine Granular Casts Urine FEW; Hyaline Casts Urine FEW
[2024-01-10 20:13] LABS: Urine Culture Indicated NO
[2024-01-10 20:36] LABS: Hemoglobin 12.1 g/dL (12.0-16.0); Mean Corpuscular HGB Conc 32.7 g/dL (29.9-35.2); Mean Corpuscular Hemoglobin 29.9 pg (26.7-34.0); Mean Corpuscular Volume 91.4 fL (81.0-99.0); Mean Platelet Volume 8.9 fL (9.5-13.5); Platelet Count 219 10^3/uL (150-450); Red Blood Count 4.05 10^6/uL (4.20-5.40); Red Cell Distribution Width 14.2 % (11.0-15.0); White Blood Count 6.3 10^3/uL (4.0-11.0)
[2024-01-10 20:50] LABS: Bacteria Urine NONE SEEN #/HPF (NONE SEEN)
[2024-01-10] MEDS: 0.9 % SODIUM CHLORIDE 500 ML IV (20:59)
[2024-01-10 21:09] LABS: Atypical Lymphocytes Abs Man 1.82; Lymphocytes Absolute Manual 0.81 10^3/uL (1.20-3.80)
--- OUTSIDE RECORDS SUMMARY | 2024-01-10 22:08 | XMS_ITS | CCD ---
Author Organization [facility] Care Team Providers Care Whizzer Name Role Phone Moustapha Avina Primary Care [...] or physicia Propensity to adverse reactions Comment:Done Mimoona Other (1 source) No Known Medication Allergies; Translations: [No Known Medication Allergies] Propensity to adverse reactions (disorder) [facility] Repository Medications Current Medications Medication [...] for 1 month, then 2x/week there after, 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 These include [place] fries, hamburgers, cookies, candies, and soda. ? Drink enough fluid to keep your urine pale yellow. General instructions ? Exercise regularly or as told by your health care provider. Try to do 150 minutes of moderate exercise each week. ? Use the bathroom when you have the urge to go. Do not hold it in. ? Take phmy-sod-tlsitid and prescription medicines only as told by [...] keep your urine pale yellow. ? Take fqco-rxs-dkiavhs and prescription medicines only as told by your health care provider. This includes any fiber supplements. This information is not intended to replace advice given to you by your health care provider. Make sure you discuss any questions you have with your health care provider. Document Revised: 07/23/2020 Document Reviewed: 07/23/2020 [employer] Patient Education ? 2022 [employer]. [facility] Urology Office/Clinic Noteon 11-22-2023 Urology Office/Clinic Note [...] pt to restart. DEIDRE scheduled 11/18/23 @ [facility] pt. 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 Take cbny-lst-imltmby and prescription medicines only as told by [...] provider. Document Revised: 04/17/2021 Document Reviewed: 04/17/2021 [employer] Patient Education ? 2022 [employer]. Obstetrics and Gynecology Urinary Tract Infection, Adult [...] h (more content not included)... Normal [facility] Urology Office/Clinic Noteon 05-04-2023 Urology Office/Clinic Note Chief Complaint uti symptoms? [facility] Staff 87 year old female here for [...] pharm on file. 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 -Again discussed importance of [...] reviewing tests in (more content not included)... [facility] Comment on above: Result Comment: Elec tronically Signed By: Cassidy Parks MD\.br\Date and Time Signed: 05/04/23 18:22 EDT\.br\Electronically Co-Signed By: Xuan Mortensen\.br\Date and Time Co-Signed: 05/04/23 11:43 EDT Consultation Noteon 12-11-19 Consultation Note [id number]. 00CD:127 [facility] Ambulatory Visit Summaryon 0 11-24-2022 Ambulatory Visit Summary RADHA SHAYNA J :1935 Visit Date:11/24/2022 Ambulatory Visit Instructions Your Diagnosis Recurrent UTI Tests Performed Urnls Dip Stick Auto w/o Microscopy POC 58669 Your Care Team Attending Physician - KEIKO [...] KEIKO ROCK PA-C Where: [facility] Patient Educationon 11-25-19 Patient Education Obstetrics [...] are. Treatment may include: ? Using an nkjr-jua-xcoaozv vaginal lubricant before sex. ? Using a [...] these instructions at home: Medicines ? Take nbif-nia-jqrozuq and prescription medicines only as told by your health care provider. Do not use herbal or alternative medicines unless your health care provider says that you can. ? Use kwbz-cch-eiipfpx creams, lubricants, or moisturizers for dryness only [...] 01/20/2016 Document Revised: 08/18/2018 Document Reviewed: 06/01/2018 [employer] Patient Education ? 2020 [employer]. Normal [facility] Urology Office/Clinic Noteon 11-24-2022 Urology Office/Clinic Note [...] E&M of Est. Patient Moderate 30-39 Min 37994 E&M of Est. Patient Moderate 30-39 Min 80867 2. Recurrent UTI (N39.0: Urinary tract infection, site not specified) No UTIs since last visit. Has been using estrogen cream 2x per week as instructed. CT 10/15/22 showed no renal calculus. Ordered: E&M of Est. Patient Moderate 30-39 Min 90287 E&M of Est. Patient Moderate 30-39 Min 09205 Urnls Dip Stick Auto w/o Microscopy POC 80447 3. 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 States dysuria/urethral pain has completely resolved. Very pleased. Ordered: E&M of Est. Patient Moderate 30-39 Min 69906 E&M of Est. Patient Moderate 30-39 Min 23477 4. Contact dermatitis (L25.9: Unspecified contact dermatitis, [...] E&M of Est. Patient Moderate 30-39 Min 89653 E&M of Est. Patient Moderate 30-39 Min 32307 f/u 1 yr w DEIDRE prior. sooner [...] Glu (more content not included)... Normal [facility] Comment on above: Result Comment: [...] YESICA ZAYAS Date: 2022-10-15 09:34 Normal [facility] CREATININEon 06-08-2022 Creatinine [Mass/Vol] 1.22 mg/dL Critically high 0.55-1.02 [facility] Comment on above: Performed By: #### C BRITTANI ####[facility] [address] [place], [place] [address]Rw. Errol Flannery EGFR-AF ESTONIAN 51 mL/min/1.73m2 Critically low >=60 [facility] Comment on above: Performed By: #### C BRITTANI ####[facility] [address] [place], [place] [address]Cl. Errol Flannery EGFR-NON AF ESTONIAN 42 mL/min/1.73m2 Critically low >=60 [facility] Comment on above: Performed By: #### C BRITTANI ####[facility] [address] [place], [place] [address]Nx. Errol Flannery CTA CHEST WO W CONon [...] ALEXANDER DUMONT Date: 2022-06-08 10:18 Normal [facility] CARDIAC ZECHRAIAH 3-6on 2 CK [Catalytic activity/Vol] 35 U/L Normal 26-192 [facility] Comment on above: Performed By: #### L ACT #### [facility] [address] [address] [address] Errol Flannery CK.MB [Mass/Vol] 1.42 ng/mL Normal <=3.60 [facility] Comment on above: Performed By: #### L ACT #### [facility] [address] [address] [address] Errol Flannery HSTROP 6.4 pg/mL Normal 4.0-51.3 [facility] Comment on above: Result Comment: CUT- OFF POINTS HAVE BEEN ESTABLISHED BASED ON THE FOURTH UNIVERSAL DEFINITIONS OF MYOCARDIAL INFARCTION. THE UPPER REFERENCE LIMIT (URL) OF TROPONIN, DEFINED THE 99TH PERCENTILE OF cTnI DISTRIBUTION IN A REFERENCE POPULATION, HAS BEEN CONFIRMED THE DECISION THRESHOLD FOR OR DIAGNOSIS. Performed By: #### L ACT #### [facility] [address] [address] [address] Errol Flannery CARDIAC ZECHARIAH ADMITon 022 CK [Catalytic activity/Vol] 41 U/L Normal 26-192 [facility] Comment on above: Performed By: #### C ALICIA, BMP ####[facility] [address] [id number]. Errol Flannery CK.MB [Mass/Vol] 1.36 ng/mL Normal <=3.60 [facility] Comment on above: Performed By: #### C ALICIA, BMP ####[facility] [address] [place] [address]Dr. Errol Flannery HSTROP 5.8 pg/mL Normal 4.0-51.3 [facility] Comment on above: Result Comment: CUT- OFF POINTS HAVE BEEN ESTABLISHED BASED ON THE FOURTH UNIVERSAL DEFINITIONS OF MYOCARDIAL INFARCTION. THE UPPER REFERENCE LIMIT (URL) OF TROPONIN, DEFINED THE 99TH PERCENTILE OF cTnI DISTRIBUTION IN A REFERENCE POPULATION, HAS BEEN CONFIRMED THE DECISION THRESHOLD FOR OR DIAGNOSIS. Performed By: #### C BEV VARGAS ####[facility] [address] [address]Dr. Errol Flannery RICHELLE 65 ng/mL Normal 9-82 [facility] Comment on above: Performed By: #### C ALICIA, BEV ####[facility] [address] [id number]. Errol Flannery CBC AUTO DIFFon 04-29-2022 BASO # 0.0 103/ul Normal 0.0-0.1 [facility] Comment on above: Performed By: #### L ACT #### [facility] [address] [address] [address] Errol Flannery Basophils/100 WBC (Bld) 0.2 % Normal 0.2-2.0 [facility] Comment on above: Performed By: #### L ACT #### [facility] [address] [address] [address] Errol Flannery EO # 0.0 103/ul Normal 0.0-0.7 [facility] Comment on above: Performed By: #### L ACT #### [facility] [address] [address] [address] Errol Flannery Eosinophils/100 WBC (Bld) 0.1 % Critically low 0.9-7.0 [facility] Comment on above: Performed By: #### L ACT #### [facility] [address] [address] [address] Errol Flannery Erythrocyte distribution width (RBC) [Ratio] 13.9 % Normal 11.0-15.0 [facility] Comment on above: Performed By: #### L ACT #### [facility] [address] [address] [address] Errol Flannery Hematocrit (Bld) [Volume fraction] 40.9 % Normal 36.0-48.0 [facility] Comment on above: Performed By: #### L ACT #### [facility] [address] [address] [address] Errol Flannery Hemoglobin (Bld) [Mass/Vol] 13.3 g/dL Normal 12.0-16.0 [facility] Comment on above: Performed By: #### L ACT #### [facility] [address] [address] [address] Errol Flannery IG # 0.02 10e3/ul Normal 0.00-0.03 [facility] Comment on above: Performed By: #### L ACT #### [facility] [address] [address] [address] Errol Flannery IG % 0.2 % Normal 0.0-0.5 [facility] Comment on above: Performed By: #### L ACT #### [facility] [address] [place] [address] Dr. Errol Flannery LYMPH # 0.9 103/ul Critically low 1.2-3.8 [facility] Comment on above: Performed By: #### L ACT #### [facility] [address] [place] [address] Dr. Errol Flannery Lymphocytes/100 WBC (Bld) 9.2 % Critically low 20.5-60.0 [facility] Comment on above: Performed By: #### L ACT #### [facility] [address] [place] [address] Dr. Errol Flannery MANUAL DIFF REQ NO Normal [facility] Comment on above: Performed By: #### L ACT #### [facility] [address] [address] [address] Errol Flannery MCH (RBC) [Entitic mass] 30.6 pg Normal 26.7-34.0 [facility] Comment on above: Performed By: #### L ACT #### [facility] [address] [place] [address] Dr. Errol Flannery MCHC (RBC) [Mass/Vol] 32.5 g/dL Normal 29.9-35.2 [facility] Comment on above: Performed By: #### L ACT #### [facility] [address] [address] [address] Errol Flannery MCV (RBC) [Entitic vol] 94.0 fL Normal 81.0-99.0 [facility] Comment on above: Performed By: #### L ACT #### [facility] [address] [place] [address] Dr. Errol Flannery MONO # 0.6 103/ul Normal 0.3-0.8 [facility] Comment on above: Performed By: #### L ACT #### [facility] [address] [address] [address] Errol Flannery Monocytes/100 WBC (Bld) 6.8 % Normal 1.7-12.0 [facility] Comment on above: Performed By: #### L ACT #### [facility] [address] [place] [address] Dr. Errol Flannery NEUT # 7.9 103/ul Critically high 1.4-6.[address] [facility] Comment on above: Performed By: #### L ACT #### [facility] [address] [place] [address] Dr. Errol Flannery Neutrophils/100 WBC (Bld) 83.5 % Critically high 43.0-75.0 [facility] Comment on above: Performed By: #### L ACT #### [facility] [address] [place] [address] Dr. Errol Flannery Platelet mean volume (Bld) [Entitic vol] 9.5 fL Normal 9.5-13.5 [facility] Comment on above: Performed By: #### L ACT #### [facility] [address] [place] [address] Dr. Errol Flannery PLT 244 103/ul Normal 150-450 [facility] Comment on above: Performed By: #### L ACT #### [facility] [address] [place] [address] Dr. Errol Flannery RBC 4.35 106/ul Normal 4.20-5.40 [facility] Comment on above: Performed By: #### L ACT #### [facility] [address] [place] [address] Dr. Errol Flannery WBC 9.4 103/ul Normal 4.0-11.0 [facility] Comment on above: Performed By: #### L ACT #### [facility] [address] [place] [address] Dr. Errol Flannery ER URINE PROFILEon 2 Bilirubin Ql (U) Negative Normal NEGATIVE [facility] Comment on above: Performed By: #### L ACT #### [facility] [address] [place] [address] Dr. Errol Flannery Clarity (U) CLEAR Normal CLEAR [facility] Comment on above: Performed By: #### L ACT #### [facility] [address] [place] [address] Dr. Errol Flannery Color (U) LT. YELLOW Normal YELLOW [facility] Comment on above: Performed By: #### L ACT #### [facility] [address] [place] [address] Dr. Errol SHAFFERAHRaymond A micrscopic examination will be performed if indicated. Normal [facility] Comment on above: Performed By: #### L ACT #### [facility] [address] [place] [address] Dr. Errol Flannery Glucose Ql (U) Negative Normal NEGATIVE [facility] Comment on above: Performed By: #### L ACT #### [facility] [address] [place] [address] Dr. Errol Flannery Hemoglobin Ql (U) Negative Normal NEGATIVE [facility] Comment on above: Performed By: #### L ACT #### [facility] [address] [place] [address] Dr. Errol Flannery Ketones Ql (U) TRACE Abnormal NEGATIVE [facility] Comment on above: Performed By: #### L ACT #### [facility] [address] [place] [address] Dr. Errol Flannery LEUKOCYTES MODERATE Abnormal NEGATIVE [facility] Comment on above: Performed By: #### L ACT #### [facility] [address] [place] [address] Dr. Errol Flannery Nitrite Ql (U) Negative Normal NEGATIVE [facility] Comment on above: Performed By: #### L ACT #### [facility] [address] [address] [address] Errol Flannery pH (U) 6.5 [pH] Normal 5-9 [facility] Comment on above: Performed By: #### L ACT #### [facility] [address] [address] [address] Errol Flannery SPEC GRAVITY 1.010 Normal 1.005-<=1.[address] [facility] Comment on above: Performed By: #### L ACT #### [facility] [address] [address] [address] Errol Flannery UA PROTEIN Negative Normal NEGATIVE/ TRACE [facility] Comment on above: Performed By: #### L ACT #### [facility] [address] [place] [address] Dr. Errol Flannery UR MICRO IND INDICATED Normal [facility] Comment on above: Performed By: #### L ACT #### [facility] [address] [address] [address] Errol Flannery Urobilinogen Qn (U) 0.2 {Jordyn'U}/dL Normal 0.2 - 1. 0 [facility] Comment on above: Performed By: #### L ACT #### [facility] [address] [place] [address] Dr. Errol Flannery LACTATE/LACTIC ACIDon 2021 Lactate [Moles/Vol] 0.8 mmol/L Normal 0.4-1.9 [facility] Comment on above: Performed By: #### L ACT #### [facility] [address] [place] [address] Dr. Errol Flannery Lactate [Moles/Vol] 0.9 mmol/L Normal 0.4-1.9 [facility] Comment on above: Performed By: #### L ACT ####[facility] [address] [address]Dr. Errol Flannery PROF CHEM 8 (BAS METB)on Anion gap [Moles/Vol] 11.5 mmol/L Normal [facility] Comment on above: Performed By: #### C MADM, BMP ####[facility] [address] [address]Dr. Errol Flannery Calcium [Mass/Vol] 8.9 mg/dL Normal 8.5-10.1 [facility] Comment on above: Performed By: #### C MADM, BMP ####[facility] [address] [address]Dr. Errol Flannery Chloride [Moles/Vol] 104 mmol/L Normal 98-107 [facility] Comment on above: Performed By: #### C MADM, BMP ####[facility] [address] [address]Dr. Errol Flannery CO2 [Moles/Vol] 28.3 mmol/L Normal 21.0-32.0 [facility] Comment on above: Performed By: #### C MADM, BMP ####[facility] [address] [place], [place] [address]Dr. Errol Flannery Creatinine [Mass/Vol] 1.04 mg/dL Critically high 0.55-1.02 [facility] Comment on above: Performed By: #### C KRISTIM, BMP ####[facility] [address] [address]Dr. Errol Flannery EGFR-AF ESTONIAN >60 Normal >=60 [facility] Comment on above: Performed By: #### C MADM, BMP ####[facility] [address] [address]Dr. Errol Flannery EGFR-NON AF ESTONIAN 50 mL/min/1.73m2 Critically low >=60 [facility] Comment on above: Performed By: #### C MADM, BMP ####[facility] [address] [address]Dr. Errol Flannery Glucose [Mass/Vol] 131 mg/dL Critically high 74-106 [facility] Comment on above: Performed By: #### C MADM, BMP ####[facility] [address] [address]Dr. Errol Flannery Potassium [Moles/Vol] 3.8 mmol/L Normal 3.5-5.1 [facility] Comment on above: Performed By: #### C ALICIA, BMP ####[facility] [address] [address]DrElana Flannery Sodium [Moles/Vol] 140 mmol/L Normal 136-145 [facility] Comment on above: Performed By: #### C ALICIA, BMP ####[facility] [address] [address]Dr. Errol Flannery Urea nitrogen [Mass/Vol] 16.0 mg/dL Normal 7.0-18.0 [facility] Comment on above: Performed By: #### C ALICIA, BMP ####[facility] [address] [address]Dr. Errol Flannery Urea nitrogen/Creatinine [Mass ratio] 15.4 mg/mg Normal [facility] Comment on above: Performed By: #### C ALICIA, BMP ####[facility] [address] [address]DrElana Flannery URINE MICROSCOPIC ONLYon BACTERIA TRACE Abnormal NONE SEEN [facility] Comment on above: Performed By: #### L ACT #### [facility] [address] [place] [address] Dr. Errol Flannery Bacteria identified Cx Nom (U) NOT INDICATED Normal [facility] Comment on above: Performed By: #### L ACT #### [facility] [address] [place] [address] Dr. Errol Flannery CAST NONE SEEN Normal NONE SEEN [facility] Comment on above: Performed By: #### L ACT #### [facility] [address] [place] [address] Dr. Errol Flannery Crystals LM Nom (Urine sed) NONE SEEN Normal NONE SEEN [facility] Comment on above: Performed By: #### L ACT #### [facility] [address] [place] [address] Dr. Errol Flannery Epithelial cells LM Ql (Urine sed) FEW Abnormal NONE SEEN /RARE [facility] Comment on above: Performed By: #### L ACT #### [facility] [address] [address] [address] Errol Flannery MUCOUS NONE SEEN Normal NONE SEEN [facility] Comment on above: Performed By: #### L ACT #### [facility] [address] [address] [address] Errol Flannery RBC 0-2 Normal 0-2 [facility] Comment on above: Performed By: #### L ACT #### [facility] [address] [place] [address] Dr. Errol Flannery WBC 2-5 Abnormal NONE SEEN [facility] Comment on above: Performed By: #### L ACT #### [facility] [address] [place] [address] Dr. Errol Flannery XR CHEST 1 Von [...] GENO LAU Date: 2022-04-28 23:01 Normal [facility] CBC AUTO DIFFon 04-12-2022 BASO # 0.0 103/ul Normal 0.0-0.1 [facility] Comment on above: Performed By: #### C BC ####[facility] [address] [address]Dr. Errol Flannery Basophils/100 WBC (Bld) 0.5 % Normal 0.2-2.0 [facility] Comment on above: Performed By: #### C BC ####[facility] [address] [address]DrElana Flannery EO # 0.1 103/ul Normal 0.0-0.7 [facility] Comment on above: Performed By: #### C BC ####[facility] [address] [address]DrElana Flannery Eosinophils/100 WBC (Bld) 1.9 % Normal 0.9-7.0 [facility] Comment on above: Performed By: #### C BC ####[facility] [address] [place], [place] [address]Dr. Pammissy Flannery Erythrocyte distribution width (RBC) [Ratio] 14.1 % Normal 11.0-15.0 [facility] Comment on above: Performed By: #### C BC ####[facility] [address] [place], [place] [address]Dr. Errol Flannery Hematocrit (Bld) [Volume fraction] 35.1 % Critically low 36.0-48.0 [facility] Comment on above: Performed By: #### C BC ####[facility] [address] [place], [place] [address]Dr. Errol Flannery Hemoglobin (Bld) [Mass/Vol] 11.5 g/dL Critically low 12.0-16.0 [facility] Comment on above: Performed By: #### C BC ####[facility] Myotclhadx[address] [place], [place] [address]Dr. Errol Flannery IG # 0.02 10e3/ul Normal 0.00-0.03 [facility] Comment on above: Performed By: #### C BC ####[facility] Mloeziggad24[address] [place], [place] [address]Dr. Errol Flannery IG % 0.3 % Normal 0.0-0.5 [facility] Comment on above: Performed By: #### C BC ####[facility] Zmdzbtbvmv9[address] [place], [place] [address]Dr. Errol Flannery LYMPH # 1.4 103/ul Normal 1.2-3.8 [facility] Comment on above: Performed By: #### C BC ####[facility] Facvhqtxvt1786[address] [place], [place] [address]Dr. Errol Flannery Lymphocytes/100 WBC (Bld) 24.2 % Normal 20.5-60.0 [facility] Comment on above: Performed By: #### C BC ####[facility] Nclcalcijg7070[address] [place], [place] [address]Dr. Errol Flannery MANUAL DIFF REQ NO Normal [facility] Comment on above: Performed By: #### C BC ####[facility] [address] [place] [address]Dr. Errol Flannery MCH (RBC) [Entitic mass] 30.6 pg Normal 26.7-34.0 [facility] Comment on above: Performed By: #### C BC ####[facility] [address]rew[address]mdj[address] [place] [address]Dr. Errol Flannery MCHC (RBC) [Mass/Vol] 32.8 g/dL Normal 29.9-35.2 [facility] Comment on above: Performed By: #### C BC ####[facility] Ibmvfllknm9650[address] [place], [place] [address]DrElana Flannery MCV (RBC) [Entitic vol] 93.4 fL Normal 81.0-99.0 [facility] Comment on above: Performed By: #### C BC ####[facility] Pmigadjgqw[address] [place], [place] [address]DrElana Flannery MONO # 0.6 103/ul Normal 0.3-0.8 [facility] Comment on above: Performed By: #### C BC ####[facility] Dlfxaivsng8[address] [place], [place] [address]DrElana Flannery Monocytes/100 WBC (Bld) 10.0 % Normal 1.7-12.0 [facility] Comment on above: Performed By: #### C BC ####[facility] Hhkhkhhyom53[address] [place], [place] [address]DrElana Flannery NEUT # 3.7 103/ul Normal 1.4-6.5 [facility] Comment on above: Performed By: #### C BC ####[facility] Grkkluhgpu35[address] [place], [place] [address]DrElana Flannery Neutrophils/100 WBC (Bld) 63.1 % Normal 43.0-75.0 [facility] Comment on above: Performed By: #### C BC ####[facility] Giorpmkitp7025[address] [place], [place] [address]Dr. Errol Flannery Platelet mean volume (Bld) [Entitic vol] 9.8 fL Normal 9.5-13.5 [facility] Comment on above: Performed By: #### C BC ####[facility] [address]yidvj4[address] [place] [id number]. Errol Flannery PLT 237 103/ul Normal 150-450 [facility] Comment on above: Performed By: #### C BC ####[facility] Uflsnzzxlr9[address] [place] [id number]. Errol Flannery RBC 3.76 106/ul Critically low 4.20-5.40 [facility] Comment on above: Performed By: #### C BC ####[facility] Nywfxokvlc[address] [place] [id number]. Errol Flannery WBC 5.8 103/ul Normal 4.0-11.0 [facility] Comment on above: Performed By: #### C BC ####[facility] [address]wypgyct[address] [place] [id number]. Errol Flannery PROF 14(COMP METB)on 022 Albumin [Mass/Vol] 2.2 g/dL Critically low 3.4-5.0 [facility] Comment on above: Performed By: #### L ACT #### [facility] [address] [address] [address] Errol Flannery Albumin/Globulin [Mass ratio] 0.7 {ratio} Normal [facility] Comment on above: Performed By: #### L ACT #### [facility] [address] [address] [address] Errol Flannery ALP [Catalytic activity/Vol] 65 U/L Normal 46-116 [facility] Comment on above: Performed By: #### L ACT #### [facility] [address] [address] [address] Errol Flannery ALT [Catalytic activity/Vol] 32 U/L Normal 14-59 [facility] Comment on above: Performed By: #### L ACT #### [facility] [address] [address] [address] Errol Flannery Anion gap [Moles/Vol] 8.6 mmol/L Normal [facility] Comment on above: Performed By: #### L ACT #### [facility] [address] [address] [address] Errol Flannery AST [Catalytic activity/Vol] 21 U/L Normal 15-37 [facility] Comment on above: Performed By: #### L ACT #### [facility] [address] [address] [address] Errol Flannery Bilirubin [Mass/Vol] 0.2 mg/dL Normal 0.2-1.0 [facility] Comment on above: Performed By: #### L ACT #### [facility] [address] [address] [address] Errol Flannery Calcium [Mass/Vol] 8.5 mg/dL Normal 8.5-10.1 [facility] Comment on above: Performed By: #### L ACT #### [facility] [address] [address] [address] Errol Flannery Chloride [Moles/Vol] 109 mmol/L Critically high 98-107 [facility] Comment on above: Performed By: #### L ACT #### [facility] [address] [address] [address] Errol Flannery CO2 [Moles/Vol] 29.0 mmol/L Normal 21.0-32.0 [facility] Comment on above: Performed By: #### L ACT #### [facility] [address] [address] [address] Errol Flannery Creatinine [Mass/Vol] 1.01 mg/dL Normal 0.55-1.02 [facility] Comment on above: Performed By: #### L ACT #### [facility] [address] [address] [address] Errol Flannery EGFR-AF ESTONIAN >60 Normal >=60 [facility] Comment on above: Performed By: #### L ACT #### [facility] [address] [address] [address] Errol Flannery EGFR-NON AF ESTONIAN 52 mL/min/1.73m2 Critically low >=60 [facility] Comment on above: Performed By: #### L ACT #### [facility] [address] [address] [address] Errol Flannery Globulin (S) [Mass/Vol] 3.1 g/dL Normal [facility] Comment on above: Performed By: #### L ACT #### [facility] [address] [address] [address] Errol Flannery Glucose [Mass/Vol] 98 mg/dL Normal 74-106 [facility] Comment on above: Performed By: #### L ACT #### [facility] [address] [address] [address] Errol Flannery Potassium [Moles/Vol] 4.6 mmol/L Normal 3.5-5.1 [facility] Comment on above: Performed By: #### L ACT #### [facility] [address] [place] [address] Dr. Errol Flannery Protein [Mass/Vol] 5.3 g/dL Critically low 6.4-8.2 [facility] Comment on above: Performed By: #### L ACT #### [facility] [address] [place] [address] Dr. Errol Flannery Sodium [Moles/Vol] 142 mmol/L Normal 136-145 [facility] Comment on above: Performed By: #### L ACT #### [facility] [address] [place] [address] Dr. Errol Flannery Urea nitrogen [Mass/Vol] 16.0 mg/dL Normal 7.0-18.0 [facility] Comment on above: Performed By: #### L ACT #### [facility] [address] [place] [address] Dr. Errol Flannery Urea nitrogen/Creatinine [Mass ratio] 15.8 mg/mg Normal [facility] Comment on above: Performed By: #### L ACT #### [facility] [address] [place] [address] Dr. Errol Flannery CBC AUTO DIFFon 04-11-2022 BASO # 0.0 103/ul Normal 0.0-0.1 [facility] Comment on above: Performed By: #### C BC ####[facility] [address] [place] [id number]. Errol Flannery Basophils/100 WBC (Bld) 0.6 % Normal 0.2-2.0 [facility] Comment on above: Performed By: #### C BC ####[facility] Ugruwjxagw[address] [place], [place] [address]Dr. Errol Flannery EO # 0.1 103/ul Normal 0.0-0.7 [facility] Comment on above: Performed By: #### C BC ####[facility] Emidyuixpq3730[address] [place], [place] [address]Dr. Errol Flannery Eosinophils/100 WBC (Bld) 1.8 % Normal 0.9-7.0 [facility] Comment on above: Performed By: #### C BC ####[facility] Plybgywcez5[address] [place], [place] [address]Dr. Errol Flannery Erythrocyte distribution width (RBC) [Ratio] 14.0 % Normal 11.0-15.0 [facility] Comment on above: Performed By: #### C BC ####[facility] Gthkrcncsf[address] [place], [place] [address]Dr. Errol Flannery Hematocrit (Bld) [Volume fraction] 34.5 % Critically low 36.0-48.0 [facility] Comment on above: Performed By: #### C BC ####[facility] Rpvqmkplyu4546[address] [place], [place] [address]Dr. Errol Flannery Hemoglobin (Bld) [Mass/Vol] 11.1 g/dL Critically low 12.0-16.0 [facility] Comment on above: Performed By: #### C BC ####[facility] Styreoreqz7[address] [place], [place] [address]Dr. Errol Flannery IG # 0.02 10e3/ul Normal 0.00-0.03 [facility] Comment on above: Performed By: #### C BC ####[facility] Ebujmxopoq87[address] [place], [place] [address]Dr. Errol Flannery IG % 0.3 % Normal 0.0-0.5 [facility] Comment on above: Performed By: #### C BC ####[facility] [address] [place] [id number]. Errol Flannery LYMPH # 1.6 103/ul Normal 1.2-3.8 [facility] Comment on above: Performed By: #### C BC ####[facility] Ipxzdkyzlo7[address] [place] [id number]. Errol Flannery Lymphocytes/100 WBC (Bld) 21.9 % Normal 20.5-60.0 [facility] Comment on above: Performed By: #### C BC ####[facility] Pearnkjdce[address] [place] [id number]. Errol Flannery MANUAL DIFF REQ NO Normal [facility] Comment on above: Performed By: #### C BC ####[facility] Nornbqizpf16[address] [place] [id number]. Errol Flannery MCH (RBC) [Entitic mass] 30.1 pg Normal 26.7-34.0 [facility] Comment on above: Performed By: #### C BC ####[facility] Biznzwcosb5[address] [place] [id number]. Errol Flannery MCHC (RBC) [Mass/Vol] 32.2 g/dL Normal 29.9-35.2 [facility] Comment on above: Performed By: #### C BC ####[facility] Skshlatmsz[address] [place] [id number]. Errol Flannery MCV (RBC) [Entitic vol] 93.5 fL Normal 81.0-99.0 [facility] Comment on above: Performed By: #### C BC ####[facility] Jpxylfrsuk5[address] [place] [address]Dr. Errol Flannery MONO # 0.7 103/ul Normal 0.3-0.8 [facility] Comment on above: Performed By: #### C BC ####[facility] Nmzvcufekw88[address] [place] [address]Dr. Errol Flannery Monocytes/100 WBC (Bld) 9.4 % Normal 1.7-12.0 [facility] Comment on above: Performed By: #### C BC ####[facility] Be[address]hglzfq18[address] [place] [address]Dr. Errol Flannery NEUT # 4.8 103/ul Normal 1.4-6.5 [facility] Comment on above: Performed By: #### C BC ####[facility] Cjzpqpfpye67[address] [place] [id number]. Errol Flannery Neutrophils/100 WBC (Bld) 66.0 % Normal 43.0-75.0 [facility] Comment on above: Performed By: #### C BC ####[facility] Htuxydegty75[address] [place] [id number]. Errol Flannery Platelet mean volume (Bld) [Entitic vol] 9.2 fL Critically low 9.5-13.5 [facility] Comment on above: Performed By: #### C BC ####[facility] Myvamnpjfq[address] [place], [place] [address]Dr. Errol Flannery PLT 240 103/ul Normal 150-450 [facility] Comment on above: Performed By: #### C BC ####[facility] Uydeixqz[address] [place], [place] [address]Dr. Errol Flannery RBC 3.69 106/ul Critically low 4.20-5.[address] [facility] Comment on above: Performed By: #### C BC ####[facility] Osvieaxdsv[address] [place] [address]Dr. Errol Flannery WBC 7.3 103/ul Normal 4.0-11.0 [facility] Comment on above: Performed By: #### C BC ####[facility] Xsznnxpntc35[address] [place] [id number]. Errol Flannery GI PANEL (PCR)on 04-11-2022 Adenovirus F 40/41 Not detected Normal NOT DETECTED [facility] Comment on above: Performed By: #### G IPANEL ####[facility] [address]je[address] [place] [address]Dr. Errol Flannery Astrovirus Not detected Normal NOT DETECTED [facility] Comment on above: Performed By: #### G IPANEL ####[facility] Edtinskpzq[address] [place] [address]Dr. Errol lFannery C. Diff toxin A/B Detected Critically abnormal NOT DETECTED [facility] Comment on above: Performed By: #### G IPANEL ####[facility] Allztwmuql[address] [place] [address]Dr. Errol Flannery Campylobacter Not detected Normal NOT DETECTED [facility] Comment on above: Performed By: #### G IPANEL ####[facility] T[address]mfn[address] [place] [address]Dr. Errol Flannery Cryptosporidium Not detected Normal NOT DETECTED [facility] Comment on above: Performed By: #### G IPANEL ####[facility] Zgjinbqrgg[address] [place], [place] [address]Dr. Errol Flannery Cyclos. Cayetanensis Not detected Normal NOT DETECTED [facility] Comment on above: Performed By: #### G IPANEL ####[facility] Ufkxqfxvob377[address] [place], [place] [address]Dr. Errol Flannery E. Coli O157 Not Applicable Normal Not Applicable [facility] Comment on above: Performed By: #### G IPANEL ####[facility] Ymjxizmkai029[address] [place], [place] [address]Dr. Errol Flannery E. histolytica Not detected Normal NOT DETECTED [facility] Comment on above: Performed By: #### G IPANEL ####[facility] Hgjftaoeqp08[address] [place], [place] [address]Dr. Errol Flannery EAEC Not detected Normal NOT DETECTED [facility] Comment on above: Performed By: #### G IPANEL ####[facility] Juwwvybzya0046[address] [place], [place] [address]Dr. Errol Flannery EIEC Not detected Normal NOT DETECTED [facility] Comment on above: Performed By: #### G IPANEL ####[facility] Ntetoctksu232[address] [place], [place] [address]Dr. Errol Flannery EPEC Not detected Normal NOT DETECTED [facility] Comment on above: Performed By: #### G IPANEL ####[facility] Qheortlvax[address] [place], [place] [address]Dr. Errol Flannery ETEC Not detected Normal NOT DETECTED [facility] Comment on above: Performed By: #### G IPANEL ####[facility] Kgthudkkid2[address] [place] [id number]. Errol Flannery G. Lamblia Not detected Normal NOT DETECTED [facility] Comment on above: Performed By: #### G IPANEL ####[facility] Iuqrcdyman9[address] [place] [id number]. Errol HUNTANEL CONTROLS PASSED Normal [facility] Comment on above: Performed By: #### G IPANEL ####[facility] [address]vlbdims[address] [place] [address]Dr. Errol JAY JUNAID HEADER GI PANEL BACTERIA Normal [facility] Comment on above: Performed By: #### G IPANEL ####[facility] Fiyesileyn[address] [place], [place] [address]Dr. Errol JAYHD ECOLI GI PANEL DIARRHEAGENIC E.COLI / SHIGELLA Normal [facility] Comment on above: Performed By: #### G IPANEL ####[facility] Qisijscjlj114[address] [place], [place] [address]Dr. Errol BAEZ INFO SEE BELOW Normal [facility] Comment on above: Result Comment: EAEC - Enteroaggregative E. Coli EPEC- Enteropathogenic E. Coli ETEC- Enterotoxigenic E. Coli lt/st STEC- Shigella-like toxin-producing E. Coli stx1/stx2 EIEC- Shigella/Enteroinvasive E. Coli Performed By: #### G IPANEL ####[facility] Nelpmfdzce[address] [place] [id number]. Errol HUNTNLHD PARASITES GI PANEL PARASITES Normal [facility] Comment on above: Performed By: #### G IPANEL ####[facility] Cqorrfpfed[address] [place] [address]Dr. Errol JAYHD VIRUS GI PANEL VIRUSES Normal [facility] Comment on above: Performed By: #### G IPANEL ####[facility] Gwmjvxgjqt4[address] [place], [place] [address]Dr. Errol Flannery Norovirus GI/GII Not detected Normal NOT DETECTED [facility] Comment on above: Performed By: #### G IPANEL ####[facility] Uzsfvpgtcu9422[address] [place], [place] [address]Dr. Errol Flannery P. Shigelloides Not detected Normal NOT DETECTED [facility] Comment on above: Performed By: #### G IPANEL ####[facility] Tuexqcwqlb7847[address] [place], [place] [address]Dr. Errol Flannery Rotavirus A Not detected Normal NOT DETECTED [facility] Comment on above: Performed By: #### G IPANEL ####[facility] Aswanzbzuq0766[address] [place], [place] [address]Dr. Errol Flannery Salmonella Not detected Normal NOT DETECTED [facility] Comment on above: Performed By: #### G IPANEL ####[facility] Jgtfmikgpc38[address] [place], [place] [address]Dr. Errol Flannery Sapovirus Not detected Normal NOT DETECTED [facility] Comment on above: Performed By: #### G IPANEL ####[facility] Mnrtdnukex74[address] [place], [place] [address]Dr. Errol Flannery STEC Not detected Normal NOT DETECTED [facility] Comment on above: Performed By: #### G IPANEL ####[facility] Xkwywfhmut7[address] [place], [place] [address]Dr. Errol Flannery Vibrio Not detected Normal NOT DETECTED [facility] Comment on above: Performed By: #### G IPANEL ####[facility] Ysqzytiykw[address] [place], [place] [address]Dr. Errol Flannery Vibrio Cholera Not detected Normal NOT DETECTED [facility] Comment on above: Performed By: #### G IPANEL ####[facility] Ldydwcabyp[address] [place], [place] [address]Dr. Errol Flannery Y. Enterocolitica Not detected Normal NOT DETECTED [facility] Comment on above: Performed By: #### G IPANEL ####[facility] Lyodzeutff[address] [place], [place] [address]Dr. Errol Flannery OCC BLD IMMUNOASSAYon 2021 OCCULT BLOOD Positive Abnormal NEGATIVE [facility] Comment on above: Performed By: #### O EDISON ####[facility] [address] [place] [address]Dr. Errol Flannery PROF 14(COMP METB)on 022 Albumin [Mass/Vol] 2.1 g/dL Critically low 3.4-5.0 e [facility] Comment on above: Performed By: #### C BC #### [facility] [address] [address] [address] Errol Flannery Albumin/Globulin [Mass ratio] 0.7 {ratio} Normal [facility] Comment on above: Performed By: #### C BC #### [facility] [address] [place] [address] Dr. Errol Flannery ALP [Catalytic activity/Vol] 60 U/L Normal 46-116 [facility] Comment on above: Performed By: #### C BC #### [facility] [address] [address] [address] Errol Flannery ALT [Catalytic activity/Vol] 30 U/L Normal 14-59 [facility] Comment on above: Performed By: #### C BC #### [facility] [address] [place] [address] Dr. Errol Flannery Anion gap [Moles/Vol] 8.9 mmol/L Normal [facility] Comment on above: Performed By: #### C BC #### [facility] [address] [place] [address] Dr. Errol Flannery AST [Catalytic activity/Vol] 20 U/L Normal 15-37 [facility] Comment on above: Performed By: #### C BC #### [facility] [address] [place], [place] [address] Dr. Errol Flannery Bilirubin [Mass/Vol] 0.3 mg/dL Normal 0.2-1.0 [facility] Comment on above: Performed By: #### C BC #### [facility] [address] [place] [address] Dr. Errol Flannery Calcium [Mass/Vol] 8.2 mg/dL Critically low 8.5-10.1 e [facility] Comment on above: Performed By: #### C BC #### [facility] [address] [address] [address] Errol Flannery Chloride [Moles/Vol] 109 mmol/L Critically high 98-107 [facility] Comment on above: Performed By: #### C BC #### [facility] [address] [address] [address] Errol Flannery CO2 [Moles/Vol] 27.7 mmol/L Normal 21.0-32.0 [facility] Comment on above: Performed By: #### C BC #### [facility] [address] [address] [address] Errol Flannery Creatinine [Mass/Vol] 1.03 mg/dL Critically high 0.55-1.02 [facility] Comment on above: Performed By: #### C BC #### [facility] [address] [address] [address] Errol Flannery EGFR-AF ESTONIAN >60 Normal >=60 [facility] Comment on above: Performed By: #### C BC #### [facility] [address] [address] [address] Errol Flannery EGFR-NON AF ESTONIAN 51 mL/min/1.73m2 Critically low >=60 [facility] Comment on above: Performed By: #### C BC #### [facility] [address] [address] [address] Errol Flannery Globulin (S) [Mass/Vol] 3.0 g/dL Normal [facility] Comment on above: Performed By: #### C BC #### [facility] [address] [address] [address] Errol Flannery Glucose [Mass/Vol] 91 mg/dL Normal 74-106 [facility] Comment on above: Performed By: #### C BC #### [facility] [address] [address] [address] Errol Flannery Potassium [Moles/Vol] 3.6 mmol/L Normal 3.5-5.1 [facility] Comment on above: Performed By: #### C BC #### [facility] [address] [place] [address] Dr. Errol Flannery Protein [Mass/Vol] 5.1 g/dL Critically low 6.4-8.2 Th e [facility] Comment on above: Performed By: #### C BC #### [facility] [address] [place] [address] Dr. Errol Flannery Sodium [Moles/Vol] 142 mmol/L Normal 136-145 [facility] Comment on above: Performed By: #### C BC #### [facility] [address] [place] [address] Dr. Errol Flannery Urea nitrogen [Mass/Vol] 11.0 mg/dL Normal 7.0-18.0 [facility] Comment on above: Performed By: #### C BC #### [facility] [address] [place] [address] Dr. Errol Flannery Urea nitrogen/Creatinine [Mass ratio] 10.7 mg/mg Normal [facility] Comment on above: Performed By: #### C BC #### [facility] [address] [place] [address] Dr. Errol Flannery CBC AUTO DIFFon 04-10-2022 BASO # 0.0 103/ul Normal 0.0-0.1 [facility] Comment on above: Performed By: #### C BC #### [facility] [address] [place] [address] Dr. Errol Flannery Basophils/100 WBC (Bld) 0.4 % Normal 0.2-2.0 [facility] Comment on above: Performed By: #### C BC #### [facility] [address] [place] [address] Dr. Errol Flannery EO # 0.1 103/ul Normal 0.0-0.7 [facility] Comment on above: Performed By: #### C BC #### [facility] [address] [place] [address] Dr. Errol Flannery Eosinophils/100 WBC (Bld) 2.1 % Normal 0.9-7.0 [facility] Comment on above: Performed By: #### C BC #### [facility] [address] [place] [address] Dr. Errol Flannery Erythrocyte distribution width (RBC) [Ratio] 13.8 % Normal 11.0-15.0 [facility] Comment on above: Performed By: #### C BC #### [facility] [address] [place] [address] Dr. Errol Flannery Hematocrit (Bld) [Volume fraction] 35.9 % Critically low 36.0-48.0 [facility] Comment on above: Performed By: #### C BC #### [facility] [address] [place] [address] Dr. Errol Flannery Hemoglobin (Bld) [Mass/Vol] 11.6 g/dL Critically low 12.0-16.0 [facility] Comment on above: Performed By: #### C BC #### [facility] [address] [place] [address] Dr. Errol Flannery IG # 0.03 10e3/ul Normal 0.00-0.03 [facility] Comment on above: Performed By: #### C BC #### [facility] [address] [place] [address] Dr. Errol Flannery IG % 0.5 % Normal 0.0-0.5 [facility] Comment on above: Performed By: #### C BC #### [facility] [address] [place] [address] Dr. Errol Flannery LYMPH # 1.2 103/ul Normal 1.2-3.8 [facility] Comment on above: Performed By: #### C BC #### [facility] [address] [place] [address] Dr. Errol Flannery Lymphocytes/100 WBC (Bld) 21.7 % Normal 20.5-60.0 [facility] Comment on above: Performed By: #### C BC #### [facility] [address] [place] [address] Dr. Errol Flannery MANUAL DIFF REQ NO Normal [facility] Comment on above: Performed By: #### C BC #### [facility] [address] [address] [address] Errol Flannery MCH (RBC) [Entitic mass] 30.0 pg Normal 26.7-34.0 [facility] Comment on above: Performed By: #### C BC #### [facility] [address] [place] [address] Dr. Errol Flannery MCHC (RBC) [Mass/Vol] 32.3 g/dL Normal 29.9-35.2 [facility] Comment on above: Performed By: #### C BC #### [facility] [address] [place] [address] Dr. Errol Flannery MCV (RBC) [Entitic vol] 92.8 fL Normal 81.0-99.0 [facility] Comment on above: Performed By: #### C BC #### [facility] [address] [place] [address] Dr. Errol Flannery MONO # 0.6 103/ul Normal 0.3-0.8 [facility] Comment on above: Performed By: #### C BC #### [facility] [address] [place] [address] Dr. Errol Flannery Monocytes/100 WBC (Bld) 10.5 % Normal 1.7-12.0 [facility] Comment on above: Performed By: #### C BC #### [facility] [address] [place] [address] Dr. Errol Flannery NEUT # 3.6 103/ul Normal 1.4-6.5 [facility] Comment on above: Performed By: #### C BC #### [facility] [address] [place] [address] Dr. Errol Flannery Neutrophils/100 WBC (Bld) 64.8 % Normal 43.0-75.0 [facility] Comment on above: Performed By: #### C BC #### [facility] [address] [place] [address] Dr. Errol Flannery Platelet mean volume (Bld) [Entitic vol] 9.0 fL Critically low 9.5-13.5 [facility] Comment on above: Performed By: #### C BC #### [facility] [address] [place] [address] Dr. Errol Flannery PLT 250 103/ul Normal 150-450 [facility] Comment on above: Performed By: #### C BC #### [facility] [address] [place] [address] Dr. Errol Flannery RBC 3.87 106/ul Critically low 4.20-5.40 [facility] Comment on above: Performed By: #### C BC #### [facility] [address] [place] [address] Dr. Errol Flannery WBC 5.6 103/ul Normal 4.0-11.0 [facility] Comment on above: Performed By: #### C BC #### [facility] [address] [place] [address] Dr. Errol Flannery PROF 14(COMP METB)on 022 Albumin [Mass/Vol] 2.2 g/dL Critically low 3.4-5.0 [facility] Comment on above: Performed By: #### L ACT #### [facility] [address] [place] [address] Dr. Errol Flannery Albumin/Globulin [Mass ratio] 0.8 {ratio} Normal [facility] Comment on above: Performed By: #### L ACT #### [facility] [address] [place] [address] Dr. Errol Flannery ALP [Catalytic activity/Vol] 67 U/L Normal 46-116 [facility] Comment on above: Performed By: #### L ACT #### [facility] [address] [place] [address] Dr. Errol Flannery ALT [Catalytic activity/Vol] 27 U/L Normal 14-59 [facility] Comment on above: Performed By: #### L ACT #### [facility] [address] [place] [address] Dr. Errol Flannery Anion gap [Moles/Vol] 8.9 mmol/L Normal [facility] Comment on above: Performed By: #### L ACT #### [facility] [address] [place] [address] Dr. Errol Flannery AST [Catalytic activity/Vol] 18 U/L Normal 15-37 [facility] Comment on above: Performed By: #### L ACT #### [facility] [address] [address] [address] Errol Flannery Bilirubin [Mass/Vol] 0.3 mg/dL Normal 0.2-1.0 [facility] Comment on above: Performed By: #### L ACT #### [facility] [address] [address] [address] Errol Flannery Calcium [Mass/Vol] 8.3 mg/dL Critically low 8.5-10.1 [facility] Comment on above: Performed By: #### L ACT #### [facility] [address] [address] [address] Errol Flannery Chloride [Moles/Vol] 110 mmol/L Critically high 98-107 [facility] Comment on above: Performed By: #### L ACT #### [facility] [address] [address] [address] Errol Flannery CO2 [Moles/Vol] 26.6 mmol/L Normal 21.0-32.0 [facility] Comment on above: Performed By: #### L ACT #### [facility] [address] [place] [address] Dr. Errol Flannery Creatinine [Mass/Vol] 0.95 mg/dL Normal 0.55-1.02 [facility] Comment on above: Performed By: #### L ACT #### [facility] [address] [address] [address] Errol Flannery EGFR-AF ESTONIAN >60 Normal >=60 [facility] Comment on above: Performed By: #### L ACT #### [facility] [address] [address] [address] Errol Flannery EGFR-NON AF ESTONIAN 56 mL/min/1.73m2 Critically low >=60 [facility] Comment on above: Performed By: #### L ACT #### [facility] [address] [address] [address] Errol Flannery Globulin (S) [Mass/Vol] 2.9 g/dL Normal [facility] Comment on above: Performed By: #### L ACT #### [facility] [address] [address] [address] Errol Flannery Glucose [Mass/Vol] 93 mg/dL Normal 74-106 [facility] Comment on above: Performed By: #### L ACT #### [facility] [address] [address] [address] Errol Flannery Potassium [Moles/Vol] 3.5 mmol/L Normal 3.5-5.1 [facility] Comment on above: Performed By: #### L ACT #### [facility] [address] [place] [address] Dr. Errol Flannery Protein [Mass/Vol] 5.1 g/dL Critically low 6.4-8.2 [facility] Comment on above: Performed By: #### L ACT #### [facility] [address] [place] [address] Dr. Errol Flannery Sodium [Moles/Vol] 142 mmol/L Normal 136-145 [facility] Comment on above: Performed By: #### L ACT #### [facility] [address] [place] [address] Dr. Errol Flannery Urea nitrogen [Mass/Vol] 10.0 mg/dL Normal 7.0-18.0 [facility] Comment on above: Performed By: #### L ACT #### [facility] [address] [place] [address] Dr. Errol Flannery Urea nitrogen/Creatinine [Mass ratio] 10.5 mg/mg Normal [facility] Comment on above: Performed By: #### L ACT #### [facility] [address] [address] [address] Errol Flannery CBC AUTO DIFFon 04-09-2022 BASO # 0.0 103/ul Normal 0.0-0.1 [facility] Comment on above: Performed By: #### C BC #### [facility] [address] [place] [address] Dr. Errol Flannery Basophils/100 WBC (Bld) 0.3 % Normal 0.2-2.0 [facility] Comment on above: Performed By: #### C BC #### [facility] [address] [place] [address] Dr. Errol Flannery EO # 0.1 103/ul Normal 0.0-0.7 [facility] Comment on above: Performed By: #### C BC #### [facility] [address] [place] [address] Dr. Errol Flannery Eosinophils/100 WBC (Bld) 1.9 % Normal 0.9-7.0 [facility] Comment on above: Performed By: #### C BC #### [facility] [address] [place] [address] Dr. Errol Flannery Erythrocyte distribution width (RBC) [Ratio] 13.5 % Normal 11.0-15.0 [facility] Comment on above: Performed By: #### C BC #### [facility] [address] [place] [address] Dr. Errol Flannery Hematocrit (Bld) [Volume fraction] 34.8 % Critically low 36.0-48.0 [facility] Comment on above: Performed By: #### C BC #### [facility] [address] [place] [address] Dr. Errol Flannery Hemoglobin (Bld) [Mass/Vol] 11.3 g/dL Critically low 12.0-16.0 [facility] Comment on above: Performed By: #### C BC #### [facility] [address] [place] [address] Dr. Errol Flannery IG # 0.02 10e3/ul Normal 0.00-0.03 [facility] Comment on above: Performed By: #### C BC #### [facility] [address] [place] [address] Dr. Errol Flannery IG % 0.3 % Normal 0.0-0.5 [facility] Comment on above: Performed By: #### C BC #### [facility] [address] [place] [address] Dr. Errol Flannery LYMPH # 1.4 103/ul Normal 1.2-3.8 [facility] Comment on above: Performed By: #### C BC #### [facility] [address] [place] [address] Dr. Errol Flannery Lymphocytes/100 WBC (Bld) 23.8 % Normal 20.5-60.0 [facility] Comment on above: Performed By: #### C BC #### [facility] [address] [place] [address] Dr. Errol Flannery MANUAL DIFF REQ NO Normal [facility] Comment on above: Performed By: #### C BC #### [facility] [address] [place] [address] Dr. Errol Flannery MCH (RBC) [Entitic mass] 30.4 pg Normal 26.7-34.0 [facility] Comment on above: Performed By: #### C BC #### [facility] [address] [place] [address] Dr. Errol Flannery MCHC (RBC) [Mass/Vol] 32.5 g/dL Normal 29.9-35.2 [facility] Comment on above: Performed By: #### C BC #### [facility] [address] [place] [address] Dr. Errol Flannery MCV (RBC) [Entitic vol] 93.5 fL Normal 81.0-99.0 [facility] Comment on above: Performed By: #### C BC #### [facility] [address] [place] [address] Dr. Errol Flannery MONO # 0.6 103/ul Normal 0.3-0.8 [facility] Comment on above: Performed By: #### C BC #### [facility] [address] [place] [address] Dr. Errol Flanneyr Monocytes/100 WBC (Bld) 9.3 % Normal 1.7-12.0 [facility] Comment on above: Performed By: #### C BC #### [facility] [address] [place] [address] Dr. Errol Flannery NEUT # 3.8 103/ul Normal 1.4-6.5 [facility] Comment on above: Performed By: #### C BC #### [facility] [address] [address] [address] Errol Flannery Neutrophils/100 WBC (Bld) 64.4 % Normal 43.0-75.0 [facility] Comment on above: Performed By: #### C BC #### [facility] [address] [address] [address] Errol Flannery Platelet mean volume (Bld) [Entitic vol] 9.2 fL Critically low 9.5-13.5 [facility] Comment on above: Performed By: #### C BC #### [facility] [address] [address] [address] Errol Flannery PLT 233 103/ul Normal 150-450 [facility] Comment on above: Performed By: #### C BC #### [facility] [address] [place] [address] Dr. Errol Flannery RBC 3.72 106/ul Critically low 4.20-5.40 [facility] Comment on above: Performed By: #### C BC #### [facility] [address] [place] [address] Dr. Errol Flannery WBC 5.9 103/ul Normal 4.0-11.0 [facility] Comment on above: Performed By: #### C BC #### [facility] [address] [place] [address] Dr. Errol Flannery PROF 14(COMP METB)on 022 Albumin [Mass/Vol] 2.2 g/dL Critically low 3.4-5.0 [facility] Comment on above: Performed By: #### L ACT #### [facility] [address] [place] [address] Dr. Errol Flannery Albumin/Globulin [Mass ratio] 0.8 {ratio} Normal [facility] Comment on above: Performed By: #### L ACT #### [facility] [address] [address] [address] Errol Flannery ALP [Catalytic activity/Vol] 61 U/L Normal 46-116 [facility] Comment on above: Performed By: #### L ACT #### [facility] [address] [address] [address] Errol Flannery ALT [Catalytic activity/Vol] 28 U/L Normal 14-59 [facility] Comment on above: Performed By: #### L ACT #### [facility] [address] [address] [address] Errol Flannery Anion gap [Moles/Vol] 8.6 mmol/L Normal [facility] Comment on above: Performed By: #### L ACT #### [facility] [address] [address] [address] Errol Flannery AST [Catalytic activity/Vol] 14 U/L Critically low 15-37 [facility] Comment on above: Performed By: #### L ACT #### [facility] [address] [address] [address] Errol Flannery Bilirubin [Mass/Vol] 0.2 mg/dL Normal 0.2-1.0 [facility] Comment on above: Performed By: #### L ACT #### [facility] [address] [address] [address] Errol Flannery Calcium [Mass/Vol] 7.9 mg/dL Critically low 8.5-10.1 [facility] Comment on above: Performed By: #### L ACT #### [facility] [address] [address] [address] Errol Flannery Chloride [Moles/Vol] 109 mmol/L Critically high 98-107 [facility] Comment on above: Performed By: #### L ACT #### [facility] [address] [address] [address] Errol Flannery CO2 [Moles/Vol] 28.6 mmol/L Normal 21.0-32.0 [facility] Comment on above: Performed By: #### L ACT #### [facility] [address] [address] [address] Errol Flannery Creatinine [Mass/Vol] 1.05 mg/dL Critically high 0.55-1.02 [facility] Comment on above: Performed By: #### L ACT #### [facility] [address] [address] [address] Errol Flannery EGFR-AF ESTONIAN 60 mL/min/1.73m2 Normal >=60 [facility] Comment on above: Performed By: #### L ACT #### [facility] [address] [address] [address] Errol Flannery EGFR-NON AF ESTONIAN 50 mL/min/1.73m2 Critically low >=60 [facility] Comment on above: Performed By: #### L ACT #### [facility] [address] [address] [address] Errol Flannery Globulin (S) [Mass/Vol] 2.8 g/dL Normal [facility] Comment on above: Performed By: #### L ACT #### [facility] [address] [address] [address] Errol Flannery Glucose [Mass/Vol] 111 mg/dL Critically high 74-106 [facility] Comment on above: Performed By: #### L ACT #### [facility] [address] [address] [address] Errol Flannery Potassium [Moles/Vol] 3.2 mmol/L Critically low 3.5-5.1 [facility] Comment on above: Performed By: #### L ACT #### [facility] [address] [address] [address] Errol Flannery Protein [Mass/Vol] 5.0 g/dL Critically low 6.4-8.2 [facility] Comment on above: Performed By: #### L ACT #### [facility] [address] [address] [address] Errol Flannery Sodium [Moles/Vol] 143 mmol/L Normal 136-145 [facility] Comment on above: Performed By: #### L ACT #### [facility] [address] [address] [address] Errol Flannery Urea nitrogen [Mass/Vol] 9.0 mg/dL Normal 7.0-18.0 [facility] Comment on above: Performed By: #### L ACT #### [facility] [address] [address] [address] Errol Flannery Urea nitrogen/Creatinine [Mass ratio] 8.6 mg/mg Normal [facility] Comment on above: Performed By: #### L ACT #### [facility] [address] [id number] Errol Flannery CBC AUTO DIFFon 04-08-2022 BASO # 0.0 103/ul Normal 0.0-0.1 [facility] Comment on above: Performed By: #### C BC ####[facility] [address] [id number] Flannery Basophils/100 WBC (Bld) 0.5 % Normal 0.2-2.0 [facility] Comment on above: Performed By: #### C BC ####[facility] [address] [address]DrElana Flannery EO # 0.1 103/ul Normal 0.0-0.7 [facility] Comment on above: Performed By: #### C BC ####[facility] [address] [address]DrElana Flannery Eosinophils/100 WBC (Bld) 1.8 % Normal 0.9-7.0 [facility] Comment on above: Performed By: #### C BC ####[facility] [address] [id number] Flannery Erythrocyte distribution width (RBC) [Ratio] 13.4 % Normal 11.0-15.0 [facility] Comment on above: Performed By: #### C BC ####[facility] [address] [id number] Flannery Hematocrit (Bld) [Volume fraction] 34.3 % Critically low 36.0-48.0 [facility] Comment on above: Performed By: #### C BC ####[facility] [address] [id number] Flannery Hemoglobin (Bld) [Mass/Vol] 11.1 g/dL Critically low 12.0-16.0 [facility] Comment on above: Performed By: #### C BC ####[facility] [address] [id number]. Errol Flannery IG # 0.01 10e3/ul Normal 0.00-0.03 [facility] Comment on above: Performed By: #### C BC ####[facility] [address] [id number]. Errol Flannery IG % 0.2 % Normal 0.0-0.5 [facility] Comment on above: Performed By: #### C BC ####[facility] [address] [id number]. Errol Flannery LYMPH # 1.4 103/ul Normal 1.2-3.8 [facility] Comment on above: Performed By: #### C BC ####[facility] [address] [address]Dr. Errol Flannery Lymphocytes/100 WBC (Bld) 32.4 % Normal 20.5-60.0 [facility] Comment on above: Performed By: #### C BC ####[facility] [address] [address]Dr. Errol Flannery MANUAL DIFF REQ NO Normal [facility] Comment on above: Performed By: #### C BC ####[facility] [address] [address]Dr. Errol Flannery MCH (RBC) [Entitic mass] 30.4 pg Normal 26.7-34.0 [facility] Comment on above: Performed By: #### C BC ####[facility] [address] [address]Dr. Errol Flannery MCHC (RBC) [Mass/Vol] 32.4 g/dL Normal 29.9-35.2 [facility] Comment on above: Performed By: #### C BC ####[facility] [address] [address]Dr. Errol Flannery MCV (RBC) [Entitic vol] 94.0 fL Normal 81.0-99.0 [facility] Comment on above: Performed By: #### C BC ####[facility] [address] [id number]. Errol Flannery MONO # 0.5 103/ul Normal 0.3-0.8 [facility] Comment on above: Performed By: #### C BC ####[facility] [address] [id number]. Errol Flannery Monocytes/100 WBC (Bld) 10.4 % Normal 1.7-12.0 [facility] Comment on above: Performed By: #### C BC ####[facility] [address] [id number]. Errol Flannery NEUT # 2.4 103/ul Normal 1.4-6.5 [facility] Comment on above: Performed By: #### C BC ####[facility] [address] [id number]. Errol Flannery Neutrophils/100 WBC (Bld) 54.7 % Normal 43.0-75.0 [facility] Comment on above: Performed By: #### C BC ####[facility] [address] [id number]. Errol Flannery Platelet mean volume (Bld) [Entitic vol] 9.3 fL Critically low 9.5-13.5 [facility] Comment on above: Performed By: #### C BC ####[facility] [address] [id number]. Errol Flannery PLT 218 103/ul Normal 150-450 [facility] Comment on above: Performed By: #### C BC ####[facility] [address] [id number]. Errol Flannery RBC 3.65 106/ul Critically low 4.20-5.[address] [facility] Comment on above: Performed By: #### C BC ####[facility] [address] [id number]. Errol Flannery WBC 4.4 103/ul Normal 4.0-11.0 [facility] Comment on above: Performed By: #### C BC ####[facility] [address] [place], [place] [address]Dr. Errol Flannery PROF 14(COMP METB)on 022 Albumin [Mass/Vol] 2.2 g/dL Critically low 3.4-5.0 [facility] Comment on above: Performed By: #### C MP ####[facility] [address] [place], [place] [address]Dr. Errol Flannery Albumin/Globulin [Mass ratio] 0.8 {ratio} Normal [facility] Comment on above: Performed By: #### C MP ####[facility] [address] [place], [place] [address]Dr. Errol Flannery ALP [Catalytic activity/Vol] 64 U/L Normal 46-116 [facility] Comment on above: Performed By: #### C MP ####[facility] [address] [place], [place] [address]Dr. Errol Flannery ALT [Catalytic activity/Vol] 34 U/L Normal 14-59 [facility] Comment on above: Performed By: #### C MP ####[facility] [address] [place], [place] [address]Dr. Errol Flannery Anion gap [Moles/Vol] 8.1 mmol/L Normal [facility] Comment on above: Performed By: #### C MP ####[facility] [address] [place], [place] [address]Dr. Errol Flannery AST [Catalytic activity/Vol] 14 U/L Critically low 15-37 [facility] Comment on above: Performed By: #### C MP ####[facility] [address]neiz[address] [place], [place] [address]Dr. Errol Flannery Bilirubin [Mass/Vol] 0.3 mg/dL Normal 0.2-1.0 [facility] Comment on above: Performed By: #### C MP ####[facility] N[address] [place], [place] [address]Dr. Errol Flannery Calcium [Mass/Vol] 8.1 mg/dL Critically low 8.5-10.1 [facility] Comment on above: Performed By: #### C MP ####[facility] [address] [place] [id number]. Errol Flannery Chloride [Moles/Vol] 110 mmol/L Critically high 98-107 [facility] Comment on above: Performed By: #### C MP ####[facility] [address] [place] [address]Dr. Errol Flannery CO2 [Moles/Vol] 28.0 mmol/L Normal 21.0-32.0 [facility] Comment on above: Performed By: #### C MP ####[facility] [address] [place] [address]Dr. Errol Flannery Creatinine [Mass/Vol] 1.00 mg/dL Normal 0.55-1.02 [facility] Comment on above: Performed By: #### C MP ####[facility] [address] [place] [address]Dr. Errol Flannery EGFR-AF ESTONIAN >60 Normal >=60 [facility] Comment on above: Performed By: #### C MP ####[facility] [address] [place] [address]Dr. Errol Flannery EGFR-NON AF ESTONIAN 52 mL/min/1.73m2 Critically low >=60 [facility] Comment on above: Performed By: #### C MP ####[facility] [address] [place] [address]Dr. Errol Flannery Globulin (S) [Mass/Vol] 2.7 g/dL Normal [facility] Comment on above: Performed By: #### C MP ####[facility] [address] [place] [address]Dr. Errol Flannery Glucose [Mass/Vol] 88 mg/dL Normal 74-106 [facility] Comment on above: Performed By: #### C MP ####[facility] [address] [place] [address]Dr. Errol Flannery Potassium [Moles/Vol] 3.1 mmol/L Critically low 3.5-5.1 [facility] Comment on above: Performed By: #### C MP ####[facility] [address] [place] [address]Dr. Errol Flannery Protein [Mass/Vol] 4.9 g/dL Critically low 6.4-8.2 [facility] Comment on above: Performed By: #### C MP ####[facility] [address] [place] [address]Dr. Errol Flannery Sodium [Moles/Vol] 143 mmol/L Normal 136-145 [facility] Comment on above: Performed By: #### C MP ####[facility] [address] [place] [address]Dr. Errol Flannery Urea nitrogen [Mass/Vol] 5.0 mg/dL Critically low 7.0-18.0 [facility] Comment on above: Performed By: #### C MP ####[facility] [address] [place] [address]Dr. Errol Flannery Urea nitrogen/Creatinine [Mass ratio] 5.0 mg/mg Normal [facility] Comment on above: Performed By: #### C MP ####[facility] [address] [place] [address]Dr. Errol Flannery CBC AUTO DIFFon 04-07-2022 BASO # 0.0 103/ul Normal 0.0-0.1 [facility] Comment on above: Performed By: #### L ACT #### [facility] [address] [address] [address] Errol Flannery Basophils/100 WBC (Bld) 0.7 % Normal 0.2-2.0 [facility] Comment on above: Performed By: #### L ACT #### [facility] [address] [address] [address] Errol Flannery EO # 0.1 103/ul Normal 0.0-0.7 [facility] Comment on above: Performed By: #### L ACT #### [facility] [address] [address] [address] Errol Flannery Eosinophils/100 WBC (Bld) 2.0 % Normal 0.9-7.0 [facility] Comment on above: Performed By: #### L ACT #### [facility] [address] [place] [address] Dr. Errol Flannery Erythrocyte distribution width (RBC) [Ratio] 13.6 % Normal 11.0-15.0 [facility] Comment on above: Performed By: #### L ACT #### [facility] [address] [place] [address] Dr. Errol Flannery Hematocrit (Bld) [Volume fraction] 34.3 % Critically low 36.0-48.0 [facility] Comment on above: Performed By: #### L ACT #### [facility] [address] [place] [address] Dr. Errol Flannery Hemoglobin (Bld) [Mass/Vol] 11.1 g/dL Critically low 12.0-16.0 [facility] Comment on above: Performed By: #### L ACT #### [facility] [address] [place] [address] Dr. Errol Flannery IG # 0.02 10e3/ul Normal 0.00-0.03 [facility] Comment on above: Performed By: #### L ACT #### [facility] [address] [place] [address] Dr. Errol Flannery IG % 0.4 % Normal 0.0-0.5 [facility] Comment on above: Performed By: #### L ACT #### [facility] [address] [place] [address] Dr. Errol Flannery LYMPH # 1.4 103/ul Normal 1.2-3.8 [facility] Comment on above: Performed By: #### L ACT #### [facility] [address] [place] [address] Dr. Errol Flannery Lymphocytes/100 WBC (Bld) 30.4 % Normal 20.5-60.0 [facility] Comment on above: Performed By: #### L ACT #### [facility] [address] [place] [address] Dr. Errol Flannery MANUAL DIFF REQ NO Normal [facility] Comment on above: Performed By: #### L ACT #### [facility] [address] [place] [address] Dr. Errol Flannery MCH (RBC) [Entitic mass] 30.8 pg Normal 26.7-34.0 [facility] Comment on above: Performed By: #### L ACT #### [facility] [address] [place] [address] Dr. Errol Flannery MCHC (RBC) [Mass/Vol] 32.4 g/dL Normal 29.9-35.2 [facility] Comment on above: Performed By: #### L ACT #### [facility] [address] [address] [address] Errol Flannery MCV (RBC) [Entitic vol] 95.3 fL Normal 81.0-99.0 [facility] Comment on above: Performed By: #### L ACT #### [facility] [address] [place] [address] Dr. Errol Flannery MONO # 0.4 103/ul Normal 0.3-0.8 [facility] Comment on above: Performed By: #### L ACT #### [facility] [address] [place] [address] Dr. Errol Flannery Monocytes/100 WBC (Bld) 9.3 % Normal 1.7-12.0 [facility] Comment on above: Performed By: #### L ACT #### [facility] [address] [place] [address] Dr. Errol Flannery NEUT # 2.6 103/ul Normal 1.4-6.5 [facility] Comment on above: Performed By: #### L ACT #### [facility] [address] [place] [address] Dr. Errol Flannery Neutrophils/100 WBC (Bld) 57.2 % Normal 43.0-75.0 [facility] Comment on above: Performed By: #### L ACT #### [facility] [address] [place] [address] Dr. Errol Flannery Platelet mean volume (Bld) [Entitic vol] 9.7 fL Normal 9.5-13.5 [facility] Comment on above: Performed By: #### L ACT #### [facility] [address] [place] [address] Dr. Errol Flannery PLT 220 103/ul Normal 150-450 [facility] Comment on above: Performed By: #### L ACT #### [facility] [address] [address] [address] Errol Flannery RBC 3.60 106/ul Critically low 4.20-5.40 [facility] Comment on above: Performed By: #### L ACT #### [facility] [id number] Errol Flannery WBC 4.6 103/ul Normal 4.0-11.0 [facility] Comment on above: Performed By: #### L ACT #### [facility] [address] [address] ABD/PELV W CONon [...] ALEXANDER DUMONT Date: 2022-04-07 12:50 Normal [facility] PROF 14(COMP METB)on 04-07- 022 Albumin [Mass/Vol] 2.2 g/dL Critically low 3.4-5.0 Th e [facility] Comment on above: Performed By: #### C MP ####[facility] [address] [place] [address]Dr. Errol Flannery Albumin/Globulin [Mass ratio] 0.8 {ratio} Normal [facility] Comment on above: Performed By: #### C MP ####[facility] [address] [place] [address]Dr. Errol Flannery ALP [Catalytic activity/Vol] 70 U/L Normal 46-116 [facility] Comment on above: Performed By: #### C MP ####[facility] [address] [place] [address]Dr. Errol Flannery ALT [Catalytic activity/Vol] 40 U/L Normal 14-59 [facility] Comment on above: Performed By: #### C MP ####[facility] [address] [place] [address]Dr. Errol Flannery Anion gap [Moles/Vol] 10.0 mmol/L Normal [facility] Comment on above: Performed By: #### C MP ####[facility] [address] [place] [address]Dr. Errol Flannery AST [Catalytic activity/Vol] 16 U/L Normal 15-37 [facility] Comment on above: Performed By: #### C MP ####[facility] [address] [place] [id number]. Errol Flannery Bilirubin [Mass/Vol] 0.4 mg/dL Normal 0.2-1.0 [facility] Comment on above: Performed By: #### C MP ####[facility] [address] [place] [id number]. Errol Flannery Calcium [Mass/Vol] 8.4 mg/dL Critically low 8.5-10.1 [facility] Comment on above: Performed By: #### C MP ####[facility] [address] [place] [id number]. Errol Flannery Chloride [Moles/Vol] 111 mmol/L Critically high 98-107 [facility] Comment on above: Performed By: #### C MP ####[facility] [address] [place], [place] [id number]. Errol Flannery CO2 [Moles/Vol] 26.3 mmol/L Normal 21.0-32.0 [facility] Comment on above: Performed By: #### C MP ####[facility] [address] [place], [place] [id number]. Errol Flannery Creatinine [Mass/Vol] 1.05 mg/dL Critically high 0.55-1.02 [facility] Comment on above: Performed By: #### C MP ####[facility] [address] [place], [place] [id number]. Errol Flannery EGFR-AF ESTONIAN 60 mL/min/1.73m2 Normal >=60 [facility] Comment on above: Performed By: #### C MP ####[facility] [address] [place] [id number]. Errol Flannery EGFR-NON AF ESTONIAN 50 mL/min/1.73m2 Critically low >=60 [facility] Comment on above: Performed By: #### C MP ####[facility] [address] [place], [place] [id number]. Errol Flannery Globulin (S) [Mass/Vol] 2.8 g/dL Normal [facility] Comment on above: Performed By: #### C MP ####[facility] [address] [place] [id number]. Errol Flannery Glucose [Mass/Vol] 95 mg/dL Normal 74-106 [facility] Comment on above: Performed By: #### C MP ####[facility] [address]jtd[address] [place] [id number]. Errol Flannery Potassium [Moles/Vol] 3.3 mmol/L Critically low 3.5-5.1 [facility] Comment on above: Performed By: #### C MP ####[facility] [address] [place] [id number]. Errol Flannery Protein [Mass/Vol] 5.0 g/dL Critically low 6.4-8.2 Th [facility] Comment on above: Performed By: #### C MP ####[facility] [address] [place] [address]Dr. Errol Flannery Sodium [Moles/Vol] 144 mmol/L Normal 136-145 [facility] Comment on above: Performed By: #### C MP ####[facility] [address]fl[address] [place] [id number]. Errol Flannery Urea nitrogen [Mass/Vol] 10.0 mg/dL Normal 7.0-18.0 [facility] Comment on above: Performed By: #### C MP ####[facility] [address] [place] [address]Dr. Errol Flannery Urea nitrogen/Creatinine [Mass ratio] 9.5 mg/mg Normal [facility] Comment on above: Performed By: #### C MP ####[facility] [address]wcwc[address] [place] [id number]. Errol Flannery CBC AUTO DIFFon 04-06-2022 BASO # 0.0 103/ul Normal 0.0-0.1 [facility] Comment on above: Performed By: #### C BC #### [facility] [address] [id number] Errol Flannery Basophils/100 WBC (Bld) 0.3 % Normal 0.2-2.0 [facility] Comment on above: Performed By: #### C BC #### [facility] [address] [place] [address] Dr. Errol Flannery EO # 0.0 103/ul Normal 0.0-0.7 [facility] Comment on above: Performed By: #### C BC #### [facility] [address] [place] [address] Dr. Errol Flannery Eosinophils/100 WBC (Bld) 0.4 % Critically low 0.9-7.0 [facility] Comment on above: Performed By: #### C BC #### [facility] [address] [place] [address] Dr. Errol Flannery Erythrocyte distribution width (RBC) [Ratio] 13.6 % Normal 11.0-15.0 [facility] Comment on above: Performed By: #### C BC #### [facility] [address] [place] [address] Dr. Errol Flannery Hematocrit (Bld) [Volume fraction] 35.7 % Critically low 36.0-48.0 [facility] Comment on above: Performed By: #### C BC #### [facility] [address] [place] [address] Dr. Errol Flannery Hemoglobin (Bld) [Mass/Vol] 11.5 g/dL Critically low 12.0-16.0 [facility] Comment on above: Performed By: #### C BC #### [facility] [address] [place] [address] Dr. Errol Flannery IG # 0.03 10e3/ul Normal 0.00-0.03 [facility] Comment on above: Performed By: #### C BC #### [facility] [address] [place] [address] Dr. Errol Flannery IG % 0.4 % Normal 0.0-0.5 [facility] Comment on above: Performed By: #### C BC #### [facility] [address] [place] [address] Dr. Errol Flannery LYMPH # 1.3 103/ul Normal 1.2-3.8 [facility] Comment on above: Performed By: #### C BC #### [facility] [address] [address] [address] Errol Flannery Lymphocytes/100 WBC (Bld) 17.5 % Critically low 20.5-60.0 [facility] Comment on above: Performed By: #### C BC #### [facility] [address] [address] [address] Errol Flannery MANUAL DIFF REQ NO Normal [facility] Comment on above: Performed By: #### C BC #### [facility] [address] [place] [address] Dr. Errol Flannery MCH (RBC) [Entitic mass] 30.5 pg Normal 26.7-34.0 [facility] Comment on above: Performed By: #### C BC #### [facility] [address] [place] [address] Dr. Errol Flannery MCHC (RBC) [Mass/Vol] 32.2 g/dL Normal 29.9-35.2 [facility] Comment on above: Performed By: #### C BC #### [facility] [address] [place] [address] Dr. Errol Flannery MCV (RBC) [Entitic vol] 94.7 fL Normal 81.0-99.0 [facility] Comment on above: Performed By: #### C BC #### [facility] [address] [place] [address] Dr. Errol Flannery MONO # 0.6 103/ul Normal 0.3-0.8 [facility] Comment on above: Performed By: #### C BC #### [facility] [address] [place] [address] Dr. Errol Flannery Monocytes/100 WBC (Bld) 8.5 % Normal 1.7-12.0 [facility] Comment on above: Performed By: #### C BC #### [facility] [address] [place] [address] Dr. Errol Flannery NEUT # 5.2 103/ul Normal 1.4-6.5 [facility] Comment on above: Performed By: #### C BC #### [facility] [address] [address] [address] Errol Flannery Neutrophils/100 WBC (Bld) 72.9 % Normal 43.0-75.0 [facility] Comment on above: Performed By: #### C BC #### [facility] [address] [address] [address] Errol Flannery Platelet mean volume (Bld) [Entitic vol] 9.9 fL Normal 9.5-13.5 [facility] Comment on above: Performed By: #### C BC #### [facility] [address] [address] [address] Errol Flannery PLT 190 103/ul Normal 150-450 [facility] Comment on above: Performed By: #### C BC #### [facility] [address] [place] [address] Dr. Errol lFannery RBC 3.77 106/ul Critically low 4.20-5.40 [facility] Comment on above: Performed By: #### C BC #### [facility] [address] [place] [address] Dr. Errol Flannery WBC 7.2 103/ul Normal 4.0-11.0 [facility] Comment on above: Performed By: #### C BC #### [facility] [address] [place] [address] Dr. Errol Flannery PROF 14(COMP METB)on 022 Albumin [Mass/Vol] 2.1 g/dL Critically low 3.4-5.0 [facility] Comment on above: Performed By: #### C MP #### [facility] [address] [place] [address] Dr. Errol Flannery Albumin/Globulin [Mass ratio] 0.7 {ratio} Normal [facility] Comment on above: Performed By: #### C MP #### [facility] [address] [place] [address] Dr. Errol Flannery ALP [Catalytic activity/Vol] 74 U/L Normal 46-116 [facility] Comment on above: Performed By: #### C MP #### [facility] [address] [place], [place] [address] Dr. Errol Flannery ALT [Catalytic activity/Vol] 52 U/L Normal 14-59 [facility] Comment on above: Performed By: #### C MP #### [facility] [address] [place] [address] Dr. Errol Flannery Anion gap [Moles/Vol] 14.0 mmol/L Normal [facility] Comment on above: Performed By: #### C MP #### [facility] [address] [address] [address] Errol Flannery AST [Catalytic activity/Vol] 24 U/L Normal 15-37 [facility] Comment on above: Performed By: #### C MP #### [facility] [address] [place] [address] Dr. Errol Flannery Bilirubin [Mass/Vol] 0.5 mg/dL Normal 0.2-1.0 [facility] Comment on above: Performed By: #### C MP #### [facility] [address] [place] [address] Dr. Errol Flannery Calcium [Mass/Vol] 8.1 mg/dL Critically low 8.5-10.1 [facility] Comment on above: Performed By: #### C MP #### [facility] [address] [place] [address] Dr. Errol Flannery Chloride [Moles/Vol] 109 mmol/L Critically high 98-107 [facility] Comment on above: Performed By: #### C MP #### [facility] [address] [place] [address] Dr. Errol Flannery CO2 [Moles/Vol] 24.6 mmol/L Normal 21.0-32.0 [facility] Comment on above: Performed By: #### C MP #### [facility] [address] [place] [address] Dr. Errol Flannery Creatinine [Mass/Vol] 0.93 mg/dL Normal 0.55-1.02 [facility] Comment on above: Performed By: #### C MP #### [facility] [address] [place] [address] Dr. Errol Flannery EGFR-AF ESTONIAN >60 Normal >=60 [facility] Comment on above: Performed By: #### C MP #### [facility] [address] [address] [address] Errol Flannery EGFR-NON AF ESTONIAN 57 mL/min/1.73m2 Critically low >=60 [facility] Comment on above: Performed By: #### C MP #### [facility] [address] [address] [address] Errol Flannery Globulin (S) [Mass/Vol] 3.0 g/dL Normal [facility] Comment on above: Performed By: #### C MP #### [facility] [address] [address] [address] Errol Flannery Glucose [Mass/Vol] 93 mg/dL Normal 74-106 [facility] Comment on above: Performed By: #### C MP #### [facility] [address] [address] [address] Errol Flannery Potassium [Moles/Vol] 3.6 mmol/L Normal 3.5-5.1 [facility] Comment on above: Performed By: #### C MP #### [facility] [address] [address] [address] Errol Flannery Protein [Mass/Vol] 5.1 g/dL Critically low 6.4-8.2 [facility] Comment on above: Performed By: #### C MP #### [facility] [address] [address] [address] Errol Flannery Sodium [Moles/Vol] 141 mmol/L Normal 136-145 [facility] Comment on above: Performed By: #### C MP #### [facility] [address] [address] [address] Errol Flannery Urea nitrogen [Mass/Vol] 11.0 mg/dL Normal 7.0-18.0 [facility] Comment on above: Performed By: #### C MP #### [facility] [address] [address] [address] Errol Flannery Urea nitrogen/Creatinine [Mass ratio] 11.8 mg/mg Normal [facility] Comment on above: Performed By: #### C MP #### [facility] [address] [address] [address] Errol Flannery XR ABD FLAT UP_PA [...] ALEXANDER DUMONT Date: 2022-04-06 11:49 Normal [facility] CBC AUTO DIFFon 04-05-2022 BASO # 0.0 103/ul Normal 0.0-0.1 [facility] Comment on above: Performed By: #### L ACT #### [facility] [address] [address] [address] Errol Flannery Basophils/100 WBC (Bld) 0.2 % Normal 0.2-2.0 [facility] Comment on above: Performed By: #### L ACT #### [facility] [address] [address] [address] Errol Flannery EO # 0.0 103/ul Normal 0.0-0.7 [facility] Comment on above: Performed By: #### L ACT #### [facility] [address] [address] [address] Errol Flannery Eosinophils/100 WBC (Bld) 0.1 % Critically low 0.9-7.0 [facility] Comment on above: Performed By: #### L ACT #### [facility] [address] [address] [address] Errol Flannery Erythrocyte distribution width (RBC) [Ratio] 13.6 % Normal 11.0-15.0 [facility] Comment on above: Performed By: #### L ACT #### [facility] [address] [address] [address] Errol Flannery Hematocrit (Bld) [Volume fraction] 37.1 % Normal 36.0-48.0 [facility] Comment on above: Performed By: #### L ACT #### [facility] [address] [address] [address] Errol Flannery Hemoglobin (Bld) [Mass/Vol] 11.9 g/dL Critically low 12.0-16.0 [facility] Comment on above: Performed By: #### L ACT #### [facility] [address] [address] [address] Errol Flannery IG # 0.04 10e3/ul Critically high 0.00-0.03 [facility] Comment on above: Performed By: #### L ACT #### [facility] [address] [place] [address] Dr. Errol Flannery IG % 0.4 % Normal 0.0-0.5 [facility] Comment on above: Performed By: #### L ACT #### [facility] [address] [place] [address] Dr. Errol Flannery LYMPH # 1.2 103/ul Normal 1.2-3.8 [facility] Comment on above: Performed By: #### L ACT #### [facility] [address] [place] [address] Dr. Errol Flannery Lymphocytes/100 WBC (Bld) 11.1 % Critically low 20.5-60.0 [facility] Comment on above: Performed By: #### L ACT #### [facility] [address] [address] [address] Errol Flannery MANUAL DIFF REQ NO Normal [facility] Comment on above: Performed By: #### L ACT #### [facility] [address] [place] [address] Dr. Errol Flannery MCH (RBC) [Entitic mass] 30.4 pg Normal 26.7-34.0 [facility] Comment on above: Performed By: #### L ACT #### [facility] [address] [address] [address] Errol Flannery MCHC (RBC) [Mass/Vol] 32.1 g/dL Normal 29.9-35.2 [facility] Comment on above: Performed By: #### L ACT #### [facility] [address] [address] [address] Errol Flannery MCV (RBC) [Entitic vol] 94.9 fL Normal 81.0-99.0 [facility] Comment on above: Performed By: #### L ACT #### [facility] [address] [address] [address] Errol Flannery MONO # 0.8 103/ul Normal 0.3-0.8 [facility] Comment on above: Performed By: #### L ACT #### [facility] [address] [address] [address] Errol Flannery Monocytes/100 WBC (Bld) 7.7 % Normal 1.7-12.0 [facility] Comment on above: Performed By: #### L ACT #### [facility] [address] [address] [address] Errol Flannery NEUT # 8.4 103/ul Critically high 1.4-6.5 [facility] Comment on above: Performed By: #### L ACT #### [facility] [address] [address] [address] Errol Flannery Neutrophils/100 WBC (Bld) 80.5 % Critically high 43.0-75.0 [facility] Comment on above: Performed By: #### L ACT #### [facility] [address] [address] [address] Errol Flannery Platelet mean volume (Bld) [Entitic vol] 9.4 fL Critically low 9.5-13.5 [facility] Comment on above: Performed By: #### L ACT #### [facility] [address] [address] [address] Errol Flannery PLT 197 103/ul Normal 150-450 [facility] Comment on above: Performed By: #### L ACT #### [facility] [address] [address] [address] Errol Flannery RBC 3.91 106/ul Critically low 4.20-5.40 [facility] Comment on above: Performed By: #### L ACT #### [facility] [address] [address] [address] Errol Flannery WBC 10.5 103/ul Normal 4.0-11.0 [facility] Comment on above: Performed By: #### L ACT #### [facility] [address] [address] [address] Errol Flannery PROF 14(COMP METB)on 022 Albumin [Mass/Vol] 2.4 g/dL Critically low 3.4-5.0 [facility] Comment on above: Performed By: #### C MP ####[facility] [address] [address]Dr. Errol Flannery Albumin/Globulin [Mass ratio] 0.8 {ratio} Normal [facility] Comment on above: Performed By: #### C MP ####[facility] [address] [address]Dr. Errol Flannery ALP [Catalytic activity/Vol] 94 U/L Normal 46-116 [facility] Comment on above: Performed By: #### C MP ####[facility] [address] [address]Dr. Errol Flannery ALT [Catalytic activity/Vol] 87 U/L Critically high 14-59 [facility] Comment on above: Performed By: #### C MP ####[facility] [address] [address]Dr. Errol Flannery Anion gap [Moles/Vol] 8.3 mmol/L Normal [facility] Comment on above: Performed By: #### C MP ####[facility] [address] [address]Dr. Errol Flannery AST [Catalytic activity/Vol] 47 U/L Critically high 15-37 [facility] Comment on above: Performed By: #### C MP ####[facility] [address] [address]Dr. Errol Flannery Bilirubin [Mass/Vol] 0.6 mg/dL Normal 0.2-1.0 [facility] Comment on above: Performed By: #### C MP ####[facility] [address] [place], [place] [address]Dr. Errol Flannery Calcium [Mass/Vol] 8.3 mg/dL Critically low 8.5-10.1 [facility] Comment on above: Performed By: #### C MP ####[facility] [address] [place], [place] [address]Dr. Errol Prudencio Chloride [Moles/Vol] 106 mmol/L Normal 98-107 [facility] Comment on above: Performed By: #### C MP ####[facility] [address] [place], [place] [address]Dr. Errol Prudencio CO2 [Moles/Vol] 29.3 mmol/L Normal 21.0-32.0 [facility] Comment on above: Performed By: #### C MP ####[facility] [address] [place], [place] [address]Dr. Errol Prudencio Creatinine [Mass/Vol] 0.97 mg/dL Normal 0.55-1.02 [facility] Comment on above: Performed By: #### C MP ####[facility] [address] [place], [place] [address]Dr. Pammissy Prudencio EGFR-AF ESTONIAN >60 Normal >=60 [facility] Comment on above: Performed By: #### C MP ####[facility] [address] [place], [place] [address]Dr. Pammissy Prudencio EGFR-NON AF ESTONIAN 54 mL/min/1.73m2 Critically low >=60 [facility] Comment on above: Performed By: #### C MP ####[facility] [address] [place], [place] [address]Dr. Errol Flannery Globulin (S) [Mass/Vol] 3.1 g/dL Normal [facility] Comment on above: Performed By: #### C MP ####[facility] [address] [place], [place] [address]Dr. Errol Flannery Glucose [Mass/Vol] 100 mg/dL Normal 74-106 [facility] Comment on above: Performed By: #### C MP ####[facility] [address] [address]Dr. Errol Flannery Potassium [Moles/Vol] 3.6 mmol/L Normal 3.5-5.1 [facility] Comment on above: Performed By: #### C MP ####[facility] [address] [address]Dr. Errol Flannery Protein [Mass/Vol] 5.5 g/dL Critically low 6.4-8.2 [facility] Comment on above: Performed By: #### C MP ####[facility] [address] [address]Dr. Errol Flannery Sodium [Moles/Vol] 140 mmol/L Normal 136-145 [facility] Comment on above: Performed By: #### C MP ####[facility] [address] [address]Dr. Errol Flannery Urea nitrogen [Mass/Vol] 15.0 mg/dL Normal 7.0-18.0 [facility] Comment on above: Performed By: #### C MP ####[facility] [address] [address]Dr. Errol Flannery Urea nitrogen/Creatinine [Mass ratio] 15.5 mg/mg Normal [facility] Comment on above: Performed By: #### C MP ####[facility] [address] [address]Dr. Errol Flannery XR ABD FLAT_UPon 04-05-2022 XR [...] ALEXANDER DUMONT Date: 2022-04-05 07:15 Normal [facility] CBC AUTO DIFFon 04-04-2022 BASO # 0.0 103/ul Normal 0.0-0.1 [facility] Comment on above: Performed By: #### C BC #### [facility] [address] [address] [address] Errol Flannery Basophils/100 WBC (Bld) 0.2 % Normal 0.2-2.0 [facility] Comment on above: Performed By: #### C BC #### [facility] [address] [place] [address] Dr. Errol Flannery EO # 0.0 103/ul Normal 0.0-0.7 [facility] Comment on above: Performed By: #### C BC #### [facility] [address] [place] [address] Dr. Errol Flannery Eosinophils/100 WBC (Bld) 0.0 % Critically low 0.9-7.0 [facility] Comment on above: Performed By: #### C BC #### [facility] [address] [place] [address] Dr. Errol Flannery Erythrocyte distribution width (RBC) [Ratio] 13.6 % Normal 11.0-15.0 [facility] Comment on above: Performed By: #### C BC #### [facility] [address] [place] [address] Dr. Errol Flannery Hematocrit (Bld) [Volume fraction] 44.1 % Normal 36.0-48.0 [facility] Comment on above: Performed By: #### C BC #### [facility] [address] [place] [address] Dr. Errol Flannery Hemoglobin (Bld) [Mass/Vol] 14.5 g/dL Normal 12.0-16.0 [facility] Comment on above: Performed By: #### C BC #### [facility] [address] [place] [address] Dr. Errol Flannery IG # 0.07 10e3/ul Critically high 0.00-0.03 [facility] Comment on above: Performed By: #### C BC #### [facility] [address] [place] [address] Dr. Errol Flannery IG % 0.4 % Normal 0.0-0.5 [facility] Comment on above: Performed By: #### C BC #### [facility] [address] [place] [address] Dr. Errol Flannery LYMPH # 1.4 103/ul Normal 1.2-3.8 [facility] Comment on above: Performed By: #### C BC #### [facility] [address] [place] [address] Dr. Errol Flannery Lymphocytes/100 WBC (Bld) 7.4 % Critically low 20.5-60.0 [facility] Comment on above: Performed By: #### C BC #### [facility] [address] [place] [address] Dr. Errol Flannery MANUAL DIFF REQ NO Normal [facility] Comment on above: Performed By: #### C BC #### [facility] [address] [place] [address] Dr. Errol Flannery MCH (RBC) [Entitic mass] 30.7 pg Normal 26.7-34.0 [facility] Comment on above: Performed By: #### C BC #### [facility] [address] [place] [address] Dr. Errol Flannery MCHC (RBC) [Mass/Vol] 32.9 g/dL Normal 29.9-35.2 [facility] Comment on above: Performed By: #### C BC #### [facility] [address] [place] [address] Dr. Errol Flannery MCV (RBC) [Entitic vol] 93.2 fL Normal 81.0-99.0 [facility] Comment on above: Performed By: #### C BC #### [facility] [address] [place] [address] Dr. Errol Flannery MONO # 1.5 103/ul Critically high 0.3-0.[address] [facility] Comment on above: Performed By: #### C BC #### [facility] [address] [place] [address] Dr. Errol Flannery Monocytes/100 WBC (Bld) 7.8 % Normal 1.7-12.0 [facility] Comment on above: Performed By: #### C BC #### [facility] [address] [place] [address] Dr. Errol Flannery NEUT # 15.6 103/ul Critically high 1.4-6.5 [facility] Comment on above: Performed By: #### C BC #### [facility] [address] [place] [address] Dr. Errol Flannery Neutrophils/100 WBC (Bld) 84.2 % Critically high 43.0-75.0 [facility] Comment on above: Performed By: #### C BC #### [facility] [address] [place] [address] Dr. Errol Flannery Platelet mean volume (Bld) [Entitic vol] 9.6 fL Normal 9.5-13.5 [facility] Comment on above: Performed By: #### C BC #### [facility] [address] [place] [address] Dr. Errol Flannery PLT 260 103/ul Normal 150-450 [facility] Comment on above: Performed By: #### C BC #### [facility] [address] [place] [address] Dr. Errol Flannery RBC 4.73 106/ul Normal 4.20-5.40 [facility] Comment on above: Performed By: #### C BC #### [facility] [address] [place] [address] Dr. Errol Flannery WBC 18.5 103/ul Critically high 4.0-11.0 [facility] Comment on above: Performed By: #### C BC #### [facility] [address] [place] [address] ABD/PELV W CONon [...] LUZ DAHL Date: 2022-04-04 12:09 Normal [facility] Covid-19 PCR ([facility])on 03-19 SARS-CoV-2 (COVID-19) RNA NELLIE+probe Ql (Unsp spec) Not detected Normal NOT DETECTED [facility] Comment on above: Result Comment: When [...] for this test is supported by the Cleaning Professional of Health and Human Service's declaration that [...] used). Performed By: #### L ACT #### [facility] [address] [place] [address] Dr. Errol Flannery ER URINE PROFILEon 2 Bilirubin Ql (U) Negative Normal NEGATIVE [facility] Comment on above: Performed By: #### U MICRO, ERUR #### [facility] [address] [place], [place] [address] Dr. Errol Flannery Clarity (U) SL CLOUDY Abnormal CLEAR [facility] Comment on above: Performed By: #### U MICRO, ERUR #### [facility] [address] [address] [address] Errol Flannery Color (U) YELLOW Normal YELLOW [facility] Comment on above: Performed By: #### U MICRO, ERUR #### [facility] [address] [address] [address] Errol JAMES A micrscopic examination will be performed if indicated. Normal [facility] Comment on above: Performed By: #### U MICRO, ERUR #### [facility] [address] [address] [address] Errol Flannery Glucose Ql (U) Negative Normal NEGATIVE [facility] Comment on above: Performed By: #### U MICRO, ERUR #### [facility] [address] [place] [address] Dr. Errol Flannery Hemoglobin Ql (U) TRACE-INTACT Abnormal NEGATIVE [facility] Comment on above: Performed By: #### U MICRO, ERUR #### [facility] [address] [place] [address] Dr. Errol Flannery Ketones Ql (U) Negative Normal NEGATIVE [facility] Comment on above: Performed By: #### U MICRO, ERUR #### [facility] [address] [place] [address] Dr. Errol Flannery LEUKOCYTES TRACE Abnormal NEGATIVE [facility] Comment on above: Performed By: #### U MICRO, ERUR #### [facility] [address] [place] [address] Dr. Errol Flannery Nitrite Ql (U) Negative Normal NEGATIVE [facility] Comment on above: Performed By: #### U MICRO, ERUR #### [facility] [address] [address] [address] Errol Flannery pH (U) 8.0 [pH] Normal 5-9 [facility] Comment on above: Performed By: #### U MICRO, ERUR #### [facility] [address] [place] [address] Dr. Errol Flannery SPEC GRAVITY 1.010 Normal 1.005-<=1.025 [facility] Comment on above: Performed By: #### U MICRO, ERUR #### [facility] [address] [address] [address] Errol Flannery UA PROTEIN Negative Normal NEGATIVE/ TRACE [facility] Comment on above: Performed By: #### U MICRO, ERUR #### [facility] [address] [address] [address] Errol Flannery UR MICRO IND INDICATED Normal [facility] Comment on above: Performed By: #### U MICRO, ERUR #### [facility] [address] [address] [address] Errol Flannery Urobilinogen Qn (U) 0.2 {Jordyn'U}/dL Normal 0.2 - 1. 0 [facility] Comment on above: Performed By: #### U MICRO, ERUR #### [facility] [address] [place] [address] Dr. Errol Flannery LACTATE/LACTIC ACIDon 2021 Lactate [Moles/Vol] 1.3 mmol/L Normal 0.4-1.9 [facility] Comment on above: Performed By: #### L ACT ####[facility] [address] [address]Dr. Errol Flannery PROF 14(COMP METB)on 022 Albumin [Mass/Vol] 3.3 g/dL Critically low 3.4-5.0 [facility] Comment on above: Performed By: #### C BC #### [facility] [address] [place] [address] Dr. Errol Flannery Albumin/Globulin [Mass ratio] 0.9 {ratio} Normal [facility] Comment on above: Performed By: #### C BC #### [facility] [address] [address] [address] Errol Flannery ALP [Catalytic activity/Vol] 109 U/L Normal 46-116 [facility] Comment on above: Performed By: #### C BC #### [facility] [address] [place] [address] Dr. Errol Flannery ALT [Catalytic activity/Vol] 40 U/L Normal 14-59 [facility] Comment on above: Performed By: #### C BC #### [facility] [address] [address] [address] Errol Flannery Anion gap [Moles/Vol] 10.4 mmol/L Normal [facility] Comment on above: Performed By: #### C BC #### [facility] [address] [address] [address] Errol Flannery AST [Catalytic activity/Vol] 34 U/L Normal 15-37 [facility] Comment on above: Performed By: #### C BC #### [facility] [address] [address] [address] Errol Flannery Bilirubin [Mass/Vol] 0.8 mg/dL Normal 0.2-1.0 [facility] Comment on above: Performed By: #### C BC #### [facility] [address] [address] [address] Errol Flannery Calcium [Mass/Vol] 8.8 mg/dL Normal 8.5-10.1 [facility] Comment on above: Performed By: #### C BC #### [facility] [address] [address] [address] Errol Flannery Chloride [Moles/Vol] 101 mmol/L Normal 98-107 [facility] Comment on above: Performed By: #### C BC #### [facility] [address] [address] [address] Errol Flannery CO2 [Moles/Vol] 30.1 mmol/L Normal 21.0-32.0 [facility] Comment on above: Performed By: #### C BC #### [facility] [address] [address] [address] Errol Flannery Creatinine [Mass/Vol] 1.36 mg/dL Critically high 0.55-1.02 [facility] Comment on above: Performed By: #### C BC #### [facility] [address] [address] [address] Errol Flannery EGFR-AF ESTONIAN 45 mL/min/1.73m2 Critically low >=60 [facility] Comment on above: Performed By: #### C BC #### [facility] [address] [address] [address] Errol Flannery EGFR-NON AF ESTONIAN 37 mL/min/1.73m2 Critically low >=60 [facility] Comment on above: Performed By: #### C BC #### [facility] [address] [address] [address] Errol Flannery Globulin (S) [Mass/Vol] 3.6 g/dL Normal [facility] Comment on above: Performed By: #### C BC #### [facility] [address] [address] [address] Errol Flannery Glucose [Mass/Vol] 107 mg/dL Critically high 74-106 [facility] Comment on above: Performed By: #### C BC #### [facility] [address] [address] [address] Errol Flannery Potassium [Moles/Vol] 3.5 mmol/L Normal 3.5-5.1 [facility] Comment on above: Performed By: #### C BC #### [facility] [address] [address] [address] Errol Flannery Protein [Mass/Vol] 6.9 g/dL Normal 6.4-8.2 [facility] Comment on above: Performed By: #### C BC #### [facility] [address] [address] [address] Errol Flannery Sodium [Moles/Vol] 138 mmol/L Normal 136-145 [facility] Comment on above: Performed By: #### C BC #### [facility] [address] [address] [address] Errol Flannery Urea nitrogen [Mass/Vol] 18.0 mg/dL Normal 7.0-18.0 [facility] Comment on above: Performed By: #### C BC #### [facility] [address] [place] [address] Dr. Errol Flannery Urea nitrogen/Creatinine [Mass ratio] 13.2 mg/mg Normal [facility] Comment on above: Performed By: #### C BC #### [facility] [address] [address] [address] Errol Flannery URINE MICROSCOPIC ONLYon BACTERIA NONE SEEN Normal NONE SEEN [facility] Comment on above: Performed By: #### U MICRO, ERUR ####[facility] [address] [address]Dr. Errol Flannery Bacteria identified Cx Nom (U) NOT INDICATED Normal [facility] Comment on above: Performed By: #### U MICRO, ERUR ####[facility] [address] [address]Dr. Errol Flannery CAST NONE SEEN Normal NONE SEEN [facility] Comment on above: Performed By: #### U MICRO, ERUR ####[facility] [address] [address]Dr. Errol Flannery Crystals LM Nom (Urine sed) NONE SEEN Normal NONE SEEN [facility] Comment on above: Performed By: #### U MICRO, ERUR ####[facility] [address] [address]Dr. Errol Flannery Epithelial cells LM Ql (Urine sed) MANY Abnormal NONE SEEN /RARE [facility] Comment on above: Performed By: #### U MICRO, ERUR ####[facility] [address] [place], [place] [address]Dr. Errol Flannery MUCOUS NONE SEEN Normal NONE SEEN [facility] Comment on above: Performed By: #### U MICRO, ERUR ####[facility] [address] [address]Dr. Errol Flannery RBC 0-2 Normal 0-2 [facility] Comment on above: Performed By: #### U MICRO, ERUR ####[facility] [address] [address]Dr. Errol Flannery WBC 0-2 Abnormal NONE SEEN [facility] Comment on above: Performed By: #### U MICRO, ERUR ####[facility] [address] [address]Dr. Errol Flannery METHYLMALONIC ACID (MMA)on 0 01-07-2022 Methylmalonic Acid, Serum 252 nmol/L Normal 0-378 [facility] Comment on above: Performed By: #### M MA2 ####[facility] [address] [id number] Flannery TSHon 12-30-2021 TSH 2.969 uIU/mL Normal 0.470-4.680 [facility] Comment on above: Performed By: #### T SH ####[facility] [address] [id number] Flannery TSH RANGE SEE BELOW Normal [facility] Comment on above: Result Comment: <0.3 4 UIU/ml HYPERTHYROID 0.34-5.60 UIU/ml EUTHYROID >5.60 UIU/ml HYPOTHYROID Performed By: #### T SH ####[facility] [address] [address]DrElana Flannery VIT B12 AND FOLATEon 022 Cobalamin (Vitamin B12) [Mass/Vol] 466.0 pg/mL Normal 239.0-931.0 [facility] Comment on above: Performed By: #### B 12FOL #### [facility] [facility] [address] [address] [address] Errol Flannery FOLATE >20.00 Normal >=2.76 [facility] Comment on above: Performed By: #### B 12FOL #### [facility] [id number] Errol Flannery [facility] CARDIAC STRESS/REST INJE CTIONon 09-22-2021 [facility] CARDIAC STRESS/REST INJECTION Patient Name: SHAYNA GARCIA STUDY: MYOCARDIAL PERFUSION STRESS TEST WITH LEXISCAN Performing facility: [facility], [address] [place] [address], [address], [place] [id number] [facility] Provider: Keith Claire MD, FACC PCP: Dr. Martha AVINA Supervising provider: Renaldo Jennings MD, FACC INDICATION: Chest Pain; HTN Chest Pain; Chest Pain; HISTORY: Gender: F; Age: 86 y/o ; Height: 0 cm; Weight: 0 kg. HTN; Chest Pain; Denies smoking. COMPARISON: No comparison. ACCESSION NUMBER(S): [id number]; [id number]; [id number] ORDERING CLINICIAN: VASQUEZ CLAIRE TECHNIQUE: ONE DAY [...] Electronically signed by: RENALDO JENNINGS MD Normal [facility] No Panel Informationon 09-22 Normal [facility] 250 DO Work Phone: Falls Risk Screeningon 08-17 Fall risk assessment b) One or more falls in the last year [facility] 250 DO Work Phone: Tobacco use status CPHS b) No [facility] 250 DO Work Phone: [...] No Known Drug Allergies Recorded By: Ally aMrmolejo; 06/04/2021 2:42:35 PM Social History Problems Never [...] 17Aug2021 08:58AM Heart Rate73, L Brachial Artery Riyovwbu775, RUE, Sitting Dwpmkland98, RUE, Sitting Height5 ft Lpkyfu788 lb BMI Umiruuxjau01.25 kg/m2 BSA Calculated1.7 Tobacco Useb) No Fall [...] 01-17-2019 XR hip LT min 2V(w/wo pelvis)* [facility] Main [place] [address] [place] [address] XRay Report Signed Patient: Shayna Garcia MR#: [id number] 431 : 1935 Acct:[id number] Age/Sex: 83 / F ADM Date: 01/17/19 Loc: [facility] Room: Type: [facility] CLI Attending Dr: Daniel Domínguez MD [...] No hardware complication. Impression dictated by: Zechariah rAvizu M.D.01/17/2019 3:28 PM Dictation Location: [place] [address] Transcribed By: [facility] 01/17/19 1528 Dictated By: Zechariah Arvizu II, MD 01/17/19 1527 Signed By: 01/17/19 1528 Normal [facility] Vital Signs Date Time Vital Sign Value Performing Clinician Facility 08-23-2023 11:45-0500 Body height 165.1 cm Moustapha Avina Other [facility] Other 08-23-2023 11:45-0500 Body mass index (BMI) [Ratio] 24.63 kg/m2 Moustapha Ball Other [facility] Other 08-23-2023 11:45-0500 Body weight 67.13 kg Moustapha Ball Other [facility] Other 08-23-2023 11:45-0500 Diastolic blood pressure 81 mm[Hg] Moustapha Ball Other [facility] Other 08-23-2023 11:45-0500 Respiratory rate 12 /min Moustapha Ball Other [facility] Other 08-23-2023 11:45-0500 Systolic blood pressure 134 mm[Hg] Moustapha Ball Other [facility] Other 08-17-2023 09:00-0500 Body height 165.1 cm Moustapha Ball Other [facility] Other 08-17-2023 09:00-0500 Body mass index (BMI) [Ratio] 25.16 kg/m2 Moustapha Ball Other [facility] Other 08-17-2023 09:00-0500 Body weight 68.58 kg Moustapha Ball Other [facility] Other 08-17-2023 09:00-0500 Diastolic blood pressure 93 mm[Hg] Moustapha Ball Other [facility] Other 08-17-2023 09:00-0500 Respiratory rate 12 /min Moustapha Ball Other [facility] Other 08-17-2023 09:00-0500 Systolic blood pressure 158 mm[Hg] Moustapha Ball Other [facility] Other 12-21-2022 11:30-0400 Body height 165.1 cm Moustapha Ball Other [facility] Other 12-21-2022 11:30-0400 Body mass index (BMI) [Ratio] 25.19 kg/m2 Moustapha Ball Other [facility] Other 12-21-2022 11:30-0400 Body weight 68.68 kg Moustapha Ball Other [facility] Other 12-21-2022 11:30-0400 Diastolic blood pressure Moustapha Ball Other [facility] Other 12-21-2022 11:30-0400 Respiratory rate 16 /min Moustapha Ball Other [facility] Other 12-21-2022 11:30-0400 Systolic blood pressure 112 mm[Hg] Moustapha Ball Other [facility] Other 11-24-2022 09:27-0500 Blood Pressure Location KEIKO ROCK [facility] 11-24-2022 09:27-0500 Diastolic blood pressure 86 mm[Hg] KEIKO LEX [facility] 11-24-2022 09:27-0500 Heart rate 70 /min KEIKO LEX [facility] 11-24-2022 09:27-0500 Systolic blood pressure 127 mm[Hg] KEIKO LEX [facility] 11-23-2022 10:00-0500 Body height 165.1 cm Margarito Hravey Other [facility] Other 11-23-2022 10:00-0500 Body mass index (BMI) [Ratio] 31.61 kg/m2 Margarito Harvey Other [facility] Other 11-23-2022 10:00-0500 Body weight 86.18 kg Margarito Harvey Other [facility] Other 11-23-2022 10:00-0500 Diastolic blood pressure 96 mm[Hg] Margarito Brucey Other [facility] Other 11-23-2022 10:00-0500 Systolic blood pressure 152 mm[Hg] Margarito Harvey Other [facility] Other 09-22-2022 08:22-0500 Blood Pressure Location Cassidy Lue [facility] 09-22-2022 08:22-0500 Diastolic blood pressure 83 mm[Hg] Cassidy Lue [facility] 09-22-2022 08:22-0500 Heart rate 70 /min Cassidy Lue [facility] 09-22-2022 08:22-0500 Respiratory rate 16 /min Cassidy Lue [facility] 09-22-2022 08:22-0500 Systolic blood pressure 130 mm[Hg] Cassidy Lue [facility] 09-22-2021 12:00-0500 74 1 Moustapha Avina Work Phone: [facility] [place] Work Phone: Comment on above: [id number] 08-17-2021 08:58-0500 Body height 152.4 cm Moustapha Beth Ball Work Phone: [facility] 250 DO Work Phone: 08-17-2021 08:58-0500 Body mass index (BMI) [Ratio] 31.25 kg/m2 Moustapha Beth Ball Work Phone: [facility] 250 DO Work Phone: 08-17-2021 08:58-0500 Body surface area Derived from formula 1.7 m2 Moustapha Beth Ball Work Phone: [facility] 250 DO Work Phone: 08-17-2021 08:58-0500 Body weight 72.58 kg Moustapha Beth Ball Work Phone: [facility] 250 DO Work Phone: 08-17-2021 08:58-0500 Diastolic blood pressure 84 mm[Hg] Moustapha Beth Ball Work Phone: [facility] 250 DO Work Phone: 08-17-2021 08:58-0500 Heart rate 73 /min Moustapha Beth Ball Work Phone: [facility] 250 DO Work Phone: 08-17-2021 08:58-0500 Systolic blood pressure 136 mm[Hg] Moustapha Avina Work Phone: [facility] 250 DO Work Phone: Encounters Encounter Date Encounter Type Care Provider Facility Start: 11-27-2024 ambulatory KEIKO ROCK Facili ty:TON[facility] Martini Start: 11-22-2023 End: 11-23-2023 ambulatory KEIKO ROCK Facility:[facility] Start: 10-17-2023 End: 10-17-2023 ambulatory Moustapha Avina Other [facility] Other Start: 10-17-2023 Telephone encounter [facility] Start: 08-25-2023 End: 08-25-2023 ambulatory Moustapha Avina Other [facility] Other Start: 08-25-2023 Telephone encounter Moustapha Avina [facility] Start: 08-23-2023 End: 08-23-2023 ambulatory Moustapha Avina Other [facility] Other Start: 08-23-2023 Office outpatient visit 15 minutes Moustapha Avina [facility] Start: 08-22-2023 End: 08-22-2023 ambulatory Moustapha Avina Other [facility] Other Start: 08-22-2023 Telephone encounter Moustapha Avina [facility] Start: 08-17-2023 End: 08-17-2023 ambulatory Moustapha Avina Other [facility] Other Start: 08-17-2023 Patient encounter procedure Moustapha Avina [facility] Start: 07-10-2023 End: 07-10-2023 ambulatory Moustapha Avina Other [facility] Other Start: 07-10-2023 Telephone encounter Moustapha Avina [facility] Start: 05-09-2023 End: 05-09-2023 ambulatory Moustapha Avina Other [facility] Other Start: 05-09-2023 Telephone encounter Moustapha Avina [facility] Start: 05-04-2023 End: 05-05-2023 ambulatory Cassidy Parks Facility:[facility] Start: 01-25-2023 End: 01-25-2023 ambulatory Moustapha Avina Other [facility] Other Start: 01-25-2023 Telephone encounter Moustapha ANGUIANO [facility] Start: 12-21-2022 End: 12-21-2022 ambulatory Moustapha Avian Other [facility] Other Start: 12-21-2022 Office outpatient visit 25 minutes Moustapha Avina [facility] Start: 11-24-2022 End: 11-25-2022 ambulatory KEIKO ROCK Facility:[facility] Start: 11-24-2022 End: 11-24-2022 Patient encounter procedure KEIKO ROCK [facility] Start: 11-23-2022 End: 11-23-2022 ambulatory Margarito Harvey Other [facility] Other Start: 11-23-2022 [facility] visit new patient Margarito Harvey [facility] Start: 11-11-2022 End: 11-11-2022 ambulatory Moustapha Avina Other [facility] Other Start: 11-11-2022 Telephone encounter Moustapha Avina Micaela Avina [facility] Start: 10-15-2022 End: 10-16-2022 ambulatory CASSIDY Huitron Facility:[facility] Start: 09-22-2022 End: 09-22-2022 Lab Drop off Cassidy Parks [facility] Start: 09-22-2022 End: 09-22-2022 Patient encounter procedure Cassidy Parks [facility] Start: 06-08-2022 End: 06-09-[address] MOUSTAPHA AVINA Facility:[facility] Start: 05-21-2022 End: 05-22-[address] MOUSTAPHA AVINA Facility:[facility] Start: 04-28-2022 End: 04-29-[address] MOUSTAPHA AVINA Facility:[facility] Start: 04-06-2022 Adult health examination Moustapha Avina Other [facility] Other Start: 04-04-2022 End: 04-12-2022 Evaluation and management of inpatient DR NAEL SULLIVAN Facility:[facility] Start: 12-30-2021 End: 12-31-[address] ALEXANDER URIBE Facility:[facility] Start: 11-09-2021 End: 11-10-[address] MOUSTAPHA AVINA Facility: Start: 09-24-2021 Chart Update Moustapha Beth Bal l Work Phone: [facility] 250 DO Work Phone: Start: 09-22-2021 Patient encounter procedure Moustapha Avina Work Phone: [facility] [place] Work Phone: Start: 08-17-2021 Office outpatient visit 25 minutes Moustapha Avina Work Phone: [facility] 250 DO Work Phone: Start: 01-17-2019 End: 01-17-2019 Patient encounter procedure Moustapha Avina Facility:[facility] Procedures Date Procedure Procedure Detail Performing [...] Status: Pen, Time: 12:50 PM FUV, Provider: Vasuqez Claire, Status: Pen, Time: 12:50 PM [facility] 250 DO Work Phone: Start: 09-22-2021 STRESS NUC, Provider : SHARYN HHVI NUCLEAR 01,[id number], Status: Pen, Time: 12:00 PM STRESS NUC, Provider: SHARYN HHVI NUCLEAR 01,[id number], Status: Pen, [facility]: 12:00 PM [facility] Work Phone: Immunizations Immunization Date Immunization Notes Care Provider Ezekiel yang 08-17-2023 influenza, high dose seasonal, preservative-free Moustapha Avina Other [facility] Other 07-17-2021 influenza virus vaccine, unspecified formulation KEIKOJACEY ROCK [facility] 07-17-2021 influenza, high dose seasonal, preservative-free Moustapha Kirit Avina [facility] Work Phone: Comment on above: Series: 06-24-2021 influenza virus vaccine, split virus (incl. purified surface antigen) Moustapha Avina Other [facility] Other 03-13-2021 tetanus and diphther ia toxoids, adsorbed, preservative free, for adult use (5 Lf of tetanus toxoid and 2 Lf of diphtheria toxoid) Moustapha Avina Other [facility] Other 02-17-2021 pneumococcal polysaccharide vaccine, 23 valent Moustapha Avina Other [facility] Other 06-04-2020 influenza virus vaccine, split virus (incl. purified surface antigen) Moustapha Avina Other [facility] Other 06-04-2020 influenza virus vaccine, unspecified formulation KEIKO ROCK [facility] 06-04-2020 influenza, high dose seasonal, preservative-free Moustapha Avina Work Phone: [facility] 250 DO Work Phone: 02-15-2020 pneumococcal conjuga te vaccine, 13 valent Moustapha Avina Work Phone: [facility] 03-16-2017 diphtheria, tetanus toxoids and acellular pertussis vaccine, unspecified formulation Moustapha Avina Other [facility] Other 01-17-2015 zoster vaccine, live Joseejacquelin олег Daniela Other [facility] Other Payers Date Payer Category Payer Self-pay 2011 Medicare [id number] 1959 Medicare [id number] 1959 Unknown [id number] 1934 Unknown [id number] 2.16.84 [id number] 1934 Unknown [id number] 2.16.84 [id number] 1934 Unknown [id number] 2.16.84 [id number] 1934 Unknown [id number] 2.16.84 [id number] 1934 Unknown [id number] 2.16.84 [id number] 1934 Unknown [id number] 2.16.84 [id number] 1934 Unknown [id number] 2.16.84 [id number] 1934 Unknown [id number] 2.16.8 [id number] 1934 Unknown [id number] 2.16.8 [id number] 1934 Unknown [id number] 2.16.8 [id number] 1934 Unknown [id number] 2.16.8 [id number] Unknown [id number] 2.16.84 [id number] Unknown Social History Date Type Detail Facility No illicit drug use No illicit drug use [facility] 250 DO Work Phone: Start: 09-22-2022 Tobacco smoking status Never s moked tobacco (finding) [facility] Sex Assigned At Female [facility] Functional Status Date Assessment Result Facility 11-24-2022 Functional Status N/A [facility] 09-22-2022 Functional Status N/A [facility] Clinical Notes 11-09-2021 to 08-23-2023 Note Date [...] adequate fluid balance and to avoid dehydration. [facility] Other 12-05-2023 History general Narrative - Reported* [...] History DIVERTICULITIS 2021 Hospitalization History see above [facility] Other 11-29-2023 Evaluation note* Encounter Date Diagnosis [...] Ensure daily Check CBC, BS, Hepatic enzymes [facility] Other 11-29-2023 History general Narrative - Reported* [...] History DIVERTICULITIS 2021 Hospitalization History see above [facility] Other 10-25-2023 History general Narrative - Reported* [...] History DIVERTICULITIS 2021 Hospitalization History see above [facility] Other 08-21-2023 Evaluation note* Encounter Date Diagnosis Assessment Notes Treatment Notes Treatment Clinical Notes Apr, Acute cystitis without hematuria (ICD-10 - N30.00) [facility] Other 04-04-2023 Evaluation note* Encounter Date Diagnosis [...] to evaluate for FB in right EAC [facility] Other 03-08-2023 Hospital Discharge instructions Patient Education [...] symptoms are. Treatment may include: Using an vcpr-mjc-bkbpcwi vaginal lubricant before sex. Using a long-acting [...] Follow these instructions at home: Medicines Take ztgc-byb-bhnhvvq and prescription medicines only as told by your health care provider. Do not use herbal or alternative medicines unless your health care provider says that you can. Use tqjw-bga-rpklqlb creams, lubricants, or moisturizers for dryness only [...] 01/20/2016 Document Revised: 08/18/2018 Document Reviewed: 06/01/2018 [employer] Patient Education 2020 [employer] Follow Up Care 09/22/2022 09:57:43 With:LEX HARRY, KEIKO Beth, URL Address: When:1 year [facility] 03-07-2023 Evaluation note* Encounter Date Diagnosis Assessment Notes Treatment Notes Treatment Clinical Notes Nov, Constipation (ICD-10 - K59.00) PATIENT TO START ON A MIRALAX DAILY, TITRATION DOSAGE. RTO IN 3 MONTHS [facility] Other 02-23-2023 Evaluation note* Encounter Date Diagnosis Assessment Notes Treatment Notes Treatment Clinical Notes Oct, Insomnia due to other mental disorder (ICD-10 - F51.05) Oct, Mental disorder, not otherwise specified (ICD-10 - F99) [facility] Other 01-04-2023 Hospital Discharge instructions Patient Education 09/22/2022 09:23:59 Urinary Tract Infection, Adult, Gqrd-sa-Zqsd Urinary Tract Infection, Adult A urinary tract [...] Follow these instructions at home: Medicines Take jlpk-swn-yytlrsz and prescription medicines only as told by [...] 02/21/2009 Document Revised: 08/23/2019 Document Reviewed: 03/15/2019 [employer] Patient Education 2019 [employer]. Follow Up Care 08/24/2022 11:34:30 With:Charly TODD, GEETHA Hillman, URO Address: [address] [phone] When:Within 2 Month(s) [facility] 09-02-2022 NotePROCEDURE: XR GI UPPER AIR KUB [...] Electronically authenticated by: GENO PIZARRO Date: 2022-05-21 10:11[facility]09-02-2022 NotePROCEDURE: XR GI UPPER AIR KUB DUAL [...] Electronically authenticated by: GENO PIZARRO Date: 2022-05-21 10:11[facility]02-21-2022 NotePROCEDURE: XR HIP LT 2 3V W [...] Electronically authenticated by: ALEXANDER DUMONT Date: 2021-11-09 17:46[facility] Future App[facility]ments Appointment Date:11/24/2022 08:45:00 AM Scheduled Provider:Cassidy Parks MD Location:[facility] Appointment Type:URO Office Visit [facility] evaluation + Plan note Future Appointments Appointment Date:11/24/2022 08:45:00 AM Scheduled Provider:Cassidy Parks MD Location:[facility] Appointment Type:URO Office Visit Diagnostic Tests Pending * Urine Culture [facility] App[facility]ments Appointment Date:11/22/2023 08:30:00 AM Scheduled Provider:KEIKO ROCK PA-C Location:[facility] Appointment Type:URO Office Visit [facility] evaluation noteNo [facility] Other History general Narrative - Reported* Type [...] History DIVERTICULITIS 2021 Hospitalization History see above [facility] Other History of Present illness NarrativePatient returns [...] [facility] Work Phone: Hospital course Narrative No data available for this section [facility] Hospital Discharge instructions No data available for this section [facility] No data available for this section [facility] reason for visit Narrativewants referral to home health care and therapyNort [facility] Other Summary Purpose Family History No Family [...] t ear, initial encounter (T16.1XXA) Referral Organization [facility] Audra sebastian Referring Provider First Name Moustapha Referring Provider Last Name Daniela Referring Provider Specialty Internal Me dicine Referred Provider Tana Woodall Referred Provider Specialty Ear, Nose an d Throat Referral Priority Routine Additional Source Comments INFORMATION SOURCE (unrecogn ized section and content) DATE CREATED AUTHOR 02/01/2019 [facility] DATE CREATED AUTHOR AUTHOR'S ORGANIZ ATION 08/18/2021 [employer] DATE CREATED AUTHOR AUTHOR'S ORGANIZ ATION 09/24/2021 [facility] DATE CREATED AUTHOR AUTHOR'S ORGANIZ ATION 10/20/2022 [facility] DATE CREATED AUTHOR AUTHOR'S ORGANIZ ATION 11/23/[address] [facility] Patient Care team informatio n (unrecognized section and content) Personnel Name: MOUSTAPHA AVINA DO Address: Address: [address] [facility] Scarlett ROGERS, [address] Name: Brandin Reinforcing Steel Machine Operator, Christel Name: JuanhansaChasity Personnel Name: MOUSTAPHA AVINA DO Address: Address: [address] Name: Brandin Reinforcing Steel Machine Operator, Christel Name: MosestorreyChasity Personnel Name: MOUSTAPHA AVINA DO Address: Address: [address] [facility] Scarlett ROG[place], [address] Name: Branidn Reinforcing Steel Machine Operator, Christel Name: Kwabena Chasity REASON FOR VISIT [...] BE BASED ON THE PRIMARY CLINICAL RECORDS. [employer] provides no warranty or guarantee of the accuracy or completeness of information in this document.
[2024-01-10] MEDS: 0.9 % SODIUM CHLORIDE 1,000 ML 100 ML IV (22:49)
--- NOTE | 2024-01-10 23:17 | PC.NURSE ---
per the pt daughter, Lauren, the patient lives alone and has 8-10 steps that she would need to climb to get into her house. She does have meals on wheels. She also has a life alert but the patient refuses to wear it. The daughter lauren lives next to the patient but states that she is unable to climb the stairs into the pt's house. The other daughter, Jumana, is concerned that she is not taking her meds because the last time she went to fill her weekly containers, only two doses were removed.
[2024-01-11] VITALS (9 sets, daily range): BP systolic 101–143; BP diastolic 60–78; PULSE 64–84; TEMP 36.4–37.6; O2SAT 90–96
[2024-01-11 05:45] LABS: Hematocrit 36.3 % (36.0-48.0); Hemoglobin 11.4 g/dL (12.0-16.0); Mean Corpuscular HGB Conc 31.4 g/dL (29.9-35.2); Mean Corpuscular Hemoglobin 29.8 pg (26.7-34.0); Mean Corpuscular Volume 94.8 fL (81.0-99.0); Mean Platelet Volume 9.2 fL (9.5-13.5); Platelet Count 202 10^3/uL (150-450); Red Blood Count 3.83 10^6/uL (4.20-5.40); Red Cell Distribution Width 14.4 % (11.0-15.0); White Blood Count 6.3 10^3/uL (4.0-11.0)
[2024-01-11 05:53] LABS: Alanine Aminotransferase 189 U/L (14-59); Albumin Globulin Ratio 0.6; Albumin Level 2.2 g/dL (3.4-5.0); Alkaline Phosphatase 340 U/L (46-116); Anion Gap 11.8; Aspartate Amino Transferase 151 U/L (15-37); BUN Creatinine Ratio 20.1; Bilirubin Total 0.6 mg/dL (0.2-1.0); Calcium 8.3 mg/dL (8.5-10.1); Carbon Dioxide 23.4 mmol/L (21.0-32.0); Chloride 103 mmol/L (98-107); Estimated GFR (African America 42 (>=60); Estimated GFR (Non-African Ame 34 (>=60); Globulin 3.7 g/dL; Glucose 74 mg/dL (74-106); Potassium 4.2 mmol/L (3.5-5.1); Sodium 134 mmol/L (136-145); Total Protein 5.9 g/dL (6.4-8.2)
[2024-01-11 06:47] LABS: Atypical Lymphocytes Abs Man 2.07; Band Neutrophils Absolute 0.8 10^3/uL (0.0-0.3); Lymphocytes Absolute Manual 0.56 10^3/uL (1.20-3.80); Monocytes Absolute Manual 0.69 10^3/uL (0.30-0.80); Segmented Neut Absolute Manual 2.14 10^3/uL (1.4-6.5)
[2024-01-11] MEDS: LISINOPRIL 10 MG TABLET PO (08:44)
[2024-01-11] MEDS: HEPARIN SODIUM (PORCINE) 5,000 UNIT/ML VIAL 5000 UNIT SUBQ ×2 (08:44→21:18)
[2024-01-11] MEDS: MEMANTINE HCL 28 MG CAP XR PO (08:44)
[2024-01-11] MEDS: ASPIRIN 81 MG TABLET.DR PO (08:44)
[2024-01-11] MEDS: 0.9 % SODIUM CHLORIDE 1,000 ML 100 ML IV ×2 (08:44→18:53)
--- NOTE | 2024-01-11 10:48 | US_ITS ---
The [address] [address] Patient Name: SHAYNA GARCIA MRN: [id number] date: 1935 Sex: F Assigned Patient Location: [place] Current Patient Location: [place] Accession/Order Number: [id number] Exam Date: 01/11/2024 17:05 Report Date: 01/11/2024 20:27 At the request of: GUANAKITO COOPER Procedure: US right upper quadrant EXAM: US right upper quadrant HISTORY: transaminitis COMPARISON: CT abdomen/pelvis dated 10/15/2022. TECHNIQUE: Limited right upper quadrant ultrasound is performed. Multiple grayscale and color images are submitted for review. FINDINGS: This is a limited examination due to obscuration by bowel gas. The liver appears unremarkable with normal size and echotexture. The portal vein appears patent with normal hepatopedal flow. The pancreas is not well visualized due to obscuration by bowel gas. The gallbladder is surgically absent. Common bile duct measures 7.2 mm in diameter. The right kidney measures 10 x 5.1 x 4.8 cm and demonstrates normal echotexture. The right renal cortex measures 0.9 cm in thickness. 2 hyperechoic areas are seen in the superior pole of the right kidney measuring approximately 3 mm and 9 mm, which may represent angiomyolipomas. No significant hydronephrosis is seen. A 1 cm right renal cyst is seen. 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 No significant hydronephrosis is seen. A 1 cm right renal cyst is seen. Electronically authenticated by: LESLI HUTSON Date: 01/11/2024 20:27
[2024-01-11 11:34] LABS: Ammonia 34 umol/L (11-32)
--- NOTE | 2024-01-11 11:52 | CM.NOTE ---
Rounds made with Dr. Arango, no discharge today. Dr. Arango will change pt to inpt and further testing d/t elevated liver enzymes.
--- NOTE | 2024-01-11 12:32 | SWNOTE1 ---
SW called pt's daughter to discuss dc needs, pt has dementia. Pt's daughter is eating lunch and will be in after.
--- NOTE | 2024-01-11 12:49 | SWNOTE1 ---
DELLA spoke to pt's daughter, Jumana. DELLA spoke with her about pt going to rehab. SW let her know that pt is now inpatient. For Medicare to pay, she will need 3 day inpt stay. DELLA advised her daughter that it is possible that pt may get better and recover and be medically stable prior to the 3 day stay. In this care rehab would be out of pocket. She voiced understanding. DELLA reviewed list from medicare.gov and pt's daughter would like her to stay in [place]. She would like [facility] as first choice and [facility] as second. Pt does live at home and has 15-20 steps to go up. Pt's daughter lives next door, but she is not able to go up the stairs due to her health. Important Message from Medicare reviewed and discussed with patient. Pt. verbalized understanding and signed the form. Original given to patient and copy placed in patient?s chart. DELLA called [facility] to see if they have openings.
--- NOTE | 2024-01-11 13:19 | SWNOTE1 ---
SW spoke to Jumana at [facility] and they are not sure when they will have opening, other pt's are appealing there discharge so she is not sure. DELLA spoke to Ladonna at [facility] and they will have a private room open on Tuesday and semi-private on Tuesday. Referral sent to [facility]. Referral included face sheet, ED note, H&P, provider notes, case management report, nursing notes, diagnostic imaging, med list, and PT/OT notes.
--- NOTE | 2024-01-11 14:01 | P.HP_ITS ---
<Statement entered by Fawn Arango DO - 01/11/24 15:40> This documentation has been reviewed and approved. I have also seen and evaluated patient at the time of admission and agree with the assessments and plan of care. I agree inpatient status with new findings of transaminitis, and need for further work up that requires medically necessary hospital care. HPI H&P: HPI History of Present Illness Chief complaint: fall Dehydration Narrative: 01/11/24 1010 This is an 88-year-old female patient with a past medical history as outlined below including hypertension and dementia; who presented to the ED last night after an unwitnessed fall at home. The patient lives with her daughter, but was apparently home alone at the time of the fall. She was discovered by family when they returned home. The family is concerned that she has been a little more confused recently than her baseline, but it is unclear if this reflects progression of her chronic disease or some other acute process. Workup in the ED revealed mild JOSE on baseline CKD 3a (BUN 32, CR 1.78, GFR 27), and mild hyponatremia (131). She was also noted to be clinically dehydrated. An x-ray of the lumbar spine revealed no fracture or dislocation. An EKG revealed sinus rhythm. A UA was negative for infection. She was admitted last night in observation to the hospitalist service. At the time of my exam the patient is sitting up in a bedside chair. She is awake and alert and oriented x 3, but frequently confused about the events and her answers to questions are sometimes nonsensical. The patient describes her fall yesterday as occurring while ambulating to the living room with 2 canes and being thrown off balance by one of her canes. She reports she could not catch her balance and fell and was unable to get back up. She also reports recent increase in loss of balance from baseline. She currently denies any dizziness, chest pain, shortness of breath, or any acute complaint. Due to her baseline dementia the veracity of this description is at least somewhat suspect. A.m. labs today revealed abrupt transaminitis since she her most recent labs in September. Etiology of this transaminitis is unclear. We will obtain an acute hepatitis panel and a right upper quadrant ultrasound to further evaluate her liver. We have also added on an ammonia level to her a.m. labs. In setting of JOSE, dehydration, and transaminitis, we have changed the patient's admission to a full inpatient. Opioid HPI Opioid Management Most Recent Opioid Data: Last Pain Assessment 01/11/24 13:00 Last ORT Total Score 0 01/10/24 22:18 Last ORT Risk Category Low Risk 01/10/24 22:18 Review of Systems ROS Status of ROS 10 or more systems reviewed and unremark able except as noted in history and below [facility] Medical History (Updated 01/11/24 @ 14:21 by María Bermudez NP) Dementia ?F03.90 - Unspecified dementia, unspecified severity, without behavioral dis turbance, psychotic disturbance, mood disturbance, and anxiety (ICD-10) Hallucination, visual ?R44.1 - Visual hallucinations (ICD-10) Macular degeneration ?H35.30 - Unspecified macular degeneration (ICD-10) Hypertension ?I10 - Essential (primary) hypertension (ICD-10) Arthritis ?M19.90 - Unspecified osteoarthritis, unspecified site (ICD-10) Memory loss ?R41.3 - Other amnesia (ICD-10) Diverticulitis ?K57.92 - Diverticulitis of intestine, part unspecified, without perforation or abscess without bleeding (ICD-10) Surgical History (Updated 01/10/24 @ 23:14 by Katy Whittaker RN) Hx of cholecystectomy ?Z90.49 - Acquired absence of other specified parts of digestive tract (ICD- 10) History of left hip replacement ?Z96.642 - Presence of left artificial hip joint (ICD-10) Family History (Updated 01/10/24 @ 22:17 by Katy Whittaker RN) Daughter Family history of CHF (congestive heart failure) Family history of diabetes mellitus Family history of hypertension Family history of myocardial infarction Mother Family history of diabetes mellitus Other Family history of cancer Social History (Updated 01/10/24 @ 22:18 by Katy Whittaker, MARISEL) Within the past year, how often did you have a drink containing alcohol: never Score interpretation: A score less than 3 is consistent with normal alcohol consumption. Smoking status: Never smoker Non-prescribed substance use: denies use Highest level of school completed/degree received: high school graduate Are you now , , , , never or living with a partner: In a typical week, how many times do you talk on the telephone with family, friends, or neighbors: twice per week How often do you get together with friends or relatives: twice per week Do you think of yourself as: straight/heterosexual Gender Identity: female Meds Home Medications and Allergies Home Medications ?Medication ?Instructions ?Recorded ?Confirmed ?Type aspirin 81 mg tablet,delayed 81 mg PO DAILY 01/10/24 01/10/24 History release (Adult Aspirin Regimen) donepezil 10 mg tablet 10 mg PO BEDTIME 01/10/24 01/10/24 History lisinopril 10 mg tablet 10 mg PO DAILY 01/10/24 01/10/24 History memantine 10 mg tablet 10 mg PO BID 01/10/24 01/10/24 History mirtazapine 15 mg disintegrating 15 mg PO BEDTIME 01/10/24 01/10/24 History tablet Allergies Allergy/AdvReac Type Severity Reaction Status Date / Time No Known Drug Allergies Allergy Verified 01/10/24 19:02 Exam Constitutional Vital Signs, click to edit/add: Last Vital Signs Temp 98.0 F 01/11/24 12:00 Pulse 71 01/11/24 12:00 Resp 16 01/11/24 12:00 BP 121/66 01/11/24 12:00 Pulse Ox 95 01/11/24 12:00 O2 Del Method Room Air 01/11/24 12:00 Common normals: no apparent distress, oriented x3, alert and well nourished General appearance: cooperative Orientation/consciousness: Yes awake HENAK Common normals: normocephalic, head/scalp atraumatic, hearing grossly normal bilaterally, external nose normal and moist oral mucous membranes Eye Common normals: PERRL, EOMs intact bilaterally, conjunctivae normal and no scleral icterus Alignment: alignment normal Eyelid: eyelids normal Neck & C-Spine Common normals: full ROM, supple and no JVD Chest Common normals: inspection of chest normal Chest: symmetrical chest wall rise Respiratory Common normals: normal respiratory effort, no retractions, no use of accessory muscles and clear to auscultation bilaterally Effort & inspection: able to speak in complete sentences Cardio Common normals: no JVD, regular rate, regular rhythm, S1 normal heart sound, S2 normal heart sound, no gallops, no clicks, no rub and peripheral pulses 2+ throughout Jugular venous distention: JVD to the level of the angle of the jaw (Right side) Heart sounds: murmur (HSM 3/6) GI Common normals: Normal to inspection, nondistended, normoactive bowel sounds pr esent, soft to palpation, non-tender, no hepatosplenomegaly, no masses and no bruits Bladder/kidney exam: bladder normal to palpation Back & Pelvis Common normals: thoracic and lumbar spine normal to inspection Extremity Common normals: normal capillary refill and no pedal edema General: normal exam except as noted; no clubbing and no cyanosis Neuro Irineo Coma Scale: GCS not evaluated Common normals: CN's II-XII intact bilaterally, moves all extremities, no focal motor deficits and no sensory deficits noted Speech: speech normal Motor exam: strength 5/5 throughout Psych Common normals: mental status grossly normal, thought process normal, affect normal and activity/motor behavior normal Speech: other (Nonsensical answers at times) Mood and affect: euthymic mood Thought process: disorganized and confused Attention/concentration: attention grossly intact Memory/cognition: memory grossly intact Insight: limited Judgement: limited Results Labs Labs: Short CBC 01/10/24 01/11/24 Range/Units 19:39 04:55 WBC 6.3 6.3 (4.0-11.0) 10^3/uL Hgb 12.1 11.4 L (12.0-16.0) g/dL Hct 37.0 36.3 (36.0-48.0) % Plt Count 219 202 (150-450) 10^3/uL BMP 01/10/24 01/11/24 19:39 04:55 Sodium 131 L 134 L Potassium 4.3 4.2 Chloride 99 103 Carbon Dioxide 22.3 23.4 BUN 32.0 H 29.0 H Creatinine 1.78 H 1.44 H Glucose 84 74 Calcium 8.7 8.3 L Liver Function 01/11/24 Range/Units 04:55 Total Bilirubin 0.6 (0.2-1.0) mg/dL AST 151 H (15-37) U/L ALT 189 H (14-59) U/L Alkaline Phosphatase 340 H (46-116) U/L Albumin 2.2 L (3.4-5.0) g/dL Urine 01/10/24 Range/Units 19:46 Urine Color Dk. orange (YELLOW) Urine Clarity Clear (CLEAR) Urine pH 5.5 (5.0-9.0) Ur Specific [place] 1.025 (1.005-1.025) Urine Protein 30 A (NEG/TRACE) mg/dL Urine Glucose (UA) Negative (NEGATIVE) mg/dL Pulse Oximetry Attestation: I have reviewed the pertinent pulse oximetry results. ECG Attestation: ?I have reviewed the pertinent ECG results. Interpretation: Sinus rhythm Moderate right axis deviation Low QRS voltage in chest leads Atypical ECG Imaging Lumbar spine X-ray: Attestation: I have reviewed the pertinent imaging results. Radiologist's impression: IMPRESSION: No fracture or dislocation lumbar spine. Mild osteopenia and multilevel degenerative changes lumbar spine. Assessment and Plan Assessment and Plan (1) JOSE (acute kidney injury): Assessment and Plan: Acute * Adm inpatient * Likely 2/2 dehydration * 60% reduction in Cr (1.78 from 1.09), but only 0.13 ml/kg/hr output since admission (> 12 hrs) * Meets RIFLE criteria for stage 2 renal injury * NS 500 ml bolus given in ED * NS IVF at 100/hr since admission - continue * Hold home lisinopril d/t renal toxicity * Consider TeleNephrology consult pending clinical course * CMP daily (2) Dehydration with hyponatremia: Assessment and Plan: Acute * 2/2 poor oral intake in setting of dementia * IVF as above * CMP daily (3) Transaminitis: Assessment and Plan: Acute * Unclear etiology * Add on Acute Hepatitis Panel today (send out - results in 24-48 hrs) * Pt afebrile and no indication of recent acute illness * US RUQ to assess for obstructive or other pathology * CMP daily (4) Fall: Assessment and Plan: Acute * Unwitnessed fall, unclear etiology * C/o back pain post fall - Lumbar spine XR unremarkable * No other acute c/o pain today * PT/OT consults for eval and treat * Transition from canes to walker for ambulation * Likely will need placement at SNF for rehab at discharge (5) Hypertension: Assessment and Plan: Chronic * Continue home lisinopril (6) Dementia: Assessment and Plan: Chronic * Continue home namenda, donepezil and mirtazepine Urinary Catheter Management Urinary Catheter Management Straight: Cath placed during this visit: yes Urethral indwelling: No Insertion date: 01/10/24 Insertion time: 19:45
--- NOTE | 2024-01-11 15:58 | SWNOTE1 ---
SW called and spoke to pt's daughter, Jumana, and let her know [facility] is able to accept once pt is medically stable.
--- NOTE | 2024-01-11 16:01 | SWNOTE1 ---
Correction from previous documentation, Important Message from [employer] reviewed and discussed with patient's daughter. Pt's daughter verbalized understanding and signed the form. Original given to patient's daughter and copy placed in patient?s chart.
[2024-01-11] MEDS: ACETAMINOPHEN 325 MG TABLET 650 MG PO (16:30)
[2024-01-11] MEDS: DONEPEZIL HCL 10 MG TABLET PO (21:18)
[2024-01-11] MEDS: MIRTAZAPINE 15 MG TABLET PO (21:18)
[2024-01-11 21:26] LABS: Glucometer 176 mg/dL (74-106)
--- NOTE | 2024-01-11 21:35 | CT_ITS ---
The [address] [address] Patient Name: SHAYNA GARCIA MRN: [id number] date: 1935 Sex: F Assigned Patient Location: [place] Current Patient Location: [place] Accession/Order Number: [id number] Exam Date: 01/11/2024 22:00 Report Date: 01/11/2024 22:58 At the request of: NAHED CANDELARIA Procedure: CT head/brain wo con EXAM: CT head/brain wo con HISTORY: fall at home COMPARISON: None. TECHNIQUE: Noncontrast axial CT images through the head were obtained with coronal and sagittal reformats. Dose reduction techniques were achieved by using automated exposure control and/or adjustment of mA and/or kV according to patient size and/or use of iterative reconstruction technique. FINDINGS: There is generalized volume loss. There is decreased attenuation within the periventricular, deep, and subcortical white matter suggestive of chronic microvascular ischemic changes. There is no evidence of intracranial hemorrhage, mass, or midline shift. No extra-axial fluid collection is seen. There is scattered mucosal thickening in the paranasal sinuses. Frothy secretions are seen within the right sphenoid sinus. Otherwise, the paranasal sinuses and mastoid air cells are clear. No skull abnormalities are identified. Dental hardware causes streak artifact which renders evaluation of adjacent structures suboptimal. CT/CT head/brain wo con IMPRESSION: 1. No acute intracranial abnormality. 2. Sinus disease. Please correlate for acute sinusitis. Electronically authenticated by: Shauna NEFF Date: 01/11/2024 22:58
--- NOTE | 2024-01-11 21:35 | XR_ITS ---
The [address] [address] Patient Name: SHAYNA GARCIA MRN: [id number] date: 1935 Sex: F Assigned Patient Location: [place] Current Patient Location: Accession/Order Number: [id number] Exam Date: 01/11/2024 22:00 Report Date: 01/11/2024 22:54 At the request of: NAHED CANDELARIA Procedure: XR chest 1V EXAM: XR chest 1V HISTORY: rhonchi COMPARISON: Chest radiograph dated 04/28/2022. TECHNIQUE: One view of the chest was obtained. FINDINGS: The cardiac silhouette is stable in size. Aortic atherosclerotic disease is seen. There is no significant pneumothorax or right pleural effusion. There is a small left pleural effusion with bibasilar opacities. No acute osseous abnormality is seen. XR/XR chest 1V IMPRESSION: 1. Small left pleural effusion with bibasilar opacities that could represent atelectasis, aspiration changes, and/or pneumonia. Electronically authenticated by: Shauna NEFF Date: 01/11/2024 22:54
--- NOTE | 2024-01-11 22:17 | PC.NURSE ---
2119- RN in room to round. Pt lethargic and diaphoretic. Pt not responding to voice and RN had to sternal rub for pt to arouse. Rhonchi noted bilaterally throughout. slight left facial droop with sluggish left pupil. BP 113/65; HR 75; RR 20; 93% 2 L nasal canula. blood sugar was 176. IV fluids were stopped. tele-hospitalist ordered CXR and Head CT. Pt placed on telemetry and continuous pulse ox and neuro assessment Q4H ordered.
[2024-01-12] VITALS (19 sets, daily range): BP systolic 109–155; BP diastolic 67–89; PULSE 71–81; TEMP 36.3–37.2; O2SAT 91–95
[2024-01-12 01:03] LABS: Bilirubin Urine NEGATIVE (NEGATIVE); Blood Urine NEGATIVE (NEGATIVE); Clarity Urine CLEAR (CLEAR); Color Urine YELLOW (YELLOW); Glucose Urine UA NEGATIVE (NEGATIVE); Ketones Urine NEGATIVE (NEGATIVE); Leukocyte Esterase Urine SMALL (NEGATIVE); Nitrite Urine NEGATIVE (NEGATIVE); Protein Urine TRACE mg/dL (NEG/TRACE); pH Urine 5.5 (5.0-9.0)
[2024-01-12 01:04] LABS: Urine Microscopic Indicated YES
[2024-01-12] MEDS: CEFTRIAXONE 1,000 MG in 0.9 % SODIUM CHLORIDE 50 ML 100 MG IV (01:10)
[2024-01-12 01:11] LABS: Bacteria Urine SMALL #/HPF (NONE SEEN); Cast Seen? NONE SEEN #/LPF (NONE SEEN); Crystals Seen? None Seen #/HPF (None Seen); Mucus Urine NONE SEEN (NONE SEEN); RBC Urine 0-2 #/HPF (0-2); Squamous Epithelial Cell Urine FEW #/LPF (NONE/RARE); Urine Culture Indicated YES
[2024-01-12] MEDS: AZITHROMYCIN 500 MG in 0.9 % SODIUM CHLORIDE 250 ML 250 MG IV (01:49)
[2024-01-12 04:54] LABS: Basophils Absolute Auto 0.1 10^3/uL (0.0-0.1); Basophils Percent Auto 1.4 % (0.2-2.0); Hematocrit 36.3 % (36.0-48.0); Hemoglobin 11.4 g/dL (12.0-16.0); Immature Granulocytes Abs Auto 0.07 10^3/uL (0.00-0.03); Immature Granulocytes Pct Auto 1.2 % (0.0-0.5); Lymphocytes Absolute Auto 3.3 10^3/uL (1.2-3.8); Mean Corpuscular HGB Conc 31.4 g/dL (29.9-35.2); Mean Corpuscular Hemoglobin 29.5 pg (26.7-34.0); Mean Corpuscular Volume 93.8 fL (81.0-99.0); Mean Platelet Volume 9.9 fL (9.5-13.5); Monocytes Absolute Auto 0.4 10^3/uL (0.3-0.8); Monocytes Percent Auto 6.7 % (1.7-12.0); Neutrophils Percent Auto 33.7 % (43.0-75.0); Platelet Count 199 10^3/uL (150-450); Red Blood Count 3.87 10^6/uL (4.20-5.40); Red Cell Distribution Width 14.5 % (11.0-15.0); White Blood Count 5.8 10^3/uL (4.0-11.0)
[2024-01-12 05:08] LABS: HBsAg Screen Negative (Negative); HCV Ab Non Reactive (Non Reactive); Hep A Ab, IgM Negative (Negative); Hep B Core Ab, IgM Negative (Negative)
[2024-01-12 05:16] LABS: Alanine Aminotransferase 216 U/L (14-59); Albumin Globulin Ratio 0.5; Albumin Level 2.1 g/dL (3.4-5.0); Alkaline Phosphatase 331 U/L (46-116); Anion Gap 10.7; Aspartate Amino Transferase 250 U/L (15-37); BUN Creatinine Ratio 18.5; Bilirubin Total 0.6 mg/dL (0.2-1.0); Calcium 8.2 mg/dL (8.5-10.1); Carbon Dioxide 25.2 mmol/L (21.0-32.0); Chloride 105 mmol/L (98-107); Estimated GFR (African America 49 (>=60); Estimated GFR (Non-African Ame 41 (>=60); Globulin 3.9 g/dL; Glucose 108 mg/dL (74-106); Potassium 3.9 mmol/L (3.5-5.1); Sodium 137 mmol/L (136-145)
--- NOTE | 2024-01-12 07:47 | CT_ITS ---
[address] [address] Patient Name: SHAYNA GARCIA MRN: [id number] date: 1935 Sex: F Assigned Patient Location: [place] Current Patient Location: [place] Accession/Order Number: [id number] Exam Date: 01/12/2024 11:00 Report Date: 01/12/2024 13:22 At the request of: GUANAKITO COOPER Procedure: CT abdomen w con EXAMINATION: CT abdomen w con HISTORY: Transaminitis COMPARISON: No relevant comparison available. TECHNIQUE: Axial, Coronal, and Sagittal images were obtained without and/or with IV contrast as indicated by examination type. Dose reduction techniques were achieved by using automated exposure control and/or adjustment of mA and/or kV according to patient size and/or use of iterative reconstruction technique FINDINGS: LUNG BASES: Right pleural effusion 1.5 cm in thickness. Trace amount left pleural fluid. Mild atelectasis versus infiltrates within posterior lung bases. LIVER: No enlargement, atrophy, abnormal density, or significant focal lesion. BILIARY: Cholecystectomy. PANCREAS: 1.3 cm pseudocyst within tail of pancreas. No mass or abnormal duct dilation. SPLEEN: No enlargement or focal lesion. ADRENALS: No mass or enlargement. KIDNEYS: Several benign-appearing renal cysts bilaterally. 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 Moderate cortical thinning. BOWEL/MESENTERY: No visible mass, obstruction, or bowel wall thickening. Small moderate free fluid within the right paracolic gutter. AORTA/VASCULAR: No aneurysm or dissection. RETROPERITONEUM: No mass or adenopathy. ABDOMINAL WALL: No mass or hernia. BONES: No bony lesion or fracture. OTHER: Negative. CT/CT abdomen w con IMPRESSION: 1. Normal CT appearance of the liver. 2. Small right, tiny left pleural effusions with mild atelectasis or infiltrates within lung bases. 3. Stable pseudocyst within tail of pancreas. No suspicious findings. 4. Trace amount of free fluid within right paracolic gutter, possibly secondary to the pleural fluid. No convincing acute inflammatory changes of the ascending colon. Correlate for clinical symptoms. Electronically authenticated by: ALEXANDER DUMONT Date: 01/12/2024 13:22
[2024-01-12] MEDS: HEPARIN SODIUM (PORCINE) 5,000 UNIT/ML VIAL 5000 UNIT SUBQ ×2 (08:59→21:20)
[2024-01-12] MEDS: MEMANTINE HCL 28 MG CAP XR PO (08:59)
[2024-01-12] MEDS: GUAIFENESIN 600 MG TAB.ER.12H PO ×2 (08:59→21:21)
[2024-01-12] MEDS: ASPIRIN 81 MG TABLET.DR PO (08:59)
[2024-01-12] MEDS: 0.9 % SODIUM CHLORIDE 1,000 ML 50 ML IV (09:01)
[2024-01-12 10:10] LABS: Ammonia 50 umol/L (11-32)
[2024-01-12 10:19] LABS: INR 1.08; Prothrombin Time 11.4 sec (9.0-11.6)
--- NOTE | 2024-01-12 11:33 | PT.DAILY ---
Physical Therapy Daily Note PT Daily Note/Assess Start: 01/12/24 11:25 Freq: Status: Active Protocol: Document 01/12/24 11:28 TEDDY (Rec: 01/12/24 11:33 TEDDY [id number]) Physical Therapy Daily Note/Assessment Time In/Time Out Time In 10:15 Time Out 10:25 Pain In Pain N/A Pain Out Pain N/A Subjective Subjective Pt sitting in BS chair upon arrival. Agrees to PT. Does want to get back to bed. Confused what is her phone and what's her call light- able to educate pt on what is what - verbalized understanding. Therapeutic Exercise Time Therapeutic Exercise Minutes (minutes) 5 Therapeutic Exercise Units 0 Therapeutic Exercise Treatment Therapeutic Exercise Treatment Bilat LE strengthening ex complete in BS chair 10x prior to transfer. Therapeutic Activity Time Therapeutic Activity Minutes (minutes) 5 Therapeutic Activity Units 1 Therapeutic Activity Treatment Bed Mobility Ability Moderate Assist Chair Transfer Ability Minimum Assist Therapeutic Activity Comments Sit>stand from BS chair to RW [place]. Pt amb 20' around bed with RW, CGA -vc to slow down to avoid pulling IV out. Pt requires ModA to advance LEs into bed. HOB elevated and call light within reach. Total Physical Therapy Time Total Therapy Minutes 10 Total Physical Therapy Units 1 Summary Daily Note Summary Cont to be impulsive with gait with cues needed to slow down . ModA to advance LEs into bed today.
[2024-01-12] MEDS: LACTULOSE 10 GM/15 ML (237ML) SOLUTION 20 GM PO ×2 (11:38→21:21)
--- NOTE | 2024-01-12 11:55 | CM.NOTE ---
Rounds made with Dr. Arango, no discharge for patient today. Ammonia level elevated. Continue PT and OT for strengthening.
--- NOTE | 2024-01-12 12:40 | P.PN_ITS ---
<Statement entered by Fawn Arango, - 01/13/24 09:49> This documentation has been reviewed and approved.I have also seen and assessed patient and agree to the above findings and plan of care. Progress Note: Subjective Subjective Interval history: 01/10/25 0840 The patient is sitting up in a bedside chair. She is alert and oriented x 3 but frequently confused and a poor historian. She denies any acute abdominal pain, nausea, chest pain, or shortness of breath. Nursing reports an acute episode late yesterday evening of unresponsiveness, hypoxia (86%), and cold sweats . Blood sugar was unremarkable. Additional workup was ordered at that time including a chest x-ray and CT of the head. Chest x-ray revealed small left pleural effusion and bibasilar opacities that could represent atelectasis, aspiration changes, and/or pneumonia. CT of the head was unremarkable with no acute intracranial abnormality. A repeat UA did reveal a UTI, however. The patient's transaminitis continues to worsen on AM labs. Hepatic workup yesterday was benign with unremarkable acute hepatitis panel and right upper quadrant US. We will add on an ammonia level this morning and treat with lactulose if indicated. We will also obtain a CT of the abdomen with contrast to further evaluate for liver pathology. At the time of my exam the patient's O2 sat was 94% on 1 L and she is afebrile. Nursing will attempt to wean off O2 supplementation. Based on clinical exam findings, lack of leukocytosis, and equivocal chest x-ray findings, we do not clinically suspect pneumonia at this time. Exam Constitutional Vital Signs, click to edit/add: Last Vital Signs Temp 98.0 F 01/12/24 11:43 Pulse 72 01/12/24 11:47 Resp 18 01/12/24 11:43 BP 124/71 01/12/24 11:43 Pulse Ox 93 L 01/12/24 11:56 O2 Del Method Room Air 01/12/24 11:56 O2 Flow Rate 2 01/12/24 08:30 Common normals: no apparent distress, oriented x3 and alert General appearance: cooperative Orientation/consciousness: Yes awake HENWY Common normals: normocephalic, head/scalp atraumatic and hearing grossly normal bilaterally Eye Common normals: PERRL, EOMs intact bilaterally, conjunctivae normal and no scleral icterus General eye: normal appearance of both eyes Chest Common normals: inspection of chest normal Chest: symmetrical chest wall rise Respiratory Common normals: normal respiratory effort, no use of accessory muscles and clear to auscultation bilaterally Effort & inspection: able to speak in complete sentences Cardio Common normals: regular rate, regular rhythm, S1 normal heart sound, S2 normal heart sound, no murmurs and peripheral pulses 2+ throughout GI Common normals: Normal to inspection, nondistended, normoactive bowel sounds present, soft to palpation, non-tender and no hepatosplenomegaly Bladder/kidney exam: bladder normal to palpation Extremity Common normals: normal to inspection and no calf tenderness General: no clubbing, no cyanosis and no edema Neuro Common normals: CN's II-XII intact bilaterally, moves all extremities, no focal motor deficits and no sensory deficits noted Psych Common normals: mental status grossly normal Progress Note: Objective Labs Labs: Short CBC 01/12/24 Range/Units 04:25 WBC 5.8 (4.0-11.0) 10^3/uL Hgb 11.4 L (12.0-16.0) g/dL Hct 36.3 (36.0-48.0) % Plt Count 199 (150-450) 10^3/uL BMP 01/12/24 04:25 Sodium 137 Potassium 3.9 Chloride 105 Carbon Dioxide 25.2 BUN 23.0 H Creatinine 1.24 H Glucose 108 H Calcium 8.2 L Liver Function 01/12/24 Range/Units 04:25 Total Bilirubin 0.6 (0.2-1.0) mg/dL AST 250 H (15-37) U/L ALT 216 H (14-59) U/L Alkaline Phosphatase 331 H (46-116) U/L Albumin 2.1 L (3.4-5.0) g/dL Urine 01/12/24 Range/Units 00:15 Urine Color Yellow (YELLOW) Urine Clarity Clear (CLEAR) Urine pH 5.5 (5.0-9.0) Ur Specific [place] 1.020 (1.005-1.025) Urine Protein Trace (NEG/TRACE) mg/dL Urine Glucose (UA) Negative (NEGATIVE) mg/dL Imaging Chest x-ray: Attestation: I have reviewed the pertinent imaging results. Radiologist's impression: IMPRESSION: 1. Small left pleural effusion with bibasilar opacities that could represent atelectasis, aspiration changes, and/or pneumonia. CT scan - head: Attestation: I have reviewed the pertinent imaging results. Radiologist's impression: IMPRESSION: 1. No acute intracranial abnormality. 2. Sinus disease. Please correlate for acute sinusitis. Progress Note: A&P Assessment and Plan (1) JOSE (acute kidney injury): Assessment and Plan: Acute * Improving * Likely 2/2 dehydration and/or UTI * Reduce NS IVF to 50/hr - Pt eating and drinking well * Continue to hold home lisinopril d/t renal toxicity * Consider TeleNephrology consult pending clinical course * CMP daily (2) UTI (urinary tract infection): Assessment and Plan: Acute * Repeat UA last night positive for UTI * Continue Rocephin as initiated overnight * UA C&S pending (3) Acute respiratory failure: Assessment and Plan: Acute * Unclear etiology * Differential includes MINISTERIO vs Pneumonia vs other * Low clinical suspicion of pneumonia in absence of fever, leukocytosis, adventitious LS on exam, equivocal CXR results * D/C Azithromycin * Resolving - nursing able to wean off O2 * Close monitoring for now * Consider broadening antibiotics or further work up pending clinical course (4) Dehydration with hyponatremia: Assessment and Plan: Acute * Resolving * Dehydration improved, hyponatremia resolved * 2/2 poor oral intake in setting of dementia * IVF as above * CMP daily (5) Transaminitis: Assessment and Plan: Acute * Unclear etiology - completely asymptomatic * Acute Hepatitis Panel 01/11/24 - negative * Pt afebrile and no indication of recent acute illness * US RUQ 01/11/24 - unremarkable * CT abdomen w/ contrast today to further assess for liver pathology * Consider MRCP pending clinical course * Pt is s/p cholecystectomy, but retained stone is possible * CMP daily (6) Hyperammonemia: Assessment and Plan: Acute * Ammonia level yesterday was borderline normal at 34 and was untreated * Repeat Ammonia level today was 50 * Initiate lactulose 20 mg TID * Repeat ammonia level in AM (7) Fall: Assessment and Plan: Acute * Unwitnessed fall, unclear etiology * Pt denies pain today * PT/OT consults for eval and treat * Plan placement at SNF for rehab at discharge (8) Hypertension: Assessment and Plan: Chronic * Holding home lisinopril d/t JOSE (9) Dementia: Assessment and Plan: Chronic * Continue home namenda, donepezil and mirtazepine Urinary Catheter Management Urinary Catheter Management Straight: Cath placed during this visit: yes Urethral indwelling: No Insertion date: 01/10/24 Insertion time: 19:45
--- NOTE | 2024-01-12 13:47 | SWNOTE1 ---
Updates sent to [facility], this included; physician notes, labs, vitals, PT/OT, med list, and nursing notes.
--- NOTE | 2024-01-12 15:54 | SWNOTE1 ---
DELLA spoke to another daughter in regards to dc plans. She was asking about the [facility]. SW explained to her that [facility] is not sure when they will have a skilled bed available. They had voiced to SW that they have some people appealing her discharge and not sure when or how long those will take. Daughter did ask if there is a chance she can go from [facility] to [facility]. DELLA explained that once pt is there they can speak to SW at [facility] and if [facility] have opening they can coordinate. She voiced understanding. Pt's daughter requested that SW call [facility] tomorrow to see if by chance they have an opening. DELLA in agreement and will contact [facility] tomorrow to check.
[2024-01-12] MEDS: MIRTAZAPINE 15 MG TABLET PO (21:21)
[2024-01-12] MEDS: DONEPEZIL HCL 10 MG TABLET PO (21:21)
[2024-01-13] VITALS (19 sets, daily range): BP systolic 127–164; BP diastolic 74–84; PULSE 46–87; TEMP 36.2–36.9; O2SAT 91–95
[2024-01-13] MEDS: CEFTRIAXONE 1,000 MG in 0.9 % SODIUM CHLORIDE 50 ML 100 MG IV (00:05)
[2024-01-13] MEDS: 0.9 % SODIUM CHLORIDE 1,000 ML 50 ML IV (04:59)
[2024-01-13 05:06] LABS: Basophils Absolute Auto 0.1 10^3/uL (0.0-0.1); Basophils Percent Auto 1.1 % (0.2-2.0); Eosinophils Percent Auto 0.2 % (0.9-7.0); Hematocrit 34.9 % (36.0-48.0); Hemoglobin 10.9 g/dL (12.0-16.0); Immature Granulocytes Abs Auto 0.03 10^3/uL (0.00-0.03); Immature Granulocytes Pct Auto 0.5 % (0.0-0.5); Lymphocytes Absolute Auto 4.5 10^3/uL (1.2-3.8); Lymphocytes Percent Auto 70.8 % (20.5-60.0); Mean Corpuscular HGB Conc 31.2 g/dL (29.9-35.2); Mean Corpuscular Hemoglobin 29.1 pg (26.7-34.0); Mean Corpuscular Volume 93.1 fL (81.0-99.0); Monocytes Absolute Auto 0.4 10^3/uL (0.3-0.8); Monocytes Percent Auto 6.6 % (1.7-12.0); Neutrophils Absolute Auto 1.3 10^3/uL (1.4-6.5); Neutrophils Percent Auto 20.8 % (43.0-75.0); Platelet Count 203 10^3/uL (150-450); Red Blood Count 3.75 10^6/uL (4.20-5.40); Red Cell Distribution Width 14.6 % (11.0-15.0); White Blood Count 6.4 10^3/uL (4.0-11.0)
[2024-01-13 05:27] LABS: Ammonia 38 umol/L (11-32)
[2024-01-13 05:29] LABS: Alanine Aminotransferase 205 U/L (14-59); Albumin Globulin Ratio 0.5; Albumin Level 1.8 g/dL (3.4-5.0); Alkaline Phosphatase 296 U/L (46-116); Aspartate Amino Transferase 200 U/L (15-37); BUN Creatinine Ratio 13.7; Bilirubin Total 0.5 mg/dL (0.2-1.0); Calcium 7.8 mg/dL (8.5-10.1); Chloride 110 mmol/L (98-107); Estimated GFR (African America 53 (>=60); Estimated GFR (Non-African Ame 44 (>=60); Globulin 3.8 g/dL; Glucose 99 mg/dL (74-106); Sodium 141 mmol/L (136-145); Total Protein 5.6 g/dL (6.4-8.2)
[2024-01-13] MEDS: LACTULOSE 10 GM/15 ML (237ML) SOLUTION 20 GM PO ×3 (06:07→21:36)
[2024-01-13] MEDS: MEMANTINE HCL 28 MG CAP XR PO (08:52)
[2024-01-13] MEDS: ASPIRIN 81 MG TABLET.DR PO (08:52)
[2024-01-13] MEDS: GUAIFENESIN 600 MG TAB.ER.12H PO ×2 (08:52→20:34)
[2024-01-13] MEDS: HEPARIN SODIUM (PORCINE) 5,000 UNIT/ML VIAL 5000 UNIT SUBQ ×2 (08:52→20:34)
--- NOTE | 2024-01-13 09:34 | SWNOTE1 ---
Pt does have HCPOA paperwork on file, Jumana is the POA and Cassia is alternate agent. SW did reach out to Rojelio at [facility] and they do have an open semi-private female bed. DELLA called Jumana, but she did not answer. DELLA called and spoke with Cassia and Cassia wants SW to send referral. DELLA let Cassia know that Jumana will have to give SW permission to send referral to [facility] since she is the POA. She voiced she thought they both were. SW let her know that Jumana is the POA and she was the alternate. She voiced understanding. Pt has times of confusion. DELLA then called Jumana again and she answered. She voiced she will come to hospital and talk to the patient about it, she is not sure pt will want to share a room. SW to speak with pt as well.
--- NOTE | 2024-01-13 09:54 | SWNOTE1 ---
SW did speak with pt, pt is alert to self and where she was at. Pt was aware she needed to go to rehab at discharge and wants to do the therapy. DELLA spoke with her about [facility] versus the [facility]. SW let her know at [facility] she would have her own room and at [facility] she would have to share a room to start. Pt voiced she is not sure about sharing a room and is thinking she will stick with [facility]. She voiced her daughter Jumana lives right by [facility] and it would be easier for her. DELLA let pt know that Jumana was on her way and SW will stop back when she is here.
--- NOTE | 2024-01-13 10:07 | SWNOTE1 ---
SW spoke with daughter Jumana and with pt. Pt voices she wants to go to [facility] since she will have a private room. SW let her and daughter know that [facility] is ready for her whenever she is medically stable. DELLA reviewed HCPOA with daughter and pt. Cassia is listed as a alternate, daughter feels she gave the ED different POA paperwork that does not have Cassia on it and has a grand-daughter on by name of Velia. The POA we have on chart is Jumana, then Cassia and then Velia. DELLA to check charts and paperwork scanned in to system. SW checked chart and there is no other POA paperwork. SW checked the system and there is no other POA paperwork. SW to check old system.
--- NOTE | 2024-01-13 10:57 | SWNOTE1 ---
DELLA not able to get in to old system. At this point the only [facility] paperwork on file is from 2021. DELLA let pt's daughter know and she will bring in the updated copy so we can scan it in.
--- NOTE | 2024-01-13 11:06 | PT.DAILY ---
Physical Therapy Daily Note PT Daily Note/Assess Start: 01/12/24 11:25 Freq: Status: Active Protocol: Document 01/13/24 10:53 TEDDY (Rec: 01/13/24 11:06 TEDDY [id number]) Physical Therapy Daily Note/Assessment Time In/Time Out Time In 10:00 Time Out 10:25 Pain In Pain N/A Pain Out Pain N/A Subjective Subjective Pt sitting in BS chair upon arrival. agrees to PT. Has company at this time. Therapeutic Exercise Time Therapeutic Exercise Minutes (minutes) 3 Therapeutic Exercise Units 0 Therapeutic Exercise Treatment Therapeutic Exercise Treatment seated bilat LE strengthening ex 10x ea to improve functional mobility prior to gait. Therapeutic Activity Time Therapeutic Activity Minutes (minutes) 10 Therapeutic Activity Units 1 Therapeutic Activity Treatment Chair Transfer Ability Standby Assistance Therapeutic Activity Comments 3x sit>stand performed from BS chair SBA. Pt then amb with RW 120' with CGA and assist for IV pole. Pt needs vc to slow down and to stay close to RW and to keep RW on ground with turns. Pt returned to BS chair upon completion with call light in reach and needs met. Total Physical Therapy Time Total Therapy Minutes 13 Total Physical Therapy Units 1 Summary Daily Note Summary Improved transfer and gait ability today. Slightly impulsive.
--- NOTE | 2024-01-13 12:13 | CM.NOTE ---
Rounds made with Dr. Arango, no discharge today. Dr. Arango discussed possible discharge tomorrow based on lab improvement. Pt will discharge to [facility].
--- NOTE | 2024-01-13 13:08 | P.PN_ITS ---
<Statement entered by Fawn Arango, - 01/13/24 15:25> This documentation has been reviewed and approved.I have also seen and evaluated patient agree with the above assessments and plan of care. Agree with outpatient liver work up by GI or corporate safety manager, serial CMP at nursing facility to see if lactulose still warranted in 1 week. Progress Note: Subjective Subjective Interval history: 01/13/24 0855 The patient is sitting up in a bedside chair. She is alert and oriented x 3 but is still confused and a poor historian. She continues to deny any acute abdominal pain, nausea, chest pain, or shortness of breath. She remains stable on RA without evidence of URI/cough/Dyspnea. Her transaminitis began trending down on AM labs today. Her ammonia level was elevated yesterday (50) and she was initiated on TID Lactulose dosing. She is having 2-3 bowel movements daily and her ammonia level is also drifting down today (38). A CT of the abdomen with contrast was obtained yesterday and was unremarkable. The pt denies any history of EtOH use and cirrhosis was not noted on CT imaging. Again - she remains asymptomatic of any liver disease. Exam Constitutional Vital Signs, click to edit/add: Last Vital Signs Temp 98.5 F 01/13/24 11:36 Pulse 82 01/13/24 11:54 Resp 18 01/13/24 11:36 BP 127/74 01/13/24 11:36 Pulse Ox 95 01/13/24 12:10 O2 Del Method Room Air 01/13/24 12:10 O2 Flow Rate 2 01/12/24 08:30 Common normals: no apparent distress, oriented x3 and alert General appearance: cooperative Orientation/consciousness: Yes awake HENWA Common normals: normocephalic, head/scalp atraumatic and hearing grossly normal bilaterally Eye Common normals: PERRL, EOMs intact bilaterally, conjunctivae normal and no scleral icterus General eye: normal appearance of both eyes Chest Common normals: inspection of chest normal Chest: symmetrical chest wall rise Respiratory Common normals: normal respiratory effort, no use of accessory muscles and clear to auscultation bilaterally Effort & inspection: able to speak in complete sentences Cardio Common normals: regular rate, regular rhythm, S1 normal heart sound, S2 normal heart sound, no murmurs and peripheral pulses 2+ throughout GI Common normals: Normal to inspection, nondistended, normoactive bowel sounds present, soft to palpation, non-tender and no hepatosplenomegaly Bladder/kidney exam: bladder normal to palpation Extremity Common normals: normal to inspection and no calf tenderness General: no clubbing, no cyanosis and no edema Neuro Common normals: CN's II-XII intact bilaterally, moves all extremities, no focal motor deficits and no sensory deficits noted Psych Thought process: confused (w/ poor short term memory at times. A&O x 3) Thought content: normal thought content Attention/concentration: attention grossly intact Memory/cognition: cognition grossly intact Progress Note: Objective Labs Labs: Short CBC 01/13/24 Range/Units 04:59 WBC 6.4 (4.0-11.0) 10^3/uL Hgb 10.9 L (12.0-16.0) g/dL Hct 34.9 L (36.0-48.0) % Plt Count 203 (150-450) 10^3/uL BMP 01/13/24 04:59 Sodium 141 Potassium 4.0 Chloride 110 H Carbon Dioxide 24.0 BUN 16.0 Creatinine 1.17 H Glucose 99 Calcium 7.8 L Liver Function 01/13/24 Range/Units 04:59 Total Bilirubin 0.5 (0.2-1.0) mg/dL AST 200 H (15-37) U/L ALT 205 H (14-59) U/L Alkaline Phosphatase 296 H (46-116) U/L Albumin 1.8 L (3.4-5.0) g/dL Imaging CT scan - abdomen: Attestation: I have reviewed the pertinent imaging results. Radiologist's impression: IMPRESSION: 1. Normal CT appearance of the liver. 2. Small right, tiny left pleural effusions with mild atelectasis or infiltrates within lung bases. 3. Stable pseudocyst within tail of pancreas. No suspicious findings. 4. Trace amount of free fluid within right paracolic gutter, possibly secondary to the pleural fluid. No convincing acute inflammatory changes of the ascending colon. Correlate for clinical symptoms. Progress Note: A&P Assessment and Plan (1) Transaminitis: Assessment and Plan: Acute Laboratory Tests 01/11/24 01/12/24 01/13/24 04:55 04:25 04:59 AST 151 H 250 H 200 H ALT 189 H 216 H 205 H Alkaline Phosphatase 340 H 331 H 296 H * Unclear etiology - remains completely asymptomatic * Acute Hepatitis Panel 01/11/24 - negative * Pt afebrile and no indication of recent acute illness * US RUQ 01/11/24 - unremarkable * CT abdomen w/ contrast 01/12/24 - Unremarkable. * Consider MRCP pending clinical course * Pt is s/p cholecystectomy, but retained stone is possible * No abdominal pain or N/V/D * If continues downward trend, likely d/c in 24-48 hrs and follow up with GI as outpatient * CMP daily (2) Hyperammonemia: Assessment and Plan: Acute Laboratory Tests 01/11/24 01/12/24 01/13/24 11:18 09:52 04:59 Ammonia 34 H 50 H* 38 H * 2/2 liver dysfunction of unknown etiology * No significant hepatic encephalopathy - possible mild encephalopathy on admission vs baseline dementia, but appears at her baseline today per family * Trending down * Continue lactulose 20 mg TID * Likely D/C on Lactulose BID dosing * Repeat ammonia level in AM (3) JOSE (acute kidney injury): Assessment and Plan: Acute * Resolved * CMP daily to continue monitoring (4) UTI (urinary tract infection): Assessment and Plan: Acute * Ruled out * Urine culture resulted mixed genital mirna, no pathogens seen * D/C antibiotics (5) Acute respiratory failure: Assessment and Plan: Acute * Resolved * stable on RA x 36 hrs * Continue very gentle IVF to avoid fluid overload * Low clinical suspicion of pneumonia in absence of fever, leukocytosis, adventitious LS on exam, equivocal CXR results (6) Dehydration with hyponatremia: Assessment and Plan: Acute * Resolved * CMP daily to monitor (7) Fall: Assessment and Plan: Acute * Unwitnessed fall, unclear etiology * Pt continues to deny pain today * PT/OT consults for eval and treat * Plan placement at SNF for rehab at discharge (8) Hypertension: Assessment and Plan: Chronic * Holding home lisinopril d/t JOSE to date * Plan to resume in AM (9) Dementia: Assessment and Plan: Chronic * Continue home namenda, donepezil and mirtazepine Urinary Catheter Management Urinary Catheter Management Straight: Cath placed during this visit: yes Urethral indwelling: No Insertion date: 01/10/24 Insertion time: 19:45
--- NOTE | 2024-01-13 13:12 | SWNOTE1 ---
SW spoke to pt's daughter Reji about transportation over the weekend to SNF. Pt's daughter is alright with transporting pt over to [facility] over the weekend. SW notified nursing. HENS is complete. SW took patient's packet out to med/surge floor for weekend.
[2024-01-13] MEDS: DONEPEZIL HCL 10 MG TABLET PO (21:37)
[2024-01-13] MEDS: MIRTAZAPINE 15 MG TABLET PO (21:37)
[2024-01-14] VITALS (10 sets, daily range): BP systolic 146–186; BP diastolic 77–93; PULSE 77–95; TEMP 36.6–37; O2SAT 91–94
[2024-01-14] MEDS: 0.9 % SODIUM CHLORIDE 1,000 ML 50 ML IV (01:51)
[2024-01-14] MEDS: HYDRALAZINE HCL 20 MG/ML VIAL 10 MG IVP (04:37)
[2024-01-14 04:39] LABS: Basophils Absolute Auto 0.1 10^3/uL (0.0-0.1); Eosinophils Percent Auto 0.2 % (0.9-7.0); Hematocrit 34.7 % (36.0-48.0); Hemoglobin 11.2 g/dL (12.0-16.0); Immature Granulocytes Abs Auto 0.03 10^3/uL (0.00-0.03); Immature Granulocytes Pct Auto 0.6 % (0.0-0.5); Lymphocytes Absolute Auto 3.5 10^3/uL (1.2-3.8); Lymphocytes Percent Auto 67.1 % (20.5-60.0); Mean Corpuscular HGB Conc 32.3 g/dL (29.9-35.2); Mean Corpuscular Hemoglobin 29.7 pg (26.7-34.0); Mean Platelet Volume 9.1 fL (9.5-13.5); Monocytes Absolute Auto 0.3 10^3/uL (0.3-0.8); Monocytes Percent Auto 5.9 % (1.7-12.0); Neutrophils Absolute Auto 1.3 10^3/uL (1.4-6.5); Neutrophils Percent Auto 25.2 % (43.0-75.0); Platelet Count 202 10^3/uL (150-450); Red Blood Count 3.77 10^6/uL (4.20-5.40); Red Cell Distribution Width 14.6 % (11.0-15.0); White Blood Count 5.2 10^3/uL (4.0-11.0)
[2024-01-14 05:00] LABS: Ammonia 27 umol/L (11-32)
[2024-01-14 05:03] LABS: Alanine Aminotransferase 238 U/L (14-59); Albumin Globulin Ratio 0.5; Albumin Level 1.9 g/dL (3.4-5.0); Alkaline Phosphatase 354 U/L (46-116); Anion Gap 12.4; Aspartate Amino Transferase 243 U/L (15-37); BUN Creatinine Ratio 10.2; Bilirubin Total 0.5 mg/dL (0.2-1.0); Calcium 7.9 mg/dL (8.5-10.1); Carbon Dioxide 24.2 mmol/L (21.0-32.0); Chloride 109 mmol/L (98-107); Estimated GFR (African America 58 (>=60); Estimated GFR (Non-African Ame 48 (>=60); Globulin 3.8 g/dL; Glucose 112 mg/dL (74-106); Potassium 3.6 mmol/L (3.5-5.1); Sodium 142 mmol/L (136-145); Total Protein 5.7 g/dL (6.4-8.2)
[2024-01-14] MEDS: HEPARIN SODIUM (PORCINE) 5,000 UNIT/ML VIAL 5000 UNIT SUBQ (08:35)
[2024-01-14] MEDS: MEMANTINE HCL 28 MG CAP XR PO (08:35)
[2024-01-14] MEDS: LISINOPRIL 20 MG TABLET PO (08:35)
[2024-01-14] MEDS: ASPIRIN 81 MG TABLET.DR PO (08:35)
[2024-01-14] MEDS: GUAIFENESIN 600 MG TAB.ER.12H PO (08:35)
--- NOTE | 2024-01-14 09:39 | P.DS_ITS ---
DS: Providers Provider Date of admission: 01/11/24 10:56 Primary care physician: Moustapha Avina DO Consults: 01/10/24 21:35 Occupational Therapy Eval and Treat Routine Reason for consultation: weakness Has provider been notified: No Physical Therapy Eval and Treat Routine Reason for consultation: weakness Has provider been notified: No 01/14/24 07:42 Consult to Pharmacy Routine Consulting Provider: Reason for consultation: meds that affect liver function review - please- tiger me? Has provider been notified: No DS: Diagnosis Discharge Diagnosis (1) Transaminitis: (2) Hyperammonemia: (3) JSOE (acute kidney injury): (4) UTI (urinary tract infection): (5) Acute respiratory failure: (6) Dehydration with hyponatremia: (7) Fall: (8) Hypertension: (9) Dementia: Plan (1) Transaminitis: Unclear etiology - * (2) Hyperammonemia: Improving (3) JOSE (acute kidney injury): * (4) UTI (urinary tract infection): Symptoms resolved (5) Acute respiratory failure: (6) Dehydration with hyponatremia: * (7) Fall: (8) Hypertension: (9) Dementia: (10) Severe PCM - supplement (11) Anemia - iron def -0 supplement DS: Summary Hospital Course Hospital Course: Patient was admitted status post fall. Acute kidney injury and acute respiratory failure based on previous progress notes. All of those are improving except for her elevated liver function tests are persisting. Her hyperammonemia is better with the treatment. Liver function test are slightly elevated today upon medication review could be related to the heparin and the Remeron both. Those were discontinued at the time of discharge. Patient needs to have continued monitoring for her elevated liver function test. Consider GI consultation. Patient currently medically stable and okay for discharge to [facility] for continued therapy, care and monitoring. Medications see list. Time Spent with Patient Time attestation: Total time spent providing and/or coordinating discharge services: Exam Constitutional Vital Signs, click to edit/add: Last Vital Signs Temp 98.3 F 01/14/24 08:00 Pulse 83 01/14/24 08:00 Resp 20 01/14/24 08:00 BP 146/77 H 01/14/24 08:00 Pulse Ox 91 L 01/14/24 08:00 O2 Del Method Room Air 01/14/24 08:00 O2 Flow Rate 2 01/12/24 08:30 Documenting provider has reviewed patient's vital signs: yes Common normals: no apparent distress Chest Common normals: inspection of chest normal Respiratory Common normals: normal respiratory effort and no retractions Cardio Common normals: regular rate and regular rhythm GI Common normals: Normal to inspection, nondistended, normoactive bowel sounds present, soft to palpation and non-tender Common normals: no CVA tenderness and external appearance normal Neuro Common normals: oriented x3, CN's II-XII intact bilaterally and moves all extremities DS: Data Data Completed and Pending Labs on day of discharge: Labs from last 24 hours 01/14/24 01/13/24 04:23 04:59 WBC 5.2 RBC 3.77 L Hgb 11.2 L Hct 34.7 L MCV 92.0 MCH 29.7 MCHC 32.3 RDW 14.6 Plt Count 202 MPV 9.1 L Neut % (Auto) 25.2 L Lymph % (Auto) 67.1 H [place] % (Auto) 5.9 Eos % (Auto) 0.2 L Baso % (Auto) 1.0 Neut # (Auto) 1.3 L Lymph # (Auto) 3.5 [place] # (Auto) 0.3 Eos # (Auto) 0.0 Baso # (Auto) 0.1 Abs Immat Gran (auto) 0.03 Imm/Tot Granulo (auto) 0.6 H Sodium 142 Potassium 3.6 Chloride 109 H Carbon Dioxide 24.2 Anion Gap 12.4 BUN 11.0 Creatinine 1.08 H Est GFR ( Amer) 58 L Est GFR (Non-Af Amer) 48 L BUN/Creatinine Ratio 10.2 Glucose 112 H Calcium 7.9 L Total Bilirubin 0.5 AST 243 H ALT 238 H Alkaline Phosphatase 354 H Ammonia 27 Total Protein 5.7 L Albumin 1.9 L Globulin 3.8 Albumin/Globulin Ratio 0.5 Lipase 46.0 Preliminary micro results at discharge 01/12/24 00:47 - Preliminary Blood NO GROWTH AT 36-48 HOURS. FINAL TO FOLLOW. 01/12/24 00:41 Blood Culture Result 1 - Preliminary Blood NO GROWTH AT 36-48 HOURS. FINAL TO FOLLOW. Discharge Plan Discharge Disposition: Xfer SNF Condition: Good Discharge Medications: New lactulose 20 gram/30 mL solution 20 g PO BID Qty: 1800 0RF lisinopril 20 mg Tablet 20 mg PO QD Qty: 30 11RF Continued donepezil 10 mg tablet 10 mg PO BEDTIME lisinopril 10 mg tablet 10 mg PO DAILY memantine 10 mg tablet 10 mg PO BID aspirin [Adult Aspirin Regimen] 81 mg tablet,delayed release (DR/EC) 81 mg PO DAILY Discontinued mirtazapine 15 mg tablet,disintegrating 15 mg PO BEDTIME Print Language: Albanian Activity Restrictions/Additional Instructions: - CMP weekly x 3 weeks to monitor hepatic function - Ammonia level weekly x 3 weeks to monitor hyperammonemia - Obtain referral to GI/Hepatology regarding transaminitis of unclear etiology Student Counsellor/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
--- NOTE | 2024-01-14 09:46 | PC.NURSE ---
Angelia at [facility] called report at this time.
--- NOTE | 2024-01-14 10:29 | PT.DAILY ---
Physical Therapy Daily Note PT Daily Note/Assess Start: 01/12/24 11:25 Freq: Status: Active Protocol: Document 01/14/24 09:05 [facility] (Rec: 01/14/24 10:28 [facility] [id number]) Physical Therapy Daily Note/Assessment Time In/Time Out Time In 09:05 Time Out 09:22 Subjective Subjective Denies pain. Patient is mildly confused, thinks she is a rehab facility already, was able to redirect her back to she was at hospital. Reports stomach is tender. Therapeutic Exercise Time Therapeutic Exercise Minutes (minutes) 7 Therapeutic Exercise Units 0 Therapeutic Exercise Treatment Therapeutic Exercise Treatment Seated exercises B LE 10 reps each plane to promote strength . Utilized AROM, isometrics and MRE exercises as appropriate. Therapeutic Activity Time Therapeutic Activity Minutes (minutes) 10 Therapeutic Activity Units 1 Therapeutic Activity Treatment Bed Mobility Ability Standby Assistance Chair Transfer Ability Contact Guard Assist Therapeutic Activity Comments Supine to sit SBA. Sit to stand at RW CGA with patient impulsive and decreased safety awareness, verbal cues for patient to slow task down and push up from bed vs grabbing RW. Gait 130' with RW CGA and IV assist. Again patient unsafe with RW pushing it too far fwd. Verbal cues to slow neil and patient corrects improving safety. Total Physical Therapy Time Total Therapy Minutes 17 Total Physical Therapy Units 1 Summary Daily Note Summary Improved ability with transfers and gait, but patient continues to demonstrate decreased safety awareness, and weakness causing increased risk for falls. Recommend [facility] to work on regaining strength and working on safety awareness to minimize these risks.
== END 2024-01-14 11:28 | DRG 947 ==
LOC: ER 21:24 → MS 22:00
PROVIDERS: Family Medicine; Nurse Practitioner Acute Care; Admitting Provider Nurse Practitioner; Emergency Provider Emergency Medicine; PCP Internal Medicine; Visit Provider Nurse Practitioner
DX: R74.01 Elevation of levels of liver transaminase levels (principal); E43 Unspecified severe protein-calorie malnutrition; J96.01 Acute respiratory failure with hypoxia; N17.9 Acute kidney failure, unspecified; E87.1 Hypo-osmolality and hyponatremia; E72.20 Disorder of urea cycle metabolism, unspecified; E86.0 Dehydration; D50.9 Iron deficiency anemia, unspecified; F03.90 Unspecified dementia, unspecified severity, without behavioral disturbance, psychotic disturbance, mood disturbance, and anxiety; I12.9 Hypertensive chronic kidney disease with stage 1 through stage 4 chronic kidney disease, or unspecified chronic kidney disease; N18.31 Chronic kidney disease, stage 3a; R29.6 Repeated falls; Z68.22 Body mass index [BMI] 22.0-22.9, adult; Z91.81 History of falling; Z79.82 Long term (current) use of aspirin; Z79.899 Other long term (current) drug therapy; Z90.49 Acquired absence of other specified parts of digestive tract; Z96.642 Presence of left artificial hip joint; W01.0XXA Fall on same level from slipping, tripping and stumbling without subsequent striking against object, initial encounter; Y92.018 Other place in single-family (private) house as the place of occurrence of the external cause
CPT/HCPCS: 36415; 51798; 70450; 71045; 72100; 74160; 76705; 80048; 80053; 80074; 81001; 82140; 83690; 85007; 85025; 85027; 85610; 85730; 87040; 87070; 87086; 93005; 94667; 94668; 94761; 96361; 96365; 96366; 96368; 96372; 96375; 97161; 97165; 97530; 97535; 99285; G0378; J0456; Q9967

== ENCOUNTER 2024-01-16 05:38 | Outpatient (REF) | payer MEDICARE, SELFPAY ==
--- OUTSIDE RECORDS SUMMARY | 2024-01-16 05:42 | XMS_ITS | CCD ---
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 Name Role Phone Moustapha Avina Primary Care Unavailable Daniel Domínguez Attending Unavailable Daniel Domínguez Admitting Unavailable Moustapha Avina Unavailable Unavailable Unavailable MOUSTAPHA AVINA Primary Care Physician [phone] Christel Ghotra Unavailable Unavailable Chasity Yuan Unavailable [...] Unavailable CHANA, YESICA Consulting Unavailable DANIELA, DR JCAINTO Admitting Unavailable DANIELA, DR JACINTO Attending Unavailable [...] or physicia Propensity to adverse reactions Comment:Done [employer] Other (1 source) No Known Medication Allergies; Translations: [No Known Medication Allergies] Propensity to adverse reactions (disorder) [facility] Repository Medications Current Medications Medication [...] 1 month, then 2x/week there after, [facility]/pharmacy #[id number], 158, cm, 09/22/22 8:59:00 EST, Height/Length Dosing, [...] hydrochloride 5 mg oral tablet (14 sources) V-ziryae-Q-aspartate Receptor Antagonist Start: 09-22-2022 memantine 5 mg [...] 2 Episodic Other aftercare (1 source) Other long term acute care registered nurse (current) drug therapy; Translations: [OTH ALF CURRENT DRUG THERAPY] Onset: 2 Episodic Other aftercare (1 source) long term acute care registered nurse (current) use of anticoagulants; Translations: [ALF CURRNT USE ANTICOAGULANTS] Onset: 2 Episodic Other [...] HARRY, KEIKO Beth Where: [facility] Patient Educationon 11-22-19 Patient Education Gastroenterology [...] as fried or sweet foods. These include mohawk fries, hamburgers, cookies, candies, and soda. ? Drink enough fluid to keep your urine pale yellow. General instructions ? Exercise regularly or as told by your health care provider. Try to do 150 minutes of moderate exercise each week. ? Use the bathroom when you have the urge to go. Do not hold it in. ? Take zgiq-pwl-qnhwxek and prescription medicines only as told by [...] keep your urine pale yellow. ? Take cmzf-lfv-feugybh and prescription medicines only as told by your health care provider. This includes any fiber supplements. This information is not intended to replace advice given to you by your health care provider. Make sure you discuss any questions you have with your health care provider. Document Revised: 07/23/2020 Document Reviewed: 07/23/2020 [employer] Patient Education ? 2022 [employer]. [facility] Urology Office/Clinic Noteon 11-22-2023 Urology [...] pt to restart. DEIDRE scheduled 11/18/23 @ [facility] pt. 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 Take znxs-nvr-afczogy and prescription medicines only as told by [...] provider. Document Revised: 04/17/2021 Document Reviewed: 04/17/2021 [employer] Patient Education ? 2022 [employer]. Obstetrics and Gynecology Urinary Tract Infection, Adult [...] h (more content not included)... Normal [facility] Urology Office/Clinic Noteon 05-04-2023 Urology Office/Clinic Note Chief Complaint uti symptoms? [facility] Staff 87 year old female [...] pharm on file. -Advised pt to contact CREDIT COLLECTOR or soldering machine operator automatic regarding skin irritation. -Again discussed importance of [...] reviewing tests in (more content not included)... [facility] Comment on above: Result Comment: Elec tronically Signed By: Cassidy Parks MD\.br\Date and Time Signed: 05/04/23 18:22 EDT\.br\Electronically Co-Signed By: Xuan Mortensen\.br\Date and Time Co-Signed: 05/04/23 11:43 EDT Consultation Noteon 12-11-19 Consultation Note [id number]#1. 00CD:127 [facility] Ambulatory Visit Summaryon 0 11-24-2022 Ambulatory Visit Summary RADHA SHAYNA J :1935 Visit Date:11/24/2022 Ambulatory Visit Instructions Your Diagnosis Recurrent UTI Tests Performed Urnls Dip Stick Auto w/o Microscopy POC 26112 Your Care Team Attending Physician - KEIKO [...] KEIKO ROCK PA-C Where: [facility] Patient Educationon 11-25-19 Patient Education [...] are. Treatment may include: ? Using an gunb-ycy-etfoqwb vaginal lubricant before sex. ? Using a [...] these instructions at home: Medicines ? Take elwq-ybi-mmsvpcy and prescription medicines only as told by your health care provider. Do not use herbal or alternative medicines unless your health care provider says that you can. ? Use wsio-jiv-aqfnyuo creams, lubricants, or moisturizers for dryness only [...] 01/20/2016 Document Revised: 08/18/2018 Document Reviewed: 06/01/2018 [employer] Patient Education ? 2020 [employer]. Normal [facility] Urology Office/Clinic Noteon 11-24-2022 Urology [...] E&M of Est. Patient Moderate 30-39 Min 87564 E&M of Est. Patient Moderate 30-39 Min 71264 2. Recurrent UTI (N39.0: Urinary tract infection, site not specified) No UTIs since last visit. Has been using estrogen cream 2x per week as instructed. CT 10/15/22 showed no renal calculus. Ordered: E&M of Est. Patient Moderate 30-39 Min 13341 E&M of Est. Patient Moderate 30-39 Min 31871 Urnls Dip Stick Auto w/o Microscopy POC 18490 3. 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 States dysuria/urethral pain has completely resolved. Very pleased. Ordered: E&M of Est. Patient Moderate 30-39 Min 25450 E&M of Est. Patient Moderate 30-39 Min 74125 4. Contact dermatitis (L25.9: Unspecified contact dermatitis, [...] E&M of Est. Patient Moderate 30-39 Min 59735 E&M of Est. Patient Moderate 30-39 Min 75117 f/u 1 yr w DEIDRE prior. sooner [...] Glu (more content not included)... Normal [facility] Comment on above: Result Comment: Elec [...] YESICA ZAYAS Date: 2022-10-15 09:34 Normal [facility] CREATININEon 06-08-2022 Creatinine [Mass/Vol] 1.22 mg/dL Critically high 0.55-1.02 [facility] Comment on above: Performed By: #### C BRITTANI ####[facility] [address] [place], [place] [address]Cl. Errol Flannery EGFR-AF NAMIBIAN 51 mL/min/1.73m2 Critically low >=60 [facility] Comment on above: Performed By: #### C BRITTANI ####[facility] [address] [place], [place] [address]Jb. Errol Flannery EGFR-NON AF NAMIBIAN 42 mL/min/1.73m2 Critically low >=60 [facility] Comment on above: Performed By: #### C BRITTANI ####[facility] [address] [place], [place] [address]By. Errol Flannery CTA CHEST WO W CONon [...] ALEXANDER DUMONT Date: 2022-06-08 10:18 Normal [facility] CARDIAC ZECHARIAH 3-6on 2 CK [Catalytic activity/Vol] 35 U/L Normal 26-192 [facility] Comment on above: Performed By: #### L ACT #### [facility] [address] [address] [address] Errol Flannery CK.MB [Mass/Vol] 1.42 ng/mL Normal <=3.60 [facility] Comment on above: Performed By: #### L ACT #### [facility] [address] [address] [address] Errol Flannery HSTROP 6.4 pg/mL Normal 4.0-51.3 [facility] Comment on above: Result Comment: CUT- OFF POINTS HAVE BEEN ESTABLISHED BASED ON THE FOURTH UNIVERSAL DEFINITIONS OF MYOCARDIAL INFARCTION. THE UPPER REFERENCE LIMIT (URL) OF TROPONIN, DEFINED THE 99TH PERCENTILE OF cTnI DISTRIBUTION IN A REFERENCE POPULATION, HAS BEEN CONFIRMED THE DECISION THRESHOLD FOR [place] DIAGNOSIS. Performed By: #### L ACT #### [facility] [address] [address] [address] Errol Flannery CARDIAC ZECHARIAH ADMITon 022 CK [Catalytic activity/Vol] 41 U/L Normal 26-192 [facility] Comment on above: Performed By: #### C ALICIA, BMP ####[facility] [address] [place] [id number]. Errol Flannery CK.MB [Mass/Vol] 1.36 ng/mL Normal <=3.60 [facility] Comment on above: Performed By: #### C ALICIA, BMP ####[facility] [address] [place] [id number]. Errol Flannery HSTROP 5.8 pg/mL Normal 4.0-51.3 [facility] Comment on above: Result Comment: CUT- OFF POINTS HAVE BEEN ESTABLISHED BASED ON THE FOURTH UNIVERSAL DEFINITIONS OF MYOCARDIAL INFARCTION. THE UPPER REFERENCE LIMIT (URL) OF TROPONIN, DEFINED THE 99TH PERCENTILE OF cTnI DISTRIBUTION IN A REFERENCE POPULATION, HAS BEEN CONFIRMED THE DECISION THRESHOLD FOR [place] DIAGNOSIS. Performed By: #### C BEV VARGAS ####[facility] [address] [place] [id number]. Errol Flannery RICHELLE 65 ng/mL Normal 9-82 [facility] Comment on above: Performed By: #### C ALICIA, BEV ####[facility] [address] [place] [id number]. Errol Flannery CBC AUTO DIFFon 04-29-2022 BASO # 0.0 103/ul Normal 0.0-0.1 [facility] Comment on above: Performed By: #### L ACT #### [facility] [address] [address] [address] Errol Flannery Basophils/100 WBC (Bld) 0.2 % Normal 0.2-2.0 [facility] Comment on above: Performed By: #### L ACT #### [facility] [address] [address] [address] Errol Flannery EO # 0.0 103/ul Normal 0.0-0.7 [facility] Comment on above: Performed By: #### L ACT #### [facility] [address] [address] [address] Errol Flannery Eosinophils/100 WBC (Bld) 0.1 % Critically low 0.9-7.0 [facility] Comment on above: Performed By: #### L ACT #### [facility] [address] [address] [address] Errol Flannery Erythrocyte distribution width (RBC) [Ratio] 13.9 % Normal 11.0-15.0 [facility] Comment on above: Performed By: #### L ACT #### [facility] [address] [address] [address] Errol Flannery Hematocrit (Bld) [Volume fraction] 40.9 % Normal 36.0-48.0 [facility] Comment on above: Performed By: #### L ACT #### [facility] [address] [address] [address] Errol Flannery Hemoglobin (Bld) [Mass/Vol] 13.3 g/dL Normal 12.0-16.0 [facility] Comment on above: Performed By: #### L ACT #### [facility] [address] [address] [address] Errol Flannery IG # 0.02 10e3/ul Normal 0.00-0.03 [facility] Comment on above: Performed By: #### L ACT #### [facility] [address] [address] [address] Errol Flannery IG % 0.2 % Normal 0.0-0.5 [facility] Comment on above: Performed By: #### L ACT #### [facility] [address] [place] [address] Dr. Errol Flannery LYMPH # 0.9 103/ul Critically low 1.2-3.8 The [facility] Comment on above: Performed By: #### L ACT #### [facility] [address] [place] [address] Dr. Errol Flannery Lymphocytes/100 WBC (Bld) 9.2 % Critically low 20.5-60.0 [facility] Comment on above: Performed By: #### L ACT #### [facility] [address] [place] [address] Dr. Errol Flannery MANUAL DIFF REQ NO Normal [facility] Comment on above: Performed By: #### L ACT #### [facility] [address] [address] [address] Errol Flannery MCH (RBC) [Entitic mass] 30.6 pg Normal 26.7-34.0 [facility] Comment on above: Performed By: #### L ACT #### [facility] [address] [place] [address] Dr. Errol Flannery MCHC (RBC) [Mass/Vol] 32.5 g/dL Normal 29.9-35.2 [facility] Comment on above: Performed By: #### L ACT #### [facility] [address] [address] [address] Errol Flannery MCV (RBC) [Entitic vol] 94.0 fL Normal 81.0-99.0 [facility] Comment on above: Performed By: #### L ACT #### [facility] [address] [place] [address] Dr. Errol Flannery MONO # 0.6 103/ul Normal 0.3-0.8 [facility] Comment on above: Performed By: #### L ACT #### [facility] [address] [address] [address] Errol Flannery Monocytes/100 WBC (Bld) 6.8 % Normal 1.7-12.0 [facility] Comment on above: Performed By: #### L ACT #### [facility] [address] [place] [address] Dr. Errol Flannery NEUT # 7.9 103/ul Critically high 1.4-6.5 [facility] Comment on above: Performed By: #### L ACT #### [facility] [address] [place] [address] Dr. Errol Flannery Neutrophils/100 WBC (Bld) 83.5 % Critically high 43.0-75.0 [facility] Comment on above: Performed By: #### L ACT #### [facility] [address] [place] [address] Dr. Errol Flannery Platelet mean volume (Bld) [Entitic vol] 9.5 fL Normal 9.5-13.5 [facility] Comment on above: Performed By: #### L ACT #### [facility] [address] [place] [address] Dr. Errol Flannery PLT 244 103/ul Normal 150-450 [facility] Comment on above: Performed By: #### L ACT #### [facility] [address] [place] [address] Dr. Errol Flannery RBC 4.35 106/ul Normal 4.20-5.40 [facility] Comment on above: Performed By: #### L ACT #### [facility] [address] [place] [address] Dr. Errol Flannery WBC 9.4 103/ul Normal 4.0-11.0 [facility] Comment on above: Performed By: #### L ACT #### [facility] [address] [place] [address] Dr. Errol Flannery ER URINE PROFILEon 2 Bilirubin Ql (U) Negative Normal NEGATIVE [facility] Comment on above: Performed By: #### L ACT #### [facility] [address] [place] [address] Dr. Errol Flannery Clarity (U) CLEAR Normal CLEAR [facility] Comment on above: Performed By: #### L ACT #### [facility] [address] [place] [address] Dr. Errol Flannery Color (U) LT. YELLOW Normal YELLOW [facility] Comment on above: Performed By: #### L ACT #### [facility] [address] [place] [address] Dr. Errol SHAFFERAHRaymond A micrscopic examination will be performed if indicated. Normal [facility] Comment on above: Performed By: #### L ACT #### [facility] [address] [place] [address] Dr. Errol Flannery Glucose Ql (U) Negative Normal NEGATIVE [facility] Comment on above: Performed By: #### L ACT #### [facility] [address] [place] [address] Dr. Errol Flannery Hemoglobin Ql (U) Negative Normal NEGATIVE [facility] Comment on above: Performed By: #### L ACT #### [facility] [address] [place] [address] Dr. Errol Flannery Ketones Ql (U) TRACE Abnormal NEGATIVE [facility] Comment on above: Performed By: #### L ACT #### [facility] [address] [place] [address] Dr. Errol Flannery LEUKOCYTES MODERATE Abnormal NEGATIVE [facility] Comment on above: Performed By: #### L ACT #### [facility] [address] [place] [address] Dr. Errol Flannery Nitrite Ql (U) Negative Normal NEGATIVE [facility] Comment on above: Performed By: #### L ACT #### [facility] [address] [address] [address] Errol Flannery pH (U) 6.5 [pH] Normal 5-9 [facility] Comment on above: Performed By: #### L ACT #### [facility] [address] [address] [address] Errol Flannery SPEC GRAVITY 1.010 Normal 1.005-<=1.025 [facility] Comment on above: Performed By: #### L ACT #### [facility] [address] [address] [address] Errol Flannery UA PROTEIN Negative Normal NEGATIVE/ TRACE [facility] Comment on above: Performed By: #### L ACT #### [facility] [address] [place] [address] Dr. Errol Flannery UR MICRO IND INDICATED Normal [facility] Comment on above: Performed By: #### L ACT #### [facility] [address] [address] [address] Errol Flannery Urobilinogen Qn (U) 0.2 {Jordyn'U}/dL Normal 0.2 - 1. 0 [facility] Comment on above: Performed By: #### L ACT #### [facility] [address] [place] [address] Dr. Errol Flannery LACTATE/LACTIC ACIDon 2021 Lactate [Moles/Vol] 0.8 mmol/L Normal 0.4-1.9 The [facility] Comment on above: Performed By: #### L ACT #### [facility] [address] [place] [address] Dr. Errol Flannery Lactate [Moles/Vol] 0.9 mmol/L Normal 0.4-1.9 The [facility] Comment on above: Performed By: #### L ACT ####[facility] [address] [address]Dr. Errol Flannery PROF CHEM 8 (BAS METB)on Anion gap [Moles/Vol] 11.5 mmol/L Normal [facility] Comment on above: Performed By: #### C MADM, BMP ####[facility] [address] [id number]. Errol Flannery Calcium [Mass/Vol] 8.9 mg/dL Normal 8.5-10.1 [facility] Comment on above: Performed By: #### C MADM, BMP ####[facility] [address] [id number]. Errol Flannery Chloride [Moles/Vol] 104 mmol/L Normal 98-107 [facility] Comment on above: Performed By: #### C MADM, BMP ####[facility] [address] [id number]. Errol Flannery CO2 [Moles/Vol] 28.3 mmol/L Normal 21.0-32.0 [facility] Comment on above: Performed By: #### C MADM, BMP ####[facility] [address] [place], [place] [address]Dr. Errol Flannery Creatinine [Mass/Vol] 1.04 mg/dL Critically high 0.55-1.02 [facility] Comment on above: Performed By: #### C KRISTIM, BMP ####[facility] [address] [address]Dr. Errol Flannery EGFR-AF NAMIBIAN >60 Normal >=60 [facility] Comment on above: Performed By: #### C MADM, BMP ####[facility] [address] [address]Dr. Errol Flannery EGFR-NON AF NAMIBIAN 50 mL/min/1.73m2 Critically low >=60 [facility] Comment on above: Performed By: #### C MADM, BMP ####[facility] [address] [address]Dr. Errol Flannery Glucose [Mass/Vol] 131 mg/dL Critically high 74-106 [facility] [place] Comment on above: Performed By: #### C MADM, BMP ####[facility] [address] [phone]. Errol Flannery Potassium [Moles/Vol] 3.8 mmol/L Normal 3.5-5.1 [facility] Comment on above: Performed By: #### C ALICIA, BMP ####[facility] [address] [address]DrElana Flannery Sodium [Moles/Vol] 140 mmol/L Normal 136-145 [facility] Comment on above: Performed By: #### C ALICIA, BMP ####[facility] [address] [address]Dr. Errol Flannery Urea nitrogen [Mass/Vol] 16.0 mg/dL Normal 7.0-18.0 [facility] Comment on above: Performed By: #### C ALICIA, BMP ####[facility] [address] [address]Dr. Errol Flannery Urea nitrogen/Creatinine [Mass ratio] 15.4 mg/mg Normal [facility] Comment on above: Performed By: #### C ALICIA, BMP ####[facility] [address] [address]DrElana Flannery URINE MICROSCOPIC ONLYon BACTERIA TRACE Abnormal NONE SEEN [facility] Comment on above: Performed By: #### L ACT #### [facility] [address] [place] [address] Dr. Errol Flannery Bacteria identified Cx Nom (U) NOT INDICATED Normal [facility] Comment on above: Performed By: #### L ACT #### [facility] [address] [place] [address] Dr. Errol Flannery CAST NONE SEEN Normal NONE SEEN [facility] Comment on above: Performed By: #### L ACT #### [facility] [address] [place] [address] Dr. Errol Flannery Crystals LM Nom (Urine sed) NONE SEEN Normal NONE SEEN [facility] Comment on above: Performed By: #### L ACT #### [facility] [address] [place] [address] Dr. Errol Flannery Epithelial cells LM Ql (Urine sed) FEW Abnormal NONE SEEN /RARE [facility] Comment on above: Performed By: #### L ACT #### [facility] [address] [address] [address] Errol Flannery MUCOUS NONE SEEN Normal NONE SEEN [facility] Comment on above: Performed By: #### L ACT #### [facility] [address] [address] [address] Errol Flannery RBC 0-2 Normal 0-2 [facility] Comment on above: Performed By: #### L ACT #### [facility] [address] [place] [address] Dr. Errol Flannery WBC 2-5 Abnormal NONE SEEN [facility] Comment on above: Performed By: #### L ACT #### [facility] [address] [place] [address] Dr. Errol Flannery XR CHEST 1 Von [...] GENO LAU Date: 2022-04-28 23:01 Normal [facility] CBC AUTO DIFFon 04-12-2022 BASO # 0.0 103/ul Normal 0.0-0.1 [facility] Comment on above: Performed By: #### C BC ####[facility] [address] [address]Dr. Errol Flannery Basophils/100 WBC (Bld) 0.5 % Normal 0.2-2.0 [facility] Comment on above: Performed By: #### C BC ####[facility] [address] [address]DrElana Flannery EO # 0.1 103/ul Normal 0.0-0.7 [facility] Comment on above: Performed By: #### C BC ####[facility] [address] [address]DrElana Flannery Eosinophils/100 WBC (Bld) 1.9 % Normal 0.9-7.0 [facility] Comment on above: Performed By: #### C BC ####[facility] [address] [place], [place] [address]Dr. Pammissy Flannery Erythrocyte distribution width (RBC) [Ratio] 14.1 % Normal 11.0-15.0 [facility] Comment on above: Performed By: #### C BC ####[facility] [address] [place], [place] [address]Dr. Errol Flannery Hematocrit (Bld) [Volume fraction] 35.1 % Critically low 36.0-48.0 [facility] Comment on above: Performed By: #### C BC ####[facility] [address] [place], [place] [address]Dr. Errol Flannery Hemoglobin (Bld) [Mass/Vol] 11.5 g/dL Critically low 12.0-16.0 [facility] Comment on above: Performed By: #### C BC ####[facility] [address] [place], [place] [address]Dr. Errol Flannery IG # 0.02 10e3/ul Normal 0.00-0.03 [facility] Comment on above: Performed By: #### C BC ####[facility] [address] [place], [place] [address]Dr. Errol Flannery IG % 0.3 % Normal 0.0-0.5 [facility] Comment on above: Performed By: #### C BC ####[facility] [address] [place], [place] [address]Dr. Errol Flannery LYMPH # 1.4 103/ul Normal 1.2-3.8 [facility] Comment on above: Performed By: #### C BC ####[facility] [address] [address] [place], [place] [address]Dr. Errol Flannery Lymphocytes/100 WBC (Bld) 24.2 % Normal 20.5-60.0 [facility] Comment on above: Performed By: #### C BC ####[facility] Qpefrfxuaw[address] [place], [place] [address]Dr. Errol Flannery MANUAL DIFF REQ NO Normal [facility] Comment on above: Performed By: #### C BC ####[facility] [address] [place] [address]Dr. Errol Flannery MCH (RBC) [Entitic mass] 30.6 pg Normal 26.7-34.0 [facility] Comment on above: Performed By: #### C BC ####[facility] [address]kofh[address] [place] [address]Dr. Errol Flannery MCHC (RBC) [Mass/Vol] 32.8 g/dL Normal 29.9-35.2 [facility] Comment on above: Performed By: #### C BC ####[facility] Ukpecvwcuw[address] [place], [place] [address]DrElana Flannery MCV (RBC) [Entitic vol] 93.4 fL Normal 81.0-99.0 [facility] Comment on above: Performed By: #### C BC ####[facility] Xenwdnnerm[address] [place], [place] [address]DrElana Flannery MONO # 0.6 103/ul Normal 0.3-0.8 [facility] Comment on above: Performed By: #### C BC ####[facility] Mfulottlrp[address] [place], [place] [address]DrElana Flannery Monocytes/100 WBC (Bld) 10.0 % Normal 1.7-12.0 [facility] Comment on above: Performed By: #### C BC ####[facility] Xiwnhprpuj[address] [place], [place] [address]DrElana Flannery NEUT # 3.7 103/ul Normal 1.4-6.5 [facility] Comment on above: Performed By: #### C BC ####[facility] Nqdomacmhw[address] [place], [place] [address]DrElana Flannery Neutrophils/100 WBC (Bld) 63.1 % Normal 43.0-75.0 [facility] Comment on above: Performed By: #### C BC ####[facility] Ezkvpvrnas[address] [place], [place] [address]Dr. Errol Flannery Platelet mean volume (Bld) [Entitic vol] 9.8 fL Normal 9.5-13.5 [facility] Comment on above: Performed By: #### C BC ####[facility] Op[address]pgctfiz[address] [place] [id number]. Errol Flannery PLT 237 103/ul Normal 150-450 [facility] Comment on above: Performed By: #### C BC ####[facility] Oslcfbdxvk[address] [place] [phone]. Errol Flannery RBC 3.76 106/ul Critically low 4.20-5.40 [facility] Comment on above: Performed By: #### C BC ####[facility] Nygajsievx[address] [place] [id number]. Errol Flannery WBC 5.8 103/ul Normal 4.0-11.0 [facility] Comment on above: Performed By: #### C BC ####[facility] Us[address]niqcrr[address] [place] [phone]. Errol Flannery PROF 14(COMP METB)on 022 Albumin [Mass/Vol] 2.2 g/dL Critically low 3.4-5.0 [facility] Comment on above: Performed By: #### L ACT #### [facility] [address] [address] [address] Errol Flannery Albumin/Globulin [Mass ratio] 0.7 {ratio} Normal [facility] Comment on above: Performed By: #### L ACT #### [facility] [address] [address] [address] Errol Flannery ALP [Catalytic activity/Vol] 65 U/L Normal 46-116 [facility] Comment on above: Performed By: #### L ACT #### [facility] [address] [address] [address] Errol Flannery ALT [Catalytic activity/Vol] 32 U/L Normal 14-59 [facility] Comment on above: Performed By: #### L ACT #### [facility] [address] [address] [address] Errol Flannery Anion gap [Moles/Vol] 8.6 mmol/L Normal [facility] Comment on above: Performed By: #### L ACT #### [facility] [address] [address] [address] Errol Flannery AST [Catalytic activity/Vol] 21 U/L Normal 15-37 [facility] Comment on above: Performed By: #### L ACT #### [facility] [address] [address] [address] Errol Flannery Bilirubin [Mass/Vol] 0.2 mg/dL Normal 0.2-1.0 [facility] Comment on above: Performed By: #### L ACT #### [facility] [address] [address] [address] Errol Flannery Calcium [Mass/Vol] 8.5 mg/dL Normal 8.5-10.1 [facility] Comment on above: Performed By: #### L ACT #### [facility] [address] [address] [address] Errol Flannery Chloride [Moles/Vol] 109 mmol/L Critically high 98-107 [facility] Comment on above: Performed By: #### L ACT #### [facility] [address] [address] [address] Errol Flannery CO2 [Moles/Vol] 29.0 mmol/L Normal 21.0-32.0 [facility] Comment on above: Performed By: #### L ACT #### [facility] [address] [address] [address] Errol Flannery Creatinine [Mass/Vol] 1.01 mg/dL Normal 0.55-1.02 [facility] Comment on above: Performed By: #### L ACT #### [facility] [address] [address] [address] Errol Flannery EGFR-AF NAMIBIAN >60 Normal >=60 [facility] Comment on above: Performed By: #### L ACT #### [facility] [address] [address] [address] Errol Flannery EGFR-NON AF NAMIBIAN 52 mL/min/1.73m2 Critically low >=60 [facility] Comment on above: Performed By: #### L ACT #### [facility] [address] [address] [address] Errol Flannery Globulin (S) [Mass/Vol] 3.1 g/dL Normal [facility] Comment on above: Performed By: #### L ACT #### [facility] [address] [address] [address] Errol Flannery Glucose [Mass/Vol] 98 mg/dL Normal 74-106 [facility] Comment on above: Performed By: #### L ACT #### [facility] [address] [address] [address] Errol Flannery Potassium [Moles/Vol] 4.6 mmol/L Normal 3.5-5.1 [facility] Comment on above: Performed By: #### L ACT #### [facility] [address] [place] [address] Dr. Errol Flannery Protein [Mass/Vol] 5.3 g/dL Critically low 6.4-8.2 [facility] Comment on above: Performed By: #### L ACT #### [facility] [address] [place] [address] Dr. Errol Flannery Sodium [Moles/Vol] 142 mmol/L Normal 136-145 [facility] Comment on above: Performed By: #### L ACT #### [facility] [address] [place] [address] Dr. Errol Flannery Urea nitrogen [Mass/Vol] 16.0 mg/dL Normal 7.0-18.0 [facility] Comment on above: Performed By: #### L ACT #### [facility] [address] [place] [address] Dr. Errol Flannery Urea nitrogen/Creatinine [Mass ratio] 15.8 mg/mg Normal [facility] Comment on above: Performed By: #### L ACT #### [facility] [address] [place] [address] Dr. Errol Flannery CBC AUTO DIFFon 04-11-2022 BASO # 0.0 103/ul Normal 0.0-0.1 [facility] Comment on above: Performed By: #### C BC ####[facility] [address]ry[address] [place] [phone]. Errol Flannery Basophils/100 WBC (Bld) 0.6 % Normal 0.2-2.0 [facility] Comment on above: Performed By: #### C BC ####[facility] Hapjnfpwmj[address] [place], [place] [address]Dr. Errol Flannery EO # 0.1 103/ul Normal 0.0-0.7 [facility] Comment on above: Performed By: #### C BC ####[facility] Wdqzzcmkdy547[address] [place], [place] [address]Dr. Errol Flannery Eosinophils/100 WBC (Bld) 1.8 % Normal 0.9-7.0 [facility] Comment on above: Performed By: #### C BC ####[facility] Yflswvztqk650[address] [place], [place] [address]Dr. Errol Flannery Erythrocyte distribution width (RBC) [Ratio] 14.0 % Normal 11.0-15.0 [facility] Comment on above: Performed By: #### C BC ####[facility] Qxzzbmvdsa157[address] [place], [place] [address]Dr. Errol Flannery Hematocrit (Bld) [Volume fraction] 34.5 % Critically low 36.0-48.0 [facility] Comment on above: Performed By: #### C BC ####[facility] Zasmxbxydx[address] [place], [place] [address]Dr. Errol Flannery Hemoglobin (Bld) [Mass/Vol] 11.1 g/dL Critically low 12.0-16.0 [facility] Comment on above: Performed By: #### C BC ####[facility] Shifkrsfma[address] [place], [place] [address]Dr. Errol Flannery IG # 0.02 10e3/ul Normal 0.00-0.03 [facility] Comment on above: Performed By: #### C BC ####[facility] Uixuiilxqb[address] [place], [place] [address]Dr. Errol Flannery IG % 0.3 % Normal 0.0-0.5 [facility] Comment on above: Performed By: #### C BC ####[facility] [address]msrervdgh[address] [place] [phone]. Errol Flannery LYMPH # 1.6 103/ul Normal 1.2-3.8 [facility] Comment on above: Performed By: #### C BC ####[facility] Tzgapfzkfq16[address] [place] [phone]. Errol Flannery Lymphocytes/100 WBC (Bld) 21.9 % Normal 20.5-60.0 [facility] Comment on above: Performed By: #### C BC ####[facility] [address]fcvkuptrs7[address] [place] [phone]. Errol Flannery MANUAL DIFF REQ NO Normal [facility] Comment on above: Performed By: #### C BC ####[facility] F[address]izocsan4[address] [place] [phone]. Errol Flannery MCH (RBC) [Entitic mass] 30.1 pg Normal 26.7-34.0 [facility] Comment on above: Performed By: #### C BC ####[facility] Krppbzogje0[address] [place] [phone]. Errol Flannery MCHC (RBC) [Mass/Vol] 32.2 g/dL Normal 29.9-35.2 [facility] Comment on above: Performed By: #### C BC ####[facility] Mmiajzukdf4[address] [place] [phone]. Errol Flannery MCV (RBC) [Entitic vol] 93.5 fL Normal 81.0-99.0 [facility] Comment on above: Performed By: #### C BC ####[facility] Kffekzljnp036[address] [place] [phone]. Errol Flannery MONO # 0.7 103/ul Normal 0.3-0.8 [facility] Comment on above: Performed By: #### C BC ####[facility] Llzelojsja76[address] [place] [phone]. Errol Flannery Monocytes/100 WBC (Bld) 9.4 % Normal 1.7-12.0 [facility] Comment on above: Performed By: #### C BC ####[facility] Aedgaiswyk[address] [place] [phone]. Errol Flannery NEUT # 4.8 103/ul Normal 1.4-6.5 [facility] Comment on above: Performed By: #### C BC ####[facility] Hfzbnmgkui43[address] [place] [phone]. Errol Flannery Neutrophils/100 WBC (Bld) 66.0 % Normal 43.0-75.0 [facility] Comment on above: Performed By: #### C BC ####[facility] Ttpoiligri85[address] [place] [phone]. Errol Flannery Platelet mean volume (Bld) [Entitic vol] 9.2 fL Critically low 9.5-13.5 [facility] Comment on above: Performed By: #### C BC ####[facility] Dlfklhecqa[address] [place], [place] [address]Dr. Errol Flannery PLT 240 103/ul Normal 150-450 [facility] Comment on above: Performed By: #### C BC ####[facility] Ywodzktrho[address] [place], [place] [address]Dr. Errol Flannery RBC 3.69 106/ul Critically low 4.20-5.40 [facility] Comment on above: Performed By: #### C BC ####[facility] P[address]gyx[address] [place] [address]Dr. Errol Flannery WBC 7.3 103/ul Normal 4.0-11.0 [facility] Comment on above: Performed By: #### C BC ####[facility] Hzlxcdreoz4687 [place] [phone]. Errol Flannery GI PANEL (PCR)on 04-11-2022 Adenovirus F 40/41 Not detected Normal NOT DETECTED [facility] Comment on above: Performed By: #### G IPANEL ####[facility] V[address]fkdnvx[address] [place] [address]Dr. Errol Flannery Astrovirus Not detected Normal NOT DETECTED [facility] Comment on above: Performed By: #### G IPANEL ####[facility] Segabowitt[address] [place] [address]Dr. Errol Flannery C. Diff toxin A/B Detected Critically abnormal NOT DETECTED [facility] Comment on above: Performed By: #### G IPANEL ####[facility] Ldektnxfmc47[address] [place] [address]Dr. Errol Flannery Campylobacter Not detected Normal NOT DETECTED [facility] Comment on above: Performed By: #### G IPANEL ####[facility] Hilsclxoow[address] [place] [address]Dr. Errol Flannery Cryptosporidium Not detected Normal NOT DETECTED The [facility] Comment on above: Performed By: #### G IPANEL ####[facility] Kkxfgapwly[address] [place], [place] [address]Dr. Errol Flannery Cyclos. Cayetanensis Not detected Normal NOT DETECTED [facility] Comment on above: Performed By: #### G IPANEL ####[facility] Giyguidpkh94[address] [place], [place] [address]Dr. Errol Flannery E. Coli O157 Not Applicable Normal Not Applicable [facility] Comment on above: Performed By: #### G IPANEL ####[facility] Mrsgkecpco395[address] [place], [place] [address]Dr. Errol Flannery E. histolytica Not detected Normal NOT DETECTED The [facility] Comment on above: Performed By: #### G IPANEL ####[facility] Sdyyxqqzpl[address] [place], [place] [address]Dr. Errol Flannery EAEC Not detected Normal NOT DETECTED [facility] Comment on above: Performed By: #### G IPANEL ####[facility] Rinkumzdxl12[address] [place], [place] [address]Dr. Errol Flannery EIEC Not detected Normal NOT DETECTED [facility] Comment on above: Performed By: #### G IPANEL ####[facility] Hymdccuoas4[address] [place], [place] [address]Dr. Errol Flannery EPEC Not detected Normal NOT DETECTED [facility] Comment on above: Performed By: #### G IPANEL ####[facility] Awuuokfxgo20[address] [place], [place] [address]Dr. Errol Flannery ETEC Not detected Normal NOT DETECTED [facility] Comment on above: Performed By: #### G IPANEL ####[facility] Vawrjbuiiv30[address] [place] [phone]. Errol Flannery G. Lamblia Not detected Normal NOT DETECTED [facility] Comment on above: Performed By: #### G IPANEL ####[facility] Hjchudwycu7[address] [place] [phone]. Errol HUNTANEL CONTROLS PASSED Normal [facility] Comment on above: Performed By: #### G IPANEL ####[facility] Yqemjfbbcn75[address] [place] [address]Dr. Errol JAY JUNAID HEADER GI PANEL BACTERIA Normal [facility] Comment on above: Performed By: #### G IPANEL ####[facility] Iqxzgibirq[address] [place], [place] [address]Dr. Errol JAYHD ECOLI GI PANEL DIARRHEAGENIC E.COLI / SHIGELLA Normal [facility] Comment on above: Performed By: #### G IPANEL ####[facility] Jhvfftjyay[address] [place], [place] [address]Dr. Errol BAEZ INFO SEE BELOW Normal [facility] Comment on above: Result Comment: EAEC - Enteroaggregative E. Coli EPEC- Enteropathogenic E. Coli ETEC- Enterotoxigenic E. Coli lt/st STEC- Shigella-like toxin-producing E. Coli stx1/stx2 EIEC- Shigella/Enteroinvasive E. Coli Performed By: #### G IPANEL ####[facility] Emkodmzjpe[address] [place] [phone]. Errol HUNTNLHD PARASITES GI PANEL PARASITES Normal [facility] Comment on above: Performed By: #### G IPANEL ####[facility] Ukzhxmmuxg69[address] [place] [address]Dr. Errol JAYHD VIRUS GI PANEL VIRUSES Normal The [facility] Comment on above: Performed By: #### G IPANEL ####[facility] Kdxpezumrh7[address] [place], [place] [address]Dr. Errol Flannery Norovirus GI/GII Not detected Normal NOT DETECTED [facility] Comment on above: Performed By: #### G IPANEL ####[facility] Qvtvybgdwb[address] [place], [place] [address]Dr. Errol Flannery P. Shigelloides Not detected Normal NOT DETECTED The [facility] Comment on above: Performed By: #### G IPANEL ####[facility] Yqrdnublph065[address] [place], [place] [address]Dr. Errol Flannery Rotavirus A Not detected Normal NOT DETECTED [facility] Comment on above: Performed By: #### G IPANEL ####[facility] Onnmpstizg54[address] [place], [place] [address]Dr. Errol Flannery Salmonella Not detected Normal NOT DETECTED [facility] Comment on above: Performed By: #### G IPANEL ####[facility] Thmvudzstx49[address] [place], [place] [address]Dr. Errol Flannery Sapovirus Not detected Normal NOT DETECTED [facility] Comment on above: Performed By: #### G IPANEL ####[facility] Fbmyprkikm7[address] [place], [place] [address]Dr. Errol Flannery STEC Not detected Normal NOT DETECTED [facility] Comment on above: Performed By: #### G IPANEL ####[facility] Mfiyhvigzw[address] [place], [place] [address]Dr. Errol Flannery Vibrio Not detected Normal NOT DETECTED [facility] Comment on above: Performed By: #### G IPANEL ####[facility] Qfppinyjmt12[address] [place], [place] [address]Dr. Errol Flannery Vibrio Cholera Not detected Normal NOT DETECTED [facility] Comment on above: Performed By: #### G IPANEL ####[facility] Kfdzacgqrw[address] [place], [place] [address]Dr. Errol Flannery Y. Enterocolitica Not detected Normal NOT DETECTED [facility] Comment on above: Performed By: #### G IPANEL ####[facility] Buiagtmqpi22[address] [place], [place] [address]Dr. Errol Flannery OCC BLD IMMUNOASSAYon 2021 OCCULT BLOOD Positive Abnormal NEGATIVE [facility] Comment on above: Performed By: #### O EDISON ####[facility] Gesfuncmyv[address] [place] [address]Dr. Errol Flannery PROF 14(COMP METB)on 022 Albumin [Mass/Vol] 2.1 g/dL Critically low 3.4-5.0 [facility] Comment on above: Performed By: #### C BC #### [facility] [address] [address] [address] Errol Flannery Albumin/Globulin [Mass ratio] 0.7 {ratio} Normal [facility] Comment on above: Performed By: #### C BC #### [facility] [address] [place] [address] Dr. Errol Flannery ALP [Catalytic activity/Vol] 60 U/L Normal 46-116 [facility] Comment on above: Performed By: #### C BC #### [facility] [address] [address] [address] Errol Flannery ALT [Catalytic activity/Vol] 30 U/L Normal 14-59 [facility] Comment on above: Performed By: #### C BC #### [facility] [address] [place] [address] Dr. Errol Flannery Anion gap [Moles/Vol] 8.9 mmol/L Normal [facility] Comment on above: Performed By: #### C BC #### [facility] [address] [place] [address] Dr. Errol Flannery AST [Catalytic activity/Vol] 20 U/L Normal 15-37 [facility] Comment on above: Performed By: #### C BC #### [facility] [address] [place], [place] [id number] Dr. Errol Flannery Bilirubin [Mass/Vol] 0.3 mg/dL Normal 0.2-1.0 [facility] Comment on above: Performed By: #### C BC #### [facility] [address] [place] [address] Dr. Errol Flannery Calcium [Mass/Vol] 8.2 mg/dL Critically low 8.5-10.1 [facility] Comment on above: Performed By: #### C BC #### [facility] [address] [address] [address] Errol Flannery Chloride [Moles/Vol] 109 mmol/L Critically high 98-107 [facility] Comment on above: Performed By: #### C BC #### [facility] [address] [address] [address] Errol Flannery CO2 [Moles/Vol] 27.7 mmol/L Normal 21.0-32.0 [facility] Comment on above: Performed By: #### C BC #### [facility] [address] [address] [address] Errol Flannery Creatinine [Mass/Vol] 1.03 mg/dL Critically high 0.55-1.02 [facility] Comment on above: Performed By: #### C BC #### [facility] [address] [address] [address] Errol Flannery EGFR-AF NAMIBIAN >60 Normal >=60 [facility] Comment on above: Performed By: #### C BC #### [facility] [address] [address] [address] Errol Flannery EGFR-NON AF NAMIBIAN 51 mL/min/1.73m2 Critically low >=60 [facility] Comment on above: Performed By: #### C BC #### [facility] [address] [address] [address] Errol Flannery Globulin (S) [Mass/Vol] 3.0 g/dL Normal [facility] Comment on above: Performed By: #### C BC #### [facility] [address] [address] [address] Errol Flannery Glucose [Mass/Vol] 91 mg/dL Normal 74-106 [facility] Comment on above: Performed By: #### C BC #### [facility] [address] [address] [address] Errol Flannery Potassium [Moles/Vol] 3.6 mmol/L Normal 3.5-5.1 [facility] Comment on above: Performed By: #### C BC #### [facility] [address] [place] [address] Dr. Errol Flannery Protein [Mass/Vol] 5.1 g/dL Critically low 6.4-8.2 [facility] Comment on above: Performed By: #### C BC #### [facility] [address] [place] [address] Dr. Errol Flannery Sodium [Moles/Vol] 142 mmol/L Normal 136-145 [facility] Comment on above: Performed By: #### C BC #### [facility] [address] [place] [address] Dr. Errol Flannery Urea nitrogen [Mass/Vol] 11.0 mg/dL Normal 7.0-18.0 [facility] Comment on above: Performed By: #### C BC #### [facility] [address] [place] [address] Dr. Errol Flannery Urea nitrogen/Creatinine [Mass ratio] 10.7 mg/mg Normal [facility] Comment on above: Performed By: #### C BC #### [facility] [address] [place] [address] Dr. Errol Flannery CBC AUTO DIFFon 04-10-2022 BASO # 0.0 103/ul Normal 0.0-0.1 [facility] Comment on above: Performed By: #### C BC #### [facility] [address] [place] [address] Dr. Errol Flannery Basophils/100 WBC (Bld) 0.4 % Normal 0.2-2.0 [facility] Comment on above: Performed By: #### C BC #### [facility] [address] [place] [address] Dr. Errol Flannery EO # 0.1 103/ul Normal 0.0-0.7 [facility] Comment on above: Performed By: #### C BC #### [facility] [address] [place] [address] Dr. Errol Flannery Eosinophils/100 WBC (Bld) 2.1 % Normal 0.9-7.0 [facility] Comment on above: Performed By: #### C BC #### [facility] [address] [place] [address] Dr. Errol Flannery Erythrocyte distribution width (RBC) [Ratio] 13.8 % Normal 11.0-15.0 [facility] Comment on above: Performed By: #### C BC #### [facility] [address] [place] [address] Dr. Errol Flannery Hematocrit (Bld) [Volume fraction] 35.9 % Critically low 36.0-48.0 [facility] Comment on above: Performed By: #### C BC #### [facility] [address] [place] [address] Dr. Errol Flannery Hemoglobin (Bld) [Mass/Vol] 11.6 g/dL Critically low 12.0-16.0 [facility] Comment on above: Performed By: #### C BC #### [facility] [address] [place] [address] Dr. Errol Flannery IG # 0.03 10e3/ul Normal 0.00-0.03 [facility] Comment on above: Performed By: #### C BC #### [facility] [address] [place] [address] Dr. Errol Flannery IG % 0.5 % Normal 0.0-0.5 [facility] Comment on above: Performed By: #### C BC #### [facility] [address] [place] [address] Dr. Errol Flannery LYMPH # 1.2 103/ul Normal 1.2-3.8 [facility] Comment on above: Performed By: #### C BC #### [facility] [address] [place] [address] Dr. Errol Flannery Lymphocytes/100 WBC (Bld) 21.7 % Normal 20.5-60.0 [facility] Comment on above: Performed By: #### C BC #### [facility] [address] [place] [address] Dr. Errol Flannery MANUAL DIFF REQ NO Normal [facility] Comment on above: Performed By: #### C BC #### [facility] [address] [address] [address] Errol Flannery MCH (RBC) [Entitic mass] 30.0 pg Normal 26.7-34.0 [facility] Comment on above: Performed By: #### C BC #### [facility] [address] [place] [address] Dr. Errol Flannery MCHC (RBC) [Mass/Vol] 32.3 g/dL Normal 29.9-35.2 [facility] Comment on above: Performed By: #### C BC #### [facility] [address] [place] [address] Dr. Errol Flannery MCV (RBC) [Entitic vol] 92.8 fL Normal 81.0-99.0 [facility] Comment on above: Performed By: #### C BC #### [facility] [address] [place] [address] Dr. Errol Flannery MONO # 0.6 103/ul Normal 0.3-0.8 [facility] Comment on above: Performed By: #### C BC #### [facility] [address] [place] [address] Dr. Errol Flannery Monocytes/100 WBC (Bld) 10.5 % Normal 1.7-12.0 [facility] Comment on above: Performed By: #### C BC #### [facility] [address] [place] [address] Dr. Errol Flannery NEUT # 3.6 103/ul Normal 1.4-6.5 [facility] Comment on above: Performed By: #### C BC #### [facility] [address] [place] [address] Dr. Errol Flannery Neutrophils/100 WBC (Bld) 64.8 % Normal 43.0-75.0 [facility] Comment on above: Performed By: #### C BC #### [facility] [address] [place] [address] Dr. Errol Flannery Platelet mean volume (Bld) [Entitic vol] 9.0 fL Critically low 9.5-13.5 [facility] Comment on above: Performed By: #### C BC #### [facility] [address] [place] [address] Dr. Errol Flannery PLT 250 103/ul Normal 150-450 [facility] Comment on above: Performed By: #### C BC #### [facility] [address] [place] [address] Dr. Errol Flannery RBC 3.87 106/ul Critically low 4.20-5.40 [facility] Comment on above: Performed By: #### C BC #### [facility] [address] [place] [address] Dr. Errol Flannery WBC 5.6 103/ul Normal 4.0-11.0 [facility] Comment on above: Performed By: #### C BC #### [facility] [address] [place] [address] Dr. Errol Flannery PROF 14(COMP METB)on 022 Albumin [Mass/Vol] 2.2 g/dL Critically low 3.4-5.0 [facility] Comment on above: Performed By: #### L ACT #### [facility] [address] [place] [address] Dr. Errol Flannery Albumin/Globulin [Mass ratio] 0.8 {ratio} Normal [facility] Comment on above: Performed By: #### L ACT #### [facility] [address] [place] [address] Dr. Errol Flannery ALP [Catalytic activity/Vol] 67 U/L Normal 46-116 [facility] Comment on above: Performed By: #### L ACT #### [facility] [address] [place] [address] Dr. Errol Flannery ALT [Catalytic activity/Vol] 27 U/L Normal 14-59 [facility] Comment on above: Performed By: #### L ACT #### [facility] [address] [place] [address] Dr. Errol Flannery Anion gap [Moles/Vol] 8.9 mmol/L Normal [facility] Comment on above: Performed By: #### L ACT #### [facility] [address] [place] [address] Dr. Errol Flannery AST [Catalytic activity/Vol] 18 U/L Normal 15-37 [facility] Comment on above: Performed By: #### L ACT #### [facility] [address] [address] [address] Errol Flannery Bilirubin [Mass/Vol] 0.3 mg/dL Normal 0.2-1.0 [facility] Comment on above: Performed By: #### L ACT #### [facility] [address] [address] [address] Errol Flannery Calcium [Mass/Vol] 8.3 mg/dL Critically low 8.5-10.1 [facility] Comment on above: Performed By: #### L ACT #### [facility] [address] [address] [address] Errol Flannery Chloride [Moles/Vol] 110 mmol/L Critically high 98-107 [facility] Comment on above: Performed By: #### L ACT #### [facility] [address] [address] [address] Errol Flannery CO2 [Moles/Vol] 26.6 mmol/L Normal 21.0-32.0 [facility] Comment on above: Performed By: #### L ACT #### [facility] [address] [place] [address] Dr. Errol Flannery Creatinine [Mass/Vol] 0.95 mg/dL Normal 0.55-1.02 [facility] Comment on above: Performed By: #### L ACT #### [facility] [address] [address] [address] Errol Flannery EGFR-AF NAMIBIAN >60 Normal >=60 [facility] Comment on above: Performed By: #### L ACT #### [facility] [address] [address] [address] Errol Flannery EGFR-NON AF NAMIBIAN 56 mL/min/1.73m2 Critically low >=60 [facility] Comment on above: Performed By: #### L ACT #### [facility] [address] [address] [address] Errol Flannery Globulin (S) [Mass/Vol] 2.9 g/dL Normal [facility] Comment on above: Performed By: #### L ACT #### [facility] [address] [address] [address] Errol Flannery Glucose [Mass/Vol] 93 mg/dL Normal 74-106 [facility] Comment on above: Performed By: #### L ACT #### [facility] [address] [address] [address] Errol Flannery Potassium [Moles/Vol] 3.5 mmol/L Normal 3.5-5.1 [facility] Comment on above: Performed By: #### L ACT #### [facility] [address] [place] [address] Dr. Errol Flannery Protein [Mass/Vol] 5.1 g/dL Critically low 6.4-8.2 [facility] Comment on above: Performed By: #### L ACT #### [facility] [address] [place] [address] Dr. Errol Flannery Sodium [Moles/Vol] 142 mmol/L Normal 136-145 [facility] Comment on above: Performed By: #### L ACT #### [facility] [address] [place] [address] Dr. Errol Flannery Urea nitrogen [Mass/Vol] 10.0 mg/dL Normal 7.0-18.0 [facility] Comment on above: Performed By: #### L ACT #### [facility] [address] [place] [address] Dr. Errol Flannery Urea nitrogen/Creatinine [Mass ratio] 10.5 mg/mg Normal [facility] Comment on above: Performed By: #### L ACT #### [facility] [address] [address] [address] Errol Flannery CBC AUTO DIFFon 04-09-2022 BASO # 0.0 103/ul Normal 0.0-0.1 [facility] Comment on above: Performed By: #### C BC #### [facility] [address] [place] [address] Dr. Errol Flannery Basophils/100 WBC (Bld) 0.3 % Normal 0.2-2.0 [facility] Comment on above: Performed By: #### C BC #### [facility] [address] [place] [address] Dr. Errol Flannery EO # 0.1 103/ul Normal 0.0-0.7 [facility] Comment on above: Performed By: #### C BC #### [facility] [address] [place] [address] Dr. Errol Flannery Eosinophils/100 WBC (Bld) 1.9 % Normal 0.9-7.0 [facility] Comment on above: Performed By: #### C BC #### [facility] [address] [place] [address] Dr. Errol Flannery Erythrocyte distribution width (RBC) [Ratio] 13.5 % Normal 11.0-15.0 [facility] Comment on above: Performed By: #### C BC #### [facility] [address] [place] [address] Dr. Errol Flannery Hematocrit (Bld) [Volume fraction] 34.8 % Critically low 36.0-48.0 [facility] Comment on above: Performed By: #### C BC #### [facility] [address] [place] [address] Dr. Errol Flannery Hemoglobin (Bld) [Mass/Vol] 11.3 g/dL Critically low 12.0-16.0 [facility] Comment on above: Performed By: #### C BC #### [facility] [address] [place] [address] Dr. Errol Flannery IG # 0.02 10e3/ul Normal 0.00-0.03 [facility] Comment on above: Performed By: #### C BC #### [facility] [address] [place] [address] Dr. Errol Flannery IG % 0.3 % Normal 0.0-0.5 [facility] Comment on above: Performed By: #### C BC #### [facility] [address] [place] [address] Dr. Errol Flannery LYMPH # 1.4 103/ul Normal 1.2-3.8 [facility] Comment on above: Performed By: #### C BC #### [facility] [address] [place] [address] Dr. Errol Flannery Lymphocytes/100 WBC (Bld) 23.8 % Normal 20.5-60.0 [facility] Comment on above: Performed By: #### C BC #### [facility] [address] [place] [address] Dr. Errol Flannery MANUAL DIFF REQ NO Normal [facility] Comment on above: Performed By: #### C BC #### [facility] [address] [place] [address] Dr. Errol Flannery MCH (RBC) [Entitic mass] 30.4 pg Normal 26.7-34.0 [facility] Comment on above: Performed By: #### C BC #### [facility] [address] [place] [address] Dr. Errol Flannery MCHC (RBC) [Mass/Vol] 32.5 g/dL Normal 29.9-35.2 [facility] Comment on above: Performed By: #### C BC #### [facility] [address] [place] [address] Dr. Errol Flannery MCV (RBC) [Entitic vol] 93.5 fL Normal 81.0-99.0 [facility] Comment on above: Performed By: #### C BC #### [facility] [address] [place] [address] Dr. Errol Flannery MONO # 0.6 103/ul Normal 0.3-0.8 [facility] Comment on above: Performed By: #### C BC #### [facility] [address] [place] [address] Dr. Errol Flannery Monocytes/100 WBC (Bld) 9.3 % Normal 1.7-12.0 [facility] Comment on above: Performed By: #### C BC #### [facility] [address] [place] [address] Dr. Errol Flannery NEUT # 3.8 103/ul Normal 1.4-6.5 [facility] Comment on above: Performed By: #### C BC #### [facility] [address] [address] [address] Errol Flannery Neutrophils/100 WBC (Bld) 64.4 % Normal 43.0-75.0 [facility] Comment on above: Performed By: #### C BC #### [facility] [address] [address] [address] Errol Flannery Platelet mean volume (Bld) [Entitic vol] 9.2 fL Critically low 9.5-13.5 [facility] Comment on above: Performed By: #### C BC #### [facility] [address] [address] [address] Errol Flannery PLT 233 103/ul Normal 150-450 [facility] Comment on above: Performed By: #### C BC #### [facility] [address] [place] [address] Dr. Errol Flannery RBC 3.72 106/ul Critically low 4.20-5.40 [facility] Comment on above: Performed By: #### C BC #### [facility] [address] [place] [address] Dr. Errol Flannery WBC 5.9 103/ul Normal 4.0-11.0 [facility] Comment on above: Performed By: #### C BC #### [facility] [address] [place] [address] Dr. Errol Flannery PROF 14(COMP METB)on 022 Albumin [Mass/Vol] 2.2 g/dL Critically low 3.4-5.0 [facility] Comment on above: Performed By: #### L ACT #### [facility] [address] [place] [address] Dr. Errol Flannery Albumin/Globulin [Mass ratio] 0.8 {ratio} Normal [facility] Comment on above: Performed By: #### L ACT #### [facility] [address] [address] [address] Errol Flannery ALP [Catalytic activity/Vol] 61 U/L Normal 46-116 [facility] Comment on above: Performed By: #### L ACT #### [facility] [address] [address] [address] Errol Flannery ALT [Catalytic activity/Vol] 28 U/L Normal 14-59 [facility] Comment on above: Performed By: #### L ACT #### [facility] [address] [address] [address] Errol Flannery Anion gap [Moles/Vol] 8.6 mmol/L Normal [facility] Comment on above: Performed By: #### L ACT #### [facility] [address] [address] [address] Errol Flannery AST [Catalytic activity/Vol] 14 U/L Critically low 15-37 [facility] Comment on above: Performed By: #### L ACT #### [facility] [address] [address] [address] Errol Flannery Bilirubin [Mass/Vol] 0.2 mg/dL Normal 0.2-1.0 [facility] Comment on above: Performed By: #### L ACT #### [facility] [address] [address] [address] Errol Flannery Calcium [Mass/Vol] 7.9 mg/dL Critically low 8.5-10.1 [facility] Comment on above: Performed By: #### L ACT #### [facility] [address] [address] [address] Errol Flannery Chloride [Moles/Vol] 109 mmol/L Critically high 98-107 [facility] Comment on above: Performed By: #### L ACT #### [facility] [address] [address] [address] Errol Flannery CO2 [Moles/Vol] 28.6 mmol/L Normal 21.0-32.0 [facility] Comment on above: Performed By: #### L ACT #### [facility] [address] [address] [address] Errol Flannery Creatinine [Mass/Vol] 1.05 mg/dL Critically high 0.55-1.02 [facility] Comment on above: Performed By: #### L ACT #### [facility] [address] [address] [address] Errol Flannery EGFR-AF NAMIBIAN 60 mL/min/1.73m2 Normal >=60 [facility] Comment on above: Performed By: #### L ACT #### [facility] [address] [address] [address] Errol Flannery EGFR-NON AF NAMIBIAN 50 mL/min/1.73m2 Critically low >=60 [facility] Comment on above: Performed By: #### L ACT #### [facility] [address] [address] [address] Errol Flannery Globulin (S) [Mass/Vol] 2.8 g/dL Normal [facility] Comment on above: Performed By: #### L ACT #### [facility] [address] [address] [address] Errol Flannery Glucose [Mass/Vol] 111 mg/dL Critically high 74-106 [facility] Comment on above: Performed By: #### L ACT #### [facility] [address] [address] [address] Errol Flannery Potassium [Moles/Vol] 3.2 mmol/L Critically low 3.5-5.1 [facility] Comment on above: Performed By: #### L ACT #### [facility] [address] [address] [address] Errol Flannery Protein [Mass/Vol] 5.0 g/dL Critically low 6.4-8.2 [facility] Comment on above: Performed By: #### L ACT #### [facility] [address] [address] [address] Errol Flannery Sodium [Moles/Vol] 143 mmol/L Normal 136-145 [facility] Comment on above: Performed By: #### L ACT #### [facility] [address] [address] [address] Errol Flannery Urea nitrogen [Mass/Vol] 9.0 mg/dL Normal 7.0-18.0 [facility] Comment on above: Performed By: #### L ACT #### [facility] [address] [address] [address] Errol Flannery Urea nitrogen/Creatinine [Mass ratio] 8.6 mg/mg Normal [facility] Comment on above: Performed By: #### L ACT #### [facility] [id number] Errol Flannery CBC AUTO DIFFon 04-08-2022 BASO # 0.0 103/ul Normal 0.0-0.1 [facility] Comment on above: Performed By: #### C BC ####[facility] [address] [id number] Flannery Basophils/100 WBC (Bld) 0.5 % Normal 0.2-2.0 [facility] Comment on above: Performed By: #### C BC ####[facility] [address] [address]DrElana Flannery EO # 0.1 103/ul Normal 0.0-0.7 [facility] Comment on above: Performed By: #### C BC ####[facility] [address] [address]DrElana Flannery Eosinophils/100 WBC (Bld) 1.8 % Normal 0.9-7.0 [facility] Comment on above: Performed By: #### C BC ####[facility] [address] [id number] Flannery Erythrocyte distribution width (RBC) [Ratio] 13.4 % Normal 11.0-15.0 [facility] Comment on above: Performed By: #### C BC ####[facility] [address] [id number] Flannery Hematocrit (Bld) [Volume fraction] 34.3 % Critically low 36.0-48.0 [facility] Comment on above: Performed By: #### C BC ####[facility] [address] [id number] Flannery Hemoglobin (Bld) [Mass/Vol] 11.1 g/dL Critically low 12.0-16.0 [facility] Comment on above: Performed By: #### C BC ####[facility] [address] [id number]. Errol Flannery IG # 0.01 10e3/ul Normal 0.00-0.03 [facility] Comment on above: Performed By: #### C BC ####[facility] [address] [id number]. Errol Flannery IG % 0.2 % Normal 0.0-0.5 [facility] Comment on above: Performed By: #### C BC ####[facility] [address] [id number]. Errol Flannery LYMPH # 1.4 103/ul Normal 1.2-3.8 [facility] Comment on above: Performed By: #### C BC ####[facility] [address] [address]Dr. Errol Flannery Lymphocytes/100 WBC (Bld) 32.4 % Normal 20.5-60.0 [facility] Comment on above: Performed By: #### C BC ####[facility] [address] [address]Dr. Errol Flannery MANUAL DIFF REQ NO Normal [facility] Comment on above: Performed By: #### C BC ####[facility] [address] [address]Dr. Errol Flannery MCH (RBC) [Entitic mass] 30.4 pg Normal 26.7-34.0 [facility] Comment on above: Performed By: #### C BC ####[facility] [address] [address]Dr. Errol Flannery MCHC (RBC) [Mass/Vol] 32.4 g/dL Normal 29.9-35.2 [facility] Comment on above: Performed By: #### C BC ####[facility] [address] [address]Dr. Errol Flannery MCV (RBC) [Entitic vol] 94.0 fL Normal 81.0-99.0 [facility] Comment on above: Performed By: #### C BC ####[facility] [address] [phone]. Errol Flannery MONO # 0.5 103/ul Normal 0.3-0.8 [facility] Comment on above: Performed By: #### C BC ####[facility] [address] [phone]. Errol Flannery Monocytes/100 WBC (Bld) 10.4 % Normal 1.7-12.0 [facility] Comment on above: Performed By: #### C BC ####[facility] [address] [id number]. Errol Flannery NEUT # 2.4 103/ul Normal 1.4-6.5 [facility] Comment on above: Performed By: #### C BC ####[facility] [address] [phone]. Errol Flannery Neutrophils/100 WBC (Bld) 54.7 % Normal 43.0-75.0 [facility] Comment on above: Performed By: #### C BC ####[facility] [address] [phone]. Errol Flannery Platelet mean volume (Bld) [Entitic vol] 9.3 fL Critically low 9.5-13.5 [facility] Comment on above: Performed By: #### C BC ####[facility] [address] [phone]. Errol Flannery PLT 218 103/ul Normal 150-450 [facility] Comment on above: Performed By: #### C BC ####[facility] [address] [phone]. Errol Flannery RBC 3.65 106/ul Critically low 4.20-5.40 [facility] Comment on above: Performed By: #### C BC ####[facility] [address] [phone]. Errol Flannery WBC 4.4 103/ul Normal 4.0-11.0 [facility] Comment on above: Performed By: #### C BC ####[facility] [address] [place], [place] [address]Dr. Errol Flannery PROF 14(COMP METB)on 022 Albumin [Mass/Vol] 2.2 g/dL Critically low 3.4-5.0 [facility] Comment on above: Performed By: #### C MP ####[facility] [address] [place], [place] [address]Dr. Errol Flannery Albumin/Globulin [Mass ratio] 0.8 {ratio} Normal [facility] Comment on above: Performed By: #### C MP ####[facility] [address] [place], [place] [address]Dr. Errol Flannery ALP [Catalytic activity/Vol] 64 U/L Normal 46-116 [facility] Comment on above: Performed By: #### C MP ####[facility] [address] [place], [place] [address]Dr. Errol Flannery ALT [Catalytic activity/Vol] 34 U/L Normal 14-59 [facility] Comment on above: Performed By: #### C MP ####[facility] [address] [place], [place] [address]Dr. Errol Flannery Anion gap [Moles/Vol] 8.1 mmol/L Normal [facility] Comment on above: Performed By: #### C MP ####[facility] [address] [place], [place] [address]Dr. Errol Flannery AST [Catalytic activity/Vol] 14 U/L Critically low 15-37 [facility] Comment on above: Performed By: #### C MP ####[facility] [address] [place], [place] [address]Dr. Errol Flannery Bilirubin [Mass/Vol] 0.3 mg/dL Normal 0.2-1.0 [facility] Comment on above: Performed By: #### C MP ####[facility] [address] [place], [place] [address]Dr. Errol Flannery Calcium [Mass/Vol] 8.1 mg/dL Critically low 8.5-10.1 [facility] Comment on above: Performed By: #### C MP ####[facility] [address] [phone]. Errol Flannery Chloride [Moles/Vol] 110 mmol/L Critically high 98-107 [facility] Comment on above: Performed By: #### C MP ####[facility] [address] [address]Dr. Errol Flannery CO2 [Moles/Vol] 28.0 mmol/L Normal 21.0-32.0 [facility] Comment on above: Performed By: #### C MP ####[facility] [address] [address]Dr. Errol Flannery Creatinine [Mass/Vol] 1.00 mg/dL Normal 0.55-1.02 [facility] Comment on above: Performed By: #### C MP ####[facility] [address] [address]Dr. Errol Flannery EGFR-AF NAMIBIAN >60 Normal >=60 [facility] Comment on above: Performed By: #### C MP ####[facility] [address] [address]Dr. Errol Flannery EGFR-NON AF NAMIBIAN 52 mL/min/1.73m2 Critically low >=60 [facility] Comment on above: Performed By: #### C MP ####[facility] [address] [address]Dr. Errol Flannery Globulin (S) [Mass/Vol] 2.7 g/dL Normal [facility] Comment on above: Performed By: #### C MP ####[facility] [address] [address]Dr. Errol Flannery Glucose [Mass/Vol] 88 mg/dL Normal 74-106 [facility] Comment on above: Performed By: #### C MP ####[facility] [address] [address]Dr. Errol Flannery Potassium [Moles/Vol] 3.1 mmol/L Critically low 3.5-5.1 [facility] Comment on above: Performed By: #### C MP ####[facility] [address] [address]Dr. Errol Flannery Protein [Mass/Vol] 4.9 g/dL Critically low 6.4-8.2 Th [facility] Comment on above: Performed By: #### C MP ####[facility] [address] [address]Dr. Errol Flannery Sodium [Moles/Vol] 143 mmol/L Normal 136-145 [facility] Comment on above: Performed By: #### C MP ####[facility] [address] [place] [address]Dr. Errol Flannery Urea nitrogen [Mass/Vol] 5.0 mg/dL Critically low 7.0-18.0 [facility] Comment on above: Performed By: #### C MP ####[facility] [address] [place] [address]Dr. Errol Flannery Urea nitrogen/Creatinine [Mass ratio] 5.0 mg/mg Normal [facility] Comment on above: Performed By: #### C MP ####[facility] [address] [place] [address]Dr. Errol Flannery CBC AUTO DIFFon 04-07-2022 BASO # 0.0 103/ul Normal 0.0-0.1 [facility] Comment on above: Performed By: #### L ACT #### [facility] [address] [address] [address] Errol Flannery Basophils/100 WBC (Bld) 0.7 % Normal 0.2-2.0 [facility] Comment on above: Performed By: #### L ACT #### [facility] [address] [address] [address] Errol Flannery EO # 0.1 103/ul Normal 0.0-0.7 [facility] Comment on above: Performed By: #### L ACT #### [facility] [address] [address] [address] Errol Flannery Eosinophils/100 WBC (Bld) 2.0 % Normal 0.9-7.0 [facility] Comment on above: Performed By: #### L ACT #### [facility] [address] [place] [address] Dr. Errol Flannery Erythrocyte distribution width (RBC) [Ratio] 13.6 % Normal 11.0-15.0 [facility] Comment on above: Performed By: #### L ACT #### [facility] [address] [place] [address] Dr. Errol Flannery Hematocrit (Bld) [Volume fraction] 34.3 % Critically low 36.0-48.0 [facility] Comment on above: Performed By: #### L ACT #### [facility] [address] [place] [address] Dr. Errol Flannery Hemoglobin (Bld) [Mass/Vol] 11.1 g/dL Critically low 12.0-16.0 [facility] Comment on above: Performed By: #### L ACT #### [facility] [address] [place] [address] Dr. Errol Flannery IG # 0.02 10e3/ul Normal 0.00-0.03 [facility] Comment on above: Performed By: #### L ACT #### [facility] [address] [place] [address] Dr. Errol Flannery IG % 0.4 % Normal 0.0-0.5 [facility] Comment on above: Performed By: #### L ACT #### [facility] [address] [place] [address] Dr. Errol Flannery LYMPH # 1.4 103/ul Normal 1.2-3.8 [facility] Comment on above: Performed By: #### L ACT #### [facility] [address] [place] [address] Dr. Errol Flannery Lymphocytes/100 WBC (Bld) 30.4 % Normal 20.5-60.0 [facility] Comment on above: Performed By: #### L ACT #### [facility] [address] [place] [address] Dr. Errol Flannery MANUAL DIFF REQ NO Normal [facility] Comment on above: Performed By: #### L ACT #### [facility] [address] [place] [address] Dr. Errol Flannery MCH (RBC) [Entitic mass] 30.8 pg Normal 26.7-34.0 [facility] Comment on above: Performed By: #### L ACT #### [facility] [address] [place] [address] Dr. Errol Flannery MCHC (RBC) [Mass/Vol] 32.4 g/dL Normal 29.9-35.2 [facility] Comment on above: Performed By: #### L ACT #### [facility] [address] [address] [address] Errol Flannery MCV (RBC) [Entitic vol] 95.3 fL Normal 81.0-99.0 [facility] Comment on above: Performed By: #### L ACT #### [facility] [address] [place] [address] Dr. Errol Flannery MONO # 0.4 103/ul Normal 0.3-0.8 [facility] Comment on above: Performed By: #### L ACT #### [facility] [address] [place] [address] Dr. Errol Flannery Monocytes/100 WBC (Bld) 9.3 % Normal 1.7-12.0 [facility] Comment on above: Performed By: #### L ACT #### [facility] [address] [place] [address] Dr. Errol Flannery NEUT # 2.6 103/ul Normal 1.4-6.5 [facility] Comment on above: Performed By: #### L ACT #### [facility] [address] [place] [address] Dr. Errol Flannery Neutrophils/100 WBC (Bld) 57.2 % Normal 43.0-75.0 [facility] Comment on above: Performed By: #### L ACT #### [facility] [address] [place] [address] Dr. Errol Flannery Platelet mean volume (Bld) [Entitic vol] 9.7 fL Normal 9.5-13.5 [facility] Comment on above: Performed By: #### L ACT #### [facility] [address] [place] [address] Dr. Errol Flannery PLT 220 103/ul Normal 150-450 [facility] Comment on above: Performed By: #### L ACT #### [facility] [address] [address] [address] Errol Flannery RBC 3.60 106/ul Critically low 4.20-5.40 [facility] Comment on above: Performed By: #### L ACT #### [facility] [id number] Errol Flannery WBC 4.6 103/ul Normal 4.0-11.0 [facility] Comment on above: Performed By: #### L ACT #### [facility] [address] ABD/PELV W CONon [...] ALEXANDER DUMONT Date: 2022-04-07 12:50 Normal [facility] PROF 14(COMP METB)on 04-07- 022 Albumin [Mass/Vol] 2.2 g/dL Critically low 3.4-5.0 [facility] Comment on above: Performed By: #### C MP ####[facility] [address] [place] [address]Dr. Errol Flannery Albumin/Globulin [Mass ratio] 0.8 {ratio} Normal [facility] Comment on above: Performed By: #### C MP ####[facility] [address] [place] [address]Dr. Errol Flannery ALP [Catalytic activity/Vol] 70 U/L Normal 46-116 [facility] Comment on above: Performed By: #### C MP ####[facility] [address] [place] [address]Dr. Errol Flannery ALT [Catalytic activity/Vol] 40 U/L Normal 14-59 [facility] Comment on above: Performed By: #### C MP ####[facility] [address] [place] [address]Dr. Errol Flannery Anion gap [Moles/Vol] 10.0 mmol/L Normal [facility] Comment on above: Performed By: #### C MP ####[facility] [address] [place] [address]Dr. Errol Flannery AST [Catalytic activity/Vol] 16 U/L Normal 15-37 [facility] Comment on above: Performed By: #### C MP ####[facility] [address] [place] [id number]. Errol Flannery Bilirubin [Mass/Vol] 0.4 mg/dL Normal 0.2-1.0 [facility] Comment on above: Performed By: #### C MP ####[facility] [address] [place] [id number]. Errol Flannery Calcium [Mass/Vol] 8.4 mg/dL Critically low 8.5-10.1 [facility] Comment on above: Performed By: #### C MP ####[facility] [address] [place] [id number]. Errol Flannery Chloride [Moles/Vol] 111 mmol/L Critically high 98-107 [facility] Comment on above: Performed By: #### C MP ####[facility] [address] [place], [place] [id number]. Errol Flannery CO2 [Moles/Vol] 26.3 mmol/L Normal 21.0-32.0 [facility] Comment on above: Performed By: #### C MP ####[facility] [address] [place], [place] [id number]. Errol Flannery Creatinine [Mass/Vol] 1.05 mg/dL Critically high 0.55-1.02 [facility] Comment on above: Performed By: #### C MP ####[facility] [address] [place], [place] [id number]. Errol Flannery EGFR-AF NAMIBIAN 60 mL/min/1.73m2 Normal >=60 [facility] Comment on above: Performed By: #### C MP ####[facility] [address] [place] [id number]. Errol Flannery EGFR-NON AF NAMIBIAN 50 mL/min/1.73m2 Critically low >=60 [facility] Comment on above: Performed By: #### C MP ####[facility] [address] [place], [place] [id number]. Errol Flannery Globulin (S) [Mass/Vol] 2.8 g/dL Normal [facility] Comment on above: Performed By: #### C MP ####[facility] [address] [place] [id number]. Errol Flannery Glucose [Mass/Vol] 95 mg/dL Normal 74-106 [facility] Comment on above: Performed By: #### C MP ####[facility] [address] [place] [id number]. Errol Flannery Potassium [Moles/Vol] 3.3 mmol/L Critically low 3.5-5.1 [facility] Comment on above: Performed By: #### C MP ####[facility] [address] [place] [id number]. Errol Flannery Protein [Mass/Vol] 5.0 g/dL Critically low 6.4-8.2 [facility] Comment on above: Performed By: #### C MP ####[facility] [address] [place] [address]Dr. Errol Flannery Sodium [Moles/Vol] 144 mmol/L Normal 136-145 [facility] Comment on above: Performed By: #### C MP ####[facility] [address] [place] [id number]. Errol Flannery Urea nitrogen [Mass/Vol] 10.0 mg/dL Normal 7.0-18.0 [facility] Comment on above: Performed By: #### C MP ####[facility] [address] [place] [address]Dr. Errol Flannery Urea nitrogen/Creatinine [Mass ratio] 9.5 mg/mg Normal [facility] Comment on above: Performed By: #### C MP ####[facility] [address] [place] [id number]. Errol Flannery CBC AUTO DIFFon 04-06-2022 BASO # 0.0 103/ul Normal 0.0-0.1 [facility] Comment on above: Performed By: #### C BC #### [facility] [id number] Errol Flannery Basophils/100 WBC (Bld) 0.3 % Normal 0.2-2.0 [facility] Comment on above: Performed By: #### C BC #### [facility] [address] [place] [address] Dr. Errol Flannery EO # 0.0 103/ul Normal 0.0-0.7 [facility] Comment on above: Performed By: #### C BC #### [facility] [address] [place] [address] Dr. Errol Flannery Eosinophils/100 WBC (Bld) 0.4 % Critically low 0.9-7.0 [facility] Comment on above: Performed By: #### C BC #### [facility] [address] [place] [address] Dr. Errol Flannery Erythrocyte distribution width (RBC) [Ratio] 13.6 % Normal 11.0-15.0 [facility] Comment on above: Performed By: #### C BC #### [facility] [address] [place] [address] Dr. Errol Flannery Hematocrit (Bld) [Volume fraction] 35.7 % Critically low 36.0-48.0 [facility] Comment on above: Performed By: #### C BC #### [facility] [address] [place] [address] Dr. Errol Flannery Hemoglobin (Bld) [Mass/Vol] 11.5 g/dL Critically low 12.0-16.0 [facility] Comment on above: Performed By: #### C BC #### [facility] [address] [place] [address] Dr. Errol Flannery IG # 0.03 10e3/ul Normal 0.00-0.03 [facility] Comment on above: Performed By: #### C BC #### [facility] [address] [place] [address] Dr. Errol Flannery IG % 0.4 % Normal 0.0-0.5 [facility] Comment on above: Performed By: #### C BC #### [facility] [address] [place] [address] Dr. Errol Flannery LYMPH # 1.3 103/ul Normal 1.2-3.8 [facility] Comment on above: Performed By: #### C BC #### [facility] [address] [address] [address] Errol Flannery Lymphocytes/100 WBC (Bld) 17.5 % Critically low 20.5-60.0 [facility] Comment on above: Performed By: #### C BC #### [facility] [address] [address] [address] Errol Flannery MANUAL DIFF REQ NO Normal [facility] Comment on above: Performed By: #### C BC #### [facility] [address] [place] [address] Dr. Errol Flannery MCH (RBC) [Entitic mass] 30.5 pg Normal 26.7-34.0 [facility] Comment on above: Performed By: #### C BC #### [facility] [address] [place] [address] Dr. Errol Flannery MCHC (RBC) [Mass/Vol] 32.2 g/dL Normal 29.9-35.2 [facility] Comment on above: Performed By: #### C BC #### [facility] [address] [place] [address] Dr. Errol Flannery MCV (RBC) [Entitic vol] 94.7 fL Normal 81.0-99.0 [facility] Comment on above: Performed By: #### C BC #### [facility] [address] [place] [address] Dr. Errol Flannery MONO # 0.6 103/ul Normal 0.3-0.8 [facility] Comment on above: Performed By: #### C BC #### [facility] [address] [place] [address] Dr. Errol Flannery Monocytes/100 WBC (Bld) 8.5 % Normal 1.7-12.0 [facility] Comment on above: Performed By: #### C BC #### [facility] [address] [place] [address] Dr. Errol Flannery NEUT # 5.2 103/ul Normal 1.4-6.5 [facility] Comment on above: Performed By: #### C BC #### [facility] [address] [address] [address] Errol Flannery Neutrophils/100 WBC (Bld) 72.9 % Normal 43.0-75.0 [facility] Comment on above: Performed By: #### C BC #### [facility] [address] [address] [address] Errol Flannery Platelet mean volume (Bld) [Entitic vol] 9.9 fL Normal 9.5-13.5 [facility] Comment on above: Performed By: #### C BC #### [facility] [address] [address] [address] Errol Flannery PLT 190 103/ul Normal 150-450 [facility] Comment on above: Performed By: #### C BC #### [facility] [address] [place] [address] Dr. Errol Flannery RBC 3.77 106/ul Critically low 4.20-5.40 [facility] Comment on above: Performed By: #### C BC #### [facility] [address] [place] [address] Dr. Errol Flannery WBC 7.2 103/ul Normal 4.0-11.0 [facility] Comment on above: Performed By: #### C BC #### [facility] [address] [place] [address] Dr. Errol Flannery PROF 14(COMP METB)on 022 Albumin [Mass/Vol] 2.1 g/dL Critically low 3.4-5.0 [facility] Comment on above: Performed By: #### C MP #### [facility] [address] [place] [address] Dr. Errol Flannery Albumin/Globulin [Mass ratio] 0.7 {ratio} Normal [facility] Comment on above: Performed By: #### C MP #### [facility] [address] [place] [address] Dr. Errol Flannery ALP [Catalytic activity/Vol] 74 U/L Normal 46-116 [facility] Comment on above: Performed By: #### C MP #### [facility] [address] [place], [place] [id number] Dr. Errol Flannery ALT [Catalytic activity/Vol] 52 U/L Normal 14-59 [facility] Comment on above: Performed By: #### C MP #### [facility] [address] [place] [address] Dr. Errol Flannery Anion gap [Moles/Vol] 14.0 mmol/L Normal [facility] Comment on above: Performed By: #### C MP #### [facility] [address] [address] [address] Errol Flannery AST [Catalytic activity/Vol] 24 U/L Normal 15-37 [facility] Comment on above: Performed By: #### C MP #### [facility] [address] [place] [address] Dr. Errol Flannery Bilirubin [Mass/Vol] 0.5 mg/dL Normal 0.2-1.0 [facility] Comment on above: Performed By: #### C MP #### [facility] [address] [place] [address] Dr. Errol Flannery Calcium [Mass/Vol] 8.1 mg/dL Critically low 8.5-10.1 [facility] Comment on above: Performed By: #### C MP #### [facility] [address] [place] [address] Dr. Errol Flannery Chloride [Moles/Vol] 109 mmol/L Critically high 98-107 [facility] Comment on above: Performed By: #### C MP #### [facility] [address] [place] [address] Dr. Errol Flannery CO2 [Moles/Vol] 24.6 mmol/L Normal 21.0-32.0 [facility] Comment on above: Performed By: #### C MP #### [facility] [address] [place] [address] Dr. Errol Flannery Creatinine [Mass/Vol] 0.93 mg/dL Normal 0.55-1.02 [facility] Comment on above: Performed By: #### C MP #### [facility] [address] [place] [address] Dr. Errol Flannery EGFR-AF NAMIBIAN >60 Normal >=60 [facility] Comment on above: Performed By: #### C MP #### [facility] [address] [address] [address] Errol Flannery EGFR-NON AF NAMIBIAN 57 mL/min/1.73m2 Critically low >=60 [facility] Comment on above: Performed By: #### C MP #### [facility] [address] [address] [address] Errol Flannery Globulin (S) [Mass/Vol] 3.0 g/dL Normal [facility] Comment on above: Performed By: #### C MP #### [facility] [address] [address] [address] Errol Flannery Glucose [Mass/Vol] 93 mg/dL Normal 74-106 [facility] Comment on above: Performed By: #### C MP #### [facility] [address] [address] [address] Errol Flannery Potassium [Moles/Vol] 3.6 mmol/L Normal 3.5-5.1 [facility] Comment on above: Performed By: #### C MP #### [facility] [address] [address] [address] Errol Flannery Protein [Mass/Vol] 5.1 g/dL Critically low 6.4-8.2 [facility] Comment on above: Performed By: #### C MP #### [facility] [address] [address] [address] Errol Flannery Sodium [Moles/Vol] 141 mmol/L Normal 136-145 [facility] Comment on above: Performed By: #### C MP #### [facility] [address] [address] [address] Errol Flannery Urea nitrogen [Mass/Vol] 11.0 mg/dL Normal 7.0-18.0 [facility] Comment on above: Performed By: #### C MP #### [facility] [address] [address] [address] Errol Flannery Urea nitrogen/Creatinine [Mass ratio] 11.8 mg/mg Normal [facility] Comment on above: Performed By: #### C MP #### [facility] [address] [address] [address] Errol Flannery XR ABD FLAT UP_PA [...] ALEXANDER DUMONT Date: 2022-04-06 11:49 Normal [facility] CBC AUTO DIFFon 04-05-2022 BASO # 0.0 103/ul Normal 0.0-0.1 [facility] Comment on above: Performed By: #### L ACT #### [facility] [address] [address] [address] Errol Flannery Basophils/100 WBC (Bld) 0.2 % Normal 0.2-2.0 [facility] Comment on above: Performed By: #### L ACT #### [facility] [address] [address] [address] Errol Flannery EO # 0.0 103/ul Normal 0.0-0.7 [facility] Comment on above: Performed By: #### L ACT #### [facility] [address] [address] [address] Errol Flannery Eosinophils/100 WBC (Bld) 0.1 % Critically low 0.9-7.0 [facility] Comment on above: Performed By: #### L ACT #### [facility] [address] [address] [address] Errol Flannery Erythrocyte distribution width (RBC) [Ratio] 13.6 % Normal 11.0-15.0 [facility] Comment on above: Performed By: #### L ACT #### [facility] [address] [address] [address] Errol Flannery Hematocrit (Bld) [Volume fraction] 37.1 % Normal 36.0-48.0 [facility] Comment on above: Performed By: #### L ACT #### [facility] [address] [address] [address] Errol Flannery Hemoglobin (Bld) [Mass/Vol] 11.9 g/dL Critically low 12.0-16.0 [facility] Comment on above: Performed By: #### L ACT #### [facility] [address] [address] [address] Errol Flannery IG # 0.04 10e3/ul Critically high 0.00-0.03 [facility] Comment on above: Performed By: #### L ACT #### [facility] [address] [place] [address] Dr. Errol Flannery IG % 0.4 % Normal 0.0-0.5 [facility] Comment on above: Performed By: #### L ACT #### [facility] [address] [place] [address] Dr. Errol Flannery LYMPH # 1.2 103/ul Normal 1.2-3.8 [facility] Comment on above: Performed By: #### L ACT #### [facility] [address] [place] [address] Dr. Errol Flannery Lymphocytes/100 WBC (Bld) 11.1 % Critically low 20.5-60.0 [facility] Comment on above: Performed By: #### L ACT #### [facility] [address] [address] [address] Errol Flannery MANUAL DIFF REQ NO Normal [facility] Comment on above: Performed By: #### L ACT #### [facility] [address] [place] [address] Dr. Errol Flannery MCH (RBC) [Entitic mass] 30.4 pg Normal 26.7-34.0 [facility] Comment on above: Performed By: #### L ACT #### [facility] [address] [address] [address] Errol Flannery MCHC (RBC) [Mass/Vol] 32.1 g/dL Normal 29.9-35.2 [facility] Comment on above: Performed By: #### L ACT #### [facility] [address] [address] [address] Errol Flannery MCV (RBC) [Entitic vol] 94.9 fL Normal 81.0-99.0 [facility] Comment on above: Performed By: #### L ACT #### [facility] [address] [address] [address] Errol Flannery MONO # 0.8 103/ul Normal 0.3-0.8 [facility] Comment on above: Performed By: #### L ACT #### [facility] [address] [address] [address] Errol Flannery Monocytes/100 WBC (Bld) 7.7 % Normal 1.7-12.0 [facility] Comment on above: Performed By: #### L ACT #### [facility] [address] [address] [address] Errol Flannery NEUT # 8.4 103/ul Critically high 1.4-6.5 [facility] Comment on above: Performed By: #### L ACT #### [facility] [address] [address] [address] Errol Flannery Neutrophils/100 WBC (Bld) 80.5 % Critically high 43.0-75.0 [facility] Comment on above: Performed By: #### L ACT #### [facility] [address] [address] [address] Errol Flannery Platelet mean volume (Bld) [Entitic vol] 9.4 fL Critically low 9.5-13.5 [facility] Comment on above: Performed By: #### L ACT #### [facility] [address] [address] [address] Errol Flannery PLT 197 103/ul Normal 150-450 [facility] Comment on above: Performed By: #### L ACT #### [facility] [address] [address] [address] Errol Flannery RBC 3.91 106/ul Critically low 4.20-5.40 [facility] Comment on above: Performed By: #### L ACT #### [facility] [address] [address] [address] Errol Flannery WBC 10.5 103/ul Normal 4.0-11.0 [facility] Comment on above: Performed By: #### L ACT #### [facility] [address] [address] [address] Errol Flannery PROF 14(COMP METB)on 022 Albumin [Mass/Vol] 2.4 g/dL Critically low 3.4-5.0 [facility] Comment on above: Performed By: #### C MP ####[facility] [address] [place] [address]Dr. Errol Flannery Albumin/Globulin [Mass ratio] 0.8 {ratio} Normal [facility] Comment on above: Performed By: #### C MP ####[facility] [address] [place] [address]Dr. Errol Flannery ALP [Catalytic activity/Vol] 94 U/L Normal 46-116 [facility] Comment on above: Performed By: #### C MP ####[facility] [address] [place] [address]Dr. Errol Flannery ALT [Catalytic activity/Vol] 87 U/L Critically high 14-59 [facility] Comment on above: Performed By: #### C MP ####[facility] B[address]zqca[address] [place] [address]Dr. Errol Flannery Anion gap [Moles/Vol] 8.3 mmol/L Normal [facility] Comment on above: Performed By: #### C MP ####[facility] Lizccfkiwo[address] [place] [address]Dr. Errol Flannery AST [Catalytic activity/Vol] 47 U/L Critically high 15-37 [facility] Comment on above: Performed By: #### C MP ####[facility] Br[address] [place] [address]Dr. Errol Flannery Bilirubin [Mass/Vol] 0.6 mg/dL Normal 0.2-1.0 [facility] Comment on above: Performed By: #### C MP ####[facility] [address] [place], [place] [address]Dr. Errol Flannery Calcium [Mass/Vol] 8.3 mg/dL Critically low 8.5-10.1 [facility] Comment on above: Performed By: #### C MP ####[facility] Ynsmjscsnr[address] [place], [place] [address]Dr. Errol Prudencio Chloride [Moles/Vol] 106 mmol/L Normal 98-107 [facility] Comment on above: Performed By: #### C MP ####[facility] Birdefcsmb[address] [place], [place] [address]Dr. Errol Prudencio CO2 [Moles/Vol] 29.3 mmol/L Normal 21.0-32.0 [facility] Comment on above: Performed By: #### C MP ####[facility] Mjxcvoyxcq[address] [place], [place] [address]Dr. Errol Prudencio Creatinine [Mass/Vol] 0.97 mg/dL Normal 0.55-1.02 [facility] Comment on above: Performed By: #### C MP ####[facility] Z[address]yan[address]xw[address] [place], [place] [address]Dr. Pammissy Prudencio EGFR-AF NAMIBIAN >60 Normal >=60 [facility] Comment on above: Performed By: #### C MP ####[facility] Z[address]swuknsiz[address] [place], [place] [address]Dr. Pammissy Prudencio EGFR-NON AF NAMIBIAN 54 mL/min/1.73m2 Critically low >=60 [facility] Comment on above: Performed By: #### C MP ####[facility] [address]apbq[address] [place], [place] [address]Dr. Errol Flannery Globulin (S) [Mass/Vol] 3.1 g/dL Normal [facility] Comment on above: Performed By: #### C MP ####[facility] Huiyngdcaz[address] [place], [place] [address]Dr. Errol Flannery Glucose [Mass/Vol] 100 mg/dL Normal 74-106 [facility] Comment on above: Performed By: #### C MP ####[facility] [address]bst[address] [place] [address]Dr. Errol Flannery Potassium [Moles/Vol] 3.6 mmol/L Normal 3.5-5.1 [facility] Comment on above: Performed By: #### C MP ####[facility] [address]hy[address] [place] [address]Dr. Errol Flannery Protein [Mass/Vol] 5.5 g/dL Critically low 6.4-8.2 [facility] Comment on above: Performed By: #### C MP ####[facility] Z[address]mdawsxxk[address] [place] [address]Dr. Errol Flannery Sodium [Moles/Vol] 140 mmol/L Normal 136-145 [facility] Comment on above: Performed By: #### C MP ####[facility] Yaherdbmxk[address] [place] [address]Dr. Errol Flannery Urea nitrogen [Mass/Vol] 15.0 mg/dL Normal 7.0-18.0 [facility] Comment on above: Performed By: #### C MP ####[facility] [address]beuw[address] [place] [address]Dr. Errol Flannery Urea nitrogen/Creatinine [Mass ratio] 15.5 mg/mg Normal [facility] Comment on above: Performed By: #### C MP ####[facility] [address]cs[address] [place] [address]Dr. Errol Flannery XR ABD FLAT_UPon 04-05-2022 XR [...] ALEXANDER DUMONT Date: 2022-04-05 07:15 Normal [facility] CBC AUTO DIFFon 04-04-2022 BASO # 0.0 103/ul Normal 0.0-0.1 [facility] Comment on above: Performed By: #### C BC #### [facility] [address] [place] [address] [address] Errol Flannery Basophils/100 WBC (Bld) 0.2 % Normal 0.2-2.0 [facility] Comment on above: Performed By: #### C BC #### [facility] [address] [place] [address] Dr. Errol Flannery EO # 0.0 103/ul Normal 0.0-0.7 [facility] Comment on above: Performed By: #### C BC #### [facility] [address] [place] [address] Dr. Errol Flannery Eosinophils/100 WBC (Bld) 0.0 % Critically low 0.9-7.0 [facility] Comment on above: Performed By: #### C BC #### [facility] [address] [place] [address] Dr. Errol Flannery Erythrocyte distribution width (RBC) [Ratio] 13.6 % Normal 11.0-15.0 [facility] Comment on above: Performed By: #### C BC #### [facility] [address] [place] [address] Dr. Errol Flannery Hematocrit (Bld) [Volume fraction] 44.1 % Normal 36.0-48.0 [facility] Comment on above: Performed By: #### C BC #### [facility] [address] [place] [address] Dr. Errol Flannery Hemoglobin (Bld) [Mass/Vol] 14.5 g/dL Normal 12.0-16.0 [facility] Comment on above: Performed By: #### C BC #### [facility] [address] [place] [address] Dr. Errol Flannery IG # 0.07 10e3/ul Critically high 0.00-0.03 [facility] Comment on above: Performed By: #### C BC #### [facility] [address] [place] [address] Dr. Errol Flannery IG % 0.4 % Normal 0.0-0.5 [facility] Comment on above: Performed By: #### C BC #### [facility] [address] [place] [address] Dr. Errol Flannery LYMPH # 1.4 103/ul Normal 1.2-3.8 [facility] Comment on above: Performed By: #### C BC #### [facility] [address] [place] [address] Dr. Errol Flannery Lymphocytes/100 WBC (Bld) 7.4 % Critically low 20.5-60.0 [facility] Comment on above: Performed By: #### C BC #### [facility] [address] [place] [address] Dr. Errol Flannery MANUAL DIFF REQ NO Normal [facility] Comment on above: Performed By: #### C BC #### [facility] [address] [place] [address] Dr. Errol Flannery MCH (RBC) [Entitic mass] 30.7 pg Normal 26.7-34.0 [facility] Comment on above: Performed By: #### C BC #### [facility] [address] [place] [address] Dr. Errol Flannery MCHC (RBC) [Mass/Vol] 32.9 g/dL Normal 29.9-35.2 [facility] Comment on above: Performed By: #### C BC #### [facility] [address] [place] [address] Dr. Errol Flannery MCV (RBC) [Entitic vol] 93.2 fL Normal 81.0-99.0 [facility] Comment on above: Performed By: #### C BC #### [facility] [address] [place] [address] Dr. Errol Flannery MONO # 1.5 103/ul Critically high 0.3-0.8 [facility] Comment on above: Performed By: #### C BC #### [facility] [address] [place] [address] Dr. Errol Flannery Monocytes/100 WBC (Bld) 7.8 % Normal 1.7-12.0 [facility] Comment on above: Performed By: #### C BC #### [facility] [address] [place] [address] Dr. Errol Flannery NEUT # 15.6 103/ul Critically high 1.4-6.5 [facility] Comment on above: Performed By: #### C BC #### [facility] [address] [place] [address] Dr. Errol Flannery Neutrophils/100 WBC (Bld) 84.2 % Critically high 43.0-75.0 [facility] Comment on above: Performed By: #### C BC #### [facility] [address] [place] [address] Dr. Errol Flannery Platelet mean volume (Bld) [Entitic vol] 9.6 fL Normal 9.5-13.5 [facility] Comment on above: Performed By: #### C BC #### [facility] [address] [place] [address] Dr. Errol Flannery PLT 260 103/ul Normal 150-450 [facility] Comment on above: Performed By: #### C BC #### [facility] [address] [place] [address] Dr. Errol Flannery RBC 4.73 106/ul Normal 4.20-5.40 [facility] Comment on above: Performed By: #### C BC #### [facility] [address] [place] [address] Dr. Errol Flannery WBC 18.5 103/ul Critically high 4.0-11.0 [facility] Comment on above: Performed By: #### C BC #### [facility] [address] [place] [address] ABD/PELV W CONon [...] LUZ DAHL Date: 2022-04-04 12:09 Normal [facility] Covid-19 PCR ([facility])on 03-19 SARS-CoV-2 (COVID-19) RNA NELLIE+probe Ql (Unsp spec) Not detected Normal NOT DETECTED [facility] Comment on above: Result Comment: When [...] for this test is supported by the [place] of Health and Human Service's declaration that [...] used). Performed By: #### L ACT #### [facility] [address] [place] [address] Dr. Errol Flannery ER URINE PROFILEon 2 Bilirubin Ql (U) Negative Normal NEGATIVE [facility] Comment on above: Performed By: #### U MICRO, ERUR #### [facility] [address] [place], [place] [address] Dr. Errol Flannery Clarity (U) SL CLOUDY Abnormal CLEAR [facility] Comment on above: Performed By: #### U MICRO, ERUR #### [facility] [address] [place] [address] [address] Errol Flannery Color (U) YELLOW Normal YELLOW [facility] Comment on above: Performed By: #### U MICRO, ERUR #### [facility] [address] [place] [address] [address] Errol JAMES A micrscopic examination will be performed if indicated. Normal [facility] Comment on above: Performed By: #### U MICRO, ERUR #### [facility] [address] [place] [address] [address] Errol Flannery Glucose Ql (U) Negative Normal NEGATIVE [facility] Comment on above: Performed By: #### U MICRO, ERUR #### [facility] [address] [place] [address] Dr. Errol Flannery Hemoglobin Ql (U) TRACE-INTACT Abnormal NEGATIVE [facility] Comment on above: Performed By: #### U MICRO, ERUR #### [facility] [address] [place] [address] Dr. Errol Flannery Ketones Ql (U) Negative Normal NEGATIVE [facility] Comment on above: Performed By: #### U MICRO, ERUR #### [facility] [address] [place] [address] Dr. Errol Flannery LEUKOCYTES TRACE Abnormal NEGATIVE [facility] Comment on above: Performed By: #### U MICRO, ERUR #### [facility] [address] [place] [address] Dr. Errol Flannery Nitrite Ql (U) Negative Normal NEGATIVE [facility] Comment on above: Performed By: #### U MICRO, ERUR #### [facility] [address] [place] [address] [address] Errol Flannery pH (U) 8.0 [pH] Normal 5-9 [facility] Comment on above: Performed By: #### U MICRO, ERUR #### [facility] [address] [place] [address] Dr. Errol Flannery SPEC GRAVITY 1.010 Normal 1.005-<=1.025 [facility] Comment on above: Performed By: #### U MICRO, ERUR #### [facility] [address] [place] [address] [address] Errol Flannery UA PROTEIN Negative Normal NEGATIVE/ TRACE [facility] Comment on above: Performed By: #### U MICRO, ERUR #### [facility] [address] [place] [address] [address] Errol Flannery UR MICRO IND INDICATED Normal [facility] Comment on above: Performed By: #### U MICRO, ERUR #### [facility] [address] [address] [address] Errol Flannery Urobilinogen Qn (U) 0.2 {Jordyn'U}/dL Normal 0.2 - 1. 0 [facility] Comment on above: Performed By: #### U MICRO, ERUR #### [facility] [address] [place] [address] Dr. Errol Flannery LACTATE/LACTIC ACIDon 2021 Lactate [Moles/Vol] 1.3 mmol/L Normal 0.4-1.9 [facility] Comment on above: Performed By: #### L ACT ####[facility] [address] [place] [address]Dr. Errol Flannery PROF 14(COMP METB)on 022 Albumin [Mass/Vol] 3.3 g/dL Critically low 3.4-5.0 Th [facility] Comment on above: Performed By: #### C BC #### [facility] [address] [place] [address] Dr. Errol Flannery Albumin/Globulin [Mass ratio] 0.9 {ratio} Normal [facility] Comment on above: Performed By: #### C BC #### [facility] [address] [place] [address] [address] Errol Flannery ALP [Catalytic activity/Vol] 109 U/L Normal 46-116 [facility] Comment on above: Performed By: #### C BC #### [facility] [address] [place] [address] Dr. Errol Flannery ALT [Catalytic activity/Vol] 40 U/L Normal 14-59 [facility] Comment on above: Performed By: #### C BC #### [facility] [address] [place] [address] [address] Errol Flannery Anion gap [Moles/Vol] 10.4 mmol/L Normal [facility] Comment on above: Performed By: #### C BC #### [facility] [address] [place] [address] [address] Errol Flannery AST [Catalytic activity/Vol] 34 U/L Normal 15-37 [facility] Comment on above: Performed By: #### C BC #### [facility] [address] [place] [address] [address] Errol Flannery Bilirubin [Mass/Vol] 0.8 mg/dL Normal 0.2-1.0 [facility] Comment on above: Performed By: #### C BC #### [facility] [address] [place] [address] [address] Errol Flannery Calcium [Mass/Vol] 8.8 mg/dL Normal 8.5-10.1 [facility] Comment on above: Performed By: #### C BC #### [facility] [address] [place] [address] [address] Errol Flannery Chloride [Moles/Vol] 101 mmol/L Normal 98-107 [facility] Comment on above: Performed By: #### C BC #### [facility] [address] [place] [address] [address] Errol Flannery CO2 [Moles/Vol] 30.1 mmol/L Normal 21.0-32.0 [facility] Comment on above: Performed By: #### C BC #### [facility] [address] [place] [address] [address] Errol Flannery Creatinine [Mass/Vol] 1.36 mg/dL Critically high 0.55-1.02 [facility] Comment on above: Performed By: #### C BC #### [facility] [address] [place] [address] [address] Errol Flannery EGFR-AF NAMIBIAN 45 mL/min/1.73m2 Critically low >=60 [facility] Comment on above: Performed By: #### C BC #### [facility] [address] [place] [address] [address] Errol Flannery EGFR-NON AF NAMIBIAN 37 mL/min/1.73m2 Critically low >=60 [facility] Comment on above: Performed By: #### C BC #### [facility] [address] [place] [address] [address] Errol Flannery Globulin (S) [Mass/Vol] 3.6 g/dL Normal [facility] Comment on above: Performed By: #### C BC #### [facility] [address] [place] [address] [address] Errol Flannery Glucose [Mass/Vol] 107 mg/dL Critically high 74-106 [facility] Comment on above: Performed By: #### C BC #### [facility] [address] [place] [address] [address] Errol Flannery Potassium [Moles/Vol] 3.5 mmol/L Normal 3.5-5.1 [facility] Comment on above: Performed By: #### C BC #### [facility] [address] [place] [address] [address] Errol Flannery Protein [Mass/Vol] 6.9 g/dL Normal 6.4-8.2 [facility] Comment on above: Performed By: #### C BC #### [facility] [address] [place] [address] [address] Errol Flannery Sodium [Moles/Vol] 138 mmol/L Normal 136-145 [facility] Comment on above: Performed By: #### C BC #### [facility] [address] [address] [address] Errol Flannery Urea nitrogen [Mass/Vol] 18.0 mg/dL Normal 7.0-18.0 [facility] Comment on above: Performed By: #### C BC #### [facility] [address] [place] [address] Dr. Errol Flannery Urea nitrogen/Creatinine [Mass ratio] 13.2 mg/mg Normal [facility] Comment on above: Performed By: #### C BC #### [facility] [address] [place] [address] [address] Errol Flannery URINE MICROSCOPIC ONLYon BACTERIA NONE SEEN Normal NONE SEEN [facility] Comment on above: Performed By: #### U MICRO, ERUR ####[facility] [address] [place] [address]Dr. Errol Flannery Bacteria identified Cx Nom (U) NOT INDICATED Normal [facility] Comment on above: Performed By: #### U MICRO, ERUR ####[facility] [address] [place] [address]Dr. Errol Flannery CAST NONE SEEN Normal NONE SEEN [facility] Comment on above: Performed By: #### U MICRO, ERUR ####[facility] [address] [place] [address]Dr. Errol Flannery Crystals LM Nom (Urine sed) NONE SEEN Normal NONE SEEN [facility] Comment on above: Performed By: #### U MICRO, ERUR ####[facility] [address] [place] [address]Dr. Errol Flannery Epithelial cells LM Ql (Urine sed) MANY Abnormal NONE SEEN /RARE [facility] Comment on above: Performed By: #### U MICRO, ERUR ####[facility] [address] [place], [place] [address]Dr. Errol Flannery MUCOUS NONE SEEN Normal NONE SEEN [facility] Comment on above: Performed By: #### U MICRO, ERUR ####[facility] [address] [place] [address]Dr. Errol Flannery RBC 0-2 Normal 0-2 [facility] Comment on above: Performed By: #### U MICRO, ERUR ####[facility] [address] [place] [address]Dr. Errol Flannery WBC 0-2 Abnormal NONE SEEN [facility] Comment on above: Performed By: #### U MICRO, ERUR ####[facility] [address] [place] [address]Dr. Errol Flannery METHYLMALONIC ACID (MMA)on 0 01-07-2022 Methylmalonic Acid, Serum 252 nmol/L Normal 0-378 [facility] Comment on above: Performed By: #### M MA2 ####[facility] [address] [place] [id number] Flannery TSHon 12-30-2021 TSH 2.969 uIU/mL Normal 0.470-4.680 [facility] Comment on above: Performed By: #### T SH ####[facility] [address] [place] [id number] Flannery TSH RANGE SEE BELOW Normal [facility] Comment on above: Result Comment: <0.3 4 UIU/ml HYPERTHYROID 0.34-5.60 UIU/ml EUTHYROID >5.60 UIU/ml HYPOTHYROID Performed By: #### T SH ####[facility] [address] [place] [address]DrElana Flannery VIT B12 AND FOLATEon 022 Cobalamin (Vitamin B12) [Mass/Vol] 466.0 pg/mL Normal 239.0-931.0 [facility] Comment on above: Performed By: #### B 12FOL #### [facility] [address] [place] [address] [address] Errol Flannery FOLATE >20.00 Normal >=2.76 [facility] Comment on above: Performed By: #### B 12FOL #### [facility] [id number] Errol Flannery [facility] CARDIAC STRESS/REST INJE CTIONon 09-22-2021 [facility] CARDIAC STRESS/REST INJECTION Patient Name: SHAYNA GARCIA STUDY: MYOCARDIAL PERFUSION STRESS TEST WITH LEXISCAN Performing facility: [facility], [address] [place] [address], [address], [place] [id number] [facility] Provider: Keith Claire MD, FACC PCP: Dr. Martha AVINA Supervising provider: Renaldo Jennings MD, FACC INDICATION: Chest Pain; HTN Chest Pain; Chest Pain; HISTORY: Gender: F; Age: 86 y/o ; Height: 0 cm; Weight: 0 kg. HTN; Chest Pain; Denies smoking. COMPARISON: No comparison. ACCESSION NUMBER(S): [id number]; [id number]; [id number] ORDERING CLINICIAN: VASQUEZ CLAIRE TECHNIQUE: ONE DAY [...] Electronically signed by: RENALDO JENNINGS MD Normal [facility] No Panel Informationon 09-22 Normal [facility] y 250 DO Work Phone: Falls Risk Screeningon 08-17 Fall risk assessment b) One or more falls in the last year [facility] y 250 DO Work Phone: Tobacco use status CPHS b) No [facility] y 250 DO Work Phone: [...] 17Aug2021 08:58AM Heart Rate73, L Brachial Artery Amdwfhjz509, RUE, Sitting Jyzabbvnm50, RUE, Sitting Height5 ft Copnva410 lb BMI Zbgepsfico42.25 kg/m2 BSA Calculated1.7 Tobacco Useb) No Fall [...] 01-17-2019 XR hip LT min 2V(w/wo pelvis)* [facility] Main [place] [address] [place] [address] XRay Report Signed Patient: Shayna Garcia MR#: [id number] : 1935 Acct:[id number] Age/Sex: 83 / F ADM Date: 01/17/19 [place] [facility]: Type: [facility] CLI Attending Dr: Daniel Domínguez MD [...] Zechariah Arvizu M.D.01/17/2019 3:28 PM Dictation Location: [place] [address] Transcribed By: [facility] 01/17/19 1528 Dictated By: Zechariah Arvizu II, MD 01/17/19 1527 Signed By: 01/17/19 1528 Normal [facility] Vital Signs Date Time Vital Sign Value Performing Clinician Facility 08-23-2023 11:45-0500 Body height 165.1 cm Moustapha Avina Other [facility] Other 08-23-2023 11:45-0500 Body mass index (BMI) [Ratio] 24.63 kg/m2 Moustapha Ball Other [facility] Other 08-23-2023 11:45-0500 Body weight 67.13 kg Moustapha Ball Other [facility] Other 08-23-2023 11:45-0500 Diastolic blood pressure 81 mm[Hg] Moustapha Ball Other [facility] Other 08-23-2023 11:45-0500 Respiratory rate 12 /min Moustapha Ball Other [facility] Other 08-23-2023 11:45-0500 Systolic blood pressure 134 mm[Hg] Moustapha Ball Other [facility] Other 08-17-2023 09:00-0500 Body height 165.1 cm Moustapha Ball Other [facility] Other 08-17-2023 09:00-0500 Body mass index (BMI) [Ratio] 25.16 kg/m2 Moustapha Ball Other [facility] Other 08-17-2023 09:00-0500 Body weight 68.58 kg Moustapha Ball Other [facility] Other 08-17-2023 09:00-0500 Diastolic blood pressure 93 mm[Hg] Moustapha Ball Other [facility] Other 08-17-2023 09:00-0500 Respiratory rate 12 /min Moustapha Ball Other [facility] Other 08-17-2023 09:00-0500 Systolic blood pressure 158 mm[Hg] Moustapha Ball Other [facility] Other 12-21-2022 11:30-0400 Body height 165.1 cm Moustapha Ball Other [facility] Other 12-21-2022 11:30-0400 Body mass index (BMI) [Ratio] 25.19 kg/m2 Moustapha Ball Other [facility] Other 12-21-2022 11:30-0400 Body weight 68.68 kg Moustapha Ball Other [facility] Other 12-21-2022 11:30-0400 Diastolic blood pressure Moustapha Ball Other [facility] Other 12-21-2022 11:30-0400 Respiratory rate 16 /min Moustapha Ball Other [facility] Other 12-21-2022 11:30-0400 Systolic blood pressure 112 mm[Hg] Moustapha Ball Other [facility] Other 11-24-2022 09:27-0500 Blood Pressure Location KEIKO ROCK [facility] 11-24-2022 09:27-0500 Diastolic blood pressure 86 mm[Hg] KEIKO LEX [facility] 11-24-2022 09:27-0500 Heart rate 70 /min KEIKO LEX [facility] 11-24-2022 09:27-0500 Systolic blood pressure 127 mm[Hg] KEIKO LEX [facility] 11-23-2022 10:00-0500 Body height 165.1 cm Margarito Harvey Other [place] [facility] Other 11-23-2022 10:00-0500 Body mass index (BMI) [Ratio] 31.61 kg/m2 Margarito Harvey Other [facility] Other 11-23-2022 10:00-0500 Body weight 86.18 kg Margarito Harvey Other [facility] [employer] Other 11-23-2022 10:00-0500 Diastolic blood pressure 96 mm[Hg] Margarito Brucey Other [facility] [employer] Other 11-23-2022 10:00-0500 Systolic blood pressure 152 mm[Hg] Margarito Harvey Other [facility] [employer] Other 09-22-2022 08:22-0500 Blood Pressure Location Cassidy Lue [facility] 09-22-2022 08:22-0500 Diastolic blood pressure 83 mm[Hg] Cassidy Lue [facility] 09-22-2022 08:22-0500 Heart rate 70 /min Cassidy Lue [facility] 09-22-2022 08:22-0500 Respiratory rate 16 /min Cassidy Lue [facility] 09-22-2022 08:22-0500 Systolic blood pressure 130 mm[Hg] Cassidy Lue [facility] 09-22-2021 12:00-0500 74 1 Moustapha Avina Work Phone: [facility] [place] Work Phone: Comment on above: [id number] 08-17-2021 08:58-0500 Body height 152.4 cm Moustapha Beth Ball Work Phone: [facility] 250 DO Work Phone: 08-17-2021 08:58-0500 Body mass index (BMI) [Ratio] 31.25 kg/m2 Moustapha Beth Ball Work Phone: [facility] [employer] 250 DO Work Phone: 08-17-2021 08:58-0500 Body surface area Derived from formula 1.7 m2 Moustapha Beth Ball Work Phone: [facility] [employer] 250 DO Work Phone: 08-17-2021 08:58-0500 Body weight 72.58 kg Moustapha Beth Ball Work Phone: [facility] [employer] 250 DO Work Phone: 08-17-2021 08:58-0500 Diastolic blood pressure 84 mm[Hg] Moustapha Beth Ball Work Phone: [facility] [employer] 250 DO Work Phone: 08-17-2021 08:58-0500 Heart rate 73 /min Moustapha Beth Ball Work Phone: [facility] [employer] 250 DO Work Phone: 08-17-2021 08:58-0500 Systolic blood pressure 136 mm[Hg] Moustapha Avina Work Phone: [facility] [employer] 250 DO Work Phone: Encounters Encounter Date Encounter Type Care Provider Facility Start: 11-27-2024 ambulatory KEIKO ROCK Facili ty:[facility] Start: 11-22-2023 End: 11-23-2023 ambulatory KEIKO ROCK Facility:[facility] Start: 10-17-2023 End: 10-17-2023 ambulatory Moustapha Avina Other [employer] Other Start: 10-17-2023 Telephone encounter [facility] Start: 08-25-2023 End: 08-25-2023 ambulatory Moustapha Avina Other [employer] Other Start: 08-25-2023 Telephone encounter Moustapha Avina [facility] Start: 08-23-2023 End: 08-23-2023 ambulatory Moustapha Avina Other [employer] Other Start: 08-23-2023 Office outpatient visit 15 minutes Moustapha Avina [facility] Start: 08-22-2023 End: 08-22-2023 ambulatory Moustapha Avina Other [employer] Other Start: 08-22-2023 Telephone encounter Moustapha Avina [facility] Start: 08-17-2023 End: 08-17-2023 ambulatory Moustapha Avina Other [employer] Other Start: 08-17-2023 Patient encounter procedure Moustapha Avina [facility] Start: 07-10-2023 End: 07-10-2023 ambulatory Moustapha Avina Other [employer] Other Start: 07-10-2023 Telephone encounter Moustapha Avina [facility] Start: 05-09-2023 End: 05-09-2023 ambulatory Moustapha Avina Other [employer] Other Start: 05-09-2023 Telephone encounter Moustapha Avina [facility] Start: 05-04-2023 End: 05-05-2023 ambulatory Cassidy Parks Facility:[facility] Start: 01-25-2023 End: 01-25-2023 ambulatory Moustapha Avina Other [employer] Other Start: 01-25-2023 Telephone encounter Moustapha ANGUIANO [facility] [employer] Start: 12-21-2022 End: 12-21-2022 ambulatory Moustapha Avina Other [employer] Other Start: 12-21-2022 Office outpatient visit 25 minutes Moustapha Avina [facility] Start: 11-24-2022 End: 11-25-2022 ambulatory KEIKO ROCK Facility:[facility] Start: 11-24-2022 End: 11-24-2022 Patient encounter procedure KEIKO ROCK [facility] Start: 11-23-2022 End: 11-23-2022 ambulatory Margarito Harvey Other [employer] Other Start: 11-23-2022 [facility] visit new patient Margarito Harvey [facility] Start: 11-11-2022 End: 11-11-2022 ambulatory Moustapha Avina Other [employer] Other Start: 11-11-2022 Telephone encounter Moustapha Avina Micaela Avina [facility] Start: 10-15-2022 End: 10-16-2022 ambulatory CASSIDY Huitron Facility:[facility] Start: 09-22-2022 End: 09-22-2022 Lab Drop off Cassidy Parks [facility] Start: 09-22-2022 End: 09-22-2022 Patient encounter procedure Cassidy Parks [facility] Start: 06-08-2022 End: 06-09-[address] MOUSTAPHA AVINA Facility:[facility] Start: 05-21-2022 End: 05-22-[address] MOUSTAPHA AVINA Facility:[facility] Start: 04-28-2022 End: 04-29-[address] MOUSTAPHA AVINA Facility:[facility] Start: 04-06-2022 Adult health examination Moustapha Avina Other [employer] Other Start: 04-04-2022 End: 04-12-2022 Evaluation and management of inpatient DR NAEL SULLIVAN Facility:[facility] Start: 12-30-2021 End: 12-31-[address] ALEXANDER URIBE Facility:[facility] Start: 11-09-2021 End: 11-10-[address] MOUSTAPHA AVINA Facility: Start: 09-24-2021 Chart Update Moustapha Beth Bal l Work Phone: [facility] 250 DO Work Phone: Start: 09-22-2021 Patient encounter procedure Moustapha Avina Work Phone: [facility] [place] Work Phone: Start: 08-17-2021 Office outpatient visit 25 minutes Moustapha Avina Work Phone: [facility] 250 DO Work Phone: Start: 01-17-2019 End: 01-17-2019 Patient encounter procedure Moustapha Avina Facility:[facility] Procedures Date Procedure Procedure Detail Performing [...] Vasquez Claire, Status: Pen, Time: 12:50 PM [facility] 250 DO Work Phone: Start: 09-22-2021 STRESS NUC, Provider : SHARYN HHVI NUCLEAR 01,[id number], Status: Pen, Time: 12:00 PM STRESS NUC, Provider: SHARYN HHVI NUCLEAR 01,[id number], Status: Pen, Time: 12:00 PM [facility] DO Work Phone: Immunizations Immunization Date Immunization Notes Care Provider Ezekiel yagn 08-17-2023 influenza, high dose seasonal, preservative-free Moustapha Avina Other [employer] Other 07-17-2021 influenza virus vaccine, unspecified formulation KEIKOJACEY ROCK [facility] 07-17-2021 influenza, high dose seasonal, preservative-free [facility]oustapha Kirit [facility] Work Phone: Comment on above: Series: 06-24-2021 influenza virus vaccine, split virus (incl. purified surface antigen) Moustapha Avina Other [employer] Other 03-13-2021 tetanus and diphther ia toxoids, adsorbed, preservative free, for adult use (5 Lf of tetanus toxoid and 2 Lf of diphtheria toxoid) Moustapha Avina Other [employer] Other 02-17-2021 pneumococcal polysaccharide vaccine, 23 valent Moustapha Avina Other [employer] Other 06-04-2020 influenza virus vaccine, split virus (incl. purified surface antigen) Moustapha Avina Other [employer] Other 06-04-2020 influenza virus vaccine, unspecified formulation KEIKO ROCK [facility] 06-04-2020 influenza, high dose seasonal, preservative-free Moustapha Avina Work Phone: [facility] 250 DO Work Phone: 02-15-2020 pneumococcal conjuga te vaccine, 13 valent Moustapha Avina Work Phone: [facility] 03-16-2017 diphtheria, tetanus toxoids and acellular pertussis vaccine, unspecified formulation Moustapha Avina Other [employer] Other 01-17-2015 zoster vaccine, live Joseejacquelin олег Daniela Other [employer] Other Payers Date Payer Category Payer Self-pay 2011 Medicare [id number] 1959 Medicare [id number] 1959 Unknown [id number] 1934 Unknown [id number] 2.16.84 [id number] 1934 Unknown [id number] 2.16.84 [id number] 1934 Unknown [id number] 2.16.84 [id number] 1934 Unknown [id number] 2.16.84 [id number] 1934 Unknown [id number] 2.16.84 [id number] 1934 Unknown [id number] 2.16.84 [id number] 1934 Unknown [id number] 2.16.84 [id number] 1934 Unknown [id number] 2.16.8 [id number] 1934 Unknown [id number] 2.16.8 [id number] 1934 Unknown [id number] 2.16.8 [id number] 1934 Unknown [id number] 2.16.8 [id number] Unknown [id number] 2.16.84 [id number] Unknown Social History Date Type Detail Facility No illicit drug use No illicit drug use [email or web address] 250 DO Work Phone: Start: 09-22-2022 Tobacco smoking status Never s moked tobacco (finding) [facility] Sex Assigned At Female [facility] Functional Status Date Assessment Result Facility 11-24-2022 Functional Status N/A [facility] 09-22-2022 Functional Status N/A [facility] Clinical Notes 11-09-2021 to 08-23-2023 Note [...] adequate fluid balance and to avoid dehydration. [employer] Other 12-05-2023 History general Narrative - Reported* [...] History DIVERTICULITIS 2021 Hospitalization History see above [facility] Other 11-29-2023 Evaluation note* Encounter Date Diagnosis [...] Ensure daily Check CBC, BS, Hepatic enzymes [employer] Other 11-29-2023 History general Narrative - Reported* [...] History DIVERTICULITIS 2021 Hospitalization History see above [facility] Other 10-25-2023 History general Narrative - Reported* [...] History DIVERTICULITIS 2021 Hospitalization History see above [facility] Other 08-21-2023 Evaluation note* Encounter Date Diagnosis Assessment Notes Treatment Notes Treatment Clinical Notes Apr, Acute cystitis without hematuria (ICD-10 - N30.00) [facility] Other 04-04-2023 Evaluation note* Encounter Date Diagnosis [...] to evaluate for FB in right EAC [facility] Other 03-08-2023 Hospital Discharge instructions Patient Education [...] symptoms are. Treatment may include: Using an nmmw-aiz-mkfebaj vaginal lubricant before sex. Using a long-acting [...] Follow these instructions at home: Medicines Take puyv-hdy-knvjkwt and prescription medicines only as told by your health care provider. Do not use herbal or alternative medicines unless your health care provider says that you can. Use gmpv-qsg-lcdwswc creams, lubricants, or moisturizers for dryness only [...] 01/20/2016 Document Revised: 08/18/2018 Document Reviewed: 06/01/2018 [employer] Patient Education 2020 [employer] Follow Up Care 09/22/2022 09:57:43 With:LEX HARRY, KEIKO Beth, URL Address: When:1 year [facility] 03-07-2023 Evaluation note* Encounter Date Diagnosis Assessment Notes Treatment Notes Treatment Clinical Notes Nov, Constipation (ICD-10 - K59.00) PATIENT TO START ON A MIRALAX DAILY, TITRATION DOSAGE. 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 Follow Up Care 08/24/2022 11:34:30 With:Charly TODD, GEETHA Hillman, URO Address: [address] [address] [phone] When:Within 2 Month(s) [facility] 09-02-2022 NotePROCEDURE: XR GI UPPER AIR [...] No gastroesophageal reflux Electronically authenticated by: GENO PIZRARO Date: 2022-05-21 10:11[facility]09-02-2022 NotePROCEDURE: XR GI UPPER AIR KUB DUAL [...] Electronically authenticated by: GENO PIZARRO Date: 2022-05-21 10:11[facility]02-21-2022 NotePROCEDURE: XR HIP LT 2 3V W [...] Electronically authenticated by: ALEXANDER DUMONT Date: 2021-11-09 17:46[facility] Future Appointments Appointment Date:11/24/2022 08:45:00 AM Scheduled Provider:Cassidy Parks MD Location:[facility] Appointment Type:URO Office Visit [facility] evaluation + Plan note Future Appointments Appointment Date:11/24/2022 08:45:00 AM Scheduled Provider:Cassidy Parks MD Location:[facility] Appointment Type:URO Office Visit Diagnostic Tests Pending * [facility]ments Appointment Date:11/22/2023 08:30:00 AM Scheduled Provider:KEIKO ROCK PA-C Location:[facility] Appointment Type:URO Office Visit [facility] evaluation noteNo Information [facility] [place] [employer] Other History general Narrative - Reported* Type [...] History DIVERTICULITIS 2021 Hospitalization History see above [employer] Other History of Present illness NarrativePatient returns [...] [facility] Work Phone: Hospital course Narrative No data available for this section [facility] Hospital Discharge instructions No data available for this section [facility] No data available for this section [facility] reason for visit Narrativewants referral to home health care and therapyN[place] [employer] [employer] Other Summary Purpose Family History No Family [...] t ear, initial encounter (T16.1XXA) Referral Organization [facility] Audra sebastian Referring Provider First Name Moustapha Referring Provider Last Name Daniela Referring Provider Specialty Internal Me dicine Referred Provider Tana Woodall Referred Provider Specialty Ear, Nose an d Throat Referral Priority Routine Additional Source Comments INFORMATION SOURCE (unrecogn ized section and content) DATE CREATED AUTHOR 02/01/2019 [facility] DATE CREATED AUTHOR AUTHOR'S ORGANIZ ATION 08/18/2021 [employer] DATE CREATED AUTHOR AUTHOR'S ORGANIZ ATION 09/24/2021 [facility] DATE CREATED AUTHOR AUTHOR'S ORGANIZ ATION 10/20/2022 [facility] DATE CREATED AUTHOR AUTHOR'S ORGANIZ ATION 11/23/2023 Marie Valerio [facility] Patient Care team informatio n (unrecognized section and content) Personnel Name: MOUSTAPHA AVINA DO Address: Address: [address] [facility] [place], [address] Name: Brandin Plumber Maintenance, Christel Name: JuanhansaChasity Personnel Name: MOUSTAPHA VAINA DO Address: Address: [address] Name: Brandin Plumber Maintenance, Christel Name: MosestorreyChasity Personnel Name: MOUSTAPHA AVINA DO Address: Address: [address] [facility] [place], [address] Name: Brandin Plumber Maintenance, Christel Name: Kwabena Chasity REASON FOR VISIT [...] BE BASED ON THE PRIMARY CLINICAL RECORDS. [employer] provides no warranty or guarantee of the accuracy or completeness of information in this document.
[2024-01-16 07:55] LABS: Ammonia 20 umol/L (11-32)
[2024-01-16 08:15] LABS: Alanine Aminotransferase 204 U/L (14-59); Albumin Globulin Ratio 0.4; Albumin Level 1.8 g/dL (3.4-5.0); Alkaline Phosphatase 401 U/L (46-116); Anion Gap 10.5; Aspartate Amino Transferase 144 U/L (15-37); BUN Creatinine Ratio 12.7; Bilirubin Total 0.4 mg/dL (0.2-1.0); Calcium 8.3 mg/dL (8.5-10.1); Carbon Dioxide 27.4 mmol/L (21.0-32.0); Chloride 106 mmol/L (98-107); Estimated GFR (African America 57 (>=60); Estimated GFR (Non-African Ame 47 (>=60); Globulin 4.1 g/dL; Glucose 95 mg/dL (74-106); Potassium 3.9 mmol/L (3.5-5.1); Sodium 140 mmol/L (136-145); Total Protein 5.9 g/dL (6.4-8.2)
== END 2024-01-16 05:39 | disposition home or self-care (01) ==
LOC: LAB 05:38
PROVIDERS: PCP Internal Medicine
DX: E72.20 Disorder of urea cycle metabolism, unspecified (principal)
CPT/HCPCS: 36415; 80053; 82140

== ENCOUNTER 2024-02-09 10:20 | Outpatient (REF) | payer MEDICARE, SELFPAY ==
[2024-02-09 10:36] LABS: Basophils Percent Auto 0.6 % (0.2-2.0); Hematocrit 39.3 % (36.0-48.0); Hemoglobin 12.3 g/dL (12.0-16.0); Immature Granulocytes Abs Auto 0.01 10^3/uL (0.00-0.03); Immature Granulocytes Pct Auto 0.3 % (0.0-0.5); Lymphocytes Absolute Auto 1.5 10^3/uL (1.2-3.8); Lymphocytes Percent Auto 46.3 % (20.5-60.0); Mean Corpuscular HGB Conc 31.3 g/dL (29.9-35.2); Mean Corpuscular Hemoglobin 28.9 pg (26.7-34.0); Mean Corpuscular Volume 92.5 fL (81.0-99.0); Mean Platelet Volume 9.4 fL (9.5-13.5); Monocytes Absolute Auto 0.4 10^3/uL (0.3-0.8); Neutrophils Absolute Auto 1.2 10^3/uL (1.4-6.5); Neutrophils Percent Auto 38.8 % (43.0-75.0); Platelet Count 220 10^3/uL (150-450); Red Blood Count 4.25 10^6/uL (4.20-5.40); Red Cell Distribution Width 14.3 % (11.0-15.0); White Blood Count 3.2 10^3/uL (4.0-11.0)
[2024-02-09 12:20] LABS: Percent Iron Saturation 27.3 %
[2024-02-09 12:32] LABS: Alanine Aminotransferase 29 U/L (14-59); Albumin Globulin Ratio 0.7; Alkaline Phosphatase 170 U/L (46-116); Anion Gap 14.6; Aspartate Amino Transferase 28 U/L (15-37); BUN Creatinine Ratio 18.4; Bilirubin Total 0.5 mg/dL (0.2-1.0); Calcium 9.2 mg/dL (8.5-10.1); Carbon Dioxide 24.6 mmol/L (21.0-32.0); Chloride 104 mmol/L (98-107); Estimated GFR (African America >60 (>=60); Estimated GFR (Non-African Ame 50 (>=60); Globulin 4.1 g/dL; Glucose 88 mg/dL (74-106); Potassium 4.2 mmol/L (3.5-5.1); Sodium 139 mmol/L (136-145); Total Protein 7.1 g/dL (6.4-8.2)
== END 2024-02-09 10:21 | disposition home or self-care (01) ==
LOC: LAB 10:20
PROVIDERS: PCP Internal Medicine; Visit Provider Internal Medicine
DX: D64.9 Anemia, unspecified (principal); N18.9 Chronic kidney disease, unspecified; I12.9 Hypertensive chronic kidney disease with stage 1 through stage 4 chronic kidney disease, or unspecified chronic kidney disease
CPT/HCPCS: 36415; 80053; 82607; 82728; 82746; 83540; 83550; 85025

== ENCOUNTER 2024-03-07 11:30 | Outpatient (OUT) | payer MEDICARE, SELFPAY ==
--- OUTSIDE RECORDS SUMMARY | 2024-03-07 11:47 | XMS_ITS | CCD ---
Author Organization [facility] Care Team Providers Care Rn Birthing Name Role Phone Moustapha Avina Primary Care Unavailable Daniel Domínguez Attending Unavailable Daniel Domínguez Admitting Unavailable Moustapha Avina Unavailable Unavailable Unavailable MOUSTAPHA AVINA Primary Care Physician [phone] Christel Ghotra Unavailable Unavailable Chasity Yuan Unavailable Unavailable NATE, DR NAYAK Attending Unavailable DANIELA, DR JACINTO Primary Care Unavailable NATE, DR NAYAK Consulting Unavailable NATE, DR NAYAK Admitting Unavailable ZIEBCARMEN, DR ALEXANDER [...] Unavailable DANIELA, DR JACINTO Primary Care Unavailable TATI, IRINA Consulting Unavailable TATI, IRINA Admitting Unavailable IRINA DUFFY Attending Unavailable GENO LAU Consulting Unavailable Moustapha Avina Unavailable Pita Harveyn Unavailable KEIKO ROCK Attending Unavailable KEIKO ROCK Attending Unavailable KEIKO ROCK Attending Unavailable Cassidy Parks Attending Unavailable ALEXI COLEMAN Attending Unavailable JORGE LUNA Attending Unavailable Allergies Allergy Classification Reported Allergen(s) Allergy Type Date of Onset Reaction(s) Facility (2 sources) patient allergy list reviewed by nurse or physicia Propensity to adverse reactions Comment:Done Tencent Other (1 source) No Known Medication Allergies; Translations: [No Known Medication Allergies] Propensity to adverse reactions (disorder) [facility] Repository Medications Current Medications Medication Drug Class(es) Dates Sig (Normalized) Sig (Original) amoxicillin 875 mg / clavulanate 125 mg oral tablet (3 sources) Penicillin-class Antibacterial Start: 08-23-2023 take 1 tablet by mouth every twelve hours Amoxicillin-Pot Clavulanate 875-125 MG 1 tablet Orally every 12 hrs for 7 days Aug, Active aspirin 81 mg delayed release oral tablet (1 source) Platelet Aggregation Inhibitor, Nonsteroidal Anti-inflammatory Drug Start: 01-25-2024 take 81 mg by mouth once daily Aspirin Active 81 MG PO Daily January 25, 2024 12:00am donepezil hydrochloride 10 mg oral tablet (15 sources) Start: 01-25-2024 take 10 mg by mouth once daily at bedtime Donepezil Active 10 MG PO Daily at bedtime January 25, 2024 12:00am Start: 09-22-2022 donepezil 10 m g Tab Refills(s) 0 Start Date: 09/22/22 Status: [...] for 1 month, then 2x/week there after, [facility]/pharmacy #[id number], 158, cm, 09/22/22 8:59:00 EST, Height/Length Dosing, 63.5, kg, 09/22/22 8:59:00 EST, Weight Dosing Start Date: 09/22/22 Status: Ordered Lactulose (2 sources) Osmotic Laxative Start: 02-07-2024 take 10 g by mouth once daily Lactulose Active 10 GM PO Daily 450 30 February 07, 2024 12:00am Start: 01-25-2024 take 20 g by mouth twice daily Lactulose Active 20 GM PO Twice daily January 25, 2024 12:00am lisinopril 20 mg oral tablet (15 sources) Angiotensin Converting Enzyme Inhibitor Start: 01-25-2024 take 20 mg by mouth once daily Lisinopril Active 20 MG PO Daily January 25, 2024 12:00am Start: 09-22-2022 lisinopril 10 mg Tab Refills(s) 0 Start Date: 09/22/22 Status: Ordered take 1 tablet by nadja th every twenty-four hours Lisinopril 20 MG 1 tablet Orally Once a day for 90 days Active memantine hydrochloride 5 mg oral tablet (15 sources) Y-cwsoex-Z-aspartate Receptor Antagonist Start: 01-25-2024 take 5 mg by mouth once daily Memantine Active 5 MG PO Daily January 25, 2024 12:00am Start: 09-22-2022 memantine 5 mg Tab Refills(s) [...] Palpitations; Translations: [Palpitations] Episodic Chronic kidney disease (18 sources) Chronic kidney disease; Translations: [Chronic kidney disease stage 3A ] Onset: 09-23-2021 09-21-2022 Chronic Delirium, dementia, and amnestic and other cognitive disorders (4 sources) Vascular dementia without behavioral disturbance; Translations: [Vascular dementia without behavioral disturbance] 02-05-2024 Chronic Diseases of white blood cells (1 [...] cysts; 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] 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-2023 Chronic Genitourinary symptoms and ill-defined conditions (8 [...] of left artificial hip joint] Chronic Other diseases of kidney and ureters (1 source) Renal mass; Translations: [Other specified disorders of kidney and ureter] 02-05-2024 Chronic Other diseases of kidney and ureters (1 source) Other specified disorders of kidney and ureter; Translations: [Unspecified disorder of kidney and ureter] 02-07-2024 Chronic Other ear and sense organ disorders [...] weight loss; Translations: [Abnormal weight loss] Episodic Pancreatic disorders (not diabetes) (2 sources) Cyst of pancreas; Translations: [Cyst of pancreas] 02-05-2024 Episodic Ivonne-; endo-; and myocarditis; cardiomyopathy (except [...] 2 Episodic Other aftercare (1 source) Other intermediate (current) drug therapy; Translations: [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] Onset: 2 Episodic Other aftercare (1 source) 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) use of anticoagulants; Translations: [CARE HOME CURRNT USE ANTICOAGULANTS] Onset: 2 Episodic Other [...] Test Name Value Interpretation Reference Range Facility Estimated glomerular filtrat ion rate (GFR) non- Americanon 01-16-2024 GFR/1.73 sq M.predicted among non-blacks MDRD (S/P/Bld) [Vol rate/Area] 47 mL/min/{1.73_m2} >=60 [facility] Globulin Calc (S) [Mass/Vol] on 01-16-2024 Globulin (S) [Mass/Vol] 4.1 g/dL [facility] - Chemistry and C hemistry - challengeon 01-16-2024 Albumin [Mass/Vol] 1.8 g/dL 3.4-5.0 [facility] ALP [Catalytic activity/Vol] 401 U/L 46-116 [facility] ALT [Catalytic activity/Vol] 204 U/L 14-59 [facility] Ammonia (P) [Moles/Vol] 20 umol/L 11-32 [facility] AST [Catalytic activity/Vol] 144 U/L 15-37 [facility] Bilirubin [Mass/Vol] 0.4 mg/dL 0.2-1.0 [facility] Calcium [Mass/Vol] 8.3 mg/dL 8.5-10.1 [facility] Chloride [Moles/Vol] 106 mmol/L 98-107 [facility] CO2 [Moles/Vol] 27.4 mmol/L 21.0-32.0 [facility] Creatinine [Mass/Vol] 1.10 mg/dL 0.55-1.02 [facility] GFR/1.73 sq M.predicted MDRD (S/P/Bld) [Vol rate/Area] 57 mL/min/{1.73_m2} >=60 [facility] Glucose [Mass/Vol] 95 mg/dL 74-106 [facility] Potassium [Moles/Vol] 3.9 mmol/L 3.5-5.1 [facility] Protein [Mass/Vol] 5.9 g/dL 6.4-8.2 [facility] Sodium [Moles/Vol] 140 mmol/L 136-145 [facility] Urea nitrogen [Mass/Vol] 14.0 mg/dL 7.0-18.0 [facility] Urea nitrogen/Creatinine [Mass ratio] 12.7 mg/mg [facility] Serum or plasma albumin/glob ulin mass ratioon 01-16-2024 Albumin/Globulin [Mass ratio] 0.4 {ratio} [facility] Serum or plasma anion gap de terminationon 01-16-2024 Anion gap [Moles/Vol] 10.5 mmol/L [facility] Basophils Auto (Bld) [#/Vol] on 01-14-2024 Basophils (Bld) [#/Vol] 0.1 10 3/uL 0.0-0.1 [facility] Basophils/100 WBC Auto (Bld) on 01-14-2024 Basophils/100 WBC (Bld) 1.0 % 0.2-2.0 [facility] Eosinophils/100 WBC Auto (Bl d)on 01-14-2024 Eosinophils/100 WBC (Bld) 0.2 % 0.9-7.0 [facility] Erythrocyte distribution wid th Auto (RBC) [Ratio]on 01-14-2024 Erythrocyte distribution width (RBC) [Ratio] 14.6 % 11.0-15.0 [facility] Estimated glomerular filtrat ion rate (GFR) non- Americanon 01-14-2024 GFR/1.73 sq M.predicted among non-blacks MDRD (S/P/Bld) [Vol rate/Area] 48 mL/min/{1.73_m2} >=60 [facility] Globulin Calc (S) [Mass/Vol] on 01-14-2024 Globulin (S) [Mass/Vol] 3.8 g/dL [facility] Hematocrit Auto (Bld) [Volum e fraction]on 01-14-2024 Hematocrit (Bld) [Volume fraction] 34.7 % 36.0-48.0 [facility] Hemoglobin [Mass/volume] in Bloodon 01-14-2024 Hemoglobin (Bld) [Mass/Vol] 11.2 g/dL 12.0-16.0 [facility] - Chemistry and C hemistry - challengeon 01-14-2024 Albumin [Mass/Vol] 1.9 g/dL 3.4-5.0 [facility] ALP [Catalytic activity/Vol] 354 U/L 46-116 [facility] ALT [Catalytic activity/Vol] 238 U/L 14-59 [facility] Ammonia (P) [Moles/Vol] 27 umol/L 11-32 [facility] AST [Catalytic activity/Vol] 243 U/L 15-37 [facility] Bilirubin [Mass/Vol] 0.5 mg/dL 0.2-1.0 [facility] Calcium [Mass/Vol] 7.9 mg/dL 8.5-10.1 [facility] Chloride [Moles/Vol] 109 mmol/L 98-107 [facility] CO2 [Moles/Vol] 24.2 mmol/L 21.0-32.0 [facility] Creatinine [Mass/Vol] 1.08 mg/dL 0.55-1.02 [facility] GFR/1.73 sq M.predicted MDRD (S/P/Bld) [Vol rate/Area] 58 mL/min/{1.73_m2} >=60 [facility] Glucose [Mass/Vol] 112 mg/dL 74-106 [facility] Potassium [Moles/Vol] 3.6 mmol/L 3.5-5.1 [facility] Protein [Mass/Vol] 5.7 g/dL 6.4-8.2 [facility] Sodium [Moles/Vol] 142 mmol/L 136-145 [facility] Urea nitrogen [Mass/Vol] 11.0 mg/dL 7.0-18.0 [facility] Urea nitrogen/Creatinine [Mass ratio] 10.2 mg/mg [facility] - Hematology and Cell countson 01-14-2024 Immature granulocytes/100 WBC (Bld) 0.6 % 0.0-0.5 [facility] Leukocytes [#/volume] correc emile for nucleated erythrocytes in Blood by Automated counon 01-14-2024 WBC corrected for nucl RBC Auto (Bld) [#/Vol] 5.2 10 3/uL 4.0-11.0 [facility] Lymphocytes Auto (Bld) [#/Vo l]on 01-14-2024 Lymphocytes (Bld) [#/Vol] 3.5 10 3/uL 1.2-3.8 [facility] Lymphocytes/100 WBC Auto (Bl d)on 01-14-2024 Lymphocytes/100 WBC (Bld) 67.1 % 20.5-60.0 [facility] MCH Auto (RBC) [Entitic mass ]on 01-14-2024 MCH (RBC) [Entitic mass] 29.7 pg 26.7-34.0 [facility] MCHC Auto (RBC) [Mass/Vol]on 01-14-2024 MCHC (RBC) [Mass/Vol] 32.3 g/dL 29.9-35.2 [facility] MCV Auto (RBC) [Entitic vol] on 01-14-2024 MCV (RBC) [Entitic vol] 92.0 fL 81.0-99.0 [facility] Monocytes Auto (Bld) [#/Vol] on 01-14-2024 Monocytes (Bld) [#/Vol] 0.3 10 3/uL 0.3-0.8 [facility] Monocytes/100 WBC Auto (Bld) on 01-14-2024 Monocytes/100 WBC (Bld) 5.9 % 1.7-12.0 [facility] Neutrophils Auto (Bld) [#/Vo l]on 01-14-2024 Neutrophils (Bld) [#/Vol] 1.3 10 3/uL 1.4-6.5 [facility] Neutrophils/100 WBC Auto (Bl d)on 01-14-2024 Neutrophils/100 WBC (Bld) 25.2 % 43.0-75.0 [facility] No Panel Informationon 01-13 Eosinophils # (Auto) 0.0 10 3/uL 0.0-0.7 [facility] Immature Granulocyte # (Auto) 0.03 10 3/uL 0.00-0.03 [facility] Platelet mean volume Auto (B ld) [Entitic vol]on 01-14-2024 Platelet mean volume (Bld) [Entitic vol] 9.1 fL 9.5-13.5 [facility] Platelets Auto (Bld) [#/Vol] on 01-14-2024 Platelets (Bld) [#/Vol] 202 10 3/uL 150-450 [facility] RBC Auto (Bld) [#/Vol]on RBC (Bld) [#/Vol] 3.77 10 6/uL 4.20-5.40 [facility] Serum or plasma albumin/glob ulin mass ratioon 01-14-2024 Albumin/Globulin [Mass ratio] 0.5 {ratio} [facility] Serum or plasma anion gap de terminationon 01-14-2024 Anion gap [Moles/Vol] 12.4 mmol[facility]L [facility] Basophils Auto (Bld) [#/Vol] on 01-13-2024 Basophils (Bld) [#/Vol] 0.1 10 3/uL 0.0-0.1 [facility] Basophils/100 WBC Auto (Bld) on 01-13-2024 Basophils/100 WBC (Bld) 1.1 % 0.2-2.0 [facility] Eosinophils/100 WBC Auto (Bl d)on 01-13-2024 Eosinophils/100 WBC (Bld) 0.2 % 0.9-7.0 [facility] Erythrocyte distribution wid th Auto (RBC) [Ratio]on 01-13-2024 Erythrocyte distribution width (RBC) [Ratio] 14.6 % 11.0-15.0 [facility] Estimated glomerular filtrat ion rate (GFR) non- Americanon 01-13-2024 GFR/1.73 sq M.predicted among non-blacks MDRD (S/P/Bld) [Vol rate/Area] 44 mL/min/{1.73_m2} >=60 [facility] Globulin Calc (S) [Mass/Vol] on 01-13-2024 Globulin (S) [Mass/Vol] 3.8 g/dL [facility] Hematocrit Auto (Bld) [Volum e fraction]on 01-13-2024 Hematocrit (Bld) [Volume fraction] 34.9 % 36.0-48.0 [facility] Hemoglobin [Mass/volume] in Bloodon 01-13-2024 Hemoglobin (Bld) [Mass/Vol] 10.9 g/dL 12.0-16.0 [facility] - Chemistry and C hemistry - challengeon 01-13-2024 Albumin [Mass/Vol] 1.8 g/dL 3.4-5.0 [facility] ALP [Catalytic activity/Vol] 296 U/L 46-116 [facility] ALT [Catalytic activity/Vol] 205 U/L 14-59 [facility] Ammonia (P) [Moles/Vol] 38 umol/L 11-32 [facility] AST [Catalytic activity/Vol] 200 U/L 15-37 [facility] Bilirubin [Mass/Vol] 0.5 mg/dL 0.2-1.0 [facility] Calcium [Mass/Vol] 7.8 mg/dL 8.5-10.1 [facility] Chloride [Moles/Vol] 110 mmol/L 98-107 [facility] CO2 [Moles/Vol] 24.0 mmol/L 21.0-32.0 [facility] Creatinine [Mass/Vol] 1.17 mg/dL 0.55-1.02 [facility] GFR/1.73 sq M.predicted MDRD (S/P/Bld) [Vol rate/Area] 53 mL/min/{1.73_m2} >=60 [facility] Glucose [Mass/Vol] 99 mg/dL 74-106 [facility] Lipase [Catalytic activity/Vol] 46.0 U/L 16.0-77.0 [facility] Potassium [Moles/Vol] 4.0 mmol/L 3.5-5.1 [facility] Protein [Mass/Vol] 5.6 g/dL 6.4-8.2 [facility] Sodium [Moles/Vol] 141 mmol/L 136-145 [facility] Urea nitrogen [Mass/Vol] 16.0 mg/dL 7.0-18.0 [facility] Urea nitrogen/Creatinine [Mass ratio] 13.7 mg/mg [facility] - Hematology and Cell countson 01-13-2024 Immature granulocytes/100 WBC (Bld) 0.5 % 0.0-0.5 [facility] Leukocytes [#/volume] correc emile for nucleated erythrocytes in Blood by Automated counon 01-13-2024 WBC corrected for nucl RBC Auto (Bld) [#/Vol] 6.4 10 3/uL 4.0-11.0 [facility] Lymphocytes Auto (Bld) [#/Vo l]on 01-13-2024 Lymphocytes (Bld) [#/Vol] 4.5 10 3/uL 1.2-3.8 [facility] Lymphocytes/100 WBC Auto (Bl d)on 01-13-2024 Lymphocytes/100 WBC (Bld) 70.8 % 20.5-60.0 [facility] MCH Auto (RBC) [Entitic mass ]on 01-13-2024 MCH (RBC) [Entitic mass] 29.1 pg 26.7-34.0 [facility] MCHC Auto (RBC) [Mass/Vol]on 01-13-2024 MCHC (RBC) [Mass/Vol] 31.2 g/dL 29.9-35.2 [facility] MCV Auto (RBC) [Entitic vol] on 01-13-2024 MCV (RBC) [Entitic vol] 93.1 fL 81.0-99.0 [facility] Monocytes Auto (Bld) [#/Vol] on 01-13-2024 Monocytes (Bld) [#/Vol] 0.4 10 3/uL 0.3-0.8 [facility] Monocytes/100 WBC Auto (Bld) on 01-13-2024 Monocytes/100 WBC (Bld) 6.6 % 1.7-12.0 [facility] Neutrophils Auto (Bld) [#/Vo l]on 01-13-2024 Neutrophils (Bld) [#/Vol] 1.3 10 3/uL 1.4-6.5 [facility] Neutrophils/100 WBC Auto (Bl d)on 01-13-2024 Neutrophils/100 WBC (Bld) 20.8 % 43.0-75.0 [facility] No Panel Informationon 01-12 Eosinophils # (Auto) 0.0 10 3/uL 0.0-0.7 [facility] Immature Granulocyte # (Auto) 0.03 10 3/uL 0.00-0.03 [facility] Platelet mean volume Auto (B ld) [Entitic vol]on 01-13-2024 Platelet mean volume (Bld) [Entitic vol] 9.0 fL 9.5-13.5 [facility] Platelets Auto (Bld) [#/Vol] on 01-13-2024 Platelets (Bld) [#/Vol] 203 10 3/uL 150-450 [facility] RBC Auto (Bld) [#/Vol]on RBC (Bld) [#/Vol] 3.75 10 6/uL 4.20-5.40 [facility] Serum or plasma albumin/glob ulin mass ratioon 01-13-2024 Albumin/Globulin [Mass ratio] 0.5 {ratio} [facility] Serum or plasma anion gap de terminationon 01-13-2024 Anion gap [Moles/Vol] 11.0 mmol/L [facility] Activated partial thrombopla stin time (aPTT) in platelet poor plasma by coagulation aon 01-12-2024 aPTT Coag (PPP) [Time] 31.0 s 22.3-36.2 [facility] Automated epithelial cells c ount in urine sediment (number/area)on 01-12-2024 Epithelial cells Auto (Urine sed) [#/Area] FEW #/LPF NONE/RARE [facility] Automated urine specific gra vity by refractometryon 01-12-2024 Specific gravity Refractometry automated (U) [Rel density] 1.020 1.005-1.025 [facility] Bacteria [Presence] in Urine by Automatedon 01-12-2024 Bacteria Auto Ql (U) SMALL #/HPF NONE SEEN [facility] Basophils Auto (Bld) [#/Vol] on 01-12-2024 Basophils (Bld) [#/Vol] 0.1 10 3/uL 0.0-0.1 [facility] Basophils/100 WBC Auto (Bld) on 01-12-2024 Basophils/100 WBC (Bld) 1.4 % 0.2-2.0 [facility] Bilirubin Auto test strip (U ) [Mass/Vol]on 01-12-2024 Bilirubin (U) [Mass/Vol] Negative NEGATIVE [facility] Casts typing in urine sedime nt by light microscopyon 01-12-2024 Casts LM Nom (Urine sed) NONE SEEN #/LPF NONE SEEN [facility] Color Auto (U)on 01-12-2024 Color (U) YELLOW YELLOW [facility] Eosinophils/100 WBC Auto (Bl d)on 01-12-2024 Eosinophils/100 WBC (Bld) 0.0 % 0.9-7.0 [facility] Erythrocyte distribution wid th Auto (RBC) [Ratio]on 01-12-2024 Erythrocyte distribution width (RBC) [Ratio] 14.5 % 11.0-15.0 [facility] Estimated glomerular filtrat ion rate (GFR) non- Americanon 01-12-2024 GFR/1.73 sq M.predicted among non-blacks MDRD (S/P/Bld) [Vol rate/Area] 41 mL/min/{1.73_m2} >=60 [facility] Globulin Calc (S) [Mass/Vol] on 01-12-2024 Globulin (S) [Mass/Vol] 3.9 g/dL [facility] Glucose [Mass/volume] in Uri ne by Test stripon 01-12-2024 Glucose Test strip (U) [Mass/Vol] Negative NEGATIVE [facility] Hematocrit Auto (Bld) [Volum e fraction]on 01-12-2024 Hematocrit (Bld) [Volume fraction] 36.3 % 36.0-48.0 [facility] Hemoglobin [Mass/volume] in Bloodon 01-12-2024 Hemoglobin (Bld) [Mass/Vol] 11.4 g/dL 12.0-16.0 [facility] INR in Platelet poor plasma by Coagulation assayon 01-12-2024 INR Coag (PPP) [Relative time] 1.08 {INR} [facility] Comment on above: DESIRED INR:2.0-3.0 CONDITIONS NOT LISTED BELOW2.5-3.5 FOR PROSTHETIC HEART VALVE REPLACEMENT2.5-3.5 RECURRENT THROMBOSIS Ketones Auto test strip (U) [Mass/Vol]on 01-12-2024 Ketones (U) [Mass/Vol] Negative NEGATIVE [facility] - Chemistry and C hemistry - challengeon 01-12-2024 Ammonia (P) [Moles/Vol] 50 umol/L [facility] Comment on above: RESULTS CALLED TO ISAIAS MCALLISTERRN Albumin [Mass/Vol] 2.1 g/dL 3.4-5.0 [facility] ALP [Catalytic activity/Vol] 331 U/L 46-116 [facility] ALT [Catalytic activity/Vol] 216 U/L 14-59 [facility] AST [Catalytic activity/Vol] 250 U/L 15-37 [facility] Bilirubin [Mass/Vol] 0.6 mg/dL 0.2-1.0 [facility] Calcium [Mass/Vol] 8.2 mg/dL 8.5-10.1 [facility] Chloride [Moles/Vol] 105 mmol/L 98-107 [facility] CO2 [Moles/Vol] 25.2 mmol/L 21.0-32.0 [facility] Creatinine [Mass/Vol] 1.24 mg/dL 0.55-1.02 [facility] GFR/1.73 sq M.predicted MDRD (S/P/Bld) [Vol rate/Area] 49 mL/min/{1.73_m2} >=60 [facility] Glucose [Mass/Vol] 108 mg/dL 74-106 [facility] Potassium [Moles/Vol] 3.9 mmol/L 3.5-5.1 [facility] Protein [Mass/Vol] 6.0 g/dL 6.4-8.2 [facility] Sodium [Moles/Vol] 137 mmol/L 136-145 [facility] Urea nitrogen [Mass/Vol] 23.0 mg/dL 7.0-18.0 [facility] Urea nitrogen/Creatinine [Mass ratio] 18.5 mg/mg [facility] - Hematology and Cell countson 01-12-2024 Immature granulocytes/100 WBC (Bld) 1.2 % 0.0-0.5 [facility] Leukocytes [#/area] in Urine sediment by Automated counton 01-12-2024 WBC Auto (Urine sed) [#/Area] 0-2 #/HPF 0-2 [facility] Leukocytes [#/area] in Urine sediment by Microscopy high power fieldon 01-12-2024 WBC LM.HPF (Urine sed) [#/Area] 5-10 #/HPF NONE SEEN [facility] Leukocytes [#/volume] correc emile for nucleated erythrocytes in Blood by Automated counon 01-12-2024 WBC corrected for nucl RBC Auto (Bld) [#/Vol] 5.8 10 3/uL 4.0-11.0 [facility] Lymphocytes Auto (Bld) [#/Vo l]on 01-12-2024 Lymphocytes (Bld) [#/Vol] 3.3 10 3/uL 1.2-3.8 [facility] Lymphocytes/100 WBC Auto (Bl d)on 01-12-2024 Lymphocytes/100 WBC (Bld) 57.0 % 20.5-60.0 [facility] MCH Auto (RBC) [Entitic mass ]on 01-12-2024 MCH (RBC) [Entitic mass] 29.5 pg 26.7-34.0 [facility] MCHC Auto (RBC) [Mass/Vol]on 01-12-2024 MCHC (RBC) [Mass/Vol] 31.4 g/dL 29.9-35.2 [facility] MCV Auto (RBC) [Entitic vol] on 01-12-2024 MCV (RBC) [Entitic vol] 93.8 fL 81.0-99.0 [facility] Monocytes Auto (Bld) [#/Vol] on 01-12-2024 Monocytes (Bld) [#/Vol] 0.4 10 3/uL 0.3-0.8 [facility] Monocytes/100 WBC Auto (Bld) on 01-12-2024 Monocytes/100 WBC (Bld) 6.7 % 1.7-12.0 [facility] Mucus LM Ql (Urine sed)on Mucus Ql (Urine sed) NONE SEEN NONE SEEN [facility] Neutrophils Auto (Bld) [#/Vo l]on 01-12-2024 Neutrophils (Bld) [#/Vol] 2.0 10 3/uL 1.4-6.5 [facility] Neutrophils/100 WBC Auto (Bl d)on 01-12-2024 Neutrophils/100 WBC (Bld) 33.7 % 43.0-75.0 [facility] No Panel Informationon 01-11 Eosinophils # (Auto) 0.0 10 3/uL 0.0-0.7 [facility] Immature Granulocyte # (Auto) 0.07 10 3/uL 0.00-0.03 [facility] Urine Culture Reflexed YES [facility] Urine Microscopic Review YES [facility] No Panel InformationOrdered By: Moustapha Avina on 01-12-2024 Blood Culture 2 [facility] Blood Culture 1 [facility] Platelet mean volume Auto (B ld) [Entitic vol]on 01-12-2024 Platelet mean volume (Bld) [Entitic vol] 9.9 fL 9.5-13.5 [facility] Platelets Auto (Bld) [#/Vol] on 01-12-2024 Platelets (Bld) [#/Vol] 199 10 3/uL 150-450 [facility] Protein Auto test strip (U) [Mass/Vol]on 01-12-2024 Protein (U) [Mass/Vol] TRACE mg/dL NEG/TRACE F [facility] Prothrombin time (PT)on 12-19 PT Coag (PPP) [Time] 11.4 s 9.0-11.6 [facility] RBC Auto (Bld) [#/Vol]on RBC (Bld) [#/Vol] 3.87 10 6/uL 4.20-5.40 [facility] Serum or plasma albumin/glob ulin mass ratioon 01-12-2024 Albumin/Globulin [Mass ratio] 0.5 {ratio} [facility] Serum or plasma anion gap de terminationon 01-12-2024 Anion gap [Moles/Vol] 10.7 mmol/L [facility] Specific gravity Auto test s trip (U) [Rel density]on 01-12-2024 Specific gravity (U) [Rel density] CLEAR CLEAR [facility] Urine hemoglobin detection b y automated test stripon 01-12-2024 Hemoglobin Auto test strip Ql (U) Negative NEGATIVE [facility] Urine nitrite detection by a utomated test stripon 01-12-2024 Nitrite Auto test strip Ql (U) SMALL NEGATIVE [facility] Nitrite Auto test strip Ql (U) Negative NEGATIVE [facility] Urine sediment crystal ident ification by light microscopyon 01-12-2024 Crystals LM Nom (Urine sed) None Seen #/HPF None Seen [facility] Urobilinogen Auto test strip (U) [Mass/Vol]on 01-12-2024 Urobilinogen Qn (U) 1.0 {Jordyn'U}/dL 0.2-1.0 [facility] pH Auto test strip (U)on pH (U) 5.5 [pH] 5.0-9.0 [facility] Basophils/100 WBC Manual cnt (Bld)on 01-11-2024 Basophils/100 WBC (Bld) 0.0 % 0.2-2.0 [facility] Diagnostic impression [Inter pretation] in Specimen Narrativeon 01-11-2024 Diagnostic impression Mol[employer] Tirso (Unsp spec) [Interp] Comment . [facility] Comment on above: Not infected with HC V unless early or acute infection issuspected (which may be delayed in an immunocompromisedindividual), or other evidence exists to indicate HCVinfection.Performed at: - [facility] [id number] Director: Tulio Huntley PhD, Phone: [phone] Eosinophils/100 WBC Manual c nt (Bld)on 01-11-2024 Eosinophils/100 WBC (Bld) 0.0 % 0.9-7.0 [facility] Erythrocyte distribution wid th Auto (RBC) [Ratio]on 01-11-2024 Erythrocyte distribution width (RBC) [Ratio] 14.4 % 11.0-15.0 [facility] Estimated glomerular filtrat ion rate (GFR) non- Americanon 01-11-2024 GFR/1.73 sq M.predicted among non-blacks MDRD (S/P/Bld) [Vol rate/Area] 34 mL/min/{1.73_m2} >=60 [facility] Globulin Calc (S) [Mass/Vol] on 01-11-2024 Globulin (S) [Mass/Vol] 3.7 g/dL [facility] Hematocrit Auto (Bld) [Volum e fraction]on 01-11-2024 Hematocrit (Bld) [Volume fraction] 36.3 % 36.0-48.0 [facility] Hemoglobin [Mass/volume] in Bloodon 01-11-2024 Hemoglobin (Bld) [Mass/Vol] 11.4 g/dL 12.0-16.0 [facility] Hepatitis B virus surface Ag [Presence] in Serum or Plasma by Immunoassayon 01-11-2024 HBV surface Ag IA Ql Negative Negative [facility] - Chemistry and C hemistry - challengeon 01-11-2024 Ammonia (P) [Moles/Vol] 34 umol/L 11-32 [facility] Albumin [Mass/Vol] 2.2 g/dL 3.4-5.0 [facility] ALP [Catalytic activity/Vol] 340 U/L 46-116 [facility] ALT [Catalytic activity/Vol] 189 U/L 14-59 [facility] AST [Catalytic activity/Vol] 151 U/L 15-37 [facility] Bilirubin [Mass/Vol] 0.6 mg/dL 0.2-1.0 [facility] [facility] Calcium [Mass/Vol] 8.3 mg/dL 8.5-10.1 [facility] Chloride [Moles/Vol] 103 mmol/L 98-107 [facility] CO2 [Moles/Vol] 23.4 mmol/L 21.0-32.0 [facility] Creatinine [Mass/Vol] 1.44 mg/dL 0.55-1.02 [facility] GFR/1.73 sq M.predicted MDRD (S/P/Bld) [Vol rate/Area] 42 mL/min/{1.73_m2} >=60 [facility] Glucose [Mass/Vol] 74 mg/dL 74-106 [facility] Potassium [Moles/Vol] 4.2 mmol/L 3.5-5.1 [facility] Protein [Mass/Vol] 5.9 g/dL 6.4-8.2 [facility] Sodium [Moles/Vol] 134 mmol/L 136-145 [facility] Urea nitrogen [Mass/Vol] 29.0 mg/dL 7.0-18.0 [facility] Urea nitrogen/Creatinine [Mass ratio] 20.1 mg/mg [facility] Laboratory - Hematology and Cell countson 01-11-2024 Band form neutrophils/100 WBC (Bld) 13.0 % 0-5 [facility] Lymphocytes/100 WBC (Bld) 9.0 % 20.5-60.0 [facility] Monocytes/100 WBC (Bld) 11.0 % 1.7-12.0 [facility] Leukocytes [#/volume] correc emile for nucleated erythrocytes in Blood by Automated counon 01-11-2024 WBC corrected for nucl RBC Auto (Bld) [#/Vol] 6.3 10 3/uL 4.0-11.0 [facility] MCH Auto (RBC) [Entitic mass ]on 01-11-2024 MCH (RBC) [Entitic mass] 29.8 pg 26.7-34.0 [facility] MCHC Auto (RBC) [Mass/Vol]on 01-11-2024 MCHC (RBC) [Mass/Vol] 31.4 g/dL 29.9-35.2 [facility] MCV Auto (RBC) [Entitic vol] on 01-11-2024 MCV (RBC) [Entitic vol] 94.8 fL 81.0-99.0 [facility] No Panel Informationon 01-10 Hepatitis A IgM Antibody Negative Negative [facility] Hepatitis B Core IgM Antibody Negative Negative [facility] Absolute Basophils (Manual) 0.00 10 3/uL 0.00-0.10 [facility] Band Neutrophils # (Manual) 0.8 10 3/uL 0.0-0.3 [facility] Eosinophils # (Manual) 0.00 10 3/uL 0.00-0.70 [facility] Lymphocytes # (Manual) 0.56 10 3/uL 1.20-3.80 [facility] Monocytes # (Manual) 0.69 10 3/uL 0.30-0.80 [facility] Reactive Lymphocytes 2.07 [facility] Reactive Lymphocytes 33.0 % [facility] Segmented Neutrophils # (Manual) 2.14 10 3/uL 1.4-6.5 [facility] Platelet mean volume Auto (B ld) [Entitic vol]on 01-11-2024 Platelet mean volume (Bld) [Entitic vol] 9.2 fL 9.5-13.5 [facility] Platelets Auto (Bld) [#/Vol] on 01-11-2024 Platelets (Bld) [#/Vol] 202 10 3/uL 150-450 [facility] RBC Auto (Bld) [#/Vol]on RBC (Bld) [#/Vol] 3.83 10 6/uL 4.20-5.40 [facility] Segmented neutrophils/100 WB C Manual cnt (Bld)on 01-11-2024 Segmented neutrophils/100 WBC (Bld) 34.0 % [facility] Serum or plasma albumin/glob ulin mass ratioon 01-11-2024 Albumin/Globulin [Mass ratio] 0.6 {ratio} [facility] Serum or plasma anion gap de terminationon 01-11-2024 Anion gap [Moles/Vol] 11.8 mmol[facility]L [facility] Serum or plasma hepatitis C virus antibody signal/cutoff ratio by immunoassay (relation 01-11-2024 HCV Ab Signal/Cutoff IA [Rel units/Vol] Non-Reactive Non Reactive [facility] Amorphous urine sedimenton 0 01-10-2024 Amorphous sediment LM Ql (Urine sed) MANY [facility] Automated epithelial cells c ount in urine sediment (number/area)on 01-10-2024 Epithelial cells Auto (Urine sed) [#/Area] NONE SEEN #/LPF NONE/RARE [facility] Automated urine hyaline cast s count (number/volume)on 01-10-2024 Hyaline casts Auto (U) [#/Vol] FEW [facility] Automated urine specific gra vity by refractometryon 01-10-2024 Specific gravity Refractometry automated (U) [Rel density] 1.025 1.005-1.025 [facility] Bacteria [Presence] in Urine by Automatedon 01-10-2024 Bacteria Auto Ql (U) NONE SEEN #/HPF NONE SEEN [facility] Basophils/100 WBC Manual cnt (Bld)on 01-10-2024 Basophils/100 WBC (Bld) 0.0 % 0.2-2.0 [facility] Bilirubin Auto test strip (U ) [Mass/Vol]on 01-10-2024 Bilirubin (U) [Mass/Vol] SMALL NEGATIVE [facility] Casts typing in urine sedime nt by light microscopyon 01-10-2024 Casts LM Nom (Urine sed) SEEN #/LPF NONE SEEN [facility] Color Auto (U)on 01-10-2024 Color (U) DK. ORANGE YELLOW [facility] Eosinophils/100 WBC Manual c nt (Bld)on 01-10-2024 Eosinophils/100 WBC (Bld) 0.0 % 0.9-7.0 [facility] Erythrocyte distribution wid th Auto (RBC) [Ratio]on 01-10-2024 Erythrocyte distribution width (RBC) [Ratio] 14.2 % 11.0-15.0 [facility] Estimated glomerular filtrat ion rate (GFR) non- Americanon 01-10-2024 GFR/1.73 sq M.predicted among non-blacks MDRD (S/P/Bld) [Vol rate/Area] 27 mL/min/{1.73_m2} >=60 [facility] Fine granular cast count in urine sediment by microscopy (number/low power field )on 01-10-2024 Fine Granular Casts LM.LPF (Urine sed) [#/Area] FEW [facility] Glucose [Mass/volume] in Uri ne by Test stripon 01-10-2024 Glucose Test strip (U) [Mass/Vol] Negative NEGATIVE [facility] Hematocrit Auto (Bld) [Volum e fraction]on 01-10-2024 Hematocrit (Bld) [Volume fraction] 37.0 % 36.0-48.0 [facility] Hemoglobin [Mass/volume] in Bloodon 01-10-2024 Hemoglobin (Bld) [Mass/Vol] 12.1 g/dL 12.0-16.0 [facility] Ketones Auto test strip (U) [Mass/Vol]on 01-10-2024 Ketones (U) [Mass/Vol] TRACE mg/dL NEGATIVE [facility] - Chemistry and C hemistry - challengeon 01-10-2024 Calcium [Mass/Vol] 8.7 mg/dL 8.5-10.1 [facility] Chloride [Moles/Vol] 99 mmol/L 98-107 [facility] CO2 [Moles/Vol] 22.3 mmol/L 21.0-32.0 [facility] Creatinine [Mass/Vol] 1.78 mg/dL 0.55-1.02 [facility] GFR/1.73 sq M.predicted MDRD (S/P/Bld) [Vol rate/Area] 33 mL/min/{1.73_m2} >=60 [facility] Glucose [Mass/Vol] 84 mg/dL 74-106 [facility] Potassium [Moles/Vol] 4.3 mmol/L 3.5-5.1 [facility] Sodium [Moles/Vol] 131 mmol/L 136-145 [facility] Urea nitrogen [Mass/Vol] 32.0 mg/dL 7.0-18.0 [facility] Urea nitrogen/Creatinine [Mass ratio] 18.0 mg/mg [facility] Laboratory - Hematology and Cell countson 01-10-2024 Band form neutrophils/100 WBC (Bld) 0.0 % 0-5 [facility] Lymphocytes/100 WBC (Bld) 13.0 % 20.5-60.0 [facility] Monocytes/100 WBC (Bld) 8.0 % 1.7-12.0 [facility] Leukocytes [#/area] in Urine sediment by Automated counton 01-10-2024 WBC Auto (Urine sed) [#/Area] NONE SEEN #/HPF 0-2 [facility] Leukocytes [#/area] in Urine sediment by Microscopy high power fieldon 01-10-2024 WBC LM.HPF (Urine sed) [#/Area] NONE SEEN #/HPF NONE SEEN [facility] Leukocytes [#/volume] correc emile for nucleated erythrocytes in Blood by Automated counon 01-10-2024 WBC corrected for nucl RBC Auto (Bld) [#/Vol] 6.3 10 3/uL 4.0-11.0 [facility] MCH Auto (RBC) [Entitic mass ]on 01-10-2024 MCH (RBC) [Entitic mass] 29.9 pg 26.7-34.0 [facility] MCHC Auto (RBC) [Mass/Vol]on 01-10-2024 MCHC (RBC) [Mass/Vol] 32.7 g/dL 29.9-35.2 [facility] MCV Auto (RBC) [Entitic vol] on 01-10-2024 MCV (RBC) [Entitic vol] 91.4 fL 81.0-99.0 [facility] Mucus LM Ql (Urine sed)on Mucus Ql (Urine sed) TRACE NONE SEEN [facility] No Panel Informationon 01-09 Urine Culture [facility]lexed NO [facility] Absolute Basophils (Manual) 0.00 10 3/uL 0.00-0.10 [facility] Band Neutrophils # (Manual) 0.0 10 3/uL 0.0-0.3 [facility] Eosinophils # (Manual) 0.00 10 3/uL 0.00-0.70 [facility] Lymphocytes # (Manual) 0.81 10 3/uL 1.20-3.80 [facility] Monocytes # (Manual) 0.50 10 3/uL 0.30-0.80 [facility] Reactive Lymphocytes 1.82 [facility] Reactive Lymphocytes 29.0 % [facility] Segmented Neutrophils # (Manual) 2.70 10 3/uL 1.4-6.5 [facility] Platelet mean volume Auto (B ld) [Entitic vol]on 01-10-2024 Platelet mean volume (Bld) [Entitic vol] 8.9 fL 9.5-13.5 [facility] Platelets Auto (Bld) [#/Vol] on 01-10-2024 Platelets (Bld) [#/Vol] 219 10 3/uL 150-450 [facility] Protein Auto test strip (U) [Mass/Vol]on 01-10-2024 Protein (U) [Mass/Vol] 30 mg/dL NEG/TRACE [facility] RBC Auto (Bld) [#/Vol]on RBC (Bld) [#/Vol] 4.05 10 6/uL 4.20-5.40 [facility] Segmented neutrophils/100 WB C Manual cnt (Bld)on 01-10-2024 Segmented neutrophils/100 WBC (Bld) 43.0 % [facility] Serum or plasma anion gap de terminationon 01-10-2024 Anion gap [Moles/Vol] 14.0 mmol/L [facility] Specific gravity Auto test s trip (U) [Rel density]on 01-10-2024 Specific gravity (U) [Rel density] CLEAR CLEAR [facility] Urine hemoglobin detection b y automated test stripon 01-10-2024 Hemoglobin Auto test strip Ql (U) TRACE-I NEGATIVE [facility] Urine nitrite detection by a utomated test stripon 01-10-2024 Nitrite Auto test strip Ql (U) Negative NEGATIVE [facility] Urine sediment crystal ident ification by light microscopyon 01-10-2024 Crystals LM Nom (Urine sed) None Seen #/HPF None Seen [facility] Urobilinogen Auto test strip (U) [Mass/Vol]on 01-10-2024 Urobilinogen Qn (U) 1.0 {Jordyn'U}/dL 0.2-1.0 [facility] pH Auto test strip (U)on pH (U) 5.5 [pH] 5.0-9.0 [facility] Ambulatory Visit Summaryon 0 11-22-2023 Ambulatory Visit [...] Follow-Up Appointments Tuesday 10:00 AM EDT With: KEIKO ROCK PA-C Where: [facility] Normal [facility] Patient Educationon 11-22-19 Patient Education Gastroenterology [...] as fried or sweet foods. These include czech fries, hamburgers, cookies, candies, and soda. ? Drink enough fluid to keep your urine pale yellow. General instructions ? Exercise regularly or as told by your health care provider. Try to do 150 minutes of moderate exercise each week. ? Use the bathroom when you have the urge to go. Do not hold it in. ? Take glvq-pqs-efwbkqs and prescription medicines only as told by [...] keep your urine pale yellow. ? Take vzyx-ztu-fgpzqtm and prescription medicines only as told by your health care provider. This includes any fiber supplements. This information is not intended to replace advice given to you by your health care provider. Make sure you discuss any questions you have with your health care provider. Document Revised: 07/23/2020 Document Reviewed: 07/23/2020 [employer] Patient Education ? 2022 [employer]. [facility] Urology Office/Clinic Noteon 11-22-2023 Urology Office/Clinic [...] pt to restart. DEIDRE scheduled 11/18/23 @ [facility] pt. states that she is having an [...] the barrier cream, however reports no vaginal complaints/irritatio n 4. 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, preparing the chart, conducting the encounter [...] Recorded pneumococcal 13-valent vaccine 02/15/2020 Recorded Normal [facility] Comment on above: Result Comment: Elec tronically Signed By: KEIKO ROCK PA-C\.br\Date and Time Signed: 11/22/23 09:21 EST RAD - Ultrasound Reporton RAD - Ultrasound Report [id number] #[id number] [facility] Reminderson 11-15-2023 Reminders - From: KEIKO ROCK PA-C To: EU - Recalls Lex; Sent: 11/24/2022 11:11:50 EST Show up: 10/27/2023 11:11:00 EST Subject: DEIDRE Due Date/Time: 11/25/2023 11:11:00 EST 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 Take jtof-ynd-qhjtcyz and prescription medicines only as told by [...] provider. Document Revised: 04/17/2021 Document Reviewed: 04/17/2021 [employer] Patient Education ? 2022 [employer]. Obstetrics and Gynecology Urinary Tract Infection, Adult [...] You h (more content not included)... Normal [facility] Urology Office/Clinic Noteon 05-04-2023 Urology Office/Clinic Note Chief Complaint uti symptoms? HPI Staff 87 year old female here for [...] pharm on file. 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 -Again discussed importance [...] tests in (more content not included)... Normal [facility] Comment on above: Result Comment: Elec tronically Signed By: Cassidy Parks MD\.br\Date and Time Signed: 05/04/23 18:22 EDT\.br\Electronically Co-Signed By: Xuan Mortensen\.br\Date and Time Co-Signed: 05/04/23 11:43 EDT Consultation Noteon 12-11-19 Consultation Note [id number]# 1.00CD:127 Normal [facility] Ambulatory Visit Summaryon 0 11-24-2022 Ambulatory Visit Summary RADHAYUDYSHAYNA J :1935 Visit Date:11/24/2022 Ambulatory Visit Instructions Your Diagnosis Recurrent UTI Tests Performed Urnls Dip Stick Auto w/o Microscopy POC 02893 Your Care Team Attending Physician - KEIKO [...] PA-C Where: [facility] Patient Educationon 11-25-19 Patient Education Obstetrics and [...] are. Treatment may include: ? Using an dpra-bqo-cmplcci vaginal lubricant before sex. ? Using a [...] these instructions at home: Medicines ? Take mpus-mdg-mkrvfqs and prescription medicines only as told by your health care provider. Do not use herbal or alternative medicines unless your health care provider says that you can. ? Use iyis-znq-xxvasij creams, lubricants, or moisturizers for dryness only [...] 01/20/2016 Document Revised: 08/18/2018 Document Reviewed: 06/01/2018 [employer] Patient Education ? 2019 [employer]. Normal [facility] Urology Office/Clinic Noteon 11-24-2022 Urology Office/Clinic [...] E&M of Est. Patient Moderate 30-39 Min 08109 E&M of Est. Patient Moderate 30-39 Min 96319 2. Recurrent UTI (N39.0: Urinary tract infection, site not specified) No UTIs since last visit. Has been using estrogen cream 2x per week as instructed. CT 10/15/22 showed no renal calculus. Ordered: E&M of Est. Patient Moderate 30-39 Min 16028 E&M of Est. Patient Moderate 30-39 Min 55732 Urnls Dip Stick Auto w/o Microscopy POC 85139 3. 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 States dysuria/urethral pain has completely resolved. Very pleased. Ordered: E&M of Est. Patient Moderate 30-39 Min 74580 E&M of Est. Patient Moderate 30-39 Min 48643 4. Contact dermatitis (L25.9: Unspecified contact dermatitis, [...] E&M of Est. Patient Moderate 30-39 Min 89569 E&M of Est. Patient Moderate 30-39 Min 80480 f/u 1 yr w DEIDRE prior. sooner if vaginal pain does not resolve w use of barrier cream. 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 Normal [facility] Comment on above: Result Comment: Elec tronically Signed By: KEIKO ROCK PA-C\.br\Date and Time Signed: 11/24/22 12:[address] [...] angiomyolipoma. No renal calculus or hydronephrosis identified. Gastrointestinal/Per itoneum: No acute abnormality. Mild colonic diverticulosis is [...] by: YESICA ZAYAS Date: 2022-10-15 09:34 Normal [facility] CREATININEon 06-08-2022 Creatinine [Mass/Vol] 1.22 mg/dL Critically high 0.55-1.02 [facility] Comment on above: Performed By: #### C BRITTANI ####[facility] [address] [place] [address]Dr. Errol Flannery EGFR-AF [place] 51 mL/min/1.73m2 Critically low >=60 [facility] Comment on above: Performed By: #### C BRITTANI ####[facility] [address] [address]DrElana Flannery EGFR-NON AF [place] 42 mL/min/1.73m2 Critically low >=60 [facility] Comment on above: Performed By: #### C BRITTANI ####[facility] [address] [address]Dr. Errol Flannery CTA CHEST WO W CONon [...] ALEXANDER DUMONT Date: 2022-06-08 10:18 Normal [facility] CARDIAC ZECHARIAH 3-6on 2 CK [Catalytic activity/Vol] 35 U/L Normal 26-192 [facility] Comment on above: Performed By: #### L ACT #### [facility] [address] [address] [address] Errol Flannery CK.MB [Mass/Vol] 1.42 ng/mL Normal <=3.60 [facility] Comment on above: Performed By: #### L ACT #### [facility] [address] [address] [address] Errol Flannery HSTROP 6.4 pg/mL Normal 4.0-51.3 [facility] Comment on above: Result Comment: CUT- OFF POINTS HAVE BEEN ESTABLISHED BASED ON THE FOURTH UNIVERSAL DEFINITIONS OF MYOCARDIAL INFARCTION. THE UPPER REFERENCE LIMIT (URL) OF TROPONIN, DEFINED THE 99TH PERCENTILE OF cTnI DISTRIBUTION IN A REFERENCE POPULATION, HAS BEEN CONFIRMED THE DECISION THRESHOLD FOR TX DIAGNOSIS. Performed By: #### L ACT #### [facility] [address] [address] [address] Errol Flannery CARDIAC ZECHARIAH ADMITon 022 CK [Catalytic activity/Vol] 41 U/L Normal 26-192 [facility] Comment on above: Performed By: #### C MADM, BMP ####[facility] [address] [address]Dr. Errol Flannery CK.MB [Mass/Vol] 1.36 ng/mL Normal <=3.60 [facility] Comment on above: Performed By: #### C ALICIA, BMP ####[facility] [address] [place] [address]Dr. Errol Flannery HSTROP 5.8 pg/mL Normal 4.0-51.3 [facility] Comment on above: Result Comment: CUT- OFF POINTS HAVE BEEN ESTABLISHED BASED ON THE FOURTH UNIVERSAL DEFINITIONS OF MYOCARDIAL INFARCTION. THE UPPER REFERENCE LIMIT (URL) OF TROPONIN, DEFINED THE 99TH PERCENTILE OF cTnI DISTRIBUTION IN A REFERENCE POPULATION, HAS BEEN CONFIRMED THE DECISION THRESHOLD FOR TX DIAGNOSIS. Performed By: #### C ALICIA, BMP ####[facility] [address] [address]Dr. Errol Flannery RICHELLE 65 ng/mL Normal 9-82 [facility] Comment on above: Performed By: #### C KRISTIM, BMP ####[facility] [address] [id number]. Errol Flannery CBC AUTO DIFFon 04-29-2022 BASO # 0.0 103/ul Normal 0.0-0.1 [facility] Comment on above: Performed By: #### L ACT #### [facility] [address] [place] [address] Dr. Errol Flannery Basophils/100 WBC (Bld) 0.2 % Normal 0.2-2.0 [facility] Comment on above: Performed By: #### L ACT #### [facility] [address] [address] [address] Errol Flannery EO # 0.0 103/ul Normal 0.0-0.7 [facility] Comment on above: Performed By: #### L ACT #### [facility] [address] [place] [address] Dr. Errol Flannery Eosinophils/100 WBC (Bld) 0.1 % Critically low 0.9-7.0 [facility] Comment on above: Performed By: #### L ACT #### [facility] [address] [place] [address] Dr. Errol Flannery Erythrocyte distribution width (RBC) [Ratio] 13.9 % Normal 11.0-15.0 [facility] Comment on above: Performed By: #### L ACT #### [facility] [address] [place] [address] Dr. Errol Flannery Hematocrit (Bld) [Volume fraction] 40.9 % Normal 36.0-48.0 [facility] Comment on above: Performed By: #### L ACT #### [facility] [address] [place] [address] Dr. Errol Flannery Hemoglobin (Bld) [Mass/Vol] 13.3 g/dL Normal 12.0-16.0 [facility] Comment on above: Performed By: #### L ACT #### [facility] [address] [place] [address] Dr. Errol Flannery IG # 0.02 10e3/ul Normal 0.00-0.03 [facility] Comment on above: Performed By: #### L ACT #### [facility] [address] [place] [address] Dr. Errol Flannery IG % 0.2 % Normal 0.0-0.5 [facility] Comment on above: Performed By: #### L ACT #### [facility] [address] [place] [address] Dr. Errol Flannery LYMPH # 0.9 103/ul Critically low 1.2-3.8 [facility] Comment on above: Performed By: #### L ACT #### [facility] [address] [place] [address] Dr. Errol Flannery Lymphocytes/100 WBC (Bld) 9.2 % Critically low 20.5-60.0 [facility] Comment on above: Performed By: #### L ACT #### [facility] [address] [place] [address] Dr. Errol Flannery MANUAL DIFF REQ NO Normal [facility] Comment on above: Performed By: #### L ACT #### [facility] [address] [place] [address] Dr. Errol Flannery MCH (RBC) [Entitic mass] 30.6 pg Normal 26.7-34.0 [facility] Comment on above: Performed By: #### L ACT #### [facility] [address] [place] [address] Dr. Errol Flannery MCHC (RBC) [Mass/Vol] 32.5 g/dL Normal 29.9-35.2 [facility] Comment on above: Performed By: #### L ACT #### [facility] [address] [place] [address] Dr. Errol Flannery MCV (RBC) [Entitic vol] 94.0 fL Normal 81.0-99.0 [facility] Comment on above: Performed By: #### L ACT #### [facility] [address] [place] [address] Dr. Errol Flannery MONO # 0.6 103/ul Normal 0.3-0.8 [facility] Comment on above: Performed By: #### L ACT #### [facility] [address] [place] [address] Dr. Errol Flannery Monocytes/100 WBC (Bld) 6.8 % Normal 1.7-12.0 [facility] Comment on above: Performed By: #### L ACT #### [facility] [address] [place] [address] Dr. Errol Flannery NEUT # 7.9 103/ul Critically high 1.4-6.5 [facility] Comment on above: Performed By: #### L ACT #### [facility] [address] [place] [address] Dr. Errol Flannery Neutrophils/100 WBC (Bld) 83.5 % Critically high 43.0-75.0 [facility] Comment on above: Performed By: #### L ACT #### [facility] [address] [place] [address] Dr. Errol Flannery Platelet mean volume (Bld) [Entitic vol] 9.5 fL Normal 9.5-13.5 [facility] Comment on above: Performed By: #### L ACT #### [facility] [address] [place] [address] Dr. Errol Flannery PLT 244 103/ul Normal 150-450 [facility] Comment on above: Performed By: #### L ACT #### [facility] [address] [place] [address] Dr. Errol Flannery RBC 4.35 106/ul Normal 4.20-5.40 [facility] Comment on above: Performed By: #### L ACT #### [facility] [address] [place] [address] Dr. Errol Flannery WBC 9.4 103/ul Normal 4.0-11.0 [facility] Comment on above: Performed By: #### L ACT #### [facility] [address] [place] [address] Dr. Errol Flannery ER URINE PROFILEon 2 Bilirubin Ql (U) Negative Normal NEGATIVE [facility] Comment on above: Performed By: #### L ACT #### [facility] [address] [place] [address] Dr. Errol Flannery Clarity (U) CLEAR Normal CLEAR [facility] Comment on above: Performed By: #### L ACT #### [facility] [address] [place] [address] Dr. Errol Flannery Color (U) LT. YELLOW Normal YELLOW [facility] Comment on above: Performed By: #### L ACT #### [facility] [address] [place] [address] Dr. Errol Flannery ERUHAWK A micrscopic examination will be performed if indicated. Normal [facility] Comment on above: Performed By: #### L ACT #### [facility] [address] [place] [address] Dr. Errol Flannery Glucose Ql (U) Negative Normal NEGATIVE [facility] Comment on above: Performed By: #### L ACT #### [facility] [address] [place] [address] Dr. Errol Flannery Hemoglobin Ql (U) Negative Normal NEGATIVE [facility] Comment on above: Performed By: #### L ACT #### [facility] [address] [place] [address] Dr. Errol Flannery Ketones Ql (U) TRACE Abnormal NEGATIVE [facility] Comment on above: Performed By: #### L ACT #### [facility] [address] [place] [address] Dr. Errol Flannery LEUKOCYTES MODERATE Abnormal NEGATIVE [facility] Comment on above: Performed By: #### L ACT #### [facility] [address] [place] [address] Dr. Errol Flannery Nitrite Ql (U) Negative Normal NEGATIVE [facility] Comment on above: Performed By: #### L ACT #### [facility] [address] [place] [address] Dr. Errol Flannery pH (U) 6.5 [pH] Normal 5-9 [facility] Comment on above: Performed By: #### L ACT #### [facility] [address] [place] [address] Dr. Errol Flannery SPEC GRAVITY 1.010 Normal 1.005-<=1.025 The [facility] Comment on above: Performed By: #### L ACT #### [facility] [address] [place] [address] Dr. Errol Flannery UA PROTEIN Negative Normal NEGATIVE/ TRACE [facility] Comment on above: Performed By: #### L ACT #### [facility] [address] [place] [address] Dr. Errol Flannery UR MICRO IND INDICATED Normal [facility] Comment on above: Performed By: #### L ACT #### [facility] [address] [place] [address] Dr. Errol Flannery Urobilinogen Qn (U) 0.2 {Jordyn'U}/dL Normal 0.2 - 1. 0 The [facility] Comment on above: Performed By: #### L ACT #### [facility] [address] [address] [address] Errol Flannery LACTATE/LACTIC ACIDon 2021 Lactate [Moles/Vol] 0.8 mmol/L Normal 0.4-1.9 [facility] Comment on above: Performed By: #### L ACT #### [facility] [address] [address] [address] Errol Flannery Lactate [Moles/Vol] 0.9 mmol/L Normal 0.4-1.9 [facility] Comment on above: Performed By: #### L ACT ####[facility] [address] [address]DrElana Flannery PROF CHEM 8 (BAS METB)on Anion gap [Moles/Vol] 11.5 mmol/L Normal [facility] Comment on above: Performed By: #### Audra VARGAS, BMP ####[facility] [address] [address]DrElana Flannery Calcium [Mass/Vol] 8.9 mg/dL Normal 8.5-10.1 [facility] Comment on above: Performed By: #### Audra VARGAS, BMP ####[facility] [address] [address]DrElana Flannery Chloride [Moles/Vol] 104 mmol/L Normal 98-107 [facility] Comment on above: Performed By: #### C ALICIA, BMP ####[facility] [address] [address]DrElana Flannery CO2 [Moles/Vol] 28.3 mmol/L Normal 21.0-32.0 The [facility] Comment on above: Performed By: #### Audra VARGAS, BMP ####[facility] [address] [address]Dr. Errol Flannery Creatinine [Mass/Vol] 1.04 mg/dL Critically high 0.55-1.02 [facility] Comment on above: Performed By: #### Audra VARGAS, BMP ####[facility] [address] [id number]. Errol Flannery EGFR-AF [place]ER >60 Normal >=60 [facility] Comment on above: Performed By: #### C ALICIA, BMP ####[facility] [address] [id number]. Errol Flannery EGFR-NON AF [place] 50 mL/min/1.73m2 Critically low >=60 [facility] Comment on above: Performed By: #### C ALICIA, BMP ####[facility] [address] [id number]. Errol Flannery Glucose [Mass/Vol] 131 mg/dL Critically high 74-106 [facility] Comment on above: Performed By: #### C ALICIA, BMP ####[facility] [address] [address]Dr. Errol Flannery Potassium [Moles/Vol] 3.8 mmol/L Normal 3.5-5.1 [facility] Comment on above: Performed By: #### C ALICIA, BMP ####[facility] [address] [address]Dr. Errol Flannery Sodium [Moles/Vol] 140 mmol/L Normal 136-145 [facility] Comment on above: Performed By: #### C ALICIA, BMP ####[facility] [address]omte[address] [id number]. Errol Flannery Urea nitrogen [Mass/Vol] 16.0 mg/dL Normal 7.0-18.0 [facility] Comment on above: Performed By: #### C ALICIA, BMP ####[facility] [address] [address]Dr. Errol Flannery Urea nitrogen/Creatinine [Mass ratio] 15.4 mg/mg Normal [facility] Comment on above: Performed By: #### C ALICIA, BMP ####[facility] [address] [address]Dr. Errol Flannery URINE MICROSCOPIC ONLYon BACTERIA TRACE Abnormal NONE SEEN [facility] Comment on above: Performed By: #### L ACT #### [facility] [address] [place] [address] Dr. Errol Flannery Bacteria identified Cx Nom (U) NOT INDICATED Normal [facility] Comment on above: Performed By: #### L ACT #### [facility] [address] [place] [address] Dr. Errol Flannery CAST NONE SEEN Normal NONE SEEN [facility] Comment on above: Performed By: #### L ACT #### [facility] [address] [place] [address] Dr. Errol Flannery Crystals LM Nom (Urine sed) NONE SEEN Normal NONE SEEN [facility] Comment on above: Performed By: #### L ACT #### [facility] [address] [place] [address] Dr. Errol Flannery Epithelial cells LM Ql (Urine sed) FEW Abnormal NONE SEEN /RARE [facility] Comment on above: Performed By: #### L ACT #### [facility] [address] [place] [address] Dr. Errol Flannery MUCOUS NONE SEEN Normal NONE SEEN [facility] Comment on above: Performed By: #### L ACT #### [facility] [address] [place] [address] Dr. Errol Flannery RBC 0-2 Normal 0-2 [facility] Comment on above: Performed By: #### L ACT #### [facility] [address] [place] [address] Dr. Errol Flannery WBC 2-5 Abnormal NONE SEEN [facility] Comment on above: Performed By: #### L ACT #### [facility] [address] [place] [address] Dr. Errol Flannery XR CHEST 1 Von 04-29-2022 XR CHEST 1 V EXAMINATION: XR CHEST 1 V HISTORY: Patient vomited COMPARISON: Chest [...] GENO LAU Date: 2022-04-28 23:01 Normal [facility] CBC AUTO DIFFon 04-12-2022 BASO # 0.0 103/ul Normal 0.0-0.1 [facility] Comment on above: Performed By: #### C BC ####[facility] [address] [id number]. Errol Flannery Basophils/100 WBC (Bld) 0.5 % Normal 0.2-2.0 [facility] Comment on above: Performed By: #### C BC ####[facility] [address] [address]Dr. Errol Flannery EO # 0.1 103/ul Normal 0.0-0.7 [facility] Comment on above: Performed By: #### C BC ####[facility] [address] [address]Dr. Errol Flannery Eosinophils/100 WBC (Bld) 1.9 % Normal 0.9-7.0 [facility] Comment on above: Performed By: #### C BC ####[facility] [address] [place], [place] [id number]. Errol Flannery Erythrocyte distribution width (RBC) [Ratio] 14.1 % Normal 11.0-15.0 [facility] Comment on above: Performed By: #### C BC ####[facility] [address] [place], [place] [address]Dr. Errol Flannery Hematocrit (Bld) [Volume fraction] 35.1 % Critically low 36.0-48.0 [facility] Comment on above: Performed By: #### C BC ####[facility] [address] [id number]. Errol Flannery Hemoglobin (Bld) [Mass/Vol] 11.5 g/dL Critically low 12.0-16.0 [facility] Comment on above: Performed By: #### C BC ####[facility] [address] [id number]. Errol Flannery IG # 0.02 10e3/ul Normal 0.00-0.03 [facility] Comment on above: Performed By: #### C BC ####[facility] [address] [address]Dr. Errol Flannery IG % 0.3 % Normal 0.0-0.5 [facility] Comment on above: Performed By: #### C BC ####[facility] [address] [id number]. Errol Flannery LYMPH # 1.4 103/ul Normal 1.2-3.8 [facility] Comment on above: Performed By: #### C BC ####[facility] [address] [address]Dr. Errol Flannery Lymphocytes/100 WBC (Bld) 24.2 % Normal 20.5-60.0 [facility] Comment on above: Performed By: #### C BC ####[facility] [address] [place], [place] [address]Dr. Errol Flannery MANUAL DIFF REQ NO Normal [facility] Comment on above: Performed By: #### C BC ####[facility] [address] [id number]. Errol Flannery MCH (RBC) [Entitic mass] 30.6 pg Normal 26.7-34.0 [facility] Comment on above: Performed By: #### C BC ####[facility] [address] [id number]. Errol Flannery MCHC (RBC) [Mass/Vol] 32.8 g/dL Normal 29.9-35.2 [facility] Comment on above: Performed By: #### C BC ####[facility] Ex[address] [place], [place] [address]Dr. Errol Flannery MCV (RBC) [Entitic vol] 93.4 fL Normal 81.0-99.0 [facility] Comment on above: Performed By: #### C BC ####[facility] Y[address] [place], [place] [address]Dr. Errol Flannery MONO # 0.6 103/ul Normal 0.3-0.8 [facility] Comment on above: Performed By: #### C BC ####[facility] [address] [id number]. Errol Flannery Monocytes/100 WBC (Bld) 10.0 % Normal 1.7-12.0 [facility] Comment on above: Performed By: #### C BC ####[facility] [address] [id number]. Errol Flannery NEUT # 3.7 103/ul Normal 1.4-6.5 [facility] Comment on above: Performed By: #### C BC ####[facility] [address] [id number]. Errol Flannery Neutrophils/100 WBC (Bld) 63.1 % Normal 43.0-75.0 [facility] Comment on above: Performed By: #### C BC ####[facility] [address] [id number]. Errol Flannery Platelet mean volume (Bld) [Entitic vol] 9.8 fL Normal 9.5-13.5 [facility] Comment on above: Performed By: #### C BC ####[facility] [address] [id number]. Errol Flannery PLT 237 103/ul Normal 150-450 [facility] Comment on above: Performed By: #### C BC ####[facility] [address] [address]Dr. Errol Flannery RBC 3.76 106/ul Critically low 4.20-5.40 [facility] Comment on above: Performed By: #### C BC ####[facility] [address] [id number]. Errol Flannery WBC 5.8 103/ul Normal 4.0-11.0 [facility] Comment on above: Performed By: #### C BC ####[facility] [address]vel[address] [id number] Flannery PROF 14(COMP METB)on 022 Albumin [Mass/Vol] 2.2 g/dL Critically low 3.4-5.0 [facility] Comment on above: Performed By: #### L ACT #### [facility] [address] [address] [address] Errol Flannery Albumin/Globulin [Mass ratio] 0.7 {ratio} Normal [facility] Comment on above: Performed By: #### L ACT #### [facility] [address] [address] [address] Errol Flannery ALP [Catalytic activity/Vol] 65 U/L Normal 46-116 [facility] Comment on above: Performed By: #### L ACT #### [facility] [address] [place] [address] Dr. Errol Flannery ALT [Catalytic activity/Vol] 32 U/L Normal 14-59 [facility] Comment on above: Performed By: #### L ACT #### [facility] [address] [place] [address] Dr. Errol Flanneyr Anion gap [Moles/Vol] 8.6 mmol/L Normal [facility] Comment on above: Performed By: #### L ACT #### [facility] [address] [place] [address] Dr. Errol Flannery AST [Catalytic activity/Vol] 21 U/L Normal 15-37 [facility] Comment on above: Performed By: #### L ACT #### [facility] [address] [place] [address] Dr. Errol Flannery Bilirubin [Mass/Vol] 0.2 mg/dL Normal 0.2-1.0 [facility] Comment on above: Performed By: #### L ACT #### [facility] [address] [place] [address] Dr. Errol Flannery Calcium [Mass/Vol] 8.5 mg/dL Normal 8.5-10.1 [facility] Comment on above: Performed By: #### L ACT #### [facility] [address] [place] [address] Dr. Errol Flannery Chloride [Moles/Vol] 109 mmol/L Critically high 98-107 [facility] Comment on above: Performed By: #### L ACT #### [facility] [address] [address] [address] Errol Flannery CO2 [Moles/Vol] 29.0 mmol/L Normal 21.0-32.0 [facility] Comment on above: Performed By: #### L ACT #### [facility] [address] [address] [address] Errol Flannery Creatinine [Mass/Vol] 1.01 mg/dL Normal 0.55-1.02 [facility] Comment on above: Performed By: #### L ACT #### [facility] [address] [address] [address] Errol Flannery EGFR-AF [place] >60 Normal >=60 [facility] Comment on above: Performed By: #### L ACT #### [facility] [address] [place] [address] Dr. Errol Flannery EGFR-NON AF [place] 52 mL/min/1.73m2 Critically low >=60 [facility] Comment on above: Performed By: #### L ACT #### [facility] [address] [place] [address] Dr. Errol Flannery Globulin (S) [Mass/Vol] 3.1 g/dL Normal [facility] Comment on above: Performed By: #### L ACT #### [facility] [address] [place] [address] Dr. Errol Flannery Glucose [Mass/Vol] 98 mg/dL Normal 74-106 [facility] Comment on above: Performed By: #### L ACT #### [facility] [address] [address] [address] Errol Flannery Potassium [Moles/Vol] 4.6 mmol/L Normal 3.5-5.1 [facility] Comment on above: Performed By: #### L ACT #### [facility] [address] [place] [address] Dr. Errol Flannery Protein [Mass/Vol] 5.3 g/dL Critically low 6.4-8.2 [facility] Comment on above: Performed By: #### L ACT #### [facility] [address] [address] [address] Errol Flannery Sodium [Moles/Vol] 142 mmol/L Normal 136-145 [facility] Comment on above: Performed By: #### L ACT #### [facility] [address] [address] [address] Errol Flannery Urea nitrogen [Mass/Vol] 16.0 mg/dL Normal 7.0-18.0 [facility] Comment on above: Performed By: #### L ACT #### [facility] [address] [address] [address] Errol Flannery Urea nitrogen/Creatinine [Mass ratio] 15.8 mg/mg Normal [facility] Comment on above: Performed By: #### L ACT #### [facility] [address] [place] [address] Dr. Errol Flannery CBC AUTO DIFFon 04-11-2022 BASO # 0.0 103/ul Normal 0.0-0.1 [facility] Comment on above: Performed By: #### C BC ####[facility] [address] [address]DrElana Flannery Basophils/100 WBC (Bld) 0.6 % Normal 0.2-2.0 [facility] Comment on above: Performed By: #### C BC ####[facility] [address] [address]DrElana Flannery EO # 0.1 103/ul Normal 0.0-0.7 [facility] Comment on above: Performed By: #### C BC ####[facility] [address]soosz[address] [address]DrElana Flannery Eosinophils/100 WBC (Bld) 1.8 % Normal 0.9-7.0 [facility] Comment on above: Performed By: #### C BC ####[facility] [address]gas[address] [address]DrElana Flannery Erythrocyte distribution width (RBC) [Ratio] 14.0 % Normal 11.0-15.0 [facility] Comment on above: Performed By: #### C BC ####[facility] [address] [address]Dr. Errol Flannery Hematocrit (Bld) [Volume fraction] 34.5 % Critically low 36.0-48.0 [facility] Comment on above: Performed By: #### C BC ####[facility] [address]xcpr[address] [address]Dr. Errol Flannery Hemoglobin (Bld) [Mass/Vol] 11.1 g/dL Critically low 12.0-16.0 [facility] Comment on above: Performed By: #### C BC ####[facility] [address] [place], [place] [address]Dr. Errol Flannery IG # 0.02 10e3/ul Normal 0.00-0.03 [facility] Comment on above: Performed By: #### C BC ####[facility] [address] [place], [place] [address]Dr. Errol Flannery IG % 0.3 % Normal 0.0-0.5 [facility] Comment on above: Performed By: #### C BC ####[facility] [address] [place], [place] [address]Dr. Errol Flannery LYMPH # 1.6 103/ul Normal 1.2-3.8 [facility] Comment on above: Performed By: #### C BC ####[facility] [address]xs[address] [place], [place] [address]Dr. Pammissy Flannery Lymphocytes/100 WBC (Bld) 21.9 % Normal 20.5-60.0 [facility] Comment on above: Performed By: #### C BC ####[facility] [address] [address]Dr. Pammissy Flannery MANUAL DIFF REQ NO Normal [facility] Comment on above: Performed By: #### C BC ####[facility] [address] [place], [place] [address]Dr. Errol Flannery MCH (RBC) [Entitic mass] 30.1 pg Normal 26.7-34.0 [facility] Comment on above: Performed By: #### C BC ####[facility] Yeks[address]uf[address] [place], [place] [address]Dr. Errol Flannery MCHC (RBC) [Mass/Vol] 32.2 g/dL Normal 29.9-35.2 [facility] Comment on above: Performed By: #### C BC ####[facility] [address] [id number]. Errol Flannery MCV (RBC) [Entitic vol] 93.5 fL Normal 81.0-99.0 [facility] Comment on above: Performed By: #### C BC ####[facility] [address] [address]Dr. Errol Prudencio MONO # 0.7 103/ul Normal 0.3-0.8 [facility] Comment on above: Performed By: #### C BC ####[facility] [address] [address]Dr. Errol Flannery Monocytes/100 WBC (Bld) 9.4 % Normal 1.7-12.0 [facility] Comment on above: Performed By: #### C BC ####[facility] H[address]exos[address] [place], [place] [address]Dr. Errol Prudencio NEUT # 4.8 103/ul Normal 1.4-6.5 [facility] Comment on above: Performed By: #### C BC ####[facility] [address] [address]Dr. Errol Prudencio Neutrophils/100 WBC (Bld) 66.0 % Normal 43.0-75.0 [facility] Comment on above: Performed By: #### C BC ####[facility] [address]xc[address] [address]Dr. Errol Prudencio Platelet mean volume (Bld) [Entitic vol] 9.2 fL Critically low 9.5-13.5 [facility] Comment on above: Performed By: #### C BC ####[facility] [address] [address]Dr. Pammissy Prudencio PLT 240 103/ul Normal 150-450 [facility] Comment on above: Performed By: #### C BC ####[facility] [address]uz[address] [place] [address]Dr. Errol Flannery RBC 3.69 106/ul Critically low 4.20-5.40 [facility] Comment on above: Performed By: #### C BC ####[facility] [address]fw[address] [address]Dr. Errol Flannery WBC 7.3 103/ul Normal 4.0-11.0 [facility] Comment on above: Performed By: #### C BC ####[facility] [address] [place], [place] [address]Dr. Errol Flannery GI PANEL (PCR)on 04-11-2022 Adenovirus F 40/41 Not detected Normal NOT DETECTED [facility] Comment on above: Performed By: #### G IPANEL ####[facility] Yjcryydef[address] [place], [place] [address]Dr. Errol Flannery Astrovirus Not detected Normal NOT DETECTED [facility] Comment on above: Performed By: #### G IPANEL ####[facility] [address]oumz[address] [place], [place] [address]Dr. Errol Flannery C. Diff toxin A/B Detected Critically abnormal NOT DETECTED [facility] Comment on above: Performed By: #### G IPANEL ####[facility] [address]waltft[address] [place], [place] [address]Dr. Errol Flannery Campylobacter Not detected Normal NOT DETECTED [facility] Comment on above: Performed By: #### G IPANEL ####[facility] [address]oxlzxb[address] [place], [place] [address]Dr. Errol Flannery Cryptosporidium Not detected Normal NOT DETECTED [facility] Comment on above: Performed By: #### G IPANEL ####[facility] [address]yr[address]wr[address] [place], [place] [address]Dr. Errol Flannery Cyclos. Cayetanensis Not detected Normal NOT DETECTED [facility] Comment on above: Performed By: #### G IPANEL ####[facility] [address] [place], [place] [address]Dr. Errol Flannery E. Coli O157 Not Applicable Normal Not Applicable [facility] Comment on above: Performed By: #### G IPANEL ####[facility] [address]fwa[address] [place] [id number]. Errol Flannery E. histolytica Not detected Normal NOT DETECTED [facility] Comment on above: Performed By: #### G IPANEL ####[facility] Hejnkasocd[address] [place], [place] [address]Dr. Errol Flannery EAEC Not detected Normal NOT DETECTED [facility] Comment on above: Performed By: #### G IPANEL ####[facility] [address]new[address]iv[address] [place], [place] [address]Dr. Errol Flannery EIEC Not detected Normal NOT DETECTED [facility] Comment on above: Performed By: #### G IPANEL ####[facility] [id number] [place], [place] [address]Dr. Errol Flannery EPEC Not detected Normal NOT DETECTED The [facility] Comment on above: Performed By: #### G IPANEL ####[facility] Rnidyxkrst[address] [place], [place] [address]Dr. missy Flannery ETEC Not detected Normal NOT DETECTED [facility] Comment on above: Performed By: #### G IPANEL ####[facility] Blhtwugvpp[address] [place], [place] [address]Dr. Errol Flannery G. Lamblia Not detected Normal NOT DETECTED [facility] Comment on above: Performed By: #### G IPANEL ####[facility] Ecqhgjzyyk[address] [place], [place] [address]Dr. Errol Flannery GIPANEL CONTROLS PASSED Normal The [facility] Comment on above: Performed By: #### G IPANEL ####[facility] Uaohxhwdrv745[address] [place], [place] [address]Dr. Errol HUNTNL JUNAID HEADER GI PANEL BACTERIA Normal [facility] Comment on above: Performed By: #### G IPANEL ####[facility] Mlcihvmwwz[address] [place], [place] [address]Dr. Errol HUNTNLHD ECOLI GI PANEL DIARRHEAGENIC E.COLI / SHIGELLA Normal The [facility] Comment on above: Performed By: #### G IPANEL ####[facility] Xiqohlcrpp84[address] [place], [place] [address]Dr. Errol Flannery GIPHD INFO SEE BELOW Normal The [facility] Comment on above: Result Comment: EAEC - Enteroaggregative E. Coli EPEC- Enteropathogenic E. Coli ETEC- Enterotoxigenic E. Coli lt/st STEC- Shigella-like toxin-producing E. Coli stx1/stx2 EIEC- Shigella/Enteroinvasive E. Coli Performed By: #### G IPANEL ####[facility] Wmtvyuxjav170[address] [place], [place] [address]Dr. Errol Flannery GIPNLHD PARASITES GI PANEL PARASITES Normal The [facility] Comment on above: Performed By: #### G IPANEL ####[facility] Yiyfttnqsw564[address] [place], [place] [address]Dr. Errol Flannery G[facility] VIRUS GI PANEL VIRUSES Normal The [facility] Comment on above: Performed By: #### G IPANEL ####[facility] Yenuopfube52[address] [place], [place] [address]Dr. Errol Flannery Norovirus GI/GII Not detected Normal NOT DETECTED The [facility] Comment on above: Performed By: #### G IPANEL ####[facility] Jitcoyevjb[address] [place], [place] [address]Dr. Errol Flannery P. Shigelloides Not detected Normal NOT DETECTED The [facility] Comment on above: Performed By: #### G IPANEL ####[facility] Voaqfdowrz[address] [place], [place] [address]Dr. Errol Flannery Rotavirus A Not detected Normal NOT DETECTED The [facility] Comment on above: Performed By: #### G IPANEL ####[facility] Iimypygvmr[address] [place], [place] [address]Dr. Errol Flannery Salmonella Not detected Normal NOT DETECTED [facility] Comment on above: Performed By: #### G IPANEL ####[facility] Suycrjtxsj325[address] [place], [place] [address]Dr. Errol Flannery Sapovirus Not detected Normal NOT DETECTED [facility] Comment on above: Performed By: #### G IPANEL ####[facility] Bclyxgenui217[address] [place], [place] [address]Dr. Errol Flannery STEC Not detected Normal NOT DETECTED [facility] Comment on above: Performed By: #### G IPANEL ####[facility] [address] [place] [address]Dr. Errol Flannery Vibrio Not detected Normal NOT DETECTED [facility] Comment on above: Performed By: #### G IPANEL ####[facility] [address] [place] [address]Dr. Errol Flannery Vibrio Cholera Not detected Normal NOT DETECTED The [facility] Comment on above: Performed By: #### G IPANEL ####[facility] [address] [place] [address]Dr. Errol Flannery Y. Enterocolitica Not detected Normal NOT DETECTED The [facility] Comment on above: Performed By: #### G IPANEL ####[facility] Igwbkzokkm5[address] [place], [place] [address]Dr. Errol Flannery OCC BLD IMMUNOASSAYon 2021 OCCULT BLOOD Positive Abnormal NEGATIVE [facility] Comment on above: Performed By: #### O EDISON ####[facility] Rmiisgjbaa[address] [place], [place] [address]Dr. Errol Flannery PROF 14(COMP METB)on 022 Albumin [Mass/Vol] 2.1 g/dL Critically low 3.4-5.0 Th [facility] Comment on above: Performed By: #### C BC #### [facility] [address] [place] [address] Dr. Errol Flannery Albumin/Globulin [Mass ratio] 0.7 {ratio} Normal [facility] Comment on above: Performed By: #### C BC #### [facility] [address] [address] [address] Errol Flannery ALP [Catalytic activity/Vol] 60 U/L Normal 46-116 [facility] Comment on above: Performed By: #### C BC #### [facility] [address] [address] [address] Errol Flannery ALT [Catalytic activity/Vol] 30 U/L Normal 14-59 [facility] Comment on above: Performed By: #### C BC #### [facility] [address] [address] [address] Errol Flannery Anion gap [Moles/Vol] 8.9 mmol/L Normal [facility] Comment on above: Performed By: #### C BC #### [facility] [address] [address] [address] Errol Flannery AST [Catalytic activity/Vol] 20 U/L Normal 15-37 [facility] Comment on above: Performed By: #### C BC #### [facility] [address] [address] [address] Errol Flannery Bilirubin [Mass/Vol] 0.3 mg/dL Normal 0.2-1.0 [facility] Comment on above: Performed By: #### C BC #### [facility] [address] [place] [address] Dr. Errol Flannery Calcium [Mass/Vol] 8.2 mg/dL Critically low 8.5-10.1 Th [facility] Comment on above: Performed By: #### C BC #### [facility] [address] [address] [address] Errol Flannery Chloride [Moles/Vol] 109 mmol/L Critically high 98-107 [facility] Comment on above: Performed By: #### C BC #### [facility] [address] [place] [address] Dr. Errol Flannery CO2 [Moles/Vol] 27.7 mmol/L Normal 21.0-32.0 [facility] Comment on above: Performed By: #### C BC #### [facility] [address] [address] [address] Errol Flannery Creatinine [Mass/Vol] 1.03 mg/dL Critically high 0.55-1.02 [facility] Comment on above: Performed By: #### C BC #### [facility] [address] [place] [address] Dr. Errol Flannery EGFR-AF [place] >60 Normal >=60 [facility] Comment on above: Performed By: #### C BC #### [facility] [address] [address] [address] Errol Flannery EGFR-NON AF [place] 51 mL/min/1.73m2 Critically low >=60 [facility] Comment on above: Performed By: #### C BC #### [facility] [address] [place] [address] Dr. Errol Flannery Globulin (S) [Mass/Vol] 3.0 g/dL Normal [facility] Comment on above: Performed By: #### C BC #### [facility] [address] [address] [address] Errol Flannery Glucose [Mass/Vol] 91 mg/dL Normal 74-106 [facility] Comment on above: Performed By: #### C BC #### [facility] [address] [place] [address] Dr. Errol Flannery Potassium [Moles/Vol] 3.6 mmol/L Normal 3.5-5.1 [facility] Comment on above: Performed By: #### C BC #### [facility] [address] [place] [address] Dr. Errol Flannery Protein [Mass/Vol] 5.1 g/dL Critically low 6.4-8.2 Th [facility] Comment on above: Performed By: #### C BC #### [facility] [address] [place] [address] Dr. Errol Flannery Sodium [Moles/Vol] 142 mmol/L Normal 136-145 [facility] Comment on above: Performed By: #### C BC #### [facility] [address] [place] [address] Dr. Errol Flannery Urea nitrogen [Mass/Vol] 11.0 mg/dL Normal 7.0-18.0 [facility] Comment on above: Performed By: #### C BC #### [facility] [address] [place] [address] Dr. Errol Flannery Urea nitrogen/Creatinine [Mass ratio] 10.7 mg/mg Normal [facility] Comment on above: Performed By: #### C BC #### [facility] [address] [place] [address] Dr. Errol Flannery CBC AUTO DIFFon 04-10-2022 BASO # 0.0 103/ul Normal 0.0-0.1 [facility] Comment on above: Performed By: #### C BC #### [facility] [address] [place] [address] Dr. Errol Flannery Basophils/100 WBC (Bld) 0.4 % Normal 0.2-2.0 [facility] Comment on above: Performed By: #### C BC #### [facility] [address] [place] [address] Dr. Errol Flannery EO # 0.1 103/ul Normal 0.0-0.7 [facility] Comment on above: Performed By: #### C BC #### [facility] [address] [place] [address] Dr. Errol Flannery Eosinophils/100 WBC (Bld) 2.1 % Normal 0.9-7.0 [facility] Comment on above: Performed By: #### C BC #### [facility] [address] [place] [address] Dr. Errol Flannery Erythrocyte distribution width (RBC) [Ratio] 13.8 % Normal 11.0-15.0 [facility] Comment on above: Performed By: #### C BC #### [facility] [address] [place] [address] Dr. Errol Flannery Hematocrit (Bld) [Volume fraction] 35.9 % Critically low 36.0-48.0 [facility] Comment on above: Performed By: #### C BC #### [facility] [address] [place] [address] Dr. Errol Flannery Hemoglobin (Bld) [Mass/Vol] 11.6 g/dL Critically low 12.0-16.0 [facility] Comment on above: Performed By: #### C BC #### [facility] [address] [place] [address] Dr. Errol Flannery IG # 0.03 10e3/ul Normal 0.00-0.03 [facility] Comment on above: Performed By: #### C BC #### [facility] [address] [place] [address] Dr. Errol Flannery IG % 0.5 % Normal 0.0-0.5 [facility] Comment on above: Performed By: #### C BC #### [facility] [address] [place] [address] Dr. Errol Flannery LYMPH # 1.2 103/ul Normal 1.2-3.8 [facility] Comment on above: Performed By: #### C BC #### [facility] [address] [place] [address] Dr. Errol Flannery Lymphocytes/100 WBC (Bld) 21.7 % Normal 20.5-60.0 [facility] Comment on above: Performed By: #### C BC #### [facility] [address] [place] [address] Dr. Errol Flannery MANUAL DIFF REQ NO Normal [facility] Comment on above: Performed By: #### C BC #### [facility] [address] [place] [address] Dr. Errol Flannery MCH (RBC) [Entitic mass] 30.0 pg Normal 26.7-34.0 [facility] Comment on above: Performed By: #### C BC #### [facility] [address] [place] [address] Dr. Errol Flannery MCHC (RBC) [Mass/Vol] 32.3 g/dL Normal 29.9-35.2 [facility] Comment on above: Performed By: #### C BC #### [facility] [address] [place] [address] Dr. Errol Flannery MCV (RBC) [Entitic vol] 92.8 fL Normal 81.0-99.0 [facility] Comment on above: Performed By: #### C BC #### [facility] [address] [place] [address] Dr. Errol Flannery MONO # 0.6 103/ul Normal 0.3-0.8 [facility] Comment on above: Performed By: #### C BC #### [facility] [address] [place] [address] Dr. Errol Flannery Monocytes/100 WBC (Bld) 10.5 % Normal 1.7-12.0 [facility] Comment on above: Performed By: #### C BC #### [facility] [address] [place] [address] Dr. Errol Flannery NEUT # 3.6 103/ul Normal 1.4-6.5 [facility] Comment on above: Performed By: #### C BC #### [facility] [address] [place] [address] Dr. Errol Flannery Neutrophils/100 WBC (Bld) 64.8 % Normal 43.0-75.0 [facility] Comment on above: Performed By: #### C BC #### [facility] [address] [place] [address] Dr. Errol Flannery Platelet mean volume (Bld) [Entitic vol] 9.0 fL Critically low 9.5-13.5 [facility] Comment on above: Performed By: #### C BC #### [facility] [address] [place] [address] Dr. Errol Flannery PLT 250 103/ul Normal 150-450 [facility] Comment on above: Performed By: #### C BC #### [facility] [address] [place] [address] Dr. Errol Flannery RBC 3.87 106/ul Critically low 4.20-5.40 [facility] Comment on above: Performed By: #### C BC #### [facility] [address] [place] [address] Dr. Errol Flannery WBC 5.6 103/ul Normal 4.0-11.0 [facility] Comment on above: Performed By: #### C BC #### [facility] [address] [place] [address] Dr. Errol Flannery PROF 14(COMP METB)on 022 Albumin [Mass/Vol] 2.2 g/dL Critically low 3.4-5.0 Th [facility] Comment on above: Performed By: #### L ACT #### [facility] [address] [place] [address] Dr. Errol Flannery Albumin/Globulin [Mass ratio] 0.8 {ratio} Normal [facility] Comment on above: Performed By: #### L ACT #### [facility] [address] [address] [address] Errol Flannery ALP [Catalytic activity/Vol] 67 U/L Normal 46-116 [facility] Comment on above: Performed By: #### L ACT #### [facility] [address] [address] [address] Errol Flannery ALT [Catalytic activity/Vol] 27 U/L Normal 14-59 [facility] Comment on above: Performed By: #### L ACT #### [facility] [address] [address] [address] Errol Flannery Anion gap [Moles/Vol] 8.9 mmol/L Normal [facility] Comment on above: Performed By: #### L ACT #### [facility] [address] [place] [address] Dr. Errol Flannery AST [Catalytic activity/Vol] 18 U/L Normal 15-37 [facility] Comment on above: Performed By: #### L ACT #### [facility] [address] [address] [address] Errol Flannery Bilirubin [Mass/Vol] 0.3 mg/dL Normal 0.2-1.0 [facility] Comment on above: Performed By: #### L ACT #### [facility] [address] [address] [address] Errol Flannery Calcium [Mass/Vol] 8.3 mg/dL Critically low 8.5-10.1 Th [facility] Comment on above: Performed By: #### L ACT #### [facility] [address] [address] [address] Errol Flannery Chloride [Moles/Vol] 110 mmol/L Critically high 98-107 [facility] Comment on above: Performed By: #### L ACT #### [facility] [address] [address] [address] Errol Flannery CO2 [Moles/Vol] 26.6 mmol/L Normal 21.0-32.0 [facility] Comment on above: Performed By: #### L ACT #### [facility] [address] [address] [address] Errol Flannery Creatinine [Mass/Vol] 0.95 mg/dL Normal 0.55-1.02 [facility] Comment on above: Performed By: #### L ACT #### [facility] [address] [address] [address] Errol Flannery EGFR-AF [place] >60 Normal >=60 [facility] Comment on above: Performed By: #### L ACT #### [facility] [address] [address] [address] Errol Flannery EGFR-NON AF [place] 56 mL/min/1.73m2 Critically low >=60 [facility] Comment on above: Performed By: #### L ACT #### [facility] [address] [address] [address] Errol Flannery Globulin (S) [Mass/Vol] 2.9 g/dL Normal [facility] Comment on above: Performed By: #### L ACT #### [facility] [address] [address] [address] Errol Flannery Glucose [Mass/Vol] 93 mg/dL Normal 74-106 [facility] Comment on above: Performed By: #### L ACT #### [facility] [address] [address] [address] Errol Flannery Potassium [Moles/Vol] 3.5 mmol/L Normal 3.5-5.1 [facility] Comment on above: Performed By: #### L ACT #### [facility] [address] [address] [address] Errol Flannery Protein [Mass/Vol] 5.1 g/dL Critically low 6.4-8.2 Th [facility] Comment on above: Performed By: #### L ACT #### [facility] [address] [address] [address] Errol Flannery Sodium [Moles/Vol] 142 mmol/L Normal 136-145 [facility] Comment on above: Performed By: #### L ACT #### [facility] [address] [place] [address] Dr. Errol Flannery Urea nitrogen [Mass/Vol] 10.0 mg/dL Normal 7.0-18.0 [facility] Comment on above: Performed By: #### L ACT #### [facility] [address] [place] [address] Dr. Errol Flannery Urea nitrogen/Creatinine [Mass ratio] 10.5 mg/mg Normal [facility] Comment on above: Performed By: #### L ACT #### [facility] [address] [place] [address] Dr. Errol Flannery CBC AUTO DIFFon 04-09-2022 BASO # 0.0 103/ul Normal 0.0-0.1 [facility] Comment on above: Performed By: #### C BC #### [facility] [address] [place] [address] Dr. Errol Flannery Basophils/100 WBC (Bld) 0.3 % Normal 0.2-2.0 [facility] Comment on above: Performed By: #### C BC #### [facility] [address] [place] [address] Dr. Errol Flannery EO # 0.1 103/ul Normal 0.0-0.7 [facility] Comment on above: Performed By: #### C BC #### [facility] [address] [place] [address] Dr. Errol Flannery Eosinophils/100 WBC (Bld) 1.9 % Normal 0.9-7.0 [facility] Comment on above: Performed By: #### C BC #### [facility] [address] [place] [address] Dr. Errol Flannery Erythrocyte distribution width (RBC) [Ratio] 13.5 % Normal 11.0-15.0 [facility] Comment on above: Performed By: #### C BC #### [facility] [address] [place] [address] Dr. Errol Flannery Hematocrit (Bld) [Volume fraction] 34.8 % Critically low 36.0-48.0 [facility] Comment on above: Performed By: #### C BC #### [facility] [address] [place] [address] Dr. Errol Flannery Hemoglobin (Bld) [Mass/Vol] 11.3 g/dL Critically low 12.0-16.0 [facility] Comment on above: Performed By: #### C BC #### [facility] [address] [place] [address] Dr. Errol Flannery IG # 0.02 10e3/ul Normal 0.00-0.03 [facility] Comment on above: Performed By: #### C BC #### [facility] [address] [place] [address] Dr. Errol Flannery IG % 0.3 % Normal 0.0-0.5 [facility] Comment on above: Performed By: #### C BC #### [facility] [address] [place] [address] Dr. Errol Flannery LYMPH # 1.4 103/ul Normal 1.2-3.8 [facility] Comment on above: Performed By: #### C BC #### [facility] [address] [place] [address] Dr. Errol Flannery Lymphocytes/100 WBC (Bld) 23.8 % Normal 20.5-60.0 [facility] Comment on above: Performed By: #### C BC #### [facility] [address] [place] [address] Dr. Errol Flannery MANUAL DIFF REQ NO Normal [facility] Comment on above: Performed By: #### C BC #### [facility] [address] [place] [address] Dr. Errol Flannery MCH (RBC) [Entitic mass] 30.4 pg Normal 26.7-34.0 [facility] Comment on above: Performed By: #### C BC #### [facility] [address] [place] [address] Dr. Errol Flannery MCHC (RBC) [Mass/Vol] 32.5 g/dL Normal 29.9-35.2 [facility] Comment on above: Performed By: #### C BC #### [facility] [address] [address] [address] Errol Flannery MCV (RBC) [Entitic vol] 93.5 fL Normal 81.0-99.0 [facility] Comment on above: Performed By: #### C BC #### [facility] [address] [address] [address] Errol Flannery MONO # 0.6 103/ul Normal 0.3-0.8 [facility] Comment on above: Performed By: #### C BC #### [facility] [address] [place] [address] Dr. Errol Flannery Monocytes/100 WBC (Bld) 9.3 % Normal 1.7-12.0 [facility] Comment on above: Performed By: #### C BC #### [facility] [address] [place] [address] Dr. Errol Flannery NEUT # 3.8 103/ul Normal 1.4-6.5 [facility] Comment on above: Performed By: #### C BC #### [facility] [address] [place] [address] Dr. Errol Flannery Neutrophils/100 WBC (Bld) 64.4 % Normal 43.0-75.0 [facility] Comment on above: Performed By: #### C BC #### [facility] [address] [place] [address] Dr. Errol Flannery Platelet mean volume (Bld) [Entitic vol] 9.2 fL Critically low 9.5-13.5 [facility] Comment on above: Performed By: #### C BC #### [facility] [address] [place] [address] Dr. Errol Flannery PLT 233 103/ul Normal 150-450 [facility] Comment on above: Performed By: #### C BC #### [facility] [address] [place], [place] [id number] Dr. Errol Flannery RBC 3.72 106/ul Critically low 4.20-5.40 [facility] Comment on above: Performed By: #### C BC #### [facility] [address] [place], [place] [id number] Dr. Errol Flannery WBC 5.9 103/ul Normal 4.0-11.0 [facility] Comment on above: Performed By: #### C BC #### [facility] [address] [place] [address] Dr. Errol Flannery PROF 14(COMP METB)on 022 Albumin [Mass/Vol] 2.2 g/dL Critically low 3.4-5.0 [facility] Comment on above: Performed By: #### L ACT #### [facility] [address] [place] [address] Dr. Errol Flannery Albumin/Globulin [Mass ratio] 0.8 {ratio} Normal [facility] Comment on above: Performed By: #### L ACT #### [facility] [address] [place] [address] Dr. Errol Flannery ALP [Catalytic activity/Vol] 61 U/L Normal 46-116 [facility] Comment on above: Performed By: #### L ACT #### [facility] [address] [place] [address] Dr. Errol Flannery ALT [Catalytic activity/Vol] 28 U/L Normal 14-59 [facility] Comment on above: Performed By: #### L ACT #### [facility] [address] [place] [address] Dr. Errol Flannery Anion gap [Moles/Vol] 8.6 mmol/L Normal [facility] Comment on above: Performed By: #### L ACT #### [facility] [address] [place] [address] Dr. Errol Flannery AST [Catalytic activity/Vol] 14 U/L Critically low 15-37 [facility] Comment on above: Performed By: #### L ACT #### [facility] [address] [place] [address] Dr. Errol Flannery Bilirubin [Mass/Vol] 0.2 mg/dL Normal 0.2-1.0 [facility] Comment on above: Performed By: #### L ACT #### [facility] [address] [place] [address] Dr. Errol Flannery Calcium [Mass/Vol] 7.9 mg/dL Critically low 8.5-10.1 Th [facility] Comment on above: Performed By: #### L ACT #### [facility] [address] [address] [address] Errol Flannery Chloride [Moles/Vol] 109 mmol/L Critically high 98-107 [facility] Comment on above: Performed By: #### L ACT #### [facility] [address] [address] [address] Errol Flannery CO2 [Moles/Vol] 28.6 mmol/L Normal 21.0-32.0 [facility] Comment on above: Performed By: #### L ACT #### [facility] [address] [place] [address] Dr. Errol Flannery Creatinine [Mass/Vol] 1.05 mg/dL Critically high 0.55-1.02 [facility] Comment on above: Performed By: #### L ACT #### [facility] [address] [place] [address] Dr. Errol Flannery EGFR-AF [place] 60 mL/min/1.73m2 Normal >=60 Th [facility] Comment on above: Performed By: #### L ACT #### [facility] [address] [place] [address] Dr. Errol Flannery EGFR-NON AF [place] 50 mL/min/1.73m2 Critically low >=60 [facility] Comment on above: Performed By: #### L ACT #### [facility] [address] [address] [address] Errol Flannery Globulin (S) [Mass/Vol] 2.8 g/dL Normal [facility] Comment on above: Performed By: #### L ACT #### [facility] [address] [address] [address] Errol Flannery Glucose [Mass/Vol] 111 mg/dL Critically high 74-[address] [facility] Comment on above: Performed By: #### L ACT #### [facility] [address] [address] [address] Errol Flannery Potassium [Moles/Vol] 3.2 mmol/L Critically low 3.5-5.1 [facility] Comment on above: Performed By: #### L ACT #### [facility] [address] [place] [address] Dr. Errol Flannery Protein [Mass/Vol] 5.0 g/dL Critically low 6.4-8.2 Th e [facility] Comment on above: Performed By: #### L ACT #### [facility] [address] [place] [address] Dr. Errol Flannery Sodium [Moles/Vol] 143 mmol/L Normal 136-145 [facility] Comment on above: Performed By: #### L ACT #### [facility] [address] [place] [address] Dr. Errol Flannery Urea nitrogen [Mass/Vol] 9.0 mg/dL Normal 7.0-18.0 [facility] Comment on above: Performed By: #### L ACT #### [facility] [address] [place] [address] Dr. Errol Flannery Urea nitrogen/Creatinine [Mass ratio] 8.6 mg/mg Normal [facility] Comment on above: Performed By: #### L ACT #### [facility] [address] [place] [address] Dr. Errol Flannery CBC AUTO DIFFon 04-08-2022 BASO # 0.0 103/ul Normal 0.0-0.1 [facility] Comment on above: Performed By: #### C BC ####[facility] [address] [address]Dr. Errol Flannery Basophils/100 WBC (Bld) 0.5 % Normal 0.2-2.0 [facility] Comment on above: Performed By: #### C BC ####[facility] [address] [address]Dr. Errol Flannery EO # 0.1 103/ul Normal 0.0-0.7 [facility] Comment on above: Performed By: #### C BC ####[facility] [address] [address]Dr. Errol Flannery Eosinophils/100 WBC (Bld) 1.8 % Normal 0.9-7.0 [facility] Comment on above: Performed By: #### C BC ####[facility] Gztk[address] [place], [place] [address]Dr. Errol Flannery Erythrocyte distribution width (RBC) [Ratio] 13.4 % Normal 11.0-15.0 [facility] Comment on above: Performed By: #### C BC ####[facility] [address] [place], [place] [address]DrElana Flannery Hematocrit (Bld) [Volume fraction] 34.3 % Critically low 36.0-48.0 [facility] Comment on above: Performed By: #### C BC ####[facility] [address] [place], [place] [address]DrElana Flannery Hemoglobin (Bld) [Mass/Vol] 11.1 g/dL Critically low 12.0-16.0 [facility] Comment on above: Performed By: #### C BC ####[facility] [address] [place], [place] [address]Dr. Errol Flannery IG # 0.01 10e3/ul Normal 0.00-0.03 [facility] Comment on above: Performed By: #### C BC ####[facility] P[address]bpnlra[address] [place], [place] [address]DrElana Flannery IG % 0.2 % Normal 0.0-0.5 [facility] Comment on above: Performed By: #### C BC ####[facility] C[address]xfcw[address] [place], [place] [address]DrElana Flannery LYMPH # 1.4 103/ul Normal 1.2-3.8 [facility] Comment on above: Performed By: #### C BC ####[facility] Igsxy[address]exh[address] [place], [place] [address]DrElana Flannery Lymphocytes/100 WBC (Bld) 32.4 % Normal 20.5-60.0 [facility] Comment on above: Performed By: #### C BC ####[facility] Uhbdnwpidl[address] [place], [place] [address]DrElana Flannery MANUAL DIFF REQ NO Normal [facility] Comment on above: Performed By: #### C BC ####[facility] [address] [id number] Flannery MCH (RBC) [Entitic mass] 30.4 pg Normal 26.7-34.0 [facility] Comment on above: Performed By: #### C BC ####[facility] [address] [address]DrElana Flannery MCHC (RBC) [Mass/Vol] 32.4 g/dL Normal 29.9-35.2 [facility] Comment on above: Performed By: #### C BC ####[facility] M[address]ebzqx[address] [place], [place] [address]DrElana Flannery MCV (RBC) [Entitic vol] 94.0 fL Normal 81.0-99.0 [facility] Comment on above: Performed By: #### C BC ####[facility] [address] [place], [place] [address]DrElana Flannery MONO # 0.5 103/ul Normal 0.3-0.8 [facility] Comment on above: Performed By: #### C BC ####[facility] N[address] [place], [place] [address]DrElana Flannery Monocytes/100 WBC (Bld) 10.4 % Normal 1.7-12.0 [facility] Comment on above: Performed By: #### C BC ####[facility] Y[address]rmzt[address] [place], [place] [address]DrElana Flannery NEUT # 2.4 103/ul Normal 1.4-6.5 [facility] Comment on above: Performed By: #### C BC ####[facility] Cks[address]wcnxj[address] [place], [place] [address]DrElana Flannery Neutrophils/100 WBC (Bld) 54.7 % Normal 43.0-75.0 [facility] Comment on above: Performed By: #### C BC ####[facility] G[address] [place], [place] [address]DrElana Flannery Platelet mean volume (Bld) [Entitic vol] 9.3 fL Critically low 9.5-13.5 [facility] Comment on above: Performed By: #### C BC ####[facility] [address] [address]Dr. Errol Flannery PLT 218 103/ul Normal 150-450 [facility] Comment on above: Performed By: #### C BC ####[facility] [address] [address]Dr. Errol Flannery RBC 3.65 106/ul Critically low 4.20-5.40 [facility] Comment on above: Performed By: #### C BC ####[facility] [address] [address]Dr. Errol Flannery WBC 4.4 103/ul Normal 4.0-11.0 [facility] Comment on above: Performed By: #### C BC ####[facility] [address] [address]DrElana Flannery PROF 14(COMP METB)on 022 Albumin [Mass/Vol] 2.2 g/dL Critically low 3.4-5.0 [facility] Comment on above: Performed By: #### C MP ####[facility] Mipjeyezxy[address] [place], [place] [address]Dr. Errol Flannery Albumin/Globulin [Mass ratio] 0.8 {ratio} Normal [facility] Comment on above: Performed By: #### C MP ####[facility] Zibadqmsle[address] [place], [place] [address]Dr. Errol Flannery ALP [Catalytic activity/Vol] 64 U/L Normal 46-116 [facility] Comment on above: Performed By: #### C MP ####[facility] Clemrwacjg[address] [place], [place] [address]Dr. Errol Flannery ALT [Catalytic activity/Vol] 34 U/L Normal 14-59 [facility] Comment on above: Performed By: #### C MP ####[facility] Oqanigyrut[address] [place], [place] [address]Dr. Errol Flannery Anion gap [Moles/Vol] 8.1 mmol/L Normal [facility] Comment on above: Performed By: #### C MP ####[facility] Th[address]zvalcz[address] [place], [place] [address]Dr. Errol Prudencio AST [Catalytic activity/Vol] 14 U/L Critically low 15-37 [facility] Comment on above: Performed By: #### C MP ####[facility] Mwcborfgnx[address] [place], [place] [address]Dr. Errol Flannery Bilirubin [Mass/Vol] 0.3 mg/dL Normal 0.2-1.0 [facility] Comment on above: Performed By: #### C MP ####[facility] Zmxjzgrh[address] [place], [place] [address]Dr. Errol Flannery Calcium [Mass/Vol] 8.1 mg/dL Critically low 8.5-10.1 Th [facility] Comment on above: Performed By: #### C MP ####[facility] H[address]trqvr[address] [place], [place] [address]Dr. Errol Flannery Chloride [Moles/Vol] 110 mmol/L Critically high 98-107 [facility] Comment on above: Performed By: #### C MP ####[facility] Fxqgwlhaos[address] [place], [place] [address]Dr. Errol Flannery CO2 [Moles/Vol] 28.0 mmol/L Normal 21.0-32.0 [facility] Comment on above: Performed By: #### C MP ####[facility] Hqzgifvamw[address] [place], [place] [address]Dr. Errol Flannery Creatinine [Mass/Vol] 1.00 mg/dL Normal 0.55-1.02 [facility] Comment on above: Performed By: #### C MP ####[facility] Ylcupfnvyf[address] [place], [place] [address]Dr. Errol Flannery EGFR-AF [place] >60 Normal >=60 [facility] Comment on above: Performed By: #### C MP ####[facility] G[address]bjafcfo[address] [place], [place] [address]Dr. Errol Flannery EGFR-NON AF [place] 52 mL/min/1.73m2 Critically low >=60 [facility] Comment on above: Performed By: #### C MP ####[facility] [address] [address]Dr. Errol Flannery Globulin (S) [Mass/Vol] 2.7 g/dL Normal [facility] Comment on above: Performed By: #### C MP ####[facility] [address] [address]Dr. Errol Flannery Glucose [Mass/Vol] 88 mg/dL Normal 74-106 [facility] Comment on above: Performed By: #### C MP ####[facility] [address] [address]Dr. Pammissy Prudencio Potassium [Moles/Vol] 3.1 mmol/L Critically low 3.5-5.1 [facility] Comment on above: Performed By: #### C MP ####[facility] Us[address]ubkoxpc[address] [place], [place] [address]Dr. Errol Prudencio Protein [Mass/Vol] 4.9 g/dL Critically low 6.4-8.2 [facility] Comment on above: Performed By: #### C MP ####[facility] Arc[address]how[address] [place], [place] [address]Dr. Errol Prudencio Sodium [Moles/Vol] 143 mmol/L Normal 136-145 [facility] Comment on above: Performed By: #### C MP ####[facility] Adqwponiqg[address] [place], [place] [address]Dr. Errol Prudencio Urea nitrogen [Mass/Vol] 5.0 mg/dL Critically low 7.0-18.0 [facility] Comment on above: Performed By: #### C MP ####[facility] [address] [place], [place] [address]Dr. Pammissy Prudencio Urea nitrogen/Creatinine [Mass ratio] 5.0 mg/mg Normal [facility] Comment on above: Performed By: #### C MP ####[facility] [address]qa[address] [place], [place] [address]Dr. Errol Flannery CBC AUTO DIFFon 04-07-2022 BASO # 0.0 103/ul Normal 0.0-0.1 [facility] Comment on above: Performed By: #### L ACT #### [facility] [address] [place] [address] Dr. Errol Flannery Basophils/100 WBC (Bld) 0.7 % Normal 0.2-2.0 [facility] Comment on above: Performed By: #### L ACT #### [facility] [address] [place] [address] Dr. Errol Flannery EO # 0.1 103/ul Normal 0.0-0.7 [facility] Comment on above: Performed By: #### L ACT #### [facility] [address] [place] [address] Dr. Errol Flannery Eosinophils/100 WBC (Bld) 2.0 % Normal 0.9-7.0 [facility] Comment on above: Performed By: #### L ACT #### [facility] [address] [place] [address] Dr. Errol Flannery Erythrocyte distribution width (RBC) [Ratio] 13.6 % Normal 11.0-15.0 [facility] Comment on above: Performed By: #### L ACT #### [facility] [address] [place] [address] Dr. Errol Flannery Hematocrit (Bld) [Volume fraction] 34.3 % Critically low 36.0-48.0 [facility] Comment on above: Performed By: #### L ACT #### [facility] [address] [place] [address] Dr. Errol Flannery Hemoglobin (Bld) [Mass/Vol] 11.1 g/dL Critically low 12.0-16.0 [facility] Comment on above: Performed By: #### L ACT #### [facility] [address] [place] [address] Dr. Errol Flannery IG # 0.02 10e3/ul Normal 0.00-0.03 [facility] Comment on above: Performed By: #### L ACT #### [facility] [address] [place] [address] Dr. Errol Flannery IG % 0.4 % Normal 0.0-0.5 [facility] Comment on above: Performed By: #### L ACT #### [facility] [address] [place] [address] Dr. Errol Flannery LYMPH # 1.4 103/ul Normal 1.2-3.8 [facility] Comment on above: Performed By: #### L ACT #### [facility] [address] [place] [address] Dr. Errol Flannery Lymphocytes/100 WBC (Bld) 30.4 % Normal 20.5-60.0 [facility] Comment on above: Performed By: #### L ACT #### [facility] [address] [place] [address] Dr. Errol Flannery MANUAL DIFF REQ NO Normal [facility] Comment on above: Performed By: #### L ACT #### [facility] [address] [place] [address] Dr. Errol Flannery MCH (RBC) [Entitic mass] 30.8 pg Normal 26.7-34.0 [facility] Comment on above: Performed By: #### L ACT #### [facility] [address] [place] [address] Dr. Errol Flannery MCHC (RBC) [Mass/Vol] 32.4 g/dL Normal 29.9-35.2 [facility] Comment on above: Performed By: #### L ACT #### [facility] [address] [place] [address] Dr. Errol Flannery MCV (RBC) [Entitic vol] 95.3 fL Normal 81.0-99.0 [facility] Comment on above: Performed By: #### L ACT #### [facility] [address] [place] [address] Dr. Errol Flannery MONO # 0.4 103/ul Normal 0.3-0.8 [facility] Comment on above: Performed By: #### L ACT #### [facility] [address] [place] [address] Dr. Errol Flannery Monocytes/100 WBC (Bld) 9.3 % Normal 1.7-12.0 [facility] Comment on above: Performed By: #### L ACT #### [facility] [address] [address] [address] Errol Flannery NEUT # 2.6 103/ul Normal 1.4-6.5 [facility] Comment on above: Performed By: #### L ACT #### [facility] [address] [address] [address] Errol Flannery Neutrophils/100 WBC (Bld) 57.2 % Normal 43.0-75.0 [facility] Comment on above: Performed By: #### L ACT #### [facility] [address] [address] [address] Errol Flannery Platelet mean volume (Bld) [Entitic vol] 9.7 fL Normal 9.5-13.5 [facility] Comment on above: Performed By: #### L ACT #### [facility] [address] [place] [address] Dr. Errol Flannery PLT 220 103/ul Normal 150-450 [facility] Comment on above: Performed By: #### L ACT #### [facility] [address] [address] [address] Errol Flannery RBC 3.60 106/ul Critically low 4.20-5.40 [facility] Comment on above: Performed By: #### L ACT #### [facility] [address] [place] [address] Dr. Errol Flannery WBC 4.6 103/ul Normal 4.0-11.0 [facility] Comment on above: Performed By: #### L ACT #### [facility] [address] [place] [address] ABD/PELV W CONon [...] ALEXANDER DUMONT Date: 2022-04-07 12:50 Normal [facility] PROF 14(COMP METB)on 022 Albumin [Mass/Vol] 2.2 g/dL Critically low 3.4-5.0 Th e [facility] Comment on above: Performed By: #### C MP ####[facility] [address] [id number] Flannery Albumin/Globulin [Mass ratio] 0.8 {ratio} Normal [facility] Comment on above: Performed By: #### C MP ####[facility] [address] [id number]. Errol Prudencio ALP [Catalytic activity/Vol] 70 U/L Normal 46-116 [facility] Comment on above: Performed By: #### C MP ####[facility] [address] [address]Dr. Errol Prudencio ALT [Catalytic activity/Vol] 40 U/L Normal 14-59 [facility] Comment on above: Performed By: #### C MP ####[facility] [address] [place], [place] [address]Dr. Errol Prudencio Anion gap [Moles/Vol] 10.0 mmol/L Normal Th [facility] Comment on above: Performed By: #### C MP ####[facility] [address]rleblim[address] [place], [place] [address]Dr. Errol Prudencio AST [Catalytic activity/Vol] 16 U/L Normal 15-37 [facility] Comment on above: Performed By: #### C MP ####[facility] [address] [place], [place] [address]Dr. Errol Prudencio Bilirubin [Mass/Vol] 0.4 mg/dL Normal 0.2-1.0 [facility] Comment on above: Performed By: #### C MP ####[facility] [address]mft[address] [place], [place] [address]Dr. Errol Prudencio Calcium [Mass/Vol] 8.4 mg/dL Critically low 8.5-10.1 [facility] Comment on above: Performed By: #### C MP ####[facility] Npbbecstok[address] [place], [place] [address]Dr. Pammissy Flannery Chloride [Moles/Vol] 111 mmol/L Critically high 98-107 [facility] Comment on above: Performed By: #### C MP ####[facility] T[address]qggxh[address] [place], [place] [address]Dr. Errol Flannery CO2 [Moles/Vol] 26.3 mmol/L Normal 21.0-32.0 [facility] Comment on above: Performed By: #### C MP ####[facility] [address] [place], [place] [address]DrElana Flannery Creatinine [Mass/Vol] 1.05 mg/dL Critically high 0.55-1.02 [facility] Comment on above: Performed By: #### C MP ####[facility] [address] [address]Dr. Pammissy Prudencio EGFR-AF [place] 60 mL/min/1.73m2 Normal >=60 [facility] Comment on above: Performed By: #### C MP ####[facility] [address] [address]Dr. Errol Flannery EGFR-NON AF [place] 50 mL/min/1.73m2 Critically low >=60 [facility] Comment on above: Performed By: #### C MP ####[facility] [address] [place], [place] [address]Dr. Errol Flannery Globulin (S) [Mass/Vol] 2.8 g/dL Normal [facility] Comment on above: Performed By: #### C MP ####[facility] Smttiizuid[address] [place], [place] [address]Dr. Errol Flannery Glucose [Mass/Vol] 95 mg/dL Normal 74-106 [facility] Comment on above: Performed By: #### C MP ####[facility] [address]kg[address]uv[address] [place], [place] [address]Dr. Errol Flannery Potassium [Moles/Vol] 3.3 mmol/L Critically low 3.5-5.1 [facility] Comment on above: Performed By: #### C MP ####[facility] [address]ocsbj[address] [place], [place] [address]Dr. Errol Flannery Protein [Mass/Vol] 5.0 g/dL Critically low 6.4-8.2 [facility] Comment on above: Performed By: #### C MP ####[facility] [address]kmohe[address] [place], [place] [address]Dr. Errol Flannery Sodium [Moles/Vol] 144 mmol/L Normal 136-145 [facility] Comment on above: Performed By: #### C MP ####[facility] J[address]nssfope[address] [place], [place] [address]Dr. Errol Flannery Urea nitrogen [Mass/Vol] 10.0 mg/dL Normal 7.0-18.0 [facility] Comment on above: Performed By: #### C MP ####[facility] [address] [address]Dr. Errol Flannery Urea nitrogen/Creatinine [Mass ratio] 9.5 mg/mg Normal [facility] Comment on above: Performed By: #### C MP ####[facility] [address] [address]Dr. Errol Flannery CBC AUTO DIFFon 04-06-2022 BASO # 0.0 103/ul Normal 0.0-0.1 [facility] Comment on above: Performed By: #### C BC #### [facility] [address] [place] [address] Dr. Errol Flannery Basophils/100 WBC (Bld) 0.3 % Normal 0.2-2.0 [facility] Comment on above: Performed By: #### C BC #### [facility] [address] [place] [address] Dr. Errol Flannery EO # 0.0 103/ul Normal 0.0-0.7 [facility] Comment on above: Performed By: #### C BC #### [facility] [address] [place] [address] Dr. Errol Flannery Eosinophils/100 WBC (Bld) 0.4 % Critically low 0.9-7.0 [facility] Comment on above: Performed By: #### C BC #### [facility] [address] [place] [address] Dr. Errol Flannery Erythrocyte distribution width (RBC) [Ratio] 13.6 % Normal 11.0-15.0 [facility] Comment on above: Performed By: #### C BC #### [facility] [address] [place] [address] Dr. Errol Flannery Hematocrit (Bld) [Volume fraction] 35.7 % Critically low 36.0-48.0 [facility] Comment on above: Performed By: #### C BC #### [facility] [facility] [address] [place] [address] Dr. Errol Flannery Hemoglobin (Bld) [Mass/Vol] 11.5 g/dL Critically low 12.0-16.0 [facility] Comment on above: Performed By: #### C BC #### [facility] [address] [place] [address] Dr. Errol Flannery IG # 0.03 10e3/ul Normal 0.00-0.03 [facility] Comment on above: Performed By: #### C BC #### [facility] [address] [place] [address] Dr. Errol Flannery IG % 0.4 % Normal 0.0-0.5 [facility] Comment on above: Performed By: #### C BC #### [facility] [address] [place] [address] Dr. Errol Flannery LYMPH # 1.3 103/ul Normal 1.2-3.8 [facility] Comment on above: Performed By: #### C BC #### [facility] [address] [place] [address] Dr. Errol Flannery Lymphocytes/100 WBC (Bld) 17.5 % Critically low 20.5-60.0 [facility] Comment on above: Performed By: #### C BC #### [facility] [address] [place] [address] Dr. Errol Flannery MANUAL DIFF REQ NO Normal [facility] Comment on above: Performed By: #### C BC #### [facility] [address] [place] [address] Dr. Errol Flannery MCH (RBC) [Entitic mass] 30.5 pg Normal 26.7-34.0 [facility] Comment on above: Performed By: #### C BC #### [facility] [address] [place] [address] Dr. Errol Flannery MCHC (RBC) [Mass/Vol] 32.2 g/dL Normal 29.9-35.2 [facility] Comment on above: Performed By: #### C BC #### [facility] [address] [place] [address] Dr. Errol Flannery MCV (RBC) [Entitic vol] 94.7 fL Normal 81.0-99.0 [facility] Comment on above: Performed By: #### C BC #### [facility] [address] [place] [address] Dr. Errol Flannery MONO # 0.6 103/ul Normal 0.3-0.8 [facility] Comment on above: Performed By: #### C BC #### [facility] [address] [place] [address] Dr. Errol Flannery Monocytes/100 WBC (Bld) 8.5 % Normal 1.7-12.0 [facility] Comment on above: Performed By: #### C BC #### [facility] [address] [place] [address] Dr. Errol Flannery NEUT # 5.2 103/ul Normal 1.4-6.5 [facility] Comment on above: Performed By: #### C BC #### [facility] [address] [place] [address] Dr. Errol Flannery Neutrophils/100 WBC (Bld) 72.9 % Normal 43.0-75.0 [facility] Comment on above: Performed By: #### C BC #### [facility] [address] [place] [address] Dr. Errol Flannery Platelet mean volume (Bld) [Entitic vol] 9.9 fL Normal 9.5-13.5 [facility] Comment on above: Performed By: #### C BC #### [facility] [address] [place] [address] Dr. Errol Flannery PLT 190 103/ul Normal 150-450 [facility] Comment on above: Performed By: #### C BC #### [facility] [address] [place] [address] Dr. Errol Flannery RBC 3.77 106/ul Critically low 4.20-5.40 [facility] Comment on above: Performed By: #### C BC #### [facility] [address] [place] [address] Dr. Errol Flannery WBC 7.2 103/ul Normal 4.0-11.0 [facility] Comment on above: Performed By: #### C BC #### [facility] [address] [address] [address] rErol Flannery PROF 14(COMP METB)on 022 Albumin [Mass/Vol] 2.1 g/dL Critically low 3.4-5.0 [facility] Comment on above: Performed By: #### C MP #### [facility] [address] [place] [address] Dr. Errol Flannery Albumin/Globulin [Mass ratio] 0.7 {ratio} Normal [facility] Comment on above: Performed By: #### C MP #### [facility] [address] [place] [address] Dr. Errol Flannery ALP [Catalytic activity/Vol] 74 U/L Normal 46-116 [facility] Comment on above: Performed By: #### C MP #### [facility] [address] [place] [address] Dr. Errol Flannery ALT [Catalytic activity/Vol] 52 U/L Normal 14-59 [facility] Comment on above: Performed By: #### C MP #### [facility] [address] [place] [address] Dr. Errol Flannery Anion gap [Moles/Vol] 14.0 mmol/L Normal Th [facility] Comment on above: Performed By: #### C MP #### [facility] [address] [place] [address] Dr. Errol Flannery AST [Catalytic activity/Vol] 24 U/L Normal 15-37 [facility] Comment on above: Performed By: #### C MP #### [facility] [address] [place] [address] Dr. Errol Flannery Bilirubin [Mass/Vol] 0.5 mg/dL Normal 0.2-1.0 [facility] Comment on above: Performed By: #### C MP #### [facility] [address] [place] [address] Dr. Errol Flannery Calcium [Mass/Vol] 8.1 mg/dL Critically low 8.5-10.1 [facility] Comment on above: Performed By: #### C MP #### [facility] [address] [address] [address] Errol Flannery Chloride [Moles/Vol] 109 mmol/L Critically high 98-107 [facility] Comment on above: Performed By: #### C MP #### [facility] [address] [address] [address] Errol Flannery CO2 [Moles/Vol] 24.6 mmol/L Normal 21.0-32.0 [facility] Comment on above: Performed By: #### C MP #### [facility] [address] [address] [address] Errol Flannery Creatinine [Mass/Vol] 0.93 mg/dL Normal 0.55-1.02 [facility] Comment on above: Performed By: #### C MP #### [facility] [address] [address] [address] Errol Flannery EGFR-AF [place] >60 Normal >=60 [facility] Comment on above: Performed By: #### C MP #### [facility] [address] [address] [address] Errol Flannery EGFR-NON AF [place] 57 mL/min/1.73m2 Critically low >=60 [facility] Comment on above: Performed By: #### C MP #### [facility] [address] [address] [address] Errol Flannery Globulin (S) [Mass/Vol] 3.0 g/dL Normal [facility] Comment on above: Performed By: #### C MP #### [facility] [address] [address] [address] Errol Flannery Glucose [Mass/Vol] 93 mg/dL Normal 74-106 [facility] Comment on above: Performed By: #### C MP #### [facility] [address] [address] [address] Errol Flannery Potassium [Moles/Vol] 3.6 mmol/L Normal 3.5-5.1 [facility] Comment on above: Performed By: #### C MP #### [facility] [address] [address] [address] Errol Flannery Protein [Mass/Vol] 5.1 g/dL Critically low 6.4-8.2 Th e [facility] Comment on above: Performed By: #### C MP #### [facility] [address] [address] [address] Errol Flannery Sodium [Moles/Vol] 141 mmol/L Normal 136-145 [facility] Comment on above: Performed By: #### C MP #### [facility] [address] [address] [address] Errol Flannery Urea nitrogen [Mass/Vol] 11.0 mg/dL Normal 7.0-18.0 [facility] Comment on above: Performed By: #### C MP #### [facility] [address] [address] [address] Errol Flannery Urea nitrogen/Creatinine [Mass ratio] 11.8 mg/mg Normal [facility] Comment on above: Performed By: #### C MP #### [facility] [address] [address] [address] Errol Flannery XR ABD FLAT UP_PA [...] ALEXANDER DUMONT Date: 2022-04-06 11:49 Normal [facility] CBC AUTO DIFFon 04-05-2022 BASO # 0.0 103/ul Normal 0.0-0.1 [facility] Comment on above: Performed By: #### L ACT #### [facility] [address] [address] [address] Errol Flannery Basophils/100 WBC (Bld) 0.2 % Normal 0.2-2.0 [facility] Comment on above: Performed By: #### L ACT #### [facility] [address] [address] [address] Errol Flannery EO # 0.0 103/ul Normal 0.0-0.7 [facility] Comment on above: Performed By: #### L ACT #### [facility] [address] [address] [address] Errol Flannery Eosinophils/100 WBC (Bld) 0.1 % Critically low 0.9-7.0 [facility] Comment on above: Performed By: #### L ACT #### [facility] [address] [place] [address] Dr. Errol Flannery Erythrocyte distribution width (RBC) [Ratio] 13.6 % Normal 11.0-15.0 [facility] Comment on above: Performed By: #### L ACT #### [facility] [address] [place] [address] Dr. Errol Flannery Hematocrit (Bld) [Volume fraction] 37.1 % Normal 36.0-48.0 [facility] Comment on above: Performed By: #### L ACT #### [facility] [address] [place] [address] Dr. Errol Flannery Hemoglobin (Bld) [Mass/Vol] 11.9 g/dL Critically low 12.0-16.0 [facility] Comment on above: Performed By: #### L ACT #### [facility] [address] [place] [address] Dr. Errol Flannery IG # 0.04 10e3/ul Critically high 0.00-0.03 [facility] Comment on above: Performed By: #### L ACT #### [facility] [address] [place] [address] Dr. Errol Flannery IG % 0.4 % Normal 0.0-0.5 [facility] Comment on above: Performed By: #### L ACT #### [facility] [address] [address] [address] Errol Flannery LYMPH # 1.2 103/ul Normal 1.2-3.8 [facility] Comment on above: Performed By: #### L ACT #### [facility] [address] [place] [address] Dr. Errol Flannery Lymphocytes/100 WBC (Bld) 11.1 % Critically low 20.5-60.0 [facility] Comment on above: Performed By: #### L ACT #### [facility] [address] [place] [address] Dr. Errol Flannery MANUAL DIFF REQ NO Normal [facility] Comment on above: Performed By: #### L ACT #### [facility] [address] [place] [address] Dr. Errol Flannery MCH (RBC) [Entitic mass] 30.4 pg Normal 26.7-34.0 [facility] Comment on above: Performed By: #### L ACT #### [facility] [address] [place] [address] Dr. Errol Flannery MCHC (RBC) [Mass/Vol] 32.1 g/dL Normal 29.9-35.2 [facility] Comment on above: Performed By: #### L ACT #### [facility] [address] [place] [address] Dr. Errol Flannery MCV (RBC) [Entitic vol] 94.9 fL Normal 81.0-99.0 [facility] Comment on above: Performed By: #### L ACT #### [facility] [address] [place] [address] Dr. Errol Flannery MONO # 0.8 103/ul Normal 0.3-0.8 [facility] Comment on above: Performed By: #### L ACT #### [facility] [address] [place] [address] Dr. Errol Flannery Monocytes/100 WBC (Bld) 7.7 % Normal 1.7-12.0 [facility] Comment on above: Performed By: #### L ACT #### [facility] [address] [place] [address] Dr. Errol Flannery NEUT # 8.4 103/ul Critically high 1.4-6.5 [facility] Comment on above: Performed By: #### L ACT #### [facility] [address] [address] [address] Errol Flannery Neutrophils/100 WBC (Bld) 80.5 % Critically high 43.0-75.0 [facility] Comment on above: Performed By: #### L ACT #### [facility] [address] [address] [address] Errol Flannery Platelet mean volume (Bld) [Entitic vol] 9.4 fL Critically low 9.5-13.5 [facility] Comment on above: Performed By: #### L ACT #### [facility] [address] [address] [address] Errol Flannery PLT 197 103/ul Normal 150-450 [facility] Comment on above: Performed By: #### L ACT #### [facility] [address] [address] [address] Errol Flannery RBC 3.91 106/ul Critically low 4.20-5.40 [facility] Comment on above: Performed By: #### L ACT #### [facility] [address] [address] [address] Errol Flannery WBC 10.5 103/ul Normal 4.0-11.0 [facility] Comment on above: Performed By: #### L ACT #### [facility] [address] [address] [address] Errol Flannery PROF 14(COMP METB)on 022 Albumin [Mass/Vol] 2.4 g/dL Critically low 3.4-5.0 [facility] Comment on above: Performed By: #### C MP ####[facility] [address] [address]Dr. Errol Flannery Albumin/Globulin [Mass ratio] 0.8 {ratio} Normal [facility] Comment on above: Performed By: #### C MP ####[facility] [address] [address]Dr. Errol Flannery ALP [Catalytic activity/Vol] 94 U/L Normal 46-116 [facility] Comment on above: Performed By: #### C MP ####[facility] [address] [id number]. Errol Flannery ALT [Catalytic activity/Vol] 87 U/L Critically high 14-59 [facility] Comment on above: Performed By: #### C MP ####[facility] [address] [id number]. Errol Flannery Anion gap [Moles/Vol] 8.3 mmol/L Normal [facility] Comment on above: Performed By: #### C MP ####[facility] [address] [address]Dr. Errol Flannery AST [Catalytic activity/Vol] 47 U/L Critically high 15-37 [facility] Comment on above: Performed By: #### C MP ####[facility] [address] [place], [place] [address]Dr. Errol Prudencio Bilirubin [Mass/Vol] 0.6 mg/dL Normal 0.2-1.0 [facility] Comment on above: Performed By: #### C MP ####[facility] [address] [place], [place] [address]Dr. Errol Prudencio Calcium [Mass/Vol] 8.3 mg/dL Critically low 8.5-10.1 Th [facility] Comment on above: Performed By: #### C MP ####[facility] [address] [place], [place] [address]Dr. Errol Flannery Chloride [Moles/Vol] 106 mmol/L Normal 98-107 [facility] Comment on above: Performed By: #### C MP ####[facility] [address] [place], [place] [id number]. Errol Flannery CO2 [Moles/Vol] 29.3 mmol/L Normal 21.0-32.0 [facility] Comment on above: Performed By: #### C MP ####[facility] [address] [place], [place] [address]Dr. Errol Flannery Creatinine [Mass/Vol] 0.97 mg/dL Normal 0.55-1.02 [facility] Comment on above: Performed By: #### C MP ####[facility] [address] [id number]. Errol Prudencio EGFR-AF [place] >60 Normal >=60 [facility] Comment on above: Performed By: #### C MP ####[facility] [address] [id number]. Errol Prudencio EGFR-NON AF [place] 54 mL/min/1.73m2 Critically low >=60 [facility] Comment on above: Performed By: #### C MP ####[facility] [address] [address]Dr. Pammissy Flannery Globulin (S) [Mass/Vol] 3.1 g/dL Normal [facility] Comment on above: Performed By: #### C MP ####[facility] [address] [address]Dr. Errol Flannery Glucose [Mass/Vol] 100 mg/dL Normal 74-106 [facility] Comment on above: Performed By: #### C MP ####[facility] [address] [address]Dr. Pammissy Flannery Potassium [Moles/Vol] 3.6 mmol/L Normal 3.5-5.1 [facility] Comment on above: Performed By: #### C MP ####[facility] [address] [address]Dr. Errol Flannery Protein [Mass/Vol] 5.5 g/dL Critically low 6.4-8.2 [facility] Comment on above: Performed By: #### C MP ####[facility] [address] [address]Dr. Errol Flannery Sodium [Moles/Vol] 140 mmol/L Normal 136-145 [facility] Comment on above: Performed By: #### C MP ####[facility] [address] [address]Dr. Errol Flannery Urea nitrogen [Mass/Vol] 15.0 mg/dL Normal 7.0-18.0 [facility] Comment on above: Performed By: #### C MP ####[facility] [address] [id number]. Errol Flannery Urea nitrogen/Creatinine [Mass ratio] 15.5 mg/mg Normal [facility] Comment on above: Performed By: #### C MP ####[facility] [address] [place], [place] [address]LkDr. Errol Flannery XR ABD FLAT_UPon 04-05-2022 XR ABD FLAT_UP EXAMINATION: XR ABD FLAT_UP HISTORY: Lower abdominal pain COMPARISON: CT ABD/PELV 04/04/2022 FINDINGS: BOWEL GAS PATTERN: Non-obstructed. No abnormal dilation. FREE AIR: None. CALCIFICATIONS: None significant. BONES: No fracture or visible bone lesion. OTHER: Negative. IMPRESSION: 1. No bowl obstruction or acute findings to account for patient's symptoms. Electronically authenticated by: ALEXADNER DUMONT Date: 2022-04-05 07:15 Normal [facility] CBC AUTO DIFFon 04-04-2022 BASO # 0.0 103/ul Normal 0.0-0.1 [facility] Comment on above: Performed By: #### C BC #### [facility] [address] [address] [address] Errol Flannery Basophils/100 WBC (Bld) 0.2 % Normal 0.2-2.0 [facility] Comment on above: Performed By: #### C BC #### [facility] [address] [address] [address] Errol Flannery EO # 0.0 103/ul Normal 0.0-0.7 [facility] Comment on above: Performed By: #### C BC #### [facility] [address] [address] [address] Errol Flannery Eosinophils/100 WBC (Bld) 0.0 % Critically low 0.9-7.0 [facility] Comment on above: Performed By: #### C BC #### [facility] [address] [address] [address] Errol Flannery Erythrocyte distribution width (RBC) [Ratio] 13.6 % Normal 11.0-15.0 [facility] Comment on above: Performed By: #### C BC #### [facility] [address] [place] [address] Dr. Errol Flannery Hematocrit (Bld) [Volume fraction] 44.1 % Normal 36.0-48.0 [facility] Comment on above: Performed By: #### C BC #### [facility] [address] [place] [address] Dr. Errol Flannery Hemoglobin (Bld) [Mass/Vol] 14.5 g/dL Normal 12.0-16.0 [facility] Comment on above: Performed By: #### C BC #### [facility] [address] [place] [address] Dr. Errol Flannery IG # 0.07 10e3/ul Critically high 0.00-0.03 [facility] Comment on above: Performed By: #### C BC #### [facility] [address] [place] [address] Dr. Errol Flannery IG % 0.4 % Normal 0.0-0.5 [facility] Comment on above: Performed By: #### C BC #### [facility] [address] [place] [address] Dr. Errol Flannery LYMPH # 1.4 103/ul Normal 1.2-3.8 [facility] Comment on above: Performed By: #### C BC #### [facility] [address] [place] [address] Dr. Errol Flannery Lymphocytes/100 WBC (Bld) 7.4 % Critically low 20.5-60.0 [facility] Comment on above: Performed By: #### C BC #### [facility] [address] [place] [address] Dr. Errol Flannery MANUAL DIFF REQ NO Normal [facility] Comment on above: Performed By: #### C BC #### [facility] [address] [place] [address] Dr. Errol Flannery MCH (RBC) [Entitic mass] 30.7 pg Normal 26.7-34.0 [facility] Comment on above: Performed By: #### C BC #### [facility] [address] [address] [address] Errol Flannery MCHC (RBC) [Mass/Vol] 32.9 g/dL Normal 29.9-35.2 [facility] Comment on above: Performed By: #### C BC #### [facility] [address] [address] [address] Errol Flannery MCV (RBC) [Entitic vol] 93.2 fL Normal 81.0-99.0 [facility] Comment on above: Performed By: #### C BC #### [facility] [address] [address] [address] Errol Flannery MONO # 1.5 103/ul Critically high 0.3-0.8 [facility] Comment on above: Performed By: #### C BC #### [facility] [address] [address] [address] Errol Flannery Monocytes/100 WBC (Bld) 7.8 % Normal 1.7-12.0 [facility] Comment on above: Performed By: #### C BC #### [facility] [address] [address] [address] Errol Flannery NEUT # 15.6 103/ul Critically high 1.4-6.5 [facility] Comment on above: Performed By: #### C BC #### [facility] [address] [address] [address] Errol Flannery Neutrophils/100 WBC (Bld) 84.2 % Critically high 43.0-75.0 [facility] Comment on above: Performed By: #### C BC #### [facility] [address] [address] [address] Errol Flannery Platelet mean volume (Bld) [Entitic vol] 9.6 fL Normal 9.5-13.5 [facility] Comment on above: Performed By: #### C BC #### [facility] [address] [address] [address] Errol Flannery PLT 260 103/ul Normal 150-450 [facility] Comment on above: Performed By: #### C BC #### [facility] [address] [place], [place] [address] Dr. Errol Flannery RBC 4.73 106/ul Normal 4.20-5.40 [facility] Comment on above: Performed By: #### C BC #### [facility] [address] [place], [place] [address] Dr. Errol Flannery WBC 18.5 103/ul Critically high 4.0-11.0 [facility] Comment on above: Performed By: #### C BC #### [facility] [address] [place], [place] [address] ABD/PELV W CONon [...] left hip arthroplasty. Electronically authenticated by: LUZ ORLANDOH Date: 2022-04-04 12:09 Normal [facility]on 03-19 SARS-CoV-2 (COVID-19) RNA NELLIE+probe Ql (Unsp spec) Not detected Normal NOT DETECTED [facility] Comment on above: Result Comment: [...] for this test is supported by the [employer] of Health and Human Service's declaration [...] used). Performed By: #### L ACT #### [facility] [address] [place] [address] Dr. Errol Flannery ER URINE PROFILEon 2 Bilirubin Ql (U) Negative Normal NEGATIVE [facility] Comment on above: Performed By: #### U MICRO, ERUR #### [facility] [address] [place] [address] Dr. Errol Flannery Clarity (U) SL CLOUDY Abnormal CLEAR [facility] Comment on above: Performed By: #### U MICRO, ERUR #### [facility] [address] [place] [address] Dr. Errol Flannery Color (U) YELLOW Normal YELLOW [facility] Comment on above: Performed By: #### U MICRO, ERUR #### [facility] [address] [place] [address] Dr. Errol RICHARDD A micrscopic examination will be performed if indicated. Normal [facility] Comment on above: Performed By: #### U MICRO, ERUR #### [facility] [address] [place] [address] Dr. Errol Flannery Glucose Ql (U) Negative Normal NEGATIVE [facility] Comment on above: Performed By: #### U MICRO, ERUR #### [facility] [address] [place] [address] Dr. Errol Flannery Hemoglobin Ql (U) TRACE-INTACT Abnormal NEGATIVE [facility] Comment on above: Performed By: #### U MICRO, ERUR #### [facility] [address] [place] [address] Dr. Errol Flannery Ketones Ql (U) Negative Normal NEGATIVE [facility] Comment on above: Performed By: #### U MICRO, ERUR #### [facility] [address] [address] [address] Errol Flannery LEUKOCYTES TRACE Abnormal NEGATIVE [facility] Comment on above: Performed By: #### U MICRO, ERUR #### [facility] [address] [address] [address] Errol Flannery Nitrite Ql (U) Negative Normal NEGATIVE [facility] Comment on above: Performed By: #### U MICRO, ERUR #### [facility] [address] [address] [address] Errol Flannery pH (U) 8.0 [pH] Normal 5-9 [facility] Comment on above: Performed By: #### U MICRO, ERUR #### [facility] [address] [place] [address] Dr. Errol Flannery SPEC GRAVITY 1.010 Normal 1.005-<=1.025 [facility] Comment on above: Performed By: #### U MICRO, ERUR #### [facility] [address] [place] [address] Dr. Errol Flannery UA PROTEIN Negative Normal NEGATIVE/ TRACE [facility] Comment on above: Performed By: #### U MICRO, ERUR #### [facility] [address] [place] [address] Dr. Errol Flannery UR MICRO IND INDICATED Normal [facility] Comment on above: Performed By: #### U MICRO, ERUR #### [facility] [address] [place] [address] Dr. Errol Flannery Urobilinogen Qn (U) 0.2 {Jordyn'U}/dL Normal 0.2 - 1. 0 [facility] Comment on above: Performed By: #### U MICRO, ERUR #### [facility] [address] [place] [address] Dr. Errol Flannery LACTATE/LACTIC ACIDon 2021 Lactate [Moles/Vol] 1.3 mmol/L Normal 0.4-1.9 [facility] Comment on above: Performed By: #### L ACT ####[facility] [address] [address]Dr. Errol Flannery PROF 14(COMP METB)on 022 Albumin [Mass/Vol] 3.3 g/dL Critically low 3.4-5.0 [facility] Comment on above: Performed By: #### C BC #### [facility] [address] [address] [address] Errol Flannery Albumin/Globulin [Mass ratio] 0.9 {ratio} Normal [facility] Comment on above: Performed By: #### C BC #### [facility] [address] [address] [address] Errol Flannery ALP [Catalytic activity/Vol] 109 U/L Normal 46-116 [facility] Comment on above: Performed By: #### C BC #### [facility] [address] [place] [address] Dr. Errol Flannery ALT [Catalytic activity/Vol] 40 U/L Normal 14-59 [facility] Comment on above: Performed By: #### C BC #### [facility] [address] [address] [address] Errol Flannery Anion gap [Moles/Vol] 10.4 mmol/L Normal [facility] Comment on above: Performed By: #### C BC #### [facility] [address] [place] [address] Dr. Errol Flannery AST [Catalytic activity/Vol] 34 U/L Normal 15-37 [facility] Comment on above: Performed By: #### C BC #### [facility] [address] [address] [address] Errol Flannery Bilirubin [Mass/Vol] 0.8 mg/dL Normal 0.2-1.0 [facility] Comment on above: Performed By: #### C BC #### [facility] [address] [place] [address] Dr. Errol Flannery Calcium [Mass/Vol] 8.8 mg/dL Normal 8.5-10.1 [facility] Comment on above: Performed By: #### C BC #### [facility] [address] [place] [address] Dr. Errol Flannery Chloride [Moles/Vol] 101 mmol/L Normal 98-107 [facility] Comment on above: Performed By: #### C BC #### [facility] [address] [address] [address] Errol Flannery CO2 [Moles/Vol] 30.1 mmol/L Normal 21.0-32.0 [facility] Comment on above: Performed By: #### C BC #### [facility] [address] [address] [address] Errol Flannery Creatinine [Mass/Vol] 1.36 mg/dL Critically high 0.55-1.02 [facility] Comment on above: Performed By: #### C BC #### [facility] [address] [place] [address] Dr. Errol Flannery EGFR-AF [place] 45 mL/min/1.73m2 Critically low >=60 [facility] Comment on above: Performed By: #### C BC #### [facility] [address] [place] [address] Dr. Errol Flannery EGFR-NON AF [place] 37 mL/min/1.73m2 Critically low >=60 [facility] Comment on above: Performed By: #### C BC #### [facility] [address] [place] [address] Dr. Errol Flannery Globulin (S) [Mass/Vol] 3.6 g/dL Normal [facility] Comment on above: Performed By: #### C BC #### [facility] [address] [place] [address] Dr. Errol Flannery Glucose [Mass/Vol] 107 mg/dL Critically high 74-[address] [facility] Comment on above: Performed By: #### C BC #### [facility] [address] [place] [address] Dr. Errol Flannery Potassium [Moles/Vol] 3.5 mmol/L Normal 3.5-5.1 [facility] Comment on above: Performed By: #### C BC #### [facility] [address] [place] [address] Dr. Errol Flannery Protein [Mass/Vol] 6.9 g/dL Normal 6.4-8.2 [facility] Comment on above: Performed By: #### C BC #### [facility] [address] [address] [address] Errol Flannery Sodium [Moles/Vol] 138 mmol/L Normal 136-145 [facility] Comment on above: Performed By: #### C BC #### [facility] [address] [address] [address] Errol Flannery Urea nitrogen [Mass/Vol] 18.0 mg/dL Normal 7.0-18.0 [facility] Comment on above: Performed By: #### C BC #### [facility] [address] [address] [address] Errol Flannery Urea nitrogen/Creatinine [Mass ratio] 13.2 mg/mg Normal [facility] Comment on above: Performed By: #### C BC #### [facility] [address] [address] [address] Errol Flannery URINE MICROSCOPIC ONLYon BACTERIA NONE SEEN Normal NONE SEEN The [facility] Comment on above: Performed By: #### U MICRO, ERUR ####[facility] [address] [address]DrElana Flannery Bacteria identified Cx Nom (U) NOT INDICATED Normal [facility] Comment on above: Performed By: #### U MICRO, ERUR ####[facility] [address] [address]DrElana Flannery CAST NONE SEEN Normal NONE SEEN [facility] Comment on above: Performed By: #### U MICRO, ERUR ####[facility] [address] [address]DrElana Flannery Crystals LM Nom (Urine sed) NONE SEEN Normal NONE SEEN [facility] Comment on above: Performed By: #### U MICRO, ERUR ####[facility] [address] [address]DrElana Flannery Epithelial cells LM Ql (Urine sed) MANY Abnormal NONE SEEN /RARE [facility] Comment on above: Performed By: #### U MICRO, ERUR ####[facility] [address] [id number]. Errol Flannery MUCOUS NONE SEEN Normal NONE SEEN [facility] Comment on above: Performed By: #### U MICRO, ERUR ####[facility] [address] [id number]. Errol Flannery RBC 0-2 Normal 0-2 [facility] Comment on above: Performed By: #### U MICRO, ERUR ####[facility] [address] [id number]. Errol Flannery WBC 0-2 Abnormal NONE SEEN The [facility] Comment on above: Performed By: #### U MICRO, ERUR ####[facility] [address] [address]Dr. Errol Flannery METHYLMALONIC ACID (MMA)on 0 01-07-2022 Methylmalonic Acid, Serum 252 nmol/L Normal 0-378 [facility] Comment on above: Performed By: #### M MA2 ####[facility] [address] [address]Dr. Errol Flannery TSHon 12-30-2021 TSH 2.969 uIU/mL Normal 0.470-4.680 [facility] Comment on above: Performed By: #### T SH ####[facility] [address] [address]Dr. Errol Flannery TSH RANGE SEE BELOW Normal [facility] Comment on above: Result Comment: <0.3 4 UIU/ml HYPERTHYROID 0.34-5.60 UIU/ml EUTHYROID >5.60 UIU/ml HYPOTHYROID Performed By: #### T SH ####[facility] [address] [address]Dr. Errol Flannery VIT B12 AND FOLATEon 022 Cobalamin (Vitamin B12) [Mass/Vol] 466.0 pg/mL Normal 239.0-931.0 [facility] Comment on above: Performed By: #### B 12FOL #### [facility] [address] [address] [address] Errol Flannery FOLATE >20.00 Normal >=2.76 [facility] Comment on above: Performed By: #### B 12FOL #### [facility] [address] [address] [address] Errol Flannery [facility] CARDIAC STRESS/REST INJE CTIONon 09-22-2021 [facility] CARDIAC STRESS/REST INJECTION Patient Name: SHAYNA GARCIA STUDY: MYOCARDIAL PERFUSION STRESS TEST WITH LEXISCAN Performing facility: [facility], [address] [place] [address], [address], [place] [address] [facility] Provider: Keith Claire MD, FACC PCP: Dr. Martha AVINA Supervising provider: Renaldo Jennings MD, [facility] INDICATION: Chest Pain; HTN Chest Pain; Chest Pain; HISTORY: Gender: F; Age: 86 y/o ; Height: 0 cm; Weight: 0 kg. HTN; Chest Pain; Denies smoking. COMPARISON: No comparison. ACCESSION NUMBER(S): [id number]; [id number]; [id number] ORDERING CLINICIAN: VASQUEZ CLAIRE TECHNIQUE: ONE DAY [...] signed by: RENALDO JENNINGS MD Normal [facility] No Panel Informationon 09-22 Normal [facility] y 250 DO Work Phone: Falls Risk Screeningon 08-17 Fall risk assessment b) One or more fall s in the last year [facility] y 250 DO Work Phone: Tobacco use status CPHS b) No [facility] y 250 DO Work Phone: Office Visit [...] Instructions By signing my name below, I, Becki Reynolds LPNibkirit, attest that this documentation has been prepared [...] 17Aug2021 08:58AM Heart Rate73, L Brachial Artery Sbdwgyhn169, RUE, Sitting Blvibwrav04, RUE, Sitting Height5 ft Xnidcv719 lb BMI Woxyhplvhd94.25 kg/m2 BSA Calculated1.7 Tobacco Useb) No Fall [...] 01-17-2019 XR hip LT min 2V(w/wo pelvis)* [facility] [place] [address] [place] [address] XRay Report Signed Patient: Shayna Garcia MR#: [id number] : 1935 Acct:[id number] Age/Sex: 83 / F ADM Date: 01/17/19 [place] [facility] [place]: Type: [facility] Attending Dr: Daniel Domínguez MD Ordering Provider: [...] Zechariah Arvizu M.D.01/17/2019 3:28 PM Dictation Location: [facility] Transcribed By: [facility] 01/17/19 1528 Dictated By: Zechariah Arvizu II, MD 01/17/19 1527 Signed By: 01/17/19 1528 Normal [facility] Vital Signs Date Time Vital Sign Value Performing Clinician Facility 02-07-2024 11:02-0400 Body height 165.1 cm [facility] 02-07-2024 11:02-0400 Body mass index (BMI) [Ratio] 22.7 kg/m2 [facility] 02-07-2024 11:02-0400 Body weight 61.91 kg [facility] 02-07-2024 11:02-0400 Diastolic blood pressure 76 mm[Hg] [facility] 02-07-2024 11:02-0400 Heart rate 73 /min [facility] 02-07-2024 11:02-0400 Respiratory rate 12 /min [facility] 02-07-2024 11:02-0400 Systolic blood pressure 132 mm[Hg] [facility] 08-23-2023 11:45-0500 Body height 165.1 cm Moustapha Ball Other [facility] Other 08-23-2023 11:45-0500 Body mass index (BMI) [Ratio] 24.63 kg/m2 Moustapha Ball Other [facility] Other 08-23-2023 11:45-0500 Body weight 67.13 kg Moustapha Ball Other [facility] Other 08-23-2023 11:45-0500 Diastolic blood pressure 81 mm[Hg] Moustapha Ball Other [facility] Other 08-23-2023 11:45-0500 Respiratory rate 12 /min Moustapha Ball Other [facility] Other 08-23-2023 11:45-0500 Systolic blood pressure 134 mm[Hg] Moustapha Ball Other [facility] Other 08-17-2023 09:00-0500 Body height 165.1 cm Moustapha Ball Other [facility] Other 08-17-2023 09:00-0500 Body mass index (BMI) [Ratio] 25.16 kg/m2 Moustapha Ball Other [facility] Other 08-17-2023 09:00-0500 Body weight 68.58 kg Moustapha Ball Other [facility] Other 08-17-2023 09:00-0500 Diastolic blood pressure 93 mm[Hg] Moustapha Ball Other [facility] Other 08-17-2023 09:00-0500 Respiratory rate 12 /min Moustapha Ball Other [facility] Other 08-17-2023 09:00-0500 Systolic blood pressure 158 mm[Hg] Moustapha Ball Other [facility] Other 12-21-2022 11:30-0400 Body height 165.1 cm Moustapha Ball Other [facility] Other 12-21-2022 11:30-0400 Body mass index (BMI) [Ratio] 25.19 kg/m2 Moustapha Ball Other [facility] Other 12-21-2022 11:30-0400 Body weight 68.68 kg Moustapha Ball Other [facility] Other 04-04-2023 11:30-0400 Diastolic blood pressure Moustapha Ball Other [facility] [place] [facility] Other 12-21-2022 11:30-0400 Respiratory rate 16 /min Moustapha Ball Other [facility] Other 12-21-2022 11:30-0400 Systolic blood pressure 112 mm[Hg] Moustapha Ball Other [facility] [place] [facility] Other 11-24-2022 09:27-0500 Blood Pressure Location KEIKO ROCK [facility] 11-24-2022 09:27-0500 Diastolic blood pressure 86 mm[Hg] KEIKO LEX [facility] 11-24-2022 09:27-0500 Heart rate 70 /min KEIKO LEX [facility] 11-24-2022 09:27-0500 Systolic blood pressure 127 mm[Hg] KEIKO LEX [facility] 11-23-2022 10:00-0500 Body height 165.1 cm Margarito Harvey Other [facility] Other 11-23-2022 10:00-0500 Body mass index (BMI) [Ratio] 31.61 kg/m2 Margarito Harvey Other [facility] Other 11-23-2022 10:00-0500 Body weight 86.18 kg Margarito Harvey Other [facility] Other 11-23-2022 10:00-0500 Diastolic blood pressure 96 mm[Hg] Margarito Harvey Other [facility] Other 11-23-2022 10:00-0500 Systolic blood pressure 152 mm[Hg] Margarito Harvey Other [facility] Other 09-22-2022 08:22-0500 Blood Pressure Location Cassidy Lue [facility] 09-22-2022 08:22-0500 Diastolic blood pressure 83 mm[Hg] Cassidy Lue [facility] 09-22-2022 08:22-0500 Heart rate 70 /min Cassidy Lue [facility] 09-22-2022 08:22-0500 Respiratory rate 16 /min Cassidy Lue [facility] 09-22-2022 08:22-0500 Systolic blood pressure 130 mm[Hg] Cassidy Lue [facility] 09-22-2021 12:00-0500 74 1 Moustapha Beth Ball Work Phone: [facility] [place] Work Phone: Comment on above: [id number] 08-17-2021 08:58-0500 Body height 152.4 cm Moustapha Beth Ball Work Phone: [facility] 250 DO Work Phone: 08-17-2021 08:58-0500 Body mass index (BMI) [Ratio] 31.25 kg/m2 Moustapha Beth Ball Work Phone: [facility] 250 DO Work Phone: 08-17-2021 08:58-0500 Body surface area Derived from formula 1.7 m2 Moustapha Beth Ball Work Phone: [facility] 250 DO Work Phone: 08-17-2021 08:58-0500 Body weight 72.58 kg Moustapha Beth Ball Work Phone: [facility] 250 DO Work Phone: 08-17-2021 08:58-0500 Diastolic blood pressure 84 mm[Hg] Moustapha E Ball Work Phone: [facility] 250 DO Work Phone: 08-17-2021 08:58-0500 Heart rate 73 /min Moustapha E Ball Work Phone: [facility] 250 DO Work Phone: 08-17-2021 08:58-0500 Systolic blood pressure 136 mm[Hg] Moustapha E Daniela Work Phone: [facility] 250 DO Work Phone: Encounters Encounter Date Encounter Type Care Provider Facility Start: 11-27-2024 ambulatory KEIKO Rolon ty:TONYA Martini Start: 02-28-2024 End: 02-28-2024 ambulatory JORGE LUNA Not Available Start: 02-26-2024 End: 02-26-2024 ambulatory ALEXI COLEMAN Not Available Start: 02-07-2024 End: 02-07-2024 ambulatory [facility] Work Phone: Start: 02-07-2024 End: 02-07-2024 Patient encounter procedure [facility] Phys[facility] Work Phone: Start: 02-03-2024 Non-patient / Non-visit [facility] Work Phone: Start: 01-25-2024 Non-patient / Non-visit [facility] Work Phone: Start: 01-19-2024 Non-patient / Non-visit [facility] Physician [facility] Work Phone: Start: 01-16-2024 Non-patient / Non-visit [facility] Physician [facility] Work Phone: Start: 01-14-2024 Non-patient / Non-visit [facility] Physician [facility] Work Phone: Start: 01-13-2024 Non-patient / Non-visit [facility] Physician [facility] Work Phone: Start: 01-12-2024 Non-patient / Non-visit [facility] Physician [facility] Work Phone: Start: 01-11-2024 Non-patient / Non-visit [facility] Physician [facility] Work Phone: Start: 01-10-2024 Non-patient / Non-visit [facility] Phys[facility] Work Phone: Start: 11-22-2023 End: 11-23-2023 ambulatory KEIKO ROCK Facility:[facility] Start: 10-17-2023 End: 10-17-2023 ambulatory Moustapha Ball Other [facility] Other Start: 10-17-2023 Telephone encounter Moustapha Daniela [facility] Start: 08-25-2023 End: 08-25-2023 ambulatory Moustapha Ball Other [facility] Other Start: 08-25-2023 Telephone encounter Moustapha Ball FP [facility] Start: 08-23-2023 End: 08-23-2023 ambulatory Moustapha Ball Other [facility] Other Start: 08-23-2023 Office outpatient visit 15 minutes Moustapha Ball [facility] Start: 08-22-2023 End: 08-22-2023 ambulatory Moustapha Ball Other [facility] Other Start: 08-22-2023 Telephone encounter Moustapha Ball FP [facility] Start: 08-17-2023 End: 08-17-2023 ambulatory Moustapha Ball Other [facility] Other Start: 08-17-2023 Patient encounter procedure Moustapha Avina [facility] Start: 07-10-2023 End: 07-10-2023 ambulatory Moustapha Avina Other [facility] Other Start: 07-10-2023 Telephone encounter Moustapha ANGUIANO [facility] Start: 05-09-2023 End: 05-09-2023 ambulatory Moustapha Avina Other [facility] Other Start: 05-09-2023 Telephone encounter Moustapha ANGUIANO [facility] Start: 05-04-2023 End: 05-05-2023 ambulatory Cassidy Parks Facility:[facility] Start: 01-25-2023 End: 01-25-2023 ambulatory Moustapha Avina Other [facility] Other Start: 01-25-2023 Telephone encounter Moustapha ANGUIANO [facility] Start: 12-21-2022 End: 12-21-2022 ambulatory Moustapha Avina Other [facility] Other Start: 12-21-2022 Office outpatient visit 25 minutes Moustapha Avina [facility] Start: 11-24-2022 End: 11-25-2022 ambulatory KEIKO ROCK Facility:[facility] Start: 11-24-2022 End: 11-24-2022 Patient encounter procedure KEIKO ROCK [facility] Start: 11-23-2022 End: 11-23-2022 ambulatory Margarito Harvey Other [facility] Other Start: 11-23-2022 [facility] visit new patient Margarito Harvey [facility] Start: 11-11-2022 End: 11-11-2022 ambulatory Moustapha Avina Other [facility] Other Start: 11-11-2022 Telephone encounter Moustapha Avina [facility] Start: 10-15-2022 End: 10-16-2022 ambulatory CASSIDY PARKS . Facility:[facility] Start: 09-22-2022 End: 09-22-2022 Lab Drop off Cassidy Parks [facility] Start: 09-22-2022 End: 09-22-2022 Patient encounter procedure Cassidy Parks [facility] Start: 06-08-2022 End: 06-09-[address] MOUSTAPHA AVINA Facility:[facility] Start: 05-21-2022 End: 05-22-[address] MOUSTAPHA AVINA Facility:[facility] Start: 04-28-2022 End: 04-29-[address] MOUSTAPHA AVINA Facility:[facility] Start: 04-06-2022 Adult health examination Moustapha Avina Other [facility] Other Start: 04-04-2022 End: 04-12-2022 Evaluation and management of inpatient DR NAEL SULLIVAN Facility:[facility] Start: 12-30-2021 End: 12-31-[address] ALEXANDER URIBE Facility:[facility] Start: 11-09-2021 End: 11-10-[address] MOUSTAPHA AVINA Facility:[facility] Start: 09-24-2021 Chart Update Moustapha quiroz Work Phone: [facility] 250 DO Work Phone: Start: 09-22-2021 Patient encounter procedure Moustapha Avina Work Phone: [facility] [place] Work Phone: Start: 08-17-2021 Office outpatient visit 25 minutes Moustapha Avina Work Phone: [facility] 250 DO Work Phone: Start: 01-17-2019 End: 01-17-2019 Patient encounter procedure Moustapha Avina Facility:[facility] Procedures Date Procedure Procedure Detail Performing Clinician Start: 01-12-2024 Blood Culture 1 Start: 01-12-2024 Blood Culture 2 Start: 03-16-2017 End: 01-01-2020 Screening for osteoporosis Moustapha Avina Other Start: 02-25-2016 End: 01-01-2020 Screening for malignant neoplasm of colon Moustapha Avina Other Appendectomy Moustapha Beth Ball Work Phone: Appendectomy Cassidy Lue bilat hip OA Cassidy Lue Cholecystectomy Moustapha E B all Work Phone: Cholecystectomy Cassidy Lue degenerative disc di sease; DJD Cassidy Lue Depression screening Benjami n Daniela Other Excision of melanoma Benjami n E Ball Work Phone: Excision of melanoma Cassidy L ue H/O: artificial joint Benjam in Daniela Other End: 06-24-2021 Laboratory test result abnormal [...] Vasquez Claire, Status: Pen, Time: 12:50 PM [facility] 250 DO Work Phone: Start: 09-22-2021 STRESS NUC, [facility] , Status: Pen, Time: 12:00 PM STRESS NUC, Provider: SHARYN DAVIDI NUCLEAR 01,[id number], Status: Pen, Time: 12:00 PM [facility] 250 DO Work Phone: Immunizations Immunization Date Immunization Notes Care Provider Ezekiel yang 08-17-2023 influenza virus vaccine, unspecified formulation [facility] 08-17-2023 influenza, high dose seasonal, preservative-free Moustapha Avina Other [facility] Other 07-17-2021 influenza virus vaccine, unspecified formulation KEIKO ROCK [facility] 07-17-2021 influenza, high dose seasonal, preservative-free Moustapha Avina Work Phone: [facility] 250 DO Work Phone: Comment on above: Series: 06-24-2021 influenza virus vaccine, split virus (incl. purified surface antigen) Moustapha Avina Other [facility] Other 06-24-2021 influenza virus vaccine, unspecified formulation [facility] 03-13-2021 tetanus and diphther ia toxoids, adsorbed, preservative free, for adult use (5 Lf of tetanus toxoid and 2 Lf of diphtheria toxoid) Moustapha Avina Other [facility] 02-17-2021 pneumococcal polysaccharide vaccine, 23 valent Moustapha Avina Other [facility] 06-04-2020 influenza virus vaccine, split virus (incl. purified surface antigen) Moustapha Avina Other [facility] Other 06-04-2020 influenza virus vaccine, unspecified formulation KEIKO LEX [facility] 06-04-2020 influenza, high dose seasonal, preservative-free Moustapha Beth Ball Work Phone: [facility] 250 DO Work Phone: 02-15-2020 pneumococcal conjuga te vaccine, 13 valent Moustapha Avina Work Phone: [facility] 03-16-2017 diphtheria, tetanus toxoids and acellular pertussis vaccine, unspecified formulation Moustapha Avina Other [facility] 01-17-2015 zoster vaccine, live Kaveh Avina Other [facility] Payers Date Payer Category Payer Self-pay 2011 Medicare [id number] 1959 Medicare [id number] 1959 Unknown [id number] 1934 Unknown [id number] 2.16.84 [id number] 1934 Unknown [id number] 2.16.84 0.1.229108.3.579.2.593 1934 Unknown [id number] 2.16.84 0.1.777723.3.579.2.593 1934 Unknown [id number] 2.16.84 0.1.531015.3.579.2.593 1934 Unknown [id number] 2.16.84 0.1.843580.3.579.2.593 1934 Unknown [id number] 2.16.84 0.1.967588.3.579.2.593 1934 Unknown [id number] 2.16.84 0.1.326756.3.579.2.593 1934 Unknown [id number] 2.16.8 40.1.990516.3.579.2.727 1934 Unknown [id number] 2.16.8 40.1.469204.3.579.2.727 1934 Unknown [id number] 2.16.8 40.1.991790.3.579.2.727 1934 Unknown [id number] 2.16.8 40.1.988399.3.579.2.727 1934 Unknown [id number] 2.16.84 0.1.989690.3.579.2.1259 1934 Unknown [id number] 2.16.84 0.1.641566.3.579.2.1259 Unknown [id number] 2.16.84 0.1.636560.3.579.2.531 Unknown Unknown Regular Insurance [id number] Social History Date Type Detail Facility No illicit drug use No illicit drug use [place] [id number] DO Work Phone: Start: 01-17-2017 End: 09-22-2022 Tobacco smoking status Never smoked tobacco (finding) [facility] Sex Assigned At Female [facility] Start: 1935 Sex [address] Female [facility] Functional Status Date Assessment Result Facility 11-24-2022 Functional Status N/A [facility] 09-22-2022 Functional Status N/A [facility] Clinical Notes 11-09-2021 to 08-23-2023 Note [...] adequate fluid balance and to avoid dehydration. [facility] Other 12-05-2023 History general Narrative - Reported* [...] History DIVERTICULITIS 2021 Hospitalization History see above [facility] Other 11-29-2023 Evaluation note* Encounter Date Diagnosis [...] Ensure daily Check CBC, BS, Hepatic enzymes [facility] Other 11-29-2023 History general Narrative - Reported* [...] History DIVERTICULITIS 2021 Hospitalization History see above [facility] Other 10-25-2023 History general Narrative - Reported* [...] History DIVERTICULITIS 2021 Hospitalization History see above [facility] Other 08-21-2023 Evaluation note* Encounter Date Diagnosis Assessment Notes Treatment Notes Treatment Clinical Notes Apr, Acute cystitis without hematuria (ICD-10 - N30.00) [facility] Other 04-04-2023 Evaluation note* Encounter Date Diagnosis [...] to evaluate for FB in right EAC [facility] Other 03-08-2023 Hospital Discharge instructions Patient Education [...] symptoms are. Treatment may include: Using an mqus-bnm-cddnzfo vaginal lubricant before sex. Using a long-acting [...] Follow these instructions at home: Medicines Take lgnr-uqj-smgsxxw and prescription medicines only as told by your health care provider. Do not use herbal or alternative medicines unless your health care provider says that you can. Use zeym-pfs-stqkcgl creams, lubricants, or moisturizers for dryness only [...] 01/20/2016 Document Revised: 08/18/2018 Document Reviewed: 06/01/2018 [employer] Patient Education 2020 [employer] Follow Up Care 09/22/2022 09:57:43 With:KEIKO ROCK PA-C, URL Address: When:1 year [facility] 03-07-2023 Evaluation note* Encounter Date Diagnosis Assessment Notes Treatment Notes Treatment Clinical Notes Nov, Constipation (ICD-10 - K59.00) PATIENT TO START ON A MIRALAX DAILY, TITRATION DOSAGE. RTO IN 3 MONTHS [facility] Other 02-23-2023 Evaluation note* Encounter Date Diagnosis Assessment Notes Treatment Notes Treatment Clinical Notes Oct, Insomnia due to other mental disorder (ICD-10 - F51.05) Oct, Mental disorder, not otherwise specified (ICD-10 - F99) [facility] Other 01-04-2023 Hospital Discharge instructions Patient Education 09/22/2022 09:23:59 Urinary Tract Infection, Adult, Brwf-zk-Ezbp Urinary Tract Infection, Adult A urinary tract [...] Follow these instructions at home: Medicines Take hunk-faz-aguourd and prescription medicines only as told by [...] 02/21/2009 Document Revised: 08/23/2019 Document Reviewed: 03/15/2019 [employer] Patient Education 2020 [employer]. Follow Up Care 08/24/2022 11:34:30 With:Charly TODD, GEETHA Hillman, URO Address: [address] [place] [address] [phone] When:Within 2 Month(s) [facility] 09-02-2022 NotePROCEDURE: XR GI UPPER [...] Electronically authenticated by: GENO PIZARRO Date: 2022-05-21 10:11[facility]09-02-2022 NotePROCEDURE: XR GI UPPER AIR KUB DUAL [...] Electronically authenticated by: GENO PIZARRO Date: 2022-05-21 10:11[facility]02-21-2022 NotePROCEDURE: XR HIP LT 2 3V W [...] Electronically authenticated by: ALEXANDER DUMONT Date: 2021-11-09 17:46[facility] Future App[facility]ments Appointment Date:11/24/2022 08:45:00 AM Scheduled Provider:Cassidy Parks MD Location:[facility] Appointment Type:URO Office Visit [facility] evaluation + Plan note Future Appointments Appointment Date:11/24/2022 08:45:00 AM Scheduled Provider:Cassidy Parks MD Location:[facility] Appointment Type:URO Office Visit Diagnostic Tests Pending * [facility]ments Appointment Date:11/22/2023 08:30:00 AM Scheduled Provider:KEIKO ROCK PA-C Location:[facility] Appointment Type:URO Office Visit [facility] evalyybmje noteNo [facility] Other Evaluation note* Diagnosis Onset Date Resolution Status Alzheimer's dementia acute Chronic kidney disease acute Hypertension acute Pancreatic cyst acute Renal mass, right acute [facility] Work Phone: History general Narrative - Reported* Type Description [...] History DIVERTICULITIS 2021 Hospitalization History see above [facility] Other History of Present illness NarrativePatient returns [...] [facility] Work Phone: Hospital course Narrative No data available for this section [facility] Hospital Discharge instructions No data available for this section [facility] No data available for this section [facility] reason for visit [facility] [place] [facility] Other Summary Purpose Family History No Family [...] diabetes m ellitus: Mother, Sister(V18.0, Z83.3) Status:Active Relationship Condition Age at Onset Recorded Date/T arya daughter Diabetes mellitus Unknown Hypertension Unknown Heart disease Unknown father Unknown family member Unknown Not Specified Diabetes mellitus Unknown Unknown sister Malignant neoplasm Unknown Diabetes mellitus Unknown Advance Directives No Advanced Directives Records Found Advance Directive Response Recorded Date/ Time Advance Directives No January 18, 2019 11:58am Chief Complaint SHAYNA GARCIA is being seen for an annual follow-up of. Reason for Referral Reason FB right external au ditory canal SNHL Diagnosis 1 Foreign body of righ t ear, initial encounter (T16.1XXA) Referral Organization [facility] sebastian Referring Provider First Name Moustapha Referring Provider Last Name Daniela Referring Provider Specialty Internal Me dicine Referred Provider Tana Woodall Referred Provider Specialty Ear, Nose an d Throat Referral Priority Routine Chief Complaint and Reason for Visit Chief Complaint Amb Documentation Amb Documentation Amb Documentation d/c BCC Reason for Visit Alzheimer's dementia Chronic kidney disease Hypertension Pancreatic cyst Renal mass, right Additional Source Comments INFORMATION SOURCE (unrecogn ized section and content) DATE CREATED AUTHOR 02/01/2019 [facility] DATE CREATED AUTHOR AUTHOR'S ORGANIZ ATION 08/18/2021 [employer] DATE CREATED AUTHOR AUTHOR'S ORGANIZ ATION 09/24/2021 [facility] DATE CREATED AUTHOR AUTHOR'S ORGANIZ ATION 10/20/2022 [facility] DATE CREATED AUTHOR AUTHOR'S ORGANIZ ATION 11/23/2023 [facility] DATE CREATED AUTHOR AUTHOR'S ORGANIZ ATION 02/29/2024 [facility] [employer] Patient Care team informatio n (unrecognized section and content) Team Status: Active Member Role Status Dates Moustapha Avina , DO Primary Care Provider Active Team Status: Active Member Role Status Dates Moustapha Avina , DO Primary Care Provide r, Attending Provider Active Start: January 10, 2024 Team Status: Active Member Role Status Dates Moustapha Avina , DO Primary Care Provide r, Attending Provider Active Start: January 11, 2024 Team Status: Active Member Role Status Dates Moustapha Avina , DO Primary Care Provide r, Attending Provider Active Start: January 12, 2024 Team Status: Active Member Role Status Dates Moustapha Avina , DO Primary Care Provide r, Attending Provider Active Start: January 13, 2024 Team Status: Active Member Role Status Dates Moustapha Avina , DO Primary Care Provide r, Attending Provider Active Start: January 14, 2024 Team Status: Active Member Role Status Dates Moustapha Avina , DO Primary Care Provide r, Attending Provider Active Start: January 16, 2024 Team Status: Active Member Role Status Dates Moustapha Avina , DO Primary Care Provide r, Attending Provider Active Start: January 19, 2024 Team Status: Active Member Role Status Dates Moustapha Avina DO Primary Care Provider Active Start: January 25, 2024 FRANKLIN Santizo Attending Provider Active Start : January 25, 2024 Team Status: Active Member Role Status Dates Moustapha Avina DO Primary Care Provider Active Start: February 03, 2024 FRANKLIN Williamson Attending Provider Active St art: February 03, 2024 Team Status: Inactive Member Role Status Dates Moustapha Avina , DO Primary Care Provide r, Attending Provider Active Start: February 07, 2024 End: February 07, 2024 REASON FOR VISIT (unrecogniz ed section and content) Lab resultsupdateDiverticuli tisWellnessAppt. neededUTIENT REFERRAL NOTEPatient here at her own request with complaints of constipation. Goals (unrecognized section and content) Goals may be documented in a n alternate section FOR RECORDS PERTAINING TO PATIENTS WHO ARE [...] BE BASED ON THE PRIMARY CLINICAL RECORDS. [facility] [employer] [facility]. provides no warranty or guarantee of the accuracy or completeness of information in this document.
[2024-03-07 12:33] LABS: Ammonia <10 umol/L (11-32)
[2024-03-07 12:36] LABS: Alanine Aminotransferase 28 U/L (14-59); Albumin Globulin Ratio 0.8; Albumin Level 3.1 g/dL (3.4-5.0); Alkaline Phosphatase 116 U/L (46-116); Aspartate Amino Transferase 23 U/L (15-37); Bilirubin Direct 0.1 mg/dL (0.0-0.2); Bilirubin Total 0.3 mg/dL (0.2-1.0); Globulin 4.1 g/dL; Total Protein 7.2 g/dL (6.4-8.2)
== END 2024-03-07 11:31 | disposition home or self-care (01) ==
LOC: LAB 11:30
PROVIDERS: PCP Internal Medicine; Visit Provider Physician Assistant Medical
DX: R44.3 Hallucinations, unspecified (principal)
CPT/HCPCS: 36415; 80076; 82140

== ENCOUNTER 2024-04-27 08:58 | Outpatient (RCR) | payer MEDICARE, SELFPAY | END 2024-05-03 13:56 | disposition home or self-care (01) | LOC: PT 08:58 | PROVIDERS: PCP Internal Medicine; Visit Provider Internal Medicine | DX: H81.10 Benign paroxysmal vertigo, unspecified ear (principal) | CPT/HCPCS: 95992; 97162 ==

== ENCOUNTER 2024-06-08 08:28 | Outpatient (OUT) | payer MEDICARE, SELFPAY ==
--- OUTSIDE RECORDS SUMMARY | 2024-06-08 08:44 | XMS_ITS | CCD ---
Author Organization [facility] Care Team Providers Care Sample Stitcher Name Role Phone Moustapha Avina Primary Care [...] Parks Attending Unavailable ALEXI COLEMAN Attending Unavailable KAITLIN PRIETO Attending Unavailable RADHA AVILA Attending Unavailable SERENITY TERAN Attending Unavailable KAITLIN PRIETO Attending Unavailable Allergies Allergy Classification Reported Allergen(s) Allergy Type Date of Onset Reaction(s) Facility (2 sources) patient allergy list reviewed by nurse or physicia Propensity to adverse reactions Comment:Done [employer] Other (1 source) No Known Medication Allergies; Translations: [No Known Medication Allergies] Propensity to adverse reactions (disorder) [facility] Repository Medications Current Medications Medication Drug Class(es) Dates Sig (Normalized) Sig (Original) amoxicillin 875 mg / clavulanate 125 mg oral tablet (3 sources) Penicillin-class Antibacterial Start: 08-23-2023 take 1 tablet by mouth every twelve hours Amoxicillin-Pot Clavulanate 875-125 MG 1 tablet Orally every 12 hrs for 7 days Aug, Active aspirin 81 mg delayed release oral tablet (2 sources) Platelet Aggregation Inhibitor, Nonsteroidal Anti-inflammatory Drug Start: 01-25-2024 take 81 mg by mouth once daily Aspirin Active 81 MG PO Daily January 25, 2024 12:00am donepezil hydrochloride 10 mg oral tablet (16 sources) Start: 01-25-2024 take 10 mg by [...] for 1 month, then 2x/week there after, [facility]/pharmacy #[id number], 158, cm, 09/22/22 8:59:00 EST, Height/Length Dosing, 63.5, kg, 09/22/22 8:59:00 EST, Weight Dosing Start Date: 09/22/22 Status: Ordered Lactulose (4 sources) Osmotic Laxative Start: 02-07-2024 take 10 g by mouth once daily Lactulose Active 10 GM PO Daily February 07, 2024 12:00am Start: 01-25-2024 take 20 g by mouth twice daily Lactulose Active 20 GM PO Twice daily January 25, 2024 12:00am lisinopril 20 mg oral tablet (16 sources) Angiotensin Converting Enzyme Inhibitor Start: 01-25-2024 take 20 mg by mouth once daily Lisinopril Active 20 MG PO Daily January 25, 2024 12:00am Start: 09-22-2022 lisinopril 10 mg Tab Refills(s) 0 Start Date: 09/22/22 Status: Ordered take 1 tablet by nadja every twenty-four hours Lisinopril 20 MG 1 tablet Orally Once a day for 90 days Active memantine hydrochloride 5 mg oral tablet (16 sources) [id number] Receptor Antagonist Start: 01-25-2024 take 5 mg [...] Palpitations; Translations: [Palpitations] Episodic Chronic kidney disease (20 sources) Chronic kidney disease; Translations: [Chronic kidney disease stage 3A ] Onset: 09-23-2021 09-21-2022 Chronic Conditions associated with dizziness or vertigo (12 sources) Benign paroxysmal positional vertigo; Translations: [Benign paroxysmal vertigo, bilateral] Onset: 10-13-2015 Resolved: 02-05-2020 03-09-2024 Episodic Deficiency and other anemia (1 source) Anemia; Translations: [Anemia, unspecified] 02-07-2024 Episodic Deficiency and other anemia (2 sources) Anemia, unspecified; Translations: [Anemia, unspecified] 02-07-2024 Episodic Delirium, dementia, and amnestic and other cognitive disorders (7 sources) Vascular dementia without behavioral disturbance; Translations: [Vascular dementia without behavioral disturbance] 02-05-2024 Chronic Diseases of white blood cells (2 sources) Elevated white blood cell count, unspecified; Translations: [Neutropenia] Onset: 06-21-2022 02-09-2024 Chronic Disorders of lipid metabolism (3 sources) [...] [Benign essential hypertension] Onset: 06-21-2022 09-21-2022 Chronic Fluid and electrolyte disorders (2 sources) Hyponatremia; Translations: [Hypo-osmolality and hyponatremia] 02-07-2024 Episodic Genitourinary congenital anomalies (1 source) Congenital multiple [...] Chronic Other diseases of kidney and ureters (2 sources) Renal mass; Translations: [Other specified disorders of kidney and ureter] 02-05-2024 Chronic Other diseases of kidney and ureters (3 sources) Other specified disorders of kidney and ureter; [...] classified] Chronic Other liver diseases (2 sources) Enzyme level - finding; Translations: [Transaminasemia] 02-07-2024 Episodic Other lower respiratory disease (3 sources) Dyspnea; [...] weight loss] Episodic Pancreatic disorders (not diabetes) (5 sources) Cyst of pancreas; Translations: [Cyst of [...] kidney disease (3 sources) Chronic kidney disease Esophageal disorders (9 sources) Esophageal disorders; Translations: [...] 2 Episodic Other aftercare (1 source) 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; Translations: [OTH LONG-TERM CURRENT DRUG THERAPY] Onset: 2 Episodic Other aftercare (1 source) continuous churn 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 (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) use of anticoagulants; Translations: [LONG-TERM CURRNT USE ANTICOAGULANTS] Onset: 2 Episodic Other [...] Test Name Value Interpretation Reference Range Facility Globulin Calc (S) [Mass/Vol] on 03-07-2024 Globulin (S) [Mass/Vol] 4.1 g/dL [facility] Laboratory - Chemistry and C hemistry - challengeon 03-07-2024 Albumin [Mass/Vol] 3.1 g/dL 3.4-5.0 [facility] ALP [Catalytic activity/Vol] 116 U/L 46-116 [facility] ALT [Catalytic activity/Vol] 28 U/L 14-59 [facility] AST [Catalytic activity/Vol] 23 U/L 15-37 [facility] Bilirubin [Mass/Vol] 0.3 mg/dL 0.2-1.0 [facility] Bilirubin.direct [Mass/Vol] 0.1 mg/dL 0.0-0.2 [facility] Protein [Mass/Vol] 7.2 g/dL 6.4-8.2 [facility] No Panel Informationon 03-07 Ammonia <10 umol/L 11-32 [facility] Serum or plasma albumin/glob ulin mass ratioon 03-07-2024 Albumin/Globulin [Mass ratio] 0.8 {ratio} [facility] Basophils Auto (Bld) [#/Vol] on 02-09-2024 Basophils (Bld) [#/Vol] 0.0 10 3/uL 0.0-0.1 [facility] Basophils/100 WBC Auto (Bld) on 02-09-2024 Basophils/100 WBC (Bld) 0.6 % 0.2-2.0 [facility] Eosinophils/100 WBC Auto (Bl d)on 02-09-2024 Eosinophils/100 WBC (Bld) 1.0 % 0.9-7.0 [facility] Erythrocyte distribution wid th Auto (RBC) [Ratio]on 02-09-2024 Erythrocyte distribution width (RBC) [Ratio] 14.3 % 11.0-15.0 [facility] Estimated glomerular filtrat ion rate (GFR) non- Americanon 02-09-2024 GFR/1.73 sq M.predicted among non-blacks MDRD (S/P/Bld) [Vol rate/Area] 50 mL/min/{1.73_m2} >=60 [facility] Globulin Calc (S) [Mass/Vol] on 02-09-2024 Globulin (S) [Mass/Vol] 4.1 g/dL [facility] Hematocrit Auto (Bld) [Volum e fraction]on 02-09-2024 Hematocrit (Bld) [Volume fraction] 39.3 % 36.0-48.0 [facility] Hemoglobin [Mass/volume] in Bloodon 02-09-2024 Hemoglobin (Bld) [Mass/Vol] 12.3 g/dL 12.0-16.0 [facility] Iron binding capacity [Mass/ volume] in Serum or Plasmaon 02-09-2024 Iron binding capacity [Mass/Vol] 271.0 ug/dL 250.0-450.0 [facility] Iron saturation [Mass Fracti on] in Serum or Plasmaon 02-09-2024 Iron saturation [Mass fraction] 27.3 % [facility] Laboratory - Chemistry and C hemistry - challengeon 02-09-2024 Albumin [Mass/Vol] 3.0 g/dL 3.4-5.0 [facility] ALP [Catalytic activity/Vol] 170 U/L 46-116 [facility] ALT [Catalytic activity/Vol] 29 U/L 14-59 [facility] AST [Catalytic activity/Vol] 28 U/L 15-37 [facility] Bilirubin [Mass/Vol] 0.5 mg/dL 0.2-1.0 [facility] Calcium [Mass/Vol] 9.2 mg/dL 8.5-10.1 [facility] Chloride [Moles/Vol] 104 mmol/L 98-107 [facility] CO2 [Moles/Vol] 24.6 mmol/L 21.0-32.0 [facility] Cobalamin (Vitamin B12) [Mass/Vol] 362.0 pg/mL 193.0-986.0 [facility] Creatinine [Mass/Vol] 1.03 mg/dL 0.55-1.02 [facility] Ferritin [Mass/Vol] 183.0 ng/mL 8.0-252.0 [facility] GFR/1.73 sq M.predicted MDRD (S/P/Bld) [Vol rate/Area] mL/min/{1.73_m2} >=60 [facility] Glucose [Mass/Vol] 88 mg/dL 74-106 [facility] Iron [Mass/Vol] 74.0 ug/dL 50.0-170.0 [facility] Potassium [Moles/Vol] 4.2 mmol/L 3.5-5.1 [facility] Protein [Mass/Vol] 7.1 g/dL 6.4-8.2 [facility] Sodium [Moles/Vol] 139 mmol/L 136-145 [facility] Urea nitrogen [Mass/Vol] 19.0 mg/dL 7.0-18.0 [facility] Urea nitrogen/Creatinine [Mass ratio] 18.4 mg/mg [facility] Laboratory - Hematology and Cell countson 02-09-2024 Immature granulocytes/100 WBC (Bld) 0.3 % 0.0-0.5 [facility] Leukocytes [#/volume] correc emile for nucleated erythrocytes in Blood by Automated counon 02-09-2024 WBC corrected for nucl RBC Auto (Bld) [#/Vol] 3.2 10 3/uL 4.0-11.0 [facility] Lymphocytes Auto (Bld) [#/Vo l]on 02-09-2024 Lymphocytes (Bld) [#/Vol] 1.5 10 3/uL 1.2-3.8 [facility] Lymphocytes/100 WBC Auto (Bl d)on 02-09-2024 Lymphocytes/100 WBC (Bld) 46.3 % 20.5-60.0 [facility] MCH Auto (RBC) [Entitic mass ]on 02-09-2024 MCH (RBC) [Entitic mass] 28.9 pg 26.7-34.0 [facility] MCHC Auto (RBC) [Mass/Vol]on 02-09-2024 MCHC (RBC) [Mass/Vol] 31.3 g/dL 29.9-35.2 [facility] MCV Auto (RBC) [Entitic vol] on 02-09-2024 MCV (RBC) [Entitic vol] 92.5 fL 81.0-99.0 [facility] Monocytes Auto (Bld) [#/Vol] on 02-09-2024 Monocytes (Bld) [#/Vol] 0.4 10 3/uL 0.3-0.8 [facility] Monocytes/100 WBC Auto (Bld) on 02-09-2024 Monocytes/100 WBC (Bld) 13.0 % 1.7-12.0 [facility] Neutrophils Auto (Bld) [#/Vo l]on 02-09-2024 Neutrophils (Bld) [#/Vol] 1.2 10 3/uL 1.4-6.5 [facility] Neutrophils/100 WBC Auto (Bl d)on 02-09-2024 Neutrophils/100 WBC (Bld) 38.8 % 43.0-75.0 [facility] No Panel Informationon 02-08 Eosinophils # (Auto) 0.0 10 3/uL 0.0-0.7 [facility] Folate 23.00 ng/mL 8.60-58.90 [facility] Immature Granulocyte # (Auto) 0.01 10 3/uL 0.00-0.03 [facility] Platelet mean volume Auto (B ld) [Entitic vol]on 02-09-2024 Platelet mean volume (Bld) [Entitic vol] 9.4 fL 9.5-13.5 [facility] Platelets Auto (Bld) [#/Vol] on 02-09-2024 Platelets (Bld) [#/Vol] 220 10 3/uL 150-450 [facility] RBC Auto (Bld) [#/Vol]on RBC (Bld) [#/Vol] 4.25 10 6/uL 4.20-5.40 [facility] Serum or plasma albumin/glob ulin mass ratioon 02-09-2024 Albumin/Globulin [Mass ratio] 0.7 {ratio} [facility] Serum or plasma anion gap de terminationon 02-09-2024 Anion gap [Moles/Vol] 14.6 mmol/L [facility] Estimated glomerular filtrat ion rate (GFR) non- Americanon 01-16-2024 GFR/1.73 sq M.predicted among non-blacks MDRD (S/P/Bld) [Vol rate/Area] 47 mL/min/{1.73_m2} >=60 [facility] Globulin Calc (S) [Mass/Vol] on 01-16-2024 Globulin (S) [Mass/Vol] 4.1 g/dL [facility] Laboratory - Chemistry and C hemistry - challengeon 01-16-2024 Albumin [Mass/Vol] 1.8 g/dL 3.4-5.0 [facility] ALP [Catalytic activity/Vol] 401 U/L 46-116 [facility] ALT [Catalytic activity/Vol] 204 U/L 14-59 [facility] Ammonia (P) [Moles/Vol] 20 umol/L 11-32 [facility] AST [Catalytic activity/Vol] 144 U/L 15-37 [facility] Bilirubin [Mass/Vol] 0.4 mg/dL 0.2-1.0 [facility] Calcium [Mass/Vol] 8.3 mg/dL 8.5-10.1 [facility] Chloride [Moles/Vol] 106 mmol/L 98-107 [facility] CO2 [Moles/Vol] 27.4 mmol/L 21.0-32.0 [facility] Creatinine [Mass/Vol] 1.10 mg/dL 0.55-1.02 [facility] GFR/1.73 sq M.predicted MDRD (S/P/Bld) [Vol rate/Area] 57 mL/min/{1.73_m2} >=60 [facility] Glucose [Mass/Vol] 95 mg/dL 74-106 [facility] Potassium [Moles/Vol] 3.9 mmol/L 3.5-5.1 [facility] Protein [Mass/Vol] 5.9 g/dL 6.4-8.2 [facility] Sodium [Moles/Vol] 140 mmol/L 136-145 [facility] Urea nitrogen [Mass/Vol] 14.0 mg/dL 7.0-18.0 [facility] Urea nitrogen/Creatinine [Mass ratio] 12.7 mg/mg [facility] Serum or plasma albumin/glob ulin mass ratioon 01-16-2024 Albumin/Globulin [Mass ratio] 0.4 {ratio} [facility] Serum or plasma anion gap de terminationon 01-16-2024 Anion gap [Moles/Vol] 10.5 [facility] Bas[facility] Auto (Bld) [#/Vol] on 01-14-2024 Basophils (Bld) [#/Vol] 0.1 10 3/uL 0.0-0.1 [facility] Basophils/100 WBC Auto (Bld) on 01-14-2024 Basophils/100 WBC (Bld) 1.0 % 0.2-2.0 [facility] Eosinophils/100 WBC Auto (Bl d)on 01-14-2024 Eosinophils/100 WBC (Bld) 0.2 % 0.9-7.0 [facility] Erythrocyte distribution wid th Auto (RBC) [Ratio]on 01-14-2024 Erythrocyte distribution width (RBC) [Ratio] 14.6 % 11.0-15.0 [facility] Estimated glomerular filtrat ion rate (GFR) non- Americanon 01-14-2024 GFR/1.73 sq M.predicted among non-blacks MDRD (S/P/Bld) [Vol rate/Area] 48 mL/min/{1.73_m2} >=60 [facility] Globulin Calc (S) [Mass/Vol] on 01-14-2024 Globulin (S) [Mass/Vol] 3.8 g/dL [facility] Hematocrit Auto (Bld) [Volum e fraction]on 01-14-2024 Hematocrit (Bld) [Volume fraction] 34.7 % 36.0-48.0 [facility] Hemoglobin [Mass/volume] in Bloodon 01-14-2024 Hemoglobin (Bld) [Mass/Vol] 11.2 g/dL 12.0-16.0 [facility] Laboratory - Chemistry and C hemistry - challengeon 01-14-2024 Albumin [Mass/Vol] 1.9 g/dL 3.4-5.0 [facility] ALP [Catalytic activity/Vol] 354 U/L 46-116 [facility] ALT [Catalytic activity/Vol] 238 U/L 14-59 [facility] Ammonia (P) [Moles/Vol] 27 umol/L 11-32 [facility] AST [Catalytic activity/Vol] 243 U/L 15-37 [facility] Bilirubin [Mass/Vol] 0.5 mg/dL 0.2-1.0 [facility] Calcium [Mass/Vol] 7.9 mg/dL 8.5-10.1 [facility] Chloride [Moles/Vol] 109 mmol/L 98-107 [facility] CO2 [Moles/Vol] 24.2 mmol/L 21.0-32.0 [facility] Creatinine [Mass/Vol] 1.08 mg/dL 0.55-1.02 [facility] GFR/1.73 sq M.predicted MDRD (S/P/Bld) [Vol rate/Area] 58 mL/min/{1.73_m2} >=60 [facility] Glucose [Mass/Vol] 112 mg/dL 74-106 [facility] Potassium [Moles/Vol] 3.6 mmol/L 3.5-5.1 [facility] Protein [Mass/Vol] 5.7 g/dL 6.4-8.2 [facility] Sodium [Moles/Vol] 142 mmol/L 136-145 [facility] Urea nitrogen [Mass/Vol] 11.0 mg/dL 7.0-18.0 [facility] Urea nitrogen/Creatinine [Mass ratio] 10.2 mg/mg [facility] Laboratory - Hematology and Cell countson 01-14-2024 Immature granulocytes/100 WBC (Bld) 0.6 % 0.0-0.5 [facility] Leukocytes [#/volume] correc emile for nucleated erythrocytes in Blood by Automated counon 01-14-2024 WBC corrected for nucl RBC Auto (Bld) [#/Vol] 5.2 10 3/uL 4.0-11.0 [facility] Lymphocytes Auto (Bld) [#/Vo l]on 01-14-2024 Lymphocytes (Bld) [#/Vol] 3.5 10 3/uL 1.2-3.8 [facility] Lymphocytes/100 WBC Auto (Bl d)on 01-14-2024 Lymphocytes/100 WBC (Bld) 67.1 % 20.5-60.0 [facility] MCH Auto (RBC) [Entitic mass ]on 01-14-2024 MCH (RBC) [Entitic mass] 29.7 pg 26.7-34.0 [facility] MCHC Auto (RBC) [Mass/Vol]on 01-14-2024 MCHC (RBC) [Mass/Vol] 32.3 g/dL 29.9-35.2 [facility] MCV Auto (RBC) [Entitic vol] on 01-14-2024 MCV (RBC) [Entitic vol] 92.0 fL 81.0-99.0 [facility] Monocytes Auto (Bld) [#/Vol] on 01-14-2024 Monocytes (Bld) [#/Vol] 0.3 10 3/uL 0.3-0.8 [facility] Monocytes/100 WBC Auto (Bld) on 01-14-2024 Monocytes/100 WBC (Bld) 5.9 % 1.7-12.0 [facility] Neutrophils Auto (Bld) [#/Vo l]on 01-14-2024 Neutrophils (Bld) [#/Vol] 1.3 10 3/uL 1.4-6.5 [facility] Neutrophils/100 WBC Auto (Bl d)on 01-14-2024 Neutrophils/100 WBC (Bld) 25.2 % 43.0-75.0 [facility] No Panel Informationon 01-13 Eosinophils # (Auto) 0.0 10 3/uL 0.0-0.7 [facility] Immature Granulocyte # (Auto) 0.03 10 3/uL 0.00-0.03 [facility] Platelet mean volume Auto (B ld) [Entitic vol]on 01-14-2024 Platelet mean volume (Bld) [Entitic vol] 9.1 fL 9.5-13.5 [facility] Platelets Auto (Bld) [#/Vol] on 01-14-2024 Platelets (Bld) [#/Vol] 202 10 3/uL 150-450 [facility] RBC Auto (Bld) [#/Vol]on RBC (Bld) [#/Vol] 3.77 10 6/uL 4.20-5.40 [facility] Serum or plasma albumin/glob ulin mass ratioon 01-14-2024 Albumin/Globulin [Mass ratio] 0.5 {ratio} [facility] Serum or plasma anion gap de terminationon 01-14-2024 Anion gap [Moles/Vol] 12.4 [facility] Bas[facility] Auto (Bld) [#/Vol] on 01-13-2024 Basophils (Bld) [#/Vol] 0.1 10 3/uL 0.0-0.1 [facility] Basophils/100 WBC Auto (Bld) on 01-13-2024 Basophils/100 WBC (Bld) 1.1 % 0.2-2.0 [facility] Eosinophils/100 WBC Auto (Bl d)on 01-13-2024 Eosinophils/100 WBC (Bld) 0.2 % 0.9-7.0 [facility] Erythrocyte distribution wid th Auto (RBC) [Ratio]on 01-13-2024 Erythrocyte distribution width (RBC) [Ratio] 14.6 % 11.0-15.0 [facility] Estimated glomerular filtrat ion rate (GFR) non- Americanon 01-13-2024 GFR/1.73 sq M.predicted among non-blacks MDRD (S/P/Bld) [Vol rate/Area] 44 mL/min/{1.73_m2} >=60 [facility] Globulin Calc (S) [Mass/Vol] on 01-13-2024 Globulin (S) [Mass/Vol] 3.8 g/dL [facility] Hematocrit Auto (Bld) [Volum e fraction]on 01-13-2024 Hematocrit (Bld) [Volume fraction] 34.9 % 36.0-48.0 [facility] Hemoglobin [Mass/volume] in Bloodon 01-13-2024 Hemoglobin (Bld) [Mass/Vol] 10.9 g/dL 12.0-16.0 [facility] Laboratory - Chemistry and C hemistry - challengeon 01-13-2024 Albumin [Mass/Vol] 1.8 g/dL 3.4-5.0 [facility] ALP [Catalytic activity/Vol] 296 U/L 46-116 [facility] ALT [Catalytic activity/Vol] 205 U/L 14-59 [facility] Ammonia (P) [Moles/Vol] 38 umol/L 11-32 [facility] AST [Catalytic activity/Vol] 200 U/L 15-37 [facility] Bilirubin [Mass/Vol] 0.5 mg/dL 0.2-1.0 [facility] Calcium [Mass/Vol] 7.8 mg/dL 8.5-10.1 [facility] Chloride [Moles/Vol] 110 mmol/L 98-107 [facility] CO2 [Moles/Vol] 24.0 mmol/L 21.0-32.0 [facility] Creatinine [Mass/Vol] 1.17 mg/dL 0.55-1.02 [facility] GFR/1.73 sq M.predicted MDRD (S/P/Bld) [Vol rate/Area] 53 mL/min/{1.73_m2} >=60 [facility] Glucose [Mass/Vol] 99 mg/dL 74-106 [facility] Lipase [Catalytic activity/Vol] 46.0 U/L 16.0-77.0 [facility] Potassium [Moles/Vol] 4.0 mmol/L 3.5-5.1 [facility] Protein [Mass/Vol] 5.6 g/dL 6.4-8.2 [facility] Sodium [Moles/Vol] 141 mmol/L 136-145 [facility] Urea nitrogen [Mass/Vol] 16.0 mg/dL 7.0-18.0 [facility] Urea nitrogen/Creatinine [Mass ratio] 13.7 mg/mg [facility] Laboratory - Hematology and Cell countson 01-13-2024 Immature granulocytes/100 WBC (Bld) 0.5 % 0.0-0.5 [facility] Leukocytes [#/volume] correc emile for nucleated erythrocytes in Blood by Automated counon 01-13-2024 WBC corrected for nucl RBC Auto (Bld) [#/Vol] 6.4 10 3/uL 4.0-11.0 [facility] Lymphocytes Auto (Bld) [#/Vo l]on 01-13-2024 Lymphocytes (Bld) [#/Vol] 4.5 10 3/uL 1.2-3.8 [facility] Lymphocytes/100 WBC Auto (Bl d)on 01-13-2024 Lymphocytes/100 WBC (Bld) 70.8 % 20.5-60.0 [facility] MCH Auto (RBC) [Entitic mass ]on 01-13-2024 MCH (RBC) [Entitic mass] 29.1 pg 26.7-34.0 [facility] MCHC Auto (RBC) [Mass/Vol]on 01-13-2024 MCHC (RBC) [Mass/Vol] 31.2 g/dL 29.9-35.2 [facility] MCV Auto (RBC) [Entitic vol] on 01-13-2024 MCV (RBC) [Entitic vol] 93.1 fL 81.0-99.0 [facility] Monocytes Auto (Bld) [#/Vol] on 01-13-2024 Monocytes (Bld) [#/Vol] 0.4 10 3/uL 0.3-0.8 [facility] Monocytes/100 WBC Auto (Bld) on 01-13-2024 Monocytes/100 WBC (Bld) 6.6 % 1.7-12.0 [facility] Neutrophils Auto (Bld) [#/Vo l]on 01-13-2024 Neutrophils (Bld) [#/Vol] 1.3 10 3/uL 1.4-6.5 [facility] Neutrophils/100 WBC Auto (Bl d)on 01-13-2024 Neutrophils/100 WBC (Bld) 20.8 % 43.0-75.0 [facility] No Panel Informationon 01-12 Eosinophils # (Auto) 0.0 10 3/uL 0.0-0.7 [facility] Immature Granulocyte # (Auto) 0.03 10 3/uL 0.00-0.03 [facility] Platelet mean volume Auto (B ld) [Entitic vol]on 01-13-2024 Platelet mean volume (Bld) [Entitic vol] 9.0 fL 9.5-13.5 [facility] Platelets Auto (Bld) [#/Vol] on 01-13-2024 Platelets (Bld) [#/Vol] 203 10 3/uL 150-450 [facility] RBC Auto (Bld) [#/Vol]on RBC (Bld) [#/Vol] 3.75 10 6/uL 4.20-5.40 [facility] Serum or plasma albumin/glob ulin mass ratioon 01-13-2024 Albumin/Globulin [Mass ratio] 0.5 {ratio} [facility] Serum or plasma anion gap de terminationon 01-13-2024 Anion gap [Moles/Vol] 11.0 mmol/L Fi [facility] Activated partial thrombopla stin time (aPTT) in platelet poor plasma by coagulation aon 01-12-2024 aPTT Coag (PPP) [Time] 31.0 s 22.3-36.2 Fi [facility] Automated epithelial cells c ount in urine sediment (number/area)on 01-12-2024 Epithelial cells Auto (Urine sed) [#/Area] FEW #/LPF NONE/RARE [facility] Automated urine specific gra vity by refractometryon 01-12-2024 Specific gravity Refractometry automated (U) [Rel density] 1.020 1.005-1.025 [facility] Bacteria [Presence] in Urine by Automatedon 01-12-2024 Bacteria Auto Ql (U) SMALL #/HPF NONE SEEN [facility] Basophils Auto (Bld) [#/Vol] on 01-12-2024 Basophils (Bld) [#/Vol] 0.1 10 3/uL 0.0-0.1 [facility] Basophils/100 WBC Auto (Bld) on 01-12-2024 Basophils/100 WBC (Bld) 1.4 % 0.2-2.0 [facility] Bilirubin Auto test strip (U ) [Mass/Vol]on 01-12-2024 Bilirubin (U) [Mass/Vol] Negative NEGATIVE [facility] Casts typing in urine sedime nt by light microscopyon 01-12-2024 Casts LM Nom (Urine sed) NONE SEEN #/LPF NONE SEEN [facility] Color Auto (U)on 01-12-2024 Color (U) YELLOW YELLOW [facility] Eosinophils/100 WBC Auto (Bl d)on 01-12-2024 Eosinophils/100 WBC (Bld) 0.0 % 0.9-7.0 [facility] Erythrocyte distribution wid th Auto (RBC) [Ratio]on 01-12-2024 Erythrocyte distribution width (RBC) [Ratio] 14.5 % 11.0-15.0 [facility] Estimated glomerular filtrat ion rate (GFR) non- Americanon 01-12-2024 GFR/1.73 sq M.predicted among non-blacks MDRD (S/P/Bld) [Vol rate/Area] 41 mL/min/{1.73_m2} >=60 [facility] Globulin Calc (S) [Mass/Vol] on 01-12-2024 Globulin (S) [Mass/Vol] 3.9 g/dL [facility] Glucose [Mass/volume] in Uri ne by Test stripon 01-12-2024 Glucose Test strip (U) [Mass/Vol] Negative NEGATIVE [facility] Hematocrit Auto (Bld) [Volum e fraction]on 01-12-2024 Hematocrit (Bld) [Volume fraction] 36.3 % 36.0-48.0 [facility] Hemoglobin [Mass/volume] in Bloodon 01-12-2024 Hemoglobin (Bld) [Mass/Vol] 11.4 g/dL 12.0-16.0 [facility] INR in Platelet poor plasma by Coagulation assayon 01-12-2024 INR Coag (PPP) [Relative time] 1.08 {INR} [facility] Comment on above: DESIRED INR:2.0-3.0 CONDITIONS NOT LISTED BELOW2.5-3.5 FOR PROSTHETIC HEART VALVE REPLACEMENT2.5-3.5 RECURRENT THROMBOSIS Ketones Auto test strip (U) [Mass/Vol]on 01-12-2024 Ketones (U) [Mass/Vol] Negative [facility]GATIVE [facility] hem[facility] - challengeon 01-12-2024 Ammonia (P) [Moles/Vol] 50 umol/L 11-32 [facility] Comment on above: RESULTS CALLED TO ISAIAS MCALLISTERRN Albumin [Mass/Vol] 2.1 g/dL 3.4-5.0 [facility] ALP [Catalytic activity/Vol] 331 U/L 46-116 [facility] ALT [Catalytic activity/Vol] 216 U/L 14-59 [facility] AST [Catalytic activity/Vol] 250 U/L 15-37 [facility] Bilirubin [Mass/Vol] 0.6 mg/dL 0.2-1.0 [facility] Calcium [Mass/Vol] 8.2 mg/dL 8.5-10.1 [facility] Chloride [Moles/Vol] 105 mmol/L 98-107 [facility] CO2 [Moles/Vol] 25.2 mmol/L 21.0-32.0 [facility] Creatinine [Mass/Vol] 1.24 mg/dL 0.55-1.02 [facility] GFR/1.73 sq M.predicted MDRD (S/P/Bld) [Vol rate/Area] 49 mL/min/{1.73_m2} >=60 [facility] Glucose [Mass/Vol] 108 mg/dL 74-106 [facility] Potassium [Moles/Vol] 3.9 mmol/L 3.5-5.1 [facility] Protein [Mass/Vol] 6.0 g/dL 6.4-8.2 [facility] Sodium [Moles/Vol] 137 mmol/L 136-145 [facility] Urea nitrogen [Mass/Vol] 23.0 mg/dL 7.0-18.0 [facility] Urea nitrogen/Creatinine [Mass ratio] 18.5 mg/mg [facility] Laboratory - Hematology and Cell countson 01-12-2024 Immature granulocytes/100 WBC (Bld) 1.2 % 0.0-0.5 [facility] Leukocytes [#/area] in Urine sediment by Automated counton 01-12-2024 WBC Auto (Urine sed) [#/Area] 0-2 #/HPF 0-2 [facility] Leukocytes [#/area] in Urine sediment by Microscopy high power fieldon 01-12-2024 WBC LM.HPF (Urine sed) [#/Area] 5-10 #/HPF NONE SEEN [facility] Leukocytes [#/volume] correc emile for nucleated erythrocytes in Blood by Automated counon 01-12-2024 WBC corrected for nucl RBC Auto (Bld) [#/Vol] 5.8 10 3/uL 4.0-11.0 [facility] Lymphocytes Auto (Bld) [#/Vo l]on 01-12-2024 Lymphocytes (Bld) [#/Vol] 3.3 10 3/uL 1.2-3.8 [facility] Lymphocytes/100 WBC Auto (Bl d)on 01-12-2024 Lymphocytes/100 WBC (Bld) 57.0 % 20.5-60.0 [facility] MCH Auto (RBC) [Entitic mass ]on 01-12-2024 MCH (RBC) [Entitic mass] 29.5 pg 26.7-34.0 [facility] MCHC Auto (RBC) [Mass/Vol]on 01-12-2024 MCHC (RBC) [Mass/Vol] 31.4 g/dL 29.9-35.2 [facility] MCV Auto (RBC) [Entitic vol] on 01-12-2024 MCV (RBC) [Entitic vol] 93.8 fL 81.0-99.0 [facility] Monocytes Auto (Bld) [#/Vol] on 01-12-2024 Monocytes (Bld) [#/Vol] 0.4 10 3/uL 0.3-0.8 [facility] Monocytes/100 WBC Auto (Bld) on 01-12-2024 Monocytes/100 WBC (Bld) 6.7 % 1.7-12.0 [facility] Mucus LM Ql (Urine sed)on Mucus Ql (Urine sed) NONE SEEN NONE SEEN [facility] Neutrophils Auto (Bld) [#/Vo l]on 01-12-2024 Neutrophils (Bld) [#/Vol] 2.0 10 3/uL 1.4-6.5 [facility] Neutrophils/100 WBC Auto (Bl d)on 01-12-2024 Neutrophils/100 WBC (Bld) 33.7 % 43.0-75.0 [facility] No Panel Informationon 01-11 Eosinophils # (Auto) 0.0 10 3/uL 0.0-0.7 [facility] Immature Granulocyte # (Auto) 0.07 10 3/uL 0.00-0.03 [facility] Urine Culture Reflexed YES [facility] Urine Microscopic Review YES [facility] No Panel InformationOrdered By: Moustapha Avina on 01-12-2024 Blood Culture 2 [facility] Blood Culture 1 [facility] Platelet mean volume Auto (B ld) [Entitic vol]on 01-12-2024 Platelet mean volume (Bld) [Entitic vol] 9.9 fL 9.5-13.5 [facility] Platelets Auto (Bld) [#/Vol] on 01-12-2024 Platelets (Bld) [#/Vol] 199 10 3/uL 150-450 [facility] Protein Auto test strip (U) [Mass/Vol]on 01-12-2024 Protein (U) [Mass/Vol] TRACE mg/dL NEG/TRACE F [facility] Prothrombin time (PT)on 12-19 PT Coag (PPP) [Time] 11.4 s 9.0-11.6 [facility] RBC Auto (Bld) [#/Vol]on RBC (Bld) [#/Vol] 3.87 10 6/uL 4.20-5.40 [facility] Serum or plasma albumin/glob ulin mass ratioon 01-12-2024 Albumin/Globulin [Mass ratio] 0.5 {ratio} [facility] Serum or plasma anion gap de terminationon 01-12-2024 Anion gap [Moles/Vol] 10.7 mmol/L [facility] Specific gravity Auto test s trip (U) [Rel density]on 01-12-2024 Specific gravity (U) [Rel density] CLEAR CLEAR [facility] Urine hemoglobin detection b y automated test stripon 01-12-2024 Hemoglobin Auto test strip Ql (U) Negative NEGATIVE [facility] Urine nitrite detection by a utomated test stripon 01-12-2024 Nitrite Auto test strip Ql (U) SMALL NEGATIVE [facility] Nitrite Auto test strip Ql (U) Negative NEGATIVE [facility] Urine sediment crystal ident ification by light microscopyon 01-12-2024 Crystals LM Nom (Urine sed) None Seen #/HPF None Seen [facility] Urobilinogen Auto test strip (U) [Mass/Vol]on 01-12-2024 Urobilinogen Qn (U) 1.0 {Jordyn'U}/dL 0.2-1.0 [facility] pH Auto test strip (U)on pH (U) 5.5 [pH] 5.0-9.0 [facility] Basophils/100 WBC Manual cnt (Bld)on 01-11-2024 Basophils/100 WBC (Bld) 0.0 % 0.2-2.0 [facility] Diagnostic impression [Inter pretation] in Specimen Narrativeon 01-11-2024 Diagnostic impression Mol[employer] Tirso (Unsp spec) [Interp] Comment . [facility] Comment on above: Not infected with HC V unless early or acute infection issuspected (which may be delayed in an immunocompromisedindividual), or other evidence exists to indicate HCVinfection.Performed at: [facility] [employer] [id number] Director: Tulio Huntley PhD, Phone: [phone] Eosinophils/100 WBC Manual c nt (Bld)on 01-11-2024 Eosinophils/100 WBC (Bld) 0.0 % 0.9-7.0 [facility] Erythrocyte distribution wid th Auto (RBC) [Ratio]on 01-11-2024 Erythrocyte distribution width (RBC) [Ratio] 14.4 % 11.0-15.0 [facility] Estimated glomerular filtrat ion rate (GFR) non- Americanon 01-11-2024 GFR/1.73 sq M.predicted among non-blacks MDRD (S/P/Bld) [Vol rate/Area] 34 mL/min/{1.73_m2} >=60 [facility] Globulin Calc (S) [Mass/Vol] on 01-11-2024 Globulin (S) [Mass/Vol] 3.7 g/dL [facility] Hematocrit Auto (Bld) [Volum e fraction]on 01-11-2024 Hematocrit (Bld) [Volume fraction] 36.3 % 36.0-48.0 [facility] Hemoglobin [Mass/volume] in Bloodon 01-11-2024 Hemoglobin (Bld) [Mass/Vol] 11.4 g/dL 12.0-16.0 [facility] Hepatitis B virus surface Ag [Presence] in Serum or Plasma by Immunoassayon 01-11-2024 HBV surface Ag IA Ql Negative Negative [facility] Laboratory - Chemistry and C hemistry - challengeon 01-11-2024 Ammonia (P) [Moles/Vol] 34 umol/L 11-32 [facility] Albumin [Mass/Vol] 2.2 g/dL 3.4-5.0 [facility] ALP [Catalytic activity/Vol] 340 U/L 46-116 [facility] ALT [Catalytic activity/Vol] 189 U/L 14-59 [facility] AST [Catalytic activity/Vol] 151 U/L 15-37 [facility] Bilirubin [Mass/Vol] 0.6 mg/dL 0.2-1.0 [facility] Calcium [Mass/Vol] 8.3 mg/dL 8.5-10.1 [facility] Chloride [Moles/Vol] 103 mmol/L 98-107 [facility] CO2 [Moles/Vol] 23.4 mmol/L 21.0-32.0 [facility] Creatinine [Mass/Vol] 1.44 mg/dL 0.55-1.02 [facility] GFR/1.73 sq M.predicted MDRD (S/P/Bld) [Vol rate/Area] 42 mL/min/{1.73_m2} >=60 [facility] Glucose [Mass/Vol] 74 mg/dL 74-106 [facility] Potassium [Moles/Vol] 4.2 mmol/L 3.5-5.1 [facility] Protein [Mass/Vol] 5.9 g/dL 6.4-8.2 [facility] Sodium [Moles/Vol] 134 mmol/L 136-145 [facility] Urea nitrogen [Mass/Vol] 29.0 mg/dL 7.0-18.0 [facility] Urea nitrogen/Creatinine [Mass ratio] 20.1 mg/mg [facility] Laboratory - Hematology and Cell countson 01-11-2024 Band form neutrophils/100 WBC (Bld) 13.0 % 0-5 [facility] Lymphocytes/100 WBC (Bld) 9.0 % 20.5-60.0 [facility] Monocytes/100 WBC (Bld) 11.0 % 1.7-12.0 [facility] Leukocytes [#/volume] correc emile for nucleated erythrocytes in Blood by Automated counon 01-11-2024 WBC corrected for nucl RBC Auto (Bld) [#/Vol] 6.3 10 3/uL 4.0-11.0 [facility] MCH Auto (RBC) [Entitic mass ]on 01-11-2024 MCH (RBC) [Entitic mass] 29.8 pg 26.7-34.0 [facility] MCHC Auto (RBC) [Mass/Vol]on 01-11-2024 MCHC (RBC) [Mass/Vol] 31.4 g/dL 29.9-35.2 [facility] MCV Auto (RBC) [Entitic vol] on 01-11-2024 MCV (RBC) [Entitic vol] 94.8 fL 81.0-99.0 [facility] No Panel Informationon 01-10 Hepatitis A IgM Antibody Negative Negative [facility] Hepatitis B Core IgM Antibody Negative Negative [facility] Absolute Basophils (Manual) 0.00 10 3/uL 0.00-0.10 [facility] Band Neutrophils # (Manual) 0.8 10 3/uL 0.0-0.3 [facility] Eosinophils # (Manual) 0.00 10 3/uL 0.00-0.70 [facility] Lymphocytes # (Manual) 0.56 10 3/uL 1.20-3.80 [facility] Monocytes # (Manual) 0.69 10 3/uL 0.30-0.80 [facility] Reactive Lymphocytes 2.07 [facility] Reactive Lymphocytes 33.0 % [facility] Segmented Neutrophils # (Manual) 2.14 10 3/uL 1.4-6.5 [facility] Platelet mean volume Auto (B ld) [Entitic vol]on 01-11-2024 Platelet mean volume (Bld) [Entitic vol] 9.2 fL 9.5-13.5 [facility] Platelets Auto (Bld) [#/Vol] on 01-11-2024 Platelets (Bld) [#/Vol] 202 10 3/uL 150-450 [facility] RBC Auto (Bld) [#/Vol]on RBC (Bld) [#/Vol] 3.83 10 6/uL 4.20-5.40 [facility] Segmented neutrophils/100 WB C Manual cnt (Bld)on 01-11-2024 Segmented neutrophils/100 WBC (Bld) 34.0 % [facility] Serum or plasma albumin/glob ulin mass ratioon 01-11-2024 Albumin/Globulin [Mass ratio] 0.6 {ratio} [facility] Serum or plasma anion gap de terminationon 01-11-2024 Anion gap [Moles/Vol] 11.8 [facility]L [facility] Serum or plasma hepatitis C virus antibody signal/cutoff ratio by immunoassay (relation 01-11-2024 HCV Ab Signal/Cutoff IA [Rel units/Vol] Non-Reactive Non Reactive [facility] Amorphous urine sedimenton 0 01-10-2024 Amorphous sediment LM Ql (Urine sed) MANY [facility] Automated epithelial cells c ount in urine sediment (number/area)on 01-10-2024 Epithelial cells Auto (Urine sed) [#/Area] NONE SEEN #/LPF NONE/RARE [facility] Automated urine hyaline cast s count (number/volume)on 01-10-2024 Hyaline casts Auto (U) [#/Vol] FEW [facility] Automated urine specific gra vity by refractometryon 01-10-2024 Specific gravity Refractometry automated (U) [Rel density] 1.025 1.005-1.025 [facility] Bacteria [Presence] in Urine by Automatedon 01-10-2024 Bacteria Auto Ql (U) NONE SEEN #/HPF NONE SEEN [facility] Basophils/100 WBC Manual cnt (Bld)on 01-10-2024 Basophils/100 WBC (Bld) 0.0 % 0.2-2.0 [facility] Bilirubin Auto test strip (U ) [Mass/Vol]on 01-10-2024 Bilirubin (U) [Mass/Vol] SMALL NEGATIVE [facility] Casts typing in urine sedime nt by light microscopyon 01-10-2024 Casts LM Nom (Urine sed) SEEN #/LPF NONE SEEN [facility] Color Auto (U)on 01-10-2024 Color (U) DK. ORANGE YELLOW [facility] Eosinophils/100 WBC Manual c nt (Bld)on 01-10-2024 Eosinophils/100 WBC (Bld) 0.0 % 0.9-7.0 [facility] Erythrocyte distribution wid th Auto (RBC) [Ratio]on 01-10-2024 Erythrocyte distribution width (RBC) [Ratio] 14.2 % 11.0-15.0 [facility] Estimated glomerular filtrat ion rate (GFR) non- Americanon 01-10-2024 GFR/1.73 sq M.predicted among non-blacks MDRD (S/P/Bld) [Vol rate/Area] 27 mL/min/{1.73_m2} >=60 [facility] Fine granular cast count in urine sediment by microscopy (number/low power field )on 01-10-2024 Fine Granular Casts LM.LPF (Urine sed) [#/Area] FEW [facility] Glucose [Mass/volume] in Uri ne by Test stripon 01-10-2024 Glucose Test strip (U) [Mass/Vol] Negative NEGATIVE [facility] Hematocrit Auto (Bld) [Volum e fraction]on 01-10-2024 Hematocrit (Bld) [Volume fraction] 37.0 % 36.0-48.0 [facility] Hemoglobin [Mass/volume] in Bloodon 01-10-2024 Hemoglobin (Bld) [Mass/Vol] 12.1 g/dL 12.0-16.0 [facility] Ketones Auto test strip (U) [Mass/Vol]on 01-10-2024 Ketones (U) [Mass/Vol] TRACE mg/dL NEGATIVE F [facility] Laboratory - Chemistry and C hemistry - challengeon 01-10-2024 Calcium [Mass/Vol] 8.7 mg/dL 8.5-10.1 [facility] Chloride [Moles/Vol] 99 mmol/L 98-107 [facility] CO2 [Moles/Vol] 22.3 mmol/L 21.0-32.0 [facility] Creatinine [Mass/Vol] 1.78 mg/dL 0.55-1.02 [facility] GFR/1.73 sq M.predicted MDRD (S/P/Bld) [Vol rate/Area] 33 mL/min/{1.73_m2} >=60 [facility] Glucose [Mass/Vol] 84 mg/dL 74-106 [facility] Potassium [Moles/Vol] 4.3 mmol/L 3.5-5.1 [facility] Sodium [Moles/Vol] 131 mmol/L 136-145 [facility] Urea nitrogen [Mass/Vol] 32.0 mg/dL 7.0-18.0 [facility] Urea nitrogen/Creatinine [Mass ratio] 18.0 mg/mg [facility] Laboratory - Hematology and Cell countson 01-10-2024 Band form neutrophils/100 WBC (Bld) 0.0 % 0-5 [facility] Lymphocytes/100 WBC (Bld) 13.0 % 20.5-60.0 [facility] Monocytes/100 WBC (Bld) 8.0 % 1.7-12.0 [facility] Leukocytes [#/area] in Urine sediment by Automated counton 01-10-2024 WBC Auto (Urine sed) [#/Area] NONE SEEN #/HPF 0-2 [facility] Leukocytes [#/area] in Urine sediment by Microscopy high power fieldon 01-10-2024 WBC LM.HPF (Urine sed) [#/Area] NONE SEEN #/HPF NONE SEEN [facility] Leukocytes [#/volume] correc emile for nucleated erythrocytes in Blood by Automated counon 01-10-2024 WBC corrected for nucl RBC Auto (Bld) [#/Vol] 6.3 10 3/uL 4.0-11.0 [facility] MCH Auto (RBC) [Entitic mass ]on 01-10-2024 MCH (RBC) [Entitic mass] 29.9 pg 26.7-34.0 [facility] MCHC Auto (RBC) [Mass/Vol]on 01-10-2024 MCHC (RBC) [Mass/Vol] 32.7 g/dL 29.9-35.2 [facility] MCV Auto (RBC) [Entitic vol] on 01-10-2024 MCV (RBC) [Entitic vol] 91.4 fL 81.0-99.0 [facility] Mucus LM Ql (Urine sed)on Mucus Ql (Urine sed) TRACE NONE SEEN [facility] No Panel Informationon 01-09 Urine Culture Reflexed NO Fi [facility] Absolute Basophils (Manual) 0.00 10 3/uL 0.00-0.10 [facility] Band Neutrophils # (Manual) 0.0 10 3/uL 0.0-0.3 [facility] Eosinophils # (Manual) 0.00 10 3/uL 0.00-0.70 [facility] Lymphocytes # (Manual) 0.81 10 3/uL 1.20-3.80 [facility] Monocytes # (Manual) 0.50 10 3/uL 0.30-0.80 [facility] Reactive Lymphocytes 1.82 [facility] Reactive Lymphocytes 29.0 % [facility] Segmented Neutrophils # (Manual) 2.70 10 3/uL 1.4-6.5 [facility] Platelet mean volume Auto (B ld) [Entitic vol]on 01-10-2024 Platelet mean volume (Bld) [Entitic vol] 8.9 fL 9.5-13.5 [facility] Platelets Auto (Bld) [#/Vol] on 01-10-2024 Platelets (Bld) [#/Vol] 219 10 3/uL 150-450 [facility] Protein Auto test strip (U) [Mass/Vol]on 01-10-2024 Protein (U) [Mass/Vol] 30 mg/dL NEG/TRACE [facility] RBC Auto (Bld) [#/Vol]on RBC (Bld) [#/Vol] 4.05 10 6/uL 4.20-5.40 [facility] Segmented neutrophils/100 WB C Manual cnt (Bld)on 01-10-2024 Segmented neutrophils/100 WBC (Bld) 43.0 % [facility] Serum or plasma anion gap de terminationon 01-10-2024 Anion gap [Moles/Vol] 14.0 mmol/L Fi [facility] Specific gravity Auto test s trip (U) [Rel density]on 01-10-2024 Specific gravity (U) [Rel density] CLEAR CLEAR [facility] Urine hemoglobin detection b y automated test stripon 01-10-2024 Hemoglobin Auto test strip Ql (U) TRACE-I NEGATIVE [facility] Urine nitrite detection by a utomated test stripon 01-10-2024 Nitrite Auto test strip Ql (U) Negative NEGATIVE [facility] Urine sediment crystal ident ification by light microscopyon 01-10-2024 Crystals LM Nom (Urine sed) None Seen #/HPF None Seen [facility] Urobilinogen Auto test strip (U) [Mass/Vol]on 01-10-2024 Urobilinogen Qn (U) 1.0 {Jordyn'U}/dL 0.2-1.0 [facility] pH Auto test strip (U)on pH (U) 5.5 [pH] 5.0-9.0 [facility] Ambulatory Visit Summaryon 0 11-22-2023 Ambulatory Visit [...] KEIKO ROCK PA-C Where: [facility] Lianet [facility] Patient Educationon 11-22-19 Patient Education Gastroenterology Constipation, [...] as fried or sweet foods. These include bulgarian fries, hamburgers, cookies, candies, and soda. ? Drink enough fluid to keep your urine pale yellow. General instructions ? Exercise regularly or as told by your health care provider. Try to do 150 minutes of moderate exercise each week. ? Use the bathroom when you have the urge to go. Do not hold it in. ? Take xbmq-pks-yksgawh and prescription medicines only as told by [...] keep your urine pale yellow. ? Take rkze-iam-fnvfgac and prescription medicines only as told by your health care provider. This includes any fiber supplements. This information is not intended to replace advice given to you by your health care provider. Make sure you discuss any questions you have with your health care provider. Document Revised: 07/23/2020 Document Reviewed: 07/23/2020 [employer] Patient Education ? 2022 [employer] [facility] Urology Office/Clinic Noteon 11-22-2023 Urology Office/Clinic Note Chief Complaint follow up HPI Staff DANIELLE pt 1yr DEIDRE Last seen by LIYA 11/24/22 DX: Angiomyolipoma of Rt Kidney, Recurrent UTI, Vaginal Atrophy & Contact dermatitis. Pt has since then been seen in our office by DANIELLE 05/04/23 due to possible UTI. At that time pt was not using Estrace Cream,KMGil advised pt to restart. DEIDRE scheduled 11/18/23 @ [facility] pt. 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, preparing the chart, conducting the [...] Recorded pneumococcal 13-valent vaccine 02/15/2020 Recorded [facility] Comment on above: Result Comment: Elec tronically Signed By: KEIKO ROCK PA-C\.br\Date and Time Signed: 11/22/23 09:21 EST RAD - Ultrasound Reporton RAD - Ultrasound Report [id number] #1.00TIFF [facility] Reminderson 11-15-2023 Reminders - From: KEIKO ROCK PA-C To: [facility] - Recalls eLx; Sent: 11/24/2022 11:11:50 EST Show up: 10/27/2023 11:11:00 EST Subject: DEIDRE Due Date/Time: 11/25/2023 11:11:00 EST needs DEIDRE for angiomyolipoma f/u prior to 1 yr f/u in november 2023 order faxed to [facility] on vm remind pt to make sure she gets the DEIDRE done, advise pt to call our office [facility] Screenson 05-05-2023 Screens [id number] 6#1.00CD:127 [facility] Ambulatory Visit Summaryon 0 05-04-2023 Ambulatory [...] Follow-Up Appointments Tuesday 8:30 AM EST With: LEX HARRY, KEIKO Beth Where: [facility] Patient Educationon 05-04-20 23 Patient Education Urinary [...] these instructions at home: Medicines ? Take domh-cxk-hrkpejl and prescription medicines only as told by [...] provider. Document Revised: 04/17/2021 Document Reviewed: 04/17/2021 [employer] Patient Education ? 2022 [employer] Obstetrics and Gynecology Urinary Tract Infection, Adult [...] You h (more content not included)... [facility] Urology Office/Clinic Noteon 05-04-2023 Urology Office/Clinic Note Chief Complaint uti symptoms? [facility] Staff 87 year old female [...] pharm on file. -Advised pt to contact STERILE TECH or mortgage sales manager regarding skin irritation. -Again discussed importance of [...] tests in (more content not included)... [facility] Comment on above: Result Comment: Elec tronically Signed By: Charly TODD, Cassidy Washington.br\Date and Time Signed: 05/04/23 18:22 EDT\.br\Electronically Co-Signed By: Xuan Mortensen.br\Date and Time Co-Signed: 05/04/23 11:43 EDT Consultation Noteon 12-11-19 Consultation Note [id number]# 1.00CD:127 [facility] Ambulatory Visit Summaryon 0 11-24-2022 Ambulatory Visit Summary SHAYNA GARCIA :1935 Visit Date:11/24/2022 Ambulatory Visit Instructions Your Diagnosis Recurrent UTI Tests Performed Urnls Dip Stick Auto w/o Microscopy POC 84202 Your Care Team Attending Physician - KEIKO [...] [facility] Patient Educationon 11-25-19 23 Patient Education Obstetrics and Gynecology Atrophic Vaginitis [...] are. Treatment may include: ? Using an lglb-miy-xolgoki vaginal lubricant before sex. ? Using a [...] these instructions at home: Medicines ? Take smjy-syv-hzrnmrc and prescription medicines only as told by your health care provider. Do not use herbal or alternative medicines unless your health care provider says that you can. ? Use umyh-jog-cpdkbne creams, lubricants, or moisturizers for dryness only [...] 01/20/2016 Document Revised: 08/18/2018 Document Reviewed: 06/01/2018 [employer] Patient Education ? 2019 [employer]. [facility] Urology Office/Clinic Noteon 11-24-2022 Urology [...] E&M of Est. Patient Moderate 30-39 Min 78238 E&M of Est. Patient Moderate 30-39 Min 71685 2. Recurrent UTI (N39.0: Urinary tract infection, site not specified) No UTIs since last visit. Has been using estrogen cream 2x per week as instructed. CT 10/15/22 showed no renal calculus. Ordered: E&M of Est. Patient Moderate 30-39 Min 70901 E&M of Est. Patient Moderate 30-39 Min 85331 Urnls Dip Stick Auto w/o Microscopy POC 61153 3. 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 States dysuria/urethral pain has completely resolved. Very pleased. Ordered: E&M of Est. Patient Moderate 30-39 Min 21911 E&M of Est. Patient Moderate 30-39 Min 71869 4. Contact dermatitis (L25.9: Unspecified contact dermatitis, [...] E&M of Est. Patient Moderate 30-39 Min 82069 E&M of Est. Patient Moderate 30-39 Min 50984 f/u 1 yr w DEIDRE prior. sooner if vaginal pain does not resolve w use of barrier cream. 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 [facility] Comment on above: Result Comment: Elec tronically [...] YESICA ZAYAS Date: 2022-10-15 09:34 Normal [facility] CREATININEon 06-08-2022 Creatinine [Mass/Vol] 1.22 mg/dL Critically high 0.55-1.02 [facility] Comment on above: Performed By: #### C BRITTANI ####[facility] [id number] [place], [place] [address]IdElana Flannery EGFR-AF MALAYSIAN 51 mL/min/1.73m2 Critically low >=60 [facility] Comment on above: Performed By: #### C BRITTANI ####[facility] [address] [place], [place] [address]GqElana Flannery EGFR-NON AF MALAYSIAN 42 mL/min/1.73m2 Critically low >=60 [facility] Comment on above: Performed By: #### C BRITTANI ####[facility] [address] [place], [place] [address]UoDr. Errol Flannery CTA CHEST WO W CONon [...] ALEXANDER DUMONT Date: 2022-06-08 10:18 Normal [facility] CARDIAC ZECHARIAH 3-6on 2 CK [Catalytic activity/Vol] 35 U/L Normal 26-192 [facility] Comment on above: Performed By: #### L ACT #### [facility] [address] [place], [place] [address] Dr. Errol Flannery CK.MB [Mass/Vol] 1.42 ng/mL Normal <=3.60 [facility] Comment on above: Performed By: #### L ACT #### [facility] [address] [place] [address] [address] Errol Flannery HSTROP 6.4 pg/mL Normal 4.0-51.3 [facility] Comment on above: Result Comment: CUT- OFF POINTS HAVE BEEN ESTABLISHED BASED ON THE FOURTH UNIVERSAL DEFINITIONS OF MYOCARDIAL INFARCTION. THE UPPER REFERENCE LIMIT (URL) OF TROPONIN, DEFINED THE 99TH PERCENTILE OF cTnI DISTRIBUTION IN A REFERENCE POPULATION, HAS BEEN CONFIRMED THE DECISION THRESHOLD FOR CT DIAGNOSIS. Performed By: #### L ACT #### [facility] [address] [place] [address] [address] Errol Flannery CARDIAC ZECHARIAH ADMITon 022 CK [Catalytic activity/Vol] 41 U/L Normal 26-192 [facility] Comment on above: Performed By: #### C MADM, BMP ####[facility] [address] [place] [id number] Flannery CK.MB [Mass/Vol] 1.36 ng/mL Normal <=3.60 [facility] Comment on above: Performed By: #### C MADM, BMP ####[facility] [address] [place] [id number]. Errol Flannery HSTROP 5.8 pg/mL Normal 4.0-51.3 [facility] Comment on above: Result Comment: CUT- OFF POINTS HAVE BEEN ESTABLISHED BASED ON THE FOURTH UNIVERSAL DEFINITIONS OF MYOCARDIAL INFARCTION. THE UPPER REFERENCE LIMIT (URL) OF TROPONIN, DEFINED THE 99TH PERCENTILE OF cTnI DISTRIBUTION IN A REFERENCE POPULATION, HAS BEEN CONFIRMED THE DECISION THRESHOLD FOR CT DIAGNOSIS. Performed By: #### C MADM, BMP ####[facility] [address] [place] [phone] Flannery RICHELLE 65 ng/mL Normal 9-82 [facility] Comment on above: Performed By: #### C MADM, BMP ####[facility] [address] [place], [place] [address]WkElana Flannery CBC AUTO DIFFon 04-29-2022 BASO # 0.0 103/ul Normal 0.0-0.1 [facility] Comment on above: Performed By: #### L ACT #### [facility] [address] [place] [address] [address] Errol Flannery Basophils/100 WBC (Bld) 0.2 % Normal 0.2-2.0 [facility] Comment on above: Performed By: #### L ACT #### [facility] [address] [place] [address] [address] Errol Flannery EO # 0.0 103/ul Normal 0.0-0.7 [facility] Comment on above: Performed By: #### L ACT #### [facility] [address] [place] [address] [address] Errol Flannery Eosinophils/100 WBC (Bld) 0.1 % Critically low 0.9-7.0 [facility] Comment on above: Performed By: #### L ACT #### [facility] [address] [place] [address] Dr. Errol Flannery Erythrocyte distribution width (RBC) [Ratio] 13.9 % Normal 11.0-15.0 [facility] Comment on above: Performed By: #### L ACT #### [facility] [address] [place] [address] Dr. Errol Flannery Hematocrit (Bld) [Volume fraction] 40.9 % Normal 36.0-48.0 [facility] Comment on above: Performed By: #### L ACT #### [facility] [address] [place] [address] Dr. Errol Flannery Hemoglobin (Bld) [Mass/Vol] 13.3 g/dL Normal 12.0-16.0 [facility] Comment on above: Performed By: #### L ACT #### [facility] [address] [place] [address] Dr. Errol Flannery IG # 0.02 10e3/ul Normal 0.00-0.03 [facility] Comment on above: Performed By: #### L ACT #### [facility] [address] [place] [address] [address] Errol Flannery IG % 0.2 % Normal 0.0-0.5 [facility] Comment on above: Performed By: #### L ACT #### [facility] [address] [place] [address] [address] Errol Flannery LYMPH # 0.9 103/ul Critically low 1.2-3.8 [facility] Comment on above: Performed By: #### L ACT #### [facility] [address] [place] [address] [address] Errol Flannery Lymphocytes/100 WBC (Bld) 9.2 % Critically low 20.5-60.0 [facility] Comment on above: Performed By: #### L ACT #### [facility] [address] [place] [address] [address] Errol Flannery MANUAL DIFF REQ NO Normal [facility] Comment on above: Performed By: #### L ACT #### [facility] [address] [place] [address] Dr. Errol Flannery MCH (RBC) [Entitic mass] 30.6 pg Normal 26.7-34.0 [facility] Comment on above: Performed By: #### L ACT #### [facility] [address] [place] [address] Dr. Errol Flannery MCHC (RBC) [Mass/Vol] 32.5 g/dL Normal 29.9-35.2 [facility] Comment on above: Performed By: #### L ACT #### [facility] [address] [place] [address] [address] Errol Flannery MCV (RBC) [Entitic vol] 94.0 fL Normal 81.0-99.0 [facility] Comment on above: Performed By: #### L ACT #### [facility] [address] [place] [address] [address] Errol Flannery MONO # 0.6 103/ul Normal 0.3-0.8 [facility] Comment on above: Performed By: #### L ACT #### [facility] [address] [place] [address] [address] Errol Flannery Monocytes/100 WBC (Bld) 6.8 % Normal 1.7-12.0 [facility] Comment on above: Performed By: #### L ACT #### [facility] [address] [place] [address] [address] Errol Flannery NEUT # 7.9 103/ul Critically high 1.4-6.5 [facility] Comment on above: Performed By: #### L ACT #### [facility] [address] [place] [address] [address] Errol Flannery Neutrophils/100 WBC (Bld) 83.5 % Critically high 43.0-75.0 [facility] Comment on above: Performed By: #### L ACT #### [facility] [address] [place] [address] [address] Errol Flannery Platelet mean volume (Bld) [Entitic vol] 9.5 fL Normal 9.5-13.5 [facility] Comment on above: Performed By: #### L ACT #### [facility] [address] [place] [address] Dr. Errol Flannery PLT 244 103/ul Normal 150-450 [facility] Comment on above: Performed By: #### L ACT #### [facility] [address] [place] [address] Dr. Errol Flannery RBC 4.35 106/ul Normal 4.20-5.40 [facility] Comment on above: Performed By: #### L ACT #### [facility] [address] [place] [address] [address] Errol Flannery WBC 9.4 103/ul Normal 4.0-11.0 [facility] Comment on above: Performed By: #### L ACT #### [facility] [address] [place] [address] Dr. Errol Flannery ER URINE PROFILEon 2 Bilirubin Ql (U) Negative Normal NEGATIVE [facility] Comment on above: Performed By: #### L ACT #### [facility] [address] [place] [address] Dr. Errol Flannery Clarity (U) CLEAR Normal CLEAR [facility] Comment on above: Performed By: #### L ACT #### [facility] [address] [place] [address] Dr. Errol Flannery Color (U) LT. YELLOW Normal YELLOW [facility] Comment on above: Performed By: #### L ACT #### [facility] [address] [place] [address] Dr. Errol JAMES A micrscopic examination will be performed if indicated. Normal [facility] Comment on above: Performed By: #### L ACT #### [facility] [address] [place] [address] Dr. Errol Flannery Glucose Ql (U) Negative Normal NEGATIVE [facility] Comment on above: Performed By: #### L ACT #### [facility] [address] [place] [address] [address] Errol Flannery Hemoglobin Ql (U) Negative Normal NEGATIVE [facility] Comment on above: Performed By: #### L ACT #### [facility] [address] [place] [address] Dr. Errol Flannery Ketones Ql (U) TRACE Abnormal NEGATIVE [facility] Comment on above: Performed By: #### L ACT #### [facility] [address] [place] [address] Dr. Errol Flannery LEUKOCYTES MODERATE Abnormal NEGATIVE [facility] Comment on above: Performed By: #### L ACT #### [facility] [address] [place] [address] Dr. Errol Flannery Nitrite Ql (U) Negative Normal NEGATIVE [facility] Comment on above: Performed By: #### L ACT #### [facility] [address] [place] [address] Dr. Errol Flannery pH (U) 6.5 [pH] Normal 5-9 [facility] Comment on above: Performed By: #### L ACT #### [facility] [address] [place] [address] Dr. Errol Flannery SPEC GRAVITY 1.010 Normal 1.005-<=1.025 [facility] Comment on above: Performed By: #### L ACT #### [facility] [address] [place] [address] Dr. Errol Flannery UA PROTEIN Negative Normal NEGATIVE/ TRACE [facility] Comment on above: Performed By: #### L ACT #### [facility] [address] [place] [address] [address] Errol Flannery UR MICRO IND INDICATED Normal [facility] Comment on above: Performed By: #### L ACT #### [facility] [address] [place] [address] [address] Errol Flannery Urobilinogen Qn (U) 0.2 {Jordyn'U}/dL Normal 0.2 - 1. 0 [facility] Comment on above: Performed By: #### L ACT #### [facility] [address] [place] [address] [address] Errol Flannery LACTATE/LACTIC ACIDon 2021 Lactate [Moles/Vol] 0.8 mmol/L Normal 0.4-1.9 [facility] Comment on above: Performed By: #### L ACT #### [facility] [address] [place] [address] [address] Errol Flannery Lactate [Moles/Vol] 0.9 mmol/L Normal 0.4-1.9 [facility] Comment on above: Performed By: #### L ACT ####[facility] [address] [place] [address]Dr. Errol Flannery PROF CHEM 8 (BAS METB)on Anion gap [Moles/Vol] 11.5 mmol/L Normal [facility] Comment on above: Performed By: #### C ALICIA, BMP ####[facility] [address] [place] [address]Dr. Errol Flannery Calcium [Mass/Vol] 8.9 mg/dL Normal 8.5-10.1 [facility] Comment on above: Performed By: #### C ALICIA, BMP ####[facility] [address] [place] [address]Dr. Errol Flannery Chloride [Moles/Vol] 104 mmol/L Normal 98-107 [facility] Comment on above: Performed By: #### C ALICIA, BMP ####[facility] [address] [place] [address]Dr. Errol Flannery CO2 [Moles/Vol] 28.3 mmol/L Normal 21.0-32.0 [facility] Comment on above: Performed By: #### Audra VARGAS, BMP ####[facility] [address] [place] [address]Dr. Errol Flannery Creatinine [Mass/Vol] 1.04 mg/dL Critically high 0.55-1.02 [facility] Comment on above: Performed By: #### Audra VARGAS, BMP ####[facility] [address] [place] [address]Dr. Errol Flannery EGFR-AF MALAYSIAN >60 Normal >=60 [facility] Comment on above: Performed By: #### Audra VARGAS, BMP ####[facility] [address] [place] [address]Dr. Errol Flannery EGFR-NON AF MALAYSIAN 50 mL/min/1.73m2 Critically low >=60 [facility] Comment on above: Performed By: #### Audra VARGAS, BMP ####[facility] [address] [place] [address]Dr. Errol Flannery Glucose [Mass/Vol] 131 mg/dL Critically high 74-106 [facility] Comment on above: Performed By: #### Audra VARGAS, BMP ####[facility] [address] [place] [address]Dr. Errol Flannery Potassium [Moles/Vol] 3.8 mmol/L Normal 3.5-5.1 [facility] Comment on above: Performed By: #### C ALICIA, BMP ####[facility] [address] [place] [address]Dr. Errol Flannery Sodium [Moles/Vol] 140 mmol/L Normal 136-145 [facility] Comment on above: Performed By: #### Audra VARGAS, BMP ####[facility] [address] [place] [address]Dr. Errol Flannery Urea nitrogen [Mass/Vol] 16.0 mg/dL Normal 7.0-18.0 [facility] Comment on above: Performed By: #### Audra VARGAS, BMP ####[facility] [address] [place] [id number]. Errol Flannery Urea nitrogen/Creatinine [Mass ratio] 15.4 mg/mg Normal [facility] Comment on above: Performed By: #### C KRISTIM, BMP ####[facility] [address] [place] [phone]. Errol Flannery URINE MICROSCOPIC ONLYon BACTERIA TRACE Abnormal NONE SEEN [facility] Comment on above: Performed By: #### L ACT #### [facility] [address] [place] [address] [address] Errol Flannery Bacteria identified Cx Nom (U) NOT INDICATED Normal [facility] Comment on above: Performed By: #### L ACT #### [facility] [address] [place] [address] Dr. Errol Flannery CAST NONE SEEN Normal NONE SEEN [facility] Comment on above: Performed By: #### L ACT #### [facility] [address] [place] [address] [address] Errol Flannery Crystals LM Nom (Urine sed) NONE SEEN Normal NONE SEEN [facility] Comment on above: Performed By: #### L ACT #### [facility] [address] [place] [address] [address] Errol Flannery Epithelial cells LM Ql (Urine sed) FEW Abnormal NONE SEEN /RARE [facility] Comment on above: Performed By: #### L ACT #### [facility] [address] [place] [address] [address] Errol Flannery MUCOUS NONE SEEN Normal NONE SEEN [facility] Comment on above: Performed By: #### L ACT #### [facility] [address] [place] [address] [address] Errol Flannery RBC 0-2 Normal 0-2 [facility] Comment on above: Performed By: #### L ACT #### [facility] [address] [place] [address] [address] Errol Flannery WBC 2-5 Abnormal NONE SEEN [facility] Comment on above: Performed By: #### L ACT #### [facility] [address] [place] [address] [address] Errol Flannery XR CHEST 1 Von [...] GENO LAU Date: 2022-04-28 23:01 Normal [facility] CBC AUTO DIFFon 04-12-2022 BASO # 0.0 103/ul Normal 0.0-0.1 [facility] Comment on above: Performed By: #### C BC ####[facility] [address] [place] [address]DrElana Flannery Basophils/100 WBC (Bld) 0.5 % Normal 0.2-2.0 [facility] Comment on above: Performed By: #### C BC ####[facility] [address] [place] [address]DrElana Flannery EO # 0.1 103/ul Normal 0.0-0.7 [facility] Comment on above: Performed By: #### C BC ####[facility] [address] [place] [address]DrElana Flannery Eosinophils/100 WBC (Bld) 1.9 % Normal 0.9-7.0 [facility] Comment on above: Performed By: #### C BC ####[facility] [address] [place], [place] [address]DrElana Flannery Erythrocyte distribution width (RBC) [Ratio] 14.1 % Normal 11.0-15.0 [facility] Comment on above: Performed By: #### C BC ####[facility] [address] [place], [place] [address]DrElana Flannery Hematocrit (Bld) [Volume fraction] 35.1 % Critically low 36.0-48.0 [facility] Comment on above: Performed By: #### C BC ####[facility] [address] [place] [id number]. Errol Flannery Hemoglobin (Bld) [Mass/Vol] 11.5 g/dL Critically low 12.0-16.0 [facility] Comment on above: Performed By: #### C BC ####[facility] [address] [place] [phone]. Errol Flannery IG # 0.02 10e3/ul Normal 0.00-0.03 [facility] Comment on above: Performed By: #### C BC ####[facility] [address] [place], [place] [address]Dr. Errol Flannery IG % 0.3 % Normal 0.0-0.5 [facility] Comment on above: Performed By: #### C BC ####[facility] [address] [place], [place] [address]Dr. Errol Flannery LYMPH # 1.4 103/ul Normal 1.2-3.8 [facility] Comment on above: Performed By: #### C BC ####[facility] [address] [place], [place] [address]Dr. Errol Flannery Lymphocytes/100 WBC (Bld) 24.2 % Normal 20.5-60.0 [facility] Comment on above: Performed By: #### C BC ####[facility] [address] [place], [place] [address]Dr. Errol Flannery MANUAL DIFF REQ NO Normal [facility] Comment on above: Performed By: #### C BC ####[facility] [address] [place], [place] [address]Dr. Errol Flannery MCH (RBC) [Entitic mass] 30.6 pg Normal 26.7-34.0 [facility] Comment on above: Performed By: #### C BC ####[facility] [address] [place], [place] [address]Dr. Errol Flannery MCHC (RBC) [Mass/Vol] 32.8 g/dL Normal 29.9-35.2 [facility] Comment on above: Performed By: #### C BC ####[facility] [address] [place] [phone]. Errol Flannery MCV (RBC) [Entitic vol] 93.4 fL Normal 81.0-99.0 [facility] Comment on above: Performed By: #### C BC ####[facility] [address] [place] [phone]. Errol Flannery MONO # 0.6 103/ul Normal 0.3-0.8 [facility] Comment on above: Performed By: #### C BC ####[facility] [address] [place] [phone]. Errol Flannery Monocytes/100 WBC (Bld) 10.0 % Normal 1.7-12.0 [facility] Comment on above: Performed By: #### C BC ####[facility] [address] [place] [phone]. Errol Flannery NEUT # 3.7 103/ul Normal 1.4-6.5 [facility] Comment on above: Performed By: #### C BC ####[facility] [address] [place] [phone]. Errol Flannery Neutrophils/100 WBC (Bld) 63.1 % Normal 43.0-75.0 [facility] Comment on above: Performed By: #### C BC ####[facility] [address] [place] [phone]. Errol Flannery Platelet mean volume (Bld) [Entitic vol] 9.8 fL Normal 9.5-13.5 [facility] Comment on above: Performed By: #### C BC ####[facility] [address] [place] [phone]. Errol Flannery PLT 237 103/ul Normal 150-450 [facility] Comment on above: Performed By: #### C BC ####[facility] [address] [place] [phone]. Errol Flannery RBC 3.76 106/ul Critically low 4.20-5.40 [facility] Comment on above: Performed By: #### C BC ####[facility] [address] [place] [phone]. Errol Flannery WBC 5.8 103/ul Normal 4.0-11.0 [facility] Comment on above: Performed By: #### C BC ####[facility] [address] [place] [address]Dr. Errol Flannery PROF 14(COMP METB)on 022 Albumin [Mass/Vol] 2.2 g/dL Critically low 3.4-5.0 [facility] Comment on above: Performed By: #### L ACT #### [facility] [address] [place] [address] [address] Errol Flannery Albumin/Globulin [Mass ratio] 0.7 {ratio} Normal [facility] Comment on above: Performed By: #### L ACT #### [facility] [address] [place] [address] Dr. Errol Flannery ALP [Catalytic activity/Vol] 65 U/L Normal 46-116 [facility] Comment on above: Performed By: #### L ACT #### [facility] [address] [place] [address] [address] Errol Flannery ALT [Catalytic activity/Vol] 32 U/L Normal 14-59 [facility] Comment on above: Performed By: #### L ACT #### [facility] [address] [place] [address] [address] Errol Flannery Anion gap [Moles/Vol] 8.6 mmol/L Normal [facility] Comment on above: Performed By: #### L ACT #### [facility] [address] [place] [address] [address] Errol Flannery AST [Catalytic activity/Vol] 21 U/L Normal 15-37 [facility] Comment on above: Performed By: #### L ACT #### [facility] [address] [place] [address] [address] Errol Flannery Bilirubin [Mass/Vol] 0.2 mg/dL Normal 0.2-1.0 [facility] Comment on above: Performed By: #### L ACT #### [facility] [address] [place] [address] [address] Errol Flannery Calcium [Mass/Vol] 8.5 mg/dL Normal 8.5-10.1 [facility] Comment on above: Performed By: #### L ACT #### [facility] [address] [place] [address] [address] Errol Flannery Chloride [Moles/Vol] 109 mmol/L Critically high 98-107 [facility] Comment on above: Performed By: #### L ACT #### [facility] [address] [place] [address] [address] Errol Flannery CO2 [Moles/Vol] 29.0 mmol/L Normal 21.0-32.0 [facility] Comment on above: Performed By: #### L ACT #### [facility] [address] [place] [address] Dr. Errol Flannery Creatinine [Mass/Vol] 1.01 mg/dL Normal 0.55-1.02 [facility] Comment on above: Performed By: #### L ACT #### [facility] [address] [place] [address] [address] Errol Flannery EGFR-AF MALAYSIAN >60 Normal >=60 [facility] Comment on above: Performed By: #### L ACT #### [facility] [address] [place] [address] [address] Errol Flannery EGFR-NON AF MALAYSIAN 52 mL/min/1.73m2 Critically low >=60 [facility] Comment on above: Performed By: #### L ACT #### [facility] [address] [place] [address] [address] Errol Flannery Globulin (S) [Mass/Vol] 3.1 g/dL Normal [facility] Comment on above: Performed By: #### L ACT #### [facility] [address] [place] [address] [address] Errol Flannery Glucose [Mass/Vol] 98 mg/dL Normal 74-106 [facility] Comment on above: Performed By: #### L ACT #### [facility] [address] [place] [address] [address] Errol Flannery Potassium [Moles/Vol] 4.6 mmol/L Normal 3.5-5.1 [facility] Comment on above: Performed By: #### L ACT #### [facility] [address] [place] [address] [address] Errol Flannery Protein [Mass/Vol] 5.3 g/dL Critically low 6.4-8.2 [facility] Comment on above: Performed By: #### L ACT #### [facility] [address] [place] [address] [address] Errol Flannery Sodium [Moles/Vol] 142 mmol/L Normal 136-145 [facility] Comment on above: Performed By: #### L ACT #### [facility] [address] [place] [address] Dr. Errol Flannery Urea nitrogen [Mass/Vol] 16.0 mg/dL Normal 7.0-18.0 [facility] Comment on above: Performed By: #### L ACT #### [facility] [address] [place] [address] Dr. Errol Flannery Urea nitrogen/Creatinine [Mass ratio] 15.8 mg/mg Normal [facility] Comment on above: Performed By: #### L ACT #### [facility] [address] [place] [address] Dr. Errol Flannery CBC AUTO DIFFon 04-11-2022 BASO # 0.0 103/ul Normal 0.0-0.1 [facility] Comment on above: Performed By: #### C BC ####[facility] [address] [place] [address]Dr. Errol Flannery Basophils/100 WBC (Bld) 0.6 % Normal 0.2-2.0 [facility] Comment on above: Performed By: #### C BC ####[facility] [address] [place] [address]Dr. Errol Flannery EO # 0.1 103/ul Normal 0.0-0.7 [facility] Comment on above: Performed By: #### C BC ####[facility] [address] [place] [address]Dr. Errol Flannery Eosinophils/100 WBC (Bld) 1.8 % Normal 0.9-7.0 [facility] Comment on above: Performed By: #### C BC ####[facility] [address] [place], [place] [address]Dr. Errol Flnanery Erythrocyte distribution width (RBC) [Ratio] 14.0 % Normal 11.0-15.0 [facility] Comment on above: Performed By: #### C BC ####[facility] [address] [place], [place] [address]Dr. Errol Flannery Hematocrit (Bld) [Volume fraction] 34.5 % Critically low 36.0-48.0 [facility] Comment on above: Performed By: #### C BC ####[facility] [address] [place], [place] [address]Dr. Errol Flannery Hemoglobin (Bld) [Mass/Vol] 11.1 g/dL Critically low 12.0-16.0 [facility] Comment on above: Performed By: #### C BC ####[facility] [address] [place], [place] [address]Dr. Pammissy Prudencio IG # 0.02 10e3/ul Normal 0.00-0.03 [facility] Comment on above: Performed By: #### C BC ####[facility] [address] [place], [place] [address]Dr. Errol Flannery IG % 0.3 % Normal 0.0-0.5 [facility] Comment on above: Performed By: #### C BC ####[facility] [address] [place], [place] [address]Dr. Errol Flannery LYMPH # 1.6 103/ul Normal 1.2-3.8 [facility] Comment on above: Performed By: #### C BC ####[facility] [address]ds[address] [place], [place] [address]Dr. Errol Flannery Lymphocytes/100 WBC (Bld) 21.9 % Normal 20.5-60.0 [facility] Comment on above: Performed By: #### C BC ####[facility] Inzpmognys[address] [place], [place] [address]DrElana Flannery MANUAL DIFF REQ NO Normal [facility] Comment on above: Performed By: #### C BC ####[facility] [address] [place] [address]Dr. Errol Flannery MCH (RBC) [Entitic mass] 30.1 pg Normal 26.7-34.0 [facility] Comment on above: Performed By: #### C BC ####[facility] [address] [place] [address]Dr. Errol Flannery MCHC (RBC) [Mass/Vol] 32.2 g/dL Normal 29.9-35.2 [facility] Comment on above: Performed By: #### C BC ####[facility] [address] [place], [place] [address]DrElana Flannery MCV (RBC) [Entitic vol] 93.5 fL Normal 81.0-99.0 [facility] Comment on above: Performed By: #### C BC ####[facility] [address] [place], [place] [address]DrElana Flannery MONO # 0.7 103/ul Normal 0.3-0.8 [facility] Comment on above: Performed By: #### C BC ####[facility] [address]mybafqz[address] [place], [place] [address]DrElana Flannery Monocytes/100 WBC (Bld) 9.4 % Normal 1.7-12.0 [facility] Comment on above: Performed By: #### C BC ####[facility] [address]frgsupydf[address] [place], [place] [address]DrElana Flannery NEUT # 4.8 103/ul Normal 1.4-6.5 [facility] Comment on above: Performed By: #### C BC ####[facility] Rshidbhici[address] [place], [place] [address]DrElana Flannery Neutrophils/100 WBC (Bld) 66.0 % Normal 43.0-75.0 [facility] Comment on above: Performed By: #### C BC ####[facility] Y[address]tkgpkqi[address] [place], [place] [address]DrElana Flannery Platelet mean volume (Bld) [Entitic vol] 9.2 fL Critically low 9.5-13.5 [facility] Comment on above: Performed By: #### C BC ####[facility] [address] [place] [address]Dr. Errol Flannery PLT 240 103/ul Normal 150-450 [facility] Comment on above: Performed By: #### C BC ####[facility] [address]fg[address]lyzg[address] [place], [place] [address]Dr. Errol Flannery RBC 3.69 106/ul Critically low 4.20-5.40 [facility] Comment on above: Performed By: #### C BC ####[facility] Tocjjbmiqd[address] [place], [place] [address]Dr. Errol Flannery WBC 7.3 103/ul Normal 4.0-11.0 [facility] Comment on above: Performed By: #### C BC ####[facility] Utmlxlumpb[address] [place], [place] [address]Dr. Errol Flannery GI PANEL (PCR)on 04-11-2022 Adenovirus F 40/41 Not detected Normal NOT DETECTED [facility] Comment on above: Performed By: #### G IPANEL ####[facility] Ihtqstohwm[address] [place], [place] [address]Dr. Errol Flannery Astrovirus Not detected Normal NOT DETECTED [facility] Comment on above: Performed By: #### G IPANEL ####[facility] Lvpdhsgrcm[address] [place], [place] [address]Dr. Errol Flannery C. Diff toxin A/B Detected Critically abnormal NOT DETECTED [facility] Comment on above: Performed By: #### G IPANEL ####[facility] Tdfxjzraqj[address] [place], [place] [address]Dr. Errol Flannery Campylobacter Not detected Normal NOT DETECTED [facility] Comment on above: Performed By: #### G IPANEL ####[facility] Ahorvfcgqm[address] [place], [place] [address]Dr. Errol Flannery Cryptosporidium Not detected Normal NOT DETECTED [facility] Comment on above: Performed By: #### G IPANEL ####[facility] [address] [place] [id number]. Errol Flannery Cyclos. Cayetanensis Not detected Normal NOT DETECTED [facility] Comment on above: Performed By: #### G IPANEL ####[facility] Hiucvruosa[address] [place], [place] [address]Dr. Errol Flannery E. Coli O157 Not Applicable Normal Not Applicable [facility] Comment on above: Performed By: #### G IPANEL ####[facility] Dbayezmdxz[address] [place], [place] [address]Dr. Errol Flannery E. histolytica Not detected Normal NOT DETECTED [facility] Comment on above: Performed By: #### G IPANEL ####[facility] Lpszrzctur7[address] [place], [place] [address]Dr. Errol Flannery EAEC Not detected Normal NOT DETECTED [facility] Comment on above: Performed By: #### G IPANEL ####[facility] Wnyczhfpvr[address] [place], [place] [address]Dr. Errol Flannery EIEC Not detected Normal NOT DETECTED [facility] Comment on above: Performed By: #### G IPANEL ####[facility] Trurnqirjs[address] [place], [place] [address]Dr. Errol Flannery EPEC Not detected Normal NOT DETECTED [facility] Comment on above: Performed By: #### G IPANEL ####[facility] Daebcedezh[address] [place], [place] [address]Dr. Errol Flannery ETEC Not detected Normal NOT DETECTED [facility] Comment on above: Performed By: #### G IPANEL ####[facility] Nxgpkyvygb[address] [place], [place] [address]Dr. Errol Flannery G. Lamblia Not detected Normal NOT DETECTED [facility] Comment on above: Performed By: #### G IPANEL ####[facility] Bcaaehzuxj[address] [place], [place] [address]Dr. Errol Flannery GIPANEL CONTROLS PASSED Normal [facility] Comment on above: Performed By: #### G IPANEL ####[facility] Ukwqtvdgvb4[address] [place], [place] [address]Dr. Errol JAY JUNAID HEADER GI PANEL BACTERIA Normal T [facility] Comment on above: Performed By: #### G IPANEL ####[facility] Ufxlvtnvmq[address] [place], [place] [address]Dr. Errol Prudencio JAYHD ECOLI GI PANEL DIARRHEAGENIC E.COLI / SHIGELLA Normal [facility] Comment on above: Performed By: #### G IPANEL ####[facility] Znmygpriim[address] [place], [place] [address]Dr. Pammissy Prudencio GIPNLHD INFO SEE BELOW Normal [facility] Comment on above: Result Comment: EAEC - Enteroaggregative E. Coli EPEC- Enteropathogenic E. Coli ETEC- Enterotoxigenic E. Coli lt/st STEC- Shigella-like toxin-producing E. Coli stx1/stx2 EIEC- Shigella/Enteroinvasive E. Coli Performed By: #### G IPANEL ####[facility] C[address]vjblpuwm[address] [place], [place] [address]Dr. Errol JAYHD PARASITES GI PANEL PARASITES Normal [facility] Comment on above: Performed By: #### G IPANEL ####[facility] Swubhcgqbp56[address] [place], [place] [address]Dr. Pammissy Prudencio GIPNLHD VIRUS GI PANEL VIRUSES Normal [facility] Comment on above: Performed By: #### G IPANEL ####[facility] Pzmcqyzxlb[address] [place], [place] [address]Dr. Errol Flannery Norovirus GI/GII Not detected Normal NOT DETECTED [facility] Comment on above: Performed By: #### G IPANEL ####[facility] Ylpprixfbn7[address] [place], [place] [address]Dr. Errol Flannery P. Shigelloides Not detected Normal NOT DETECTED [facility] Comment on above: Performed By: #### G IPANEL ####[facility] Kkxlejydob[address] [place], [place] [address]Dr. Errol Flannery Rotavirus A Not detected Normal NOT DETECTED [facility] Comment on above: Performed By: #### G IPANEL ####[facility] Snjmpfnutx4[address] [place], [place] [address]Dr. Errol Flannery Salmonella Not detected Normal NOT DETECTED [facility] Comment on above: Performed By: #### G IPANEL ####[facility] [address] [place] [address]Dr. Errol Flannery Sapovirus Not detected Normal NOT DETECTED [facility] Comment on above: Performed By: #### G IPANEL ####[facility] [address]rl[address] [place] [address]Dr. Errol Flannery STEC Not detected Normal NOT DETECTED [facility] Comment on above: Performed By: #### G IPANEL ####[facility] [address] [place] [address]Dr. Errol Flannery Vibrio Not detected Normal NOT DETECTED [facility] Comment on above: Performed By: #### G IPANEL ####[facility] [address]uzj[address] [place] [address]Dr. Errol Flannery Vibrio Cholera Not detected Normal NOT DETECTED [facility] Comment on above: Performed By: #### G IPANEL ####[facility] [address] [place] [address]Dr. Errol Flannery Y. Enterocolitica Not detected Normal NOT DETECTED [facility] Comment on above: Performed By: #### G IPANEL ####[facility] [address] [place] [address]Dr. Errol Flannery OCC BLD IMMUNOASSAYon 2021 OCCULT BLOOD Positive Abnormal NEGATIVE [facility] Comment on above: Performed By: #### O EDISON ####[facility] [address] [place] [address]Dr. Errol Flannery PROF 14(COMP METB)on 022 Albumin [Mass/Vol] 2.1 g/dL Critically low 3.4-5.0 [facility] Comment on above: Performed By: #### C BC #### [facility] [address] [place] [address] [address] Errol Flannery Albumin/Globulin [Mass ratio] 0.7 {ratio} Normal [facility] Comment on above: Performed By: #### C BC #### [facility] [address] [place] [address] [address] Errol Flannery ALP [Catalytic activity/Vol] 60 U/L Normal 46-116 [facility] Comment on above: Performed By: #### C BC #### [facility] [address] [place] [address] [address] Errol Flannery ALT [Catalytic activity/Vol] 30 U/L Normal 14-59 [facility] Comment on above: Performed By: #### C BC #### [facility] [address] [place] [address] Dr. Errol Flannery Anion gap [Moles/Vol] 8.9 mmol/L Normal [facility] Comment on above: Performed By: #### C BC #### [facility] [address] [place] [address] Dr. Errol Flannery AST [Catalytic activity/Vol] 20 U/L Normal 15-37 [facility] Comment on above: Performed By: #### C BC #### [facility] [address] [place] [address] Dr. Errol Flannery Bilirubin [Mass/Vol] 0.3 mg/dL Normal 0.2-1.0 [facility] Comment on above: Performed By: #### C BC #### [facility] [address] [place] [address] Dr. Errol Flannery Calcium [Mass/Vol] 8.2 mg/dL Critically low 8.5-10.1 Th [facility] Comment on above: Performed By: #### C BC #### [facility] [address] [place] [address] Dr. Errol Flannery Chloride [Moles/Vol] 109 mmol/L Critically high 98-107 [facility] Comment on above: Performed By: #### C BC #### [facility] [address] [place] [address] Dr. Errol Flannery CO2 [Moles/Vol] 27.7 mmol/L Normal 21.0-32.0 [facility] Comment on above: Performed By: #### C BC #### [facility] [address] [place] [address] Dr. Errol Flannery Creatinine [Mass/Vol] 1.03 mg/dL Critically high 0.55-1.02 [facility] Comment on above: Performed By: #### C BC #### [facility] [address] [place] [address] Dr. Errol Flannery EGFR-AF MALAYSIAN >60 Normal >=60 [facility] Comment on above: Performed By: #### C BC #### [facility] [address] [place] [address] [address] Errol Flannery EGFR-NON AF MALAYSIAN 51 mL/min/1.73m2 Critically low >=60 [facility] Comment on above: Performed By: #### C BC #### [facility] [address] [place] [address] Dr. Errol Flanneyr Globulin (S) [Mass/Vol] 3.0 g/dL Normal [facility] Comment on above: Performed By: #### C BC #### [facility] [address] [place] [address] Dr. Errol Flannery Glucose [Mass/Vol] 91 mg/dL Normal 74-106 [facility] Comment on above: Performed By: #### C BC #### [facility] [address] [place] [address] Dr. Errol Flannery Potassium [Moles/Vol] 3.6 mmol/L Normal 3.5-5.1 [facility] Comment on above: Performed By: #### C BC #### [facility] [address] [place] [address] Dr. Errol Flannery Protein [Mass/Vol] 5.1 g/dL Critically low 6.4-8.2 Th [facility] Comment on above: Performed By: #### C BC #### [facility] [address] [place] [address] Dr. Errol Flannery Sodium [Moles/Vol] 142 mmol/L Normal 136-145 [facility] Comment on above: Performed By: #### C BC #### [facility] [address] [place] [address] Dr. Errol Flannery Urea nitrogen [Mass/Vol] 11.0 mg/dL Normal 7.0-18.0 [facility] Comment on above: Performed By: #### C BC #### [facility] [address] [place] [address] Dr. Errol Flannery Urea nitrogen/Creatinine [Mass ratio] 10.7 mg/mg Normal [facility] Comment on above: Performed By: #### C BC #### [facility] [address] [place] [address] Dr. Errol Flannery CBC AUTO DIFFon 04-10-2022 BASO # 0.0 103/ul Normal 0.0-0.1 [facility] Comment on above: Performed By: #### C BC #### [facility] [address] [place] [address] Dr. Errol Flannery Basophils/100 WBC (Bld) 0.4 % Normal 0.2-2.0 [facility] Comment on above: Performed By: #### C BC #### [facility] [address] [place] [address] Dr. Errol Flannery EO # 0.1 103/ul Normal 0.0-0.7 [facility] Comment on above: Performed By: #### C BC #### [facility] [address] [place] [address] Dr. Errol Flannery Eosinophils/100 WBC (Bld) 2.1 % Normal 0.9-7.0 [facility] Comment on above: Performed By: #### C BC #### [facility] [address] [place] [address] Dr. Errol Flannery Erythrocyte distribution width (RBC) [Ratio] 13.8 % Normal 11.0-15.0 [facility] Comment on above: Performed By: #### C BC #### [facility] [address] [place] [address] Dr. Errol Flannery Hematocrit (Bld) [Volume fraction] 35.9 % Critically low 36.0-48.0 [facility] Comment on above: Performed By: #### C BC #### [facility] [address] [place] [address] Dr. Errol Flannery Hemoglobin (Bld) [Mass/Vol] 11.6 g/dL Critically low 12.0-16.0 [facility] Comment on above: Performed By: #### C BC #### [facility] [address] [place] [address] Dr. Errol Flannery IG # 0.03 10e3/ul Normal 0.00-0.03 [facility] Comment on above: Performed By: #### C BC #### [facility] [address] [place] [address] Dr. Errol Flannery IG % 0.5 % Normal 0.0-0.5 [facility] Comment on above: Performed By: #### C BC #### [facility] [address] [place] [address] Dr. Errol Flannery LYMPH # 1.2 103/ul Normal 1.2-3.8 [facility] Comment on above: Performed By: #### C BC #### [facility] [address] [place] [address] Dr. Errol Flannery Lymphocytes/100 WBC (Bld) 21.7 % Normal 20.5-60.0 [facility] Comment on above: Performed By: #### C BC #### [facility] [address] [place] [address] Dr. Errol Flannery MANUAL DIFF REQ NO Normal [facility] Comment on above: Performed By: #### C BC #### [facility] [address] [place] [address] Dr. Errol Flannery MCH (RBC) [Entitic mass] 30.0 pg Normal 26.7-34.0 [facility] Comment on above: Performed By: #### C BC #### [facility] [address] [place] [address] Dr. Errol Flannery MCHC (RBC) [Mass/Vol] 32.3 g/dL Normal 29.9-35.2 [facility] Comment on above: Performed By: #### C BC #### [facility] [address] [place] [address] Dr. Errol Flannery MCV (RBC) [Entitic vol] 92.8 fL Normal 81.0-99.0 [facility] Comment on above: Performed By: #### C BC #### [facility] [address] [place] [address] Dr. Errol Flannery MONO # 0.6 103/ul Normal 0.3-0.8 [facility] Comment on above: Performed By: #### C BC #### [facility] [address] [address] [address] Errol Flannery Monocytes/100 WBC (Bld) 10.5 % Normal 1.7-12.0 [facility] Comment on above: Performed By: #### C BC #### [facility] [address] [place] [address] Dr. Errol Flannery NEUT # 3.6 103/ul Normal 1.4-6.5 [facility] Comment on above: Performed By: #### C BC #### [facility] [address] [place] [address] Dr. Errol Flannery Neutrophils/100 WBC (Bld) 64.8 % Normal 43.0-75.0 [facility] Comment on above: Performed By: #### C BC #### [facility] [address] [place] [address] Dr. Errol Flannery Platelet mean volume (Bld) [Entitic vol] 9.0 fL Critically low 9.5-13.5 [facility] Comment on above: Performed By: #### C BC #### [facility] [address] [place] [address] Dr. Errol Flannery PLT 250 103/ul Normal 150-450 [facility] Comment on above: Performed By: #### C BC #### [facility] [address] [place] [address] Dr. Errol Flannery RBC 3.87 106/ul Critically low 4.20-5.40 [facility] Comment on above: Performed By: #### C BC #### [facility] [address] [place] [address] Dr. Errol Flannery WBC 5.6 103/ul Normal 4.0-11.0 [facility] Comment on above: Performed By: #### C BC #### [facility] [address] [address] [address] Errol Flannery PROF 14(COMP METB)on 022 Albumin [Mass/Vol] 2.2 g/dL Critically low 3.4-5.0 [facility] Comment on above: Performed By: #### L ACT #### [facility] [address] [place] [address] Dr. Errol Flannery Albumin/Globulin [Mass ratio] 0.8 {ratio} Normal [facility] Comment on above: Performed By: #### L ACT #### [facility] [address] [place] [address] Dr. Errol Flannery ALP [Catalytic activity/Vol] 67 U/L Normal 46-116 [facility] Comment on above: Performed By: #### L ACT #### [facility] [address] [place] [address] Dr. Errol Flannery ALT [Catalytic activity/Vol] 27 U/L Normal 14-59 [facility] Comment on above: Performed By: #### L ACT #### [facility] [address] [place] [address] Dr. Errol Flannery Anion gap [Moles/Vol] 8.9 mmol/L Normal [facility] Comment on above: Performed By: #### L ACT #### [facility] [address] [place] [address] Dr. Errol Flannery AST [Catalytic activity/Vol] 18 U/L Normal 15-37 [facility] Comment on above: Performed By: #### L ACT #### [facility] [address] [place] [address] Dr. Errol Flannery Bilirubin [Mass/Vol] 0.3 mg/dL Normal 0.2-1.0 [facility] Comment on above: Performed By: #### L ACT #### [facility] [address] [place] [address] Dr. Errol Flannery Calcium [Mass/Vol] 8.3 mg/dL Critically low 8.5-10.1 [facility] Comment on above: Performed By: #### L ACT #### [facility] [address] [address] [address] Errol Flannery Chloride [Moles/Vol] 110 mmol/L Critically high 98-107 [facility] Comment on above: Performed By: #### L ACT #### [facility] [address] [address] [address] Errol Flannery CO2 [Moles/Vol] 26.6 mmol/L Normal 21.0-32.0 [facility] Comment on above: Performed By: #### L ACT #### [facility] [address] [address] [address] Errol Flannery Creatinine [Mass/Vol] 0.95 mg/dL Normal 0.55-1.02 [facility] Comment on above: Performed By: #### L ACT #### [facility] [address] [address] [address] Errol Flannery EGFR-AF MALAYSIAN >60 Normal >=60 [facility] Comment on above: Performed By: #### L ACT #### [facility] [address] [address] [address] Errol Flannery EGFR-NON AF MALAYSIAN 56 mL/min/1.73m2 Critically low >=60 [facility] Comment on above: Performed By: #### L ACT #### [facility] [address] [address] [address] Errol Flannery Globulin (S) [Mass/Vol] 2.9 g/dL Normal [facility] Comment on above: Performed By: #### L ACT #### [facility] [address] [address] [address] Errol Flannery Glucose [Mass/Vol] 93 mg/dL Normal 74-106 [facility] Comment on above: Performed By: #### L ACT #### [facility] [address] [address] [address] Errol Flannery Potassium [Moles/Vol] 3.5 mmol/L Normal 3.5-5.1 [facility] Comment on above: Performed By: #### L ACT #### [facility] [address] [address] [address] Errol Flannery Protein [Mass/Vol] 5.1 g/dL Critically low 6.4-8.2 [facility] Comment on above: Performed By: #### L ACT #### [facility] [address] [place] [address] Dr. Errol Flannery Sodium [Moles/Vol] 142 mmol/L Normal 136-145 [facility] Comment on above: Performed By: #### L ACT #### [facility] [address] [place] [address] Dr. Errol Flannery Urea nitrogen [Mass/Vol] 10.0 mg/dL Normal 7.0-18.0 [facility] Comment on above: Performed By: #### L ACT #### [facility] [address] [place] [address] Dr. Errol Flannery Urea nitrogen/Creatinine [Mass ratio] 10.5 mg/mg Normal [facility] Comment on above: Performed By: #### L ACT #### [facility] [address] [place] [address] Dr. Errol Flannery CBC AUTO DIFFon 04-09-2022 BASO # 0.0 103/ul Normal 0.0-0.1 [facility] Comment on above: Performed By: #### C BC #### [facility] [address] [place] [address] Dr. Errol Flannery Basophils/100 WBC (Bld) 0.3 % Normal 0.2-2.0 [facility] Comment on above: Performed By: #### C BC #### [facility] [address] [place] [address] Dr. Errol Flannery EO # 0.1 103/ul Normal 0.0-0.7 [facility] Comment on above: Performed By: #### C BC #### [facility] [address] [place] [address] Dr. Errol Flannery Eosinophils/100 WBC (Bld) 1.9 % Normal 0.9-7.0 [facility] Comment on above: Performed By: #### C BC #### [facility] [address] [place] [address] Dr. Errol Flannery Erythrocyte distribution width (RBC) [Ratio] 13.5 % Normal 11.0-15.0 [facility] Comment on above: Performed By: #### C BC #### [facility] [address] [place] [address] Dr. Errol Flannery Hematocrit (Bld) [Volume fraction] 34.8 % Critically low 36.0-48.0 [facility] Comment on above: Performed By: #### C BC #### [facility] [address] [place] [address] Dr. Errol Flannery Hemoglobin (Bld) [Mass/Vol] 11.3 g/dL Critically low 12.0-16.0 [facility] Comment on above: Performed By: #### C BC #### [facility] [address] [place] [address] Dr. Errol Flannery IG # 0.02 10e3/ul Normal 0.00-0.03 [facility] Comment on above: Performed By: #### C BC #### [facility] [address] [place] [address] Dr. Errol Flannery IG % 0.3 % Normal 0.0-0.5 [facility] Comment on above: Performed By: #### C BC #### [facility] [address] [place] [address] Dr. Errol Flannery LYMPH # 1.4 103/ul Normal 1.2-3.8 [facility] Comment on above: Performed By: #### C BC #### [facility] [address] [place] [address] Dr. Errol Flannery Lymphocytes/100 WBC (Bld) 23.8 % Normal 20.5-60.0 [facility] Comment on above: Performed By: #### C BC #### [facility] [address] [place] [address] Dr. Errol Flannery MANUAL DIFF REQ NO Normal [facility] Comment on above: Performed By: #### C BC #### [facility] [address] [place] [address] Dr. Errol Flannery MCH (RBC) [Entitic mass] 30.4 pg Normal 26.7-34.0 [facility] Comment on above: Performed By: #### C BC #### [facility] [address] [place] [address] Dr. Errol Flannery MCHC (RBC) [Mass/Vol] 32.5 g/dL Normal 29.9-35.2 [facility] Comment on above: Performed By: #### C BC #### [facility] [address] [place] [address] Dr. Errol Flannery MCV (RBC) [Entitic vol] 93.5 fL Normal 81.0-99.0 [facility] Comment on above: Performed By: #### C BC #### [facility] [address] [place] [address] Dr. Errol Flannery MONO # 0.6 103/ul Normal 0.3-0.8 [facility] Comment on above: Performed By: #### C BC #### [facility] [address] [place] [address] Dr. Errol Flannery Monocytes/100 WBC (Bld) 9.3 % Normal 1.7-12.0 [facility] Comment on above: Performed By: #### C BC #### [facility] [address] [place] [address] Dr. Errol Flannery NEUT # 3.8 103/ul Normal 1.4-6.5 [facility] Comment on above: Performed By: #### C BC #### [facility] [address] [place] [address] Dr. Errol Flannery Neutrophils/100 WBC (Bld) 64.4 % Normal 43.0-75.0 [facility] Comment on above: Performed By: #### C BC #### [facility] [address] [place] [address] Dr. Errol Flannery Platelet mean volume (Bld) [Entitic vol] 9.2 fL Critically low 9.5-13.5 [facility] Comment on above: Performed By: #### C BC #### [facility] [address] [place] [address] Dr. Errol Flannery PLT 233 103/ul Normal 150-450 [facility] Comment on above: Performed By: #### C BC #### [facility] [address] [place] [address] Dr. Errol Flannery RBC 3.72 106/ul Critically low 4.20-5.40 [facility] Comment on above: Performed By: #### C BC #### [facility] [address] [address] [address] Errol Flannery WBC 5.9 103/ul Normal 4.0-11.0 [facility] Comment on above: Performed By: #### C BC #### [facility] [address] [place] [address] Dr. Errol Flannery PROF 14(COMP METB)on 022 Albumin [Mass/Vol] 2.2 g/dL Critically low 3.4-5.0 [facility] Comment on above: Performed By: #### L ACT #### [facility] [address] [place] [address] Dr. Errol Flannery Albumin/Globulin [Mass ratio] 0.8 {ratio} Normal [facility] Comment on above: Performed By: #### L ACT #### [facility] [address] [place] [address] Dr. Errol Flannery ALP [Catalytic activity/Vol] 61 U/L Normal 46-116 [facility] Comment on above: Performed By: #### L ACT #### [facility] [address] [place] [address] Dr. Errol Flannery ALT [Catalytic activity/Vol] 28 U/L Normal 14-59 [facility] Comment on above: Performed By: #### L ACT #### [facility] [address] [place] [address] Dr. Errol Flannery Anion gap [Moles/Vol] 8.6 mmol/L Normal [facility] Comment on above: Performed By: #### L ACT #### [facility] [address] [place] [address] Dr. Errol Flannery AST [Catalytic activity/Vol] 14 U/L Critically low 15-37 [facility] Comment on above: Performed By: #### L ACT #### [facility] [address] [address] [address] Errol Flannery Bilirubin [Mass/Vol] 0.2 mg/dL Normal 0.2-1.0 [facility] Comment on above: Performed By: #### L ACT #### [facility] [address] [address] [address] Errol Flannery Calcium [Mass/Vol] 7.9 mg/dL Critically low 8.5-10.1 Th [facility] Comment on above: Performed By: #### L ACT #### [facility] [address] [address] [address] Errol Flannery Chloride [Moles/Vol] 109 mmol/L Critically high 98-107 [facility] Comment on above: Performed By: #### L ACT #### [facility] [address] [address] [address] Errol Flannery CO2 [Moles/Vol] 28.6 mmol/L Normal 21.0-32.0 [facility] Comment on above: Performed By: #### L ACT #### [facility] [address] [address] [address] Errol Flannery Creatinine [Mass/Vol] 1.05 mg/dL Critically high 0.55-1.02 [facility] Comment on above: Performed By: #### L ACT #### [facility] [address] [address] [address] Errol Flannery EGFR-AF MALAYSIAN 60 mL/min/1.73m2 Normal >=60 Th [facility] Comment on above: Performed By: #### L ACT #### [facility] [address] [address] [address] Errol Flannery EGFR-NON AF MALAYSIAN 50 mL/min/1.73m2 Critically low >=60 [facility] Comment on above: Performed By: #### L ACT #### [facility] [address] [address] [address] Errol Flannery Globulin (S) [Mass/Vol] 2.8 g/dL Normal [facility] Comment on above: Performed By: #### L ACT #### [facility] [address] [address] [address] Errol Flannery Glucose [Mass/Vol] 111 mg/dL Critically high 74-106 T [facility] Comment on above: Performed By: #### L ACT #### [facility] [address] [address] [address] Errol Flannery Potassium [Moles/Vol] 3.2 mmol/L Critically low 3.5-5.1 [facility] Comment on above: Performed By: #### L ACT #### [facility] [address] [address] [address] Errol Flannery Protein [Mass/Vol] 5.0 g/dL Critically low 6.4-8.2 Th [facility] Comment on above: Performed By: #### L ACT #### [facility] [address] [address] [address] Errol Flannery Sodium [Moles/Vol] 143 mmol/L Normal 136-145 [facility] Comment on above: Performed By: #### L ACT #### [facility] [address] [address] [address] Errol Flannery Urea nitrogen [Mass/Vol] 9.0 mg/dL Normal 7.0-18.0 [facility] Comment on above: Performed By: #### L ACT #### [facility] [address] [address] [address] Errol Flannery Urea nitrogen/Creatinine [Mass ratio] 8.6 mg/mg Normal [facility] Comment on above: Performed By: #### L ACT #### [facility] [address] [address] [address] Errol Flannery CBC AUTO DIFFon 04-08-2022 BASO # 0.0 103/ul Normal 0.0-0.1 [facility] Comment on above: Performed By: #### C BC ####[facility] [address] [address]Dr. Errol Flannery Basophils/100 WBC (Bld) 0.5 % Normal 0.2-2.0 [facility] Comment on above: Performed By: #### C BC ####[facility] [address] [address]Dr. Errol Flannery EO # 0.1 103/ul Normal 0.0-0.7 [facility] Comment on above: Performed By: #### C BC ####[facility] [address] [address]Dr. Errol Flannery Eosinophils/100 WBC (Bld) 1.8 % Normal 0.9-7.0 [facility] Comment on above: Performed By: #### C BC ####[facility] [address] [place], [place] [address]Dr. Errol Flannery Erythrocyte distribution width (RBC) [Ratio] 13.4 % Normal 11.0-15.0 [facility] Comment on above: Performed By: #### C BC ####[facility] [address] [place], [place] [address]Dr. Errol Flannery Hematocrit (Bld) [Volume fraction] 34.3 % Critically low 36.0-48.0 [facility] Comment on above: Performed By: #### C BC ####[facility] [address] [place], [place] [address]Dr. Errol Flannery Hemoglobin (Bld) [Mass/Vol] 11.1 g/dL Critically low 12.0-16.0 [facility] Comment on above: Performed By: #### C BC ####[facility] [address] [place], [place] [address]Dr. Errol Flannery IG # 0.01 10e3/ul Normal 0.00-0.03 [facility] Comment on above: Performed By: #### C BC ####[facility] [address] [place], [place] [address]Dr. Pammissy Falnnery IG % 0.2 % Normal 0.0-0.5 [facility] Comment on above: Performed By: #### C BC ####[facility] [address] [place], [place] [address]DrElana Flannery LYMPH # 1.4 103/ul Normal 1.2-3.8 [facility] Comment on above: Performed By: #### C BC ####[facility] [address] [id number]. Errol Flannery Lymphocytes/100 WBC (Bld) 32.4 % Normal 20.5-60.0 [facility] Comment on above: Performed By: #### C BC ####[facility] [address] [id number] Flannery MANUAL DIFF REQ NO Normal [facility] Comment on above: Performed By: #### C BC ####[facility] [address] [phone]. Errol Flannery MCH (RBC) [Entitic mass] 30.4 pg Normal 26.7-34.0 [facility] Comment on above: Performed By: #### C BC ####[facility] [address] [place], [place] [address]Dr. Errol Flannery MCHC (RBC) [Mass/Vol] 32.4 g/dL Normal 29.9-35.2 [facility] Comment on above: Performed By: #### C BC ####[facility] [address] [place], [place] [address]DrElana Flannery MCV (RBC) [Entitic vol] 94.0 fL Normal 81.0-99.0 [facility] Comment on above: Performed By: #### C BC ####[facility] [address] [address]Dr. Errol Flannery MONO # 0.5 103/ul Normal 0.3-0.8 [facility] Comment on above: Performed By: #### C BC ####[facility] [address] [place], [place] [address]DrElana Flannery Monocytes/100 WBC (Bld) 10.4 % Normal 1.7-12.0 [facility] Comment on above: Performed By: #### C BC ####[facility] [address] [place], [place] [address]DrElana Flannery NEUT # 2.4 103/ul Normal 1.4-6.5 [facility] Comment on above: Performed By: #### C BC ####[facility] [address] [address]Dr. Errol Prudencio Neutrophils/100 WBC (Bld) 54.7 % Normal 43.0-75.0 [facility] Comment on above: Performed By: #### C BC ####[facility] [address] [phone]. Pammissy Prudencio Platelet mean volume (Bld) [Entitic vol] 9.3 fL Critically low 9.5-13.5 [facility] Comment on above: Performed By: #### C BC ####[facility] [address] [address]Dr. Errol Flannery PLT 218 103/ul Normal 150-450 [facility] Comment on above: Performed By: #### C BC ####[facility] [address] [address]Dr. Errol Flannery RBC 3.65 106/ul Critically low 4.20-5.40 [facility] Comment on above: Performed By: #### C BC ####[facility] [address] [address]Dr. Errol Flannery WBC 4.4 103/ul Normal 4.0-11.0 [facility] Comment on above: Performed By: #### C BC ####[facility] [address] [phone] Flannery PROF 14(COMP METB)on 022 Albumin [Mass/Vol] 2.2 g/dL Critically low 3.4-5.0 [facility] Comment on above: Performed By: #### C MP ####[facility] [address] [address]DrElana Flannery Albumin/Globulin [Mass ratio] 0.8 {ratio} Normal [facility] Comment on above: Performed By: #### C MP ####[facility] [address] [phone] Flannery ALP [Catalytic activity/Vol] 64 U/L Normal 46-116 [facility] Comment on above: Performed By: #### C MP ####[facility] [address] [phone]. Errol Flannery ALT [Catalytic activity/Vol] 34 U/L Normal 14-59 [facility] Comment on above: Performed By: #### C MP ####[facility] [address] [phone]. Errol Flannery Anion gap [Moles/Vol] 8.1 mmol/L Normal [facility] Comment on above: Performed By: #### C MP ####[facility] [address] [phone]. Errol Flannery AST [Catalytic activity/Vol] 14 U/L Critically low 15-37 [facility] Comment on above: Performed By: #### C MP ####[facility] [address] [phone]. Errol Prudencio Bilirubin [Mass/Vol] 0.3 mg/dL Normal 0.2-1.0 [facility] Comment on above: Performed By: #### C MP ####[facility] [address] [phone]. Errol Prudencio Calcium [Mass/Vol] 8.1 mg/dL Critically low 8.5-10.1 [facility] Comment on above: Performed By: #### C MP ####[facility] [address] [phone]. Errol Prudencio Chloride [Moles/Vol] 110 mmol/L Critically high 98-107 [facility] Comment on above: Performed By: #### C MP ####[facility] [address] [phone]. Errol Prudencio CO2 [Moles/Vol] 28.0 mmol/L Normal 21.0-32.0 [facility] Comment on above: Performed By: #### C MP ####[facility] [address] [phone]. Errol Prudencio Creatinine [Mass/Vol] 1.00 mg/dL Normal 0.55-1.02 [facility] Comment on above: Performed By: #### C MP ####[facility] [address] [phone]. Errol Prudencio EGFR-AF MALAYSIAN >60 Normal >=60 [facility] Comment on above: Performed By: #### C MP ####[facility] [address] [phone]. Errol Prudencio EGFR-NON AF MALAYSIAN 52 mL/min/1.73m2 Critically low >=60 [facility] Comment on above: Performed By: #### C MP ####[facility] [address] [phone]. Errol Prudencio Globulin (S) [Mass/Vol] 2.7 g/dL Normal [facility] Comment on above: Performed By: #### C MP ####[facility] [address] [address]Dr. Errol Flannery Glucose [Mass/Vol] 88 mg/dL Normal 74-106 [facility] Comment on above: Performed By: #### C MP ####[facility] [address] [phone]. Errol Flannery Potassium [Moles/Vol] 3.1 mmol/L Critically low 3.5-5.1 [facility] Comment on above: Performed By: #### C MP ####[facility] [address] [address]Dr. Errol Flannery Protein [Mass/Vol] 4.9 g/dL Critically low 6.4-8.2 Th [facility] Comment on above: Performed By: #### C MP ####[facility] [address] [phone]. Errol Flannery Sodium [Moles/Vol] 143 mmol/L Normal 136-145 [facility] Comment on above: Performed By: #### C MP ####[facility] [address] [address]Dr. Errol Flannery Urea nitrogen [Mass/Vol] 5.0 mg/dL Critically low 7.0-18.0 [facility] Comment on above: Performed By: #### C MP ####[facility] [address] [address]Dr. Errol Flannery Urea nitrogen/Creatinine [Mass ratio] 5.0 mg/mg Normal [facility] Comment on above: Performed By: #### C MP ####[facility] [address] [address]Dr. Errol Flannery CBC AUTO DIFFon 04-07-2022 BASO # 0.0 103/ul Normal 0.0-0.1 [facility] Comment on above: Performed By: #### L ACT #### [facility] [address] [address] [address] Errol Flannery Basophils/100 WBC (Bld) 0.7 % Normal 0.2-2.0 [facility] Comment on above: Performed By: #### L ACT #### [facility] [address] [address] [address] Errol Flannery EO # 0.1 103/ul Normal 0.0-0.7 [facility] Comment on above: Performed By: #### L ACT #### [facility] [address] [address] [address] Errol Flannery Eosinophils/100 WBC (Bld) 2.0 % Normal 0.9-7.0 [facility] Comment on above: Performed By: #### L ACT #### [facility] [address] [address] [address] Errol Flannery Erythrocyte distribution width (RBC) [Ratio] 13.6 % Normal 11.0-15.0 [facility] Comment on above: Performed By: #### L ACT #### [facility] [address] [address] [address] Errol Flannery Hematocrit (Bld) [Volume fraction] 34.3 % Critically low 36.0-48.0 [facility] Comment on above: Performed By: #### L ACT #### [facility] [address] [address] [address] Errol Flannery Hemoglobin (Bld) [Mass/Vol] 11.1 g/dL Critically low 12.0-16.0 [facility] Comment on above: Performed By: #### L ACT #### [facility] [address] [address] [address] Errol Flannery IG # 0.02 10e3/ul Normal 0.00-0.03 [facility] Comment on above: Performed By: #### L ACT #### [facility] [address] [address] [address] Errol Flannery IG % 0.4 % Normal 0.0-0.5 [facility] Comment on above: Performed By: #### L ACT #### [facility] [address] [place] [address] Dr. Errol Flannery LYMPH # 1.4 103/ul Normal 1.2-3.8 [facility] Comment on above: Performed By: #### L ACT #### [facility] [address] [place] [address] Dr. Errol Flannery Lymphocytes/100 WBC (Bld) 30.4 % Normal 20.5-60.0 [facility] Comment on above: Performed By: #### L ACT #### [facility] [address] [place] [address] Dr. Errol Flannery MANUAL DIFF REQ NO Normal [facility] Comment on above: Performed By: #### L ACT #### [facility] [address] [place] [address] Dr. Errol Flannery MCH (RBC) [Entitic mass] 30.8 pg Normal 26.7-34.0 [facility] Comment on above: Performed By: #### L ACT #### [facility] [address] [place] [address] Dr. Errol Flannery MCHC (RBC) [Mass/Vol] 32.4 g/dL Normal 29.9-35.2 [facility] Comment on above: Performed By: #### L ACT #### [facility] [address] [place] [address] Dr. Errol Flannery MCV (RBC) [Entitic vol] 95.3 fL Normal 81.0-99.0 [facility] Comment on above: Performed By: #### L ACT #### [facility] [address] [address] [address] Errol Flannery MONO # 0.4 103/ul Normal 0.3-0.8 [facility] Comment on above: Performed By: #### L ACT #### [facility] [address] [address] [address] Errol Flannery Monocytes/100 WBC (Bld) 9.3 % Normal 1.7-12.0 [facility] Comment on above: Performed By: #### L ACT #### [facility] [address] [address] [address] Errol Flannery NEUT # 2.6 103/ul Normal 1.4-6.5 [facility] Comment on above: Performed By: #### L ACT #### [facility] [address] [place] [address] Dr. Errol Flannery Neutrophils/100 WBC (Bld) 57.2 % Normal 43.0-75.0 [facility] Comment on above: Performed By: #### L ACT #### [facility] [address] [place] [address] Dr. Errol Flannery Platelet mean volume (Bld) [Entitic vol] 9.7 fL Normal 9.5-13.5 [facility] Comment on above: Performed By: #### L ACT #### [facility] [address] [place] [address] Dr. Errol Flannery PLT 220 103/ul Normal 150-450 [facility] Comment on above: Performed By: #### L ACT #### [facility] [address] [address] [address] Errol Flannery RBC 3.60 106/ul Critically low 4.20-5.40 [facility] Comment on above: Performed By: #### L ACT #### [facility] [address] [place] [address] Dr. Errol Flannery WBC 4.6 103/ul Normal 4.0-11.0 [facility] Comment on above: Performed By: #### L ACT #### [facility] [id number] Errol Flannery CT ABD/PELV W CONon 04-07-[address] ABD/PELV W CON EXAMINATION: CT [...] ALEXANDER DUMONT Date: 2022-04-07 12:50 Normal [facility] PROF 14(COMP METB)on 022 Albumin [Mass/Vol] 2.2 g/dL Critically low 3.4-5.0 Th [facility] Comment on above: Performed By: #### C MP ####[facility] [address] [address]Dr. Pammissy Prudencio Albumin/Globulin [Mass ratio] 0.8 {ratio} Normal [facility] Comment on above: Performed By: #### C MP ####[facility] [address] [address]Dr. Errol Flannery ALP [Catalytic activity/Vol] 70 U/L Normal 46-116 [facility] Comment on above: Performed By: #### C MP ####[facility] [address] [place], [place] [address]Dr. Errol Flannery ALT [Catalytic activity/Vol] 40 U/L Normal 14-59 [facility] Comment on above: Performed By: #### C MP ####[facility] [address] [place], [place] [address]Dr. Errol Flannery Anion gap [Moles/Vol] 10.0 mmol/L Normal Th [facility] Comment on above: Performed By: #### C MP ####[facility] [address] [place], [place] [address]Dr. Errol Flannery AST [Catalytic activity/Vol] 16 U/L Normal 15-37 [facility] Comment on above: Performed By: #### C MP ####[facility] [address] [place], [place] [address]Dr. Errol Flannery Bilirubin [Mass/Vol] 0.4 mg/dL Normal 0.2-1.0 [facility] Comment on above: Performed By: #### C MP ####[facility] [address] [place], [place] [address]Dr. Errol Flannery Calcium [Mass/Vol] 8.4 mg/dL Critically low 8.5-10.1 Th [facility] Comment on above: Performed By: #### C MP ####[facility] [address] [place], [place] [address]Dr. Errol Flannery Chloride [Moles/Vol] 111 mmol/L Critically high 98-107 [facility] Comment on above: Performed By: #### C MP ####[facility] [address] [phone]. Errol Prudencio CO2 [Moles/Vol] 26.3 mmol/L Normal 21.0-32.0 [facility] Comment on above: Performed By: #### C MP ####[facility] [address] [phone]. Errol Flannery Creatinine [Mass/Vol] 1.05 mg/dL Critically high 0.55-1.02 [facility] Comment on above: Performed By: #### C MP ####[facility] [address] [address]Dr. Errol Flannery EGFR-AF MALAYSIAN 60 mL/min/1.73m2 Normal >=60 [facility] Comment on above: Performed By: #### C MP ####[facility] [address] [address]Dr. Errol Flannery EGFR-NON AF MALAYSIAN 50 mL/min/1.73m2 Critically low >=60 [facility] Comment on above: Performed By: #### C MP ####[facility] [address] [address]Dr. Errol Flannery Globulin (S) [Mass/Vol] 2.8 g/dL Normal [facility] Comment on above: Performed By: #### C MP ####[facility] [address] [place] [address]Dr. Errol Flannery Glucose [Mass/Vol] 95 mg/dL Normal 74-106 [facility] Comment on above: Performed By: #### C MP ####[facility] [address] [place] [phone]. Errol Flannery Potassium [Moles/Vol] 3.3 mmol/L Critically low 3.5-5.1 [facility] Comment on above: Performed By: #### C MP ####[facility] [address] [place] [phone]. Errol Flannery Protein [Mass/Vol] 5.0 g/dL Critically low 6.4-8.2 [facility] Comment on above: Performed By: #### C MP ####[facility] [address] [place] [address]DrElana Flannery Sodium [Moles/Vol] 144 mmol/L Normal 136-145 [facility] Comment on above: Performed By: #### C MP ####[facility] [address] [place] [phone] Flannery Urea nitrogen [Mass/Vol] 10.0 mg/dL Normal 7.0-18.0 [facility] Comment on above: Performed By: #### C MP ####[facility] [address] [place] [address]DrElana Flannery Urea nitrogen/Creatinine [Mass ratio] 9.5 mg/mg Normal [facility] Comment on above: Performed By: #### C MP ####[facility] [address] [place] [address]DrElana Flannery CBC AUTO DIFFon 04-06-2022 BASO # 0.0 103/ul Normal 0.0-0.1 [facility] Comment on above: Performed By: #### C BC #### [facility] [address] [place] [address] Dr. Errol Flannery Basophils/100 WBC (Bld) 0.3 % Normal 0.2-2.0 [facility] Comment on above: Performed By: #### C BC #### [facility] [address] [address] [address] Errol Flannery EO # 0.0 103/ul Normal 0.0-0.7 [facility] Comment on above: Performed By: #### C BC #### [facility] [address] [address] [address] Errol Flannery Eosinophils/100 WBC (Bld) 0.4 % Critically low 0.9-7.0 [facility] Comment on above: Performed By: #### C BC #### [facility] [address] [address] [address] Errol Flannery Erythrocyte distribution width (RBC) [Ratio] 13.6 % Normal 11.0-15.0 [facility] Comment on above: Performed By: #### C BC #### [facility] [address] [place] [address] Dr. Errol Flannery Hematocrit (Bld) [Volume fraction] 35.7 % Critically low 36.0-48.0 [facility] Comment on above: Performed By: #### C BC #### [facility] [address] [place] [address] Dr. Errol Flannery Hemoglobin (Bld) [Mass/Vol] 11.5 g/dL Critically low 12.0-16.0 [facility] Comment on above: Performed By: #### C BC #### [facility] [address] [place] [address] Dr. Errol Flannery IG # 0.03 10e3/ul Normal 0.00-0.03 [facility] Comment on above: Performed By: #### C BC #### [facility] [address] [place] [address] Dr. Errol Flannery IG % 0.4 % Normal 0.0-0.5 [facility] Comment on above: Performed By: #### C BC #### [facility] [address] [place] [address] Dr. Errol Flannery LYMPH # 1.3 103/ul Normal 1.2-3.8 [facility] Comment on above: Performed By: #### C BC #### [facility] [address] [place] [address] Dr. Errol Flannery Lymphocytes/100 WBC (Bld) 17.5 % Critically low 20.5-60.0 [facility] Comment on above: Performed By: #### C BC #### [facility] [address] [place] [address] Dr. Errol Flannery MANUAL DIFF REQ NO Normal [facility] Comment on above: Performed By: #### C BC #### [facility] [address] [place] [address] Dr. Errol Flannery MCH (RBC) [Entitic mass] 30.5 pg Normal 26.7-34.0 [facility] Comment on above: Performed By: #### C BC #### [facility] [address] [address] [address] Errol Flannery MCHC (RBC) [Mass/Vol] 32.2 g/dL Normal 29.9-35.2 [facility] Comment on above: Performed By: #### C BC #### [facility] [address] [address] [address] Errol Flannery MCV (RBC) [Entitic vol] 94.7 fL Normal 81.0-99.0 [facility] Comment on above: Performed By: #### C BC #### [facility] [address] [place] [address] Dr. Errol Flannery MONO # 0.6 103/ul Normal 0.3-0.8 [facility] Comment on above: Performed By: #### C BC #### [facility] [address] [place] [address] Dr. Errol Flannery Monocytes/100 WBC (Bld) 8.5 % Normal 1.7-12.0 [facility] Comment on above: Performed By: #### C BC #### [facility] [address] [place] [address] Dr. Errol Flannery NEUT # 5.2 103/ul Normal 1.4-6.5 [facility] Comment on above: Performed By: #### C BC #### [facility] [address] [place] [address] Dr. Errol Flannery Neutrophils/100 WBC (Bld) 72.9 % Normal 43.0-75.0 [facility] Comment on above: Performed By: #### C BC #### [facility] [address] [place] [address] Dr. Errol Flannery Platelet mean volume (Bld) [Entitic vol] 9.9 fL Normal 9.5-13.5 [facility] Comment on above: Performed By: #### C BC #### [facility] [address] [place] [address] Dr. Errol Flannery PLT 190 103/ul Normal 150-450 [facility] Comment on above: Performed By: #### C BC #### [facility] [address] [address] [address] Errol Flannery RBC 3.77 106/ul Critically low 4.20-5.40 [facility] Comment on above: Performed By: #### C BC #### [facility] [address] [address] [address] Errol Flannery WBC 7.2 103/ul Normal 4.0-11.0 [facility] Comment on above: Performed By: #### C BC #### [facility] [address] [address] [address] Errol Flannery PROF 14(COMP METB)on 022 Albumin [Mass/Vol] 2.1 g/dL Critically low 3.4-5.0 [facility] Comment on above: Performed By: #### C MP #### [facility] [address] [place] [address] Dr. Errol Flannery Albumin/Globulin [Mass ratio] 0.7 {ratio} Normal [facility] Comment on above: Performed By: #### C MP #### [facility] [address] [place] [address] Dr. Errol Flannery ALP [Catalytic activity/Vol] 74 U/L Normal 46-116 [facility] Comment on above: Performed By: #### C MP #### [facility] [address] [place] [address] Dr. Errol Flannery ALT [Catalytic activity/Vol] 52 U/L Normal 14-59 [facility] Comment on above: Performed By: #### C MP #### [facility] [address] [place] [address] Dr. Errol Flannery Anion gap [Moles/Vol] 14.0 mmol/L Normal [facility] Comment on above: Performed By: #### C MP #### [facility] [address] [place] [address] Dr. Errol Flannery AST [Catalytic activity/Vol] 24 U/L Normal 15-37 [facility] Comment on above: Performed By: #### C MP #### [facility] [address] [address] [address] Errol Flannery Bilirubin [Mass/Vol] 0.5 mg/dL Normal 0.2-1.0 [facility] Comment on above: Performed By: #### C MP #### [facility] [address] [address] [address] Errol Flannery Calcium [Mass/Vol] 8.1 mg/dL Critically low 8.5-10.1 [facility] Comment on above: Performed By: #### C MP #### [facility] [address] [address] [address] Errol Flannery Chloride [Moles/Vol] 109 mmol/L Critically high 98-107 [facility] Comment on above: Performed By: #### C MP #### [facility] [address] [place] [address] Dr. Errol Flannery CO2 [Moles/Vol] 24.6 mmol/L Normal 21.0-32.0 [facility] Comment on above: Performed By: #### C MP #### [facility] [address] [address] [address] Errol Flannery Creatinine [Mass/Vol] 0.93 mg/dL Normal 0.55-1.02 [facility] Comment on above: Performed By: #### C MP #### [facility] [address] [place] [address] Dr. Errol Flannery EGFR-AF MALAYSIAN >60 Normal >=60 [facility] Comment on above: Performed By: #### C MP #### [facility] [address] [place] [address] Dr. Errol Flannery EGFR-NON AF MALAYSIAN 57 mL/min/1.73m2 Critically low >=60 [facility] Comment on above: Performed By: #### C MP #### [facility] [address] [place] [address] Dr. Errol Flannery Globulin (S) [Mass/Vol] 3.0 g/dL Normal [facility] Comment on above: Performed By: #### C MP #### [facility] [address] [address] [address] Errol Flannery Glucose [Mass/Vol] 93 mg/dL Normal 74-106 [facility] Comment on above: Performed By: #### C MP #### [facility] [address] [address] [address] Errol Flannery Potassium [Moles/Vol] 3.6 mmol/L Normal 3.5-5.1 [facility] Comment on above: Performed By: #### C MP #### [facility] [address] [address] [address] Errol Flannery Protein [Mass/Vol] 5.1 g/dL Critically low 6.4-8.2 [facility] Comment on above: Performed By: #### C MP #### [facility] [address] [address] [address] Errol Flannery Sodium [Moles/Vol] 141 mmol/L Normal 136-145 [facility] Comment on above: Performed By: #### C MP #### [facility] [address] [address] [address] Errol Flannery Urea nitrogen [Mass/Vol] 11.0 mg/dL Normal 7.0-18.0 [facility] Comment on above: Performed By: #### C MP #### [facility] [address] [address] [address] Errol Flannery Urea nitrogen/Creatinine [Mass ratio] 11.8 mg/mg Normal [facility] Comment on above: Performed By: #### C MP #### [facility] [address] [address] [address] Errol Flannery XR ABD FLAT UP_PA [...] ALEXANDER DUMONT Date: 2022-04-06 11:49 Normal [facility] CBC AUTO DIFFon 04-05-2022 BASO # 0.0 103/ul Normal 0.0-0.1 [facility] Comment on above: Performed By: #### L ACT #### [facility] [address] [address] [address] Errol Flannery Basophils/100 WBC (Bld) 0.2 % Normal 0.2-2.0 [facility] Comment on above: Performed By: #### L ACT #### [facility] [address] [place] [address] Dr. Errol Flannery EO # 0.0 103/ul Normal 0.0-0.7 [facility] Comment on above: Performed By: #### L ACT #### [facility] [address] [place] [address] Dr. Errol Flannery Eosinophils/100 WBC (Bld) 0.1 % Critically low 0.9-7.0 [facility] Comment on above: Performed By: #### L ACT #### [facility] [address] [place] [address] Dr. Errol Flannery Erythrocyte distribution width (RBC) [Ratio] 13.6 % Normal 11.0-15.0 [facility] Comment on above: Performed By: #### L ACT #### [facility] [address] [place] [address] Dr. Errol Flannery Hematocrit (Bld) [Volume fraction] 37.1 % Normal 36.0-48.0 [facility] Comment on above: Performed By: #### L ACT #### [facility] [address] [place] [address] Dr. Errol Flannery Hemoglobin (Bld) [Mass/Vol] 11.9 g/dL Critically low 12.0-16.0 [facility] Comment on above: Performed By: #### L ACT #### [facility] [address] [place] [address] Dr. Errol Flannery IG # 0.04 10e3/ul Critically high 0.00-0.03 [facility] Comment on above: Performed By: #### L ACT #### [facility] [address] [place] [address] Dr. Errol Flannery IG % 0.4 % Normal 0.0-0.5 [facility] Comment on above: Performed By: #### L ACT #### [facility] [address] [place] [address] Dr. Errol Flannery LYMPH # 1.2 103/ul Normal 1.2-3.8 [facility] Comment on above: Performed By: #### L ACT #### [facility] [address] [place] [address] Dr. Errol Flannery Lymphocytes/100 WBC (Bld) 11.1 % Critically low 20.5-60.0 [facility] Comment on above: Performed By: #### L ACT #### [facility] [address] [place] [address] Dr. Errol Flannery MANUAL DIFF REQ NO Normal [facility] Comment on above: Performed By: #### L ACT #### [facility] [address] [place] [address] Dr. Errol Flannery MCH (RBC) [Entitic mass] 30.4 pg Normal 26.7-34.0 [facility] Comment on above: Performed By: #### L ACT #### [facility] [address] [place] [address] Dr. Errol Flannery MCHC (RBC) [Mass/Vol] 32.1 g/dL Normal 29.9-35.2 [facility] Comment on above: Performed By: #### L ACT #### [facility] [address] [place] [address] Dr. Errol Flannery MCV (RBC) [Entitic vol] 94.9 fL Normal 81.0-99.0 [facility] Comment on above: Performed By: #### L ACT #### [facility] [address] [place] [address] Dr. Errol Flannery MONO # 0.8 103/ul Normal 0.3-0.8 [facility] Comment on above: Performed By: #### L ACT #### [facility] [address] [address] [address] Errol Flannery Monocytes/100 WBC (Bld) 7.7 % Normal 1.7-12.0 [facility] Comment on above: Performed By: #### L ACT #### [facility] [address] [address] [address] Errol Flannery NEUT # 8.4 103/ul Critically high 1.4-6.5 [facility] Comment on above: Performed By: #### L ACT #### [facility] [address] [address] [address] Errol Flannery Neutrophils/100 WBC (Bld) 80.5 % Critically high 43.0-75.0 [facility] Comment on above: Performed By: #### L ACT #### [facility] [address] [place] [address] Dr. Errol Flannery Platelet mean volume (Bld) [Entitic vol] 9.4 fL Critically low 9.5-13.5 [facility] Comment on above: Performed By: #### L ACT #### [facility] [address] [place] [address] Dr. Errol Flannery PLT 197 103/ul Normal 150-450 [facility] Comment on above: Performed By: #### L ACT #### [facility] [address] [address] [address] Errol Falnnery RBC 3.91 106/ul Critically low 4.20-5.40 [facility] Comment on above: Performed By: #### L ACT #### [facility] [address] [address] [address] Errol Flannery WBC 10.5 103/ul Normal 4.0-11.0 [facility] Comment on above: Performed By: #### L ACT #### [facility] [address] [place] [address] Dr. Errol Flannery PROF 14(COMP METB)on 022 Albumin [Mass/Vol] 2.4 g/dL Critically low 3.4-5.0 Th [facility] Comment on above: Performed By: #### C MP ####[facility] [address] [address]Dr. Errol Prudencio Albumin/Globulin [Mass ratio] 0.8 {ratio} Normal [facility] Comment on above: Performed By: #### C MP ####[facility] [address] [address]Dr. Errol Prudencio ALP [Catalytic activity/Vol] 94 U/L Normal 46-116 [facility] Comment on above: Performed By: #### C MP ####[facility] [address] [place], [place] [address]Dr. Pammissy Flannery ALT [Catalytic activity/Vol] 87 U/L Critically high 14-59 [facility] Comment on above: Performed By: #### C MP ####[facility] [address] [place], [place] [address]Dr. Errol Flannery Anion gap [Moles/Vol] 8.3 mmol/L Normal [facility] Comment on above: Performed By: #### C MP ####[facility] [address] [place], [place] [address]Dr. Errol Prudencio AST [Catalytic activity/Vol] 47 U/L Critically high 15-37 [facility] Comment on above: Performed By: #### C MP ####[facility] [address] [place], [place] [address]Dr. Errol Flannery Bilirubin [Mass/Vol] 0.6 mg/dL Normal 0.2-1.0 [facility] Comment on above: Performed By: #### C MP ####[facility] [address] [place], [place] [address]Dr. Errol Flannery Calcium [Mass/Vol] 8.3 mg/dL Critically low 8.5-10.1 Th [facility] Comment on above: Performed By: #### C MP ####[facility] [address] [place], [place] [address]Dr. Errol Flannery Chloride [Moles/Vol] 106 mmol/L Normal 98-107 [facility] Comment on above: Performed By: #### C MP ####[facility] [address] [id number] Errol Flannery CO2 [Moles/Vol] 29.3 mmol/L Normal 21.0-32.0 [facility] Comment on above: Performed By: #### C MP ####[facility] [address] [id number] Errol Flannery Creatinine [Mass/Vol] 0.97 mg/dL Normal 0.55-1.02 [facility] Comment on above: Performed By: #### C MP ####[facility] [address] [id number] Errol Flannery EGFR-AF MALAYSIAN >60 Normal >=60 [facility] Comment on above: Performed By: #### C MP ####[facility] [address] [address]Dr. Errol Flannery EGFR-NON AF MALAYSIAN 54 mL/min/1.73m2 Critically low >=60 [facility] Comment on above: Performed By: #### C MP ####[facility] [address] [id number]. Errol Flannery Globulin (S) [Mass/Vol] 3.1 g/dL Normal [facility] Comment on above: Performed By: #### C MP ####[facility] [address] [id number] Errol Flannery Glucose [Mass/Vol] 100 mg/dL Normal 74-106 [facility] Comment on above: Performed By: #### C MP ####[facility] [address] [id number]. Errol Flannery Potassium [Moles/Vol] 3.6 mmol/L Normal 3.5-5.1 [facility] Comment on above: Performed By: #### C MP ####[facility] [address] [id number]. Errol Flannery Protein [Mass/Vol] 5.5 g/dL Critically low 6.4-8.2 Th [facility] Comment on above: Performed By: #### C MP ####[facility] [address] [place], [place] [address]Mb. Errol Flannery Sodium [Moles/Vol] 140 mmol/L Normal 136-145 [facility] Comment on above: Performed By: #### C MP ####[facility] [address] [place], [place] [address]Ge. Errol Flannery Urea nitrogen [Mass/Vol] 15.0 mg/dL Normal 7.0-18.0 [facility] Comment on above: Performed By: #### C MP ####[facility] [address] [place], [place] [address]Ot. Errol Flannery Urea nitrogen/Creatinine [Mass ratio] 15.5 mg/mg Normal [facility] Comment on above: Performed By: #### C MP ####[facility] [address] [place], [place] [address]Ff. Errol Flannery XR ABD FLAT_UPon 04-05-2022 XR [...] by: ALEXANDER DUMONT Date: 2022-04-05 07:15 Normal [facility] CBC AUTO DIFFon 04-04-2022 BASO # 0.0 103/ul Normal 0.0-0.1 [facility] Comment on above: Performed By: #### C BC #### [facility] [address] [place], [place] [address] Dr. Errol Flannery Basophils/100 WBC (Bld) 0.2 % Normal 0.2-2.0 [facility] Comment on above: Performed By: #### C BC #### [facility] [address] [place], [place] [address] Dr. Errol Flannery EO # 0.0 103/ul Normal 0.0-0.7 [facility] Comment on above: Performed By: #### C BC #### [facility] [address] [place] [address] Dr. Errol Flannery Eosinophils/100 WBC (Bld) 0.0 % Critically low 0.9-7.0 [facility] Comment on above: Performed By: #### C BC #### [facility] [address] [place] [address] Dr. Errol Flannery Erythrocyte distribution width (RBC) [Ratio] 13.6 % Normal 11.0-15.0 [facility] Comment on above: Performed By: #### C BC #### [facility] [address] [place] [address] Dr. Errol Flannery Hematocrit (Bld) [Volume fraction] 44.1 % Normal 36.0-48.0 [facility] Comment on above: Performed By: #### C BC #### [facility] [address] [place] [address] Dr. Errol Flannery Hemoglobin (Bld) [Mass/Vol] 14.5 g/dL Normal 12.0-16.0 [facility] Comment on above: Performed By: #### C BC #### [facility] [address] [place] [address] Dr. Errol Flannery IG # 0.07 10e3/ul Critically high 0.00-0.03 [facility] Comment on above: Performed By: #### C BC #### [facility] [address] [place] [address] Dr. Errol Flannery IG % 0.4 % Normal 0.0-0.5 [facility] Comment on above: Performed By: #### C BC #### [facility] [address] [place] [address] Dr. Errol Falnnery LYMPH # 1.4 103/ul Normal 1.2-3.8 [facility] Comment on above: Performed By: #### C BC #### [facility] [address] [place] [address] Dr. Errol Flannery Lymphocytes/100 WBC (Bld) 7.4 % Critically low 20.5-60.0 [facility] Comment on above: Performed By: #### C BC #### [facility] [address] [place] [address] Dr. Errol Flannery MANUAL DIFF REQ NO Normal [facility] Comment on above: Performed By: #### C BC #### [facility] [address] [place] [address] Dr. rErol Flannery MCH (RBC) [Entitic mass] 30.7 pg Normal 26.7-34.0 [facility] Comment on above: Performed By: #### C BC #### [facility] [address] [place] [address] Dr. Errol Flannery MCHC (RBC) [Mass/Vol] 32.9 g/dL Normal 29.9-35.2 [facility] Comment on above: Performed By: #### C BC #### [facility] [address] [place] [address] Dr. Errol Flannery MCV (RBC) [Entitic vol] 93.2 fL Normal 81.0-99.0 [facility] Comment on above: Performed By: #### C BC #### [facility] [address] [place] [address] Dr. Errol Flannery MONO # 1.5 103/ul Critically high 0.3-0.8 [facility] Comment on above: Performed By: #### C BC #### [facility] [address] [place] [address] Dr. Errol Flannery Monocytes/100 WBC (Bld) 7.8 % Normal 1.7-12.0 [facility] Comment on above: Performed By: #### C BC #### [facility] [address] [place] [address] Dr. Errol Flannery NEUT # 15.6 103/ul Critically high 1.4-6.5 [facility] Comment on above: Performed By: #### C BC #### [facility] [address] [place] [address] Dr. Errol Flannery Neutrophils/100 WBC (Bld) 84.2 % Critically high 43.0-75.0 [facility] Comment on above: Performed By: #### C BC #### [facility] [address] [place], [place] [address] Dr. Errol Flannery Platelet mean volume (Bld) [Entitic vol] 9.6 fL Normal 9.5-13.5 [facility] Comment on above: Performed By: #### C BC #### [facility] [id number] Errol Flannery PLT 260 103/ul Normal 150-450 [facility] Comment on above: Performed By: #### C BC #### [facility] [address] [place], [place] [address] Dr. Errol Flannery RBC 4.73 106/ul Normal 4.20-5.40 [facility] Comment on above: Performed By: #### C BC #### [facility] [address] [place] [address] Dr. Errol Flannery WBC 18.5 103/ul Critically high 4.0-11.0 [facility] Comment on above: Performed By: #### C BC #### [facility] [address] [place] [address] ABD/PELV W CONon [...] LUZ DAHL Date: 2022-04-04 12:09 Normal [facility] Covid-19 PCR (CVDTB)on 03-19 SARS-CoV-2 (COVID-19) RNA NELLIE+probe Ql (Unsp spec) Not detected Normal NOT DETECTED [facility] Comment on above: Result Comment: When [...] for this test is supported by the Psych Sales Specialist of Health and Human Service's declaration that [...] used). Performed By: #### L ACT #### [facility] [address] [place] [address] Dr. Errol Flannery ER URINE PROFILEon 2 Bilirubin Ql (U) Negative Normal NEGATIVE [facility] Comment on above: Performed By: #### U MICRO, ERUR #### [facility] [address] [place] [address] Dr. Errol Flannery Clarity (U) SL CLOUDY Abnormal CLEAR [facility] Comment on above: Performed By: #### U MICRO, ERUR #### [facility] [address] [place] [address] Dr. Errol Flannery Color (U) YELLOW Normal YELLOW [facility] Comment on above: Performed By: #### U MICRO, ERUR #### [facility] [address] [place] [address] Dr. Errol Flannery ERUAHD A micrscopic examination will be performed if indicated. Normal [facility] Comment on above: Performed By: #### U MICRO, ERUR #### [facility] [address] [place] [address] Dr. Errol Flannery Glucose Ql (U) Negative Normal NEGATIVE [facility] Comment on above: Performed By: #### U MICRO, ERUR #### [facility] [address] [address] [address] Errol Flannery Hemoglobin Ql (U) TRACE-INTACT Abnormal NEGATIVE [facility] Comment on above: Performed By: #### U MICRO, ERUR #### [facility] [address] [address] [address] Errol Flannery Ketones Ql (U) Negative Normal NEGATIVE [facility] Comment on above: Performed By: #### U MICRO, ERUR #### [facility] [address] [place] [address] Dr. Errol Flannery LEUKOCYTES TRACE Abnormal NEGATIVE [facility] Comment on above: Performed By: #### U MICRO, ERUR #### [facility] [address] [place] [address] Dr. Errol Flannery Nitrite Ql (U) Negative Normal NEGATIVE [facility] Comment on above: Performed By: #### U MICRO, ERUR #### [facility] [address] [place] [address] Dr. Errol Flannery pH (U) 8.0 [pH] Normal 5-9 [facility] Comment on above: Performed By: #### U MICRO, ERUR #### [facility] [address] [place] [address] Dr. Errol Flannery SPEC GRAVITY 1.010 Normal 1.005-<=1.025 [facility] Comment on above: Performed By: #### U MICRO, ERUR #### [facility] [address] [address] [address] Errol Flannery UA PROTEIN Negative Normal NEGATIVE/ TRACE [facility] Comment on above: Performed By: #### U MICRO, ERUR #### [facility] [address] [address] [address] Errol Flannery UR MICRO IND INDICATED Normal [facility] Comment on above: Performed By: #### U MICRO, ERUR #### [facility] [address] [place] [address] Dr. Errol Flannery Urobilinogen Qn (U) 0.2 {Jordyn'U}/dL Normal 0.2 - 1. 0 [facility] Comment on above: Performed By: #### U MICRO, ERUR #### [facility] [address] [address] [address] Errol Flannery LACTATE/LACTIC ACIDon 2021 Lactate [Moles/Vol] 1.3 mmol/L Normal 0.4-1.9 [facility] Comment on above: Performed By: #### L ACT ####[facility] [address] [address]Dr. Errol Flannery PROF 14(COMP METB)on 022 Albumin [Mass/Vol] 3.3 g/dL Critically low 3.4-5.0 [facility] Comment on above: Performed By: #### C BC #### [facility] [address] [place] [address] Dr. Errol Flannery Albumin/Globulin [Mass ratio] 0.9 {ratio} Normal [facility] Comment on above: Performed By: #### C BC #### [facility] [address] [place] [address] Dr. Errol Flannery ALP [Catalytic activity/Vol] 109 U/L Normal 46-116 [facility] Comment on above: Performed By: #### C BC #### [facility] [address] [address] [address] Errol Flannery ALT [Catalytic activity/Vol] 40 U/L Normal 14-59 [facility] Comment on above: Performed By: #### C BC #### [facility] [address] [address] [address] Errol Flannery Anion gap [Moles/Vol] 10.4 mmol/L Normal [facility] Comment on above: Performed By: #### C BC #### [facility] [address] [place] [address] Dr. Errol Flannery AST [Catalytic activity/Vol] 34 U/L Normal 15-37 [facility] Comment on above: Performed By: #### C BC #### [facility] [address] [place] [address] Dr. Errol Flannery Bilirubin [Mass/Vol] 0.8 mg/dL Normal 0.2-1.0 [facility] Comment on above: Performed By: #### C BC #### [facility] [address] [place] [address] Dr. Errol Flannery Calcium [Mass/Vol] 8.8 mg/dL Normal 8.5-10.1 [facility] Comment on above: Performed By: #### C BC #### [facility] [address] [address] [address] Errol Flannery Chloride [Moles/Vol] 101 mmol/L Normal 98-107 [facility] Comment on above: Performed By: #### C BC #### [facility] [address] [place] [address] Dr. Errol Flannery CO2 [Moles/Vol] 30.1 mmol/L Normal 21.0-32.0 [facility] Comment on above: Performed By: #### C BC #### [facility] [address] [place] [address] Dr. Errol Flannery Creatinine [Mass/Vol] 1.36 mg/dL Critically high 0.55-1.02 [facility] Comment on above: Performed By: #### C BC #### [facility] [address] [place] [address] Dr. Errol Flannery EGFR-AF MALAYSIAN 45 mL/min/1.73m2 Critically low >=60 [facility] Comment on above: Performed By: #### C BC #### [facility] [address] [place] [address] Dr. Errol Flannery EGFR-NON AF MALAYSIAN 37 mL/min/1.73m2 Critically low >=60 [facility] Comment on above: Performed By: #### C BC #### [facility] [address] [place] [address] Dr. Errol Flannery Globulin (S) [Mass/Vol] 3.6 g/dL Normal [facility] Comment on above: Performed By: #### C BC #### [facility] [address] [place] [address] Dr. Errol Flannery Glucose [Mass/Vol] 107 mg/dL Critically high 74-106 [facility] Comment on above: Performed By: #### C BC #### [facility] [address] [address] [address] Errol Flannery Potassium [Moles/Vol] 3.5 mmol/L Normal 3.5-5.1 [facility] Comment on above: Performed By: #### C BC #### [facility] [address] [address] [address] Errol Flannery Protein [Mass/Vol] 6.9 g/dL Normal 6.4-8.2 [facility] Comment on above: Performed By: #### C BC #### [facility] [address] [address] [address] Errol Flannery Sodium [Moles/Vol] 138 mmol/L Normal 136-145 [facility] Comment on above: Performed By: #### C BC #### [facility] [address] [address] [address] Errol Flannery Urea nitrogen [Mass/Vol] 18.0 mg/dL Normal 7.0-18.0 [facility] Comment on above: Performed By: #### C BC #### [facility] [address] [address] [address] Errol Flannery Urea nitrogen/Creatinine [Mass ratio] 13.2 mg/mg Normal [facility] Comment on above: Performed By: #### C BC #### [facility] [address] [address] [address] Errol Flannery URINE MICROSCOPIC ONLYon BACTERIA NONE SEEN Normal NONE SEEN [facility] Comment on above: Performed By: #### U MICRO, ERUR ####[facility] [address] [id number]. Errol Flannery Bacteria identified Cx Nom (U) NOT INDICATED Normal [facility] Comment on above: Performed By: #### U MICRO, ERUR ####[facility] [address] [id number]. Errol Flannery CAST NONE SEEN Normal NONE SEEN [facility] Comment on above: Performed By: #### U MICRO, ERUR ####[facility] [address] [address]Dr. Errol Flannery Crystals LM Nom (Urine sed) NONE SEEN Normal NONE SEEN [facility] Comment on above: Performed By: #### U MICRO, ERUR ####[facility] [address] [address]Dr. Errol Flannery Epithelial cells LM Ql (Urine sed) MANY Abnormal NONE SEEN /RARE [facility] Comment on above: Performed By: #### U MICRO, ERUR ####[facility] [address] [address]Dr. Errol Flannery MUCOUS NONE SEEN Normal NONE SEEN [facility] Comment on above: Performed By: #### U MICRO, ERUR ####[facility] [address] [address]Dr. Errol Flannery RBC 0-2 Normal 0-2 [facility] Comment on above: Performed By: #### U MICRO, ERUR ####[facility] [address] [place], [place] [address]Dr. Errol Flannery WBC 0-2 Abnormal NONE SEEN [facility] Comment on above: Performed By: #### U MICRO, ERUR ####[facility] [address] [place], [place] [address]Dr. Errol Flannery METHYLMALONIC ACID (MMA)on 0 01-07-2022 Methylmalonic Acid, Serum 252 nmol/L Normal 0-378 [facility] Comment on above: Performed By: #### M MA2 ####[facility] [address] [place], [place] [address]Dr. Errol Flannery TSHon 12-30-2021 TSH 2.969 uIU/mL Normal 0.470-4.[address] [facility] Comment on above: Performed By: #### T SH ####[facility] [address] [place], [place] [address]Dr. Errol Flannery TSH RANGE SEE BELOW Normal [facility] Comment on above: Result Comment: <0.3 4 UIU/ml HYPERTHYROID 0.34-5.60 UIU/ml EUTHYROID >5.60 UIU/ml HYPOTHYROID Performed By: #### T SH ####[facility] [address] [place], [place] [address]WcDr. Errol Flannery VIT B12 AND FOLATEon 022 Cobalamin (Vitamin B12) [Mass/Vol] 466.0 pg/mL Normal 239.0-931.0 [facility] Comment on above: Performed By: #### B 12FOL #### [facility] [address] [place], [place] [address] Dr. Errol Flannery FOLATE >20.00 Normal >=2.76 [facility] Comment on above: Performed By: #### B 12FOL #### [facility] [address] [place], [place] [address] Dr. Errol Flannery [facility] CARDIAC STRESS/REST INJE CTIONon 09-22-2021 [facility] CARDIAC STRESS/REST INJECTION Patient Name: SHAYNA GARCIA STUDY: MYOCARDIAL PERFUSION STRESS TEST WITH LEXISCAN Performing facility: [facility], [address] [place] [address], [address] Provider: Keith Claire MD, FACC PCP: Dr. Martha AVINA Supervising provider: Renaldo Jennings MD, FACC INDICATION: Chest Pain; HTN Chest Pain; Chest Pain; HISTORY: Gender: F; Age: 86 y/o ; Height: 0 cm; Weight: 0 kg. HTN; Chest Pain; Denies smoking. COMPARISON: No comparison. ACCESSION NUMBER(S): [id number]; [id number]; [id number] ORDERING CLINICIAN: VASQUEZ CLAIRE TECHNIQUE: ONE DAY [...] Electronically signed by: RENALDO JENNINGS MD Normal [facility] No Panel Informationon 09-22 Normal [facility] [employer] 250 DO Work Phone: Falls Risk Screeningon 08-17 Fall risk assessment b) One or more fall s in the last year [facility] Remember [employer] y 250 DO Work Phone: Tobacco use status CPHS b) No [facility] Remember [employer] 250 DO Work Phone: Office Visit [...] Instructions By signing my name below, I, Sofi Rajinder Ly LPN, attest that this documentation has been [...] 17Aug2021 08:58AM Heart Rate73, L Brachial Artery Zckmrjlz878, RUE, Sitting Vjhifijxc33, RUE, Sitting Height5 ft Fouskx690 lb BMI Qlltglhnmy28.25 kg/m2 BSA Calculated1.7 Tobacco Useb) No Fall [...] 01-17-2019 XR hip LT min 2V(w/wo pelvis)* [facility] Main [place] [address] [place], [place] [id number] XRay Report Signed Patient: Shayna Garcia MR#: [id number] : 1935 Acct:[id number] Age/Sex: 83 / F ADM Date: 01/17/19 Loc: [facility] Room: Type: [facility] Attending Dr: Daniel Domínguez MD Ordering Provider: [...] Zechariah Arvizu M.D.01/17/2019 3:28 PM Dictation Location: [address] [address] Transcribed By: CHRISTINE 01/17/19 1528 Dictated By: Zechariah Arvizu II, MD 01/17/19 1527 Signed By: 01/17/19 1528 Normal [facility] Vital Signs Date Time Vital Sign Value Performing Clinician Facility 03-09-2024 09:33-0400 Body height 165.1 cm [facility] 03-09-2024 09:33-0400 Body mass index (BMI) [Ratio] 23.1 kg/m2 [facility] 03-09-2024 09:33-0400 Body weight 63.16 kg [facility] 03-09-2024 09:33-0400 Diastolic blood pressure 90 mm[Hg] [facility] 03-09-2024 09:33-0400 Heart rate 62 /min [facility] 03-09-2024 09:33-0400 Respiratory rate 12 /min [facility] 03-09-2024 09:33-0400 Systolic blood pressure 176 mm[Hg] [facility] 02-07-2024 11:02-0400 Body height 165.1 cm [facility] 02-07-2024 11:02-0400 Body mass index (BMI) [Ratio] 22.7 kg/m2 [facility] 02-07-2024 11:02-0400 Body weight 61.91 kg [facility] 02-07-2024 11:02-0400 Diastolic blood pressure 76 mm[Hg] [facility] 02-07-2024 11:02-0400 Heart rate 73 /min [facility] 02-07-2024 11:02-0400 Respiratory rate 12 /min [facility] 02-07-2024 11:02-0400 Systolic blood pressure 132 mm[Hg] [facility] 08-23-2023 11:45-0500 Body height 165.1 cm Moustapha Ball Other [facility] [employer] Other 08-23-2023 11:45-0500 Body mass index (BMI) [Ratio] 24.63 kg/m2 Moustapha Ball Other [employer] Other 08-23-2023 11:45-0500 Body weight 67.13 kg Moustapha Ball Other [employer] Other 08-23-2023 11:45-0500 Diastolic blood pressure 81 mm[Hg] Moustapha Ball Other [employer] Other 08-23-2023 11:45-0500 Respiratory rate 12 /min Moustapha Ball Other [employer] Other 08-23-2023 11:45-0500 Systolic blood pressure 134 mm[Hg] Moustapha Ball Other [employer] Other 08-17-2023 09:00-0500 Body height 165.1 cm Moustapha Ball Other [employer] Other 08-17-2023 09:00-0500 Body mass index (BMI) [Ratio] 25.16 kg/m2 Moustapha Ball Other [employer] Other 08-17-2023 09:00-0500 Body weight 68.58 kg Moustapha Ball Other [employer] Other 08-17-2023 09:00-0500 Diastolic blood pressure 93 mm[Hg] Moustapha Ball Other [employer] Other 08-17-2023 09:00-0500 Respiratory rate 12 /min Moustapha Ball Other [employer] Other 08-17-2023 09:00-0500 Systolic blood pressure 158 mm[Hg] Moustapha Ball Other [employer] Other 12-21-2022 11:30-0400 Body height 165.1 cm Moustapha Ball Other [employer] Other 12-21-2022 11:30-0400 Body mass index (BMI) [Ratio] 25.19 kg/m2 Moustapha Ball Other [employer] Other 12-21-2022 11:30-0400 Body weight 68.68 kg Moustapha Ball Other [employer] Other 12-21-2022 11:30-0400 Diastolic blood pressure Moustapha Ball Other [employer] Other 12-21-2022 11:30-0400 Respiratory rate 16 /min Moustapha Ball Other [employer] Other 12-21-2022 11:30-0400 Systolic blood pressure 112 mm[Hg] Moustapha Ball Other [employer] Other 11-24-2022 09:27-0500 Blood Pressure Location KEIKO ROCK [facility] 11-24-2022 09:27-0500 Diastolic blood pressure 86 mm[Hg] KEIKO ROCK [facility] 11-24-2022 09:27-0500 Heart rate 70 /min KEIKO PIZANORY [facility] 11-24-2022 09:27-0500 Systolic blood pressure 127 mm[Hg] KEIKO LEX [facility] 11-23-2022 10:00-0500 Body height 165.1 cm Margarito Harvey Other [employer] [facility] [employer] Other 11-23-2022 10:00-0500 Body mass index (BMI) [Ratio] 31.61 kg/m2 Margairto Harvey Other [employer] Other 11-23-2022 10:00-0500 Body weight 86.18 kg Margarito Harvey Other [employer] Other 11-23-2022 10:00-0500 Diastolic blood pressure 96 mm[Hg] Margarito Harvey Other [employer] Other 11-23-2022 10:00-0500 Systolic blood pressure 152 mm[Hg] Margarito Brucey Other [employer] Other 09-22-2022 08:22-0500 Blood Pressure Location Cassidy Lue [facility] 09-22-2022 08:22-0500 Diastolic blood pressure 83 mm[Hg] Cassidy Lue [facility] 09-22-2022 08:22-0500 Heart rate 70 /min Cassidy Lue [facility] 09-22-2022 08:22-0500 Respiratory rate 16 /min Cassidy Lue [facility] 09-22-2022 08:22-0500 Systolic blood pressure 130 mm[Hg] Cassidy Parks [facility] 09-22-2021 12:00-0500 74 1 Moustapha E Ball Work Phone: [facility] Work Phone: Comment on above: [id number] 08-17-2021 08:58-0500 Body height 152.4 cm Moustapha Beth Ball Work Phone: [facility] 250 DO Work Phone: 08-17-2021 08:58-0500 Body mass index (BMI) [Ratio] 31.25 kg/m2 Moustapha E Ball Work Phone: [facility] 250 DO Work Phone: 08-17-2021 08:58-0500 Body surface area Derived from formula 1.7 m2 Moustapha E Ball Work Phone: [facility] 250 DO Work Phone: 08-17-2021 08:58-0500 Body weight 72.58 kg Moustapha E Ball Work Phone: [facility] 250 DO Work Phone: 08-17-2021 08:58-0500 Diastolic blood pressure 84 mm[Hg] Moustapha E Ball Work Phone: [facility] 250 DO Work Phone: 08-17-2021 08:58-0500 Heart rate 73 /min Moustapha E Ball Work Phone: [facility] 250 DO Work Phone: 08-17-2021 08:58-0500 Systolic blood pressure 136 mm[Hg] Moustapha E Ball Work Phone: [facility] 250 DO Work Phone: Encounters Encounter Date Encounter Type Care Provider Facility Start: 11-27-2024 ambulatory KEIKO Kirit ROCK Gonzales ty:TONYA Cheungue Start: 05-22-2024 End: 05-22-2024 ambulatory KAITLIN LOWE Not Available Start: 05-17-2024 End: 05-17-2024 ambulatory SERENITY TERAN Not Available Start: 04-18-2024 End: 04-18-2024 ambulatory RADHA AVILA Not Available Start: 03-09-2024 End: 03-09-2024 ambulatory [facility] Work Phone: Start: 03-09-2024 End: 03-09-2024 Patient encounter procedure [facility] Physician [facility] Work Phone: Start: 03-07-2024 Non-patient / Non-visit [facility] Work Phone: Start: 02-28-2024 End: 02-28-2024 ambulatory KAITLIN TORRESKirit Not Available Start: 02-26-2024 End: 02-26-2024 ambulatory ALEXI COLEMAN Not Available Start: 02-09-2024 Non-patient / Non-visit [facility] Work Phone: Start: 02-07-2024 End: 02-07-2024 ambulatory [facility] Work Phone: Start: 02-07-2024 End: 02-07-2024 Patient encounter procedure [facility] Physician [facility] Work Phone: Start: 02-03-2024 Non-patient / Non-visit [facility] Physician [facility] Work Phone: Start: 01-25-2024 Non-patient / Non-visit [facility] Physician [facility] Work Phone: Start: 01-19-2024 Non-patient / Non-visit [facility] Physician [facility] Work Phone: Start: 01-16-2024 Non-patient / Non-visit [facility] Physician [facility] Work Phone: Start: 01-14-2024 Non-patient / Non-visit [facility] Physician [facility] Work Phone: Start: 01-13-2024 Non-patient / Non-visit [facility] Physician [facility] Work Phone: Start: 01-12-2024 Non-patient / Non-visit [facility] Physician [facility] Work Phone: Start: 01-11-2024 Non-patient / Non-visit [facility] Physician [facility] Work Phone: Start: 01-10-2024 Non-patient / Non-visit [facility] Physician [facility] Work Phone: Start: 11-22-2023 End: 11-23-2023 ambulatory KEIKO ROCK Facility:[facility] Start: 10-17-2023 End: 10-17-2023 ambulatory Moustapha Avina Other [employer] Other Start: 10-17-2023 Telephone encounter Moustapha Avina FP [facility] Start: 08-25-2023 End: 08-25-2023 ambulatory Moustapha Avina Other [employer] Other Start: 08-25-2023 Telephone encounter Moustapha Daniela FP [facility] Start: 08-23-2023 End: 08-23-2023 ambulatory Moustapha Avina Other [employer] Other Start: 08-23-2023 Office outpatient visit 15 minutes Moustapha Ball [facility] Start: 08-22-2023 End: 08-22-2023 ambulatory Moustapha Ball Other [employer] Other Start: 08-22-2023 Telephone encounter Moustapha Avina FP [facility] Start: 08-17-2023 End: 08-17-2023 ambulatory Moustapha Avina Other [employer] Other Start: 08-17-2023 Patient encounter procedure Moustapha Avina [facility] Start: 07-10-2023 End: 07-10-2023 ambulatory Moustapha Avina Other [employer] Other Start: 07-10-2023 Telephone encounter Moustapha ANGUIANO [facility] Start: 05-09-2023 End: 05-09-2023 ambulatory Moustapha Avina Other [employer] Other Start: 05-09-2023 Telephone encounter Moustapha ANGUIANO [facility] Start: 05-04-2023 End: 05-05-2023 ambulatory Cassidy Parks Facility:[facility] Start: 01-25-2023 End: 01-25-2023 ambulatory Moustapha Avina Other [employer] Other Start: 01-25-2023 Telephone encounter Moustapha ANGUIANO [facility] Start: 12-21-2022 End: 12-21-2022 ambulatory Moustapha Avina Other [employer] Other Start: 12-21-2022 Office outpatient visit 25 minutes Moustapha Avina [facility] Start: 11-24-2022 End: 11-25-2022 ambulatory KEIKO ROCK Facility:[facility] Start: 11-24-2022 End: 11-24-2022 Patient encounter procedure KEIKO ROKC [facility] Start: 11-23-2022 End: 11-23-2022 ambulatory Margarito Harvey Other [employer] Other Start: 11-23-2022 [facility] visit new patient Margarito Harvey [facility] Start: 11-11-2022 End: 11-11-2022 ambulatory Moustapha Avina Other [employer] Other Start: 11-11-2022 Telephone encounter Moustapha Avina Medical [facility] Start: 10-15-2022 End: 10-16-2022 ambulatory CASSIDY PARKS . Facility:[facility] Start: 09-22-2022 End: 09-22-2022 Lab Drop off Cassidy Parks [facility] Start: 09-22-2022 End: 09-22-2022 Patient encounter procedure Cassidy Parks [facility] Start: 06-08-2022 End: 06-09-[address] MOUSTAPHA AVINA Facility:[facility] Start: 05-21-2022 End: 05-22-[address] MOUSTAPHA AVINA Facility:[facility] Start: 04-28-2022 End: 04-29-[address] MOUSTAPHA AVINA Facility:[facility] Start: 04-06-2022 Adult health examination Moustapha Avina Other [employer] Other Start: 04-04-2022 End: 04-12-2022 Evaluation and management of inpatient DR NAEL SULLIVAN Facility:[facility] Start: 12-30-2021 End: 12-31-[address] ALEXANDER URIBE Facility:[facility] Start: 11-09-2021 End: 11-10-[address] MOUSTAPHA AVINA Facility:[facility] Start: 09-24-2021 Chart Update Moustapha quiroz Work Phone: [facility] 250 DO Work Phone: Start: 09-22-2021 Patient encounter procedure Moustapha Avina Work Phone: [facility] Work Phone: Start: 08-17-2021 Office outpatient visit 25 minutes Moustapha Avina Work Phone: [facility] 250 DO Work Phone: Start: 01-17-2019 End: 01-17-2019 Patient encounter procedure Moustapha Avina Facility:[facility] Procedures Date Procedure Procedure Detail Performing Clinician Start: 01-12-2024 Blood Culture 1 Start: 01-12-2024 Blood Culture 2 Start: 03-16-2017 End: 01-01-2020 Screening for osteoporosis Moustapha Avina Other Start: 02-25-2016 End: 01-01-2020 Screening for malignant neoplasm of colon Moustapha Avina Other Appendectomy Moustapha E Ball Work Phone: Appendectomy Cassidy Lue bilat [...] row has not occurred! Total colonoscopy Moustapha E Daniela Work Phone: Plan of Treatment Date Care Activity Detail Author Start: 10-14-2021 FUV, Provider: Vasquez Claire, Status: Pen, Time: 12:50 PM FUV, Provider: Vasquez Claire, Status: Pen, Time: 12:50 PM -[facility] 250 DO Work Phone: Start: 09-22-2021 STRESS NUC, [facility] [id number], Status: Pen, Time: 12:00 PM STRESS NUC, Provider: SHARYN HERNANDEZI NUCLEAR 01,[id number], Status: Pen, Time: 12:00 PM [employer] 250 DO Work Phone: [facility] Immunizations Immunization Date Immunization Notes Care Provider Ezekiel yang 08-17-2023 influenza virus vaccine, unspecified formulation [facility] 08-17-2023 influenza, high dose seasonal, preservative-free Moustapha Avina Other [facility] [employer] Other 07-17-2021 influenza virus vaccine, unspecified formulation KEIKO ROCK [facility] 07-17-2021 influenza, high dose seasonal, preservative-free Moustapha Avina Work Phone: [employer] 250 DO Work Phone: Comment on above: Series: 06-24-2021 influenza virus vaccine, split virus (incl. purified surface antigen) Moustapha Avina Other [facility] [employer] Other 06-24-2021 influenza virus vaccine, unspecified formulation [facility] 03-13-2021 tetanus and diphther ia toxoids, adsorbed, preservative free, for adult use (5 Lf of tetanus toxoid and 2 Lf of diphtheria toxoid) Moustapha Avina Other [facility] 02-17-2021 pneumococcal polysaccharide vaccine, 23 valent Moustapha Avina Other [facility] 06-04-2020 influenza virus vaccine, split virus (incl. purified surface antigen) Moustapha Avina Other [facility] [employer] Other 06-04-2020 influenza virus vaccine, unspecified formulation KEIKO ROCK [facility] 06-04-2020 influenza, high dose seasonal, preservative-free Moustapha Avina Work Phone: [facility] DO Work Phone: 02-15-2020 pneumococcal conjuga te vaccine, 13 valent Moustapha Kirit Daniela Work Phone: [facility] 03-16-2017 diphtheria, tetanus toxoids and acellular pertussis vaccine, unspecified formulation Moustapha Avina Other [facility] 01-17-2015 zoster vaccine, live Benjjacquelin Avina Other [facility] Payers Date Payer Category Payer Self-pay 2011 Medicare [id number] 1959 Medicare [id number] 1959 Unknown [id number] 1934 Unknown [id number] 2.16.84 0.1.209235.3.579.2.593 1934 Unknown [id number] 2.16.84 0.1.435221.3.579.2.593 1934 Unknown [id number] 2.16.84 0.1.167544.3.579.2.593 1934 Unknown [id number] 2.16.84 0.1.491103.3.579.2.593 1934 Unknown [id number] 2.16.84 0.1.444835.3.579.2.593 1934 Unknown [id number] 2.16.84 0.1.383965.3.579.2.593 1934 Unknown [id number] 2.16.84 0.1.217912.3.579.2.593 1934 Unknown [id number] 2.16.8 40.1.333508.3.579.2.727 1934 Unknown [id number] 2.16.8 40.1.172023.3.579.2.727 1934 Unknown [id number] 2.16.8 40.1.101288.3.579.2.727 1934 Unknown [id number] 2.16.8 40.1.980939.3.579.2.727 1934 Unknown [id number] 2.16.84 0.1.255251.3.579.2.1259 1934 Unknown [id number] 2.16.84 0.1.084349.3.579.2.1259 1934 Unknown [id number] 2.16.84 0.1.926473.3.579.2.1259 1934 Unknown [id number] 2.16.84 0.1.312129.3.579.2.1259 1934 Unknown [id number] 2.16.84 0.1.204500.3.579.2.1259 Unknown [id number] 2.16.84 0.1.905013.3.579.2.531 Unknown Unknown Regular Insurance [id number] Social History Date Type Detail Facility No illicit drug use No illicit drug use [place] [address] DO Work Phone: Start: 01-17-2017 End: 09-22-2022 Tobacco smoking status Never smoked tobacco (finding) [facility] Sex Assigned At Female [facility] Start: 1935 Sex Assigned At Female [facility] Functional Status Date Assessment Result Facility 11-24-2022 Functional Status N/A [facility] 09-22-2022 Functional Status N/A [facility] Clinical Notes 11-09-2021 to 08-23-2023 Note Date [...] adequate fluid balance and to avoid dehydration. [employer] [employer] Other 12-05-2023 History general Narrative - Reported* [...] History DIVERTICULITIS 2021 Hospitalization History see above [facility] Other 11-29-2023 Evaluation note* Encounter Date Diagnosis [...] Ensure daily Check CBC, BS, Hepatic enzymes [facility] Other 11-29-2023 History general Narrative - Reported* [...] History DIVERTICULITIS 2021 Hospitalization History see above [facility] Other 10-25-2023 History general Narrative - Reported* [...] History DIVERTICULITIS 2021 Hospitalization History see above [facility] Other 08-21-2023 Evaluation note* Encounter Date Diagnosis Assessment Notes Treatment Notes Treatment Clinical Notes Apr, Acute cystitis without hematuria (ICD-10 - N30.00) [facility] Other 04-04-2023 Evaluation note* Encounter Date Diagnosis [...] to evaluate for FB in right EAC [facility] Other 03-08-2023 Hospital Discharge instructions Patient Education [...] symptoms are. Treatment may include: Using an fnqu-vat-iujpulu vaginal lubricant before sex. Using a long-acting [...] Follow these instructions at home: Medicines Take fgum-ksf-rhtivpk and prescription medicines only as told by your health care provider. Do not use herbal or alternative medicines unless your health care provider says that you can. Use ophq-ejl-zqyhdvs creams, lubricants, or moisturizers for dryness only [...] 01/20/2016 Document Revised: 08/18/2018 Document Reviewed: 06/01/2018 [employer] Patient Education 2020 [employer] Follow Up Care 09/22/2022 09:57:43 With:KEIKO ROCK PA-C, URL Address: [facility]* Encounter Date Diagnosis Assessment Notes Treatment Notes Treatment Clinical Notes Nov, Constipation (ICD-10 - K59.00) PATIENT TO START ON A MIRALAX DAILY, TITRATION DOSAGE. 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 Follow Up Care 08/24/2022 11:34:30 With:Charly TODD, Cassidy Hanson [facility], URO Address: [address] [place] [phone] When:Within 2 Month(s) [facility] 09-02-2022 NotePROCEDURE: XR GI UPPER AIR [...] Electronically authenticated by: GENO PIZARRO Date: 2022-05-21 10:11[facility]09-02-2022 NotePROCEDURE: XR GI UPPER AIR KUB [...] Electronically authenticated by: GENO PIZARRO Date: 2022-05-21 10:11[facility]02-21-2022 NotePROCEDURE: XR HIP LT 2 3V [...] Electronically authenticated by: ALEXANDER DUMONT Date: 2021-11-09 17:46[facility] Future Appointments Appointment Date:11/24/2022 08:45:00 AM Scheduled Provider:Cassidy Parks MD Location:[facility] Appointment Type:URO Office Visit [facility] evaluation + Plan note Future Appointments Appointment Date:11/24/2022 08:45:00 AM Scheduled Provider:Cassidy Parks MD Location:[facility] Appointment Type:URO Office Visit Diagnostic Tests Pending * [facility]ments Appointment Date:11/22/2023 08:30:00 AM Scheduled Provider:KEIKO ROCK PA-C Location:[facility] Appointment Type:URO Office Visit [facility] evaluation noteNo [employer] Other Evaluation note* Diagnosis Onset Date Resolution Status Alzheimer's dementia acute Chronic kidney disease acute Hypertension acute Pancreatic cyst acute Renal mass, right acute [facility] Work Phone: Evaluation note* Diagnosis Onset Date Resolution Status Alzheimer's dementia acute Anemia acute Chronic kidney disease acute Elevated transaminase level acute Hypertension acute Hyponatremia acute Pancreatic cyst acute Renal mass, right acute Alzheimer's dementia acute Anemia acute BPPV (benign paroxysmal positional vertigo) acute Chronic kidney disease acute Hypertension acute Pancreatic cyst acute Renal mass, right acute [facility] Work Phone: History general Narrative - Reported* [...] History DIVERTICULITIS 2021 Hospitalization History see above [facility] Other History of Present illness NarrativePatient returns [...] that she should [facility] emergency department[facility] DO Work Phone: Hospital course Narrative No data available for this section [facility] Discharge instructions No data available for this section [facility] No data available for this section [facility] reason for visit Narrativewants referral to home health care and therapy[place] [email or web address] Other Summary Purpose Family History No Family [...] t ear, initial encounter (T16.1XXA) Referral Organization [facility] Referring Provider First Name Moustapha Referring Provider Last Name Daniela Referring Provider Specialty Internal Me dicine Referred Provider Tana Woodall Referred Provider Specialty Ear, Nose an d Throat Referral Priority Routine Chief Complaint and Reason for Visit Chief Complaint Amb Documentation Amb Documentation Amb Documentation d/c BCC Reason for Visit Alzheimer's dementia Chronic kidney disease Hypertension Pancreatic cyst Renal mass, right Chief Complaint Amb Documentation Amb Documentation Amb Documentation d/c BCC dizziness Reason for Visit Alzheimer's dementia Anemia Chronic kidney disease Elevated transaminase level Hypertension Hyponatremia Pancreatic cyst Renal mass, right Alzheimer's dementia Anemia BPPV (benign paroxysmal positional vertigo) Chronic kidney disease Hypertension Pancreatic cyst Renal mass, right Additional Source Comments INFORMATION SOURCE (unrecogn ized section and content) DATE CREATED AUTHOR 02/01/2019 [facility] DATE CREATED AUTHOR AUTHOR'S ORGANIZ ATION 08/18/2021 [employer] DATE CREATED AUTHOR AUTHOR'S ORGANIZ ATION 09/24/2021 [facility] DATE CREATED AUTHOR AUTHOR'S ORGANIZ ATION 10/20/2022 [facility] DATE CREATED AUTHOR AUTHOR'S ORGANIZ ATION 11/23/2023 [facility] DATE CREATED AUTHOR AUTHOR'S ORGANIZ ATION 05/22/2024 [facility] [employer] Patient Care team informatio n (unrecognized section and content) Team Status: Active Member Role Status Dates Moustapha Avina DO Primary Care Provider Active Team Status: Active Member Role Status Dates Moustapha Avina DO Primary Care Provide r, Attending Provider Active Start: January 10, 2024 Team Status: Active Member Role Status Dates Moustapha Avina DO Primary Care Provide r, Attending Provider Active Start: January 11, 2024 Team Status: Active Member Role Status Dates Moustapha Avina DO Primary Care Provide r, Attending Provider [...] Status: Active Member Role Status Dates Moustapha Daniela , DO Primary Care Provider Active Start: January 25, 2024 FRANKLIN Santizo Attending Provider Active Start : January 25, 2024 Team Status: Active Member Role Status Dates Moustapha Avina , DO Primary Care Provider Active Start: February 03, 2024 FRANKLIN Williamson Attending Provider Active St art: February 03, 2024 Team Status: Inactive Member Role Status Dates Moustapha Avina , DO Primary Care Provide r, Attending Provider Active Start: February 07, 2024 End: February 07, 2024 Team Status: Active Member Role Status Dates Moustapha Avina , DO Primary Care Provide r, Attending Provider Active Start: February 09, 2024 Team Status: Active Member Role Status Dates Moustapha Avina , DO Primary Care Provider Active Start: March 07, 2024 Kaitlin Prieto PA-C Attending Provider Active Sta rt: March 07, 2024 Team Status: Inactive Member Role Status Lula Avina , DO Primary Care Provide r, Attending Provider Active Start: March 09, 2024 End: March 09, 2024 REASON FOR VISIT (unrecogniz ed section [...] BE BASED ON THE PRIMARY CLINICAL RECORDS. [facility] [employer] [facility]. provides no warranty or guarantee of the accuracy or completeness of information in this document.
[2024-06-08 08:59] LABS: Basophils Percent Auto 0.4 % (0.2-2.0); Eosinophils Absolute Auto 0.1 10^3/uL (0.0-0.7); Eosinophils Percent Auto 1.9 % (0.9-7.0); Hematocrit 41.3 % (36.0-48.0); Hemoglobin 13.4 g/dL (12.0-16.0); Immature Granulocytes Abs Auto 0.01 10^3/uL (0.00-0.03); Immature Granulocytes Pct Auto 0.2 % (0.0-0.5); Lymphocytes Absolute Auto 1.5 10^3/uL (1.2-3.8); Lymphocytes Percent Auto 30.1 % (20.5-60.0); Mean Corpuscular HGB Conc 32.4 g/dL (29.9-35.2); Mean Corpuscular Hemoglobin 30.3 pg (26.7-34.0); Mean Corpuscular Volume 93.4 fL (81.0-99.0); Monocytes Absolute Auto 0.4 10^3/uL (0.3-0.8); Monocytes Percent Auto 8.9 % (1.7-12.0); Neutrophils Absolute Auto 2.8 10^3/uL (1.4-6.5); Neutrophils Percent Auto 58.5 % (43.0-75.0); Platelet Count 194 10^3/uL (150-450); Red Blood Count 4.42 10^6/uL (4.20-5.40); Red Cell Distribution Width 14.1 % (11.0-15.0); White Blood Count 4.8 10^3/uL (4.0-11.0)
[2024-06-08 09:34] LABS: Alanine Aminotransferase 50 U/L (14-59); Albumin Globulin Ratio 0.9; Albumin Level 3.2 g/dL (3.4-5.0); Alkaline Phosphatase 139 U/L (46-116); BUN Creatinine Ratio 28.3; Bilirubin Total 0.4 mg/dL (0.2-1.0); Calcium 8.9 mg/dL (8.5-10.1); Estimated GFR (African America 48 (>=60); Estimated GFR (Non-African Ame 40 (>=60); Globulin 3.5 g/dL; Glucose 81 mg/dL (74-106); Total Protein 6.7 g/dL (6.4-8.2)
[2024-06-08 09:44] LABS: Anion Gap 11.3; Aspartate Amino Transferase 47 U/L (15-37); Carbon Dioxide 28.3 mmol/L (21.0-32.0); Chloride 106 mmol/L (98-107); Potassium 4.6 mmol/L (3.5-5.1); Sodium 141 mmol/L (136-145)
== END 2024-06-08 08:29 | disposition home or self-care (01) ==
LOC: LAB 08:31
PROVIDERS: PCP Internal Medicine; Visit Provider Internal Medicine
DX: D64.9 Anemia, unspecified (principal); I10 Essential (primary) hypertension; N18.9 Chronic kidney disease, unspecified; R74.01 Elevation of levels of liver transaminase levels; E87.1 Hypo-osmolality and hyponatremia
CPT/HCPCS: 36415; 80053; 84443; 85025

== ENCOUNTER 2024-07-11 12:04 | Outpatient (RCR) | payer MEDICARE, SELFPAY | END 2024-07-13 12:39 | disposition home or self-care (01) | LOC: OT 12:04 | PROVIDERS: PCP Internal Medicine; Visit Provider Physician Assistant Medical | DX: I67.9 Cerebrovascular disease, unspecified (principal) ==